=== PATIENT | male | born 1965 | race African-American/Black ===

== ENCOUNTER 2018-06-07 22:10 | Inpatient (IN) | payer MEDICARE ==
[~2018-06-07] VITALS: Ht 180.3 cm; Wt 132.5 kg
[~2018-06-07 22:10] MED LIST: ETOMIDATE 40 MG/ 20ML VIAL IV ONE; SUCCINYLCHOLINE 200 MG/10 ML SYR ONE
--- OUTSIDE RECORDS SUMMARY | 2018-06-07 22:16 | XMS REPORT | Continuity of Care Document ---
Author Author [facility] Organization Interface Address Unknown Phone Unavailable Problems Problem Status Onset Date Classification Date Reported Comments Source CHF EXACERBATION, TIA Active 05/30/2018 [place] CHEST PAIN/SOB/SLURRED SPEACH Active 05/29/2018 [facility] CHEST PAIN, CHOLELITHIASIS Active 05/03/2018 [facility] SHORTNESS OF BREATH Active 05/03/2018 [facility] RESPIRATORY DISTRESS, CHF EXACERBATION Active 03/31/2018 [facility] SOB/CP Active 03/31/2018 [facility] CHEST PAIN/DIFFICULTY BREATHING Active 03/26/2018 [facility] CHEST PAIN, DYSPNEA Active 03/26/2018 [facility] HYPERCAPNIC RESPIRATORY FAILURE Active 01/31/2018 [facility] SHORTNESS OR BREATH, RESPIRATORY ACIDOSI Active 01/05/2018 [facility] SHORTNESS OR BREATH Active [facility]/05/[facility] CHEST [facility]IN Active 11/30/2017 [facility] ACUTE EXACERBATION OF CHF,ACUTE RESPIRAT Active 11/30/2017 [facility] Hypertensive heart and chronic kidney disease with heart failure and stage 1 through stage 4 chronic kidney disease, or unspecified chronic kidney disease 11/15/2017 02/14/2018 [facility] ELEVATED TROPONIN, HTN, SOB, RESP FAILUR Active 11/05/2017 [facility] Hypertension Resolved Problem 02/14/2018 [facility] Type II diabetes mellitus poorly controlled Active Problem 02/14/2018 [facility] Shortness of breath 02/14/2018 [facility] Acute respiratory failure with hypercapnia 02/14/2018 [facility] Acute respiratory failure with hypoxia 02/14/2018 [facility] Acute kidney failure, unspecified 02/14/2018 [facility] Morbid obesity due to excess calories 02/14/2018 [facility] Cardiomyopathy, unspecified 02/14/2018 [facility] Acute systolic heart failure 02/14/2018 [facility] Body mass index 36.0-36.9, adult 02/14/2018 [facility] Obstructive sleep apnea (pediatric) 02/14/2018 [facility] Chronic kidney disease, unspecified 02/14/2018 [facility] ABNORMAL LEVELS OF OTHER SERUM ENZYMES Active [facility] ESSENTIAL (PRIMARY) HYPERTENSION Active [facility] SHORTNESS OF BREATH Active [facility] ACUTE RESPIRATORY FAILURE, UNSP W HYPOXI Active [facility] ACIDOSIS Active [facility] RESPIRATORY FAILURE, UNSPECIFIED WITH HY Active [facility] CHEST PAIN, UNSPECIFIED Active [facility] DYSPNEA, UNSPECIFIED Active [facility] CALCULUS OF GALLBLADDER W/O CHOLECYSTITI Active [facility] TRANSIENT CEREBRAL ISCHEMIC ATTACK, UNSP Active [facility] HEART FAILURE, UNSPECIFIED Active [facility] Medications Medication Details Route Status Patient Instructions Ordering Provider Order Date Source Albuterol 0.83 MG/ML Inhalant Solution 2.49 mg=3 mL, INHALATION, Q6H, PRN wheezing, coughing, or shortness of breath, # 100 ea, 5 Refill(s), Pharmacy: [id number] Active 02/03/2018 [facility] Furosemide 40 MG Oral Tablet [Lasix] 40 mg=1 tab, PO, BID, # 60 tab, 5 Refill(s), Pharmacy: [id number] Active 02/03/2018 [facility] Metformin hydrochloride 500 MG Oral Tablet 500 mg, 1 tab, Route: PO, Drug form: TAB, BID, Dosing Weight 131, kg, Start date: 02/03/18 9:00:00 CDT, Duration: 30 day, Stop date: 03/04/18 17:00:00 CDTNotes: (Same as: Glucophage) Take with meal Inactive 02/03/2018 [facility] Insulin Lispro 2 unit, 0.02 mL, Route: SUB-Q, Drug form: SOLN, ONCE, Dosing Weight 131, kg, Start date: 02/02/18 23:24:00 CDT, Stop date: 02/02/18 23:24:00 CDTNotes: (Same as: Humalog ) Roll in palms of hands gently; Do not shake `vigorously. "Single Patient Use Only " WASTE: F/P - Black; E - Municipal Trash Bin Stable for 28 days at room temperature. Expires in days from Date No Longer Active 02/03/2018 [facility] Enoxaparin 40 mg, 0.4 mL, Route: SUB-Q, Drug form: INJ, [id number], Dosing Weight 131, kg, Start date: 02/02/18 11:00:00 CDT, Duration: 30 day, Stop date: 03/03/18 23:00:00 CDTNotes: (Same as: Lovenox) No Longer Active 02/02/2018 [facility] Prednisone 20 mg, 1 tab, Route: PO, Drug form: TAB, Daily, Dosing Weight 131, kg, Start date: 02/02/18 9:00:00 CDT, Stop date: 03/03/18 9:00:00 CDTNotes: Take with food. No Longer Active 02/02/2018 [facility] Lasix 40 mg, 4 mL, Route: IVP, Drug form: INJ, BID, Dosing Weight 131, kg, Start date: 02/01/18 11:53:00 CDT, Duration: 30 day, Stop date: 03/03/18 9:00:00 CDTNotes: (Same as: Lasix) MEDICATION WASTE Product Size: 40 mg Product Wasted: ___ mg No Longer Active 02/01/2018 [facility] Acetaminophen 325 MG / Hydrocodone Bitartrate 10 MG Oral Tablet [Pawnee 10/325] 1 tab, Route: PO, Drug Form: TAB, Dosing Weight 98.182, kg, Q6H, PRN Pain Score 4-6, Start date: 02/01/18 11:40:00 CDT, Duration: 30 day, Stop date: 03/03/18 11:39:00 CDTNotes: Do not exceed 4gm/day of acetaminophen. (Same as: P[place]nee 325/10) No Longer Active 02/01/2018 [facility] Morphine 6 mg, 3 mL, Route: PO, Drug form: SOLN, Q4H, Dosing Weight 131, kg, PRN Pain Score 7-10, Start date: 02/01/18 11:09:00 CDT, Duration: 30 day, Stop date: 03/03/18 11:08:00 CDTNotes: (Same as:MORPhine Sulfate) No Longer Active 02/01/2018 [facility] valsartan 240 mg, 3 tab, Route: PO, Drug form: TAB, Daily, Dosing Weight 98.182, kg, Start date: 02/01/18 9:00:00 CDT, Duration: 30 day, Stop date: 03/02/18 9:00:00 CDTNotes: Same as Diovan No Longer Active 02/01/2018 [facility] potassium chloride 10 mEq oral tablet, extended release 10 mEq, 1 tab, Route: PO, Drug form: ERTAB, Daily, Dosing Weight 98.182, kg, Start date: 02/01/18 9:00:00 CDT, Duration: 30 day, Stop date: 03/02/18 9:00:00 CDTNotes: (Same as: K-Dur 10) "Do Not Crush" With food and full glass of water No Longer Active 02/01/2018 [facility] NIFEdipine 30 mg oral tablet, extended release 30 mg, 1 tab, Route: PO, Drug form: ERTAB, Daily, Dosing Weight 98.182, kg, Start date: 02/01/18 9:00:00 CDT, Duration: 30 day, Stop date: 03/02/18 9:00:00 CDTNotes: (Same as: Adalat CC, Procardia XL) Give on empty stomach. Take 1 hour before or 2 hours after meal; "Avoid grapefruit and grapefruit juice". Do not crush No Longer Active 02/01/2018 [facility] Aspirin 81 MG Enteric Coated Tablet 81 mg, 1 tab, Route: PO, Drug form: ECTAB, Daily, Dosing Weight 98.182, kg, Start date: 02/01/18 9:00:00 CDT, Duration: 30 day, Stop date: 03/02/18 9:00:00 CDTNotes: Do not crush or chew. (Same As: Ecotrin) No Longer Active 02/01/2018 [facility] Lasix 40 mg, Route: IVP, Drug form: INJ, BID Diuretic, Dosing Weight 98.182, kg, Start date: 02/01/18 8:00:00 CDT, Duration: 30 day, Stop date: 03/02/18 16:00:00 CDT No Longer Active 02/01/2018 [facility] Albuterol 0.833 MG/ML / Ipratropium [place] 0.167 MG/ML Inhalant Solution 3 mL, Route: NEB, Drug Form: SOLN, Dosing Weight 98.182, kg, RQ6H, Start date: 02/01/18 2:00:00 CDT, Duration: 30 day, Stop date: 03/02/18 20:00:00 CDTNotes: (Same as: Duoneb) No Longer Active 02/01/2018 [facility] methylPREDNISolone SODium SUCCinate 40 mg, 1 mL, Route: IVP, Drug form: INJ, Q8H, Dosing Weight 98.182, kg, Start date: 02/01/18 0:00:00 CDT, Duration: 5 day, Stop date: 02/05/18 16:00:00 CDTNotes: (Same as:Solu-MEDROL, A-Methapred) Inactive 02/01/2018 [facility] Acetaminophen 325 MG / Hydrocodone Bitartrate 10 MG Oral Tablet [P[place]nee 10/325] 1 tab, Route: PO, Drug Form: TAB, Dosing Weight 98.182, kg, Q6H, Start date: 02/01/18 0:00:00 CDT, Duration: 30 day, Stop date: 03/02/18 18:00:00 CDTNotes: Do not exceed 4gm/day of acetaminophen. (Same as: P[place] 325/10) Inactive 02/01/2018 [facility] Furosemide 40 MG Oral Tablet [Lasix] 40 mg=1 tab, PO, BID, 0 Refill(s) No Longer Active 02/01/2018 [facility] atorvastatin 20 mg oral tablet 20 mg=1 tab, PO, Bedtime, # 30 tab, 0 Refill(s) Active 02/01/2018 [facility] carvedilol 25 mg oral tablet 25 mg=1 tab, PO, BID, # 180 tab, 1 Refill(s) Active 02/01/2018 [facility] zolpidem 10 mg oral tablet 10 mg=1 tab, PO, Bedtime, # 14 tab, 0 Refill(s) No Longer Active 02/01/2018 [facility] Morphine 2 mg, 2 mL, Route: IVP, Drug form: SOLN, Q4H, Dosing Weight 98.182, kg, PRN Pain Score 7-10, Priority: STAT, Start date: 01/31/18 21:01:00 CDT, Duration: 30 day, Stop date: 03/02/18 21:00:00 CDTNotes: Preservative free. (Same as: Morphine Sulfate-PF) No Longer Active 02/01/2018 [facility] Levofloxacin 750 mg, 150 mL, Route: IVPB, Drug form: SOLN, [id number], Dosing Weight 98.182, kg, for CrCl >49 mL/min, Start date: 01/31/18 21:00:00 CDT, Duration: 5 day, Stop date: 02/04/18 21:00:00 CDT, ABX Indication: Non-PNA Respiratory Tract InfectionNotes: (Same as:Levaquin) No Longer Active 02/01/2018 [facility] Ambien 5 mg, 1 tab, Route: PO, Drug form: TAB, Bedtime, Dosing Weight 98.182, kg, Start date: 01/31/18 21:00:00 CDT, Duration: 30 day, Stop date: 03/01/18 21:00:00 CDTNotes: (Same As: Ambien) No Longer Active 02/01/2018 [facility] carvedilol 25 mg, 2 tab, Route: PO, Drug form: TAB, Q12H, Dosing Weight 98.182, kg, Start date: 01/31/18 21:00:00 CDT, Duration: 30 day, Stop date: 03/02/18 9:00:00 CDTNotes: Give with food. (Same As: Coreg) No Longer Active 02/01/2018 [facility] atorvastatin 20 mg, 2 tab, Route: PO, Drug form: TAB, Bedtime, Dosing Weight 98.182, kg, Start date: 01/31/18 21:00:00 CDT, Duration: 30 day, Stop date: 03/01/18 21:00:00 CDTNotes: (Same As: Lipitor) No Longer Active 02/01/2018 [facility] Insulin Lispro 15 unit, 0.15 mL, Route: SUB-Q, Drug form: SOLN, TID-Before Meals, Dosing Weight 98.182, kg, PRN Blood Glucose Results, Start date: 01/31/18 20:38:00 CDT, Duration: 30 day, Stop date: 03/02/18 20:37: 00 CDTNotes: (Same as: Humalog ) Roll in palms of hands gently; Do not shake `vigorously. "Single Patient Use Only " WASTE: F/P - Black; E - Municipal Trash Bin Stable for 28 days at room temperature. Expires in days from Date No Longer Active 02/01/2018 [facility] Glucagon 1 mg, Route: IM, Drug form: PDR/INJ, PRN, Dosing Weight 98.182, kg, PRN Blood Glucose Results, Start date: 01/31/18 20:38:00 CDT, Duration: 30 day, Stop date: 03/02/18 20:37:00 CDT No Longer Active 02/01/2018 [facility] Dextrose 50% Syringe 25 gm, 50 mL, Route: IVP, Drug Form: INJ, Dosing Weight 98.182, kg, PRN, PRN Blood Glucose Results, Start date: 01/31/18 20:38:00 CDT, Duration: 30 day, Stop date: 03/02/18 20:37:00 CDT No Longer Active 02/01/2018 [facility] Albuterol 0.83 MG/ML Inhalant Solution 2.5 mg, 3.01 mL, Route: NEB, Drug form: SOLN, RQ2H, Dosing Weight 98.182, kg, PRN Wheezing, Priority: Routine, Start date: 01/31/18 20:35:00 CDT, Duration: 30 day, Stop date: 03/02/18 20:34:00 CDTNotes: SEE RT DOCUMENTATION (Same as: Donnell) No Longer Active 02/01/2018 [place] Sodium Chloride 0.9% (Bolus) IV 1,000 mL, 1000 ml/hr, Infuse Over: 1 hr, Route: IV, 1,000, Drug form: INJ, ONCE, Priority: STAT, Dosing Weight 98.182 kg, Start date: 01/31/18 18:05:00 CDT, Stop date: 01/31/18 18:05:00 CDT Inactive 01/31/2018 [facility] Naloxone 2 mg, 2 mL, Route: IVP, Drug form: INJ, ONCE, Dosing Weight 98.182, kg, Priority: STAT, Start date: 01/31/18 18:05:00 CDT, Stop date: 01/31/18 18:05:00 CDTNotes: (Same as: Tanesha) MEDICATION WASTE Product Size: 2 mg Product Wasted: ___ mg Inactive 01/31/2018 [facility] Albuterol 0.833 MG/ML / Ipratropium [place] 0.167 MG/ML Inhalant Solution [DuoNeb] 9 mL, Route: NEB, Drug Form: SOLN, Dosing Weight 98.182, kg, PRN, PRN Respiratory Pathway, Start date: 01/31/18 18:04:00 CDT, Duration: 30 day, Stop date: 03/02/18 18:03:00 CDTNotes: (Same as: Duoneb) No Longer Active 01/31/2018 [facility] Solu-Medrol 125 mg, Route: IVP, ONCE, Dosing Weight 98.182, kg, Priority: STAT, Start date: 01/31/18 17:18:00 CDT, Stop date: 01/31/18 17:18:00 CDT Inactive 01/31/2018 [facility] Saline Flush 0.9% 10 mL, Route: IVP, Drug Form: INJ, Dosing Weight 98.182, kg, PRN, PRN Line Flush, Start date: 01/31/18 17:08:00 CDT, Duration: 30 day, Stop date: 03/02/18 17:07:00 CDTNotes: (Same as: BD Posiflush) No Longer Active 01/31/2018 [facility] Furosemide 40 MG Oral Tablet [Lasix] 40 mg=1 tab, PO, BID, # 60 tab, 0 Refill(s), Pharmacy: [facility] Active 01/09/2018 [facility] NIFEdipine 30 mg oral tablet, extended release 30 mg=1 tab, PO, Daily, # 30 tab, 0 Refill(s), Pharmacy: [id number] Active 01/09/2018 [facility] predniSONE 20 mg oral tablet 20 mg=1 tab, PO, Daily, X 5 day, # 5 tab, 0 Refill(s), Pharmacy: [id number] Active 01/09/2018 [facility] valsartan 80 mg oral tablet 240 mg=3 tab, PO, Daily, # 90 tab, 0 Refill(s), Pharmacy: [facility] Active 01/09/2018 [facility] carvedilol 25 mg oral tablet 25 mg=1 tab, PO, Q12H, # 60 tab, 0 Refill(s), Pharmacy: [id number] Active 01/09/2018 [facility] Furosemide 40 MG Oral Tablet [Lasix] 40 mg, 1 tab, Route: PO, Drug form: TAB, BID, Dosing Weight 134.4, kg, Start date: 01/09/18 10:00:00 CDT, Duration: 30 day, Stop date: 02/08/18 9:00:00 CDTNotes: (Same as: Lasix) May cause GI upset. Give with food or milk. Inactive 01/09/2018 [facility] Nifedical XL 30 mg, 1 tab, Route: PO, Drug form: ERTAB, Daily, Dosing Weight 134.4, kg, Priority: NOW, Start date: 01/08/18 18:06:00 CDT, Duration: 30 day, Stop date: 02/07/18 9:00:00 CDTNotes: (Same as: Adalat C C, Procardia XL) Give on empty stomach. Take 1 hour before or 2 hours after meal; "Avoid grapefruit and grapefruit juice". Do not crush No Longer Active 01/08/2018 [facility] Prednisone 20 mg, 1 tab, Route: PO, Drug form: TAB, Daily, Dosing Weight 134.4, kg, Start date: 01/08/18 9:00:00 CDT, Stop date: 02/06/18 9:00:00 CDTNotes: Take with food. No Longer Active 01/08/2018 [facility] valsartan 240 mg, 3 tab, Route: PO, Drug form: TAB, Daily, Dosing Weight 134.4, kg, Start date: 01/08/18 9:00:00 CDT, Duration: 30 day, Stop date: 02/06/18 9:00:00 CDTNotes: Same as Diovan No Longer Active 01/08/2018 [facility] carvedilol 25 mg, 2 tab, Route: PO, Drug form: TAB, Q12H, Dosing Weight 134.4, kg, Start date: 01/08/18 9:00:00 CDT, Duration: 30 day, Stop date: 02/06/18 21:00:00 CDTNotes: Give with food. (Same As: Coreg) No Longer Active 01/08/2018 [facility] carvedilol 12.5 mg, 1 tab, Route: PO, Drug form: TAB, Q12H, Dosing Weight 134.4, kg, Start date: 01/07/18 21:00:00 CDT, Duration: 30 day, Stop date: 02/06/18 9:00:00 CDTNotes: Give with food. (Same As: Coreg) Inactive 01/08/2018 [facility] atorvastatin 20 mg, 2 tab, Route: PO, Drug form: TAB, Bedtime, Dosing Weight 134.4, kg, Start date: 01/07/18 21:00:00 CDT, Duration: 30 day, Stop date: 02/05/18 21:00:00 CDTNotes: (Same As: Lipitor) No Longer Active 01/08/2018 [facility] Amitriptyline 25 mg, 1 tab, Route: PO, Drug form: TAB, Bedtime, Dosing Weight 134.4, kg, Start date: 01/07/18 21:00:00 CDT, Duration: 30 day, Stop date: 02/05/18 21:00:00 CDTNotes: (Same as: Elavil) No Longer Active 01/08/2018 [facility] valsartan 160 mg, 1 tab, Route: PO, Drug form: TAB, Daily, Dosing Weight 134.4, kg, Start date: 01/07/18 15:00:00 CDT, Duration: 30 day, Stop date: 02/06/18 9:00:00 CDTNotes: Same as Diovan Inactive 01/07/2018 [facility] Hydralazine 10 mg, 0.5 mL, Route: IVP, Drug form: INJ, Q6H, Dosing Weight 134.4, kg, PRN Hypertension, Start date: 01/07/18 13:56:00 CDT, Duration: 30 day, Stop date: 02/06/18 13:55:00 CDTNotes: (Same as: Joan price) Push over 5 minutes No Longer Active 01/07/2018 [facility] Insulin Lispro 3 unit, 0.03 mL, Route: SUB-Q, Drug form: SOLN, TID-Before Meals, Dosing Weight 134.4, kg, PRN Blood Glucose Results, Start date: 01/07/18 11:35:00 CDT, Duration: 30 day, Stop date: 02/06/18 11:34:00 CDTNotes: (Same as: Humalog ) Roll in palms of hands gently; Do not shake `vigorously. "Single Patient Use Only " WASTE: F/P - Black; E - Municipal Trash Bin Stable for 28 days at room temperature. Expires in days from Date No Longer Active 01/07/2018 [facility] Insulin Glargine 100 UNT/ML Injectable Solution [Lantus] 20 unit, 0.2 mL, Route: SUB-Q, Drug form: SOLN, Daily, Dosing Weight 134.4, kg, Start date: 01/07/18 9:55:00 CDT, Duration: 30 day, Stop date: 02/06/18 9:00:00 CDTNotes: (Same as: Lantus) Do not hold insulin without contacting prescriber WASTE: F/P - Black; E - Municipal Trash Bin "single patient use only" No Longer Active 01/07/2018 [facility] Glucagon 1 mg, Route: IM, Drug form: PDR/INJ, PRN, Dosing Weight 134.4, kg, PRN Blood Glucose Results, Start date: 01/06/18 16:46:00 CDT, Duration: 30 day, Stop date: 02/05/18 16:45:00 CDT No Longer Active 01/06/2018 [facility] Dextrose 50% Syringe 25 gm, 50 mL, Route: IVP, Drug Form: INJ, Dosing Weight 134.4, kg, PRN, PRN Blood Glucose Results, Start date: 01/06/18 16:46:00 CDT, Duration: 30 day, Stop date: 02/05/18 16:45:00 CDT No Longer Active 01/06/2018 [facility] Insulin Lispro 2 unit, 0.02 mL, Route: SUB-Q, Drug form: SOLN, TID-Before Meals, Dosing Weight 134.4, kg, PRN Blood Glucose Results, Start date: 01/06/18 16:46:00 CDT, Duration: 30 day, Stop date: 02/05/18 16:45:00 CDTNotes: (Same as: Humalog ) Roll in palms of hands gently; Do not shake `vigorously. "Single Patient Use Only " WASTE: F/P - Black; E - Municipal Trash Bin Stable for 28 days at room temperature. Expires in days from Date No Longer Active 01/06/2018 [facility] Acetaminophen 325 MG / Hydrocodone Bitartrate 5 MG Oral Tablet [Pawnee 5/325] 1 tab, Route: PO, Drug Form: TAB, Dosing Weight 134.4, kg, Q4H, PRN Pain Score 4-6, Start date: 01/06/18 11:43:00 CDT, Duration: 30 day, Stop date: 02/05/18 11:42:00 CDTNotes: (Same as: [place] 325/5) Do not exceed 4gm/day of acetaminophen. No Longer Active 01/06/2018 [facility] Tylenol 650 mg, 2 tab, Route: PO, Drug form: TAB, Q6H, Dosing Weight 134.4, kg, PRN Pain 1-3/Temp > 100.4 F, Start date: 01/06/18 11:43:00 CDT, Duration: 30 day, Stop date: 02/05/18 11:42:00 CDTNotes: Do not exceed 4 gm/day. (Same as: Tylenol) No Longer Active 01/06/2018 [facility] methylPREDNISolone SODium SUCCinate 40 mg, 1 mL, Route: IVP, Drug form: INJ, Q12H, Dosing Weight 134.4, kg, Start date: 01/06/18 9:00:00 CDT, Duration: 30 day, Stop date: 02/04/18 21:00:00 CDTNotes: (Same as:Solu-MEDROL, A-Methapred) No Longer Active 01/06/2018 [facility] Albuterol 0.833 MG/ML / Ipratropium [place] 0.167 MG/ML Inhalant Solution 3 mL, Route: NEB, Drug Form: SOLN, Dosing Weight 134.4, kg, RQ6H, Start date: 01/06/18 8:00:00 CDT, Duration: 30 day, Stop date: 02/05/18 2:00:00 CDTNotes: (Same as: Duoneb) No Longer Active 01/06/2018 [facility] Enoxaparin 40 mg, 0.4 mL, Route: SUB-Q, Drug form: INJ, [id number], Dosing Weight 134.4, kg, Consider for obese patients, Start date: 01/06/18 7:00:00 CDT, Duration: 30 day, Stop date: 02/04/18 19:00:00 CDTNotes: (Same as: Lovenox) No Longer Active 01/06/2018 [facility] Budesonide 0.25 MG/ML Inhalant Solution 0.5 mg, 2 mL, Route: NEB, Drug form: SUSP, RQ12H, Dosing Weight 134.4, kg, Start date: 01/06/18 6:52:00 CDT, Stop date: 02/04/18 20:00:00 CDT, Notes: (Same As: Pulmicort) No Longer Active 01/06/2018 [facility] Albuterol 0.833 MG/ML / Ipratropium [place] 0.167 MG/ML Inhalant Solution [DuoNeb] 3 ml, Route: NEB, Drug Form: SOLN, Dosing Weight 134.4, kg, PRN, PRN Respiratory Pathway, Start date: 01/06/18 6:52:00 CDT, Duration: 30 day, Stop date: 02/05/18 6:51:00 CDTNotes: (Same as: Duoneb) No Longer Active 01/06/2018 [facility] Lasix 40 mg, 4 mL, Route: IVP, Drug form: INJ, Q12H, Dosing Weight 134.4, kg, Start date: 01/06/18 6:52:00 CDT, Duration: 30 day, Stop date: 02/04/18 21:00:00 CDTNotes: (Same as: Lasix) MEDICATION WASTE Product Size: 40 mg Product Wasted: ___ mg No Longer Active 01/06/2018 [facility] Albuterol 0.833 MG/ML / Ipratropium [place] 0.167 MG/ML Inhalant Solution 3 mL, Route: NEB, Drug Form: SOLN, Dosing Weight 134, kg, ONCE, STAT, Start date: 01/06/18 5:38:00 CDT, Stop date: 01/06/18 5:38:00 CDTNotes: (Same as: Duoneb) Inactive 01/06/2018 [facility] Albuterol 0.83 MG/ML Inhalant Solution 10 mg, 12.05 mL, Route: NEB, Drug form: SOLN, Continuous, Dosing Weight 134, kg, Priority: STAT, Start date: 01/06/18 5:38:00 CDT, Duration: 30 day, Stop date: 02/05/18 5:37:00 CDTNotes: SEE RT DOCUMENTATION (Same as: Proventil) Inactive 01/06/2018 [facility] Aspirin 325 mg, 1 tab, Route: PO, Drug form: ECTAB, ONCE, Dosing Weight 134, kg, Priority: STAT, Start date: 01/06/18 5:09:00 CDT, Stop date: 01/06/18 5:09:00 CDTNotes: (Do Not Crush) Do not crush or chew. Inactive 01/06/2018 [facility] Zofran 4 mg, Route: IVP, Drug form: INJ, ONCE, Dosing Weight 142.591, kg, Priority: STAT, Start date: 01/06/18 3:36:00 CDT, Stop date: 01/06/18 3:36:00 CDT Inactive 01/06/2018 [facility] Morphine 4 mg, Route: IVP, ONCE, Dosing Weight 142.591, kg, Priority: STAT, Start date: 01/06/18 3:36:00 CDT, Stop date: 01/06/18 3:36:00 CDT Inactive 01/06/2018 [facility] Saline Flush 0.9% 10 mL, Route: IVP, Drug Form: INJ, Dosing Weight 142.591, kg, PRN, PRN Line Flush, Start date: 01/06/18 3:20:00 CDT, Duration: 30 day, Stop date: 02/05/18 3:19:00 CDTNotes: Same as: BD Posiflush Sterile No Longer Active 01/06/2018 [facility] potassium chloride 10 mEq oral capsule, extended release 10 mEq=1 cap, PO, Daily, # 30 cap, 0 Refill(s), Pharmacy: [id number] Active 12/04/2017 [facility] Furosemide 40 MG Oral Tablet [Lasix] 40 mg=1 tab, PO, BID, X 30 day, # 60 tab, 1 Refill(s), Pharmacy: [facility] [id number] Active 12/04/2017 [facility] valsartan 160 mg oral tablet 160 mg=1 tab, PO, Daily, X 30 day, # 30 tab, 0 Refill(s), Pharmacy: [facility] [id number] Active 12/04/2017 [facility] atorvastatin 20 mg oral tablet 20 mg=1 tab, PO, Bedtime, X 30 day, # 30 tab, 0 Refill(s), Pharmacy: [facility] Store [id number] Active 12/04/2017 [facility] Metformin hydrochloride 500 MG Oral Tablet 500 mg=1 tab, PO, BID-Meals, X 30 day, # 60 tab, 0 Refill(s), Pharmacy: [facility] [id number] Active 12/04/2017 [facility] Accu-Chek Guide Blood Glucose Test Strips 1 ea, MISC, Daily, Use for blood glucose monitoring., # 100 ea, Not insulin dependent, Does not use insulin pump, Last DM eval date 12/04/17, 0 Refill(s) Active 12/04/2017 [facility] Accu-Chek FastClix Lancets 1 ea, MISC, Daily, Use for blood glucose monitoring., # 30 ea, Not insulin dependent, Does not use insulin pump, Last DM eval date 12/04/17, 0 Refill(s) Active 12/04/2017 [facility] Nebulizer 1 ea, MISC, ONCALL, # 1 ea, 0 Refill(s) Active 12/04/2017 [facility] Albuterol 0.83 MG/ML Inhalant Solution 2.49 mg=3 mL, INHALATION, Q6H, PRN wheezing, coughing, or shortness of breath, # 100 ea, 0 Refill(s), Pharmacy: [facility] [place] [id number] Active 12/04/2017 [facility] Accu-Chek Guide Blood Glucose Meter 1 ea, MISC, ONCE, Use for blood glucose monitoring, # 1 ea, Not insulin dependent, Does not use insulin pump, Last DM eval date 12/04/17, 0 Refill(s) Active 12/04/2017 [facility] potassium chloride 20 mEq oral tablet, extended release 20 mEq=1 tab, PO, Daily, X 30 day, # 30 tab, 0 Refill(s), Pharmacy: [facility] [id number] Active 12/04/2017 [facility] valsartan 160 mg, 1 tab, Route: PO, Drug form: TAB, Daily, Dosing Weight 133.8, kg, Start date: 12/03/17 9:00:00 CDT, Duration: 30 day, Stop date: 01/01/18 9:00:00 CDTNotes: Same as Diovan No Longer Active 12/03/2017 [facility] Sodium Chloride 0.111 MEQ/ML Nasal [place] [Sea Mist] 2 spray, Route: NASAL, BID, Drug form: SOLN, Start date: 12/02/17 18:30:00 CDT, Duration: 2 day, Stop date: 12/04/17 17:00:00 CDTNotes: (Same as: [place], Deep Sea Nasal [place]). No Longer Active 12/02/2017 [facility] valsartan 80 mg, 1 tab, Route: PO, Drug form: TAB, Daily, Dosing Weight 133.8, kg, Start date: 12/02/17 9:00:00 CDT, Duration: 30 day, Stop date: 12/31/17 9:00:00 CDTNotes: Same as Diovan No Longer Active 12/02/2017 [facility] Aspirin 81 MG Enteric Coated Tablet 81 mg, 1 tab, Route: PO, Drug form: ECTAB, Daily, Dosing Weight 133.8, kg, Start date: 12/02/17 9:00:00 CDT, Duration: 30 day, Stop date: 12/31/17 9:00:00 CDTNotes: Do not crush or chew. (Same As: Ecotrin) No Longer Active 12/02/2017 [facility] Ambien 10 mg, 2 tab, Route: PO, Drug form: TAB, Bedtime, Dosing Weight 133.8, kg, PRN Insomnia, Start date: 12/02/17 0:23:00 CDT, Duration: 30 day, Stop date: 01/01/18 0:22:00 CDTNotes: (Same As: Ambien) No Longer Active 12/02/2017 [facility] carvedilol 12.5 mg, 1 tab, Route: PO, Drug form: TAB, Q12H, Dosing Weight 133.8, kg, Start date: 12/01/17 21:00:00 CDT, Duration: 30 day, Stop date: 12/31/17 9:00:00 CDTNotes: Give with food. (Same As: Coreg) No Longer Active 12/02/2017 [facility] Amitriptyline 25 mg, 1 tab, Route: PO, Drug form: TAB, Bedtime, Dosing Weight 133.8, kg, Start date: 12/01/17 21:00:00 CDT, Duration: 30 day, Stop date: 12/30/17 21:00:00 CDTNotes: (Same as: Elavil) No Longer Active 12/02/2017 [facility] atorvastatin 20 mg, 2 tab, Route: PO, Drug form: TAB, Bedtime, Dosing Weight 127.273, kg, Start date: 12/01/17 21:00:00 CDT, Duration: 30 day, Stop date: 12/30/17 21:00:00 CDTNotes: (Same As: Lipitor) No Longer Active 12/02/2017 [facility] Metoprolol 5 mg, 5 mL, Route: IV, Drug form: INJ, Q6H, Dosing Weight 133.8, kg, PRN Tachycardia, Start date: 12/01/17 18:38:00 CDT, Duration: 30 day, Stop date: 12/31/17 18:37:00 CDTNotes: (Same as: Lopressor) Push over 2 minutes No Longer Active 12/01/2017 [facility] Nitroglycerin 0.4 MG Sublingual Tablet 0.4 mg, 1 tab, Route: SL, Drug form: TAB, Q5Min, Dosing Weight 133.8, kg, PRN Chest Pain, Start date: 12/01/17 18:38:00 CDT, Duration: 30 day, Stop date: 12/31/17 18:37:00 CDTNotes: (Same as:Nitroquick, Nitrostat) "Do Not Crush" Sublingual tablet No Longer Active 12/01/2017 [facility] Hydralazine 10 mg, 0.5 mL, Route: IVP, Drug form: INJ, Q4H, Dosing Weight 133.8, kg, PRN Hypertension, Start date: 12/01/17 18:38:00 CDT, Duration: 30 day, Stop date: 12/31/17 18:37:00 CDTNotes: (Same as: Aprmikyo line) Push over 5 minutes No Longer Active 12/01/2017 [facility] Miralax 17 gm, 1 pkt, Route: PO, Drug form: PWDR, Daily, Dosing Weight 133.8, kg, Start date: 12/01/17 16:00:00 CDT, Duration: 30 day, Stop date: 12/31/17 9:00:00 CDTNotes: Dissolve in 8 oz of water or juice. (Same as: Miralax) No Longer Active 12/01/2017 [facility] Aspirin 81 mg, 1 tab, Route: PO, Drug form: ECTAB, Daily, Dosing Weight 127.273, kg, Start date: 12/01/17 9:00:00 CDT, Duration: 30 day, Stop date: 12/30/17 9:00:00 CDTNotes: Do not crush or chew. (Same As: Ecotrin) No Longer Active 12/01/2017 [facility] Glucagon 1 mg, Route: IM, Drug form: PDR/INJ, PRN, Dosing Weight 133.8, kg, PRN Blood Glucose Results, Start date: 12/01/17 0:29:00 CDT, Duration: 30 day, Stop date: 12/31/17 0:28:00 CDT No Longer Active 12/01/2017 [facility] Dextrose 50% Syringe 25 gm, 50 mL, Route: IVP, Drug Form: INJ, Dosing Weight 133.8, kg, PRN, PRN Blood Glucose Results, Start date: 12/01/17 0:29:00 CDT, Duration: 30 day, Stop date: 12/31/17 0:28:00 CDT No Longer Active 12/01/2017 [facility] Insulin Lispro 5 unit, 0.05 mL, Route: SUB-Q, Drug form: SOLN, TID-Before Meals, Dosing Weight 133.8, kg, PRN Blood Glucose Results, Start date: 12/01/17 0:29:00 CDT, Duration: 30 day, Stop date: 12/31/17 0:28:00 CDTNotes: (Same as: Humalog ) Roll in palms of hands gently; Do not shake `vigorously. "Single Patient Use Only " WASTE: F/P - Black; E - Municipal Trash Bin Stable for 28 days at room temperature. Expires in days from Date No Longer Active 12/01/2017 [facility] hydrocortisone sodium phosphate INJ 40 mg, 0.8 mL, Route: IVP, Drug form: PDR/INJ, Q6H, Dosing Weight 133.8, kg, Start date: 12/01/17 0:00:00 CDT, Duration: 30 day, Stop date: 12/30/17 18:00:00 CDTNotes: (Same as: [place]) Inactive 12/01/2017 [facility] Acetaminophen 325 MG / Hydrocodone Bitartrate 5 MG Oral Tablet [[place] 5/325] 1 tab, Route: PO, Drug Form: TAB, Dosing Weight 133.8, kg, Q4H, PRN Pain Score 1-3, Start date: 11/30/17 23:36:00 CDT, Duration: 30 day, Stop date: 12/30/17 23:35:00 CDTNotes: (Same as: [place] 325/5) Do not exceed 4gm/day of acetaminophen. No Longer Active 12/01/2017 [facility] Albuterol 0.833 MG/ML / Ipratropium [place] 0.167 MG/ML Inhalant Solution [DuoNeb] 3 ml, Route: NEB, Drug Form: SOLN, Dosing Weight 133.8, kg, Q6H, PRN Respiratory Protocol, Start date: 11/30/17 23:29:00 CDT, Duration: 30 day, Stop date: 12/30/17 23:28:00 CDTNotes: (Same as: Duoneb) No Longer Active 12/01/2017 [facility] tramadol hydrochloride 50 MG Oral Tablet 50 mg, 1 tab, Route: PO, Drug form: TAB, Q6H, Dosing Weight 127.273, kg, PRN Pain Score 1-3, Start date: 11/30/17 22:58:00 CDT, Duration: 30 day, Stop date: 12/30/17 22:57:00 CDTNotes: Not to exceed 400mg/day. (Same As: Ultram) No Longer Active 12/01/2017 [facility] Lasix 60 mg, 6 mL, Route: IV, Drug form: INJ, Q8Hnow, Dosing Weight 127.273, kg, Start date: 11/30/17 22:00:00 CDT, Duration: 30 day, Stop date: 12/30/17 14:00:00 CDTNotes: (Same as: Lasix) MEDICATION WASTE Product Size: 40 mg Product Wasted: ___ mg No Longer Active 12/01/2017 [facility] Enoxaparin 40 mg, 0.4 mL, Route: SUB-Q, Drug form: INJ, [id number], Dosing Weight 127.273, kg, Start date: 11/30/17 22:00:00 CDT, Duration: 30 day, Stop date: 12/29/17 22:00:00 CDTNotes: (Same as: Lovenox) No Longer Active 12/01/2017 [facility] Ondansetron 4 mg, 2 mL, Route: IVP, Drug form: INJ, Q6H, Dosing Weight 127.273, kg, PRN Nausea & Vomiting, Start date: 11/30/17 21:35:00 CDT, Duration: 30 day, Stop date: 12/30/17 21:34:00 CDTNotes: (Same as: Zofran) MEDICATION WASTE Product Size: 4 mg Product Wasted: ___ mg No Longer Active 12/01/2017 [facility] Acetaminophen 650 mg, 2 tab, Route: PO, Drug form: TAB, Q4H, Dosing Weight 127.273, kg, PRN Pain 1-3/Temp > 100.4 F, Start date: 11/30/17 21:35:00 CDT, Duration: 30 day, Stop date: 12/30/17 21:34:00 CDTNotes: Do not exceed 4 gm/day. (Same as: Tylenol) No Longer Active 12/01/2017 [facility] Aspirin 324 mg, 4 tab, Route: CHEW, Drug form: CHEWTAB, ONCE, Dosing Weight 127.273, kg, Priority: STAT, Start date: 11/30/17 21:10:00 CDT, Stop date: 11/30/17 21:10:00 CDTNotes: Take with food. Inactive 12/01/2017 [facility] Lasix 40 mg, 4 mL, Route: IVP, Drug form: INJ, ONCE, Dosing Weight 127.273, kg, Priority: STAT, Start date: 11/30/17 20:08:00 CDT, Stop date: 11/30/17 20:08:00 CDTNotes: (Same as: Lasix) MEDICATION WASTE Product Size: 40 mg Product Wasted: ___ mg Inactive 12/01/2017 [facility] Zofran ODT 4 mg, Route: PO, Drug form: TABDIS, ONCE, Dosing Weight 127.273, kg, Priority: STAT, Start date: 11/30/17 19:59:00 CDT, Stop date: 11/30/17 19:59:00 CDT Inactive 12/01/2017 [facility] Morphine 4 mg, Route: IVP, ONCE, Dosing Weight 127.273, kg, Priority: STAT, Start date: 11/30/17 19:59:00 CDT, Stop date: 11/30/17 19:59:00 CDT Inactive 12/01/2017 [facility] Ativan 1 mg, Route: IVP, Drug form: INJ, ONCE, Dosing Weight 127.273, kg, Priority: STAT, Start date: 11/30/17 19:58:00 CDT, Stop date: 11/30/17 19:58:00 CDT Inactive 12/01/2017 [facility] Saline Flush 0.9% 10 mL, Route: IVP, Drug Form: INJ, Dosing Weight 127.273, kg, PRN, PRN Line Flush, Start date: 11/30/17 19:46:00 CDT, Duration: 30 day, Stop date: 12/30/17 19:45:00 CDTNotes: (Same as: BD Posiflush) No Longer Active 12/01/2017 [facility] valsartan 80 mg oral tablet 40 mg=0.5 tab, PO, Q12H, # 30 tab, 0 Refill(s), Pharmacy: [facility] [id number] No Longer Active 11/08/2017 [facility] Furosemide 40 MG Oral Tablet [Lasix] 40 mg=1 tab, PO, Daily, # 30 tab, 1 Refill(s), Pharmacy: [facility] [id number] No Longer Active 11/08/2017 [facility] carvedilol 12.5 mg oral tablet 12.5 mg=1 tab, PO, Q12H, # 60 tab, 1 Refill(s), Pharmacy: [facility] [id number] No Longer Active 11/08/2017 [facility] Aspirin 81 MG Enteric Coated Tablet 81 mg=1 tab, PO, Daily, # 30 tab, 1 Refill(s), Pharmacy: [facility] [id number] Active 11/08/2017 [facility] Furosemide 40 MG Oral Tablet [Lasix] 40 mg, 1 tab, Route: PO, Drug form: TAB, Daily, Dosing Weight 119.545, kg, Start date: 11/07/17 9:57:00 CDT, Duration: 30 day, Stop date: 12/07/17 9:00:00 CDTNotes: (Same as: Lasix) May cause GI upset. Give with food or milk. No Longer Active 11/07/2017 [facility] valsartan 40 mg, 0.5 tab, Route: PO, Drug form: TAB, Q12H, Dosing Weight 119.545, kg, Start date: 11/07/17 9:56:00 CDT, Duration: 30 day, Stop date: 12/07/17 9:00:00 CDTNotes: Same as Diovan No Longer Active 11/07/2017 [facility] Nitroglycerin 0.4 mg, 1 tab, Route: SL, Drug form: TAB, Q5Min, Dosing Weight 119.545, kg, PRN Chest Pain, Start date: 11/07/17 9:46:00 CDT, Duration: 3 doses or times, Stop date: Limited # of timesNotes: (Same as: Nitroquick, Nitrostat) "Do Not Crush" Sublingual tablet No Longer Active 11/07/2017 [facility] Sodium Chloride 0.9% (Bolus) IV 250 mL, 250 ml/hr, Infuse Over: 1 hr, Route: IV, 250, Drug form: INJ, ONCALL, Priority: Routine, Dosing Weight 119.545 kg, Start date: 11/07/17 9:00:00 CDT, Duration: 1 doses or times No Longer Active 11/07/2017 [place] Sodium Chloride 0.9% IV 750 mL 750 mL, Rate: 75 ml/hr, Infuse over: 10 hr, Route: IV, Dosing Weight 119.545 kg, Total Volume: 750, Start date: 11/07/17 8:11:00 CDT, Duration: 24 hr, Stop date: 11/08/17 8:10:00 CDT, 2.47, m2 Inactive 11/07/2017 [facility] Aspirin 81 mg, 1 tab, Route: PO, Drug form: ECTAB, Daily, Dosing Weight 119.545, kg, Start date: 11/06/17 13:01:00 CDT, Duration: 30 day, Stop date: 12/06/17 9:00:00 CDTNotes: Do not crush or chew. (Same As: Ecotrin) No Longer Active 11/06/2017 [facility] Sodium Chloride 0.9% (titrate) 1,000 mL 1,000 mL, Rate: 50 ml/hr, Infuse over: 20 hr, Dosing Weight 119.545, kg, Route: IV, Total Volume: 1,000, Start Date: 11/06/17 12:22:00 CDT, Duration: 30 day, Stop date: 12/06/17 12:21:00 CDT, Replace Every: 20 hr No Longer Active 11/06/2017 [facility] sodium chloride nasal spray 1 spray, Route: Each Affected Nostril, PRN, Drug form: SOLN, PRN Congestion, Start date: 11/06/17 11:04:00 CDT, Duration: 30 day, Stop date: 12/06/17 11:03:00 CDTNotes: (Same as: [place], Deep Sea Nasal [place]). No Longer Active 11/06/2017 [facility] carvedilol 12.5 mg, 1 tab, Route: PO, Drug form: TAB, Q12H, Dosing Weight 119.545, kg, Start date: 11/05/17 21:00:00 CDT, Duration: 30 day, Stop date: 12/05/17 9:00:00 CDTNotes: Give with food. (Same As: Coreg) No Longer Active 11/06/2017 [facility] Albuterol 0.83 MG/ML Inhalant Solution 2.49 mg, 3 mL, Route: NEB, Drug form: SOLN, PRN, Dosing Weight 119.545, kg, PRN Respiratory Protocol, Start date: 11/05/17 14:59:00 CDT, Duration: 30 day, Stop date: 12/05/17 14:58:00 CDTNotes: SEE RT DOCUMENTATION (Same as: Proventil) No Longer Active 11/05/2017 [facility] Acetaminophen 325 MG / Hydrocodone Bitartrate 10 MG Oral Tablet [[place] 10/325] 1 tab, PO, Q6H, knee and back pain, 0 Refill(s) Active 11/05/2017 [facility] amitriptyline 25 mg oral tablet 25 mg=1 tab, PO, Bedtime, # 30 tab, 1 Refill(s) Active 11/05/2017 [facility] Ambien 10 mg, PO, Bedtime, 0 Refill(s) Active 11/05/2017 [facility] meloxicam 15 mg oral tablet 15 mg=1 tab, PO, Daily, # 30 tab, 0 Refill(s) Active 11/05/2017 [facility] Hydrochlorothiazide 12.5 mg, 1 cap, Route: PO, Drug form: CAP, Daily, Dosing Weight 119.545, kg, Start date: 11/05/17 13:14:00 CDT, Duration: 30 day, Stop date: 12/05/17 9:00:00 CDTNotes: (Same as: Microzide) With food. No Longer Active 11/05/2017 [facility] Enoxaparin 40 mg, 0.4 mL, Route: SUB-Q, Drug form: INJ, [id number], Dosing Weight 119.545, kg, Start date: 11/05/17 11:00:00 CDT, Duration: 30 day, Stop date: 12/04/17 11:00:00 CDTNotes: (Same as: Lovenox) No Longer Active 11/05/2017 [facility] Lasix 40 mg, 4 mL, Route: IVP, Drug form: INJ, Daily, Dosing Weight 119.545, kg, Start date: 11/05/17 10:55:00 CDT, Duration: 30 day, Stop date: 12/05/17 9:00:00 CDTNotes: (Same as: Lasix) MEDICATION WASTE Product Size: 40 mg Product Wasted: ___ mg No Longer Active 11/05/2017 [facility] Acetaminophen 325 MG / Hydrocodone Bitartrate 5 MG Oral Tablet 1 tab, Route: PO, Drug Form: TAB, Dosing Weight 119.545, kg, Q4H, PRN Pain Score 4-6, Start date: 11/05/17 6:26:00 CDT, Duration: 30 day, Stop date: 12/05/17 6:25:00 CDTNotes: (Same as: [place] 325/5) Do not exceed 4gm/day of acetaminophen. No Longer Active 11/05/2017 [facility] Morphine 2 mg, 2 mL, Route: IVP, Drug form: SOLN, Q4H, Dosing Weight 119.545, kg, PRN Pain Score 7-10, Start date: 11/05/17 6:26:00 CDT, Duration: 30 day, Stop date: 12/05/17 6:25:00 CDTNotes: Preservative free. (Same as: Morphine Sulfate-PF) No Longer Active 11/05/2017 [facility] Ondansetron 4 mg, 2 mL, Route: IVP, Drug form: INJ, Q6H, Dosing Weight 119.545, kg, PRN Nausea & Vomiting, Start date: 11/05/17 6:26:00 CDT, Duration: 30 day, Stop date: 12/05/17 6:25:00 CDTNotes: (Same as: Zofran) MEDICATION WASTE Product Size: 4 mg Product Wasted: ___ mg No Longer Active 11/05/2017 [facility] Lasix 20 mg, 2 mL, Route: IVP, Drug form: INJ, ONCE, Dosing Weight 119.545, kg, Start date: 11/05/17 6:26:00 CDT, Stop date: 11/05/17 6:26:00 CDTNotes: (Same as: Lasix) Inactive 11/05/2017 [facility] Albuterol 0.833 MG/ML / Ipratropium [place] 0.167 MG/ML Inhalant Solution [DuoNeb] 3 mL, Route: NEB, Drug Form: SOLN, Dosing Weight 119.545, kg, ONCE, Start date: 11/05/17 4:47:00 CDT, Stop date: 11/05/17 4:47:00 CDTNotes: (Same as: Duoneb) Inactive 11/05/2017 [facility] Sodium Chloride 0.9% (Bolus) IV 500 mL, Infuse Over: 1 hr, Route: IV, ONCE, Priority: STAT, Dosing Weight 119.545 kg, Start date: 11/05/17 4:21:00 CDT, Stop date: 11/05/17 4:21:00 CDT Inactive 11/05/2017 [facility] Albuterol 0.83 MG/ML Inhalant Solution 2.49 mg, Route: NEB, Drug form: SOLN, ONCE, Dosing Weight 119.545, kg, Priority: STAT, Start date: 11/05/17 3:50:00 CDT, Stop date: 11/05/17 3:50:00 CDT Inactive 11/05/2017 [facility] Albuterol 0.833 MG/ML / Ipratropium [place] 0.167 MG/ML Inhalant Solution [DuoNeb] 3 mL, Route: NEB, Dosing Weight 119.545, kg, ONCE, Start date: 11/05/17 3:49:00 CDT, Stop date: 11/05/17 3:49:00 CDT Inactive 11/05/2017 [facility] Nitroglycerin 0.4 mg, Route: SL, ONCE, Dosing Weight 119.545, kg, Priority: STAT, Start date: 11/05/17 3:48:00 CDT, Stop date: 11/05/17 3:48:00 CDT Inactive 11/05/2017 [facility] methylPREDNISolone SODium SUCCinate 125 mg, 2 mL, Route: IVP, Drug form: INJ, ONCE, Dosing Weight 119.545, kg, Priority: STAT, Start date: 11/05/17 3:32:00 CDT, Stop date: 11/05/17 3:32:00 CDTNotes: (Same as:Solu- MEDROL, A-Methapred) Inactive 11/05/2017 [facility] Saline Flush 0.9% 10 mL, Route: IVP, Drug Form: INJ, Dosing Weight 119.545, kg, PRN, PRN Line Flush, Start date: 11/05/17 3:32:00 CDT, Duration: 30 day, Stop date: 12/05/17 3:31:00 CDTNotes: (Same as: BD Posiflush) No Longer Active 11/05/2017 [facility] Nitroglycerin 0.4 mg, 1 tab, Route: SL, Drug form: TAB, ONCE, Dosing Weight 119.545, kg, Priority: STAT, Start date: 11/05/17 3:31:00 CDT, Stop date: 11/05/17 3:31:00 CDTNotes: (Same as:Nitroquick, Nitrostat) "Do Not Crush" Sublingual tablet Inactive 11/05/2017 [facility] Aspirin 325 mg, 1 tab, Route: PO, Drug form: TAB, ONCE, Dosing Weight 119.545, kg, Priority: STAT, Start date: 11/05/17 3:31:00 CDT, Stop date: 11/05/17 3:31:00 CDTNotes: Take with food. Inactive 11/05/2017 [facility] Allergies, Adverse Reactions, Alerts Substance Category Reaction Severity Reaction type Status Date Reported Comments Source penicillins Assertion Drug allergy Active [facility] lisinopril Assertion Drug allergy Active [facility] Immunizations Immunization Date Given Site Status Last Updated Comments Source pneumococcal 23-valent vaccine 02/01/2018 Left Deltoid completed Jo[facility] Results Order Name Results Value Reference Range Date Interpretation Comments Source Carotid artery Doppler bilat US Carotid artery Doppler bilat Patient Name: FABIO CUEVA : 1965; Age: 52 years y/o Male MR: [id number] CAROTID DOPPLER Clinical Indication: - Slurred speech; Comparison: None. A cranial computed tomography scan from today was reviewed. TECHNIQUE: Pizano-scale, color Doppler and spectral Doppler of the carotid arteries was performed. Any reported ICA stenoses indirectly reference the distal internal carotid diameter as the denominator for the stenosis measurement, utilizing consensus panel criteria. FINDINGS: * PIZANO SCALE AND COLOR-FLOW: There is mild intimal thickening involving both common carotid arteries. There is no evidence of a significant stenosis. There is no significant plaquing or stenosis involving the carotid bulbs or visualized internal carotid arteries. * VELOCITY MEASUREMENTS RIGHT CAROTID SYSTEM : -Right internal carotid artery peak systolic velocity: Within normal limits, 79 cm/sec -ICA/CCA ratio (systolic velocity ratio): Within normal limits, 0.7 LEFT CAROTID SYSTEM : -Left internal carotid artery peak systolic velocity: Within normal limits, 97 cm/sec -ICA/CCA ratio (systolic velocity ratio): Within normal limits, 0.8 * VERTEBRAL ARTERIES: Both vertebral arteries were demonstrated. There is antegrade flow within both vertebral arteries. IMPRESSION: 1. There is mild intimal thickening involving both common carotid arteries. There is no significant plaquing involving the carotid bulbs or internal carotid arteries. There is no evidence of a significant stenosis. Consensus panel Doppler US criteria for diagnosis of ICA stenosis: Stenosis (%) ICA PSV (cm/sec) ICA/CCA ratio <50 <125 <2.0 50-69 125-230 2.0-4.0 >70 but less than >230 >4.0 near occlusion Near occlusion High, low, or Variable undetectable SL: [id number] 05/29/2018 - - Read by: Jayme Roberson MD Dictated Date/time: 05/29/18 22:19 Electronically Signed by: Jayme Roberson MD 05/29/18 22:22 FINAL REPORT [facility] Brain wo contrast CT Brain wo contrast CT Patient Name: FABIO CUEVA : 1965; Age: 52 years Male MR: [id number] Study: Brain wo contrast CT 05/29/2018 1:52 PM CDT Clinical Indication: - Slurred speech resolved, ?TIA. pt c/o numbness in left arm yesterday, slurred speech this morning at 0430 and chest pain and sob at 0930 this morning. HX HTN, DM. COMPARISON: January 18, 2006. TECHNIQUE: CT images were obtained from the foramen magnum to the vertex without the use of intravenous contrast on a multidetector CT. Coronal and sagittal reconstructions were obtained. Motion artifact limits detail. CT imaging performed at this location utilizes radiation dose optimization techniques which include one or more of the following: -Automated exposure control -Adjustment of the mA and/or kV according to patient size -Use of iterative reconstruction technique CT Radiation Dose DLP 1029 mGy-cm FINDINGS: BRAIN PARENCHYMA: There are normal pizano-white interfaces, sulci and gyri. There is no mass effect or midline shift. There is no extra-axial fluid collection, intraventricular or intraparenchymal hemorrhage. The sella and pineal regions are normal. The skull base, cerebellum and brainstem are normal. VENTRICLES: The ventricles are normal in size and configuration. The basilar cisterns are normal. ORBITS, MASTOIDS AND PARANASAL SINUSES: The visualized orbits are normal. The paranasal sinuses are normal. The mastoid air cells are clear. SKULL: There are no osseous abnormalities. If there is further concern for intracranial pathology or acute stroke, MRI of the brain may be performed for complete assessment. IMPRESSION: No mass, hemorrhage or subacute stroke. SL: [id number] 05/29/2018 - - Read by: Ben Fink MD Dictated Date/time: 05/29/18 14:12 Electronically Signed by: Ben Fink MD 05/29/18 14:19 FINAL REPORT [facility] Chest 1view DX Chest 1view DX Patient Name: FABIO CUEVA : 1965; Age: 52 years Male MR: [id number] Study: Chest 1view DX Order Time: 05/29/2018 1:09 PM CDT CLINICAL INDICATION: - Dyspnea on exertion, orthopnea COMPARISON: Chest radiograph on 05/03/2018 FINDINGS: Lines: None. Lungs: Low lung volumes and bibasilar atelectasis. No effusion or pneumothorax. Mediastinum: The cardiac silhouette is within normal limits of size. Midline trachea. Bones and soft tissues: No acute abnormalities. IMPRESSION: No acute cardiopulmonary abnormalities. SL: [id number] 05/29/2018 - - Read by: Luz Maria Ochoa MD Dictated Date/time: 05/29/18 13:23 Electronically Signed by: Luz Maria Ochoa MD 05/29/18 13:23 FINAL REPORT [facility] Abdomen RUQ US Abdomen RUQ US RIGHT UPPER QUADRANT ABDOMINAL ULTRASOUND DATED 05/03/2018 CLINICAL INDICATION: Acute right upper quadrant and epigastric abdominal pain. COMPARISON: None TECHNIQUE: Sonographic evaluation of the right upper quadrant was performed with supplemental color and pulsed Doppler. FINDINGS: LIVER: The liver is mildly enlarged (18.8 cm) and demonstrates diffusely increased parenchymal echotexture with diminished sound transmission, compatible with fatty infiltration. GALLBLADDER: The gallbladder is normally distended and contains a single mobile gallstone in the region of the fundus. There is no evidence of gallbladder wall thickening or pericholecystic fluid to suggest acute inflammation. BILE DUCTS: The common bile duct is normal in caliber measuring 2 mm. PANCREAS: The pancreas is poorly visualized. A segment of the mid pancreatic body is imaged and appears normal in caliber. RIGHT KIDNEY: The right kidney measures 12.5 cm longitudinally and maintains normal cortical thickness and normal cortical echotexture without evidence of acute collecting system obstruction. Note is made of a 2 cm right renal cortical cyst. Additional comments: There is no evidence of free intraperitoneal fluid in the right upper quadrant. The abdominal aorta and inferior vena cava are not well visualized. IMPRESSION: 1. Cholelithiasis without sonographic evidence of acute cholecystitis. SL:[id number] 05/03/2018 - - Read by: Beni Escobar MD Dictated Date/time: 05/03/18 23:57 Electronically Signed by: Beni Escobar MD 05/04/18 00:01 FINAL REPORT [address] DX Chest 1view DX Clinical Indication: - chest pain and dyspnea, CHF; Comparison: 03/31/2018 Technique: X-ray chest frontal projection FINDINGS: There is no consolidation, pleural effusion or pneumothorax. Linear atelectasis in the left midlung field. The heart is normal in size. The mediastinum and erin are unremarkable. The visualized bones and soft tissues are within normal limits. IMPRESSION: No chest radiographic evidence of acute cardiopulmonary disease. SL: [id number] 05/03/2018 - - Read by: Robyn Thomason MD Dictated Date/time: 05/03/18 21:51 Electronically Signed by: Robyn Thomason MD 05/03/18 21:52 FINAL REPORT [address] DX Chest 1view DX Clinical Indication: - chest pain Comparison: 03/26/2018 FINDINGS: AP chest radiograph was obtained. MEDIASTINUM: The cardiac silhouette is mildly prominent. The aorta is unremarkable. LUNGS: Lung volumes are maintained. There are no focal infiltrates or effusions. There are no pneumothoraces noted. There is scarring versus atelectasis in the left midlung. BONES: The visualized osseous structures are unremarkable. IMPRESSION: No acute infiltrates or effusions. SL: [id number] 03/31/2018 - - Read by: Antonio Palm MD Dictated Date/time: 04/01/18 00:06 Electronically Signed by: Antonio Palm MD 04/01/18 00:08 FINAL REPORT [facility] Chest CTA Chest CTA Patient Name: FABIO CUEVA : 1965; Age: 52 years y/o Male MR: [id number] Study: Chest CTA 03/29/2018 10:46 AM CDT Ordering Physician: Rolando Mata MD Clinical Indication: - persistent chest pain/ SOB Comparison: 01/06/18 TECHNIQUE: Sequential trans-axial images were obtained thru the chest and upper abdomen after administration of iodinated contrast. Coronal, sagittal and MIP reconstructions were obtained. 100 mL of Omnipaque intravenously were used for the exam. CT imaging performed at this location utilizes radiation dose optimization techniques which include one or more of the following: -Automated exposure control -Adjustment of the mA and/or kV according to patient size -Use of iterative reconstruction technique Dose: AMA=384.23 mGy-cm FINDINGS: LUNG PARENCHYMA AND PLEURA: The lungs are clear. There are no pleural effusions. There is no pneumothorax. AIRWAY: The central airway is demonstrates no acute pathology. MEDIASTINUM: No significant mediastinal lymphadenopathy. . HEART: There is no evidence of RV strain. The cardiac chambers are otherwise unremarkable. There is no pericardial effusion. VASCULAR STRUCTURES: There are no filling defects appreciated to suggest PE. The great vessels are unremarkable. The thoracic aorta demonstrates no aneurysm or dissection. The superior vena cava is unremarkable. OSSEOUS STRUCTURES: There are no definite significant osseous abnormalities seen. VISUALIZED UPPER ABDOMEN: Included portions of the upper abdomen demonstrate no acute pathology. 15mm left adrenal nodule noted, follow up recommended. 2.8cm left renal cyst noted. IMPRESSION: No PE appreciated. Left adrenal nodule, follow up recommended. Left renal cyst. SL: [id number] 03/29/2018 - - Read by: Lucrecia Coleman MD Dictated Date/time: 03/29/18 12:13 Electronically Signed by: Lucrecia Coleman MD 03/29/18 12:23 FINAL REPORT [facility] Chest 1view DX Chest 1view DX Study: Chest 1view DX 03/26/2018 6:49 PM CDT Ordering Physician: Gala Levy Clinical Indication: - SOB Comparison: January 31, 2018 FINDINGS: The lung volumes are low. There is mild platelike atelectasis or scar in the left midlung field, unchanged as compared to the previous study. There is no evidence for alveolar consolidation, pleural effusion, pulmonary edema or pneumothorax. The cardiomediastinal silhouette is within normal limits. No acute osseous abnormality is seen. Soft tissues are unremarkable. IMPRESSION: No acute cardiopulmonary disease. SL: [id number] 03/26/2018 - - Read by: Jackie Heller MD Dictated Date/time: 03/26/18 20:10 Electronically Signed by: Jackie Heller MD 03/26/18 20:10 FINAL REPORT [facility] ELECTROLYTES AGAP 13.2 meq/L 10.0 - 20.0 02/03/2018 [facility] ELECTROLYTES eGFR 89 mL/min/1.73m2 02/03/2018 Result Comment: The eGFR is calculated using the CKD-EPI formula. In most young, healthy individuals the eGFR will be >90 mL/min/1.73m2. The eGFR declines with age. An eGFR of 60-89 may be normal in some populations, particularly the elderly, for whom the CKD-EPI formula has not been extensively validated. Use of the eGFR is not recommended in the following populations: Individuals with unstable creatinine concentrations, including patients and those with serious co-morbid conditions. Patients with extremes in muscle mass or diet. The data above are obtained from the National Kidney Disease Education Program (NKDEP) which additionally recommends that when the eGFR is used in patients with extremes of body mass index for purposes of drug dosing, the eGFR should be multiplied by the estimated BMI. [facility] ELECTROLYTES Sodium Lvl 137 meq/L 135 - 145 02/03/2018 [facility] ELECTROLYTES Creatinine Lvl 1.10 mg/dL 0.50 - 1.40 02/03/2018 [facility] ELECTROLYTES Glucose Lvl 160 mg/dL 70 - 99 02/03/2018 [facility] ELECTROLYTES BUN 26 mg/dL 7 - 22 02/03/2018 [facility] ELECTROLYTES Calcium Lvl 9.2 mg/dL 8.5 - 10.5 02/03/2018 [facility] ELECTROLYTES CO2 35 meq/L 24 - 32 02/03/2018 [facility] ELECTROLYTES Chloride Lvl 93 meq/L 95 - 109 02/03/2018 [facility] ELECTROLYTES Potassium Lvl 4.2 meq/L 3.5 - 5.1 02/03/2018 [facility] SPECIAL CHEMISTRY Hgb A1C 8.5 % <=5.6 % [facility]03[facility] Magnesium Lvl 2.2 mg/dL 1.8 - 2.4 02/02[facility] Albumin Lvl 3.3 g/dL 3.5 - 5.0 02/02/2018 [facility] CHEM PANEL ALT 26 unit/L 0 - 65 02/02/2018 [facility] CHEM PANEL Potassium Lvl 4.5 meq/L 3.5 - 5.1 02/02/2018 [facility] CHEM PANEL Bili Total 0.4 mg/dL 0.2 - 1.3 02/02/2018 [facility] CHEM PANEL Alk Phos 69 unit/L 39 - 136 02/02/2018 [facility] CHEM PANEL AST 16 unit/L 0 - 37 02/02/2018 [facility] CHEM PANEL CO2 34 meq/L 24 - 32 02/02/2018 [facility] CHEM PANEL Chloride Lvl 95 meq/L 95 - 109 02/02/2018 [facility] CHEM PANEL eGFR 75 mL/min/1.73m2 02/02/2018 Result Comment: The eGFR is calculated using the CKD-EPI formula. In most young, healthy individuals the eGFR will be >90 mL/min/1.73m2. The eGFR declines with age. An eGFR of 60-89 may be normal in some populations, particularly the elderly, for whom the CKD-EPI formula has not been extensively validated. Use of the eGFR is not recommended in the following populations: Individuals with unstable creatinine concentrations, including patients and those with serious co-morbid conditions. Patients with extremes in muscle mass or diet. The data above are obtained from the National Kidney Disease Education Program (NKDEP) which additionally recommends that when the eGFR is used in patients with extremes of body mass index for purposes of drug dosing, the eGFR should be multiplied by the estimated BMI. [facility] Total Protein 7.2 g/dL 6.4 - 8.4 02/02/2018 [facility] CHEM PANEL Calcium Lvl 9.2 mg/dL 8.5 - 10.5 02/02/2018 [facility] CHEM PANEL BUN 32 mg/dL 7 - 22 02/02/2018 [facility] CHEM PANEL Sodium Lvl 137 meq/L 135 - 145 02/02/2018 [facility] CHEM PANEL Creatinine Lvl 1.27 mg/dL 0.50 - 1.40 02/02/2018 [facility] CHEM PANEL Glucose Lvl 173 mg/dL 70 - 99 02/02/2018 [facility] CHEM PANEL AGAP 12.5 meq/L 10.0 - 20.0 02/02/2018 [facility] CHEM PANEL A/G Ratio 0.8 0.7 - 1.6 02/02/2018 [facility] CHEM PANEL Globulin 3.9 g/dL 2.7 - 4.2 02/02/2018 [facility] CHEM PANEL B/C Ratio 25 6 - 25 02/02/2018 [facility] HEMATOLOGY WBC 11.7 K/CMM 3.7 - 10.4 02/02/2018 [facility] HEMATOLOGY Platelet 258 K/CMM 133 - 450 02/02/2018 [facility] HEMATOLOGY RBC 4.71 M/CMM 4.70 - 6.10 02/02/2018 [facility] HEMATOLOGY MPV 7.6 fL 7.4 - 10.4 02/02/2018 [facility] HEMATOLOGY Hgb 14.1 g/dL 14.0 - 18.0 02/02/2018 [facility] HEMATOLOGY MCH 29.9 pg 27.0 - 31.0 02/02/2018 [facility] HEMATOLOGY MCV 93.9 fL 80.0 - 94.0 02/02/2018 [facility] HEMATOLOGY Hct 44.3 % 42.0 - 54.0 02/02/2018 [facility] HEMATOLOGY RDW 14.1 % 11.5 - 14.5 02/02/2018 [facility] HEMATOLOGY MCHC 31.9 g/dL 32.0 - 36.0 02/02/2018 [facility] HEMATOLOGY Eosinophils 0.1 % 0.0 - 4.0 02/02/2018 [facility] HEMATOLOGY Monocytes 8.6 % 2.0 - 12.0 02/02/2018 [facility] HEMATOLOGY Lymphocytes 20.8 % 20.0 - 40.0 02/02/2018 [facility] HEMATOLOGY Segs 70.2 % 45.0 - 75.0 02/02/2018 [facility] HEMATOLOGY Basophils 0.3 % 0.0 - 1.0 02/02/2018 [facility] HEMATOLOGY Segs-Bands # 8.2 K/CMM 1.5 - 8.1 02/02/2018 [facility] HEMATOLOGY Lymphocytes # 2.4 K/CMM 1.0 - 5.5 02/02/2018 [facility] HEMATOLOGY Monocytes # 1.0 K/CMM 0.0 - 0.8 02/02/2018 [facility] CARDIAC ENZYMES CK MB 5.4 ng/mL 0.5 - 3.6 02/01/2018 [facility] CARDIAC ENZYMES CK MB Index 1.3 0.0 - 2.5 02/01/2018 [facility] CARDIAC ENZYMES Troponin-I 0.05 ng/mL 0.00 - 0.40 02/01/2018 [facility] CARDIAC ENZYMES Total CK 422 unit/L 12 - 191 02/01/2018 [facility] BACTERIAL - SEROLOGY MRSA by PCR Negative (01/31/18 11:58 PM) 02/01/2018 [facility] DRUG SCREEN UDS Note See Note (01/31/18 11:58 PM) 02/01/2018 [facility] DRUG SCREEN U Phencyc Scr Negative *NA* (01/31/18 11:58 PM) Negative 02/01/2018 [facility] DRUG SCREEN U Opiate Scr Positive *ABN* (01/31/18 11:58 PM) Negative 02/01/2018 [facility] DRUG SCREEN U Elizabeth Scr Negative *NA* (01/31/18 11:58 PM) Negative 02/01/2018 [facility] DRUG SCREEN U Amph Scr Negative *NA* (01/31/18 11:58 PM) Negative 02/01/2018 [facility] DRUG SCREEN U Benzodia Scr Negative *NA* (01/31/18 11:58 PM) Negative 02/01/2018 [facility] DRUG SCREEN U Cannab Scr Negative *NA* (01/31/18 11:58 PM) Negative 02/01/2018 [facility] DRUG SCREEN U Cocaine Scr Negative *NA* (01/31/18 11:58 PM) Negative 02/01/2018 [facility] URINE AND STOOL UA Glucose null 02/01/2018 [facility] URINE AND STOOL UA Color STRAW 02/01/2018 [facility] [place] URINE AND STOOL UA Urobilinogen <=1.0 mg/dL 0.1 - 1.0 02/01/2018 [place] URINE AND STOOL UA Protein Negative mg/dL Negative mg/dL 02/01/2018 [place] URINE AND STOOL UA Ketones Negative mg/dL Negative mg/dL 02/01/2018 [place] URINE AND STOOL UA pH 6.0 5.0 - 8.0 02/01/2018 [place] URINE AND STOOL UA Bili Negative *NA* (01/31/18 11:58 PM) Negative 02/01/2018 [place] URINE AND STOOL UA Leuk Est Negative (01/31/18 11:58 PM) Negative 02/01/2018 [place] URINE AND STOOL UA Blood Small *ABN* (01/31/18 11:58 PM) Negative 02/01/2018 [place] URINE AND STOOL UA Nitrite Negative (01/31/18 11:58 PM) Negative 02/01/2018 [place] URINE AND STOOL UA WBC 1 /HPF 0 - 5 02/01/2018 [place] URINE AND STOOL UA RBC null 0 - 2 02/01/2018 [place] URINE AND STOOL UA Sq Epi None Seen 02/01/2018 [facility] URINE AND STOOL UA Turbidity Clear (01/31/18 11:58 PM) Clear 02/01/2018 [facility] URINE AND STOOL UA Spec Grav 1.003 <=1.030 02/01/2018 [facility] CARDIAC ENZYMES Troponin-I 0.06 ng/mL 0.00 - 0.40 02/01/2018 [facility] CARDIAC ENZYMES Total CK 433 unit/L 12 - 191 02/01/2018 [facility] CARDIAC ENZYMES CK MB Index 1.4 0.0 - 2.5 02/01/2018 [facility] CARDIAC ENZYMES CK MB 5.9 ng/mL 0.5 - 3.6 02/01/2018 [facility] CARDIAC ENZYMES Total CK 534 unit/L 12 - 191 01/31/2018 [facility] CARDIAC ENZYMES Troponin-I 0.11 ng/mL 0.00 - 0.40 01/31/2018 [facility] CARDIAC ENZYMES CK MB Index 1.3 0.0 - 2.5 01/31/2018 [facility] CARDIAC ENZYMES proBNP 1159 pg/mL 0 - 125 01/31/2018 [facility] CARDIAC ENZYMES CK MB 6.9 ng/mL 0.5 - 3.6 01/31/2018 [place] CHEM PANEL Lipase Lvl 146 unit/L 73 - 393 01/31/2018 [place] CHEM PANEL eGFR 88 mL/min/1.73m2 01/31/2018 Result Comment: The eGFR is calculated using the CKD-EPI formula. In most young, healthy individuals the eGFR will be >90 mL/min/1.73m2. The eGFR declines with age. An eGFR of 60-89 may be normal in some populations, particularly the elderly, for whom the CKD-EPI formula has not been extensively validated. Use of the eGFR is not recommended in the following populations: Individuals with unstable creatinine concentrations, including patients and those with serious co-morbid conditions. Patients with extremes in muscle mass or diet. The data above are obtained from the National Kidney Disease Education Program (NKDEP) which additionally recommends that when the eGFR is used in patients with extremes of body mass index for purposes of drug dosing, the eGFR should be multiplied by the estimated BMI. [place] CHEM PANEL A/G Ratio 0.8 0.7 - 1.6 01/31/2018 [place] CHEM PANEL Globulin 4.5 g/dL 2.7 - 4.2 01/31/2018 [place] CHEM PANEL B/C Ratio 18 6 - 25 01/31/2018 [place] CHEM PANEL AGAP 14.6 meq/L 10.0 - 20.0 01/31/2018 [place] CHEM PANEL Alk Phos 80 unit/L 39 - 136 01/31/2018 [place] CHEM PANEL Bili Total 0.7 mg/dL 0.2 - 1.3 01/31/2018 [place] CHEM PANEL AST 35 unit/L 0 - 37 01/31/2018 [place] CHEM PANEL BUN 20 mg/dL 7 - 22 01/31/2018 [place] CHEM PANEL Glucose Lvl 133 mg/dL 70 - 99 01/31/2018 [place] CHEM PANEL ALT 25 unit/L 0 - 65 01/31/2018 [place] CHEM PANEL Chloride Lvl 91 meq/L 95 - 109 01/31/2018 [place] CHEM PANEL Total Protein 8.3 g/dL 6.4 - 8.4 01/31/2018 [place] CHEM PANEL CO2 27 meq/L 24 - 32 01/31/2018 [place] CHEM PANEL Calcium Lvl 8.8 mg/dL 8.5 - 10.5 01/31/2018 [facility] CHEM PANEL Albumin Lvl 3.8 g/dL 3.5 - 5.0 01/31/2018 [facility] CHEM PANEL Creatinine Lvl 1.11 mg/dL 0.50 - 1.40 01/31/2018 [facility] CHEM PANEL Sodium Lvl 128 meq/L 135 - 145 01/31/2018 [facility] CHEM PANEL Potassium Lvl 4.6 meq/L 3.5 - 5.1 01/31/2018 [facility] HEMATOLOGY Monocytes 7.2 % 2.0 - 12.0 01/31/2018 [facility] HEMATOLOGY Segs 57.4 % 45.0 - 75.0 01/31/2018 [facility] HEMATOLOGY Lymphocytes 33.8 % 20.0 - 40.0 01/31/2018 [facility] HEMATOLOGY Lymphocytes # 2.6 K/CMM 1.0 - 5.5 01/31/2018 [facility] HEMATOLOGY Eosinophils 1.1 % 0.0 - 4.0 01/31/2018 [facility] HEMATOLOGY Segs-Bands # 4.5 K/CMM 1.5 - 8.1 01/31/2018 [facility] HEMATOLOGY Basophils 0.5 % 0.0 - 1.0 01/31/2018 [facility] HEMATOLOGY Eosinophils # 0.1 K/CMM 0.0 - 0.5 01/31/2018 [facility] HEMATOLOGY Monocytes # 0.6 K/CMM 0.0 - 0.8 01/31/2018 [facility] HEMATOLOGY Hgb 15.4 g/dL 14.0 - 18.0 01/31/2018 [facility] HEMATOLOGY Hct 45.4 % 42.0 - 54.0 01/31/2018 [facility] HEMATOLOGY RBC 5.03 M/CMM 4.70 - 6.10 01/31/2018 [facility] HEMATOLOGY WBC 7.8 K/CMM 3.7 - 10.4 01/31/2018 [facility] HEMATOLOGY MCV 90.3 fL 80.0 - 94.0 01/31/2018 [facility] MCH 30.6 pg 27.0 - 31.0 01/31/2018 [facility] HEMATOLOGY Platelet 269 K/CMM 133 - 450 01/31/2018 [facility] HEMATOLOGY MPV 7.4 fL 7.4 - 10.4 01/31/2018 [facility] HEMATOLOGY RDW 13.8 % 11.5 - 14.5 01/31/2018 [facility] HEMATOLOGY MCHC 33.9 g/dL 32.0 - 36.0 01/31/2018 [facility] CHEM PANEL eGFR 87 mL/min/1.73m2 01/09/2018 Result Comment: The eGFR is calculated using the CKD-EPI formula. In most young, healthy individuals the eGFR will be >90 mL/min/1.73m2. The eGFR declines with age. An eGFR of 60-89 may be normal in some populations, particularly the elderly, for whom the CKD-EPI formula has not been extensively validated. Use of the eGFR is not recommended in the following populations: Individuals with unstable creatinine concentrations, including patients and those with serious co-morbid conditions. Patients with extremes in muscle mass or diet. The data above are obtained from the National Kidney Disease Education Program (NKDEP) which additionally recommends that when the eGFR is used in patients with extremes of body mass index for purposes of drug dosing, the eGFR should be multiplied by the estimated BMI. [facility] CHEM PANEL BUN 24 mg/dL 7 - 22 01/09/2018 [facility] CHEM PANEL Creatinine Lvl 1.13 mg/dL 0.50 - 1.40 01/09/2018 [facility] CHEM PANEL Potassium Lvl 4.0 meq/L 3.5 - 5.1 01/09/2018 [facility] CHEM PANEL Sodium Lvl 139 meq/L 135 - 145 01/09/2018 [facility] CHEM PANEL Chloride Lvl 99 meq/L 95 - 109 01/09/2018 [facility] CHEM PANEL CO2 33 meq/L 24 - 32 01/09/2018 [facility] CHEM PANEL Calcium Lvl 9.0 mg/dL 8.5 - 10.5 01/09/2018 [facility] CHEM PANEL Glucose Lvl 162 mg/dL 70 - 99 01/09/2018 [facility] CHEM PANEL AGAP 11.0 meq/L 10.0 - 20.0 01/09/2018 [facility] CHEM PANEL Magnesium Lvl 2.1 mg/dL 1.8 - 2.4 01/09/2018 [facility] HEMATOLOGY Hgb 15.0 g/dL 14.0 - 18.0 01/09/2018 [facility] HEMATOLOGY RBC 4.88 M/CMM 4.70 - 6.10 01/09/2018 [facility] HEMATOLOGY WBC 9.0 K/CMM 3.7 - 10.4 01/09/2018 [facility] Hct 44.1 % 42.0 - 54.0 01/09/2018 [facility] MCV 90.4 fL 80.0 - 94.0 01/09/2018 [facility] Platelet 254 K/CMM 133 - 450 01/09/2018 [facility] RDW 14.2 % 11.5 - 14.5 01/09/2018 [facility] MCH 30.8 pg 27.0 - 31.0 01/09/2018 [facility] MCHC 34.1 g/dL 32.0 - 36.0 01/09/2018 [facility] MPV 7.5 fL 7.4 - 10.4 01/09/2018 [facility] Segs 50.9 % 45.0 - 75.0 01/09/2018 [facility] Lymphocytes 39.2 % 20.0 - 40.0 01/09/2018 [facility] Monocytes 9.0 % 2.0 - 12.0 01/09/2018 [facility] Segs-Bands # 4.6 K/CMM 1.5 - 8.1 01/09/2018 [facility] Lymphocytes # 3.5 K/CMM 1.0 - 5.5 01/09/2018 [facility] Eosinophils 0.4 % 0.0 - 4.0 01/09/2018 [facility] Basophils 0.5 % 0.0 - 1.0 01/09/2018 [facility] Monocytes # 0.8 K/CMM 0.0 - 0.8 01/09/2018 [facility] CHEM PANEL Magnesium Lvl 2.1 mg/dL 1.8 - 2.4 01/08/2018 [facility] CHEM PANEL eGFR 87 mL/min/1.73m2 01/08/2018 Result Comment: The eGFR is calculated using the CKD-EPI formula. In most young, healthy individuals the eGFR will be >90 mL/min/1.73m2. The eGFR declines with age. An eGFR of 60-89 may be normal in some populations, particularly the elderly, for whom the CKD-EPI formula has not been extensively validated. Use of the eGFR is not recommended in the following populations: Individuals with unstable creatinine concentrations, including patients and those with serious co-morbid conditions. Patients with extremes in muscle mass or diet. The data above are obtained from the National Kidney Disease Education Program (NKDEP) which additionally recommends that when the eGFR is used in patients with extremes of body mass index for purposes of drug dosing, the eGFR should be multiplied by the estimated BMI. [facility] CHEM PANEL Sodium Lvl 138 meq/L 135 - 145 01/08/2018 [facility] CHEM PANEL CO2 35 meq/L 24 - 32 01/08/2018 [facility] CHEM PANEL Potassium Lvl 3.9 meq/L 3.5 - 5.1 01/08/2018 [facility] CHEM PANEL Creatinine Lvl 1.13 mg/dL 0.50 - 1.40 01/08/2018 [facility] CHEM PANEL Chloride Lvl 98 meq/L 95 - 109 01/08/2018 [facility] CHEM PANEL BUN 27 mg/dL 7 - 22 01/08/2018 [facility] CHEM PANEL Glucose Lvl 187 mg/dL 70 - 99 01/08/2018 [facility] CHEM PANEL Calcium Lvl 9.1 mg/dL 8.5 - 10.5 01/08/2018 [facility] CHEM PANEL AGAP 8.9 meq/L 10.0 - 20.0 01/08/2018 [facility] HEMATOLOGY MPV 7.3 fL 7.4 - 10.4 01/08/2018 [facility] HEMATOLOGY RBC 4.64 M/CMM 4.70 - 6.10 01/08/2018 [facility] HEMATOLOGY Platelet 261 K/CMM 133 - 450 01/08/2018 [facility] HEMATOLOGY Hgb 14.2 g/dL 14.0 - 18.0 01/08/2018 [facility] HEMATOLOGY Hct 42.1 % 42.0 - 54.0 01/08/2018 [facility] HEMATOLOGY MCHC 33.7 g/dL 32.0 - 36.0 01/08/2018 [facility] HEMATOLOGY RDW 14.0 % 11.5 - 14.5 01/08/2018 [facility] HEMATOLOGY MCV 90.9 fL 80.0 - 94.0 01/08/2018 [facility] MCH 30.6 pg 27.0 - 31.0 01/08/2018 [facility] WBC 8.8 K/CMM 3.7 - 10.4 01/08/2018 [facility] HEMATOLOGY Monocytes # 0.8 K/CMM 0.0 - 0.8 01/08/2018 [facility] HEMATOLOGY Segs 59.3 % 45.0 - 75.0 01/08/2018 [facility] HEMATOLOGY Lymphocytes 31.1 % 20.0 - 40.0 01/08/2018 [facility] HEMATOLOGY Monocytes 8.9 % 2.0 - 12.0 01/08/2018 [facility] HEMATOLOGY Lymphocytes # 2.7 K/CMM 1.0 - 5.5 01/08/2018 [facility] HEMATOLOGY Segs-Bands # 5.2 K/CMM 1.5 - 8.1 01/08/2018 [facility] HEMATOLOGY Eosinophils 0.3 % 0.0 - 4.0 01/08/2018 [facility] HEMATOLOGY Basophils 0.4 % 0.0 - 1.0 01/08/2018 [facility] Knee 1-2 Views unilateral DX Knee 1-2 Views unilateral DX Patient Name: FABIO CUEVA : 1965; Age: 52 years y/o Male MR: [id number] Study: 2 view right knee 01/07/2018 6:28 PM CDT Ordering Physician: Jonathan Warren DO Clinical Indication: - right knee pain s/p fall; Comparison: 12/01/2017 right knee radiograph Discussion: Swelling of the prepatellar soft tissues. No fracture or effusion. Marginal osteophytes and joint space narrowing involve all 3 compartments of the knee. The narrowing is most pronounced in the lateral compartment. Calcified and ossified loose bodies are scattered in the joint and measure up to 1.6 cm in diameter. Traction spurs arise from the superior and inferior patellar poles. No other significant findings. IMPRESSION: 1. No fracture identified. 2. Tricompartmental osteoarthritis with associated loose bodies. SL: [id number] 01/07/2018 - - Read by: Nahum Noble MD Dictated Date/time: 01/08/18 07:36 Electronically Signed by: Nahum Noble MD 01/08/18 07:40 FINAL REPORT [facility] eGFR 81 mL/min/1.73m2 01/07/2018 Result Comment: The eGFR is calculated using the CKD-EPI formula. In most young, healthy individuals the eGFR will be >90 mL/min/1.73m2. The eGFR declines with age. An eGFR of 60-89 may be normal in some populations, particularly the elderly, for whom the CKD-EPI formula has not been extensively validated. Use of the eGFR is not recommended in the following populations: Individuals with unstable creatinine concentrations, including patients and those with serious co-morbid conditions. Patients with extremes in muscle mass or diet. The data above are obtained from the National Kidney Disease Education Program (NKDEP) which additionally recommends that when the eGFR is used in patients with extremes of body mass index for purposes of drug dosing, the eGFR should be multiplied by the estimated BMI. [facility] CHEM PANEL Chloride Lvl 99 meq/L 95 - 109 [facility] Sodium Lvl 137 meq/L 135 - 145 01/07/2018 [facility] CHEM PANEL Potassium Lvl 4.4 meq/L 3.5 - 5.1 01/07/2018 [facility] CHEM PANEL Calcium Lvl 9.4 mg/dL 8.5 - 10.5 01/07/2018 [facility] CHEM PANEL CO2 31 meq/L 24 - 32 01/07/2018 [facility] CHEM PANEL Glucose Lvl 308 mg/dL 70 - 99 01/07/2018 [facility] CHEM PANEL BUN 21 mg/dL 7 - 22 01/07/2018 [facility] CHEM PANEL Creatinine Lvl 1.19 mg/dL 0.50 - 1.40 01/07/2018 [facility] CHEM PANEL AGAP 11.4 meq/L 10.0 - 20.0 01/07/2018 [facility] HEMATOLOGY Monocytes # 0.4 K/CMM 0.0 - 0.8 01/07/2018 [facility] HEMATOLOGY Lymphocytes # 1.6 K/CMM 1.0 - 5.5 01/07/2018 [facility] HEMATOLOGY Segs-Bands # 8.1 K/CMM 1.5 - 8.1 01/07/2018 [facility] HEMATOLOGY Basophils 0.3 % 0.0 - 1.0 01/07/2018 [facility] HEMATOLOGY Segs 80.2 % 45.0 - 75.0 01/07/2018 [facility] HEMATOLOGY Lymphocytes 16.0 % 20.0 - 40.0 01/07/2018 [facility] HEMATOLOGY Monocytes 3.5 % 2.0 - 12.0 01/07/2018 [facility] HEMATOLOGY Platelet 268 K/CMM 133 - 450 01/07/2018 [facility] HEMATOLOGY MPV 7.7 fL 7.4 - 10.4 01/07/2018 [facility] HEMATOLOGY WBC 10.1 K/CMM 3.7 - 10.4 01/07/2018 [facility] HEMATOLOGY RBC 4.78 M/CMM 4.70 - 6.10 01/07/2018 [facility] HEMATOLOGY MCV 91.2 fL 80.0 - 94.0 01/07/2018 [facility] HEMATOLOGY Hgb 14.7 g/dL 14.0 - 18.0 01/07/2018 [facility] HEMATOLOGY Hct 43.6 % 42.0 - 54.0 01/07/2018 [facility] HEMATOLOGY MCHC 33.7 g/dL 32.0 - 36.0 01/07/2018 [facility] HEMATOLOGY MCH 30.7 pg 27.0 - 31.0 01/07/2018 [facility] HEMATOLOGY RDW 14.0 % 11.5 - 14.5 01/07/2018 [facility] CARDIAC ENZYMES Troponin-I 0.05 ng/mL 0.00 - 0.40 01/06/2018 [facility] CARDIAC ENZYMES Total CK 172 unit/L 12 - 01/06/2018 [facility] CARDIAC ENZYMES CK MB Index 2.4 0.0 - 2.5 01/06/2018 [facility] CARDIAC ENZYMES CK MB 4.1 ng/mL 0.5 - 3.6 01/06/2018 [facility] CHEM PANEL Magnesium Lvl 1.9 mg/dL 1.8 - 2.4 01/06/2018 [facility] CHEM PANEL Phosphorus 4.5 mg/dL 2.5 - 4.5 01/06/2018 [facility] CARDIAC ENZYMES CK MB Index 2.3 0.0 - 2.5 01/06/2018 [facility] CARDIAC ENZYMES CK MB 4.7 ng/mL 0.5 - 3.6 01/06/2018 [facility] CARDIAC ENZYMES Troponin-I 0.06 ng/mL 0.00 - 0.40 01/06/2018 [facility] CARDIAC ENZYMES Total CK 205 unit/L 12 - 01/06/2018 [facility] BACTERIAL - SEROLOGY MRSA by PCR Negative (01/06/18 6:47 AM) 01/06/2018 [facility] CARDIAC ENZYMES CK MB Index 2.1 0.0 - 2.5 01/06/2018 [facility] CARDIAC ENZYMES proBNP 219 pg/mL 0 - 125 01/06/2018 [facility] CARDIAC ENZYMES Total CK 249 unit/L 12 - 01/06/2018 [facility] CARDIAC ENZYMES Troponin-I 0.08 ng/mL 0.00 - 0.40 01/06/2018 [facility] CARDIAC ENZYMES CK MB 5.2 ng/mL 0.5 - 3.6 01/06/2018 [facility] CHEM PANEL B/C Ratio 15 6 - 25 01/06/2018 [facility] CHEM PANEL Globulin 4.6 g/dL 2.7 - 4.2 01/06/2018 [facility] CHEM PANEL A/G Ratio 0.8 0.7 - 1.6 01/06/2018 [facility] CHEM PANEL Bili Total 0.2 mg/dL 0.2 - 1.3 01/06/2018 [facility] CHEM PANEL AST 21 unit/L 0 - 37 01/06/2018 [facility] CHEM PANEL Alk Phos 81 unit/L 39 - 136 01/06/2018 [facility] CHEM PANEL ALT 30 unit/L 0 - 65 01/06/2018 [facility] CHEM PANEL Total Protein 8.4 g/dL 6.4 - 8.4 01/06/2018 [facility] CHEM PANEL Albumin Lvl 3.8 g/dL 3.5 - 5.0 01/06/2018 [facility] HEMATOLOGY Eosinophils 1.4 % 0.0 - 4.0 01/06/2018 [facility] HEMATOLOGY Eosinophils # 0.1 K/CMM 0.0 - 0.5 01/06/2018 [facility] HEMATOLOGY Basophils # 0.1 K/CMM 0.0 - 0.2 01/06/2018 [facility] HEMATOLOGY Plt Morph Normal (01/06/18 3:30 AM) 01/06/2018 [facility] HEMATOLOGY RBC Morph Normal (01/06/18 3:30 AM) 01/06/2018 [facility] HEMATOLOGY PTT 28.2 s 22.9 - 35.8 01/06/2018 [facility] HEMATOLOGY PT 12.4 s 12.0 - 14.7 01/06/2018 [facility] HEMATOLOGY INR 0.92 0.85 - 1.17 01/06/2018 [facility] Chest Pulmonary Embolism CTA Chest Pulmonary Embolism CTA Clinical Indication: - cp, shortness of breath, recent admission Comparison: 11/05/2017 TECHNIQUE: CTA of the thoracic aorta was performed with 200 ml Visipaque intravenous contrast. Helical imaging performed apices to the lung bases. Multiplanar and 3-D maximum intensity projection angiographic reconstructions are reviewed. CT Radiation Dose DLP: 1931.31 mGy-cm FINDINGS: THORACIC AORTA: The thoracic aorta is normal in caliber. There is no evidence of aneurysmal dilatation or aortic dissection. There is no significant atherosclerotic calcification of the aorta. The right brachiocephalic, left common carotid, and left subclavian arteries are unremarkable. PULMONARY ARTERIES: Normal enhancement without intraluminal filling defect. MEDIASTINUM: There are no mediastinal masses or lymphadenopathy noted. LUNGS: There are no pulmonary nodules, pneumothoraces, infiltrates, or effusions. There are no pleural abnormalities. There is atelectasis in the left lingula. UPPER ABDOMEN: The visualized abdomen is unremarkable. MUSCULOSKELETAL: The visualized osseous structures are intact. IMPRESSION: 1. Unremarkable CTA of the chest. SL: [id number] 01/06/2018 - - Read by: Antonio Palm MD Dictated Date/time: 01/06/18 04:48 Electronically Signed by: Antonio Palm MD 01/06/18 04:52 FINAL REPORT [facility] Chest 1view DX Chest 1view DX Clinical Indication: - Shortness of breath Comparison: 11/30/2017 FINDINGS: AP chest radiograph was obtained. MEDIASTINUM: The cardiac silhouette is normal in size. The aorta is unremarkable. LUNGS: Lung volumes are maintained. There are no focal infiltrates or effusions. There are no pneumothoraces noted. BONES: The visualized osseous structures are unremarkable. IMPRESSION: No acute infiltrates or effusions. SL: [id number] 01/06/2018 - - Read by: Antonio Palm MD Dictated Date/time: 01/06/18 03:49 Electronically Signed by: Antonio Palm MD 01/06/18 03:50 FINAL REPORT [facility] CHEM PANEL eGFR 86 mL/min/1.73m2 12/04/2017 Result Comment: The eGFR is calculated using the CKD-EPI formula. In most young, healthy individuals the eGFR will be >90 mL/min/1.73m2. The eGFR declines with age. An eGFR of 60-89 may be normal in some populations, particularly the elderly, for whom the CKD-EPI formula has not been extensively validated. Use of the eGFR is not recommended in the following populations: Individuals with unstable creatinine concentrations, including patients and those with serious co-morbid conditions. Patients with extremes in muscle mass or diet. The data above are obtained from the National Kidney Disease Education Program (NKDEP) which additionally recommends that when the eGFR is used in patients with extremes of body mass index for purposes of drug dosing, the eGFR should be multiplied by the estimated BMI. [place] CHEM PANEL AGAP 8.7 meq/L 10.0 - 20.0 12/04/2017 [place] CHEM PANEL CO2 34 meq/L 24 - 32 12/04/2017 [place] CHEM PANEL Calcium Lvl 8.8 mg/dL 8.5 - 10.5 12/04/2017 [place] CHEM PANEL Chloride Lvl 99 meq/L 95 - 109 12/04/2017 [place] CHEM PANEL Potassium Lvl 3.7 meq/L 3.5 - 5.1 12/04/2017 [place] CHEM PANEL Creatinine Lvl 1.14 mg/dL 0.50 - 1.40 12/04/2017 [place] CHEM PANEL BUN 25 mg/dL 7 - 12/04/2017 [place] CHEM PANEL Glucose Lvl 153 mg/dL 70 - 99 12/04/2017 [place] CHEM PANEL Sodium Lvl 138 meq/L 135 - 145 12/04/2017 [place] CHEM PANEL Magnesium Lvl 2.1 mg/dL 1.8 - 2.4 12/04/2017 [place] CHEM PANEL Magnesium Lvl 2.1 mg/dL 1.8 - 2.4 12/03/2017 [place] CHEM PANEL Calcium Lvl 8.8 mg/dL 8.5 - 10.5 12/03/2017 [place] CHEM PANEL AGAP 11.0 meq/L 10.0 - 20.0 12/03/2017 [place] CHEM PANEL CO2 33 meq/L 24 - 32 12/03/2017 [place] CHEM PANEL Potassium Lvl 4.0 meq/L 3.5 - 5.1 12/03/2017 [place] CHEM PANEL Chloride Lvl 99 meq/L 95 - 109 12/03/2017 [place] CHEM PANEL Sodium Lvl 139 meq/L 135 - 145 12/03/2017 [place] CHEM PANEL Glucose Lvl 153 mg/dL 70 - 99 12/03/2017 [place] CHEM PANEL BUN 28 mg/dL 7 - 12/03/2017 [place] CHEM PANEL Creatinine Lvl 1.30 mg/dL 0.50 - 1.40 12/03/2017 [place] CHEM PANEL eGFR 73 mL/min/1.73m2 12/03/2017 Result Comment: The eGFR is calculated using the CKD-EPI formula. In most young, healthy individuals the eGFR will be >90 mL/min/1.73m2. The eGFR declines with age. An eGFR of 60-89 may be normal in some populations, particularly the elderly, for whom the CKD-EPI formula has not been extensively validated. Use of the eGFR is not recommended in the following populations: Individuals with unstable creatinine concentrations, including patients and those with serious co-morbid conditions. Patients with extremes in muscle mass or diet. The data above are obtained from the National Kidney Disease Education Program (NKDEP) which additionally recommends that when the eGFR is used in patients with extremes of body mass index for purposes of drug dosing, the eGFR should be multiplied by the estimated BMI. [facility] CARDIAC ENZYMES BNP 28 pg/mL <=100 pg[facility]mL [facility] Magnesium Lvl 2.2 mg/dL 1.8 - 2.4 12/02/2017 [facility] CHEM PANEL eGFR 81 mL/min/1.73m2 12/02/2017 Result Comment: The eGFR is calculated using the CKD-EPI formula. In most young, healthy individuals the eGFR will be >90 mL/min/1.73m2. The eGFR declines with age. An eGFR of 60-89 may be normal in some populations, particularly the elderly, for whom the CKD-EPI formula has not been extensively validated. Use of the eGFR is not recommended in the following populations: Individuals with unstable creatinine concentrations, including patients and those with serious co-morbid conditions. Patients with extremes in muscle mass or diet. The data above are obtained from the National Kidney Disease Education Program (NKDEP) which additionally recommends that when the eGFR is used in patients with extremes of body mass index for purposes of drug dosing, the eGFR should be multiplied by the estimated BMI. [place] CHEM PANEL Sodium Lvl 139 meq/L 135 - 145 [facility]02[facility] Chloride Lvl 98 meq/L 95 - 109 [facility]/02[facility] Potassium Lvl 3.9 meq/L 3.5 - 5.1 12/02[facility] Creatinine Lvl 1.19 mg/dL 0.50 - 1.40 12/02[facility] BUN 23 mg/dL 7 - 22 12/02/2017 [facility] CHEM PANEL AGAP 8.9 meq/L 10.0 - 20.0 12/02/2017 [facility] CHEM PANEL Calcium Lvl 9.0 mg/dL 8.5 - 10.5 12/02/2017 [facility] CHEM PANEL CO2 36 meq/L 24 - 32 12/02/2017 [facility] CHEM PANEL Glucose Lvl 167 mg/dL 70 - 99 12/02/2017 [facility] Abdomen AP DX Abdomen AP DX Patient Name: FABIO CUEVA : 1965; Age: 52 years y/o Male MR: [id number] * ABDOMEN, 1 view HISTORY: Acute generalized abdominal pain. COMPARISON: None TECHNIQUE: A supine radiograph of the abdomen was obtained. FINDINGS: The soft tissue outlines and bowel gas pattern are unremarkable. There is no evidence of obstruction or ileus. There are no unusual intra-abdominal calcifications. There are mild degenerative changes involving the lumbar spine and moderate hypertrophic spondylosis involving the visualized lower thoracic spine. The regional skeleton is otherwise unremarkable. IMPRESSION: 1. Benign appearance the abdomen. SL: [id number] 12/01/2017 - - Read by: Jayme Roberson MD Dictated Date/time: 12/01/17 17:33 Electronically Signed by: Jayme Roberson MD 12/01/17 17:35 FINAL REPORT [facility] CARDIAC ENZYMES CK MB Index 2.1 0.0 - 2.5 12/01/2017 [facility] CARDIAC ENZYMES CK MB 3.8 ng/mL 0.5 - 3.6 12/01/2017 [facility] CARDIAC ENZYMES Troponin-I 0.03 ng/mL 0.00 - 0.40 12/01/2017 [facility] CARDIAC ENZYMES Total CK 185 unit/L 12 - 191 12/01/2017 [facility] CHEM PANEL B/C Ratio 16 6 - 25 12/01/2017 [facility] CHEM PANEL Globulin 4.8 g/dL 2.7 - 4.2 12/01/2017 [facility] CHEM PANEL A/G Ratio 0.8 0.7 - 1.6 12/01/2017 [facility] CHEM PANEL ALT 30 unit/L 0 - 65 12/01/2017 [facility] CHEM PANEL Total Protein 8.6 g/dL 6.4 - 8.4 12/01/2017 [facility] CHEM PANEL Albumin Lvl 3.8 g/dL 3.5 - 5.0 12/01/2017 [facility] CHEM PANEL Bili Total 0.4 mg/dL 0.2 - 1.3 12/01/2017 [facility] CHEM PANEL Alk Phos 79 unit/L 39 - 136 12/01/2017 [facility] CHEM PANEL AST 16 unit/L 0 - 37 12/01/2017 [facility] HEMATOLOGY Segs 58.6 % 45.0 - 75.0 12/01/2017 [facility] Lymphocytes 36.7 % 20.0 - 40.0 12/01/2017 [facility] Segs-Bands # 4.1 K/CMM 1.5 - 8.1 12/01/2017 [facility] Lymphocytes # 2.6 K/CMM 1.0 - 5.5 12/01/2017 [facility] Eosinophils 0.3 % 0.0 - 4.0 12/01/2017 [facility] Monocytes 4.1 % 2.0 - 12.0 12/01/2017 [facility] Basophils 0.3 % 0.0 - 1.0 12/01/2017 [facility] Monocytes # 0.3 K/CMM 0.0 - 0.8 12/01/2017 [facility] PTT 30.7 s 22.9 - 35.8 12/01/2017 [facility] PT 13.3 s 12.0 - 14.7 12/01/2017 [facility] INR 1.01 0.85 - 1.17 12/01/2017 [facility] MCH 30.2 pg 27.0 - 31.0 12/01/2017 [facility] MCV 91.7 fL 80.0 - 94.0 12/01/2017 [facility] Hct 44.8 % 42.0 - 54.0 12/01/2017 [facility] MCHC 33.0 g/dL 32.0 - 36.0 12/01/2017 [facility] RDW 14.5 % 11.5 - 14.5 12/01/2017 [facility] Platelet 273 K/CMM 133 - 450 12/01/2017 [facility] MPV 7.8 fL 7.4 - 10.4 12/01/2017 [facility] Hgb 14.8 g/dL 14.0 - 18.0 12/01/2017 [facility] HEMATOLOGY WBC 7.0 K/CMM 3.7 - 10.4 12/01/2017 [facility] HEMATOLOGY RBC 4.89 M/CMM 4.70 - 6.10 12/01/2017 [facility] SPECIAL CHEMISTRY Hgb A1C 7.3 % <=5.6 % 12/01/2017 [facility] Knee 1-2 Views unilateral DX Knee 1-2 Views unilateral DX Study: Right knee, 2 views Clinical Indication: -Right knee pain post fall Comparison: None FINDINGS: AP and crosstable lateral images were obtained. The soft tissues are quite prominent. There is possible infrapatellar soft tissue contusion. No fracture is noted. Severe tricompartmental osteoarthritis is noted. No definite joint effusion is seen. IMPRESSION: Severe osteoarthritis. No fracture. SL: [id number] 12/01/2017 - - Read by: Angel Carson MD Dictated Date/time: 12/01/17 09:31 Electronically Signed by: Angel Carson MD 12/01/17 09:32 FINAL REPORT [facility] Pelvis AP DX Pelvis AP DX Study: Pelvis AP DX portable 11/23/2017 0543 hours Clinical Indication: - pain in lower back and pelvis after fall; Comparison: None FINDINGS: Image quality is severely compromised by the large patient size. No gross fracture or dislocation is identified. Sacroiliac and hip joints are maintained. SL: [id number] 12/01/2017 - - Read by: Angel Carson MD Dictated Date/time: 12/01/17 09:32 Electronically Signed by: Angel Carson MD 12/01/17 09:33 FINAL REPORT [facility] CARDIAC ENZYMES CK MB 3.5 ng/mL 0.5 - 3.6 12/01/2017 [facility] CARDIAC ENZYMES CK MB Index 1.9 0.0 - 2.5 12/01/2017 [facility] CARDIAC ENZYMES Troponin-I 0.04 ng/mL 0.00 - 0.40 12/01/2017 [facility] CARDIAC ENZYMES Total CK 189 unit/L 12 - 191 12/01/2017 [facility] CARDIAC ENZYMES CK MB Index 1.8 0.0 - 2.5 12/01/2017 [facility] CARDIAC ENZYMES Troponin-I 0.05 ng/mL 0.00 - 0.40 12/01/2017 [facility] CARDIAC ENZYMES proBNP 318 pg/mL 0 - 125 12/01/2017 [facility] CARDIAC ENZYMES Total CK 217 unit/L 12 - 191 12/01/2017 [facility] CARDIAC ENZYMES CK MB 4.0 ng/mL 0.5 - 3.6 12/01/2017 [facility] CHEM PANEL Bili Total 0.3 mg/dL 0.2 - 1.3 12/01/2017 [facility] CHEM PANEL A/G Ratio 0.8 0.7 - 1.6 12/01/2017 [facility] CHEM PANEL Globulin 4.6 g/dL 2.7 - 4.2 12/01/2017 [facility] CHEM PANEL Alk Phos 83 unit/L 39 - 136 12/01/2017 [facility] CHEM PANEL B/C Ratio 14 6 - 25 12/01/2017 [facility] CHEM PANEL Total Protein 8.4 g/dL 6.4 - 8.4 12/01/2017 [facility] CHEM PANEL Albumin Lvl 3.8 g/dL 3.5 - 5.0 12/01/2017 [facility] CHEM PANEL ALT 30 unit/L 0 - 65 12/01/2017 [facility] CHEM PANEL AST 20 unit/L 0 - 37 12/01/2017 [facility] HEMATOLOGY Eosinophils 1.3 % 0.0 - 4.0 12/01/2017 [facility] HEMATOLOGY Monocytes 7.0 % 2.0 - 12.0 12/01/2017 [facility] Lymphocytes 38.5 % 20.0 - 40.0 12/01/2017 [facility] HEMATOLOGY Segs 52.7 % 45.0 - 75.0 12/01/2017 [facility] HEMATOLOGY Eosinophils # 0.1 K/CMM 0.0 - 0.5 12/01/2017 [facility] HEMATOLOGY Monocytes # 0.5 K/CMM 0.0 - 0.8 12/01/2017 [facility] HEMATOLOGY Lymphocytes # 2.9 K/CMM 1.0 - 5.5 12/01/2017 [facility] Segs-Bands # 4.0 K/CMM 1.5 - 8.1 12/01/2017 [facility] Basophils 0.5 % 0.0 - 1.0 12/01/2017 [facility] HEMATOLOGY PTT 28.9 s 22.9 - 35.8 12/01/2017 [facility] HEMATOLOGY PT 13.1 s 12.0 - 14.7 12/01/2017 [facility] INR 0.99 0.85 - 1.17 12/01/2017 [facility] Hct 44.6 % 42.0 - 54.0 12/01/2017 [facility] Hgb 14.8 g/dL 14.0 - 18.0 12/01/2017 [facility] RBC 4.93 M/CMM 4.70 - 6.10 12/01/2017 [facility] MPV 7.9 fL 7.4 - 10.4 12/01/2017 [facility] Platelet 266 K/CMM 133 - 450 12/01/2017 [facility] RDW 14.4 % 11.5 - 14.5 12/01/2017 [facility] MCHC 33.2 g/dL 32.0 - 36.0 12/01/2017 [facility] MCH 30.1 pg 27.0 - 31.0 12/01/2017 [facility] WBC 7.6 K/CMM 3.7 - 10.4 12/01/2017 [facility] MCV 90.6 fL 80.0 - 94.0 12/01/2017 [facility] Chest 1view DX Chest 1view DX Clinical Indication: Chest tightness with dyspnea Comparison: None FINDINGS: The frontal chest radiograph shows normal lung volumes without interstitial or airspace opacities, pleural effusions or pneumothorax. There is linear scarring or atelectasis within the left midlung. The cardiomediastinal contours are normal for the age of the patient with aortic tortuosity. There are degenerative changes in the spine and shoulders. IMPRESSION: Left midlung scarring or atelectasis. SL: [id number] 11/30/2017 - - Read by: Fidencio Eli MD Dictated Date/time: 11/30/17 20:22 Electronically Signed by: Fidencio Eli MD 11/30/17 20:25 FINAL REPORT [facility] CHEM PANEL Magnesium Lvl 2.2 mg/dL 1.8 - 2.4 11/08/2017 [facility] CHEM PANEL Phosphorus 4.1 mg/dL 2.5 - 4.5 11/08/2017 [facility] ELECTROLYTES AGAP 9.2 meq/L 10.0 - 20.0 11/08/2017 [facility] ELECTROLYTES B/C Ratio 19 6 - 25 11/08/2017 [facility] ELECTROLYTES Globulin 4.3 g/dL 2.7 - 4.2 11/08/2017 [facility] ELECTROLYTES A/G Ratio 0.8 0.7 - 1.6 11/08/2017 [facility] ELECTROLYTES eGFR 85 mL/min/1.73m2 11/08/2017 Result Comment: The eGFR is calculated using the CKD-EPI formula. In most young, healthy individuals the eGFR will be >90 mL/min/1.73m2. The eGFR declines with age. An eGFR of 60-89 may be normal in some populations, particularly the elderly, for whom the CKD-EPI formula has not been extensively validated. Use of the eGFR is not recommended in the following populations: Individuals with unstable creatinine concentrations, including patients and those with serious co-morbid conditions. Patients with extremes in muscle mass or diet. The data above are obtained from the National Kidney Disease Education Program (NKDEP) which additionally recommends that when the eGFR is used in patients with extremes of body mass index for purposes of drug dosing, the eGFR should be multiplied by the estimated BMI. [facility] ELECTROLYTES Total Protein 7.8 g/dL 6.4 - 8.4 11/08/2017 [facility] ELECTROLYTES ALT 28 unit/L 0 - 65 11/08/2017 [facility] ELECTROLYTES Albumin Lvl 3.5 g/dL 3.5 - 5.0 11/08/2017 [facility] ELECTROLYTES AST 14 unit/L 0 - 37 11/08/2017 [facility] ELECTROLYTES Alk Phos 72 unit/L 39 - 136 11/08/2017 [facility] ELECTROLYTES Bili Total 0.5 mg/dL 0.2 - 1.3 11/08/2017 [facility] ELECTROLYTES Calcium Lvl 9.0 mg/dL 8.5 - 10.5 11/08/2017 [facility] ELECTROLYTES Glucose Lvl 117 mg/dL 70 - 99 11/08/2017 [facility] ELECTROLYTES BUN 22 mg/dL 7 - 22 11/08/2017 [facility] ELECTROLYTES Creatinine Lvl 1.15 mg/dL 0.50 - 1.40 11/08/2017 [facility] ELECTROLYTES CO2 31 meq/L 24 - 32 11/08/2017 [facility] ELECTROLYTES Potassium Lvl 4.2 meq/L 3.5 - 5.1 11/08/2017 [facility] ELECTROLYTES Sodium Lvl 138 meq/L 135 - 145 11/08/2017 [facility] ELECTROLYTES Chloride Lvl 102 meq/L 95 - 109 11/08/2017 [facility] HEMATOLOGY MCHC 34.3 g/dL 32.0 - 36.0 11/08/2017 [facility] MCV 89.9 fL 80.0 - 94.0 11/08/2017 [facility] MCH 30.8 pg 27.0 - 31.0 11/08/2017 [facility] HEMATOLOGY RDW 14.7 % 11.5 - 14.5 11/08/2017 [facility] Platelet 296 K/CMM 133 - 450 11/08/2017 [facility] MPV 7.7 fL 7.4 - 10.4 11/08/2017 [facility] HEMATOLOGY WBC 7.2 K/CMM 3.7 - 10.4 11/08/2017 [facility] Hct 43.3 % 42.0 - 54.0 11/08/2017 [facility] RBC 4.81 M/CMM 4.70 - 6.10 11/08/2017 [facility] Hgb 14.8 g/dL 14.0 - 18.0 11/08/2017 [facility] HEMATOLOGY Eosinophils 1.5 % 0.0 - 4.0 11/08/2017 [facility] HEMATOLOGY Eosinophils # 0.1 K/CMM 0.0 - 0.5 11/08/2017 [facility] Monocytes # 0.6 K/CMM 0.0 - 0.8 11/08/2017 [facility] Lymphocytes # 3.1 K/CMM 1.0 - 5.5 11/08/2017 [facility] Segs-Bands # 3.3 K/CMM 1.5 - 8.1 11/08/2017 [facility] Basophils 0.5 % 0.0 - 1.0 11/08/2017 [facility] HEMATOLOGY Segs 45.7 % 45.0 - 75.0 11/08/2017 [facility] Monocytes 8.9 % 2.0 - 12.0 11/08/2017 [facility] Lymphocytes 43.4 % 20.0 - 40.0 11/08/2017 [facility] CHEM PANEL Magnesium Lvl 2.2 mg/dL 1.8 - 2.4 11/07/2017 [facility] CHEM PANEL Phosphorus 3.6 mg/dL 2.5 - 4.5 11/07/2017 [place] CHEM PANEL eGFR 93 mL/min/1.73m2 11/07/2017 Result Comment: The eGFR is calculated using the CKD-EPI formula. In most young, healthy individuals the eGFR will be >90 mL/min/1.73m2. The eGFR declines with age. An eGFR of 60-89 may be normal in some populations, particularly the elderly, for whom the CKD-EPI formula has not been extensively validated. Use of the eGFR is not recommended in the following populations: Individuals with unstable creatinine concentrations, including patients and those with serious co-morbid conditions. Patients with extremes in muscle mass or diet. The data above are obtained from the National Kidney Disease Education Program (NKDEP) which additionally recommends that when the eGFR is used in patients with extremes of body mass index for purposes of drug dosing, the eGFR should be multiplied by the estimated BMI. [place] CHEM PANEL Calcium Lvl 8.6 mg/dL 8.5 - 10.5 11/07/2017 [place] CHEM PANEL AGAP 9.5 meq/L 10.0 - 20.0 11/07/2017 [place] CHEM PANEL Potassium Lvl 4.5 meq/L 3.5 - 5.1 11/07/2017 [place] CHEM PANEL CO2 32 meq/L 24 - 32 11/07/2017 [place] CHEM PANEL Chloride Lvl 100 meq/L 95 - 109 11/07/2017 [place] CHEM PANEL Sodium Lvl 137 meq/L 135 - 145 11/07/2017 [place] CHEM PANEL BUN 25 mg/dL 7 - 22 11/07/2017 [place] CHEM PANEL Glucose Lvl 121 mg/dL 70 - 99 11/07/2017 [place] CHEM PANEL Creatinine Lvl 1.06 mg/dL 0.50 - 1.40 11/07/2017 [place] CHEM PANEL Alk Phos 70 unit/L 39 - 136 11/06/2017 [place] CHEM PANEL Bili Total 0.5 mg/dL 0.2 - 1.3 11/06/2017 [place] CHEM PANEL eGFR 65 mL/min/1.73m2 11/06/2017 Result Comment: The eGFR is calculated using the CKD-EPI formula. In most young, healthy individuals the eGFR will be >90 mL/min/1.73m2. The eGFR declines with age. An eGFR of 60-89 may be normal in some populations, particularly the elderly, for whom the CKD-EPI formula has not been extensively validated. Use of the eGFR is not recommended in the following populations: Individuals with unstable creatinine concentrations, including patients and those with serious co-morbid conditions. Patients with extremes in muscle mass or diet. The data above are obtained from the National Kidney Disease Education Program (NKDEP) which additionally recommends that when the eGFR is used in patients with extremes of body mass index for purposes of drug dosing, the eGFR should be multiplied by the estimated BMI. [place] CHEM PANEL Potassium Lvl 4.2 meq/L 3.5 - 5.1 11/06/2017 [place] CHEM PANEL Sodium Lvl 137 meq/L 135 - 145 11/06/2017 [place] CHEM PANEL Creatinine Lvl 1.44 mg/dL 0.50 - 1.40 11/06/2017 [place] CHEM PANEL Chloride Lvl 102 meq/L 95 - 109 11/06/2017 [place] CHEM PANEL CO2 29 meq/L 24 - 32 11/06/2017 [place] CHEM PANEL Glucose Lvl 158 mg/dL 70 - 99 11/06/2017 [place] CHEM PANEL BUN 30 mg/dL 7 - 22 11/06/2017 [place] CHEM PANEL Albumin Lvl 3.8 g/dL 3.5 - 5.0 11/06/2017 [place] CHEM PANEL Total Protein 8.1 g/dL 6.4 - 8.4 11/06/2017 [place] CHEM PANEL Calcium Lvl 9.1 mg/dL 8.5 - 10.5 11/06/2017 [place] CHEM PANEL ALT 30 unit/L 0 - 65 11/06/2017 [place] CHEM PANEL AST 21 unit/L 0 - 37 11/06/2017 [place] CHEM PANEL A/G Ratio 0.9 0.7 - 1.6 11/06/2017 [place] CHEM PANEL B/C Ratio 21 6 - 25 11/06/2017 [place] CHEM PANEL AGAP 10.2 meq/L 10.0 - 20.0 11/06/2017 [place] CHEM PANEL Globulin 4.3 g/dL 2.7 - 4.2 11/06/2017 [place] CHEM PANEL Phosphorus 4.6 mg/dL 2.5 - 4.5 11/06/2017 [place] CHEM PANEL Magnesium Lvl 2.3 mg/dL 1.8 - 2.4 11/06/2017 [facility] HEMATOLOGY Lymphocytes # 3.2 K/CMM 1.0 - 5.5 11/06/2017 [facility] Segs-Bands # 7.0 K/CMM 1.5 - 8.1 11/06/2017 [facility] Monocytes # 0.8 K/CMM 0.0 - 0.8 11/06/2017 [facility] HEMATOLOGY Basophils # 0.1 K/CMM 0.0 - 0.2 11/06/2017 [facility] Monocytes 7.5 % 2.0 - 12.0 11/06/2017 [facility] HEMATOLOGY Basophils 0.6 % 0.0 - 1.0 11/06/2017 [facility] Eosinophils 0.3 % 0.0 - 4.0 11/06/2017 [facility] Segs 63.2 % 45.0 - 75.0 11/06/2017 [facility] Lymphocytes 28.4 % 20.0 - 40.0 11/06/2017 [facility] Platelet 317 K/CMM 133 - 450 11/06/2017 [facility] MPV 7.5 fL 7.4 - 10.4 11/06/2017 [facility] RDW 14.7 % 11.5 - 14.5 11/06/2017 [facility] MCHC 33.7 g/dL 32.0 - 36.0 11/06/2017 [facility] WBC 11.1 K/CMM 3.7 - 10.4 11/06/2017 [facility] Hct 43.6 % 42.0 - 54.0 11/06/2017 [facility] MCV 90.4 fL 80.0 - 94.0 11/06/2017 [facility] MCH 30.4 pg 27.0 - 31.0 11/06/2017 [facility] Hgb 14.7 g/dL 14.0 - 18.0 11/06/2017 [facility] RBC 4.82 M/CMM 4.70 - 6.10 11/06/2017 [facility] CARDIAC ENZYMES Troponin-I 0.04 ng/mL 0.00 - 0.40 11/05/2017 [facility] CARDIAC ENZYMES Troponin-I 0.09 ng/mL 0.00 - 0.40 11/05/2017 [facility] Ext Lower Venous Doppler Bilat US Ext Lower Venous Doppler Bilat US Clinical Indication: - pain and swelling , bilateral leg swelling, shortness of breath Comparison: None TECHNIQUE: Sonographic evaluation of the bilateral lower extremity veins was performed using high resolution B-mode imaging, along with pulse and color Doppler imaging. FINDINGS: Right lower extremity: The common femoral vein, femoral vein, popliteal vein and visualized posterior tibial/calf veins are patent. There is no echogenic debris to suggest deep venous thrombosis. The saphenofemoral junction is unremarkable. Left lower extremity: The common femoral vein, superficial femoral vein, popliteal vein and visualized posterior tibial/calf veins are patent. There is no echogenic debris to suggest deep venous thrombosis. The saphenofemoral junction is unremarkable. IMPRESSION: No sonographic evidence for deep vein thrombosis of the right or left lower extremity. SL: [id number] 11/05/2017 - - Read by: Roger Villela MD Dictated Date/time: 11/05/17 11:57 Electronically Signed by: Roger Villela MD 11/05/17 11:57 FINAL REPORT [facility] CARDIAC ENZYMES Troponin-I 0.12 ng/mL 0.00 - 0.40 11/05/2017 [facility] DRUG SCREEN U Amph Scr Negative *NA* (11/05/17 4:52 AM) Negative 11/05/2017 [facility] DRUG SCREEN U Cannab Scr Negative *NA* (11/05/17 4:52 AM) Negative 11/05/2017 [facility] DRUG SCREEN U Cocaine Scr Negative *NA* (11/05/17 4:52 AM) Negative 11/05/2017 [facility] DRUG SCREEN U Opiate Scr Negative *NA* (11/05/17 4:52 AM) Negative 11/05/2017 [facility] DRUG SCREEN U Benzodia Scr Negative *NA* (11/05/17 4:52 AM) Negative 11/05/2017 [facility] DRUG SCREEN U Elizabeth Scr Negative *NA* (11/05/17 4:52 AM) Negative 11/05/2017 [facility] DRUG SCREEN UDS Note See Note *NA* (11/05/17 4:52 AM) 11/05/2017 [facility] DRUG SCREEN U Phencyc Scr Negative *NA* (11/05/17 4:52 AM) Negative 11/05/2017 [facility] [place] URINE AND STOOL UA Mucus Few /LPF None Seen /LPF 11/05/2017 [place] URINE AND STOOL UA WBC 2 /HPF 0 - 5 11/05/2017 [place] URINE AND STOOL UA Leuk Est Negative (11/05/17 4:52 AM) Negative 11/05/2017 [place] URINE AND STOOL UA Sq Epi Occasional /LPF Few /LPF 11/05/2017 [place] URINE AND STOOL UA Blood Negative (11/05/17 4:52 AM) Negative 11/05/2017 [place] URINE AND STOOL UA RBC 4 /HPF 0 - 2 11/05/2017 [place] URINE AND STOOL UA Bili Negative *NA* (11/05/17 4:52 AM) Negative 11/05/2017 [place] URINE AND STOOL UA Urobilinogen 4.0 mg/dL 0.1 - 1.0 11/05/2017 [place] URINE AND STOOL UA Ketones Negative mg/dL Negative mg/dL 11/05/2017 [place] URINE AND STOOL UA Nitrite Negative (11/05/17 4:52 AM) Negative 11/05/2017 [place] URINE AND STOOL UA Protein 100 mg/dL Negative mg/dL 11/05/2017 [place] URINE AND STOOL UA pH 5.0 5.0 - 8.0 11/05/2017 [place] URINE AND STOOL UA Spec Grav 1.038 <=1.030 11/05/2017 [facility] URINE AND STOOL UA Turbidity Clear (11/05/17 4:52 AM) Clear 11/05/2017 [facility] URINE AND STOOL UA Glucose Negative mg/dL Negative mg/dL 11/05/2017 [facility] URINE AND STOOL UA Color Yellow *NA* (11/05/17 4:52 AM) Yellow 11/05/2017 [facility] CHEM PANEL Lactic Acid Lvl 1.7 mMol/L 0.5 - 2.2 11/05/2017 [facility] CARDIAC ENZYMES CK MB Index 1.1 0.0 - 2.5 11/05/2017 [facility] CARDIAC ENZYMES CK MB 7.4 ng/mL 0.5 - 3.6 11/05/2017 [facility] CARDIAC ENZYMES Total CK 666 unit/L 12 - 191 11/05/2017 [facility] CARDIAC ENZYMES proBNP 204 pg/mL 0 - 125 11/05/2017 [facility] CHEM PANEL A/G Ratio 0.8 0.7 - 1.6 11/05/2017 [facility] CHEM PANEL Alk Phos 78 unit/L 39 - 136 11/05/2017 [facility] CHEM PANEL AST 30 unit/L 0 - 37 11/05/2017 [facility] CHEM PANEL Total Protein 8.6 g/dL 6.4 - 8.4 11/05/2017 [facility] CHEM PANEL ALT 35 unit/L 0 - 65 11/05/2017 [facility] CHEM PANEL Albumin Lvl 3.7 g/dL 3.5 - 5.0 11/05/2017 [facility] CHEM PANEL Bili Total 0.4 mg/dL 0.2 - 1.3 11/05/2017 [facility] CHEM PANEL B/C Ratio 17 6 - 25 11/05/2017 [facility] CHEM PANEL Globulin 4.9 g/dL 2.7 - 4.2 11/05/2017 [facility] CHEM PANEL Lipase Lvl 197 unit/L 73 - 393 11/05/2017 [facility] HEMATOLOGY Lymphocytes 45.2 % 20.0 - 40.0 11/05/2017 [facility] HEMATOLOGY Segs 45.2 % 45.0 - 75.0 11/05/2017 [facility] HEMATOLOGY Eosinophils 1.9 % 0.0 - 4.0 11/05/2017 [facility] HEMATOLOGY Monocytes 7.1 % 2.0 - 12.0 11/05/2017 [facility] Segs-Bands # 3.4 K/CMM 1.5 - 8.1 11/05/2017 [facility] HEMATOLOGY Basophils 0.6 % 0.0 - 1.0 11/05/2017 [facility] HEMATOLOGY Lymphocytes # 3.4 K/CMM 1.0 - 5.5 11/05/2017 [facility] HEMATOLOGY Monocytes # 0.5 K/CMM 0.0 - 0.8 11/05/2017 [facility] HEMATOLOGY Eosinophils # 0.1 K/CMM 0.0 - 0.5 11/05/2017 [facility] MPV 7.6 fL 7.4 - 10.4 11/05/2017 [facility] RBC 5.19 M/CMM 4.70 - 6.10 11/05/2017 [facility] WBC 7.5 K/CMM 3.7 - 10.4 11/05/2017 [facility] Hgb 15.9 g/dL 14.0 - 18.0 11/05/2017 [facility] MCV 89.6 fL 80.0 - 94.0 11/05/2017 [facility] Hct 46.6 % 42.0 - 54.0 11/05/2017 [facility] RDW 14.7 % 11.5 - 14.5 11/05/2017 [facility] MCHC 34.2 g/dL 32.0 - 36.0 11/05/2017 [facility] MCH 30.6 pg 27.0 - 31.0 11/05/2017 [facility] Platelet 298 K/CMM 133 - 450 11/05/2017 [facility] PTT 28.1 s 22.9 - 35.8 11/05/2017 [facility] INR 0.97 0.85 - 1.17 11/05/2017 [facility] PT 12.9 s 12.0 - 14.7 11/05/2017 [facility] Chest CTA Chest CTA CT THORAX: PE PROTOCOL Clinical Indication: - c/f PE. Comparison: None. TECHNIQUE: Sequential trans-axial images were obtained thru the chest and upper abdomen after administration of iodinated contrast. CT imaging was performed with exposure control parameters to reduce radiation dose. Coronal and sagittal reconstructions were obtained. Coronal MIP reformats were provided. 100 cc of intravenous contrast material was used for the exam. Dose: VJM=930 mGy-cm FINDINGS: PULMONARY EMBOLISM: Extensive respiratory motion limits evaluation of the segmental and subsegmental pulmonary arteries. There is no evidence of a main central pulmonary embolism. LUNG PARENCHYMA AND PLEURA: Fine detail of the lung parenchyma is limited by motion. There is no focal consolidation. Scattered left lower lung subsegmental atelectasis noted.There are no pleural effusions. There is no pneumothorax. AIRWAY: The central airway is patent. HEART: The heart is normal in size. There is no pericardial effusion. VASCULAR STRUCTURES:The great vessels are otherwise normal in caliber. The aortic root sinus of Valsalva measures approximately 4.6 cm, this may be exaggerated by the motion. The sinotubular junction measures 3.3 cm. The aortic annulus measures 3.1 cm. LYMPH NODES: No evidence of thoracic adenopathy. OSSEOUS STRUCTURES: No acute abnormality seen. Chronic right posterior 3rd rib fracture is present. Bridging osteophytes are noted along the mid thoracic spine. VISUALIZED UPPER ABDOMEN: An 11 mm indeterminate left adrenal nodule is present. A 3.7 cm partially exophytic left renal cysts is noted. IMPRESSION: Extensive respiratory motion limits evaluation of the segmental and subsegmental pulmonary arteries. There is no evidence of a main central pulmonary embolism. If clinical concern persists repeat imaging or VQ scan can be obtained. No overt focal consolidation. Aortic sinus of Valsalva appears prominent in caliber, which may be related to motion. Follow-up study or echo can be obtained. A small indeterminate left adrenal nodule is noted. Dedicated adrenal imaging can be obtained if warranted. SL: [id number] 11/05/2017 - - Read by: Sharmin Harris MD Dictated Date/time: 11/05/17 04:56 Electronically Signed by: Sharmin Harris MD 11/05/17 05:27 FINAL REPORT [facility] Chest 1view DX Chest 1view DX Clinical Indication: Chest pain and dyspnea. Comparison: 01/19/2006. Technique: Single frontal view of the chest. Findings: The lungs are clear. There are no pleural effusions. The cardiac silhouette is normal in size. IMPRESSION: No acute disease. SL: [id number] 11/05/2017 - - Read by: Ty Francisco MD Dictated Date/time: 11/05/17 04:11 Electronically Signed by: Ty Francisco MD 11/05/17 04:12 FINAL REPORT [facility] Vital Signs Vital Sign Value Date Comments Source Systolic (mm Hg) 106 02/03/2018 [facility] Diastolic (mm Hg) 71 02/03/2018 [facility] Temperature Oral (F) 97.7 F 02/03/2018 [facility] Respitory Rate 18 02/03/2018 [facility] Heart Rate 85 02/03/2018 [facility] Heart Rate 69 02/03/2018 [facility] Temperature Oral (F) 98.5 F 02/03/2018 [facility] Respitory Rate 18 02/03/2018 [facility] Systolic (mm Hg) 86 02/03/2018 [facility] Diastolic (mm Hg) 52 02/03/2018 [facility] Respitory Rate 82 02/03/2018 [facility] Temperature Oral (F) 98.0 F 02/03/2018 [facility] Heart Rate 67 02/03/2018 [facility] Systolic (mm Hg) 125 02/03/2018 [facility] Diastolic (mm Hg) 75 02/03/2018 [facility] [place] Weight 133.182 02/03/2018 [facility] Weight 131 02/01/2018 [facility] BMI Calculated 40.28 02/01/2018 [facility] Height 180.34 cm 02/01/2018 [facility] BMI Calculated 40.28 02/01/2018 [facility] [place] Height 180.34 cm 02/01/2018 [facility] Weight 131 02/01/2018 [facility] BMI Calculated 30.19 01/31/2018 [facility] Height 180.34 cm 01/31/2018 [facility] Respitory Rate 18 01/09/2018 [facility] Heart Rate 78 01/09/2018 [facility] Systolic (mm Hg) 133 01/09/2018 [facility] Diastolic (mm Hg) 83 01/09/2018 [facility] Temperature Oral (F) 98.4 F 01/09/2018 [facility] Temperature Oral (F) 98.1 F 01/09/2018 [facility] Heart Rate 75 01/09/2018 [facility] Respitory Rate 18 01/09/2018 [facility] Systolic (mm Hg) 139 01/09/2018 [facility] Diastolic (mm Hg) 96 01/09/2018 [facility] Respitory Rate 16 01/09/2018 [facility] Temperature Oral (F) 97.8 F 01/09/2018 [facility] Systolic (mm Hg) 139 01/09/2018 [facility] Diastolic (mm Hg) 87 01/09/2018 [facility] Heart Rate 76 01/09/2018 [facility] BMI Calculated 43.76 01/06/2018 [facility] Weight 134.4 01/06/2018 [facility] Height 175.26 cm 01/06/2018 [facility] Height 180.34 cm 01/06/2018 [facility] BMI Calculated 41.2 01/06/2018 [facility] Weight 134 01/06/2018 [facility] Temperature Oral (F) 98.2 F 12/04/2017 [facility] Heart Rate 86 12/04/2017 [facility] Respitory Rate 18 12/04/2017 [facility] Systolic (mm Hg) 134 12/04/2017 [facility] Diastolic (mm Hg) 84 12/04/2017 [facility] Respitory Rate 18 12/04/2017 [facility] Systolic (mm Hg) 119 12/04/2017 [facility] Diastolic (mm Hg) 74 12/04/2017 [facility] Temperature Oral (F) 98.1 F 12/04/2017 [facility] Heart Rate 79 12/04/2017 [facility] Respitory Rate 18 12/04/2017 [facility] Temperature Oral (F) 98.4 F 12/04/2017 [facility] Systolic (mm Hg) 121 12/04/2017 [facility] Diastolic (mm Hg) 85 12/04/2017 [facility] Heart Rate 79 12/04/2017 [facility] Weight 142.591 12/03/2017 [facility] Height 180.34 cm 12/01/2017 [facility] Weight 133.8 12/01/2017 [facility] BMI Calculated 41.14 12/01/2017 [facility] Height 180.34 cm 12/01/2017 [facility] BMI Calculated 39.13 12/01/2017 [facility] Weight 127.273 12/01/2017 [facility] Systolic (mm Hg) 144 11/08/2017 [facility] Diastolic (mm Hg) 97 11/08/2017 [facility] Respitory Rate 19 11/08/2017 [facility] Heart Rate 82 11/08/2017 [facility] Temperature Oral (F) 98.5 F 11/08/2017 [facility] Respitory Rate 17 11/08/2017 [facility] Systolic (mm Hg) 145 11/08/2017 [facility] Diastolic (mm Hg) 94 11/08/2017 [facility] Heart Rate 82 11/08/2017 [facility] Respitory Rate 16 11/08/2017 [facility] Temperature Oral (F) 97.9 F 11/08/2017 [facility] Systolic (mm Hg) 125 11/08/2017 [facility] Diastolic (mm Hg) 84 11/08/2017 [facility] Temperature Oral (F) 98.1 F 11/08/2017 [facility] Heart Rate 76 11/08/2017 [facility] Weight 119.545 11/05/2017 [facility] BMI Calculated 36.76 11/05/2017 [facility] Height 180.34 cm 11/05/2017 [facility] Encounters Location Location Details Encounter Type Encounter Number Reason For Visit Attending Provider ADM Date DC Date Status Source [facility] Inpatient [id number] [facility] 11/05/2017 11/08/2017 [facility] Inpatient [id number] Sunny Ajibaaaliyah 12/01/2017 12/04/2017 [facility] Inpatient [id number] Sunny Ajyvonne 01/06/2018 01/09/2018 [facility] Inpatient [id number] Jonathan Warren 01/31/2018 02/04/2018 [facility] Procedures Procedure Code Date Perfomer Comments Source Ankle joint operations [id number] [facility] Knee joint operation [id number] [facility]
--- OUTSIDE RECORDS SUMMARY | 2018-06-07 22:17 | XMS REPORT | Summary of Care ---
Author Author [facility] Organization [facility] Address Unknown Phone Unavailable Encounter [facility](ALEX) [phone] Date(s): 01/31/18 - 02/03/18 [facility] [address] [place] [address]- [facility] [phone] Discharge Disposition: Home or Self Care Attending Physician: Jonathan Warren DO Admitting Physician: Jonathan Warren DO Vital Signs 1 2 3 Most recent to oldest [Reference Range]: 180.34 cm (01/31/18 10:40 PM) 180.34 cm (01/31/18 9:14 PM) 180.34 cm (01/31/18 4:37 PM) Height 97.7 DegF (02/03/18 4:08 PM) 98.5 DegF (02/03/18 11:15 AM) 98.0 DegF (02/03/18 7:34 AM) Temperature Oral [96.4-99.1 DegF] 106/71 mmHg (02/03/18 4:08 PM) 86/52 mmHg *LOW* (02/03/18 11:15 AM) 125/75 mmHg (02/03/18 7:34 AM) Blood Pressure [90-140/60-90 mmHg] 18 BRMIN (02/03/18 4:08 PM) 18 BRMIN (02/03/18 11:15 AM) 82 BRMIN *HI* (02/03/18 8:53 AM) Respiratory Rate [14-20 BRMIN] 85 bpm (02/03/18 4:08 PM) 69 bpm (02/03/18 11:15 AM) 67 bpm (02/03/18 7:34 AM) Peripheral Pulse Rate [60-100 bpm] 133.182 kg (02/03/18 6:51 AM) 131 kg (01/31/18 10:40 PM) 131 kg (01/31/18 9:14 PM) Weight 40.28 m2 (01/31/18 10:40 PM) 40.28 m2 (01/31/18 9:14 PM) 30.19 m2 (01/31/18 4:37 PM) Body Mass Index Problem List Condition Effective Dates Status Health Status Informant Hypertension(Confirm Resolved ed) Type II diabetes Active mellitus poorly controlled(Confirmed ) Allergies, Adverse Reactions, Alerts Substance Reaction Severity Status penicillins Active lisinopril Active Medications albuterol 0.083% inhalation solution 2.5 mg, 3.01 mL, Route: NEB, Drug form: SOLN, RQ2H, Dosing Weight 98.182, kg, NE N Wheezing, Priority: Routine, Start date: 01/31/18 20:35:00 CDT, Duration: 30 d ay, Stop date: 03/02/18 20:34:00 CDT Notes: SEE RT DOCUMENTATION (Same as: Donnell) Start Date: 01/31/18 Stop Date: 02/03/18 Status: Discontinued albuterol 0.083% inhalation solution 2.49 mg=3 mL, INHALATION, Q6H, PRN wheezing, coughing, or shortness of breath, # 100 ea, 5 Refill(s), Pharmacy: [id number] Start Date: 02/03/18 Stop Date: 08/02/18 Status: Ordered albuterol-ipratropium 2.5-0.5 mg inhalation solution 3 mL, Route: NEB, Drug Form: SOLN, Dosing Weight 98.182, kg, RQ6H, Start date: 0 02/01/18 2:00:00 CDT, Duration: 30 day, Stop date: 03/02/18 20:00:00 CDT Notes: (Same as: Duoneb) Start Date: 02/01/18 Stop Date: 02/03/18 Status: Discontinued Ambien 5 mg, 1 tab, Route: PO, Drug form: TAB, Bedtime, Dosing Weight 98.182, kg, Start date: 01/31/18 21:00:00 CDT, Duration: 30 day, Stop date: 03/01/18 21:00:00 CDT Notes: (Same As: Ambien) Start Date: 01/31/18 Stop Date: 02/03/18 Status: Discontinued aspirin 81 mg tablet, enteric coated 81 mg, 1 tab, Route: PO, Drug form: ECTAB, Daily, Dosing Weight 98.182, kg, Star t date: 02/01/18 9:00:00 CDT, Duration: 30 day, Stop date: 03/02/18 9:00:00 CDT Notes: Do not crush or chew.(Same As: Ecotrin) Start Date: 02/01/18 Stop Date: 02/03/18 Status: Discontinued atorvastatin 20 mg, 2 tab, Route: PO, Drug form: TAB, Bedtime, Dosing Weight 98.182, kg, Star t date: 01/31/18 21:00:00 CDT, Duration: 30 day, Stop date: 03/01/18 21:00:00 CD T Notes: (Same As: Lipitor) Start Date: 01/31/18 Stop Date: 02/03/18 Status: Discontinued atorvastatin 20 mg oral tablet 20 mg=1 tab, PO, Bedtime, # 30 tab, 0 Refill(s) Start Date: 01/31/18 Status: Ordered carvedilol 25 mg, 2 tab, Route: PO, Drug form: TAB, Q12H, Dosing Weight 98.182, kg, Start d ate: 01/31/18 21:00:00 CDT, Duration: 30 day, Stop date: 03/02/18 9:00:00 CDT Notes: Give with food. (Same As: Coreg) Start Date: 01/31/18 Stop Date: 02/03/18 Status: Discontinued carvedilol 25 mg oral tablet 25 mg=1 tab, PO, BID, # 180 tab, 1 Refill(s) Start Date: 01/31/18 Status: Ordered Dextrose 50% Syringe 25 gm, 50 mL, Route: IVP, Drug Form: INJ, Dosing Weight 98.182, kg, PRN, PRN Blo od Glucose Results, Start date: 01/31/18 20:38:00 CDT, Duration: 30 day, Stop da te: 03/02/18 20:37:00 CDT Start Date: 01/31/18 Stop Date: 02/03/18 Status: Discontinued Dextrose 50% Syringe 12.5 gm, 25 mL, Route: IVP, Drug Form: INJ, Dosing Weight 98.182, kg, PRN, PRN B lood Glucose Results, Start date: 01/31/18 20:38:00 CDT, Duration: 30 day, Stop date: 03/02/18 20:37:00 CDT Start Date: 01/31/18 Stop Date: 02/03/18 Status: Discontinued DuoNeb inhalation solution 9 mL, Route: NEB, Drug Form: SOLN, Dosing Weight 98.182, kg, PRN, PRN Respirator y Pathway, Start date: 01/31/18 18:04:00 CDT, Duration: 30 day, Stop date: 03/02 18:03:00 CDT Notes: (Same as: Duoneb) Start Date: 01/31/18 Stop Date: 02/03/18 Status: Discontinued enoxaparin 40 mg, 0.4 mL, Route: SUB-Q, Drug form: INJ, [id number], Dosing Weight 131, kg, St art date: 02/02/18 11:00:00 CDT, Duration: 30 day, Stop date: 03/03/18 23:00:00 CDT Notes: (Same as: Lovenox) Start Date: 02/02/18 Stop Date: 02/03/18 Status: Discontinued glucagon 1 mg, Route: IM, Drug form: PDR/INJ, PRN, Dosing Weight 98.182, kg, PRN Blood Gl ucose Results, Start date: 01/31/18 20:38:00 CDT, Duration: 30 day, Stop date: 0 03/02/18 20:37:00 CDT Start Date: 01/31/18 Stop Date: 02/03/18 Status: Discontinued insulin lispro 2 unit, 0.02 mL, Route: SUB-Q, Drug form: SOLN, ONCE, Dosing Weight 131, kg, Sta rt date: 02/02/18 23:24:00 CDT, Stop date: 02/02/18 23:24:00 CDT Notes: (Same as: Humalog ) Roll in palms of hands gently; Do not shake `vigorou sly. "Single Patient Use Only " WASTE: F/P - Black; E - [employer] [address] able for 28 days at room temperature.Expires in days from Da te Start Date: 02/02/18 Stop Date: 02/03/18 Status: Completed insulin lispro 15 unit, 0.15 mL, Route: SUB-Q, Drug form: SOLN, TID-Before Meals, Dosing Weight 98.182, kg, PRN Blood Glucose Results, Start date: 01/31/18 20:38:00 CDT, Durat ion: 30 day, Stop date: 03/02/18 20:37:00 CDT Notes: (Same as: Humalog ) Roll in palms of hands gently; Do not shake `vigorou sly. "Single Patient Use Only " WASTE: F/P - Black; E - [facility] [employer] [address] able for 28 days at room temperature.Expires in days from Da te Start Date: 01/31/18 Stop Date: 02/03/18 Status: Discontinued insulin lispro 12 unit, 0.12 mL, Route: SUB-Q, Drug form: SOLN, TID-Before Meals, Dosing Weight 98.182, kg, PRN Blood Glucose Results, Start date: 01/31/18 20:38:00 CDT, Durat ion: 30 day, Stop date: 03/02/18 20:37:00 CDT Notes: (Same as: Humalog ) Roll in palms of hands gently; Do not shake `vigorou sly. "Single Patient Use Only " WASTE: F/P - Black; E - [facility] [address] able for 28 days at room temperature.Expires in days from Da te Start Date: 01/31/18 Stop Date: 02/03/18 Status: Discontinued insulin lispro 3 unit, 0.03 mL, Route: SUB-Q, Drug form: SOLN, TID-Before Meals, Dosing Weight 98.182, kg, PRN Blood Glucose Results, Start date: 01/31/18 20:38:00 CDT, Durati on: 30 day, Stop date: 03/02/18 20:37:00 CDT Notes: (Same as: Humalog ) Roll in palms of hands gently; Do not shake `vigorou sly. "Single Patient Use Only " WASTE: F/P - Black; E - [facility] [address] [address] able for 28 days at room temperature.Expires in days from Da te Start Date: 01/31/18 Stop Date: 02/03/18 Status: Discontinued insulin lispro 9 unit, 0.09 mL, Route: SUB-Q, Drug form: SOLN, TID-Before Meals, Dosing Weight 98.182, kg, PRN Blood Glucose Results, Start date: 01/31/18 20:38:00 CDT, Durati on: 30 day, Stop date: 03/02/18 20:37:00 CDT Notes: (Same as: Humalog ) Roll in palms of hands gently; Do not shake `vigorou sly. "Single Patient Use Only " WASTE: F/P - Black; E - [facility] [address] able for 28 days at room temperature.Expires in days from Da te Start Date: 01/31/18 Stop Date: 02/03/18 Status: Discontinued insulin lispro 6 unit, 0.06 mL, Route: SUB-Q, Drug form: SOLN, TID-Before Meals, Dosing Weight 98.182, kg, PRN Blood Glucose Results, Start date: 01/31/18 20:38:00 CDT, Durati on: 30 day, Stop date: 03/02/18 20:37:00 CDT Notes: (Same as: Humalog ) Roll in palms of hands gently; Do not shake `vigorou sly. "Single Patient Use Only " WASTE: F/P - Black; E - [facility] [address] [address] able for 28 days at room temperature.Expires in days from Da te Start Date: 01/31/18 Stop Date: 02/03/18 Status: Discontinued Lasix 40 mg, Route: IVP, Drug form: INJ, BID Diuretic, Dosing Weight 98.182, kg, Start date: 02/01/18 8:00:00 CDT, Duration: 30 day, Stop date: 03/02/18 16:00:00 CDT Start Date: 02/01/18 Stop Date: 01/31/18 Status: Canceled Lasix 40 mg, 4 mL, Route: IVP, Drug form: INJ, BID, Dosing Weight 131, kg, Start date: 02/01/18 11:53:00 CDT, Duration: 30 day, Stop date: 03/03/18 9:00:00 CDT Notes: (Same as: Lasix) MEDICATION WASTE Product Size: 40 mgProduct Was leeanne: ___ mg Start Date: 02/01/18 Stop Date: 02/03/18 Status: Discontinued Lasix 40 mg oral tablet 40 mg=1 tab, PO, BID, 0 Refill(s) Start Date: 01/31/18 Stop Date: 02/03/18 Status: Discontinued Lasix 40 mg oral tablet 40 mg=1 tab, PO, BID, # 60 tab, 5 Refill(s), Pharmacy: [id number] Start Date: 02/03/18 Stop Date: 08/02/18 Status: Ordered levofloxacin 750 mg, 150 mL, Route: IVPB, Drug form: SOLN, [id number], Dosing Weight 98.182, kg, for CrCl >49 mL/min, Start date: 01/31/18 21:00:00 CDT, Duration: 5 day, Stop date: 02/04/18 21:00:00 CDT, ABX Indication: Non-PNA Respiratory Tract Infection Notes: (Same as:Levaquin) Start Date: 01/31/18 Stop Date: 02/03/18 Status: Discontinued metFORMIN 500 mg oral tablet 500 mg, 1 tab, Route: PO, Drug form: TAB, BID, Dosing Weight 131, kg, Start date : 02/03/18 9:00:00 CDT, Duration: 30 day, Stop date: 03/04/18 17:00:00 CDT Notes: (Same as: Glucophage) Take with meal Start Date: 02/03/18 Stop Date: 02/03/18 Status: Discontinued methylPREDNISolone SODium SUCCinate 40 mg, 1 mL, Route: IVP, Drug form: INJ, Q8H, Dosing Weight 98.182, kg, Start da te: 02/01/18 0:00:00 CDT, Duration: 5 day, Stop date: 02/05/18 16:00:00 CDT Notes: (Same as:Solu-MEDROL, A-Methapred) Start Date: 02/01/18 Stop Date: 02/01/18 Status: Discontinued morphine Sulfate 6 mg, 3 mL, Route: PO, Drug form: SOLN, Q4H, Dosing Weight 131, kg, PRN Pain Sco re 7-10, Start date: 02/01/18 11:09:00 CDT, Duration: 30 day, Stop date: 8 11:08:00 CDT Notes: (Same as:MORPhine Sulfate) Start Date: 02/01/18 Stop Date: 02/03/18 Status: Discontinued morphine Sulfate 2 mg, 2 mL, Route: IVP, Drug form: SOLN, Q4H, Dosing Weight 98.182, kg, PRN Pain Score 7-10, Priority: STAT, Start date: 01/31/18 21:01:00 CDT, Duration: 30 day, Stop date: 03/02/18 21:00:00 CDT Notes: Preservative free. (Same as: Morphine Sulfate-PF) Start Date: 01/31/18 Stop Date: 02/01/18 Status: Discontinued Narcan 2 mg, 2 mL, Route: IVP, Drug form: INJ, ONCE, Dosing Weight 98.182, kg, Priority : STAT, Start date: 01/31/18 18:05:00 CDT, Stop date: 01/31/18 18:05:00 CDT Notes: (Same as: Narcan) MEDICATION WASTE Product Size: 2 mgProduct Was leeanne: ___ mg Start Date: 01/31/18 Stop Date: 01/31/18 Status: Completed NIFEdipine 30 mg oral tablet, extended release 30 mg, 1 tab, Route: PO, Drug form: ERTAB, Daily, Dosing Weight 98.182, kg, Star t date: 02/01/18 9:00:00 CDT, Duration: 30 day, Stop date: 03/02/18 9:00:00 CDT Notes: (Same as: Adalat CC, Procardia XL) Give on empty stomach. Take 1 hour be fore or 2 hours after meal; "Avoid grapefruit and grapefruit juice". Do not cru sh Start Date: 02/01/18 Stop Date: 02/03/18 Status: Discontinued Reliance 10/325 oral tablet 1 tab, Route: PO, Drug Form: TAB, Dosing Weight 98.182, kg, Q6H, Start date: 0:00:00 CDT, Duration: 30 day, Stop date: 03/02/18 18:00:00 CDT Notes: Do not exceed 4gm/day of acetaminophen. (Same as: Reliance 325/10) Start Date: 02/01/18 Stop Date: 02/01/18 Status: Discontinued Reliance 10/325 oral tablet 1 tab, Route: PO, Drug Form: TAB, Dosing Weight 98.182, kg, Q6H, PRN Pain Score 4-6, Start date: 02/01/18 11:40:00 CDT, Duration: 30 day, Stop date: 03/03/18 11 :39:00 CDT Notes: Do not exceed 4gm/day of acetaminophen. (Same as: Reliance 325/10) Start Date: 02/01/18 Stop Date: 02/03/18 Status: Discontinued potassium chloride 10 mEq oral tablet, extended release 10 mEq, 1 tab, Route: PO, Drug form: ERTAB, Daily, Dosing Weight 98.182, kg, Sta rt date: 02/01/18 9:00:00 CDT, Duration: 30 day, Stop date: 03/02/18 9:00:00 CDT Notes: (Same as: K-Dur 10)"Do Not Crush" With food and full glass of water Start Date: 02/01/18 Stop Date: 02/03/18 Status: Discontinued predniSONE 20 mg, 1 tab, Route: PO, Drug form: TAB, Daily, Dosing Weight 131, kg, Start reena e: 02/02/18 9:00:00 CDT, Stop date: 03/03/18 9:00:00 CDT Notes: Take with food. Start Date: 02/02/18 Stop Date: 02/03/18 Status: Discontinued Saline Flush 0.9% 10 mL, Route: IVP, Drug Form: INJ, Dosing Weight 98.182, kg, PRN, PRN Line Flush , Start date: 01/31/18 17:08:00 CDT, Duration: 30 day, Stop date: 03/02/18 17:07 :00 CDT Notes: (Same as: BD Posiflush) Start Date: 01/31/18 Stop Date: 02/03/18 Status: Discontinued Sodium Chloride 0.9% (Bolus) IV 1,000 mL, 1000 ml/hr, Infuse Over: 1 hr, Route: IV, 1,000, Drug form: INJ, ONCE, Priority: STAT, Dosing Weight 98.182 kg, Start date: 01/31/18 18:05:00 CDT, Stop date: 01/31/18 18:05:00 CDT Start Date: 01/31/18 Stop Date: 01/31/18 Status: Completed Solu-MEDROL 125 mg, Route: IVP, ONCE, Dosing Weight 98.182, kg, Priority: STAT, Start date: 01/31/18 17:18:00 CDT, Stop date: 01/31/18 17:18:00 CDT Start Date: 01/31/18 Stop Date: 01/31/18 Status: Completed valsartan 240 mg, 3 tab, Route: PO, Drug form: TAB, Daily, Dosing Weight 98.182, kg, Start date: 02/01/18 9:00:00 CDT, Duration: 30 day, Stop date: 03/02/18 9:00:00 CDT Notes: Same as Michelle Start Date: 02/01/18 Stop Date: 02/03/18 Status: Discontinued zolpidem 10 mg oral tablet 10 mg=1 tab, PO, Bedtime, # 14 tab, 0 Refill(s) Start Date: 01/31/18 Stop Date: 02/03/18 Status: Discontinued Results ELECTROLYTES 1 2 3 Most recent to oldest [Reference Range]: 137 mEq/L (02/03/18 4:11 AM) 137 mEq/L (02/02/18 3:19 AM) 128 mEq/L *LOW* (01/31/18 5:51 PM) Sodium Lvl [135-145 mEq/L] 4.2 mEq/L (02/03/18 4:11 AM) 4.5 mEq/L (02/02/18 3:19 AM) 4.6 mEq/L (01/31/18 5:51 PM) Potassium Lvl [3.5-5.1 mEq/L] 93 mEq/L *LOW* (02/03/18 4:11 AM) 95 mEq/L (02/02/18 3:19 AM) 91 mEq/L *LOW* (01/31/18 5:51 PM) Chloride Lvl [95-109 mEq/L] 35 mEq/L *HI* (02/03/18 4:11 AM) 34 mEq/L *HI* (02/02/18 3:19 AM) 27 mEq/L (01/31/18 5:51 PM) CO2 [24-32 mEq/L] 13.2 mEq/L (02/03/18 4:11 AM) 12.5 mEq/L (02/02/18 3:19 AM) 14.6 mEq/L (01/31/18 5:51 PM) AGAP [10.0-20.0 mEq/L] CHEM PANEL 1 2 3 Most recent to oldest [Reference Range]: 1.10 mg/dL (02/03/18 4:11 AM) 1.27 mg/dL (02/02/18 3:19 AM) 1.11 mg/dL (01/31/18 5:51 PM) Creatinine Lvl [0.50-1.40 mg/dL] 89 mL/min/1.73m2 1 *NA* (02/03/18 4:11 AM) 75 mL/min/1.73m2 2 *NA* (02/02/18 3:19 AM) 88 mL/min/1.73m2 3 *NA* (01/31/18 5:51 PM) eGFR 26 mg/dL *HI* (02/03/18 4:11 AM) 32 mg/dL *HI* (02/02/18 3:19 AM) 20 mg/dL (01/31/18 5:51 PM) BUN [7-22 mg/dL] 25 (02/02/18 3:19 AM) 18 (01/31/18 5:51 PM) B/C Ratio [6-25] 160 mg/dL *HI* (02/03/18 4:11 AM) 173 mg/dL *HI* (02/02/18 3:19 AM) 133 mg/dL *HI* (01/31/18 5:51 PM) Glucose Lvl [70-99 mg/dL] 7.2 g/dL (02/02/18 3:19 AM) 8.3 g/dL (01/31/18 5:51 PM) Total Protein [6.4-8.4 g/dL] 3.3 g/dL *LOW* (02/02/18 3:19 AM) 3.8 g/dL (01/31/18 5:51 PM) Albumin Lvl [3.5-5.0 g/dL] 3.9 g/dL (02/02/18 3:19 AM) 4.5 g/dL *HI* (01/31/18 5:51 PM) Globulin [2.7-4.2 g/dL] 0.8 (02/02/18 3:19 AM) 0.8 (01/31/18 5:51 PM) A/G Ratio [0.7-1.6] 9.2 mg/dL (02/03/18 4:11 AM) 9.2 mg/dL (02/02/18 3:19 AM) 8.8 mg/dL (01/31/18 5:51 PM) Calcium Lvl [8.5-10.5 mg/dL] 2.2 mg/dL (02/02/18 12:56 PM) Magnesium Lvl [1.8-2.4 mg/dL] 26 unit/L (02/02/18 3:19 AM) 25 unit/L (01/31/18 5:51 PM) ALT [0-65 unit/L] 16 unit/L (02/02/18 3:19 AM) 35 unit/L (01/31/18 5:51 PM) AST [0-37 unit/L] 69 unit/L (02/02/18 3:19 AM) 80 unit/L (01/31/18 5:51 PM) Alk Phos [39-136 unit/L] 0.4 mg/dL (02/02/18 3:19 AM) 0.7 mg/dL (01/31/18 5:51 PM) Bili Total [0.2-1.3 mg/dL] 146 unit/L (01/31/18 5:51 PM) Lipase Lvl [73-393 unit/L] 1Result Comment: The eGFR is calculated using the [...] from the National Kid[employer] Disease Education Program ( NKDEP) which additionally recommends that when the eGFR is used in patients with extremes of body mass index for purposes of drug dosing, the eGFR should be mul tiplied by the estimated BMI. 2Result Comment: The eGFR is calculated using the [...] from the National Kid[employer] Education Program ( NKDEP) which additionally recommends that when the eGFR is used in patients with extremes of body mass index for purposes of drug dosing, the eGFR should be mul tiplied by the estimated BMI. 3Result Comment: The eGFR is calculated using the [...] from the National Kid[employer] Disease Education Program ( NKDEP) which additionally recommends that when the eGFR is used in patients with extremes of body mass index for purposes of drug dosing, the eGFR should be mul tiplied by the estimated BMI. CARDIAC ENZYMES 1 2 3 Most recent to oldest [Reference Range]: 422 unit/L *HI* (02/01/18 1:50 AM) 433 unit/L *HI* (01/31/18 9:49 PM) 534 unit/L *HI* (01/31/18 5:51 PM) Total CK [12-191 unit/L] 5.4 ng/mL *HI* (02/01/18 1:50 AM) 5.9 ng/mL *HI* (01/31/18 9:49 PM) 6.9 ng/mL *HI* (01/31/18 5:51 PM) CK MB [0.5-3.6 ng/mL] 1.3 (02/01/18 1:50 AM) 1.4 (01/31/18 9:49 PM) 1.3 (01/31/18 5:51 PM) CK MB Index [0.0-2.5] 0.05 ng/mL (02/01/18 1:50 AM) 0.06 ng/mL (01/31/18 9:49 PM) 0.11 ng/mL (01/31/18 5:51 PM) Troponin-I [0.00-0.40 ng/mL] 1159 pg/mL *HI* (01/31/18 5:51 PM) proBNP [0-125 pg/mL] SPECIAL CHEMISTRY 1 2 3 Most recent to oldest [Reference Range]: 8.5 % *HI* (02/03/18 4:11 AM) Hgb A1C [<=5.6 %] DRUG SCREEN 1 2 3 Most recent to oldest [Reference Range]: Negative *NA* (01/31/18 11:58 PM) U Amph Scr [Negative] Negative *NA* (01/31/18 11:58 PM) U Elizabeth Scr [Negative] Negative *NA* (01/31/18 11:58 PM) U Benzodia Scr [Negative] Negative *NA* (01/31/18 11:58 PM) U Cocaine Scr [Negative] Positive *ABN* (01/31/18 11:58 PM) U Opiate Scr [Negative] Negative *NA* (01/31/18 11:58 PM) U Phencyc Scr [Negative] Negative *NA* (01/31/18 11:58 PM) U Cannab Scr [Negative] See Note (01/31/18 11:58 PM) UDS Note URINE AND STOOL 1 2 3 Most recent to oldest [Reference Range]: Clear (01/31/18 11:58 PM) UA Turbidity [Clear] STRAW *NA* (01/31/18 11:58 PM) UA Color 6.0 (01/31/18 11:58 PM) UA pH [5.0-8.0] 1.003 (01/31/18 11:58 PM) UA Spec Grav [<=1.030] >=500 mg/dL *NA* (01/31/18 11:58 PM) UA Glucose Small *ABN* (01/31/18 11:58 PM) UA Blood [Negative] Negative mg/dL *NA* (01/31/18 11:58 PM) UA Ketones [Negative mg/dL] Negative mg/dL (01/31/18 11:58 PM) UA Protein [Negative mg/dL] <=1.0 mg/dL *NA* (01/31/18 11:58 PM) UA Urobilinogen [0.1-1.0 mg/dL] Negative *NA* (01/31/18 11:58 PM) UA Bili [Negative] Negative (01/31/18 11:58 PM) UA Leuk Est [Negative] Negative (01/31/18 11:58 PM) UA Nitrite [Negative] 1 /HPF (01/31/18 11:58 PM) UA WBC [0-5 /HPF] <1 /HPF (01/31/18 11:58 PM) UA RBC [0-2 /HPF] None Seen *NA* (01/31/18 11:58 PM) UA Sq Epi HEMATOLOGY 1 2 3 Most recent to oldest [Reference Range]: 11.7 K/CMM *HI* (02/02/18 3:19 AM) 7.8 K/CMM (01/31/18 5:13 PM) WBC [3.7-10.4 K/CMM] 4.71 M/CMM (02/02/18 3:19 AM) 5.03 M/CMM (01/31/18 5:13 PM) RBC [4.70-6.10 M/CMM] 14.1 g/dL (02/02/18 3:19 AM) 15.4 g/dL (01/31/18 5:13 PM) Hgb [14.0-18.0 g/dL] 44.3 % (02/02/18 3:19 AM) 45.4 % (01/31/18 5:13 PM) Hct [42.0-54.0 %] 93.9 fL (02/02/18:19 AM) 90.3 fL (01/31/18 5:13 PM) MCV [80.0-94.0 fL] 29.9 pg (02/02/18:19 AM) 30.6 pg (01/31/18 5:13 PM) MCH [27.0-31.0 pg] 31.9 g/dL *LOW* (02/02/18:19 AM) 33.9 g/dL (01/31/18 5:13 PM) MCHC [32.0-36.0 g/dL] 14.1 % (02/02/18:19 AM) 13.8 % (01/31/18 5:13 PM) RDW [11.5-14.5 %] 7.6 fL (02/02/18:19 AM) 7.4 fL (01/31/18 5:13 PM) MPV [7.4-10.4 fL] 258 K/CMM (02/02/18:19 AM) 269 K/CMM (01/31/18:13 PM) Platelet [133-450 K/CMM] 70.2 % (02/02/18:19 AM) 57.4 % (01/31/18 5:13 PM) Segs [45.0-75.0 %] 20.8 % (02/02/18:19 AM) 33.8 % (01/31/18 5:13 PM) Lymphocytes [20.0-40.0 %] 8.6 % (02/02/18:19 AM) 7.2 % (01/31/18 5:13 PM) Monocytes [2.0-12.0 %] 0.1 % (02/02/18:19 AM) 1.1 % (01/31/18 5:13 PM) Eosinophils [0.0-4.0 %] 0.3 % (02/02/18:19 AM) 0.5 % (01/31/18 5:13 PM) Basophils [0.0-1.0 %] 8.2 K/CMM *HI* (02/02/18 3:19 AM) 4.5 K/CMM (01/31/18 5:13 PM) Segs-Bands # [1.5-8.1 K/CMM] 2.4 K/CMM (02/02/18 3:19 AM) 2.6 K/CMM (01/31/18 5:13 PM) Lymphocytes # [1.0-5.5 K/CMM] 1.0 K/CMM *HI* (02/02/18 3:19 AM) 0.6 K/CMM (01/31/18 5:13 PM) Monocytes # [0.0-0.8 K/CMM] 0.1 K/CMM (01/31/18 5:13 PM) Eosinophils # [0.0-0.5 K/CMM] BACTERIAL - SEROLOGY 1 2 3 Most recent to oldest [Reference Range]: Negative (01/31/18 11:58 PM) MRSA by PCR Immunizations Given and Recorded Vaccine Date Status Refusal Reason pneumococcal 23-valent vaccine 02/01/18 Given Procedures Procedure Date Related Diagnosis Body Site Status Ankle joint operations Completed Knee joint operation Completed Social History Social History Type Response Alcohol Current, Type Wine. Frequency: 1-2 times per week. 1 Drinks/Episode average. Started age 52 Years. Previous treatment: None. Alcohol use interferes with work or home: No. Drinks more than intended: No. Others hurt by drinking: No. Ready to change: No. Household alcohol concerns: No. Smoking Status Never smoker; Exposure to Tobacco Smoke None; Cigarette Smoking Last 365 Days No; Reg Smoking Cessation Counseling No entered on: 01/31/18 Assessment and Plan Extracted from: Title: PCCM Author: Conor Rutherford Date: 02/03/18 Markus CAMARA [facility] Pulmonary/Critical Care Progress Note History of Present Illness Mr. Cueva is a 52 year old man with history of hypertension, systolic (LVEF 40-45%) and diastolic CHF, morbid obesity who was admitted 01/31/18 for acute hypoxemic and hypercapneic respiratory failure. He feels better today, currently on room air. Review of systems Constitutional: no fever, no chills Respiratory: mild cough, no shortness of breath Cardiovascular: no chest pain, no palpitations GI: no vomiting, no diarrhea Allergies (1) ActiveReaction lisinoprilNone Documented Vital Signs (last 24 hrs) Last Charted Temp Oral97.7 DegF (FEB 03:) Heart Rate [id number] bpm (FEB 03:) Resp Rate 18 BRMIN (FEB 03:) OQL003 mmHg (FEB 03) DBP71 mmHg (FEB 03:) SpO2L 92% (FEB 03) Mejclv860.18 kg (FEB 03 06:51) Physical examination General: Lying in bed with head of bed at 30 degrees, in no distress, appears comfortable Heart: Regular rate and rhythm, S1 and S2 heard Lungs: Decreased breath sounds in lung bases bilaterally, normal work of breathing Abdomen: Soft, obese, bowel sounds normoactive Extremities: No edema in legs, hands and feet are warm Skin: No rashes, no bruises Neurologic: Awake/alert, speech fluent Labs (Last four charted values) WBC H 11.7(FEB 02)7.8(JAN 31) Hgb 14.1(FEB 02)15.4(JAN 31) Hct 44.3(FEB 02)45.4(JAN 31) Plt 258(FEB 02)269(JAN 31) Na 137(FEB 03)137(FEB 02)L 128(JAN 31) K 4.2(FEB 03)4.5(FEB 02)4.6(JAN 31) CO2 H 35(FEB 03)H 34(FEB 02)27(JAN 31) Cl L 93(FEB 03)95(FEB 02)L 91(JAN 31) Cr 1.10(FEB 03)1.27(FEB 02)1.11(JAN 31) BUN H 26(FEB 03)H 32(FEB 02)20(JAN 31) Glucose Random H 160(FEB 03)H 173(FEB 02)H 133(JAN 31) Mg 2.2(FEB 02) Ca 9.2(FEB 03)9.2(FEB 02)8.8(JAN 31) Troponin 0.05(FEB 01)0.06(JAN 31)0.11(JAN 31) CK MB H 5.4(FEB 01)H 5.9(JAN 31)H 6.9(JAN 31) Total CK H 422(FEB 01)H 433(JAN 31)H 534(JAN 31) Imaging/Studies No new studies Impression 1. Systolic/diastolic CHF with exacerbation 2. Acute hypoxemic and hypercapneic respiratory failure 3. Morbid obesity 4. Hypertension 5. Probable obstructive sleep apnea 6. Type 2 diabetes _ Plan/Recommendations 1. Continue Lasix BID, creatinine stable, continue at discharge 2. Continue Duonebs, can stop prednisone 3. Wean off nasal cannula to keep SpO2 > 89%, continue BiPAP at night 4. Lovenox for DVT prophylaxis 5. OK to discharge if oxygenation stable on room air, follow with me in clinic on Sunday to schedule sleep study Conor Rutherford MD #[id number] Pulmonary/Critical Care Medicine [facility] Extracted from: Title: General Admission H&P * Author: Ulises Robertson MD Date: 01/31/18 Impression and Plan Patient is a 52-year-old male history of a dilated cardiomyopathy hypertension and diabetes presents with a 2 day history of worsening shortness of breath etiology appears to be secondary to acute hypercapnic respiratory failure We will place patient in [facility] We will consult pulmonary to evaluate patient We will place patient on BiPAP We will place patient on albuterol and Atrovent nebulizer treatments We will place patient on Solu-Medrol 40 mg IV every [address] patient on IV antibiotics of Rocephin and Zithromax 2. Hypertension: Is stable we will continue his Coreg as well as and nifedipine 3. Hyperlipidemia we will resume his atorvastatin 20 mg p.o. is daily 4. Diabetes mellitus will resume his his metformin will place him on a insulin MPP 5 hyponatremia sodium is 128. Possibly secondary to diuretics 6. Dilated cardiomyopathy patient does have elevated BNP of [address] him on IV Lasix 40 mg IV every 12 hours 7. Disposition will require stay greater than 2 midnights and therefore need to be made inpatient status 8. Elevated cardiac enzymes will check serial cardiac enzymes
--- OUTSIDE RECORDS SUMMARY | 2018-06-07 22:17 | XMS REPORT | Summary of Care ---
Author Author [facility] Organization [facility] Address Unknown Phone Unavailable Encounter CARINE Gage(ALEX) [id number] Date(s): 11/30/17 - 12/04/17 [facility] [id number] [place] [address]- [facility] [phone] Discharge Disposition: Home or Self Care Attending Physician: Sunny Cabrera MD Admitting Physician: Sunny Cabrera MD Vital Signs 1 2 3 Most recent to oldest [Reference Range]: 180.34 cm (11/30/17 11:03 PM) 180.34 cm (11/30/17 7:40 PM) Height 98.2 DegF (12/04/17 12:00 PM) 98.1 DegF (12/04/17 8:00 AM) 98.4 DegF (12/04/17 3:35 AM) Temperature Oral [96.4-99.1 DegF] 134/84 mmHg (12/04/17 12:00 PM) 119/74 mmHg (12/04/17 8:00 AM) 121/85 mmHg (12/04/17 3:35 AM) Blood Pressure [90-140/60-90 mmHg] 18 BRMIN (12/04/17 12:00 PM) 18 BRMIN (12/04/17 8:00 AM) 18 BRMIN (12/04/17 7:23 AM) Respiratory Rate [14-20 BRMIN] 86 bpm (12/04/17 12:00 PM) 79 bpm (12/04/17 8:00 AM) 79 bpm (12/04/17 3:35 AM) Peripheral Pulse Rate [60-100 bpm] 142.591 kg (12/03/17 5:59 AM) 133.8 kg (11/30/17 11:03 PM) 127.273 kg (11/30/17 7:40 PM) Weight 41.14 m2 (11/30/17 11:03 PM) 39.13 m2 (11/30/17 7:40 PM) Body Mass Index Problem List Condition Effective Dates Status Health Status Informant Hypertension(Confirm Resolved ed) Allergies, Adverse Reactions, Alerts Substance Reaction Severity Status penicillins Active lisinopril Active Medications Accu-Chek FastClix Lancets 1 ea, MISC, Daily, Use for blood glucose monitoring., # 30 ea, Not insulin depen dent, Does not use insulin pump, Last DM eval date 12/04/17, 0 Refill(s) Start Date: 12/04/17 Stop Date: 01/03/18 Status: Ordered Accu-Chek Guide Blood Glucose Meter 1 ea, MISC, ONCE, Use for blood glucose monitoring, # 1 ea, Not insulin dependen t, Does not use insulin pump, Last DM eval date 12/04/17, 0 Refill(s) Start Date: 12/04/17 Status: Ordered Accu-Chek Guide Blood Glucose Test Strips 1 ea, MISC, Daily, Use for blood glucose monitoring., # 100 ea, Not insulin depe ndent, Does not use insulin pump, Last DM eval date 12/04/17, 0 Refill(s) Start Date: 12/04/17 Stop Date: 12/04/18 Status: Ordered acetaminophen 650 mg, 2 tab, Route: PO, Drug form: TAB, Q4H, Dosing Weight 127.273, kg, PRN Pa in 1-3/Temp > 100.4 F, Start date: 11/30/17 21:35:00 CDT, Duration: 30 day, Stop date: 12/30/17 21:34:00 CDT Notes: Do not exceed 4 gm/day. (Same as: Tylenol) Start Date: 11/30/17 Stop Date: 12/04/17 Status: Discontinued albuterol 0.083% inhalation solution 2.49 mg=3 mL, INHALATION, Q6H, PRN wheezing, coughing, or shortness of breath, # 100 ea, 0 Refill(s), Pharmacy: [facility] [id number] Start Date: 12/04/17 Stop Date: 01/03/18 Status: Ordered Ambien 10 mg, 2 tab, Route: PO, Drug form: TAB, Bedtime, Dosing Weight 133.8, kg, PRN I nsomnia, Start date: 12/02/17 0:23:00 CDT, Duration: 30 day, Stop date: 01/01/18 0:22:00 CDT Notes: (Same As: Ambien) Start Date: 12/02/17 Stop Date: 12/04/17 Status: Discontinued amitriptyline 25 mg, 1 tab, Route: PO, Drug form: TAB, Bedtime, Dosing Weight 133.8, kg, Start date: 12/01/17 21:00:00 CDT, Duration: 30 day, Stop date: 12/30/17 21:00:00 CDT Notes: (Same as: Elavil) Start Date: 12/01/17 Stop Date: 12/04/17 Status: Discontinued aspirin 324 mg, 4 tab, Route: CHEW, Drug form: CHEWTAB, ONCE, Dosing Weight 127.273, kg, Priority: STAT, Start date: 11/30/17 21:10:00 CDT, Stop date: 11/30/17 21:10:00 CDT Notes: Take with food. Start Date: 11/30/17 Stop Date: 11/30/17 Status: Completed aspirin 81 mg, 1 tab, Route: PO, Drug form: ECTAB, Daily, Dosing Weight 127.273, kg, Sta rt date: 12/01/17 9:00:00 CDT, Duration: 30 day, Stop date: 12/30/17 9:00:00 CDT Notes: Do not crush or chew.(Same As: Ecotrin) Start Date: 12/01/17 Stop Date: 12/04/17 Status: Discontinued aspirin 81 mg tablet, enteric coated 81 mg, 1 tab, Route: PO, Drug form: ECTAB, Daily, Dosing Weight 133.8, kg, Start date: 12/02/17 9:00:00 CDT, Duration: 30 day, Stop date: 12/31/17 9:00:00 CDT Notes: Do not crush or chew.(Same As: Ecotrin) Start Date: 12/02/17 Stop Date: 12/01/17 Status: Deleted Ativan 1 mg, Route: IVP, Drug form: INJ, ONCE, Dosing Weight 127.273, kg, Priority: STA T, Start date: 11/30/17 19:58:00 CDT, Stop date: 11/30/17 19:58:00 CDT Start Date: 11/30/17 Stop Date: 11/30/17 Status: Completed atorvastatin 20 mg, 2 tab, Route: PO, Drug form: TAB, Bedtime, Dosing Weight 127.273, kg, Sta rt date: 12/01/17 21:00:00 CDT, Duration: 30 day, Stop date: 12/30/17 21:00:00 C DT Notes: (Same As: Lipitor) Start Date: 12/01/17 Stop Date: 12/04/17 Status: Discontinued atorvastatin 20 mg oral tablet 20 mg=1 tab, PO, Bedtime, X 30 day, # 30 tab, 0 Refill(s), Pharmacy: [id number] Start Date: 12/04/17 Stop Date: 01/03/18 Status: Ordered carvedilol 12.5 mg, 1 tab, Route: PO, Drug form: TAB, Q12H, Dosing Weight 133.8, kg, Start date: 12/01/17 21:00:00 CDT, Duration: 30 day, Stop date: 12/31/17 9:00:00 CDT Notes: Give with food. (Same As: Coreg) Start Date: 12/01/17 Stop Date: 12/04/17 Status: Discontinued Dextrose 50% Syringe 25 gm, 50 mL, Route: IVP, Drug Form: INJ, Dosing Weight 133.8, kg, PRN, PRN Bloo d Glucose Results, Start date: 12/01/17 0:29:00 CDT, Duration: 30 day, Stop date : 12/31/17 0:28:00 CDT Start Date: 12/01/17 Stop Date: 12/04/17 Status: Discontinued Dextrose 50% Syringe 12.5 gm, 25 mL, Route: IVP, Drug Form: INJ, Dosing Weight 133.8, kg, PRN, PRN Bl ood Glucose Results, Start date: 12/01/17 0:29:00 CDT, Duration: 30 day, Stop da te: 12/31/17 0:28:00 CDT Start Date: 12/01/17 Stop Date: 12/04/17 Status: Discontinued DuoNeb inhalation solution 3 ml, Route: NEB, Drug Form: SOLN, Dosing Weight 133.8, kg, Q6H, PRN Respiratory Protocol, Start date: 11/30/17 23:29:00 CDT, Duration: 30 day, Stop date: 12/30 23:28:00 CDT Notes: (Same as: Duoneb) Start Date: 11/30/17 Stop Date: 12/04/17 Status: Discontinued enoxaparin 40 mg, 0.4 mL, Route: SUB-Q, Drug form: INJ, [id number], Dosing Weight 127.273, kg , Start date: 11/30/17 22:00:00 CDT, Duration: 30 day, Stop date: 12/29/17 22:00 :00 CDT Notes: (Same as: Lovenox) Start Date: 11/30/17 Stop Date: 12/04/17 Status: Discontinued glucagon 1 mg, Route: IM, Drug form: PDR/INJ, PRN, Dosing Weight 133.8, kg, PRN Blood Glu cose Results, Start date: 12/01/17 0:29:00 CDT, Duration: 30 day, Stop date: 0:28:00 CDT Start Date: 12/01/17 Stop Date: 12/04/17 Status: Discontinued hydrALAZINE 10 mg, 0.5 mL, Route: IVP, Drug form: INJ, Q4H, Dosing Weight 133.8, kg, PRN Hyp ertension, Start date: 12/01/17 18:38:00 CDT, Duration: 30 day, Stop date: 12/31 18:37:00 CDT Notes: (Same as: Apresoline)Push over 5 minutes Start Date: 12/01/17 Stop Date: 12/04/17 Status: Discontinued hydrocortisone sodium phosphate INJ 40 mg, 0.8 mL, Route: IVP, Drug form: PDR/INJ, Q6H, Dosing Weight 133.8, kg, Sta rt date: 12/01/17 0:00:00 CDT, Duration: 30 day, Stop date: 12/30/17 18:00:00 CD T Notes: (Same as: Solu-CORTEF) Start Date: 12/01/17 Stop Date: 12/01/17 Status: Discontinued insulin lispro 5 unit, 0.05 mL, Route: SUB-Q, Drug form: SOLN, TID-Before Meals, Dosing Weight 133.8, kg, PRN Blood Glucose Results, Start date: 12/01/17 0:29:00 CDT, Duration : 30 day, Stop date: 12/31/17 0:28:00 CDT Notes: (Same as: Humalog ) Roll in palms of hands gently; Do not shake `vigorou sly. "Single Patient Use Only " WASTE: F/P - Black; E - [facility] [employer] [address] able for 28 days at room temperature.Expires in days from Da te Start Date: 12/01/17 Stop Date: 12/04/17 Status: Discontinued insulin lispro 4 unit, 0.04 mL, Route: SUB-Q, Drug form: SOLN, TID-Before Meals, Dosing Weight 133.8, kg, PRN Blood Glucose Results, Start date: 12/01/17 0:29:00 CDT, Duration : 30 day, Stop date: 12/31/17 0:28:00 CDT Notes: (Same as: Humalog ) Roll in palms of hands gently; Do not shake `vigorou sly. "Single Patient Use Only " WASTE: F/P - Black; E - [facility] [address] [address] able for 28 days at room temperature.Expires in days from Da te Start Date: 12/01/17 Stop Date: 12/04/17 Status: Discontinued insulin lispro 4 unit, 0.04 mL, Route: SUB-Q, Drug form: SOLN, Bedtime, Dosing Weight 133.8, kg , PRN Blood Glucose Results, Start date: 12/01/17 0:29:00 CDT, Duration: 30 day, Stop date: 12/31/17 0:28:00 CDT Notes: (Same as: Humalog ) Roll in palms of hands gently; Do not shake `vigorou sly. "Single Patient Use Only " WASTE: F/P - Black; E - [facility] [address] [address] able for 28 days at room temperature.Expires in days from Da te Start Date: 12/01/17 Stop Date: 12/04/17 Status: Discontinued insulin lispro 3 unit, 0.03 mL, Route: SUB-Q, Drug form: SOLN, Bedtime, Dosing Weight 133.8, kg , PRN Blood Glucose Results, Start date: 12/01/17 0:29:00 CDT, Duration: 30 day, Stop date: 12/31/17 0:28:00 CDT Notes: (Same as: Humalog ) Roll in palms of hands gently; Do not shake `vigorou sly. "Single Patient Use Only " WASTE: F/P - Black; E - [facility] [address] [address] able for 28 days at room temperature.Expires in days from Da te Start Date: 12/01/17 Stop Date: 12/04/17 Status: Discontinued insulin lispro 2 unit, 0.02 mL, Route: SUB-Q, Drug form: SOLN, Bedtime, Dosing Weight 133.8, kg , PRN Blood Glucose Results, Start date: 12/01/17 0:29:00 CDT, Duration: 30 day, Stop date: 12/31/17 0:28:00 CDT Notes: (Same as: Humalog ) Roll in palms of hands gently; Do not shake `vigorou sly. "Single Patient Use Only " WASTE: F/P - Black; E - [facility] [address] [address] able for 28 days at room temperature.Expires in days from Da te Start Date: 12/01/17 Stop Date: 12/04/17 Status: Discontinued insulin lispro 1 unit, 0.01 mL, Route: SUB-Q, Drug form: SOLN, Bedtime, Dosing Weight 133.8, kg , PRN Blood Glucose Results, Start date: 12/01/17 0:29:00 CDT, Duration: 30 day, Stop date: 12/31/17 0:28:00 CDT Notes: (Same as: Humalog ) Roll in palms of hands gently; Do not shake `vigorou sly. "Single Patient Use Only " WASTE: F/P - Black; E - [facility] [address] [address] able for 28 days at room temperature.Expires in days from Da te Start Date: 12/01/17 Stop Date: 12/04/17 Status: Discontinued insulin lispro 2 unit, 0.02 mL, Route: SUB-Q, Drug form: SOLN, TID-Before Meals, Dosing Weight 133.8, kg, PRN Blood Glucose Results, Start date: 12/01/17 0:29:00 CDT, Duration : 30 day, Stop date: 12/31/17 0:28:00 CDT Notes: (Same as: Humalog ) Roll in palms of hands gently; Do not shake `vigorou sly. "Single Patient Use Only " WASTE: F/P - Black; E - [facility] [address] able for 28 days at room temperature.Expires in days from Da te Start Date: 12/01/17 Stop Date: 12/04/17 Status: Discontinued insulin lispro 1 unit, 0.01 mL, Route: SUB-Q, Drug form: SOLN, TID-Before Meals, Dosing Weight 133.8, kg, PRN Blood Glucose Results, Start date: 12/01/17 0:29:00 CDT, Duration : 30 day, Stop date: 12/31/17 0:28:00 CDT Notes: (Same as: Humalog ) Roll in palms of hands gently; Do not shake `vigorou sly. "Single Patient Use Only " WASTE: F/P - Black; E - [facility] [address] [address] able for 28 days at room temperature.Expires in days from Da te Start Date: 12/01/17 Stop Date: 12/04/17 Status: Discontinued insulin lispro 3 unit, 0.03 mL, Route: SUB-Q, Drug form: SOLN, TID-Before Meals, Dosing Weight 133.8, kg, PRN Blood Glucose Results, Start date: 12/01/17 0:29:00 CDT, Duration : 30 day, Stop date: 12/31/17 0:28:00 CDT Notes: (Same as: Humalog ) Roll in palms of hands gently; Do not shake `lázarou sly. "Single Patient Use Only " WASTE: F/P - Black; E - [facility] [address] able for 28 days at room temperature.Expires in days from Da te Start Date: 12/01/17 Stop Date: 12/04/17 Status: Discontinued Lasix 60 mg, 6 mL, Route: IV, Drug form: INJ, Q8Hnow, Dosing Weight 127.273, kg, Start date: 11/30/17 22:00:00 CDT, Duration: 30 day, Stop date: 12/30/17 14:00:00 CDT Notes: (Same as: Lasix) MEDICATION WASTE Product Size: 40 mgProduct Was leeanne: ___ mg Start Date: 11/30/17 Stop Date: 12/04/17 Status: Discontinued Lasix 40 mg, 4 mL, Route: IVP, Drug form: INJ, ONCE, Dosing Weight 127.273, kg, Priori ty: STAT, Start date: 11/30/17 20:08:00 CDT, Stop date: 11/30/17 20:08:00 CDT Notes: (Same as: Lasix) MEDICATION WASTE Product Size: 40 mgProduct Was leeanne: ___ mg Start Date: 11/30/17 Stop Date: 11/30/17 Status: Completed Lasix 40 mg oral tablet 40 mg=1 tab, PO, BID, X 30 day, # 60 tab, 1 Refill(s), Pharmacy: [facility] [id number] Start Date: 12/04/17 Stop Date: 02/02/18 Status: Ordered metFORMIN 500 mg oral tablet 500 mg=1 tab, PO, BID-Meals, X 30 day, # 60 tab, 0 Refill(s), Pharmacy: [facility] [id number] Start Date: 12/04/17 Stop Date: 01/03/18 Status: Ordered metoprolol 5 mg/5 ml INJ 5 mg, 5 mL, Route: IV, Drug form: INJ, Q6H, Dosing Weight 133.8, kg, PRN Tachyca rdia, Start date: 12/01/17 18:38:00 CDT, Duration: 30 day, Stop date: 12/31/17 1 8:37:00 CDT Notes: (Same as: Lopressor)Push over 2 minutes Start Date: 12/01/17 Stop Date: 12/04/17 Status: Discontinued MiraLax 17 gm, 1 pkt, Route: PO, Drug form: PWDR, Daily, Dosing Weight 133.8, kg, Start date: 12/01/17 16:00:00 CDT, Duration: 30 day, Stop date: 12/31/17 9:00:00 CDT Notes: Dissolve in 8 oz of water or juice.(Same as: Miralax) Start Date: 12/01/17 Stop Date: 12/04/17 Status: Discontinued morphine Sulfate 4 mg, Route: IVP, ONCE, Dosing Weight 127.273, kg, Priority: STAT, Start date: 0 11/30/17 19:59:00 CDT, Stop date: 11/30/17 19:59:00 CDT Start Date: 11/30/17 Stop Date: 11/30/17 Status: Completed Nebulizer 1 ea, MISC, ONCALL, # 1 ea, 0 Refill(s) Start Date: 12/04/17 Status: Ordered nitroglycerin 0.4 mg sublingual tablet 0.4 mg, 1 tab, Route: SL, Drug form: TAB, Q5Min, Dosing Weight 133.8, kg, PRN Ch est Pain, Start date: 12/01/17 18:38:00 CDT, Duration: 30 day, Stop date: 18:37:00 CDT Notes: (Same as:Nitroquick, Nitrostat)"Do Not Crush" Sublingual tablet Start Date: 12/01/17 Stop Date: 12/04/17 Status: Discontinued [place] 5/325 oral tablet 1 tab, Route: PO, Drug Form: TAB, Dosing Weight 133.8, kg, Q4H, PRN Pain Score 1 -3, Start date: 11/30/17 23:36:00 CDT, Duration: 30 day, Stop date: 12/30/17 23: 35:00 CDT Notes: (Same as: [place] 325/5) Do not exceed 4gm/day of acetaminophen. Start Date: 11/30/17 Stop Date: 12/04/17 Status: Discontinued ondansetron 4 mg, 2 mL, Route: IVP, Drug form: INJ, Q6H, Dosing Weight 127.273, kg, PRN Naus ea & Vomiting, Start date: 11/30/17 21:35:00 CDT, Duration: 30 day, Stop date: 12/30/17 21:34:00 CDT Notes: (Same as: Arin) MEDICATION WASTE Product Size: 4 mgProduct Was leeanne: ___ mg Start Date: 11/30/17 Stop Date: 12/04/17 Status: Discontinued potassium chloride 10 mEq oral capsule, extended release 10 mEq=1 cap, PO, Daily, # 30 cap, 0 Refill(s), Pharmacy: [id number] Start Date: 12/04/17 Status: Ordered potassium chloride 20 mEq oral tablet, extended release 20 mEq=1 tab, PO, Daily, X 30 day, # 30 tab, 0 Refill(s), Pharmacy: [facility] [id number] Start Date: 12/04/17 Stop Date: 01/03/18 Status: Ordered Saline Flush 0.9% 10 mL, Route: IVP, Drug Form: INJ, Dosing Weight 127.273, kg, PRN, PRN Line Flus h, Start date: 11/30/17 19:46:00 CDT, Duration: 30 day, Stop date: 12/30/17 19:4 5:00 CDT Notes: (Same as: BD Posiflush) Start Date: 11/30/17 Stop Date: 12/04/17 Status: Discontinued Sea Mist Nasal [place] 0.65% spray 2 spray, Route: NASAL, BID, Drug form: SOLN, Start date: 12/02/17 18:30:00 CDT, Duration: 2 day, Stop date: 12/04/17 17:00:00 CDT Notes: (Same as: [place], Deep Sea Nasal [place]). Start Date: 12/02/17 Stop Date: 12/04/17 Status: Discontinued tramadol 50 mg oral tablet 50 mg, 1 tab, Route: PO, Drug form: TAB, Q6H, Dosing Weight 127.273, kg, PRN Nuno n Score 1-3, Start date: 11/30/17 22:58:00 CDT, Duration: 30 day, Stop date: 22:57:00 CDT Notes: Not to exceed 400mg/day. (Same As: Ultram) Start Date: 11/30/17 Stop Date: 12/04/17 Status: Discontinued valsartan 80 mg, 1 tab, Route: PO, Drug form: TAB, Daily, Dosing Weight 133.8, kg, Start d ate: 12/02/17 9:00:00 CDT, Duration: 30 day, Stop date: 12/31/17 9:00:00 CDT Notes: Same as Michelle Start Date: 12/02/17 Stop Date: 12/03/17 Status: Discontinued valsartan 160 mg, 1 tab, Route: PO, Drug form: TAB, Daily, Dosing Weight 133.8, kg, Start date: 12/03/17 9:00:00 CDT, Duration: 30 day, Stop date: 01/01/18 9:00:00 CDT Notes: Same as Michelle Start Date: 12/03/17 Stop Date: 12/04/17 Status: Discontinued valsartan 160 mg oral tablet 160 mg=1 tab, PO, Daily, X 30 day, # 30 tab, 0 Refill(s), Pharmacy: [facility] [id number] Start Date: 12/04/17 Stop Date: 01/03/18 Status: Ordered Zofran ODT 4 mg, Route: PO, Drug form: TABDIS, ONCE, Dosing Weight 127.273, kg, Priority: S TAT, Start date: 11/30/17 19:59:00 CDT, Stop date: 11/30/17 19:59:00 CDT Start Date: 11/30/17 Stop Date: 11/30/17 Status: Completed Results ELECTROLYTES 1 2 3 Most recent to oldest [Reference Range]: 138 mEq/L (12/04/17 3:36 AM) 139 mEq/L (12/03/17 3:48 AM) 139 mEq/L (12/02/17 3:45 AM) Sodium Lvl [135-145 mEq/L] 3.7 mEq/L (12/04/17 3:36 AM) 4.0 mEq/L (12/03/17 3:48 AM) 3.9 mEq/L (12/02/17 3:45 AM) Potassium Lvl [3.5-5.1 mEq/L] 99 mEq/L (12/04/17 3:36 AM) 99 mEq/L (12/03/17 3:48 AM) 98 mEq/L (12/02/17 3:45 AM) Chloride Lvl [95-109 mEq/L] 34 mEq/L *HI* (12/04/17 3:36 AM) 33 mEq/L *HI* (12/03/17 3:48 AM) 36 mEq/L *HI* (12/02/17 3:45 AM) CO2 [24-32 mEq/L] 8.7 mEq/L *LOW* (12/04/17 3:36 AM) 11.0 mEq/L (12/03/17 3:48 AM) 8.9 mEq/L *LOW* (12/02/17 3:45 AM) AGAP [10.0-20.0 mEq/L] CHEM PANEL 1 2 3 Most recent to oldest [Reference Range]: 1.14 mg/dL (12/04/17 3:36 AM) 1.30 mg/dL (12/03/17 3:48 AM) 1.19 mg/dL (12/02/17 3:45 AM) Creatinine Lvl [0.50-1.40 mg/dL] 86 mL/min/1.73m2 1 *NA* (12/04/17 3:36 AM) 73 mL/min/1.73m2 2 *NA* (12/03/17 3:48 AM) 81 mL/min/1.73m2 3 *NA* (12/02/17 3:45 AM) eGFR 25 mg/dL *HI* (12/04/17 3:36 AM) 28 mg/dL *HI* (12/03/17 3:48 AM) 23 mg/dL *HI* (12/02/17 3:45 AM) BUN [7-22 mg/dL] 16 (12/01/17 5:24 AM) 14 (11/30/17 7:59 PM) B/C Ratio [6-25] 153 mg/dL *HI* (12/04/17 3:36 AM) 153 mg/dL *HI* (12/03/17 3:48 AM) 167 mg/dL *HI* (12/02/17 3:45 AM) Glucose Lvl [70-99 mg/dL] 8.6 g/dL *HI* (12/01/17 5:24 AM) 8.4 g/dL (11/30/17 7:59 PM) Total Protein [6.4-8.4 g/dL] 3.8 g/dL (12/01/17 5:24 AM) 3.8 g/dL (11/30/17 7:59 PM) Albumin Lvl [3.5-5.0 g/dL] 4.8 g/dL *HI* (12/01/17 5:24 AM) 4.6 g/dL *HI* (11/30/17 7:59 PM) Globulin [2.7-4.2 g/dL] 0.8 (12/01/17 5:24 AM) 0.8 (11/30/17 7:59 PM) A/G Ratio [0.7-1.6] 8.8 mg/dL (12/04/17 3:36 AM) 8.8 mg/dL (12/03/17 3:48 AM) 9.0 mg/dL (12/02/17 3:45 AM) Calcium Lvl [8.5-10.5 mg/dL] 2.1 mg/dL (12/04/17 3:36 AM) 2.1 mg/dL (12/03/17 3:48 AM) 2.2 mg/dL (12/02/17 3:45 AM) Magnesium Lvl [1.8-2.4 mg/dL] 30 unit/L (12/01/17 5:24 AM) 30 unit/L (11/30/17 7:59 PM) ALT [0-65 unit/L] 16 unit/L (12/01/17 5:24 AM) 20 unit/L (11/30/17 7:59 PM) AST [0-37 unit/L] 79 unit/L (12/01/17 5:24 AM) 83 unit/L (11/30/17 7:59 PM) Alk Phos [39-136 unit/L] 0.4 mg/dL (12/01/17 5:24 AM) 0.3 mg/dL (11/30/17 7:59 PM) Bili Total [0.2-1.3 mg/dL] 1Result Comment: The eGFR is calculated using [...] 3 Most recent to oldest [Reference Range]: 185 unit/L (12/01/17 5:24 AM) 189 unit/L (11/30/17 10:48 PM) 217 unit/L *HI* (11/30/17 7:59 PM) Total CK [12-191 unit/L] 3.8 ng/mL *HI* (12/01/17 5:24 AM) 3.5 ng/mL (11/30/17 10:48 PM) 4.0 ng/mL *HI* (11/30/17 7:59 PM) CK MB [0.5-3.6 ng/mL] 2.1 (12/01/17 5:24 AM) 1.9 (11/30/17 10:48 PM) 1.8 (11/30/17 7:59 PM) CK MB Index [0.0-2.5] 0.03 ng/mL (12/01/17 5:24 AM) 0.04 ng/mL (11/30/17 10:48 PM) 0.05 ng/mL (11/30/17 7:59 PM) Troponin-I [0.00-0.40 ng/mL] 28 pg/mL (12/02/17 3:45 AM) BNP [<=100 pg/mL] 318 pg/mL *HI* (11/30/17 7:59 PM) proBNP [0-125 pg/mL] SPECIAL CHEMISTRY 1 2 3 Most recent to oldest [Reference Range]: 7.3 % *HI* (12/01/17 5:24 AM) Hgb A1C [<=5.6 %] HEMATOLOGY 1 2 3 Most recent to oldest [Reference Range]: 7.0 K/CMM (12/01/17 5:24 AM) 7.6 K/CMM (11/30/17 7:59 PM) WBC [3.7-10.4 K/CMM] 4.89 M/CMM (12/01/17 5:24 AM) 4.93 M/CMM (11/30/17 7:59 PM) RBC [4.70-6.10 M/CMM] 14.8 g/dL (12/01/17:24 AM) 14.8 g/dL (11/30/17 7:59 PM) Hgb [14.0-18.0 g/dL] 44.8 % (12/01/17:24 AM) 44.6 % (11/30/17 7:59 PM) Hct [42.0-54.0 %] 91.7 fL (12/01/17:24 AM) 90.6 fL (11/30/17:59 PM) MCV [80.0-94.0 fL] 30.2 pg (12/01/17:24 AM) 30.1 pg (11/30/17:59 PM) MCH [27.0-31.0 pg] 33.0 g/dL (12/01/17:24 AM) 33.2 g/dL (11/30/17:59 PM) MCHC [32.0-36.0 g/dL] 14.5 % (12/01/17:24 AM) 14.4 % (11/30/17 7:59 PM) RDW [11.5-14.5 %] 7.8 fL (12/01/17:24 AM) 7.9 fL (11/30/17 7:59 PM) MPV [7.4-10.4 fL] 273 K/CMM (12/01/17:24 AM) 266 K/CMM (11/30/17:59 PM) Platelet [133-450 K/CMM] 58.6 % (12/01/17:24 AM) 52.7 % (11/30/17 7:59 PM) Segs [45.0-75.0 %] 36.7 % (12/01/17:24 AM) 38.5 % (11/30/17 7:59 PM) Lymphocytes [20.0-40.0 %] 4.1 % (12/01/17:24 AM) 7.0 % (11/30/17 7:59 PM) Monocytes [2.0-12.0 %] 0.3 % (4/28/18 5:24 AM) 1.3 % (11/30/17 7:59 PM) Eosinophils [0.0-4.0 %] 0.3 % (12/01/17 5:24 AM) 0.5 % (11/30/17 7:59 PM) Basophils [0.0-1.0 %] 4.1 K/CMM (12/01/17 5:24 AM) 4.0 K/CMM (11/30/17 7:59 PM) Segs-Bands # [1.5-8.1 K/CMM] 2.6 K/CMM (12/01/17 5:24 AM) 2.9 K/CMM (11/30/17 7:59 PM) Lymphocytes # [1.0-5.5 K/CMM] 0.3 K/CMM (12/01/17 5:24 AM) 0.5 K/CMM (11/30/17 7:59 PM) Monocytes # [0.0-0.8 K/CMM] 0.1 K/CMM (11/30/17 7:59 PM) Eosinophils # [0.0-0.5 K/CMM] 13.3 seconds (12/01/17 5:24 AM) 13.1 seconds (11/30/17 7:59 PM) PT [12.0-14.7 seconds] 1.01 (12/01/17 5:24 AM) 0.99 (11/30/17 7:59 PM) INR [0.85-1.17] 30.7 seconds (12/01/17 5:24 AM) 28.9 seconds (11/30/17 7:59 PM) PTT [22.9-35.8 seconds] Immunizations No data available for this section Procedures Procedure Date Related Diagnosis Body Site Status Ankle joint operations Completed Knee joint operation Completed Social History Social History Type Response Smoking Status Never smoker; Exposure to Tobacco Smoke None; Cigarette Smoking Last 365 Days No; Reg Smoking Cessation Counseling No entered on: 11/30/17 Assessment and Plan Extracted from: Title: [facility] Author: Nitish Gutiérrez DO Date: 12/04/17 Impression and Plan 1. Acute on chronic systolic heart failure with an EF of 40% to 45%. responding well to diuretic therapy- continue gentle diuresis. valsartan and caredilol as tolerated - HF education exercise program and diet education 2. Nonobstructive mild coronary artery disease per heart catheterization in November of 2017. aggressive atherosclerotic risk factor modification 3. Hypertension. controlled- continue current regimen 4. Obesity. metabolic syndrome - dietary consult Continue current CV meds Discussed fluid restriction Needs CPAP as outpatient The patient was seen and examined by me with the resident/[employer]KE WORK[employer]/PA and I agree with the History/Exam documented. Extracted from: Title: General Admission H&P * Author: Deon Gaitan Date: 11/30/17 Joshua CAMARA Impression and Plan 52-year-old male with history of hypertension, obesity, systolic congestive failure (40-45 %), recently discharged from the hospital on November 05 after being treated for acute hypoxic and hypercapnic respiratory failure, new onset systolic congestive heart failure. Patient again came back complaining of shortness of breath. 1. SOB. Pulmonary edema. Due to 2. 2. Acute on chronic systolic CHF. EF 40-45 %. S/p left cardiac cath, non obstructive cardiomyopathy. 3. HTN controlled. 4. Hyperglycema. No history of DM. Probable DM. Send HbAC. [place]. Insuline sliding scale. 5. Obesity. 6. DVT prophylaxis. Lovenox SQ.
--- OUTSIDE RECORDS SUMMARY | 2018-06-07 22:17 | XMS REPORT | Summary of Care ---
Author Author [facility] Organization [facility] Address Unknown Phone Unavailable Encounter HQ Too(ALEX) [id number] Date(s): 01/06/18 - 01/09/18 [facility] [address] [place] [address]- [facility] [phone] Discharge Disposition: Home or Self Care Attending Physician: Sunny Cabrera MD Admitting Physician: Sunny Cabrera MD Vital Signs 1 2 3 Most recent to oldest [Reference Range]: 175.26 cm (01/06/18 6:31 AM) 180.34 cm (01/06/18 3:40 AM) Height 131.7 kg (01/08/18 4:29 AM) 135.4 kg (01/07/18 2:32 PM) Current Weight 98.4 DegF (01/09/18 11:27 AM) 98.1 DegF (01/09/18 7:40 AM) 97.8 DegF (01/09/18 3:40 AM) Temperature Oral [96.4-99.1 DegF] 133/83 mmHg (01/09/18 11:27 AM) 139/96 mmHg (01/09/18 7:40 AM) 139/87 mmHg (01/09/18 3:40 AM) Blood Pressure [90-140/60-90 mmHg] 18 BRMIN (01/09/18 11:27 AM) 18 BRMIN (01/09/18 7:40 AM) 16 BRMIN (01/09/18 6:48 AM) Respiratory Rate [14-20 BRMIN] 78 bpm (01/09/18 11:27 AM) 75 bpm (01/09/18 7:40 AM) 76 bpm (01/09/18 3:40 AM) Peripheral Pulse Rate [60-100 bpm] 134.4 kg (6/3/18 6:31 AM) 134 kg (01/06/18 3:40 AM) Weight 43.76 m2 (01/06/18 6:31 AM) 41.2 m2 (01/06/18 3:40 AM) Body Mass Index Problem List Condition Effective Dates Status Health Status Informant Hypertension(Confirm Resolved ed) Type II diabetes Active mellitus poorly controlled(Confirmed ) Allergies, Adverse Reactions, Alerts Substance Reaction Severity Status penicillins Active lisinopril Active Medications albuterol 0.083% inhalation solution 10 mg, 12.05 mL, Route: NEB, Drug form: SOLN, Continuous, Dosing Weight 134, kg, Priority: STAT, Start date: 01/06/18 5:38:00 CDT, Duration: 30 day, Stop date: 02/05/18 5:37:00 CDT Notes: SEE RT DOCUMENTATION (Same as: Donnell) Start Date: 01/06/18 Stop Date: 01/06/18 Status: Completed albuterol-ipratropium 2.5-0.5 mg inhalation solution 3 mL, Route: NEB, Drug Form: SOLN, Dosing Weight 134, kg, ONCE, STAT, Start date : 01/06/18 5:38:00 CDT, Stop date: 01/06/18 5:38:00 CDT Notes: (Same as: Duoneb) Start Date: 01/06/18 Stop Date: 01/06/18 Status: Completed albuterol-ipratropium 2.5-0.5 mg inhalation solution 3 mL, Route: NEB, Drug Form: SOLN, Dosing Weight 134.4, kg, RQ6H, Start date: 8:00:00 CDT, Duration: 30 day, Stop date: 02/05/18 2:00:00 CDT Notes: (Same as: Duoneb) Start Date: 01/06/18 Stop Date: 01/09/18 Status: Discontinued amitriptyline 25 mg, 1 tab, Route: PO, Drug form: TAB, Bedtime, Dosing Weight 134.4, kg, Start date: 01/07/18 21:00:00 CDT, Duration: 30 day, Stop date: 02/05/18 21:00:00 CDT Notes: (Same as: Elavil) Start Date: 01/07/18 Stop Date: 01/09/18 Status: Discontinued aspirin 325 mg, 1 tab, Route: PO, Drug form: ECTAB, ONCE, Dosing Weight 134, kg, Priorit y: STAT, Start date: 01/06/18 5:09:00 CDT, Stop date: 01/06/18 5:09:00 CDT Notes: (Do Not Crush) Do not crush or chew. Start Date: 01/06/18 Stop Date: 01/06/18 Status: Completed atorvastatin 20 mg, 2 tab, Route: PO, Drug form: TAB, Bedtime, Dosing Weight 134.4, kg, Start date: 01/07/18 21:00:00 CDT, Duration: 30 day, Stop date: 02/05/18 21:00:00 CDT Notes: (Same As: Lipitor) Start Date: 01/07/18 Stop Date: 01/09/18 Status: Discontinued budesonide 0.5 mg/2 mL inhalation suspension 0.5 mg, 2 mL, Route: NEB, Drug form: SUSP, RQ12H, Dosing Weight 134.4, kg, Start date: 01/06/18 6:52:00 CDT, Stop date: 02/04/18 20:00:00 CDT, <12 years; Pediatric Dosing Notes: (Same As: Pulmicort) Start Date: 01/06/18 Stop Date: 01/09/18 Status: Discontinued carvedilol 12.5 mg, 1 tab, Route: PO, Drug form: TAB, Q12H, Dosing Weight 134.4, kg, Start date: 01/07/18 21:00:00 CDT, Duration: 30 day, Stop date: 02/06/18 9:00:00 CDT Notes: Give with food. (Same As: Coreg) Start Date: 01/07/18 Stop Date: 01/07/18 Status: Discontinued carvedilol 25 mg, 2 tab, Route: PO, Drug form: TAB, Q12H, Dosing Weight 134.4, kg, Start da te: 01/08/18 9:00:00 CDT, Duration: 30 day, Stop date: 02/06/18 21:00:00 CDT Notes: Give with food. (Same As: Coreg) Start Date: 01/08/18 Stop Date: 01/09/18 Status: Discontinued carvedilol 25 mg oral tablet 25 mg=1 tab, PO, Q12H, # 60 tab, 0 Refill(s), Pharmacy: [id number] Start Date: 01/09/18 Status: Ordered Dextrose 50% Syringe 25 gm, 50 mL, Route: IVP, Drug Form: INJ, Dosing Weight 134.4, kg, PRN, PRN Bloo d Glucose Results, Start date: 01/06/18 16:46:00 CDT, Duration: 30 day, Stop reena e: 02/05/18 16:45:00 CDT Start Date: 01/06/18 Stop Date: 01/09/18 Status: Discontinued Dextrose 50% Syringe 12.5 gm, 25 mL, Route: IVP, Drug Form: INJ, Dosing Weight 134.4, kg, PRN, PRN Bl ood Glucose Results, Start date: 01/06/18 16:46:00 CDT, Duration: 30 day, Stop d ate: 02/05/18 16:45:00 CDT Start Date: 01/06/18 Stop Date: 01/09/18 Status: Discontinued DuoNeb inhalation solution 3 ml, Route: NEB, Drug Form: SOLN, Dosing Weight 134.4, kg, PRN, PRN Respiratory Pathway, Start date: 01/06/18 6:52:00 CDT, Duration: 30 day, Stop date: 02/05/18 6:51:00 CDT Notes: (Same as: Duoneb) Start Date: 01/06/18 Stop Date: 01/09/18 Status: Discontinued enoxaparin 40 mg, 0.4 mL, Route: SUB-Q, Drug form: INJ, [id number], Dosing Weight 134.4, kg, Consider for obese patients, Start date: 01/06/18 7:00:00 CDT, Duration: 30 day, Stop date: 02/04/18 19:00:00 CDT Notes: (Same as: Lovenox) Start Date: 01/06/18 Stop Date: 01/09/18 Status: Discontinued glucagon 1 mg, Route: IM, Drug form: PDR/INJ, PRN, Dosing Weight 134.4, kg, PRN Blood Glu cose Results, Start date: 01/06/18 16:46:00 CDT, Duration: 30 day, Stop date: 16:45:00 CDT Start Date: 01/06/18 Stop Date: 01/09/18 Status: Discontinued hydrALAZINE 10 mg, 0.5 mL, Route: IVP, Drug form: INJ, Q6H, Dosing Weight 134.4, kg, PRN Hyp ertension, Start date: 01/07/18 13:56:00 CDT, Duration: 30 day, Stop date: 02/06 13:55:00 CDT Notes: (Same as: Apresoline)Push over 5 minutes Start Date: 01/07/18 Stop Date: 01/09/18 Status: Discontinued insulin lispro 3 unit, 0.03 mL, Route: SUB-Q, Drug form: SOLN, TID-Before Meals, Dosing Weight 134.4, kg, PRN Blood Glucose Results, Start date: 01/07/18 11:35:00 CDT, Duratio n: 30 day, Stop date: 02/06/18 11:34:00 CDT Notes: (Same as: Humalog ) Roll in palms of hands gently; Do not shake `vigorou sly. "Single Patient Use Only " WASTE: F/P - Black; E - [facility] [address] able for 28 days at room temperature.Expires in days from Da te Start Date: 01/07/18 Stop Date: 01/09/18 Status: Discontinued insulin lispro 6 unit, 0.06 mL, Route: SUB-Q, Drug form: SOLN, TID-Before Meals, Dosing Weight 134.4, kg, PRN Blood Glucose Results, Start date: 01/07/18 11:35:00 CDT, Duratio n: 30 day, Stop date: 02/06/18 11:34:00 CDT Notes: (Same as: Humalog ) Roll in palms of hands gently; Do not shake `vigorou sly. "Single Patient Use Only " WASTE: F/P - Black; E - [facility] [address] able for 28 days at room temperature.Expires in days from Da te Start Date: 01/07/18 Stop Date: 01/09/18 Status: Discontinued insulin lispro 9 unit, 0.09 mL, Route: SUB-Q, Drug form: SOLN, TID-Before Meals, Dosing Weight 134.4, kg, PRN Blood Glucose Results, Start date: 01/07/18 11:35:00 CDT, Duratio n: 30 day, Stop date: 02/06/18 11:34:00 CDT Notes: (Same as: Humalog ) Roll in palms of hands gently; Do not shake `vigorou sly. "Single Patient Use Only " WASTE: F/P - Black; E - [facility] [address] able for 28 days at room temperature.Expires in days from Da te Start Date: 01/07/18 Stop Date: 01/09/18 Status: Discontinued insulin lispro 12 unit, 0.12 mL, Route: SUB-Q, Drug form: SOLN, TID-Before Meals, Dosing Weight 134.4, kg, PRN Blood Glucose Results, Start date: 01/07/18 11:35:00 CDT, Durati on: 30 day, Stop date: 02/06/18 11:34:00 CDT Notes: (Same as: Humalog ) Roll in palms of hands gently; Do not shake `vigorou sly. "Single Patient Use Only " WASTE: F/P - Black; E - [facility] [address] able for 28 days at room temperature.Expires in days from Da te Start Date: 01/07/18 Stop Date: 01/09/18 Status: Discontinued insulin lispro 15 unit, 0.15 mL, Route: SUB-Q, Drug form: SOLN, TID-Before Meals, Dosing Weight 134.4, kg, PRN Blood Glucose Results, Start date: 01/07/18 11:35:00 CDT, Durati on: 30 day, Stop date: 02/06/18 11:34:00 CDT Notes: (Same as: Humalog ) Roll in palms of hands gently; Do not shake `vigorou sly. "Single Patient Use Only " WASTE: F/P - Black; E - [facility] [address] able for 28 days at room temperature.Expires in days from Da te Start Date: 01/07/18 Stop Date: 01/09/18 Status: Discontinued insulin lispro 2 unit, 0.02 mL, Route: SUB-Q, Drug form: SOLN, TID-Before Meals, Dosing Weight 134.4, kg, PRN Blood Glucose Results, Start date: 01/06/18 16:46:00 CDT, Duratio n: 30 day, Stop date: 02/05/18 16:45:00 CDT Notes: (Same as: Humalog ) Roll in palms of hands gently; Do not shake `vigorou sly. "Single Patient Use Only " WASTE: F/P - Black; E - [facility] [address] able for 28 days at room temperature.Expires in days from Da te Start Date: 01/06/18 Stop Date: 01/07/18 Status: Discontinued insulin lispro 8 unit, 0.08 mL, Route: SUB-Q, Drug form: SOLN, TID-Before Meals, Dosing Weight 134.4, kg, PRN Blood Glucose Results, Start date: 01/06/18 16:46:00 CDT, Duratio n: 30 day, Stop date: 02/05/18 16:45:00 CDT Notes: (Same as: Humalog ) Roll in palms of hands gently; Do not shake `vigorou sly. "Single Patient Use Only " WASTE: F/P - Black; E - [facility] [address] able for 28 days at room temperature.Expires in days from Da te Start Date: 01/06/18 Stop Date: 01/07/18 Status: Discontinued insulin lispro 4 unit, 0.04 mL, Route: SUB-Q, Drug form: SOLN, TID-Before Meals, Dosing Weight 134.4, kg, PRN Blood Glucose Results, Start date: 01/06/18 16:46:00 CDT, Duratio n: 30 day, Stop date: 02/05/18 16:45:00 CDT Notes: (Same as: Humalog ) Roll in palms of hands gently; Do not shake `vigorou sly. "Single Patient Use Only " WASTE: F/P - Black; E - [facility] [address] able for 28 days at room temperature.Expires in days from Da te Start Date: 01/06/18 Stop Date: 01/07/18 Status: Discontinued insulin lispro 10 unit, 0.1 mL, Route: SUB-Q, Drug form: SOLN, TID-Before Meals, Dosing Weight 134.4, kg, PRN Blood Glucose Results, Start date: 01/06/18 16:46:00 CDT, Duratio n: 30 day, Stop date: 02/05/18 16:45:00 CDT Notes: (Same as: Humalog ) Roll in palms of hands gently; Do not shake `vigorou sly. "Single Patient Use Only " WASTE: F/P - Black; E - [facility] [address] able for 28 days at room temperature.Expires in days from Da te Start Date: 01/06/18 Stop Date: 01/07/18 Status: Discontinued insulin lispro 6 unit, 0.06 mL, Route: SUB-Q, Drug form: SOLN, TID-Before Meals, Dosing Weight 134.4, kg, PRN Blood Glucose Results, Start date: 01/06/18 16:46:00 CDT, Duratio n: 30 day, Stop date: 02/05/18 16:45:00 CDT Notes: (Same as: Humalog ) Roll in palms of hands gently; Do not shake `vigorou sly. "Single Patient Use Only " WASTE: F/P - Black; E - [facility] [address] able for 28 days at room temperature.Expires in days from Da te Start Date: 01/06/18 Stop Date: 01/07/18 Status: Discontinued Lantus 100 units/mL 20 unit, 0.2 mL, Route: SUB-Q, Drug form: SOLN, Daily, Dosing Weight 134.4, kg, Start date: 01/07/18 9:55:00 CDT, Duration: 30 day, Stop date: 02/06/18 9:00:00 CDT Notes: (Same as: Lantus)Do not hold insulin without contacting prescriberWASTE: F/P - Black; E - [facility] "single patient use only" Start Date: 01/07/18 Stop Date: 01/09/18 Status: Discontinued Lasix 40 mg, 4 mL, Route: IVP, Drug form: INJ, Q12H, Dosing Weight 134.4, kg, Start da te: 01/06/18 6:52:00 CDT, Duration: 30 day, Stop date: 02/04/18 21:00:00 CDT Notes: (Same as: Lasix) MEDICATION WASTE Product Size: 40 mgProduct Was leeanne: ___ mg Start Date: 01/06/18 Stop Date: 01/09/18 Status: Discontinued Lasix 40 mg oral tablet 40 mg=1 tab, PO, BID, # 60 tab, 0 Refill(s), Pharmacy: [id number] Start Date: 01/09/18 Stop Date: 02/08/18 Status: Ordered Lasix 40 mg oral tablet 40 mg, 1 tab, Route: PO, Drug form: TAB, BID, Dosing Weight 134.4, kg, Start reena e: 01/09/18 10:00:00 CDT, Duration: 30 day, Stop date: 02/08/18 9:00:00 CDT Notes: (Same as: Lasix) May cause GI upset. Give with food or milk. Start Date: 01/09/18 Stop Date: 01/09/18 Status: Discontinued methylPREDNISolone SODium SUCCinate 40 mg, 1 mL, Route: IVP, Drug form: INJ, Q12H, Dosing Weight 134.4, kg, Start da te: 01/06/18 9:00:00 CDT, Duration: 30 day, Stop date: 02/04/18 21:00:00 CDT Notes: (Same as:Solu-MEDROL, A-Methapred) Start Date: 01/06/18 Stop Date: 01/07/18 Status: Discontinued morphine Sulfate 4 mg, Route: IVP, ONCE, Dosing Weight 142.591, kg, Priority: STAT, Start date: 0 01/06/18 3:36:00 CDT, Stop date: 01/06/18 3:36:00 CDT Start Date: 01/06/18 Stop Date: 01/06/18 Status: Completed Nifedical XL 30 mg, 1 tab, Route: PO, Drug form: ERTAB, Daily, Dosing Weight 134.4, kg, Prior ity: NOW, Start date: 01/08/18 18:06:00 CDT, Duration: 30 day, Stop date: 9:00:00 CDT Notes: (Same as: Adalat CC, Procardia XL) Give on empty stomach. Take 1 hour be fore or 2 hours after meal; "Avoid grapefruit and grapefruit juice". Do not cru sh Start Date: 01/08/18 Stop Date: 01/09/18 Status: Discontinued NIFEdipine 30 mg oral tablet, extended release 30 mg=1 tab, PO, Daily, # 30 tab, 0 Refill(s), Pharmacy: [id number] Start Date: 01/09/18 Stop Date: 02/08/18 Status: Ordered [place] Grass 5/325 oral tablet 1 tab, Route: PO, Drug Form: TAB, Dosing Weight 134.4, kg, Q4H, PRN Pain Score 4 -6, Start date: 01/06/18 11:43:00 CDT, Duration: 30 day, Stop date: 02/05/18 11: 42:00 CDT Notes: (Same as: Lodge Grass 325/5) Do not exceed 4gm/day of acetaminophen. Start Date: 01/06/18 Stop Date: 01/09/18 Status: Discontinued predniSONE 20 mg, 1 tab, Route: PO, Drug form: TAB, Daily, Dosing Weight 134.4, kg, Start d ate: 01/08/18 9:00:00 CDT, Stop date: 02/06/18 9:00:00 CDT Notes: Take with food. Start Date: 01/08/18 Stop Date: 01/09/18 Status: Discontinued predniSONE 20 mg oral tablet 20 mg=1 tab, PO, Daily, X 5 day, # 5 tab, 0 Refill(s), Pharmacy: [id number] Start Date: 01/09/18 Stop Date: 01/14/18 Status: Ordered Saline Flush 0.9% 10 mL, Route: IVP, Drug Form: INJ, Dosing Weight 142.591, kg, PRN, PRN Line Flus h, Start date: 01/06/18 3:20:00 CDT, Duration: 30 day, Stop date: 02/05/18 3:19: 00 CDT Notes: Same as: BD Posiflush Sterile Start Date: 01/06/18 Stop Date: 01/09/18 Status: Discontinued Tylenol 650 mg, 2 tab, Route: PO, Drug form: TAB, Q6H, Dosing Weight 134.4, kg, PRN Pain 1-3/Temp > 100.4 F, Start date: 01/06/18 11:43:00 CDT, Duration: 30 day, Stop date: 02/05/18 11:42:00 CDT Notes: Do not exceed 4 gm/day. (Same as: Tylenol) Start Date: 01/06/18 Stop Date: 01/09/18 Status: Discontinued valsartan 240 mg, 3 tab, Route: PO, Drug form: TAB, Daily, Dosing Weight 134.4, kg, Start date: 01/08/18 9:00:00 CDT, Duration: 30 day, Stop date: 02/06/18 9:00:00 CDT Notes: Same as Michelle Start Date: 01/08/18 Stop Date: 01/09/18 Status: Discontinued valsartan 160 mg, 1 tab, Route: PO, Drug form: TAB, Daily, Dosing Weight 134.4, kg, Start date: 01/07/18 15:00:00 CDT, Duration: 30 day, Stop date: 02/06/18 9:00:00 CDT Notes: Same as Michelle Start Date: 01/07/18 Stop Date: 01/07/18 Status: Discontinued valsartan 80 mg oral tablet 240 mg=3 tab, PO, Daily, # 90 tab, 0 Refill(s), Pharmacy: [id number] Start Date: 01/09/18 Stop Date: 02/08/18 Status: Ordered Zofran 4 mg, Route: IVP, Drug form: INJ, ONCE, Dosing Weight 142.591, kg, Priority: STA T, Start date: 01/06/18 3:36:00 CDT, Stop date: 01/06/18 3:36:00 CDT Start Date: 01/06/18 Stop Date: 01/06/18 Status: Completed Results ELECTROLYTES 1 2 3 Most recent to oldest [Reference Range]: 139 mEq/L (01/09/18 4:50 AM) 138 mEq/L (01/08/18 4:49 AM) 137 mEq/L (01/07/18 5:03 AM) Sodium Lvl [135-145 mEq/L] 4.0 mEq/L (01/09/18 4:50 AM) 3.9 mEq/L (01/08/18 4:49 AM) 4.4 mEq/L (01/07/18 5:03 AM) Potassium Lvl [3.5-5.1 mEq/L] 99 mEq/L (01/09/18 4:50 AM) 98 mEq/L (01/08/18 4:49 AM) 99 mEq/L (01/07/18 5:03 AM) Chloride Lvl [95-109 mEq/L] 33 mEq/L *HI* (01/09/18 4:50 AM) 35 mEq/L *HI* (01/08/18 4:49 AM) 31 mEq/L (01/07/18 5:03 AM) CO2 [24-32 mEq/L] 11.0 mEq/L (01/09/18 4:50 AM) 8.9 mEq/L *LOW* (01/08/18 4:49 AM) 11.4 mEq/L (01/07/18 5:03 AM) AGAP [10.0-20.0 mEq/L] CHEM PANEL 1 2 3 Most recent to oldest [Reference Range]: 1.13 mg/dL (01/09/18 4:50 AM) 1.13 mg/dL (01/08/18 4:49 AM) 1.19 mg/dL (01/07/18 5:03 AM) Creatinine Lvl [0.50-1.40 mg/dL] 87 mL/min/1.73m2 1 *NA* (01/09/18 4:50 AM) 87 mL/min/1.73m2 2 *NA* (01/08/18 4:49 AM) 81 mL/min/1.73m2 3 *NA* (01/07/18 5:03 AM) eGFR 24 mg/dL *HI* (01/09/18 4:50 AM) 27 mg/dL *HI* (01/08/18 4:49 AM) 21 mg/dL (01/07/18 5:03 AM) BUN [7-22 mg/dL] 15 (01/06/18 3:30 AM) B/C Ratio [6-25] 162 mg/dL *HI* (01/09/18 4:50 AM) 187 mg/dL *HI* (01/08/18 4:49 AM) 308 mg/dL *HI* (01/07/18 5:03 AM) Glucose Lvl [70-99 mg/dL] 8.4 g/dL (01/06/18 3:30 AM) Total Protein [6.4-8.4 g/dL] 3.8 g/dL (01/06/18 3:30 AM) Albumin Lvl [3.5-5.0 g/dL] 4.6 g/dL *HI* (01/06/18 3:30 AM) Globulin [2.7-4.2 g/dL] 0.8 (01/06/18 3:30 AM) A/G Ratio [0.7-1.6] 9.0 mg/dL (01/09/18 4:50 AM) 9.1 mg/dL (01/08/18 4:49 AM) 9.4 mg/dL (01/07/18 5:03 AM) Calcium Lvl [8.5-10.5 mg/dL] 4.5 mg/dL (01/06/18 11:21 AM) Phosphorus [2.5-4.5 mg/dL] 2.1 mg/dL (01/09/18 4:50 AM) 2.1 mg/dL (01/08/18 4:49 AM) 1.9 mg/dL (01/06/18 11:21 AM) Magnesium Lvl [1.8-2.4 mg/dL] 30 unit/L (01/06/18 3:30 AM) ALT [0-65 unit/L] 21 unit/L (01/06/18 3:30 AM) AST [0-37 unit/L] 81 unit/L (01/06/18 3:30 AM) Alk Phos [39-136 unit/L] 0.2 mg/dL (01/06/18 3:30 AM) Bili Total [0.2-1.3 mg/dL] 1Result Comment: The [...] 3 Most recent to oldest [Reference Range]: 172 unit/L (01/06/18 11:21 AM) 205 unit/L *HI* (01/06/18 7:09 AM) 249 unit/L *HI* (01/06/18 3:30 AM) Total CK [12-191 unit/L] 4.1 ng/mL *HI* (01/06/18 11:21 AM) 4.7 ng/mL *HI* (01/06/18 7:09 AM) 5.2 ng/mL *HI* (01/06/18 3:30 AM) CK MB [0.5-3.6 ng/mL] 2.4 (01/06/18 11:21 AM) 2.3 (01/06/18 7:09 AM) 2.1 (01/06/18 3:30 AM) CK MB Index [0.0-2.5] 0.05 ng/mL (01/06/18 11:21 AM) 0.06 ng/mL (01/06/18 7:09 AM) 0.08 ng/mL (01/06/18 3:30 AM) Troponin-I [0.00-0.40 ng/mL] 219 pg/mL *HI* (01/06/18 3:30 AM) proBNP [0-125 pg/mL] HEMATOLOGY 1 2 3 Most recent to oldest [Reference Range]: 9.0 K/CMM (01/09/18 4:50 AM) 8.8 K/CMM (01/08/18 4:49 AM) 10.1 K/CMM (01/07/18 5:03 AM) WBC [3.7-10.4 K/CMM] 4.88 M/CMM (01/09/18 4:50 AM) 4.64 M/CMM *LOW* (01/08/18 4:49 AM) 4.78 M/CMM (01/07/18 5:03 AM) RBC [4.70-6.10 M/CMM] 15.0 g/dL (01/09/18 4:50 AM) 14.2 g/dL (01/08/18:49 AM) 14.7 g/dL (01/07/18:03 AM) Hgb [14.0-18.0 g/dL] 44.1 % (01/09/18 4:50 AM) 42.1 % (01/08/18 4:49 AM) 43.6 % (01/07/18:03 AM) Hct [42.0-54.0 %] 90.4 fL (01/09/18:50 AM) 90.9 fL (01/08/18:49 AM) 91.2 fL (01/07/18: AM) MCV [80.0-94.0 fL] 30.8 pg (01/09/18:50 AM) 30.6 pg (01/08/18:49 AM) 30.7 pg (01/07/18:03 AM) MCH [27.0-31.0 pg] 34.1 g/dL (01/09/18 4:50 AM) 33.7 g/dL (01/08/18:49 AM) 33.7 g/dL (01/07/18:03 AM) MCHC [32.0-36.0 g/dL] 14.2 % (01/09/18 4:50 AM) 14.0 % (01/08/18 4:49 AM) 14.0 % (01/07/18: AM) RDW [11.5-14.5 %] 7.5 fL (01/09/18 4:50 AM) 7.3 fL *LOW* (01/08/18:49 AM) 7.7 fL (01/07/18:03 AM) MPV [7.4-10.4 fL] 254 K/CMM (01/09/18 4:50 AM) 261 K/CMM (01/08/18 4:49 AM) 268 K/CMM (01/07/18:03 AM) Platelet [133-450 K/CMM] 50.9 % (01/09/18 4:50 AM) 59.3 % (01/08/18 4:49 AM) 80.2 % *HI* (01/07/18 5:03 AM) Segs [45.0-75.0 %] 39.2 % (01/09/18 4:50 AM) 31.1 % (01/08/18 4:49 AM) 16.0 % *LOW* (01/07/18 5:03 AM) Lymphocytes [20.0-40.0 %] 9.0 % (01/09/18 4:50 AM) 8.9 % (01/08/18 4:49 AM) 3.5 % (01/07/18 5:03 AM) Monocytes [2.0-12.0 %] 0.4 % (01/09/18 4:50 AM) 0.3 % (01/08/18 4:49 AM) 1.4 % (01/06/18 3:30 AM) Eosinophils [0.0-4.0 %] 0.5 % (01/09/18 4:50 AM) 0.4 % (01/08/18 4:49 AM) 0.3 % (01/07/18 5:03 AM) Basophils [0.0-1.0 %] 4.6 K/CMM (01/09/18 4:50 AM) 5.2 K/CMM (01/08/18 4:49 AM) 8.1 K/CMM (01/07/18 5:03 AM) Segs-Bands # [1.5-8.1 K/CMM] 3.5 K/CMM (01/09/18 4:50 AM) 2.7 K/CMM (01/08/18 4:49 AM) 1.6 K/CMM (01/07/18 5:03 AM) Lymphocytes # [1.0-5.5 K/CMM] 0.8 K/CMM (01/09/18 4:50 AM) 0.8 K/CMM (01/08/18 4:49 AM) 0.4 K/CMM (01/07/18 5:03 AM) Monocytes # [0.0-0.8 K/CMM] 0.1 K/CMM (01/06/18 3:30 AM) Eosinophils # [0.0-0.5 K/CMM] 0.1 K/CMM (01/06/18 3:30 AM) Basophils # [0.0-0.2 K/CMM] Normal (01/06/18 3:30 AM) RBC Morph Normal (01/06/18 3:30 AM) Plt Morph 12.4 seconds (01/06/18 3:30 AM) PT [12.0-14.7 seconds] 0.92 (01/06/18 3:30 AM) INR [0.85-1.17] 28.2 seconds (01/06/18 3:30 AM) PTT [22.9-35.8 seconds] BACTERIAL - SEROLOGY 1 2 3 Most recent to oldest [Reference Range]: Negative (01/06/18 6:47 AM) MRSA by PCR Immunizations No data available for this section [...] Reg Smoking Cessation Counseling No entered on: 01/06/18 Assessment and Plan Extracted from: Title: PCCM Author: Conor Rutherford Date: 01/09/18 Markus CAMARA [facility] Pulmonary/Critical Care Progress Note History of Present Illness Mr. Cueva is a 52 year old man with history of hypertension, systolic CHF (LVEF 40-45%), morbid obesity who was admitted 01/06/18 for acute hypoxemic respiratory failure. He feels better today, feels wheezing has improved. Review of systems Constitutional: no fever, no chills Respiratory: no cough, no shortness of breath Cardiovascular: no chest pain, no palpitations GI: no vomiting, no diarrhea Allergies (1) ActiveReaction lisinoprilNone Documented Vital Signs (last 24 hrs) Last Charted Temp Oral98.1 DegF (JAN 09 07:40) Heart Rate [id number] bpm (JAN 09 07:40) Resp Rate 18 BRMIN (JAN 09 07:40) ZPS685 mmHg (JAN 09 07:40) DBPH 96mmHg (JAN 09 07:40) SpO2L 92% (JAN 09 07:40) Physical examination General: Sitting on bench, in no distress, appears comfortable Heart: Regular rate and rhythm, S1 and S2 heard Lungs: Clear to auscultation bilaterally, normal work of breathing Abdomen: Soft, obese, bowel sounds normoactive Extremities: No edema in legs, hands and feet are warm Skin: No rashes, no bruises Neurologic: Awake/alert, speech fluent Labs (Last four charted values) WBC 9.0(JAN 06)8.8(YOLI 05)10.1(YOLI 04)7.2(JAN 03) Hgb 15.0(YOLI 06)14.2(YOLI 05)14.7(YOLI 04)15.1(JAN 03) Hct 44.1(JAN 06)42.1(YOLI 05)43.6(YOLI 04)44.4(YOLI 03) Plt 254(YOLI 06)261(YOLI 05)268(YOLI 04)252(YOLI 03) Na 139(YOLI 06)138(YOLI 05)137(YOLI 04)139(YOLI 03) K 4.0(YOLI 06)3.9(YOLI 05)4.4(YOLI 04)4.5(YOLI 03) CO2 H 33(YOLI 06)H 35(YOLI 05)31(YOLI 04)29(YOLI 03) Cl 99(JAN 06)98(YOLI 05)99(YOLI 04)102(YOLI 03) Cr 1.13(YOLI 06)1.13(YOLI 05)1.19(YOLI 04)1.13(YOLI 03) BUN H 24(YOLI 06)H 27(YOLI 05)21(YOLI 04)17(YOLI 03) Glucose Random H 162(YOLI 06)H 187(YOLI 05)H 308(YOLI 04)H 163(YOLI 03) Mg 2.1(YOLI 06)2.1(YOLI 05)1.9(YOLI 03) Phos 4.5(YOLI 03) Ca 9.0(YOLI 06)9.1(YOLI 05)9.4(YOLI 04)9.1(YOLI 03) PT 12.4(JAN 06) INR 0.92(JAN 06) PTT 28.2(JAN 06) Troponin 0.05(JAN 06)0.06(JAN 06)0.08(JAN 06) CK MB H 4.1(JAN 06)H 4.7(JAN 06)H 5.2(JAN 06) Total CK 172(JAN 06)H 205(JAN 06)H 249(JAN 06) Imaging/Studies No new studies Impression 1. Acute on chronic hypoxemic and hypercapneic respiratory failure, improving 2. Wheezing, improved 3. Probable obesity hypoventilation 4. Probable obstructive sleep apnea 5. Type 2 diabetes 6. Morbid obesity _ Plan/Recommendations 1. Currently on room air, SpO2 89-92%, evaluate for home oxygen 2. Continue Duonebs, budesonide nebs, wean prednisone to 20mg daily 3. Continue Lantus for hyperglycemia, on high dose sliding scale 4. Continue BiPAP at night, needs outpatient sleep study 5. Continue Lasix q12h, transition to PO 6. Lovenox for DVT prophylaxis Conor Rutherford MD #[id number] Pulmonary/Critical Care Medicine [facility] Extracted from: Title: Clinical Document Author: Oliver Wheatley MD Date: 01/06/18 full H&P dictated, #[id number] date/time: 01/06/2018 05:35
--- OUTSIDE RECORDS SUMMARY | 2018-06-07 22:17 | XMS REPORT | Summary of Care ---
Author Author [facility] Organization [facility] Address Unknown Phone Unavailable Encounter HQ Too(FIN) [id number] Date(s): 11/05/17 - 11/08/17 [facility] [address] [place] [address]- [phone] Encounter Diagnosis Shortness of breath (Final) - Hypertensive heart and chronic kidney disease with heart failure and stage 1 thr ough stage 4 chronic kidney disease, or unspecified chronic kidney disease (Final) - 11/14/17 Acute respiratory failure with hypercapnia (Final) - Acute respiratory failure with hypoxia (Final) - Acute kidney failure, unspecified (Final) - Morbid (severe) obesity due to excess calories (Final) - Cardiomyopathy, unspecified (Final) - Acute systolic (congestive) heart failure (Final) - Body mass index (BMI) 36.0-36.9, adult (Final) - Obstructive sleep apnea (adult) (pediatric) (Final) - Chronic kidney disease, unspecified (Final) - Discharge Disposition: Home or Self Care Attending Physician: Ramos Pal MD Admitting Physician: Ramos Pal MD Vital Signs 1 2 3 Most recent to oldest [Reference Range]: 180.34 cm (11/05/17 3:15 AM) Height 98.5 DegF (11/08/17 8:21 AM) 97.9 DegF (11/08/17 3:32 AM) 98.1 DegF (11/07/17 11:18 PM) Temperature Oral [96.4-99.1 DegF] 144/97 mmHg *HI* (11/08/17 8:21 AM) 145/94 mmHg *HI* (11/08/17 3:32 AM) 125/84 mmHg (11/07/17 11:18 PM) Blood Pressure [90-140/60-90 mmHg] 19 BRMIN (11/08/17 8:21 AM) 17 BRMIN (11/08/17 5:26 AM) 16 BRMIN (11/08/17 3:32 AM) Respiratory Rate [14-20 BRMIN] 82 bpm (11/08/17 8:21 AM) 82 bpm (11/08/17 3:32 AM) 76 bpm (11/07/17 11:18 PM) Peripheral Pulse Rate [60-100 bpm] 119.545 kg (11/05/17 3:15 AM) Weight 36.76 m2 (11/05/17 3:15 AM) Body Mass Index Problem List Condition Effective Dates Status Health Status Informant Hypertension(Confirm Resolved ed) Type II diabetes Active mellitus poorly controlled(Confirmed ) Allergies, Adverse Reactions, Alerts Substance Reaction Severity Status penicillins Active lisinopril Active Medications acetaminophen-hydrocodone 325 mg-5 mg oral tablet 1 tab, Route: PO, Drug Form: TAB, Dosing Weight 119.545, kg, Q4H, PRN Pain Score 4-6, Start date: 11/05/17 6:26:00 CDT, Duration: 30 day, Stop date: 12/05/17 6: 25:00 CDT Notes: (Same as: [place] 325/5) Do not exceed 4gm/day of acetaminophen. Start Date: 11/05/17 Stop Date: 11/08/17 Status: Discontinued albuterol 0.083% inhalation solution 2.49 mg, Route: NEB, Drug form: SOLN, ONCE, Dosing Weight 119.545, kg, Priority: STAT, Start date: 11/05/17 3:50:00 CDT, Stop date: 11/05/17 3:50:00 CDT Start Date: 11/05/17 Stop Date: 11/05/17 Status: Completed albuterol 0.083% inhalation solution 2.49 mg, 3 mL, Route: NEB, Drug form: SOLN, PRN, Dosing Weight 119.545, kg, PRN Respiratory Protocol, Start date: 11/05/17 14:59:00 CDT, Duration: 30 day, Stop date: 12/05/17 14:58:00 CDT Notes: SEE RT DOCUMENTATION (Same as: Donnell) Start Date: 11/05/17 Stop Date: 11/08/17 Status: Discontinued Ambien 10 mg, PO, Bedtime, 0 Refill(s) Start Date: 11/05/17 Status: Ordered amitriptyline 25 mg oral tablet 25 mg=1 tab, PO, Bedtime, # 30 tab, 1 Refill(s) Start Date: 11/05/17 Status: Ordered aspirin 325 mg, 1 tab, Route: PO, Drug form: TAB, ONCE, Dosing Weight 119.545, kg, Prior ity: STAT, Start date: 11/05/17 3:31:00 CDT, Stop date: 11/05/17 3:31:00 CDT Notes: Take with food. Start Date: 11/05/17 Stop Date: 11/05/17 Status: Completed aspirin 81 mg, 1 tab, Route: PO, Drug form: ECTAB, Daily, Dosing Weight 119.545, kg, Sta rt date: 11/06/17 13:01:00 CDT, Duration: 30 day, Stop date: 12/06/17 9:00:00 CD T Notes: Do not crush or chew.(Same As: Ecotrin) Start Date: 11/06/17 Stop Date: 11/08/17 Status: Discontinued aspirin 81 mg tablet, enteric coated 81 mg=1 tab, PO, Daily, # 30 tab, 1 Refill(s), Pharmacy: [id number] Start Date: 11/08/17 Stop Date: 01/07/18 Status: Ordered carvedilol 12.5 mg, 1 tab, Route: PO, Drug form: TAB, Q12H, Dosing Weight 119.545, kg, Star t date: 11/05/17 21:00:00 CDT, Duration: 30 day, Stop date: 12/05/17 9:00:00 CDT Notes: Give with food. (Same As: Coreg) Start Date: 11/05/17 Stop Date: 11/08/17 Status: Discontinued carvedilol 12.5 mg oral tablet 12.5 mg=1 tab, PO, Q12H, # 60 tab, 1 Refill(s), Pharmacy: [id number] Start Date: 11/08/17 Stop Date: 01/09/18 Status: Discontinued DuoNeb inhalation solution 3 mL, Route: NEB, Dosing Weight 119.545, kg, ONCE, Start date: 11/05/17 3:49:00 CDT, Stop date: 11/05/17 3:49:00 CDT Start Date: 11/05/17 Stop Date: 11/05/17 Status: Completed DuoNeb inhalation solution 3 mL, Route: NEB, Drug Form: SOLN, Dosing Weight 119.545, kg, ONCE, Start date: 11/05/17 4:47:00 CDT, Stop date: 11/05/17 4:47:00 CDT Notes: (Same as: Duoneb) Start Date: 11/05/17 Stop Date: 11/05/17 Status: Completed enoxaparin 40 mg, 0.4 mL, Route: SUB-Q, Drug form: INJ, fewgH00A, Dosing Weight 119.545, kg , Start date: 11/05/17 11:00:00 CDT, Duration: 30 day, Stop date: 12/04/17 11:00 :00 CDT Notes: (Same as: Lovenox) Start Date: 11/05/17 Stop Date: 11/08/17 Status: Discontinued hydrochlorothiazide 12.5 mg, 1 cap, Route: PO, Drug form: CAP, Daily, Dosing Weight 119.545, kg, Sta rt date: 11/05/17 13:14:00 CDT, Duration: 30 day, Stop date: 12/05/17 9:00:00 CD T Notes: (Same as: Microzide) With food. Start Date: 11/05/17 Stop Date: 11/06/17 Status: Discontinued Lasix 20 mg, 2 mL, Route: IVP, Drug form: INJ, ONCE, Dosing Weight 119.545, kg, Start date: 11/05/17 6:26:00 CDT, Stop date: 11/05/17 6:26:00 CDT Notes: (Same as: Lasix) Start Date: 11/05/17 Stop Date: 11/05/17 Status: Completed Lasix 40 mg, 4 mL, Route: IVP, Drug form: INJ, Daily, Dosing Weight 119.545, kg, Start date: 11/05/17 10:55:00 CDT, Duration: 30 day, Stop date: 12/05/17 9:00:00 CDT Notes: (Same as: Lasix) MEDICATION WASTE Product Size: 40 mgProduct Was leeanne: ___ mg Start Date: 11/05/17 Stop Date: 11/06/17 Status: Discontinued Lasix 40 mg oral tablet 40 mg=1 tab, PO, Daily, # 30 tab, 1 Refill(s), Pharmacy: [facility] Start Date: 11/08/17 Stop Date: 12/04/17 Status: Discontinued Lasix 40 mg oral tablet 40 mg, 1 tab, Route: PO, Drug form: TAB, Daily, Dosing Weight 119.545, kg, Start date: 11/07/17 9:57:00 CDT, Duration: 30 day, Stop date: 12/07/17 9:00:00 CDT Notes: (Same as: Lasix) May cause GI upset. Give with food or milk. Start Date: 11/07/17 Stop Date: 11/08/17 Status: Discontinued meloxicam 15 mg oral tablet 15 mg=1 tab, PO, Daily, # 30 tab, 0 Refill(s) Start Date: 11/05/17 Status: Ordered methylPREDNISolone SODium SUCCinate 125 mg, 2 mL, Route: IVP, Drug form: INJ, ONCE, Dosing Weight 119.545, kg, Prior ity: STAT, Start date: 11/05/17 3:32:00 CDT, Stop date: 11/05/17 3:32:00 CDT Notes: (Same as:Solu-MEDROL, A-Methapred) Start Date: 11/05/17 Stop Date: 11/05/17 Status: Completed morphine Sulfate 2 mg, 2 mL, Route: IVP, Drug form: SOLN, Q4H, Dosing Weight 119.545, kg, PRN Nuno n Score 7-10, Start date: 11/05/17 6:26:00 CDT, Duration: 30 day, Stop date: 09/23 6:25:00 CDT Notes: Preservative free. (Same as: Morphine Sulfate-PF) Start Date: 11/05/17 Stop Date: 11/08/17 Status: Discontinued nitroglycerin 0.4 mg, 1 tab, Route: SL, Drug form: TAB, ONCE, Dosing Weight 119.545, kg, Prior ity: STAT, Start date: 11/05/17 3:31:00 CDT, Stop date: 11/05/17 3:31:00 CDT Notes: (Same as:Nitroquick, Nitrostat)"Do Not Crush" Sublingual tablet Start Date: 11/05/17 Stop Date: 11/05/17 Status: Completed nitroglycerin 0.4 mg, Route: SL, ONCE, Dosing Weight 119.545, kg, Priority: STAT, Start date: 11/05/17 3:48:00 CDT, Stop date: 11/05/17 3:48:00 CDT Start Date: 11/05/17 Stop Date: 11/05/17 Status: Completed nitroglycerin SL Tab 0.4 mg, 1 tab, Route: SL, Drug form: TAB, Q5Min, Dosing Weight 119.545, kg, PRN Chest Pain, Start date: 11/07/17 9:46:00 CDT, Duration: 3 doses or times, Stop d ate: Limited # of times Notes: (Same as:Nitroquick, Nitrostat)"Do Not Crush" Sublingual tablet Start Date: 11/07/17 Stop Date: 11/08/17 Status: Discontinued [place] 10/325 oral tablet 1 tab, PO, Q6H, knee and back pain, 0 Refill(s) Start Date: 11/05/17 Status: Ordered ondansetron 4 mg, 2 mL, Route: IVP, Drug form: INJ, Q6H, Dosing Weight 119.545, kg, PRN Naus ea & Vomiting, Start date: 11/05/17 6:26:00 CDT, Duration: 30 day, Stop date: 12/05/17 6:25:00 CDT Notes: (Same as: Arin) MEDICATION WASTE Product Size: 4 mgProduct Was leeanne: ___ mg Start Date: 11/05/17 Stop Date: 11/08/17 Status: Discontinued Saline Flush 0.9% 10 mL, Route: IVP, Drug Form: INJ, Dosing Weight 119.545, kg, PRN, PRN Line Flus h, Start date: 11/05/17 3:32:00 CDT, Duration: 30 day, Stop date: 12/05/17 3:31: 00 CDT Notes: (Same as: BD Posiflush) Start Date: 11/05/17 Stop Date: 11/08/17 Status: Discontinued Sodium Chloride 0.9% (Bolus) IV 250 mL, 250 ml/hr, Infuse Over: 1 hr, Route: IV, 250, Drug form: INJ, ONCALL, Pr iority: Routine, Dosing Weight 119.545 kg, Start date: 11/07/17 9:00:00 CDT, Dur ation: 1 doses or times Start Date: 11/07/17 Stop Date: 11/08/17 Status: Discontinued Sodium Chloride 0.9% (Bolus) IV 500 mL, Infuse Over: 1 hr, Route: IV, ONCE, Priority: STAT, Dosing Weight 119.54 5 kg, Start date: 11/05/17 4:21:00 CDT, Stop date: 11/05/17 4:21:00 CDT Start Date: 11/05/17 Stop Date: 11/05/17 Status: Completed Sodium Chloride 0.9% (titrate) 1,000 mL 1,000 mL, Rate: 50 ml/hr, Infuse over: 20 hr, Dosing Weight 119.545, kg, Route: IV, Total Volume: 1,000, Start Date: 11/06/17 12:22:00 CDT, Duration: 30 day, St op date: 12/06/17 12:21:00 CDT, Replace Every: 20 hr Start Date: 11/06/17 Stop Date: 11/07/17 Status: Discontinued Sodium Chloride 0.9% IV 750 mL 750 mL, Rate: 75 ml/hr, Infuse over: 10 hr, Route: IV, Dosing Weight 119.545 kg, Total Volume: 750, Start date: 11/07/17 8:11:00 CDT, Duration: 24 hr, Stop date: 11/08/17 8:10:00 CDT, 2.47, m2 Start Date: 11/07/17 Stop Date: 11/07/17 Status: Discontinued sodium chloride nasal spray 1 spray, Route: Each Affected Nostril, PRN, Drug form: SOLN, PRN Congestion, Sta rt date: 11/06/17 11:04:00 CDT, Duration: 30 day, Stop date: 12/06/17 11:03:00 C DT Notes: (Same as: [place], Deep Sea Nasal [place]). Start Date: 11/06/17 Stop Date: 11/08/17 Status: Discontinued valsartan 40 mg, 0.5 tab, Route: PO, Drug form: TAB, Q12H, Dosing Weight 119.545, kg, Star t date: 11/07/17 9:56:00 CDT, Duration: 30 day, Stop date: 12/07/17 9:00:00 CDT Notes: Same as Michelle Start Date: 11/07/17 Stop Date: 11/08/17 Status: Discontinued valsartan 80 mg oral tablet 40 mg=0.5 tab, PO, Q12H, # 30 tab, 0 Refill(s), Pharmacy: [id number] Start Date: 11/08/17 Stop Date: 12/04/17 Status: Discontinued Results ELECTROLYTES 1 2 3 Most recent to oldest [Reference Range]: 138 mEq/L (11/08/17 3:32 AM) 137 mEq/L (11/07/17 3:54 AM) 137 mEq/L (11/06/17 3:47 AM) Sodium Lvl [135-145 mEq/L] 4.2 mEq/L (11/08/17 3:32 AM) 4.5 mEq/L (11/07/17 3:54 AM) 4.2 mEq/L (11/06/17 3:47 AM) Potassium Lvl [3.5-5.1 mEq/L] 102 mEq/L (11/08/17 3:32 AM) 100 mEq/L (11/07/17 3:54 AM) 102 mEq/L (11/06/17 3:47 AM) Chloride Lvl [95-109 mEq/L] 31 mEq/L (11/08/17 3:32 AM) 32 mEq/L (11/07/17 3:54 AM) 29 mEq/L (11/06/17 3:47 AM) CO2 [24-32 mEq/L] 9.2 mEq/L *LOW* (11/08/17 3:32 AM) 9.5 mEq/L *LOW* (11/07/17 3:54 AM) 10.2 mEq/L (11/06/17 3:47 AM) AGAP [10.0-20.0 mEq/L] CHEM PANEL 1 2 3 Most recent to oldest [Reference Range]: 1.15 mg/dL (11/08/17 3:32 AM) 1.06 mg/dL (11/07/17 3:54 AM) 1.44 mg/dL *HI* (11/06/17 3:47 AM) Creatinine Lvl [0.50-1.40 mg/dL] 85 mL/min/1.73m2 1 *NA* (11/08/17 3:32 AM) 93 mL/min/1.73m2 2 *NA* (11/07/17 3:54 AM) 65 mL/min/1.73m2 3 *NA* (11/06/17 3:47 AM) eGFR 22 mg/dL (11/08/17 3:32 AM) 25 mg/dL *HI* (11/07/17 3:54 AM) 30 mg/dL *HI* (11/06/17 3:47 AM) BUN [7-22 mg/dL] 19 (11/08/17 3:32 AM) 21 (11/06/17 3:47 AM) 17 (11/05/17 3:37 AM) B/C Ratio [6-25] 117 mg/dL *HI* (11/08/17 3:32 AM) 121 mg/dL *HI* (11/07/17 3:54 AM) 158 mg/dL *HI* (11/06/17 3:47 AM) Glucose Lvl [70-99 mg/dL] 7.8 g/dL (11/08/17 3:32 AM) 8.1 g/dL (11/06/17 3:47 AM) 8.6 g/dL *HI* (11/05/17 3:37 AM) Total Protein [6.4-8.4 g/dL] 3.5 g/dL (11/08/17 3:32 AM) 3.8 g/dL (11/06/17 3:47 AM) 3.7 g/dL (11/05/17 3:37 AM) Albumin Lvl [3.5-5.0 g/dL] 4.3 g/dL *HI* (11/08/17 3:32 AM) 4.3 g/dL *HI* (11/06/17 3:47 AM) 4.9 g/dL *HI* (11/05/17 3:37 AM) Globulin [2.7-4.2 g/dL] 0.8 (11/08/17 3:32 AM) 0.9 (11/06/17 3:47 AM) 0.8 (11/05/17 3:37 AM) A/G Ratio [0.7-1.6] 9.0 mg/dL (11/08/17 3:32 AM) 8.6 mg/dL (11/07/17 3:54 AM) 9.1 mg/dL (11/06/17 3:47 AM) Calcium Lvl [8.5-10.5 mg/dL] 4.1 mg/dL (11/08/17 3:32 AM) 3.6 mg/dL (11/07/17 3:54 AM) 4.6 mg/dL *HI* (11/06/17 3:47 AM) Phosphorus [2.5-4.5 mg/dL] 2.2 mg/dL (11/08/17 3:32 AM) 2.2 mg/dL (11/07/17 3:54 AM) 2.3 mg/dL (11/06/17 3:47 AM) Magnesium Lvl [1.8-2.4 mg/dL] 28 unit/L (11/08/17 3:32 AM) 30 unit/L (11/06/17 3:47 AM) 35 unit/L (11/05/17 3:37 AM) ALT [0-65 unit/L] 14 unit/L (11/08/17 3:32 AM) 21 unit/L (11/06/17 3:47 AM) 30 unit/L (11/05/17 3:37 AM) AST [0-37 unit/L] 72 unit/L (11/08/17 3:32 AM) 70 unit/L (11/06/17 3:47 AM) 78 unit/L (11/05/17 3:37 AM) Alk Phos [39-136 unit/L] 0.5 mg/dL (11/08/17 3:32 AM) 0.5 mg/dL (11/06/17 3:47 AM) 0.4 mg/dL (11/05/17 3:37 AM) Bili Total [0.2-1.3 mg/dL] 197 unit/L (11/05/17 3:37 AM) Lipase Lvl [73-393 unit/L] 1.7 mMol/L (11/05/17 3:59 AM) Lactic Acid Lvl [0.5-2.2 mMol/L] 1Result Comment: The eGFR is calculated using [...] 3 Most recent to oldest [Reference Range]: 666 unit/L *HI* (11/05/17 3:37 AM) Total CK [12-191 unit/L] 7.4 ng/mL *HI* (11/05/17 3:37 AM) CK MB [0.5-3.6 ng/mL] 1.1 (11/05/17 3:37 AM) CK MB Index [0.0-2.5] 0.04 ng/mL (11/05/17 2:43 PM) 0.09 ng/mL (11/05/17 9:00 AM) 0.12 ng/mL (11/05/17 4:52 AM) Troponin-I [0.00-0.40 ng/mL] 204 pg/mL *HI* (11/05/17 3:37 AM) proBNP [0-125 pg/mL] DRUG SCREEN 1 2 3 Most recent to oldest [Reference Range]: Negative *NA* (11/05/17 4:52 AM) U Amph Scr [Negative] Negative *NA* (11/05/17 4:52 AM) U Elizabeth Scr [Negative] Negative *NA* (11/05/17 4:52 AM) U Benzodia Scr [Negative] Negative *NA* (11/05/17 4:52 AM) U Cocaine Scr [Negative] Negative *NA* (11/05/17 4:52 AM) U Opiate Scr [Negative] Negative *NA* (11/05/17 4:52 AM) U Phencyc Scr [Negative] Negative *NA* (11/05/17 4:52 AM) U Cannab Scr [Negative] See Note *NA* (11/05/17 4:52 AM) UDS Note URINE AND STOOL 1 2 3 Most recent to oldest [Reference Range]: Clear (11/05/17 4:52 AM) UA Turbidity [Clear] Yellow *NA* (11/05/17 4:52 AM) UA Color [Yellow] 5.0 (11/05/17 4:52 AM) UA pH [5.0-8.0] 1.038 *HI* (11/05/17 4:52 AM) UA Spec Grav [<=1.030] Negative mg/dL *NA* (11/05/17 4:52 AM) UA Glucose [Negative mg/dL] Negative (11/05/17 4:52 AM) UA Blood [Negative] Negative mg/dL *NA* (11/05/17 4:52 AM) UA Ketones [Negative mg/dL] 100 mg/dL *ABN* (11/05/17 4:52 AM) UA Protein [Negative mg/dL] 4.0 mg/dL *HI* (11/05/17 4:52 AM) UA Urobilinogen [0.1-1.0 mg/dL] Negative *NA* (11/05/17 4:52 AM) UA Bili [Negative] Negative (11/05/17 4:52 AM) UA Leuk Est [Negative] Negative (11/05/17 4:52 AM) UA Nitrite [Negative] 2 /HPF (11/05/17 4:52 AM) UA WBC [0-5 /HPF] 4 /HPF *HI* (11/05/17 4:52 AM) UA RBC [0-2 /HPF] Occasional /LPF *NA* (11/05/17 4:52 AM) UA Sq Epi [Few /LPF] Few /LPF *NA* (11/05/17 4:52 AM) UA Mucus [None Seen /LPF] HEMATOLOGY 1 2 3 Most recent to oldest [Reference Range]: 7.2 K/CMM (11/08/17 3:32 AM) 11.1 K/CMM *HI* (11/06/17 3:47 AM) 7.5 K/CMM (11/05/17 3:37 AM) WBC [3.7-10.4 K/CMM] 4.81 M/CMM (11/08/17 3:32 AM) 4.82 M/CMM (11/06/17 3:47 AM) 5.19 M/CMM (11/05/17 3:37 AM) RBC [4.70-6.10 M/CMM] 14.8 g/dL (11/08/17 3:32 AM) 14.7 g/dL (11/06/17 3:47 AM) 15.9 g/dL (11/05/17 3:37 AM) Hgb [14.0-18.0 g/dL] 43.3 % (11/08/17 3:32 AM) 43.6 % (11/06/17 3:47 AM) 46.6 % (11/05/17 3:37 AM) Hct [42.0-54.0 %] 89.9 fL (11/08/17 3:32 AM) 90.4 fL (11/06/17 3:47 AM) 89.6 fL (11/05/17 3:37 AM) MCV [80.0-94.0 fL] 30.8 pg (11/08/17 3:32 AM) 30.4 pg (11/06/17 3:47 AM) 30.6 pg (11/05/17 3:37 AM) MCH [27.0-31.0 pg] 34.3 g/dL (11/08/17 3:32 AM) 33.7 g/dL (11/06/17 3:47 AM) 34.2 g/dL (11/05/17 3:37 AM) MCHC [32.0-36.0 g/dL] 14.7 % *HI* (11/08/17 3:32 AM) 14.7 % *HI* (11/06/17 3:47 AM) 14.7 % *HI* (11/05/17 3:37 AM) RDW [11.5-14.5 %] 7.7 fL (11/08/17 3:32 AM) 7.5 fL (11/06/17 3:47 AM) 7.6 fL (11/05/17 3:37 AM) MPV [7.4-10.4 fL] 296 K/CMM (11/08/17 3:32 AM) 317 K/CMM (11/06/17 3:47 AM) 298 K/CMM (11/05/17 3:37 AM) Platelet [133-450 K/CMM] 45.7 % (11/08/17 3:32 AM) 63.2 % (11/06/17 3:47 AM) 45.2 % (11/05/17 3:37 AM) Segs [45.0-75.0 %] 43.4 % *HI* (11/08/17 3:32 AM) 28.4 % (11/06/17 3:47 AM) 45.2 % *HI* (11/05/17 3:37 AM) Lymphocytes [20.0-40.0 %] 8.9 % (11/08/17 3:32 AM) 7.5 % (11/06/17 3:47 AM) 7.1 % (11/05/17 3:37 AM) Monocytes [2.0-12.0 %] 1.5 % (11/08/17 3:32 AM) 0.3 % (11/06/17 3:47 AM) 1.9 % (11/05/17 3:37 AM) Eosinophils [0.0-4.0 %] 0.5 % (11/08/17 3:32 AM) 0.6 % (11/06/17 3:47 AM) 0.6 % (11/05/17 3:37 AM) Basophils [0.0-1.0 %] 3.3 K/CMM (11/08/17 3:32 AM) 7.0 K/CMM (11/06/17 3:47 AM) 3.4 K/CMM (11/05/17 3:37 AM) Segs-Bands # [1.5-8.1 K/CMM] 3.1 K/CMM (11/08/17 3:32 AM) 3.2 K/CMM (11/06/17 3:47 AM) 3.4 K/CMM (11/05/17 3:37 AM) Lymphocytes # [1.0-5.5 K/CMM] 0.6 K/CMM (11/08/17 3:32 AM) 0.8 K/CMM (11/06/17 3:47 AM) 0.5 K/CMM (11/05/17 3:37 AM) Monocytes # [0.0-0.8 K/CMM] 0.1 K/CMM (11/08/17 3:32 AM) 0.1 K/CMM (11/05/17 3:37 AM) Eosinophils # [0.0-0.5 K/CMM] 0.1 K/CMM (11/06/17 3:47 AM) Basophils # [0.0-0.2 K/CMM] 12.9 seconds (11/05/17 3:37 AM) PT [12.0-14.7 seconds] 0.97 (11/05/17 3:37 AM) INR [0.85-1.17] 28.1 seconds (11/05/17 3:37 AM) PTT [22.9-35.8 seconds] Immunizations Given and Recorded Vaccine Date Status [...] 01/31/18 Assessment and Plan Extracted from: Title: Discharge Summary * Author: Ramos Pal Date: 11/08/17 Discharge Information Acute hypoxemic and hypercapneic respiratory failure, improving . New onset systolic CHF Hypertension Morbid obesity ARON suspected ZION Discharge Plan Discharge Summary Plan Discharge Status: improved. Discharge instructions given: to patient. Discharge disposition: discharge to home. Prescriptions: e prescribed. Orders time spent > 35 minutes. Extracted from: Title: Progress Note Complex * Author: Ramos Pal Date: 11/07/17 Impression and Plan Acute hypoxemic and hypercapneic respiratory failure, improving . New onset systolic CHF Hypertension Morbid obesity ARON suspected ZION patientw ill need one more day of IV diureses started valsartan monitor for any allergic reaction c/w coreg, aspirin, statin outpatient sleep study, patient counseled heavy about weight loss c/w BIPAP dvt ppx Extracted from: Title: Clinical Document Author: Oliver Wheatley MD Date: 11/05/17 full H&P dictated, #[id number] date/time: 11/05/2017 06:07
[2018-06-07] MEDS ORDERED: FUROSEMIDE INJ 10 MG/ML 4 ML VIAL IV STA ×2 (22:18→22:45)
[2018-06-07] MEDS ORDERED: ASPIRIN 81 MG CHEW TAB PO STA (22:21)
[2018-06-07] MEDS ORDERED: ALBUTEROL/IPRATROPIUM 3 ML NEB NEB STA ×2 (22:39→22:56)
[2018-06-07] MEDS ORDERED: METHYLPREDNISOLONE SOD SUCC 125 MG/2ML VIAL IV STA (22:56)
[2018-06-07] MEDS ORDERED: SODIUM CHLORIDE FLUSH 10 ML SYR INJ PRN (23:15)
[2018-06-07] MEDS ORDERED: ASPIRIN 81 MG CHEW TAB PO ONE (23:15)
--- NOTE | 2018-06-07 23:29 | Diagnostic Imaging Report ---
Exam: AP view of the chest June 07, 2018 Indication: Chest pain Comparison: None Findings: Grid artifact across the chest. Low inspiration results in vascular crowding and atelectasis at the lung bases. The heart is within normal size limits for technique. Limited view of the bones. Impression: Bibasilar atelectasis. Signed by: Dr. Janki Devi M.D. on 06/07/2018 11:26 PM
--- OUTSIDE RECORDS SUMMARY | 2018-06-07 23:53 | XMS REPORT ---
Author Author [facility] Address Unknown Phone Unavailable Care Team Providers Care Branch Account Manager Name Role Phone MARI TORREZ Unavailable Unavailable Problems This patient has no known problems. Allergies, Adverse Reactions, Alerts This patient has no known allergies or adverse reactions. Medications This patient has no known medications. Results Test Description Test Time Test Comments Text Results Atomic Results Result Comments CXR 1 [facility] 2018-06-07 23:24:00 [place] [address] Patient Name: FABIO CUEVA MR #: [id number] : 1965 Age/Sex: 52/M Req #: [id number] [facility] Physician: Ordered by: MARI TORREZ MD Report #: [id number] Location: [facility] Room/Bed: Procedure: [id number] HOPD/CXR 1 [facility] Exam Date: 06/07/18 Exam Time: 2300 REPORT STATUS: Signed Exam: AP view of the chest June 07, 2018 Indication: Chest pain Comparison: None Findings: Grid artifact across the chest. Low inspiration results in vascular crowding and atelectasis at the lung bases. The heart is within normal size limits for technique. Limited view of the bones. Impression: Bibasilar atelectasis. Signed by: Dr. Lelia Mandujano M.D. on 06/07/2018 11:26 PM Dictated By: LELIA MANDUJANO MD 25 Transcribed By: SHANICE on 06/07/182325 COPY TO: MARI TORREZ MD
[2018-06-08] VITALS (105 sets, daily range): BP systolic 68–181; BP diastolic 38–171
[2018-06-08] MEDS ORDERED: ENOXAPARIN SODIUM INJ 100 MG/ML SYR SC STA (00:12)
[2018-06-08] MEDS ORDERED: ALBUTEROL/IPRATROPIUM 3 ML NEB NEB ONE (01:30)
[2018-06-08] MEDS ORDERED: SODIUM CHLORIDE 0.9% 1000ML 1,000 ML ONE (02:38)
[2018-06-08] MEDS: PROPOFOL IV EMULSION 10 MG/ML 50 ML VIAL IV PRN ×2 (03:00→07:46)
[2018-06-08] MEDS ORDERED: PROPOFOL IV EMULSION 10MG/ML 100 ML ONE ×2 (03:02→07:39)
[2018-06-08 03:24] LABS: ABG PCO2 69 mmHg (41-51)
[2018-06-08 03:25] LABS: ABG HCO3 34 mmol/L (23-28); ABG PO2 143 mmHg (80-105)
--- NOTE | 2018-06-08 03:36 | Diagnostic Imaging Report ---
EXAM: CHEST SINGLE (PORTABLE), AP 1 view INDICATION: Intubated, respiratory failure COMPARISON: AP view of the chest June 07, 2018 FINDINGS: LINES/TUBES: Interval placement of endotracheal tube. Interval placement of nasal/orogastric tube that courses below the diaphragm out of field of view. LUNGS: Low inspiration with bibasilar atelectasis. PLEURA: No effusions or pneumothorax. HEART AND MEDIASTINUM: Normal for technique and rotation. BONES AND SOFT TISSUES: No acute findings. IMPRESSION: Interval placement of endotracheal tube with tip at the thoracic inlet, approximately 6 cm above the blanche. Persistent low inspiration with bibasilar atelectasis. Signed by: Dr. Janki Devi M.D. on 06/08/2018 3:32 AM
[2018-06-08] MEDS ORDERED: ALBUTEROL/IPRATROPIUM 3 ML NEB ONE (03:51)
[2018-06-08 04:41] LABS: BASOPHILS % 0.1 % (0.0-1.0); HEMATOCRIT 45.4 % (38.2-49.6); HEMOGLOBIN 14.1 g/dL (14.0-18.0); LYMPHOCYTES # (AUTO) 1.2 (1.0-3.2); LYMPHOCYTES % 17.5 % (18.0-39.1); MEAN CORPUSCULAR HGB CONC 31.1 g/dL (31-35); MEAN CORPUSCULAR VOLUME 93.2 fL (81-99); MONOCYTES # (AUTO) 0.1 (0.2-0.8); MONOCYTES % 1.3 % (4.4-11.3); NEUTROPHILS # (AUTO) 5.6 (2.1-6.9); NEUTROPHILS % 80.8 % (38.7-80.0); PLATELET COUNT 262 x10e3/uL (140-360); RED BLOOD COUNT 4.87 x10e6/uL (4.3-5.7); RED CELL DISTRIBUTION WIDTH 12.7 % (11.7-14.4)
[2018-06-08 05:07] LABS: CREATINE KINASE MB 3.2 ng/mL (0-5.0)
[2018-06-08] MEDS ORDERED: LASIX40 MG PO (08:59)
[2018-06-08] MEDS ORDERED: COREG12.5 MG PO (09:00)
[2018-06-08] MEDS ORDERED: XANAX1 MG PO (09:01)
[2018-06-08] MEDS ORDERED: MELOXICAM7.5 MG PO (09:01)
[2018-06-08] MEDS ORDERED: LIPITOR20 MG PO (09:02)
[2018-06-08] MEDS ORDERED: AMITRIPTYLINE H10 MG PO (09:02)
[2018-06-08] MEDS ORDERED: METFORMIN HCL500 MG PO (09:02)
[2018-06-08] MEDS ORDERED: AMBIEN5 MG PO (09:03)
[2018-06-08] MEDS ORDERED: NORCO 5-325 TA1 EACH PO (09:03)
[2018-06-08] MEDS: PROPOFOL IV EMULSION 10MG/ML 100ML BTL IV PRN ×3 (12:16→19:27)
[2018-06-08] MEDS ORDERED: DEXTROSE 50% SYRINGE 50 ML IV PRN (14:45)
[2018-06-08] MEDS: FUROSEMIDE INJ 10 MG/ML 4 ML VIAL IV SCH ×2 (14:52→21:57)
[2018-06-08] MEDS: AZITHROMYCIN 500MG/NS 250 ML 250 ML IV SCH (14:52)
[2018-06-08] MEDS: DEXTROSE 5% 1,000 ML IV SCH (16:05)
[2018-06-08 16:06] LABS: CREATINE KINASE MB 11.1 ng/mL (0-5.0)
[2018-06-08] MEDS: FAMOTIDINE 20 MG/2 ML VIAL IV SCH (16:07)
[2018-06-08] MEDS: ENOXAPARIN SODIUM INJ 100 MG/ML SYR SC SCH (16:07)
[2018-06-08] MEDS: INSULIN REGULAR, HUMAN 100 UNIT/1 ML 3ML VIAL SQ SCH ×2 (16:09→21:55)
[2018-06-08] MEDS: ALBUTEROL/IPRATROPIUM 3 ML NEB NEB SCH (19:30)
[2018-06-08] MEDS: ACETAMINOPHEN 325 MG/10 ML UDC NG PRN (21:54)
[2018-06-08] MEDS: CEFTRIAXONE SOD 1 GM VIAL IV SCH (22:49)
[2018-06-08] MEDS ORDERED: AZITHROMYCIN 500MG/NS 250 ML 250 ML IV SCH (23:30)
[2018-06-09] VITALS (60 sets, daily range): BP systolic 96–157; BP diastolic 58–112
--- NOTE | 2018-06-09 01:20 | Consultation ---
DATE OF CONSULTATION: June 08, 2018 PULMONARY MEDICINE PROGRESS NOTE SUBJECTIVE: Mr. Mcqueen was seen and examined at bedside. He is a pleasant 52-year-old gentleman with acute respiratory failure. The patient with sharp chest pain that occurred yesterday. Reportedly, he was diagnosed with a heart failure in November 2017. He has been in and out of the hospital since then. His last hospitalization was a couple of weeks ago. He was doing okay until 1 or 2 days ago when his respiratory issues became severe. When he came to the emergency room, he was saturating at 78% on room air FiO2. Patient was seen with progressive lethargy and then became near stuporous. Decision was for admission into the hospital. He was intubated on trach settings. Chest x-ray had shown just bilateral small atelectasis. There was also endotracheal tube malposition. He remains off hemodynamic agents. PAST MEDICAL HISTORY: Hypertension, diabetes, CHF, knee and ankle surgeries, obesity. MEDICATIONS: Medication list reviewed per electronic record. He was already started on anticoagulation for example, other medicines per record. ALLERGIES: LISINOPRIL. SOCIAL HISTORY: Patient's girlfriend denies any history of smoking, drinking, nor using drugs. Patient's girlfriend is often present at bedside. FAMILY HISTORY: Noncontributory. REVIEW OF SYSTEMS: Cannot get as he is intubated. OBJECTIVE: VITAL SIGNS: Currently afebrile although slightly warm skin. Otherwise, vital signs are unremarkable per record. HEENT: Normocephalic and atraumatic. NECK: Supple. Throat is midline. LUNGS: Bilateral air entry is limited, rare rhonchi. CARDIOVASCULAR: S1, S2. No murmurs, rubs or gallops. ABDOMEN: Soft, obese, probably nontender. EXTREMITIES: No clubbing. No cyanosis. There is 1+ edema. INTEGUMENT: No rash. No purpura. LABS: Reviewed to include 4.5 potassium, 95 chloride, 217 glucose, 14 BUN, 1.2 creatinine. LFTs are mostly unremarkable with albumin of 3.8. BNP level was 70. D-dimer was normal per report. White count 7, hematocrit 47, platelets 258. IMPRESSION: 1. Acute respiratory failure. 2. Obesity, possible obesity hypoventilation exacerbation. 3. Reported chronic obstructive pulmonary disease. 4. Diabetes. 5. Hypertension. 6. Encephalopathy, hypercapnic respiratory failure. 7. Possible chronic pain, using [place] at home per list. 8. Reported heart failure, possibly diastolic. 9. Hyperlipidemia. 10. Gastropathy versus ileus, elevated GI output initially. PLAN: Continue intubation, ventilator support will be continued. Patient will get empiric antibiotics for possible respiratory exacerbation. If GI issues continue, we must consider looking at the GI tract for problems. Continue low intermittent suction NG tube, OT tube at this time. Give some IV fluids given the dropping kidney output, rule out early acute kidney injury. Check echo. Check lipase and CK levels. Patient is in critical condition. The endotracheal tube has already been adjusted from its initial malposition. We will follow along closely. Thank you very much, Dr. Sapp, for allowing me the chance to participate in the care of Mr. Jaime Mcqueen. Do not hesitate to contact me if I can help in any way. Greater than 30 minutes in direct care , multiple evaluations and investigations. Job#: [id number]
[2018-06-09] MEDS: ALBUTEROL/IPRATROPIUM 3 ML NEB NEB SCH ×4 (01:50→19:15)
[2018-06-09] MEDS: PROPOFOL IV EMULSION 10MG/ML 100ML BTL IV PRN ×2 (02:45→05:43)
[2018-06-09] MEDS: ENOXAPARIN SODIUM INJ 100 MG/ML SYR SC SCH (03:00)
[2018-06-09 04:49] LABS: BASOPHILS % 0.2 % (0.0-1.0); EOSINOPHILS % 0.2 % (0.0-6.0); HEMATOCRIT 42.4 % (38.2-49.6); HEMOGLOBIN 13.6 g/dL (14.0-18.0); LYMPHOCYTES # (AUTO) 3.7 (1.0-3.2); LYMPHOCYTES % 33.9 % (18.0-39.1); MEAN CORPUSCULAR HEMOGLOBIN 28.9 pg (28-32); MEAN CORPUSCULAR HGB CONC 32.1 g/dL (31-35); MEAN CORPUSCULAR VOLUME 90.2 fL (81-99); MONOCYTES # (AUTO) 0.9 (0.2-0.8); MONOCYTES % 8.6 % (4.4-11.3); NEUTROPHILS # (AUTO) 6.2 (2.1-6.9); NEUTROPHILS % 56.8 % (38.7-80.0); PLATELET COUNT 276 x10e3/uL (140-360); RED CELL DISTRIBUTION WIDTH 13.2 % (11.7-14.4)
[2018-06-09 05:05] LABS: INR 0.95; PROTHROMBIN TIME 13.5 seconds (11.9-14.5)
[2018-06-09 05:06] LABS: PARTIAL THROMBOPLASTIN TIME 29.7 seconds (23.8-35.5)
[2018-06-09] MEDS: DEXTROSE 5% 1,000 ML IV SCH (05:12)
[2018-06-09 05:27] LABS: ALBUMIN 3.5 g/dL (3.5-5.0); ALBUMIN/GLOBULIN RATIO 0.9 (0.8-2.0); ANION GAP 18.8 mmol/L (8-16); CALCIUM 9.7 mg/dL (8.4-10.2); CREATININE, SERUM 3.15 mg/dL (0.72-1.25); MAGNESIUM 1.8 MG/DL (1.3-2.1); PHOSPHORUS 4.3 MG/DL (2.3-4.7); POTASSIUM 3.8 mmol/L (3.5-5.1)
[2018-06-09 05:40] LABS: THYROID STIMULATING HORMONE 1.051 uIU/mL (0.350-4.940)
--- NOTE | 2018-06-09 06:36 | Diagnostic Imaging Report ---
EXAM: CHEST SINGLE (PORTABLE), AP 1 view INDICATION: Patient intubated COMPARISON: AP view of the chest June 08, 2018 FINDINGS: LINES/TUBES: Incomplete evaluation of the endotracheal tube and nasal/orogastric tube LUNGS: Low inspiration with bibasilar atelectasis PLEURA: Indeterminate for effusion on the left HEART AND MEDIASTINUM: Poorly evaluated due to rotation BONES AND SOFT TISSUES: No acute findings. IMPRESSION: Exam is essentially non-diagnostic and should be repeated. Unable to clearly see the endotracheal tube or nasal/orogastric tube. Incomplete evaluation of the cardiomediastinal silhouette and lungs. Signed by: Dr. Janki Devi M.D. on 06/09/2018 6:32 AM
[2018-06-09 06:48] LABS: HIV 1&2 AB SCREEN NON-REACTIVE (NONREACTIVE)
[2018-06-09] MEDS: FUROSEMIDE INJ 10 MG/ML 4 ML VIAL IV SCH (07:50)
[2018-06-09] MEDS: FAMOTIDINE 20 MG/2 ML VIAL IV SCH (07:50)
[2018-06-09] MEDS: ACETAMINOPHEN 325 MG/10 ML UDC NG PRN (08:14)
[2018-06-09] MEDS: INSULIN REGULAR, HUMAN 100 UNIT/1 ML 3ML VIAL SQ SCH ×4 (09:41→20:57)
[2018-06-09 13:32] LABS: ABG HCO3 34 mmol/L (23-28); ABG PCO2 44 mmHg (41-51); ABG PH 7.49 (7.31-7.41); ABG PO2 74 mmHg (80-105)
[2018-06-09] MEDS: AZITHROMYCIN 500MG/NS 250 ML 250 ML IV SCH (14:59)
--- NOTE | 2018-06-09 16:50 | Progress Note ---
DATE: June 09, 2018 PULMONARY MEDICINE PROGRESS NOTE SUBJECTIVE: `Mr. Mcqueen was seen and examined at bedside. Patient continues in critical condition. Patient at this time remains with 1.6 liters coming in, 2.5 liters out. Patient has additional output by NG tube, 95% oxygen saturation on 4 L per minute oxygen by nasal cannula. He is on D5W at 75 mL per hour. After serial evaluation, we were able to give him trial of spontaneous awakening and then spontaneous breathing after we extubated the patient. Patient continues in the ICU. He is talking. He has already had his first meal by now. After getting his story thoroughly, it still unclear the underlying etiology of this failure. REVIEW OF SYSTEMS: No headaches, no bleeding. OBJECTIVE VITAL SIGNS: Afebrile, vital signs noted per electronic record. GENERAL: Looks weak, sitting up and obese. HEENT: Normocephalic, atraumatic. NECK: Supple. Throat midline. LUNGS: Bilateral air entry, rare rhonchi, mostly clear with mildly decreased breath sounds. CARDIOVASCULAR: S1 and S2. No murmurs, rubs, or gallops. ABDOMEN: Soft, nontender, obese. EXTREMITIES: No clubbing, no cyanosis. There is 1+ edema. INTEGUMENT: No rash. No purpura. LABS: Potassium 3.8, BUN 42, creatinine 3.15. White blood count 11, hematocrit 42. IMPRESSION 1. Acute respiratory failure, extubated. 2. Chronic respiratory failure, under evaluation. 3. Obesity, possibly obesity hypoventilation. 4. Possible kyphosis, disorder of spinal cord. 5. History of mildly premature , cannot rule out congenital lung problem. 6. History of allergies, possibly asthma. 7. Lifetime nonsmoker. 8. Acute kidney failure. PLAN: At this time, we will continue to follow very closely. Patient is in critical condition. Allow the patient to mobilize. Check renal function and evaluate this kidney failure. Give him more IV fluid and stop Lasix. Plan to go into positive balance. Follow along closely. Medicines have to be adjusted for kidney insufficiency including the Lovenox. Great than 30 minutes in direct care today, most evaluation and intervention. Job#: [id number] PEGGY
[2018-06-09] MEDS ORDERED: ACETAMINOPHEN 325 MG TAB ONE (17:09)
[2018-06-09] MEDS: ACETAMINOPHEN 325 MG TAB PO PRN (17:10)
[2018-06-09 21:06] LABS: SODIUM,URINE 29 mmol/L
[2018-06-09 21:27] LABS: CLARITY,URINE CLOUDY (CLEAR); COLOR,URINE YELLOW (YELLOW); KETONES,URINE NEGATIVE (NEGATIVE); LEUKOCYTE ESTERASE ,URINE NEGATIVE (NEGATIVE); NITRITE,URINE NEGATIVE (NEGATIVE); PROTEIN,URINE DIPSTICK 1+ (NEGATIVE); URINE UROBILINOGEN 0.2 mg/dL (0.2 - 1)
[2018-06-09 21:28] LABS: BACTERIA,URINE FEW /HPF; BILIRUBIN,URINE NEGATIVE (NEGATIVE); EPITHELIAL CELLS,URINE RARE /LPF; LEUCINE CRYSTALS,URINE FEW; RBC,URINE >50 /HPF (0-5); WBC,URINE (MAN) 0-5 /HPF (0-5)
[2018-06-09] MEDS: CEFTRIAXONE SOD 1 GM VIAL IV SCH (22:23)
[2018-06-09 23:28] LABS: CREATININE,URINE RANDOM 187.45 mg/dL (63-166)
[2018-06-10] VITALS (15 sets, daily range): BP systolic 117–162; BP diastolic 72–119
[2018-06-10] MEDS: ALBUTEROL/IPRATROPIUM 3 ML NEB NEB SCH ×4 (00:30→20:15)
[2018-06-10 04:29] LABS: BASOPHILS % 0.1 % (0.0-1.0); EOSINOPHILS # (AUTO) 0.1 (0.0-0.4); EOSINOPHILS % 0.7 % (0.0-6.0); HEMATOCRIT 43.5 % (38.2-49.6); HEMOGLOBIN 13.8 g/dL (14.0-18.0); LYMPHOCYTES # (AUTO) 3.2 (1.0-3.2); LYMPHOCYTES % 36.7 % (18.0-39.1); MEAN CORPUSCULAR HEMOGLOBIN 29.2 pg (28-32); MEAN CORPUSCULAR HGB CONC 31.7 g/dL (31-35); MEAN CORPUSCULAR VOLUME 92.2 fL (81-99); MONOCYTES # (AUTO) 0.7 (0.2-0.8); MONOCYTES % 8.6 % (4.4-11.3); NEUTROPHILS # (AUTO) 4.6 (2.1-6.9); NEUTROPHILS % 53.7 % (38.7-80.0); PLATELET COUNT 262 x10e3/uL (140-360); RED BLOOD COUNT 4.72 x10e6/uL (4.3-5.7); RED CELL DISTRIBUTION WIDTH 13.4 % (11.7-14.4)
[2018-06-10] MEDS: DEXTROSE 5% 1,000 ML IV SCH ×2 (04:36→09:39)
[2018-06-10 04:49] LABS: ALANINE AMINOTRANSFERASE 58 IU/L (0-55); ALBUMIN 3.4 g/dL (3.5-5.0); ALBUMIN/GLOBULIN RATIO 0.9 (0.8-2.0); ALKALINE PHOSPHATASE 67 IU/L (40-150); ANION GAP 15.4 mmol/L (8-16); BLOOD UREA NITROGEN 31 mg/dL (7-26); BUN/CREATININE RATIO 23 (6-25); CALCIUM 9.4 mg/dL (8.4-10.2); CARBON DIOXIDE 32 mmol/L (22-29); CHLORIDE 95 mmol/L (98-107); CREATININE, SERUM 1.37 mg/dL (0.72-1.25); EST GLOMERULAR FILTRATION RATE > 60 ML/MIN (60-); GLUCOSE 216 mg/dL (74-118); MAGNESIUM 2.2 MG/DL (1.3-2.1); PHOSPHORUS 3.6 MG/DL (2.3-4.7); POTASSIUM 3.4 mmol/L (3.5-5.1); SODIUM 139 mmol/L (136-145)
--- NOTE | 2018-06-10 06:49 | Diagnostic Imaging Report ---
EXAM: CHEST SINGLE (PORTABLE), AP 1 view INDICATION: CHF COMPARISON: AP view of the chest June 09, 2018 FINDINGS: LINES/TUBES: None LUNGS: No consolidations or edema. Bibasilar subsegmental atelectasis. PLEURA: No effusions or pneumothorax. HEART AND MEDIASTINUM: Within normal limits for technique and lordotic view BONES AND SOFT TISSUES: No acute findings. IMPRESSION: No acute thoracic abnormality. Signed by: Dr. Janki Devi M.D. on 06/10/2018 6:45 AM
[2018-06-10] MEDS: INSULIN REGULAR, HUMAN 100 UNIT/1 ML 3ML VIAL SQ SCH ×4 (08:15→21:29)
--- NOTE | 2018-06-10 11:24 | Diagnostic Imaging Report ---
EXAM: Renal Ultrasound INDICATION: Renal failure. COMPARISON: None TECHNIQUE: Transverse and longitudinal images of the kidneys and bladder were obtained. FINDINGS: Right Kidney: Length: Measures 12.4 x 6.3 x 5.9 cm. Appearance: Normal echogenicity. Collecting system: No hydronephrosis Stones: None Cyst/Mass: None Left Kidney: Length: Measures 11.6 x 6.2 x 6.8 cm. Appearance: Normal echogenicity. Collecting system: No hydronephrosis Stones: None Cyst/Mass: Multiple predominately simple appearing left sided renal cysts. Largest anechoic cyst measures up to 3.2 cm in the mid pole and a smaller 1.9 cm cyst is present in the inferior pole. Bladder: Right ureteral jet is seen. Left ureteral jet is not seen. IMPRESSION: No evidence of hydronephrosis. Normal bilateral renal echogenicity. Simple appearing left sided renal cysts measuring up to 3.2 cm. Signed by: Dr. Sana Lizarraga MD on 06/10/2018 11:20 AM
--- NOTE | 2018-06-10 14:05 | Consultation ---
DATE OF CONSULTATION: June 10, 2018 ENDOCRINE CONSULTATION Thank you very much for referring this patient. This is a 52-year-old black gentleman who is referred to me for evaluation of diabetes mellitus. Patient was diagnosed to have diabetes about 4 to 5 months back and he takes metformin at home. Patient came to the hospital with a history of extreme weakness and shortness of breath. He had to be intubated because of shortness of breath. He has history of COPD. Patient is a nonsmoker. He also has a history of hypertension, hyperlipidemia, and degenerative joint disease, including severe arthritis of both groins. He is also status post knee replacement. During the hospital stay, his blood sugars have been staying between 180-250 range. His glycohemoglobin is 8.5. FAMILY HISTORY: The patient does have a family history of diabetes mellitus. PHYSICAL EXAMINATION GENERAL: Today, the patient is alert, awake, a little bit apprehensive. Moderately overweight. VITALS: His heart rate is around 78, blood pressure 140/80 mmHg. HEENT: Essentially unremarkable. Thyroid is palpable. Clinically, he is near thyroid. CHEST: Bilateral vesicular breathing. He has mild bronchospasm. CARDIOVASCULAR: First and 2nd heart sounds. There is no 3rd or 4th heart sound. Systolic murmur of grade 2/6. ABDOMEN: Patient has a slightly distended abdomen. 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 CLINICAL IMPRESSION 1. Diabetes mellitus, type 2 with complications. 2. Chronic obstructive pulmonary disease. 3. Chronic respiratory failure. 4. Hypertension. 5. Degenerative joint disease. PLAN: At this time is to monitor his blood sugars closely. Will start him on Janumet and also Lantus insulin at bedtime depending upon the blood sugars and sliding scale insulin. Thanks for referring this patient. I will be following this patient with you. Job#: [id number] DAT
[2018-06-10] MEDS: AZITHROMYCIN 500MG/NS 250 ML 250 ML IV SCH (15:38)
[2018-06-10] MEDS: METFORMIN HCL 500 MG TAB PO SCH (17:16)
--- NOTE | 2018-06-10 19:39 | Progress Note ---
DATE: June 10, 2018 PULMONARY MEDICINE PROGRESS NOTE SUBJECTIVE: Mr. Mcqueen was seen and examined at bedside. The patient continues to have some weakness. There is some associated shortness of breath. However, he continues to be spontaneously breathing and better than before. The patient was able to start tolerating initial dye that was given. The patient continues at this time without any evelyn respiratory distress. REVIEW OF SYSTEMS: No headaches, no bleeding. OBJECTIVE VITAL SIGNS: Noted per electronic record. GENERAL: No acute distress. Alert and calm. HEENT: Normocephalic, atraumatic. NECK: Supple. Throat midline. LUNGS: Bilateral air entry, rare rhonchi. CARDIOVASCULAR: S1, S2. No murmurs, rubs or gallops. ABDOMEN: Soft, nontender. EXTREMITIES: No clubbing, no cyanosis. There is 1+ edema. INTEGUMENT: No rashes or purpura. LABS: Potassium 2.4, BUN 31, creatinine 1.37. White count 9, hematocrit 44. IMPRESSION AND PLAN 1. Acute respiratory failure, extubated. 2. Acute kidney failure, improved. 3. Elevated AST, not otherwise specified. 4. Treat for pneumonia. 5. Possible chronic obstructive pulmonary disease with exacerbation. 6. Kyphosis, possible disorder of thoracic ribcage. 7. Suspect sleep apnea. 8. Allergies, possible asthma. Continue diuretics at this time. Continue IV antibiotics. The patient with IV fluids that were just stopped. Follow up his creatinine as well. Ultrasound did not show any chronic kidney disease. So avoid nephrotoxic agents. Mobilize him aggressively. Job#: [id number]
[2018-06-10] MEDS: INSULIN DETEMIR 100 UNIT/ML PEN SQ SCH (21:29)
[2018-06-10] MEDS: CEFTRIAXONE SOD 1 GM VIAL IV SCH (21:29)
[2018-06-11] VITALS (7 sets, daily range): BP systolic 126–140; BP diastolic 70–92
[2018-06-11] MEDS: ALBUTEROL/IPRATROPIUM 3 ML NEB NEB SCH ×4 (00:50→19:10)
[2018-06-11] MEDS: INSULIN REGULAR, HUMAN 100 UNIT/1 ML 3ML VIAL SQ SCH ×4 (08:00→21:30)
[2018-06-11] MEDS: METFORMIN HCL 500 MG TAB PO SCH ×2 (08:32→16:40)
[2018-06-11] MEDS: SITAGLIPTIN 100 MG TAB PO SCH (08:32)
[2018-06-11] MEDS: ACETAMINOPHEN 325 MG TAB PO PRN ×2 (10:24→21:15)
[2018-06-11] MEDS: AZITHROMYCIN 500MG/NS 250 ML 250 ML IV SCH (15:45)
[2018-06-11] MEDS: CEFTRIAXONE SOD 1 GM VIAL IV SCH (21:15)
[2018-06-11] MEDS ORDERED: PREDNISONE10 MG PO (21:23)
[2018-06-11] MEDS ORDERED: PROAIR HFA INH8.5 GM PEG (21:23)
[2018-06-11] MEDS ORDERED: SYMBICORT 16010.2 GM PO (21:23)
[2018-06-11] MEDS: INSULIN DETEMIR 100 UNIT/ML PEN SQ SCH (21:30)
--- NOTE | 2018-06-11 23:03 | Progress Note ---
DATE: June 11, 2018 PULMONARY MEDICINE PROGRESS NOTE SUBJECTIVE: Patient was seen and examined at bedside. Patient continues at this time to have mild shortness of breath and mild decreased functional endurance. Patient was eating well. Patient did have bowel movement. Patient continues at this time on oxygen. REVIEW OF SYSTEMS: No headaches, no bleeding. OBJECTIVE VITAL SIGNS: Afebrile. Vital signs noted per the chart record. GENERAL: No acute distress. Alert and calm. HEENT: Normocephalic, atraumatic. NECK: Supple. Throat midline. LUNGS: Bilateral air entry, rare rhonchi. CARDIOVASCULAR: S1, S2. No murmurs, rubs, or gallops. ABDOMEN: Soft, nontender. EXTREMITIES: No clubbing, no cyanosis. There is trace leg edema. INTEGUMENT: No rashes or purpura. LABS: Potassium 3.4, BUN 31, creatinine 1.4. White count 9, hematocrit 44. IMPRESSIONS 1. Acute respiratory failure, extubated. 2. Recurrent hospitalizations for respiratory issues. 3. Primarily asthma with exacerbation. 4. Obesity, possible obesity hypoventilation syndrome. 5. Lifetime nonsmoker. 6. Treat for possible asthma-like syndrome, not otherwise specified. 7. Hypoxemia, not on home oxygen. 8. Acute kidney failure, possible chronic kidney disease. PLAN 1. Continue antibiotics at this time. 2. Continue bronchodilators. 3. We will wean him oxygen or else he may need home oxygen evaluation. 4. Continue to mobilize him. 5. I discussed with him with his multiple recurrent and also near fatal respiratory failure events and hospitalizations, it is reasonable to give him continuous low-dose steroids until he makes his outpatient workup. He agrees to this and therefore I have written for prednisone 10 mg a day dosing after discharge. He needs full pulmonary evaluation including ruling out genetic COPD genotype as well as ensure there is no significant rheumatoid arthritis or other phenomenon as well as any asthma-like syndrome that is masquerading recurrent respiratory exacerbations. Job#: [id number] CF
[2018-06-12] VITALS (7 sets, daily range): BP systolic 122–179; BP diastolic 70–119
[2018-06-12] MEDS: ALBUTEROL/IPRATROPIUM 3 ML NEB NEB SCH ×3 (00:45→13:00)
[2018-06-12] MEDS: ACETAMINOPHEN 325 MG TAB PO PRN ×2 (01:20→08:11)
[2018-06-12] MEDS: METFORMIN HCL 500 MG TAB PO SCH (08:11)
[2018-06-12] MEDS: INSULIN REGULAR, HUMAN 100 UNIT/1 ML 3ML VIAL SQ SCH ×3 (08:11→16:30)
[2018-06-12] MEDS: SITAGLIPTIN 100 MG TAB PO SCH (08:11)
[2018-06-12] MEDS ORDERED: HYDROCODONE/APAP 5MG-325MG TAB PO PRN (10:15)
--- NOTE | 2018-06-12 14:18 | Progress Note ---
DATE: June 12, 2018 PULMONARY MEDICINE PROGRESS NOTE SUBJECTIVE: Mr. Mcqueen was seen and examined at bedside. He has walked around independently he says. He had a bowel movement. He is eating well. The patient is on 2 L per minute of oxygen right now, although he did reportedly have an oxygen assessment yesterday that saw he did not need home oxygen. REVIEW OF SYSTEMS: No chest pain. No headaches. OBJECTIVE VITAL SIGNS: Afebrile. Vital signs noted per the electronic record. GENERAL: No acute distress. Alert and calm. HEENT: Normocephalic, atraumatic. NECK: Supple. Throat midline. LUNGS: Bilateral air entry. Decreased breath sounds mildly. Rare rhonchi. CARDIOVASCULAR: S1, S2. No murmurs, rubs, or gallops. ABDOMEN: Soft, nontender. EXTREMITIES: No clubbing, no cyanosis. There is 1+ edema in the legs. INTEGUMENT: No rashes. No purpura. LABS: No new updates. IMPRESSION AND PLAN 1. Acute respiratory failure, extubated. 2. Possible asthma with exacerbation. 3. Several allergies. 4. Obesity, possible obesity-hypoventilation. 5. Lifetime nonsmoker. 6. Acute kidney failure, improved. Patient requires a formal oxygen evaluation. Continue steroids until outpatient appointment with me. The patient will continue bronchodilators. The patient is to continue to mobilize. Possible discharge soon. Job#: [id number]
[2018-06-12] MEDS: AZITHROMYCIN 500MG/NS 250 ML 250 ML IV SCH (14:45)
--- NOTE | 2018-08-06 01:07 | Discharge Summary ---
CHIEF COMPLAINT: Respiratory failure. FINAL DIAGNOSES 1. Juwqq-vkld-khwrwws congestive heart failure. 2. Obesity. 3. Diabetes type 2. DISPOSITION: Home. HOSPITAL COURSE: A 52-year-old male with known history of chronic systolic congestive heart failure, hypertension, diabetes type 2, brought to the ER with a 2-day history of progressive shortness of breath and chest congestion. Evaluated in the ER. Noted to have an O2 sat at 78%. Was intubated in the ER, put on mechanical vent. According to the patient's , he has been in and out of hospital several times since November of this year when he was diagnosed with congestive heart failure the initial time. His chest was revealing inspiratory crackles. Lower extremities were showing 1+ pitting edema. With further review and evaluation, patient was admitted to ICU regarding evidence of acute respiratory failure, requiring vent support; zwkwi-tokm-xysjmtm congestive heart failure; diabetes type 2; cardiomyopathy; hypertension. Will currently on vent management. Will be requesting a pulmonary follow. Will be on IV Lasix. Will request a cardiology follow as well. Patient was in ICU initially, being maintained n.p.o. status. Was able to be extubated successfully early on. He was receiving respiratory treatments, was on azithromycin for antibiotic management as well as ceftriaxone. Given Lovenox. Insulin management was continuing routinely. Was also receiving Lasix. Laboratory studies were showing stable electrolytes. Kidney functions, BUN 42, creatinine 3.16, glucose 212. CBC was stable. Patient was also receiving O2 nasal cannula, was being started up on a 2-g sodium diet. He was beginning to feel much better. The date after his admission, he had a rapid event which required the vent presentation as mentioned earlier. The patient as mentioned was upgraded to ICU. As mentioned, he was able to be successfully extubated. He was continued on his Lasix. Was undergoing endocrinology follow as well due to his diabetes. Was being reviewed by Dr. Turner. Noted that the hemoglobin A1c was at 8.6%; and with his review, the patient will be started on Janumet. Undergo diabetic education. Was also being started on insulin management t.i.d. a.c. and nightly 10 units of detemir nightly. Was receiving metformin as well as sitagliptin. Was able to be out of ICU to the med/surg floor where his care was continuing. He was showing some mild elevation of his liver enzymes while on the med floor. His AST was 143, ALT 58, and alkaline phosphatase 67. He was showing that was able to ambulate without being short of breath. He was cleared for discharge. He will be able to be followed up as an outpatient. Final BUN 31, creatinine 1.37, and glucose 216. Released home on June 12, 2018, in stable condition. Saturation testing was conducted on the patient prior to being discharged. It was noted that his O2 saturation at rest on room air was at 94%. O2 saturation with exercise on room air was 94%. EKGs are showing normal sinus rhythm, right-mascorro axis. Lower extremity Dopplers were negative evidence for DVT. Echocardiogram showed an ejection fraction of 45% to 50%. No evidence of pericardial effusion. Was discharged from facility. We will continue on ADA diet. No equipment or supplies necessary. No drains or Morales were needed. Patient will be on a prescription of 1. Levaquin 500 mg 1 tablet p.o. daily. 2. Januvia 100 mg once daily. 3. Prednisone 10 mg daily for 30 days. 4. Symbicort 160 per 4.5 two inhalations twice a day. 5. Albuterol sulfate ProAir HFA inhaler 2 inhalations every 4 hours as needed for shortness of breath. It was noted that he has a non-documented PCP on his demographic sheet. It was instructed he may follow up with me in my office within 2 to [address] Rivera, pulmonary, as instructed. Discussions will be made for evaluation for obstructive sleep apnea. Dictated by: MILENA Yanez Job#: [id number]
== END 2018-06-12 17:44 | disposition home or self-care (01) | DRG 208 ==
LOC: FSED 22:10 → ERHOLD 23:16 → ICU 06-08 01:10 → MED/SURG2 06-10 18:22
PROC: 5A1945Z Respiratory Ventilation, 24-96 Consecutive Hours (ICD-10-PCS; principal; 2018-06-07)
PROC: 0BH17EZ Insertion of Endotracheal Airway into Trachea, Via Natural or Artificial Opening (ICD-10-PCS; 2018-06-07)
DX: J96.21 Acute and chronic respiratory failure with hypoxia (principal); I50.23 Acute on chronic systolic (congestive) heart failure; E66.2 Morbid (severe) obesity with alveolar hypoventilation; G93.40 Encephalopathy, unspecified; N17.9 Acute kidney failure, unspecified; J44.1 Chronic obstructive pulmonary disease with (acute) exacerbation; I13.0 Hypertensive heart and chronic kidney disease with heart failure and stage 1 through stage 4 chronic kidney disease, or unspecified chronic kidney disease; Z68.41 Body mass index [BMI] 40.0-44.9, adult; E78.5 Hyperlipidemia, unspecified; Z79.84 Long term (current) use of oral hypoglycemic drugs; M19.90 Unspecified osteoarthritis, unspecified site; K31.9 Disease of stomach and duodenum, unspecified; G89.29 Other chronic pain; M40.204 Unspecified kyphosis, thoracic region; J30.2 Other seasonal allergic rhinitis; E11.22 Type 2 diabetes mellitus with diabetic chronic kidney disease; N18.3 Chronic kidney disease, stage 3 (moderate)
CPT/HCPCS: 36415; 36600; 71045; 76770; 80053; 81001; 82436; 82550; 82553; 82570; 82805; 82948; 83036; 83690; 83735; 83880; 84100; 84300; 84443; 84484; 85025; 85379; 85610; 85730; 87040; 87070; 87071; 87086; 87186; 87205; 87390; 93005; 93306; 93970; 94002; 94003; 94640; 94644; 94660; 96372; 99284; G0433; G0435; J0456; J0696; J1650; J1940; J2930; J7030; J7070

== ENCOUNTER 2018-07-04 05:01 | Inpatient (IN) | payer MEDICARE ==
[2018-07-04] VITALS (53 sets, daily range): BP systolic 112–169; BP diastolic 68–113
[~2018-07-04] VITALS: Ht 180.3 cm; Wt 140.3 kg
[~2018-07-04 05:01] MED LIST changes: +AMBIEN5 MG PO; +AMITRIPTYLINE H10 MG PO; +COREG12.5 MG PO; -ETOMIDATE 40 MG/ 20ML VIAL IV ONE; +LASIX40 MG PO; +LIPITOR20 MG PO; +MELOXICAM7.5 MG PO; +METFORMIN HCL500 MG PO; +NORCO 5-325 TA1 EACH PO; +PREDNISONE10 MG PO; +PROAIR HFA INH8.5 GM PEG; -SUCCINYLCHOLINE 200 MG/10 ML SYR ONE; +SYMBICORT 16010.2 GM PO; +XANAX1 MG PO
[2018-07-04] MEDS ORDERED: ALBUTEROL SULF 0.083% NEB SOLN 3 ML NEB NEB STA (05:18)
[2018-07-04] MEDS ORDERED: IPRATROPIUM BROMIDE 0.02% 2.5 ML NEB NEB ONE (05:30)
[2018-07-04] MEDS ORDERED: METHYLPREDNISOLONE SOD SUCC 125 MG/2ML VIAL IV ONE (05:30)
[2018-07-04 05:43] LABS: BASOPHILS % 0.4 % (0.0-1.0); EOSINOPHILS % 0.4 % (0.0-6.0); HEMATOCRIT 46.8 % (38.2-49.6); HEMOGLOBIN 14.7 g/dL (14.0-18.0); LYMPHOCYTES # (AUTO) 2.3 (1.0-3.2); MEAN CORPUSCULAR HEMOGLOBIN 28.8 pg (28-32); MEAN CORPUSCULAR HGB CONC 31.4 g/dL (31-35); MEAN CORPUSCULAR VOLUME 91.8 fL (81-99); MONOCYTES # (AUTO) 0.5 (0.2-0.8); MONOCYTES % 7.2 % (4.4-11.3); NEUTROPHILS # (AUTO) 4.1 (2.1-6.9); NEUTROPHILS % 58.9 % (38.7-80.0); PLATELET COUNT 254 x10e3/uL (140-360); RED CELL DISTRIBUTION WIDTH 13.7 % (11.7-14.4)
[2018-07-04 06:08] LABS: ALANINE AMINOTRANSFERASE 16 IU/L (0-55); ALKALINE PHOSPHATASE 77 IU/L (40-150); ANION GAP 13.4 mmol/L (8-16); BLOOD UREA NITROGEN 10 mg/dL (7-26); BUN/CREATININE RATIO 12 (6-25); CALCIUM 10.3 mg/dL (8.4-10.2); CARBON DIOXIDE 29 mmol/L (22-29); CHLORIDE 97 mmol/L (98-107); CREATINE KINASE 152 IU/L (30-200); CREATININE, SERUM 0.86 mg/dL (0.72-1.25); EST GLOMERULAR FILTRATION RATE > 60 ML/MIN (60-); GLUCOSE 209 mg/dL (74-118); POTASSIUM 4.4 mmol/L (3.5-5.1); SODIUM 135 mmol/L (136-145)
[2018-07-04 06:32] LABS: ABG PH 7.31 (7.31-7.41)
[2018-07-04 06:33] LABS: ABG HCO3 34 mmol/L (23-28); ABG PCO2 67 mmHg (41-51); ABG PO2 187 mmHg (80-105)
[2018-07-04] MEDS ORDERED: ALBUTEROL/IPRATROPIUM 3 ML NEB NEB SCH (07:00)
[2018-07-04] MEDS ORDERED: SODIUM CHLORIDE FLUSH 10 ML SYR INJ PRN (07:00)
[2018-07-04] MEDS ORDERED: DEXTROSE 50% SYRINGE 50 ML IV PRN (07:00)
--- NOTE | 2018-07-04 07:02 | Diagnostic Imaging Report ---
EXAM: CHEST SINGLE (PORTABLE), AP 1 view INDICATION: Shortness of breath, COPD COMPARISON: AP view of the chest June 10, 2018 FINDINGS: LINES/TUBES: None LUNGS: No consolidations or edema. Linear atelectasis left midlung. PLEURA: No effusions or pneumothorax. HEART AND MEDIASTINUM: Normal size and contour. BONES AND SOFT TISSUES: No acute findings. IMPRESSION: Left lung subsegmental atelectasis. Signed by: Dr. Janki Devi M.D. on 07/04/2018 6:58 AM
[2018-07-04] MEDS ORDERED: INSULIN REGULAR, HUMAN 100 UNIT/1 ML 3ML VIAL SQ SCH (07:30)
[2018-07-04] MEDS ORDERED: SUCCINYLCHOLINE CHLORIDE 20 MG/ML 10ML VIAL IV STA (08:04)
[2018-07-04] MEDS ORDERED: ETOMIDATE 2 MG/ML 10 ML INJ IV STA (08:04)
[2018-07-04] MEDS ORDERED: MIDAZOLAM HCL 2 MG/2 ML VIAL ONE (08:09)
[2018-07-04] MEDS ORDERED: MIDAZOLAM HCL 2 MG/2 ML VIAL IV STA (08:14)
[2018-07-04] MEDS ORDERED: FENTANYL CITRATE INJ 2,000 MCG in SODIUM CHLORIDE 0.9% 250ML 210 ML IV PRN ×4 (08:15)
[2018-07-04] MEDS ORDERED: MIDAZOLAM HCL 25 MG in SODIUM CHLORIDE 0.9% 50ML 45 ML IV PRN (08:15)
[2018-07-04] MEDS ORDERED: ALBUTEROL/IPRATROPIUM 3 ML NEB ONE (08:26)
[2018-07-04] MEDS: PROPOFOL IV EMULSION 10MG/ML 100 ML IV SCH ×3 (08:36→23:41)
[2018-07-04 09:44] LABS: ABG PCO2 48 mmHg (41-51); ABG PH 7.38 (7.31-7.41); ABG PO2 97 mmHg (80-105)
[2018-07-04 09:45] LABS: ABG HCO3 28 mmol/L (23-28)
--- NOTE | 2018-07-04 10:05 | Diagnostic Imaging Report ---
PROCEDURE: A single AP view of the chest. COMPARISON: Chest radiograph 06/10/18. INDICATIONS: INTUBATION FINDINGS: Lines/tubes: ET tube terminates in the proximal right mainstem bronchus. Enteric tube courses into the stomach, the tip is not seen. Lungs: Low lung volumes. Patchy opacities at the lung bases, left greater than right. Linear subsegmental atelectasis in the left lower lung. Pleura: There is no pleural effusion or pneumothorax. Heart and mediastinum: The cardiomediastinal silhouette is unremarkable. Bones: No acute bony abnormality. Degenerative changes of the shoulders. IMPRESSION: Lines and tubes as above. ET tube terminates in the proximal right mainstem bronchus. Recommend retraction by at least 3 cm and repeat radiograph. No evidence of pneumothorax. Low lung volumes with patchy opacities at the lung bases which could represent atelectasis or aspiration in the appropriate clinical context. Linear subsegmental atelectasis at the left lung base. Above findings discussed with ED Dr. Enriquez, who indicated that the communication was understood on 07/04/18 at 1002 AM. Dictated by: CINDY HOLGUIN M.D. on 07/04/2018 at 10:15 Electronically approved by: CINDY HOLGUIN M.D. on 07/04/2018 at 10:15
--- NOTE | 2018-07-04 10:09 | Diagnostic Imaging Report ---
PROCEDURE:X-RAY ABDOMEN - KUB COMPARISON:None. INDICATIONS:NG TUBE PLACEMENT FINDINGS: Enteric tube terminates in the expected location of the stomach, the side port is below the GE junction. Non-specific bowel gas pattern. No evidence of acute bony abnormality. Motion artifact limits evaluation for calcifications. A 1.2 cm right sided calcification lateral to the L1/L2 interspace may represent urinary stone. Please refer to the concurrently performed chest radiograph for details of intrathoracic findings. CONCLUSION: Enteric tube terminates in the stomach. Dictated by: CINDY HOLGUIN M.D. on 07/04/2018 at 10:19 Electronically approved by: CINDY HOLGUIN M.D. on 07/04/2018 at 10:19
[2018-07-04 10:54] LABS: ABG HCO3 32 mmol/L (23-28); ABG PCO2 65 mmHg (41-51); ABG PO2 118 mmHg (80-105)
[2018-07-04] MEDS: CARVEDILOL 12.5 MG TAB PO SCH ×2 (12:00→21:12)
[2018-07-04] MEDS: METFORMIN HCL 500 MG TAB PO SCH (12:30)
[2018-07-04] MEDS ORDERED: IPRATROPIUM BROMIDE 0.02% 2.5 ML NEB NEB SCH (13:00)
[2018-07-04] MEDS ORDERED: ALBUTEROL SULF 0.083% NEB SOLN 3 ML NEB NEB SCH (13:00)
[2018-07-04 13:05] LABS: CLARITY,URINE SL CLOUDY (CLEAR); COLOR,URINE YELLOW (YELLOW); LEUKOCYTE ESTERASE ,URINE NEGATIVE (NEGATIVE); NITRITE,URINE NEGATIVE (NEGATIVE)
[2018-07-04 13:06] LABS: BILIRUBIN,URINE NEGATIVE (NEGATIVE); KETONES,URINE TRACE (NEGATIVE); PROTEIN,URINE DIPSTICK 2+ (NEGATIVE); URINE UROBILINOGEN 0.2 mg/dL (0.2 - 1)
[2018-07-04] MEDS ORDERED: ALBUTEROL/IPRATROPIUM 3 ML NEB NEB PRN (13:15)
[2018-07-04 13:19] LABS: BACTERIA,URINE RARE /HPF; EPITHELIAL CELLS,URINE FEW /LPF; RBC,URINE 0-5 /HPF (0-5)
[2018-07-04 13:28] LABS: AMPHETAMINES SCREEN,URINE NEGATIVE (NEGATIVE); BENZODIAZEPINES SCREEN,URINE POSITIVE (NEGATIVE); PHENCYCLIDINE SCREEN,URINE NEGATIVE (NEGATIVE)
--- NOTE | 2018-07-04 13:45 | Progress Note ---
DATE: July 04, 2018 PULMONARY MEDICINE PROGRESS NOTE SUBJECTIVE: Patient was seen and examined at bedside. Medicines were reviewed, including his notation, he is on Xanax as an outpatient, although I did not see the bottle. The patient had just filled a bottle of Ambien on June 22, 2018, and the patient finished a bottle of [place], and these bottles were emptied after being dispensed on June 22, 2018. Patient otherwise in stable condition now on sedation. IMPRESSION AND PLAN 1. Acute respiratory failure, intubated. 2. Treat for asthma with exacerbation. 3. Other components of respiratory failure, under investigation. Possible upper airway resistance/obstruction. 4. Possible substance dependency. Check complement levels. Check rheumatoid factor level. Anticipation that the upper airway will need extubated. The patient furthermore needs urinary drug screen for now, and will investigate what happened to his medicines. Thirty minutes in direct care today. The patient in improved condition. Job#: [id number] DAT
[2018-07-04 14:02] LABS: CREATINE KINASE MB 3.4 ng/mL (0-5.0)
[2018-07-04] MEDS: SODIUM CHLORIDE 0.45% 1,000 ML IV SCH (14:04)
[2018-07-04] MEDS: METHYLPREDNISOLONE SOD SUCC 40 MG/ML VIAL IV SCH ×2 (14:04→19:29)
[2018-07-04] MEDS ORDERED: SUCCINYLCHOLINE CHLORIDE 20 MG/ML 10ML VIAL IV ONE (14:20)
[2018-07-04] MEDS ORDERED: ETOMIDATE 40 MG/ 20ML VIAL IV ONE (14:20)
--- NOTE | 2018-07-04 14:29 | History and Physical ---
CHIEF COMPLAINT: Shortness of breath. HISTORY: Mr. Mcqueen is a pleasant 52-year-old gentleman with shortness of breath. Patient is well known to me from multiple clinical encounters, and he is having some shortness of breath. It is worsened by cough. He just had a hospitalization a month ago with similar symptoms and required intubation at that time. As that was the first time I met him at that time, we made decision to discharge him on certain medications including outpatient continued doses of steroids until the workup was complete and there was further clinical evaluation. Patient without any known inciting factor and this shortness of breath started. Patient came to the emergency room. ABG was 7.31/67/187. BNP was 113. CBC is without eosinophilia noted. He was placed on BiPAP for attempted rescue. However, due to worsening shortness of breath he was eventually intubated. PAST MEDICAL HISTORY: Hypertension, diabetes, fluid overload, knee and ankle surgeries, obesity, primarily asthma with exacerbation. MEDICATIONS: Medications include albuterol, alprazolam was reported, amitriptyline, atorvastatin, Symbicort, [place], prednisone 10 mg, Zolpidem. ALLERGIES: LISINOPRIL. SOCIAL HISTORY: Lifetime nonsmoker. No drinking, no drugs. Girlfriend is often present at bedside. FAMILY HISTORY: Noncontributory. REVIEW OF SYSTEMS: Cannot get as he is intubated. PHYSICAL EXAMINATION VITAL SIGNS: Patient with afebrile status. Vital signs noted per record. HEENT: Normocephalic, atraumatic. NECK: Supple. Throat midline. LUNGS: Bilateral air entry, mostly decreased breath sounds, difficult lung auscultation. CARDIOVASCULAR: S1 and S2. No murmurs, rubs or gallops. ABDOMINAL: Soft, nontender. EXTREMITIES: No clubbing, no cyanosis. There is no edema. INTEGUMENT: No rash, no purpura. LABS: Potassium 4.4, creatinine 0.9. White count 7, hematocrit 47, platelets 254. IMPRESSION AND PLAN 1. Acute respiratory failure. 2. Asthma with exacerbation. 3. Obesity, possible obesity-hypoventilation. 4. Hypertension. 5. Diabetes. 6. Reported fluid overload in the past. 7. Possible obstructive sleep apnea. Patient remains a very complicated asthma patient. Due to readmissions, will check off early alpha-1 antitrypsin levels, complement levels, IgE level. Patient will also get rheumatoid assessment. Continue ventilator today. Continue steroids. Hopeful extubation tomorrow. Will continue to follow up closely. Will need to complete some of the testing as outpatient. We will continue care with other physicians that know the patient very well. Job#: [id number] EV
[2018-07-04] MEDS: ENOXAPARIN SOD INJ 40 MG/0.4 ML SYR SC SCH (19:29)
[2018-07-04] MEDS: FUROSEMIDE 40 MG TAB PO SCH (19:29)
[2018-07-04] MEDS: INSULIN REGULAR, HUMAN 100 UNIT/1 ML 3ML VIAL SQ SCH (19:39)
[2018-07-04] MEDS: MELOXICAM 7.5 MG TAB PO SCH (21:12)
[2018-07-04 21:45] LABS: CREATINE KINASE MB 2.2 ng/mL (0-5.0)
[2018-07-05] VITALS (80 sets, daily range): BP systolic 106–162; BP diastolic 61–135
[2018-07-05] MEDS: METHYLPREDNISOLONE SOD SUCC 40 MG/ML VIAL IV SCH ×4 (00:21→17:33)
[2018-07-05] MEDS: INSULIN REGULAR, HUMAN 100 UNIT/1 ML 3ML VIAL SQ SCH ×3 (00:29→12:00)
[2018-07-05] MEDS: SODIUM CHLORIDE 0.45% 1,000 ML IV SCH ×2 (01:15→11:29)
[2018-07-05] MEDS: PROPOFOL IV EMULSION 10MG/ML 100 ML IV SCH (02:35)
[2018-07-05 04:46] LABS: HEMATOCRIT 42.8 % (38.2-49.6); HEMOGLOBIN 13.7 g/dL (14.0-18.0); LYMPHOCYTES # (AUTO) 1.8 (1.0-3.2); LYMPHOCYTES % 19.3 % (18.0-39.1); MEAN CORPUSCULAR HEMOGLOBIN 28.8 pg (28-32); MEAN CORPUSCULAR VOLUME 90.1 fL (81-99); MONOCYTES # (AUTO) 0.3 (0.2-0.8); MONOCYTES % 3.6 % (4.4-11.3); NEUTROPHILS % 76.9 % (38.7-80.0); PLATELET COUNT 270 x10e3/uL (140-360); RED BLOOD COUNT 4.75 x10e6/uL (4.3-5.7); RED CELL DISTRIBUTION WIDTH 13.7 % (11.7-14.4)
[2018-07-05 05:05] LABS: ANION GAP 15.7 mmol/L (8-16); BLOOD UREA NITROGEN 23 mg/dL (7-26); BUN/CREATININE RATIO 21 (6-25); CALCIUM 9.8 mg/dL (8.4-10.2); CARBON DIOXIDE 25 mmol/L (22-29); CHLORIDE 98 mmol/L (98-107); CREATININE, SERUM 1.12 mg/dL (0.72-1.25); EST GLOMERULAR FILTRATION RATE > 60 ML/MIN (60-); GLUCOSE 263 mg/dL (74-118); POTASSIUM 4.7 mmol/L (3.5-5.1); SODIUM 134 mmol/L (136-145)
--- NOTE | 2018-07-05 06:49 | Diagnostic Imaging Report ---
EXAM: CHEST SINGLE (PORTABLE), AP 1 view INDICATION: Respiratory failure COMPARISON: AP view of the chest July 04, 2018 FINDINGS: LINES/TUBES: Interval placement of endotracheal tube with tip terminating 5 cm above the blanche. Nasal/orogastric tube tip courses below the diaphragm out of field of view. LUNGS: Low inspiration with bibasilar atelectasis. PLEURA: No effusions or pneumothorax. HEART AND MEDIASTINUM: Normal for technique. BONES AND SOFT TISSUES: No acute findings. IMPRESSION: Interval placement of endotracheal tube with tip terminating 5 cm above the blanche. Nasal/orogastric tube tip courses below the diaphragm out of field of view. Low inspiration with bibasilar atelectasis. Signed by: Dr. Janki Devi M.D. on 07/05/2018 6:46 AM
[2018-07-05] MEDS: METFORMIN HCL 500 MG TAB PO SCH (08:00)
[2018-07-05] MEDS: FAMOTIDINE 20 MG/2 ML VIAL IV SCH (09:00)
[2018-07-05] MEDS: FUROSEMIDE 40 MG TAB PO SCH ×2 (09:00→17:33)
[2018-07-05] MEDS: CARVEDILOL 12.5 MG TAB PO SCH ×2 (09:00→20:56)
[2018-07-05] MEDS ORDERED: FUROSEMIDE INJ 10 MG/ML 2 ML VIAL IV ONE (12:15)
[2018-07-05] MEDS ORDERED: ALBUTEROL/IPRATROPIUM 3 ML NEB NEB PRN (12:30)
--- NOTE | 2018-07-05 13:24 | Progress Note ---
DATE: July 05, 2018 PULMONARY MEDICINE PROGRESS NOTE SUBJECTIVE: Mr. Mcqueen was seen and examined at bedside. He continues on ventilator at this time. He failed wean earlier today, but it was unclear what limited him. He was replaced on ventilator settings when I arrived in person. It was seen that patient likely had anxiety in morning as he was breathing 24 per minute on wean that I directly supervised. Patient is awake, writing notes. Chest x-ray limited due to body positioning. He continues on steroids at this time. REVIEW OF SYSTEMS: No headaches. No rash. OBJECTIVE VITALS: Afebrile. Vital signs noted per electronic record. GENERAL: No acute distress, alert and calm. HEENT: Normocephalic, atraumatic. NECK: Supple. Throat midline. LUNGS: Bilateral air entry, limited but no evelyn wheezes. CARDIOVASCULAR: S1 and S2. No murmurs, rubs or gallops. ABDOMEN: Soft, nondistended. EXTREMITIES: No clubbing, no cyanosis, there is no edema. INTEGUMENT: No rash. No purpura. LABS: 4.7 potassium, 134 sodium, 23 BUN, 1.1 creatinine. 9 white count, 43 hematocrit. IMPRESSION AND PLAN 1. Acute respiratory failure, intubated. 2. Asthma with exacerbation. 3. Chronic pain, quickly going through medicine bottles. 4. Obesity, possible obesity hypoventilation. 5. Obstructive sleep apnea likely. 6. Reported fluid overload in the past. 7. Hypertension, diabetes. Endocrinology to examine diabetes. Patient can continue on steroids at this point and he remains a high reintubation risk over the near term due to his pattern of hospitalizations and intubations in the past. Bronchodilators continue. Will escalate his bronchodilators to q.4 hours now that he is going to be extubated. Follow up closely and high chance of extubation given that, or supervise a wean. Prior to extubating, we will drain out his stomach given the small distention he has and we will give him an extra dose of Lasix. Greater than 30 minutes in direct care today, multiple evaluations. Job#: [id number] JAIDA
--- NOTE | 2018-07-05 14:46 | Consultation ---
DATE OF CONSULTATION: July 05, 2018 ENDOCRINE CONSULTATION This is a patient of Dr. Rivera. Thank you very much for referring this patient. HISTORY OF PRESENT ILLNESS: This is a 52-year-old black gentleman who is referred to me for evaluation of uncontrolled diabetes mellitus. Most of the history is available from the chart and some from the patient. Patient is on the vent at this time. Patient is a known case of diabetes mellitus type 2. He has multiple complications from diabetes including severe diabetic sensory neuropathy. He is supposed to be taking the metformin and the Januvia at home. Patient came to the hospital with the history of shortness of breath, which is getting progressively worse. He came to the emergency room, where patient had to be started on the ventilator because of hypoxemia. Patient has a longstanding history of hypertension, congestive cardiac failure, chronic back pain, and anxiety episodes. PHYSICAL EXAMINATION: GENERAL: Today the patient is alert, awake. He is on the vent at this time. VITAL SIGNS: He is moderately overweight. His heart rate is around 78, blood pressure 140/80 mmHg. HEENT: Examination essentially unremarkable. Thyroid is palpable. Clinically he is near euthyroid. CHEST: Bilateral vesicular breathing. He has bilateral bronchospasm. CARDIAC: Both 1st and 2nd heart sounds. There is no 3rd or 4th heart sound. Ejection sound grade 2/6. EXTREMITIES: Patient has evidence of diabetic sensory neuropathy in both lower extremities. CLINICAL IMPRESSION: 1. Acute respiratory failure on the vent. 2. Chronic obstructive pulmonary disease. 3. History of congestive cardiac failure. 4. Hypertension. 5. Diabetes mellitus type 2, uncontrolled with complications precipitated by steroid intake. The plan at this time is to start him on the combination of the Levemir and the Humalog insulin. Monitor his blood sugars closely and adjust the insulin dose. Hopefully the patient will be extubated soon. Thanks for referring this patient. I will be following this patient with you. Job#: [id number] EV
[2018-07-05 14:52] LABS: FREE T4 (FREE THYROXINE) 0.84 ng/dL (0.9-1.8); THYROID STIMULATING HORMONE 1.336 uIU/mL (0.350-4.940)
[2018-07-05] MEDS: INSULIN LISPRO 100 UNIT/1 ML 3ML VIAL SQ SCH ×2 (16:30→20:59)
[2018-07-05] MEDS: ENOXAPARIN SOD INJ 40 MG/0.4 ML SYR SC SCH (17:33)
[2018-07-05] MEDS: AMLODIPINE BESYLATE 5 MG TAB PO SCH (19:50)
[2018-07-05] MEDS: LORAZEPAM 1 MG TAB PO SCH (20:56)
[2018-07-05] MEDS: MELOXICAM 7.5 MG TAB PO SCH (20:56)
[2018-07-05] MEDS ORDERED: INSULIN DETEMIR 100 UNIT/ML PEN SQ SCH ×2 (21:00)
[2018-07-06] VITALS (15 sets, daily range): BP systolic 132–148; BP diastolic 37–102
[2018-07-06] MEDS: METHYLPREDNISOLONE SOD SUCC 40 MG/ML VIAL IV SCH ×3 (00:13→12:04)
--- NOTE | 2018-07-06 01:22 | Consultation ---
DATE OF CONSULTATION: July 05, 2018 CARDIAC CONSULTATION REASON FOR CONSULTATION: Chest pain following extubation. HISTORY: This is a poor historian 52-year-old gentleman whom in the last 2 years had 4 admissions to the hospital; 2 in [facility] and the last 2 were at this institution. He needs to be intubated on last admission and this admission. His main problem is severe hypertension in his young age "bad lungs.? He came to this institution. He was in severe respiratory distress. His ABG showed pH of 7.31, pCO2 of 67, and pO2 of 187. It seems to be purely respiratory failure since his BNP was only 113. His cardiac enzymes 3 sets are normal. He had an echocardiogram last admission, which showed ejection fraction of 50%, but it was a difficult study. Patient came to this institution as I mentioned with respiratory failure. He needed to be intubated. Today, he is extubated. He is followed by Dr. Rivera. As I mentioned, his ABG showed pH of 7.31, pCO2 of 67, pO2 of 187, and BNP of only 113; 3 sets of cardiac enzymes are all normal. He is diabetic. He is seen also by Dr. Turner. His chest x-ray on admission showed no pleural effusion. Cardiomegaly was noted, but it was portable film. Cardiac consultation obtained today because of patient having chest pain following extubation. His chest pain is where the tube ends in his throat. It does not seem to be anginal chest pain. Of note, patient having hypertension since young age. He is on several medications. He does have also "bad lungs? but no one can tell him why. He is morbidly obese. His activities are limited. For the last 2 to 3 years whenever he tried to do activity, he had severe shortness of breath. He is class III to early class IV. He does have episodes of wheezes and not feeling well. PAST MEDICAL HISTORY 1. Hypertension. 2. Diabetes mellitus. 3. Left knee replacement which "went bad.? 4. Bilateral ankle surgery. 5. Obesity. 6. Asthma with several episodes of exacerbation. ALLERGIES: LISINOPRIL. HOME MEDICATIONS: Lasix 40 mg twice a day, metformin, and Coreg 12.5 mg a day. SOCIAL HISTORY: He is . He never smoked. He does not drink alcohol. FAMILY HISTORY: Father at age 53 with gunshot wound. Mother doing well until recently. She is currently in hospital with CVA. Four brothers; 1 brother is diabetic. One sister; she got some illness, questionable details. Five children. PHYSICAL EXAMINATION VITAL SIGNS: Height of 5 feet 11 inches, weight is greater than 300 pounds, blood pressure is 150/110, heart rate of 70, and respiratory rate of 18. HEENT: Pupils are reactive. NECK: No elevation of jugular venous pulsation. No bruit. CHEST: Decreased lung expansion, but no crackles, no rales, and no wheezes. HEART: Distant heart sounds. ABDOMEN: Soft. EXTREMITIES: Scar of knee surgery. No gross evidence of deep venous thrombosis. NEUROLOGIC: Awake, alert, and oriented. LAB DATA: BNP of only 113. Cardiac enzymes are all normal. ABG showed pH of 7.31, pCO2 of 67, and pO2 of 187. TSH of 1.33. IMPRESSION AND PLAN 1. Respiratory failure. It seems to be pure respiratory failure based on BNP of 113 and normal cardiac enzymes and chest x-ray finding, most likely secondary to asthma exacerbation. 2. Obesity. 3. Hypertension. 4. Diabetes mellitus. 5. Sleep apnea. 6. Debility and limited activity. 7. Arthritis. 8. Chest pain following extubation, seems to be from the ET tube. Cardiac-almeida, definitely patient is at risk of having heart disease but currently his major problem seems to be pulmonary. He is already on Coreg, which we will continue. We need to better control his blood pressure. He is allergic to SARY INHIBITORS. We will continue his diuretics. I will add calcium channel stan to Norvasc twice a day. We will try to better control his blood pressure. We will consider further cardiac workup when patient's condition improves. Job#: [id number] STEPHEN
[2018-07-06] MEDS: PROPOFOL IV EMULSION 10MG/ML 100 ML IV SCH (07:32)
[2018-07-06] MEDS: INSULIN LISPRO 100 UNIT/1 ML 3ML VIAL SQ SCH ×5 (07:45→20:56)
[2018-07-06] MEDS: FAMOTIDINE 20 MG/2 ML VIAL IV SCH (07:59)
[2018-07-06] MEDS: LORAZEPAM 1 MG TAB PO SCH ×3 (07:59→20:56)
[2018-07-06] MEDS: METFORMIN HCL 500 MG TAB PO SCH (07:59)
[2018-07-06] MEDS: FUROSEMIDE 40 MG TAB PO SCH (08:00)
[2018-07-06] MEDS: AMLODIPINE BESYLATE 5 MG TAB PO SCH ×2 (08:00→17:26)
[2018-07-06] MEDS: CARVEDILOL 12.5 MG TAB PO SCH ×2 (08:00→20:56)
[2018-07-06] MEDS: HYDROCODONE/APAP 5MG-325MG TAB PO PRN (13:05)
[2018-07-06] MEDS ORDERED: CHLORASEPTIC SPRAY 177 ML BTL MM PRN (13:30)
[2018-07-06] MEDS ORDERED: FUROSEMIDE INJ 10 MG/ML 4 ML VIAL IV ONE ×2 (14:00→14:30)
--- NOTE | 2018-07-06 14:14 | Progress Note ---
DATE: July 06, 2018 PULMONARY MEDICINE PROGRESS NOTE SUBJECTIVE: Mr. Mcqueen was seen and examined at bedside. He continues to have progress with x-ray yesterday and continues to spontaneously breathing. He is on 3 liters per minute by nasal cannula this time. He has intermittent chest pains noted. Patient at the same time has not walked yet, but he is eating. REVIEW OF SYSTEMS: No headaches. No rash. OBJECTIVE VITALS: Afebrile. Vital signs noted per electronic record. GENERAL: No acute distress, alert and calm. HEENT: Normocephalic, atraumatic. NECK: Supple. Throat midline. LUNGS: Bilateral air entry, limited auscultation, decreased air entry. CARDIOVASCULAR: S1 and S2. No murmurs, rubs, or gallops. ABDOMEN: Soft and nontender. EXTREMITIES: No clubbing, no cyanosis, there is 1+ edema in the legs. INTEGUMENT: No rash. No purpura. LABS: Sodium 134, potassium 4.7, BUN 23, creatinine 1.1. IMPRESSION AND PLAN 1. Status asthmaticus. 2. Concomitant anxiety. 3. Acute respiratory failure, extubated. 4. Chest pain, not otherwise specified. 5. Hyperglycemia. 6. Throat pain. At this time, we will just add some supportive Chloraseptic. Patient will have the Solu-Medrol stopped and will go to oral prednisone tablets. Patient will get PT evaluation, which is expectant for later today. Continue oxygen in the meantime and wean as tolerated. We will follow up closely. Job#: [id number] RASHAWN
[2018-07-06 15:55] LABS: ANION GAP 16.3 mmol/L (8-16); BLOOD UREA NITROGEN 34 mg/dL (7-26); BUN/CREATININE RATIO 24 (6-25); CALCIUM 9.6 mg/dL (8.4-10.2); CARBON DIOXIDE 25 mmol/L (22-29); CHLORIDE 96 mmol/L (98-107); CREATININE, SERUM 1.43 mg/dL (0.72-1.25); EST GLOMERULAR FILTRATION RATE > 60 ML/MIN (60-); GLUCOSE 362 mg/dL (74-118); POTASSIUM 4.3 mmol/L (3.5-5.1); SODIUM 133 mmol/L (136-145)
[2018-07-06] MEDS: ENOXAPARIN SOD INJ 40 MG/0.4 ML SYR SC SCH (17:21)
--- NOTE | 2018-07-06 19:48 | Diagnostic Imaging Report ---
EXAM: CHEST SINGLE (PORTABLE), AP 1 view INDICATION: Chest pain COMPARISON: AP view of the chest July 05, 2018 FINDINGS: LINES/TUBES: Interval removal of endotracheal tube and nasal/orogastric tube. LUNGS: No consolidations or edema. Bilateral subsegmental atelectasis. PLEURA: No effusions or pneumothorax. HEART AND MEDIASTINUM: The heart is within normal size limits. Central vascular congestion. BONES AND SOFT TISSUES: No acute findings. IMPRESSION: Central vascular congestion and bilateral subsegmental linear atelectasis. Signed by: Dr. Janki Devi M.D. on 07/06/2018 7:45 PM
[2018-07-06] MEDS: ALBUTEROL/IPRATROPIUM 3 ML NEB NEB SCH ×2 (19:55→23:30)
[2018-07-06] MEDS: FUROSEMIDE INJ 10 MG/ML 4 ML VIAL IV SCH (20:56)
[2018-07-06] MEDS ORDERED: INSULIN DETEMIR 100 UNIT/ML PEN SQ SCH (21:00)
[2018-07-07] VITALS (10 sets, daily range): BP systolic 115–157; BP diastolic 43–116
[2018-07-07] MEDS: ALBUTEROL/IPRATROPIUM 3 ML NEB NEB SCH ×6 (02:35→23:00)
[2018-07-07 05:52] LABS: BASOPHILS % 0.1 % (0.0-1.0); HEMATOCRIT 44.6 % (38.2-49.6); LYMPHOCYTES # (AUTO) 2.5 (1.0-3.2); LYMPHOCYTES % 23.5 % (18.0-39.1); MEAN CORPUSCULAR HEMOGLOBIN 28.7 pg (28-32); MEAN CORPUSCULAR HGB CONC 31.4 g/dL (31-35); MEAN CORPUSCULAR VOLUME 91.4 fL (81-99); MONOCYTES % 9.4 % (4.4-11.3); NEUTROPHILS % 66.7 % (38.7-80.0); PLATELET COUNT 277 x10e3/uL (140-360); RED BLOOD COUNT 4.88 x10e6/uL (4.3-5.7)
[2018-07-07 06:32] LABS: ALANINE AMINOTRANSFERASE 30 IU/L (0-55); ALBUMIN 3.4 g/dL (3.5-5.0); ALBUMIN/GLOBULIN RATIO 0.9 (0.8-2.0); ALKALINE PHOSPHATASE 65 IU/L (40-150); ANION GAP 13.9 mmol/L (8-16); BLOOD UREA NITROGEN 31 mg/dL (7-26); BUN/CREATININE RATIO 26 (6-25); CALCIUM 9.6 mg/dL (8.4-10.2); CARBON DIOXIDE 31 mmol/L (22-29); CHLORIDE 98 mmol/L (98-107); EST GLOMERULAR FILTRATION RATE > 60 ML/MIN (60-); GLUCOSE 225 mg/dL (74-118); POTASSIUM 3.9 mmol/L (3.5-5.1); SODIUM 139 mmol/L (136-145)
[2018-07-07] MEDS: HYDROCODONE/APAP 5MG-325MG TAB PO PRN ×3 (07:55→20:20)
[2018-07-07] MEDS: INSULIN LISPRO 100 UNIT/1 ML 3ML VIAL SQ SCH ×7 (07:57→20:48)
[2018-07-07] MEDS: FUROSEMIDE INJ 10 MG/ML 4 ML VIAL IV SCH ×2 (09:00→20:42)
[2018-07-07] MEDS: PREDNISONE 20 MG TAB PO SCH (09:00)
[2018-07-07] MEDS: LORAZEPAM 1 MG TAB PO SCH ×3 (09:00→20:42)
[2018-07-07] MEDS: AMLODIPINE BESYLATE 5 MG TAB PO SCH ×2 (09:00→17:35)
[2018-07-07] MEDS: FAMOTIDINE 20 MG/2 ML VIAL IV SCH (09:00)
[2018-07-07] MEDS: CARVEDILOL 12.5 MG TAB PO SCH ×2 (09:20→20:42)
[2018-07-07] MEDS ORDERED: PREDNISONE10 MG PO (12:12)
[2018-07-07] MEDS ORDERED: LORATADINE10 MG PO (12:14)
--- NOTE | 2018-07-07 13:17 | Progress Note ---
DATE: July 07, 2018 PULMONARY MEDICINE PROGRESS NOTE SUBJECTIVE: Mr. Mcqueen was seen and examined at bedside. Mr. Mcqueen continues to have slow progress with stable mild edema, but his shortness of breath remains stable. So far 93 to 95% oxygen saturation on room air, FiO2. Patient is able to walk around. He is eating. REVIEW OF SYSTEMS: No bleeding, no rash. OBJECTIVE VITALS: Afebrile. Vital signs noted per the chart record. GENERAL: No acute distress, alert and calm. HEENT: Normocephalic, atraumatic. NECK: Supple. Throat midline. LUNGS: Bilateral air entry, Limited air entry, but mostly clear. CARDIOVASCULAR: S1 and S2. No murmurs, rubs, or gallops. ABDOMEN: Soft and nontender. EXTREMITIES: No clubbing, no cyanosis. There is 1+ edema to the legs. INTEGUMENT: No rash. LABS: Potassium 3.9, BUN 31, and creatinine 1.3. White count 10 and platelet 40,000. IMPRESSION AND PLAN 1. Acute respiratory failure, resolved. 2. Asthma with exacerbation. 3. Fluid overload, possible early cor pulmonale. 4. Likely obstructive sleep apnea, did not require outpatient treatment. 5. Obesity, possible hypoventilation. At this time, we will continue doing the same treatment. Patient will continue diuretics. Continue mobilizing. Check his oxygen on room air. he qualifies for home oxygen. Continue to wait IgE level given his recurrences. Of note, C3 and C4 came back normal. We will along closely. Job#: [id number] KEN
[2018-07-07] MEDS: ENOXAPARIN SOD INJ 40 MG/0.4 ML SYR SC SCH (17:35)
[2018-07-07] MEDS: INSULIN DETEMIR 100 UNIT/ML PEN SQ SCH (20:48)
[2018-07-08] VITALS (7 sets, daily range): BP systolic 103–137; BP diastolic 56–85
[2018-07-08] MEDS: ALBUTEROL/IPRATROPIUM 3 ML NEB NEB SCH ×5 (00:30→21:00)
[2018-07-08] MEDS: HYDROCODONE/APAP 5MG-325MG TAB PO PRN ×3 (02:33→18:24)
[2018-07-08 06:20] LABS: BASOPHILS % 0.1 % (0.0-1.0); EOSINOPHILS # (AUTO) 0.1 (0.0-0.4); EOSINOPHILS % 0.7 % (0.0-6.0); HEMOGLOBIN 14.1 g/dL (14.0-18.0); LYMPHOCYTES # (AUTO) 3.4 (1.0-3.2); LYMPHOCYTES % 33.3 % (18.0-39.1); MEAN CORPUSCULAR HEMOGLOBIN 28.6 pg (28-32); MEAN CORPUSCULAR HGB CONC 31.3 g/dL (31-35); MEAN CORPUSCULAR VOLUME 91.3 fL (81-99); MONOCYTES % 9.2 % (4.4-11.3); NEUTROPHILS # (AUTO) 5.8 (2.1-6.9); NEUTROPHILS % 56.3 % (38.7-80.0); PLATELET COUNT 260 x10e3/uL (140-360); RED BLOOD COUNT 4.93 x10e6/uL (4.3-5.7); RED CELL DISTRIBUTION WIDTH 13.7 % (11.7-14.4)
--- NOTE | 2018-07-08 06:34 | Diagnostic Imaging Report ---
EXAM: CHEST SINGLE (PORTABLE), AP 1 view INDICATION: CHF COMPARISON: AP view of the chest July 06, 2018 FINDINGS: LINES/TUBES: None LUNGS: No consolidations or edema. PLEURA: No effusions or pneumothorax. HEART AND MEDIASTINUM: Normal size and contour. BONES AND SOFT TISSUES: Stable cardiomegaly and central vascular congestion. IMPRESSION: Stable cardiomegaly and central vascular congestion. Signed by: Dr. Janki Devi M.D. on 07/08/2018 6:30 AM
[2018-07-08 06:48] LABS: ANION GAP 12.5 mmol/L (8-16); BLOOD UREA NITROGEN 21 mg/dL (7-26); BUN/CREATININE RATIO 21 (6-25); CARBON DIOXIDE 33 mmol/L (22-29); CHLORIDE 97 mmol/L (98-107); CREATININE, SERUM 0.99 mg/dL (0.72-1.25); EST GLOMERULAR FILTRATION RATE > 60 ML/MIN (60-); GLUCOSE 172 mg/dL (74-118); POTASSIUM 3.5 mmol/L (3.5-5.1); SODIUM 139 mmol/L (136-145)
[2018-07-08] MEDS: INSULIN LISPRO 100 UNIT/1 ML 3ML VIAL SQ SCH ×7 (07:30→21:15)
[2018-07-08] MEDS: FAMOTIDINE 20 MG/2 ML VIAL IV SCH (08:36)
[2018-07-08] MEDS: LORAZEPAM 1 MG TAB PO SCH ×3 (08:36→21:15)
[2018-07-08] MEDS: PREDNISONE 20 MG TAB PO SCH (08:36)
[2018-07-08] MEDS: CARVEDILOL 12.5 MG TAB PO SCH ×2 (08:36→21:16)
[2018-07-08] MEDS: AMLODIPINE BESYLATE 5 MG TAB PO SCH ×2 (08:46→17:35)
[2018-07-08] MEDS: FUROSEMIDE 40 MG TAB PO SCH (08:46)
[2018-07-08] MEDS ORDERED: POTASSIUM CHLORIDE 20 MEQ TAB CR PO NR (09:00)
--- NOTE | 2018-07-08 13:19 | Progress Note ---
DATE: July 08, 2018 PULMONARY MEDICINE PROGRESS NOTE SUBJECTIVE: Mr. Mcqueen was seen and examined at bedside. The patient continues to have slow progress. He still has a little shortness of breath on minimal exertion and 93% oxygen saturation on room air FiO2 at rest. Eating impaired. REVIEW OF SYSTEMS: No headache. No rash. OBJECTIVE VITALS: Afebrile. Vital signs noted per the electronic record. GENERAL: No acute distress, alert and calm. HEENT: Normocephalic, atraumatic. NECK: Supple. Throat midline. LUNGS: Bilateral air entry decreased throughout, rare rhonchi, mostly clear. CARDIOVASCULAR: S1 and S2. No murmurs, rubs, or gallops. ABDOMEN: Soft and nontender. EXTREMITIES: No clubbing, no cyanosis. There is 1+ edema. INTEGUMENT: No rash. No purpura. LABS: potassium , 0.99 creatinine, 10 white count, 45 hematocrit. IMPRESSION AND PLAN 1. Acute respiratory failure, extubated. 2. Pneumonia. 3. Possible fluid overload. 4. Chronic respiratory failure. 5. Obstructive sleep apnea. 6. Asthma with exacerbation. Continue current treatment. Steroids at 40 mg per day. Will continue weaning this. I wrote a prescription for outpatient prednisone for when he gets at that point. Continue DVT prophylaxis. Continue mobilizing him. Home oxygen evaluation. Job#: [id number]
[2018-07-08] MEDS: ENOXAPARIN SOD INJ 40 MG/0.4 ML SYR SC SCH (17:35)
[2018-07-08] MEDS: INSULIN DETEMIR 100 UNIT/ML PEN SQ SCH (21:15)
[2018-07-09] VITALS: BP 120/65
[2018-07-09] MEDS: HYDROCODONE/APAP 5MG-325MG TAB PO PRN ×2 (00:29→09:19)
[2018-07-09] MEDS: ALBUTEROL/IPRATROPIUM 3 ML NEB NEB SCH ×4 (00:30→11:00)
[2018-07-09 04:00] VITALS: BP 144/81
[2018-07-09] MEDS: INSULIN LISPRO 100 UNIT/1 ML 3ML VIAL SQ SCH ×3 (07:30→12:30)
[2018-07-09 08:00] VITALS: BP 125/76
[2018-07-09] MEDS: AMLODIPINE BESYLATE 5 MG TAB PO SCH (09:19)
[2018-07-09] MEDS: FUROSEMIDE 40 MG TAB PO SCH (09:19)
[2018-07-09] MEDS: LORAZEPAM 1 MG TAB PO SCH (09:19)
[2018-07-09] MEDS: CARVEDILOL 12.5 MG TAB PO SCH (09:19)
[2018-07-09] MEDS: PREDNISONE 20 MG TAB PO SCH (09:19)
[2018-07-09] MEDS: FAMOTIDINE 20 MG/2 ML VIAL IV SCH (09:19)
[2018-07-09] MEDS ORDERED: ATIVAN0.5 MG PO (11:53)
[2018-07-09] MEDS ORDERED: NOVOLOG MI100 UNIT/1 SC (11:54)
[2018-07-09] MEDS ORDERED: LEVEMIR100 UNIT/1 SC (11:55)
[2018-07-09] MEDS ORDERED: LEXAPRO10 MG PO (11:56)
--- NOTE | 2018-07-09 13:00 | Progress Note ---
DATE: July 09, 2018 PULMONARY MEDICINE PROGRESS NOTE SUBJECTIVE: Mr. Mcqueen was seen and examined at bedside. He continues to have slow progress. He did not have any evelyn desaturations when he walked yesterday. He did not qualify for home oxygen. He continues with very low level of edema. He did have 2 bowel movements in the last day. The patient is eating well. REVIEW OF SYSTEMS: No headache. No rash. OBJECTIVE VITALS: Afebrile. Vital signs noted per the electronic record. GENERAL: No acute distress, alert and calm. HEENT: Normocephalic, atraumatic. NECK: Supple. Throat midline. LUNGS: Bilateral air entry, decreased breath sounds mildly, mostly clear. CARDIOVASCULAR: S1 and S2. No murmurs, rubs, or gallops. ABDOMEN: Soft and nontender. EXTREMITIES: No clubbing, no cyanosis, no edema. INTEGUMENT: No rash. No purpura. IMPRESSION AND PLAN 1. Acute respiratory failure, intubated and now extubated. 2. Asthma with exacerbation. 3. History of anxiety and use of medicines for anxiety and pain. 4. Possible fluid overload, seems less likely with B-type natriuretic peptide level being normal. At this time, continue current treatment. Steroids to be continued. We will work him into clinic for rapid workup in the next couple to 3 weeks. Patient has a prescription for prednisone written in the chart. He had home oxygen evaluation, and he did not qualify for oxygen. Possible discharge soon if further arrangements can be made. Job#: [id number]
== END 2018-07-09 13:15 | disposition home or self-care (01) | DRG 208 ==
LOC: ER 05:01 → ERHOLD 07:01 → ICU 11:28 → IMCU 07-06 12:08 → MED/SURG 07-07 16:01
PROC: 0BH17EZ Insertion of Endotracheal Airway into Trachea, Via Natural or Artificial Opening (ICD-10-PCS; principal; 2018-07-04)
PROC: 5A1935Z Respiratory Ventilation, Less than 24 Consecutive Hours (ICD-10-PCS; 2018-07-04)
DX: J96.22 Acute and chronic respiratory failure with hypercapnia (principal); J18.9 Pneumonia, unspecified organism; I50.23 Acute on chronic systolic (congestive) heart failure; J44.1 Chronic obstructive pulmonary disease with (acute) exacerbation; E66.2 Morbid (severe) obesity with alveolar hypoventilation; Z68.41 Body mass index [BMI] 40.0-44.9, adult; J45.902 Unspecified asthma with status asthmaticus; J44.0 Chronic obstructive pulmonary disease with (acute) lower respiratory infection; E11.65 Type 2 diabetes mellitus with hyperglycemia; E11.40 Type 2 diabetes mellitus with diabetic neuropathy, unspecified; Z79.4 Long term (current) use of insulin; F41.9 Anxiety disorder, unspecified; I11.0 Hypertensive heart disease with heart failure; R07.0 Pain in throat; G89.29 Other chronic pain; I27.81 Cor pulmonale (chronic)
CPT/HCPCS: 36415; 36600; 71045; 74018; 80048; 80053; 80307; 81001; 82550; 82553; 82785; 82805; 82948; 83036; 83880; 84439; 84443; 84484; 85025; 86160; 86162; 86431; 93005; 94002; 94003; 94640; 94644; 94660; 96366; 96372; 97139; 99285; J0330; J1650; J1940; J2250; J2920; J2930; J7050; J7512

== ENCOUNTER 2018-09-01 18:35 | Observation (INO) | payer MEDICARE ==
[~2018-09-01] VITALS: Ht 180.3 cm; Wt 142.1 kg
[~2018-09-01 18:35] MED LIST changes: +ATIVAN0.5 MG PO; +DUONEB; +HYDRALAZINE HCL25 MG PO; +LEVEMIR100 UNIT/1 SC; +LEXAPRO10 MG PO; +LORATADINE10 MG PO; +NIFEDIPINE ER30 M1 PO; +NOVOLOG MI100 UNIT/1 SC
[2018-09-01 19:46] LABS: INR 0.77; PROTHROMBIN TIME 11.5 seconds (11.9-14.5)
[2018-09-01 19:47] LABS: PARTIAL THROMBOPLASTIN TIME 26.5 seconds (23.8-35.5)
[2018-09-01 19:48] LABS: BASOPHILS % 0.5 % (0.0-1.0); EOSINOPHILS # (AUTO) 0.1 (0.0-0.4); EOSINOPHILS % 1.1 % (0.0-6.0); HEMATOCRIT 43.3 % (38.2-49.6); LYMPHOCYTES # (AUTO) 2.7 (1.0-3.2); LYMPHOCYTES % 41.4 % (18.0-39.1); MEAN CORPUSCULAR HEMOGLOBIN 30.4 pg (28-32); MEAN CORPUSCULAR HGB CONC 34.6 g/dL (31-35); MEAN CORPUSCULAR VOLUME 87.8 fL (81-99); MONOCYTES # (AUTO) 0.5 (0.2-0.8); MONOCYTES % 7.2 % (4.4-11.3); NEUTROPHILS # (AUTO) 3.3 (2.1-6.9); NEUTROPHILS % 49.5 % (38.7-80.0); PLATELET COUNT 206 x10e3/uL (140-360); RED BLOOD COUNT 4.93 x10e6/uL (4.3-5.7); RED CELL DISTRIBUTION WIDTH 14.4 % (11.7-14.4)
--- NOTE | 2018-09-01 19:48 | Diagnostic Imaging Report ---
EXAMINATION: CHEST 2 VIEWS INDICATION: chest pain x24 hrs COMPARISON: Chest x-ray 08/14/2018, chest CT 08/13/2018 FINDINGS: PA and lateral views TUBES and LINES: None. LUNGS: Lungs are well inflated. Atelectasis or scarring in the left midlung. There is no evidence of pneumonia or pulmonary edema. PLEURA: No pleural effusion or pneumothorax. HEART AND MEDIASTINUM: The cardiomediastinal silhouette is unremarkable. BONES AND SOFT TISSUES: There are degenerative changes in the thoracic spine. Soft tissues are unremarkable. UPPER ABDOMEN: No free air under the diaphragm. IMPRESSION: No acute thoracic abnormality. Signed by: DR. Deepak Tamez MD on 09/01/2018 7:45 PM
[2018-09-01 19:54] LABS: BILIRUBIN,URINE NEGATIVE (NEGATIVE); CLARITY,URINE CLEAR (CLEAR); COLOR,URINE YELLOW (YELLOW); KETONES,URINE NEGATIVE (NEGATIVE); LEUKOCYTE ESTERASE ,URINE NEGATIVE (NEGATIVE); NITRITE,URINE NEGATIVE (NEGATIVE); PROTEIN,URINE DIPSTICK 2+ (NEGATIVE); URINE UROBILINOGEN 1 mg/dL (0.2 - 1)
[2018-09-01 19:56] LABS: ALANINE AMINOTRANSFERASE 17 IU/L (0-55); ALBUMIN 3.8 g/dL (3.5-5.0); ALBUMIN/GLOBULIN RATIO 1.1 (0.8-2.0); ALKALINE PHOSPHATASE 72 IU/L (40-150); ANION GAP 19.5 mmol/L (8-16); BLOOD UREA NITROGEN 15 mg/dL (7-26); BUN/CREATININE RATIO 14 (6-25); CALCIUM 9.6 mg/dL (8.4-10.2); CARBON DIOXIDE 24 mmol/L (22-29); CHLORIDE 95 mmol/L (98-107); CREATINE KINASE 136 IU/L (30-200); CREATININE, SERUM 1.05 mg/dL (0.72-1.25); EST GLOMERULAR FILTRATION RATE > 60 ML/MIN (60-); GLUCOSE 360 mg/dL (74-118); POTASSIUM 4.5 mmol/L (3.5-5.1); SODIUM 134 mmol/L (136-145)
[2018-09-01 20:15] LABS: WBC,URINE (MAN) 0-5 /HPF (0-5)
[2018-09-01 20:16] LABS: BACTERIA,URINE RARE /HPF; EPITHELIAL CELLS,URINE FEW /LPF
[2018-09-01] MEDS ORDERED: KETOROLAC TROMETHAMINE 30 MG/ML VIAL IV STA (20:21)
[2018-09-01] MEDS ORDERED: MORPHINE SULFATE 2 MG/ML SYR 1ML IV PRN (21:00)
[2018-09-01] MEDS ORDERED: SODIUM CHLORIDE FLUSH 10 ML SYR INJ PRN (21:00)
[2018-09-01] MEDS ORDERED: ONDANSETRON HCL INJ 2MG/ML 2ML 2 MG/ML VIAL IV PRN (21:00)
[2018-09-01] MEDS ORDERED: DEXTROSE 50% SYRINGE 50 ML IV PRN (22:00)
[2018-09-01] MEDS ORDERED: MORPHINE SULFATE INJ 4 MG/ML INJ 1ML ONE (22:14)
[2018-09-01 22:30] VITALS: BP 164/90
[2018-09-01 22:45] VITALS: BP 164/90
[2018-09-01 23:19] VITALS: BP 149/88
[2018-09-01] MEDS: IPRATROPIUM BROMIDE 0.02% 2.5 ML NEB NEB SCH (23:35)
[2018-09-01] MEDS: ALBUTEROL SULF 0.083% NEB SOLN 3 ML NEB NEB SCH (23:35)
[2018-09-02] VITALS (7 sets, daily range): BP systolic 127–159; BP diastolic 65–101
--- NOTE | 2018-09-02 00:08 | NUR ---
Report received form WAVE SOLDER OFFBEARERJEROME Pappas. Patient admitted from ER at 2230 by stretcher.Patient alert/oriented x3. Denied pain and SOB noted. Patient continuing on 2liters oxygen via nasal canula,Spo2 maintained 98%. Head to toe assessment completed. No skin breakdown noted. Patient in the room. Patient instructed to call for help as needed. Bed in lower position,locked. call horne within reach. Will continue to monitor.
[2018-09-02] MEDS: NITROGLYCERIN 2% OINT 1 GM PKT TOP SCH ×4 (00:15→17:00)
[2018-09-02] MEDS: IPRATROPIUM BROMIDE 0.02% 2.5 ML NEB NEB SCH ×5 (01:00→23:45)
[2018-09-02] MEDS: MORPHINE SULFATE INJ 4 MG/ML INJ 1ML IV PRN ×5 (02:32→20:31)
[2018-09-02] MEDS: ALBUTEROL SULF 0.083% NEB SOLN 3 ML NEB NEB SCH ×6 (04:00→23:45)
[2018-09-02 05:08] LABS: BASOPHILS % 0.3 % (0.0-1.0); EOSINOPHILS # (AUTO) 0.1 (0.0-0.4); EOSINOPHILS % 0.9 % (0.0-6.0); HEMATOCRIT 37.8 % (38.2-49.6); HEMOGLOBIN 13.4 g/dL (14.0-18.0); LYMPHOCYTES # (AUTO) 2.7 (1.0-3.2); LYMPHOCYTES % 42.4 % (18.0-39.1); MEAN CORPUSCULAR HEMOGLOBIN 31.1 pg (28-32); MEAN CORPUSCULAR HGB CONC 35.4 g/dL (31-35); MEAN CORPUSCULAR VOLUME 87.7 fL (81-99); MONOCYTES # (AUTO) 0.6 (0.2-0.8); MONOCYTES % 8.8 % (4.4-11.3); NEUTROPHILS % 47.4 % (38.7-80.0); PLATELET COUNT 141 x10e3/uL (140-360); RED BLOOD COUNT 4.31 x10e6/uL (4.3-5.7); RED CELL DISTRIBUTION WIDTH 14.4 % (11.7-14.4)
[2018-09-02 05:37] LABS: CREATINE KINASE MB 1.8 ng/mL (0-5.0)
[2018-09-02 05:51] LABS: ANION GAP 14.6 mmol/L (8-16); BLOOD UREA NITROGEN 16 mg/dL (7-26); BUN/CREATININE RATIO 14 (6-25); CARBON DIOXIDE 26 mmol/L (22-29); CHLORIDE 97 mmol/L (98-107); CREATININE, SERUM 1.12 mg/dL (0.72-1.25); EST GLOMERULAR FILTRATION RATE > 60 ML/MIN (60-); GLUCOSE 362 mg/dL (74-118); POTASSIUM 4.6 mmol/L (3.5-5.1); SODIUM 133 mmol/L (136-145)
--- NOTE | 2018-09-02 07:09 | NUR ---
Report given to oncoming JEROME Villafana,walking round done.
[2018-09-02] MEDS ORDERED: INSULIN REGULAR, HUMAN 100 UNIT/1 ML 3ML VIAL SQ SCH (07:30)
[2018-09-02] MEDS: INSULIN REGULAR, HUMAN 100 UNIT/1 ML 3ML VIAL SQ SCH ×4 (08:51→20:31)
--- NOTE | 2018-09-02 09:00 | NUR ---
SOCIAL WORK INITIAL ASSESSMENT Dressmaker Or Tailor to bedside to discuss plan of care with patient/family. CM/SW role and care transitions discussed. Anticipated discharge plan discussed along with duration of care. CM/SW discussed patients right to make decisions in care. CM/SW work hours given. Patient lives: IN APARTMENT WITH GIRLFRIEND Admit/Transfer: VIA ED FROM HOME POA/Emergency contact: YOLANDE [phone] GIRLFRIEND Current/Previous Home Health: NONE PCP/Follow-up Care: ARANA Current/Previous DME: [facility] Other Services: NONE Employment Status: DISABLED Areas of Concerns: NONE Referral Needs: NONE Education Needs: NONE IMM/CHILD given and signed (if applicable): NA Goal for discharge:RETURN HOME INDEPENDENTLY CM/SW left business card at the bedside with contact information. Name and number was also written on the patients whiteboard. Patient verbalized understanding of discussion. CM will follow-up with ongoing discharge and transition of care needs.
--- NOTE | 2018-09-02 11:11 | NUR ---
PT NOTED WITH AN EPISODE OF VTACH, MADE AWARE RECEIVED ORDERS FOR CARDIAC CONSULT. CARDIOLOGY MADE AWARE OF VTACH EPISODE
[2018-09-02] MEDS: FUROSEMIDE 40 MG TAB PO SCH (12:30)
[2018-09-02] MEDS: LOSARTAN POTASSIUM 25 MG TAB PO SCH (12:45)
[2018-09-02 13:59] LABS: CREATINE KINASE MB 1.6 ng/mL (0-5.0)
[2018-09-02] MEDS ORDERED: LORAZEPAM 0.5 MG TAB PO PRN (14:15)
--- NOTE | 2018-09-02 14:28 | Consultation ---
DATE OF CONSULTATION: September 02, 2018 CARDIOLOGY CONSULTATION REASON FOR CONSULTATION: Chest pain. CHIEF COMPLAINT: Chest pain. HISTORY OF PRESENT ILLNESS: This is a 52-year-old male with history of nonischemic cardiomyopathy status post left heart catheterization in November 2017 per patient in which he was told the coronaries were clean. History also hypertension, diabetes, and also COPD. Patient presents to [facility] ER apparently with complaints of chest pain, tightness for the past two to three nights. Therefore, Cardiology was consulted. Troponins noted, so far negative x2. EKG noted with inverted T waves in the V5, V6 leads. Patient was seen in room, states that he has been having chest pains for the past two to three nights, tightness sensation in retrosternal nonradiating, with some shortness of breath. Also reports occasional palpitations. However, no dizziness or syncopal episodes. Currently patient reports he is doing okay. PAST MEDICAL HISTORY 1. Nonischemic cardiomyopathy. 2. Hypertension. 3. Diabetes. 4. COPD. 5. Asthma. ALLERGIES: LISINOPRIL. HOME MEDICATIONS 1. Lasix 40 mg once a day. 2. Coreg 12.5 mg twice a day. 3. Norvasc 2.5 mg twice a day. 4. Hydralazine 25 mg t.i.d. SOCIAL HISTORY: He is . He is a nonsmoker. Does not drink. FAMILY HISTORY: Apparently father at the age of 53 of apparently gunshot wound. Mother apparently with a history of CVA. He has four brothers, one with diabetes. One sister. REVIEW OF SYSTEMS GENERAL: Denies any weight changes, any weakness, fevers, chills, night sweats. SKIN-KC: No rashes or sores. HEENT: No nausea, vomiting, vision changes, double vision, blurred vision, any vertigo, any earaches, any epistaxis, any sore throat, hoarseness, swollen neck. CARDIAC: Chest pain as above. Denies any orthopnea, PND. Positive for lower extremity edema. RESPIRATORY: Positive for shortness of breath. Denies any hemoptysis. GI: Good appetite. No nausea, vomiting, diarrhea, constipation, hematochezia, any melena. URINARY: Positive for frequency and urgency. VASCULAR: Positive for lower extremity edema. MUSCULOSKELETAL: Denies any muscle weakness. Positive for generalized joint pains. NEUROLOGIC: Denies any tremors, weakness, paralysis, fainting, blackouts. HEMATOLOGY: Denies any anemia, easy bruising. ENDOCRINE: Denies any heat or cold intolerance, any polyuria, polydipsia, polyphagia. VITAL SIGNS: Height 71 inches, weight 297 pounds, BMI 41. Temperature 98.6, pulse 86, respiratory rate 18, blood pressure 153/83, pulse ox 94 on room air. ELECTROCARDIOGRAM: Sinus rhythm with inverted T waves in V5 and V6. CHEST X-RAY: No acute thoracic abnormalities. LABS: Sodium 133, potassium 4.5, chloride 97, bicarb 26, BUN 16, creatinine 1.1. Troponin 0.5, next 0.5. PHYSICAL EXAMINATION GENERAL: Appears stated age, in no acute distress. SKIN: No rashes, bruises noted. HEENT: Normocephalic. Pupils equal and reactive. Extraocular motor intact. Trachea midline. Oral mucosa pink. No JVD noted. No thyromegaly. No carotid bruits. HEART: Regular rate and rhythm. No murmurs or clicks. PMI is about 5th intercostal space. LUNGS: Bilateral breath sounds clear to auscultation. No wheezing, no rales. ABDOMEN: Soft, nontender, nondistended. No organomegaly noted. MUSCULOSKELETAL: Good muscle strength throughout, +1 edema in lower extremities. VASCULAR: +2 bilateral radial pulses, +1 DP/PT pulses. NEUROLOGIC: Cranial nerves 2-12. ASSESSMENT 1. Chest pain. 2. History of nonischemic cardiomyopathy. 3. Short runs of ventricular tachycardia. 4. Hypertension. 5. Diabetes. PLAN 1. Patient presents to [facility] ER with apparent complaints of chest pain for the past two or three nights. Cardiac enzymes negative x2 thus far. Will continue to cycle enzymes. Chest pain with mixed features. However, patient reports that chest pain is better when he is walking. Patient reports having a left heart catheterization November 2017 apparently in hospital. Will try to obtain heart cath report. 2. Continue patient on tele. 3. Will restart patient's beta stan therapy with Lasix. 4. Will continue to monitor patient and adjust cardiac therapy as clinical course dictates. Thank you very much for this consult. Dictated by: Enrique Nicholson NP Job#: [id number] EV
[2018-09-02] MEDS: LORAZEPAM 1 MG TAB PO PRN ×2 (14:35→21:03)
--- NOTE | 2018-09-02 14:37 | Consultation ---
DATE OF CONSULTATION: September 02, 2018 PULMONARY MEDICINE CONSULT REASON FOR REFERRAL: Chest tightness. HISTORY: Mr. Mcqueen is a pleasant 52-year-old gentleman with chest tightness. The patient was in his usual state of health. He has been home for about 2-1/2 weeks from his previous respiratory exacerbation. He started to have chest tightness. It was atypical in quality. There was a pattern of persistence. He decided to come to the emergency room for evaluation. He denies any significant shortness of breath at this time. He mentioned cardiac evaluations that are not producing too many unexpected findings. PAST MEDICAL HISTORY: Hypertension, diabetes, reported asthma, knee and ankle surgery, obesity. MEDICATIONS: List reviewed per electronic record. It is includes a Trilogy inhaler and Proair inhaler at home. The patient is on home oxygen and recently on the home CPAP. ALLERGIES: LISINOPRIL. SOCIAL HISTORY: Lifetime nonsmoker. No drinking. No drugs. Fiance is present at bedside. FAMILY HISTORY: Noncontributory. REVIEW OF SYSTEMS GENERAL: No malaise. HEENT: No mouth ulcers. ENDOCRINE: No thyroid abnormality. PULMONARY: No hemoptysis. CARDIAC: No heart attack known. : No blood in the urine. GI: No diarrhea. NEUROLOGIC: No seizures. DERMATOLOGIC: No rashes. MUSCULOSKELETAL: Mild arthritis. PHYSICAL EXAMINATION VITALS: Afebrile. Vital signs noted per electronic record. GENERAL: In no acute distress. Alert and calm. HEENT: Normocephalic and atraumatic. NECK: Supple. Throat midline. LUNGS: Bilateral air entry. No evelyn wheezing. Rare rhonchi. CARDIOVASCULAR: S1 and S2. No murmurs, rubs or gallops. ABDOMEN: Soft and nontender. EXTREMITIES: No clubbing. No cyanosis. There is only trac leg edema. INTEGUMENT: No rash. No purpura. LABS: Reviewed per electronic record. Of note, IgE level came back at 6. Rheumatoid factor is negative. Complements were negative in the past. CBC also showed no eosinophilia in the serum. Chest x-ray unremarkable. Clear lungs. IMPRESSION AND PLAN 1. Atypical chest tightness, possible acute coronary syndrome, although less likely but under evaluation. 2. Possible nonallergic asthma with exacerbation. 3. Obstructive sleep apnea. 4. Suggested secondary pulmonary hypertension, likely. 5. History of hypertension. 6. Diabetes. 7. Obstructive sleep apnea. Continue outpatient prednisone 20 mg. Continue outpatient maintenance inhaler, which is currently Trilogy, although insurance may eventually want this modified. Continue outpatient albuterol. We await outpatient PFTs, although we will order inpatient spirometry for now. Continue weight loss efforts. Continue outpatient oxygen and CPAP. Resume prednisone. Will follow up based on his treatment plan. As he remains refractory, considerations may be subdued to be forced a specific allergy panel rather than immunoglobin E-screening. It seems more likely that he is not allergic. Eventually, he may or may not need a heart catheterization, which may include left or right side or both. Thank you very much, Dr. Sapp, for this consult. Please call for questions. Job#: [id number] DAT
--- NOTE | 2018-09-02 14:45 | NUR ---
MEDICAL REQUEST FORM FAXED TO [facility] FOR HEART CATH RECORD.
[2018-09-02] MEDS: CARVEDILOL 12.5 MG TAB PO SCH (16:06)
[2018-09-02] MEDS: METFORMIN HCL 500 MG TAB PO SCH (16:06)
--- NOTE | 2018-09-02 19:00 | NUR ---
received report from day nurse. patient is resting comfortably in bed. bed is in lowest position and call horne is within reach.
[2018-09-02] MEDS ORDERED: ZOLPIDEM TARTRATE 5 MG TAB PO PRN (21:00)
[2018-09-02] MEDS ORDERED: ATORVASTATIN 20 MG TAB PO SCH (21:00)
[2018-09-02] MEDS ORDERED: AMITRIPTYLINE HCL 10 MG TAB PO SCH (21:00)
[2018-09-03] VITALS: BP 132/46
[2018-09-03] MEDS: MORPHINE SULFATE INJ 4 MG/ML INJ 1ML IV PRN ×3 (00:56→09:05)
[2018-09-03] MEDS: NITROGLYCERIN 2% OINT 1 GM PKT TOP SCH ×2 (00:57→05:13)
[2018-09-03] MEDS: ALBUTEROL SULF 0.083% NEB SOLN 3 ML NEB NEB SCH ×3 (03:25→11:20)
[2018-09-03 04:00] VITALS: BP 144/82
--- NOTE | 2018-09-03 05:00 | NUR ---
patient has had one episode of nose bleed. patient given a face towel and told to apply pressure on the nose and tilt head backwards. Respiratory notified. Respiratory will be in to see patient. will continue to monitor patient.
[2018-09-03 05:24] LABS: CHOL/HDL RATIO 4.6 (3.9-4.7)
[2018-09-03 05:50] LABS: THYROID STIMULATING HORMONE 2.209 uIU/mL (0.350-4.940)
[2018-09-03] MEDS: IPRATROPIUM BROMIDE 0.02% 2.5 ML NEB NEB SCH (07:00)
--- NOTE | 2018-09-03 07:01 | NUR ---
report given to day nurse. patient is resting comfortably in bed. bed is in lowest position and call horne is within reach.
[2018-09-03 07:34] VITALS: BP 132/65
[2018-09-03] MEDS: INSULIN REGULAR, HUMAN 100 UNIT/1 ML 3ML VIAL SQ SCH (08:00)
[2018-09-03] MEDS: METFORMIN HCL 500 MG TAB PO SCH (08:30)
[2018-09-03] MEDS: FUROSEMIDE 40 MG TAB PO SCH (08:45)
[2018-09-03] MEDS ORDERED: PREDNISONE 10 MG TAB PO SCH (09:00)
[2018-09-03] MEDS ORDERED: LORATADINE 10 MG TAB PO SCH (09:00)
[2018-09-03] MEDS: CARVEDILOL 12.5 MG TAB PO SCH (09:19)
[2018-09-03] MEDS: LOSARTAN POTASSIUM 25 MG TAB PO SCH (09:19)
--- NOTE | 2018-09-03 09:30 | NUR ---
SPOKE TO ESTELA IN MEDICAL RECORDS AT [facility], ASKED IF SHE KNEW AROUND WHEN THE RECORDS WOULD BE SENT, STATES THEY HAVE 48 HRS TO SEND RECORDS. MD MARCOS NOTIFIED
[2018-09-03] MEDS ORDERED: ASPIRIN 81 MG ENTERIC COATED PO SCH (10:00)
--- NOTE | 2018-09-03 10:52 | NUR ---
OKAY TO GO HOME FROM [facility] PAG[facility] DR. Harriet ARANA TO NOTIFY
--- NOTE | 2018-09-03 11:10 | NUR ---
PT DISCHARGED AT THIS TIME RX GIVEN EDUCATION AND F/U INSTRUCTIONS. IV DC'D SECURED WITH 4X4 GAUZE AND TAPE.
[2018-09-03 11:27] VITALS: BP 138/70
[2018-09-03] MEDS ORDERED: FUROSEMIDE 40 MG TAB PO SCH (17:00)
[2018-09-03] MEDS ORDERED: ENOXAPARIN SOD INJ 40 MG/0.4 ML SYR SC SCH (17:00)
== END 2018-09-03 12:13 | disposition home or self-care (01) ==
LOC: ER 18:35 → ERHOLD 21:18 → IMCU 22:30
DX: R07.89 Other chest pain (principal); I50.9 Heart failure, unspecified; J44.9 Chronic obstructive pulmonary disease, unspecified; E78.5 Hyperlipidemia, unspecified; E11.65 Type 2 diabetes mellitus with hyperglycemia; G47.33 Obstructive sleep apnea (adult) (pediatric); E66.01 Morbid (severe) obesity due to excess calories; Z68.41 Body mass index [BMI] 40.0-44.9, adult; I11.0 Hypertensive heart disease with heart failure; I47.2 Ventricular tachycardia; F41.9 Anxiety disorder, unspecified; Z79.84 Long term (current) use of oral hypoglycemic drugs
CPT/HCPCS: 36415 ×3; 71046; 80048; 80053; 80061; 81001; 82550 ×2; 82553 ×2; 82948 ×3; 84443; 84484 ×2; 85025 ×2; 85379; 85610; 85730; 86039; 93005 ×2; 94640 ×5; 99284; G0378 ×3; J1817; J1885; J2270 ×3; J7512

== ENCOUNTER 2018-09-10 15:29 | Observation (INO) | payer MEDICARE ==
[~2018-09-10] VITALS: Ht 180.3 cm; Wt 126.1 kg
--- OUTSIDE RECORDS SUMMARY | 2018-09-10 15:33 | XMS REPORT | Continuity of Care Document ---
Author Author [facility] Organization Interface Address Unknown Phone Unavailable Problems Problem Status Onset Date Classification Date Reported Comments Source CP, SOB Active 09/08/2018 [facility] ACUTE RESPIRATORY FAILURE WITH HYPOXEMIA Active 09/08/2018 [facility] CHF EXACERBATION, TIA Active 05/30/2018 [facility] CHEST PAIN/SOB/SLURRED SPEACH Active 05/29/[facility] SHORTNESS OF BREATH Active 05/03/2018 [facility] CHEST PAIN, CHOLELITHIASIS Active 05/03/2018 [facility] RESPIRATORY DISTRESS, CHF EXACERBATION Active 03/31/2018 [facility] SOB/CP Active 03/31/2018 [facility] CHEST PAIN, DYSPNEA Active 03/26/2018 [facility] CHEST PAIN/DIFFICULTY BREATHING Active 03/26/2018 [facility] HYPERCAPNIC RESPIRATORY FAILURE Active 01/31/2018 [facility] SHORTNESS OR BREATH, RESPIRATORY ACIDOSI Active 01/05/2018 [facility] SHORTNESS OR BREATH Active 01/05/2018 [facility] CHEST PAIN Active 11/30/2017 [facility] ACUTE EXACERBATION OF CHF,ACUTE RESPIRAT Active 11/30/2017 [facility] Hypertensive heart and chronic kidney disease with heart failure and stage 1 through stage 4 chronic kidney disease, or unspecified chronic kidney disease 11/15/2017 02/14/2018 [facility] ELEVATED TROPONIN, HTN, SOB, RESP FAILUR Active 11/05/2017 [facility] Hypertension Resolved Problem 02/14/2018 [facility] Shortness of breath 02/14/2018 [facility] Acute respiratory failure with hypercapnia 02/14/2018 [facility] Acute respiratory failure with hypoxia 02/14/2018 [facility] Acute kidney failure, unspecified 02/14/2018 [facility] Morbid obesity due to excess calories 02/14/2018 [facility] Cardiomyopathy, unspecified 02/14/2018 [facility] Acute systolic heart failure 02/14/2018 [facility] Body mass index 36.0-36.9, adult 02/14/2018 [facility] Obstructive sleep apnea (pediatric) 02/14/2018 [facility] Chronic kidney disease, unspecified 02/14/2018 [facility] Type II diabetes mellitus poorly controlled Active Problem 02/14/2018 [facility] ABNORMAL LEVELS OF OTHER SERUM ENZYMES Active [facility] ESSENTIAL (PRIMARY) HYPERTENSION Active [facility] SHORTNESS OF BREATH Active [facility] ACUTE RESPIRATORY FAILURE, UNSP W HYPOXI Active [facility] ACIDOSIS Active [facility] HEART FAILURE, UNSPECIFIED Active [facility] RESPIRATORY FAILURE, UNSPECIFIED WITH HY Active [facility] CHEST PAIN, UNSPECIFIED Active [facility] DYSPNEA, UNSPECIFIED Active [facility] CALCULUS OF GALLBLADDER W/O CHOLECYSTITI Active [facility] TRANSIENT CEREBRAL ISCHEMIC ATTACK, UNSP Active [facility] ACUTE RESPIRATORY FAILURE WITH HYPOXIA Active [facility] Medications Medication Details Route Status Patient Instructions Ordering Provider Order Date Source Albuterol 0.83 MG/ML Inhalant Solution 2.49 mg=3 mL, INHALATION, Q6H, PRN wheezing, coughing, or shortness of breath, # 100 ea, 5 Refill(s), Pharmacy: [id number] Active 02/03/2018 [facility] Furosemide 40 MG Oral Tablet [Lasix] 40 mg=1 tab, PO, BID, # 60 tab, 5 Refill(s), Pharmacy: [id number] Active 02/03/2018 [facility] Metformin hydrochloride 500 MG Oral Tablet 500 mg, 1 tab, Route: PO, Drug form: TAB, BID, Dosing Weight 131, kg, Start date: 02/03/18 9:00:00 CDT, Duration: 30 day, Stop date: 03/04/18 17:00:00 CDTNotes: (Same as: Glucophage) Take with meal Inactive 02/03/2018 [facility] Insulin Lispro 2 unit, 0.02 mL, Route: [...] days from Date No Longer Active 02/03/2018 [facility] Enoxaparin 40 mg, 0.4 mL, Route: SUB-Q, Drug form: INJ, [id number], Dosing Weight 131, kg, Start date: 02/02/18 11:00:00 CDT, Duration: 30 day, Stop date: 03/03/18 23:00:00 CDTNotes: (Same as: Lovenox) No Longer Active 02/02/2018 [facility] Prednisone 20 mg, 1 tab, Route: PO, Drug form: TAB, Daily, Dosing Weight 131, kg, Start date: 02/02/18 9:00:00 CDT, Stop date: 03/03/18 9:00:00 CDTNotes: Take with food. No Longer Active 02/02/2018 [facility] Lasix 40 mg, 4 mL, Route: IVP, Drug form: INJ, BID, Dosing Weight 131, kg, Start date: 02/01/18 11:53:00 CDT, Duration: 30 day, Stop date: 03/03/18 9:00:00 CDTNotes: (Same as: Lasix) MEDICATION WASTE Product Size: 40 mg Product Wasted: ___ mg No Longer Active 02/01/2018 [facility] Acetaminophen 325 MG / Hydrocodone Bitartrate 10 MG Oral Tablet [[place] 10/325] 1 tab, Route: PO, Drug Form: TAB, Dosing Weight 98.182, kg, Q6H, PRN Pain Score 4-6, Start date: 02/01/18 11:40:00 CDT, Duration: 30 day, Stop date: 03/03/18 11:39:00 CDTNotes: Do not exceed 4gm/day of acetaminophen. (Same as: [place] 325/10) No Longer Active 02/01/2018 [facility] Morphine 6 mg, 3 mL, Route: PO, Drug form: SOLN, Q4H, Dosing Weight 131, kg, PRN Pain Score 7-10, Start date: 02/01/18 11:09:00 CDT, Duration: 30 day, Stop date: 03/03/18 11:08:00 CDTNotes: (Same as:MORPhine Sulfate) No Longer Active 02/01/2018 [facility] valsartan 240 mg, 3 tab, Route: PO, Drug form: TAB, Daily, Dosing Weight 98.182, kg, Start date: 02/01/18 9:00:00 CDT, Duration: 30 day, Stop date: 03/02/18 9:00:00 CDTNotes: Same as Diovan No Longer Active 02/01/2018 [facility] potassium chloride 10 mEq oral tablet, extended release 10 mEq, 1 tab, Route: PO, Drug form: ERTAB, Daily, Dosing Weight 98.182, kg, Start date: 02/01/18 9:00:00 CDT, Duration: 30 day, Stop date: 03/02/18 9:00:00 CDTNotes: (Same as: K-Dur 10) "Do Not Crush" With food and full glass of water No Longer Active 02/01/2018 [facility] NIFEdipine 30 mg oral tablet, extended release [...] Do not crush No Longer Active 02/01/2018 [facility] Aspirin 81 MG Enteric Coated Tablet 81 mg, 1 tab, Route: PO, Drug form: ECTAB, Daily, Dosing Weight 98.182, kg, Start date: 02/01/18 9:00:00 CDT, Duration: 30 day, Stop date: 03/02/18 9:00:00 CDTNotes: Do not crush or chew. (Same As: Ecotrin) No Longer Active 02/01/2018 [facility] Lasix 40 mg, Route: IVP, Drug form: INJ, BID Diuretic, Dosing Weight 98.182, kg, Start date: 02/01/18 8:00:00 CDT, Duration: 30 day, Stop date: 03/02/18 16:00:00 CDT No Longer Active 02/01/2018 [facility] Albuterol 0.833 MG/ML / Ipratropium [place] 0.167 MG/ML Inhalant Solution 3 mL, Route: NEB, Drug Form: SOLN, Dosing Weight 98.182, kg, RQ6H, Start date: 02/01/18 2:00:00 CDT, Duration: 30 day, Stop date: 03/02/18 20:00:00 CDTNotes: (Same as: Duoneb) No Longer Active 02/01/2018 [facility] methylPREDNISolone SODium SUCCinate 40 mg, 1 mL, Route: IVP, Drug form: INJ, Q8H, Dosing Weight 98.182, kg, Start date: 02/01/18 0:00:00 CDT, Duration: 5 day, Stop date: 02/05/18 16:00:00 CDTNotes: (Same as:Solu-MEDROL, A-Methapred) Inactive 02/01/2018 [facility] Acetaminophen 325 MG / Hydrocodone Bitartrate 10 MG Oral Tablet [[place] 10/325] 1 tab, Route: PO, Drug Form: TAB, Dosing Weight 98.182, kg, Q6H, Start date: 02/01/18 0:00:00 CDT, Duration: 30 day, Stop date: 03/02/18 18:00:00 CDTNotes: Do not exceed 4gm/day of acetaminophen. (Same as: [place] 325/10) Inactive 02/01/2018 [facility] Furosemide 40 MG Oral Tablet [Lasix] 40 mg=1 tab, PO, BID, 0 Refill(s) No Longer Active 02/01/2018 [facility] atorvastatin 20 mg oral tablet 20 mg=1 tab, PO, Bedtime, # 30 tab, 0 Refill(s) Active 02/01/2018 [facility] carvedilol 25 mg oral tablet 25 mg=1 tab, PO, BID, # 180 tab, 1 Refill(s) Active 02/01/2018 [facility] zolpidem 10 mg oral tablet 10 mg=1 tab, PO, Bedtime, # 14 tab, 0 Refill(s) No Longer Active 02/01/2018 [facility] Morphine 2 mg, 2 mL, Route: IVP, Drug form: SOLN, Q4H, Dosing Weight 98.182, kg, PRN Pain Score 7-10, Priority: STAT, Start date: 01/31/18 21:01:00 CDT, Duration: 30 day, Stop date: 03/02/18 21:00:00 CDTNotes: Preservative free. (Same as: Morphine Sulfate-PF) No Longer Active 02/01/2018 [facility] Levofloxacin 750 mg, 150 mL, Route: IVPB, Drug form: SOLN, [id number], Dosing Weight 98.182, kg, for CrCl >49 mL/min, Start date: 01/31/18 21:00:00 CDT, Duration: 5 day, Stop date: 02/04/18 21:00:00 CDT, ABX Indication: Non-PNA Respiratory Tract InfectionNotes: (Same as:Levaquin) No Longer Active 02/01/2018 [facility] Ambien 5 mg, 1 tab, Route: PO, Drug form: TAB, Bedtime, Dosing Weight 98.182, kg, Start date: 01/31/18 21:00:00 CDT, Duration: 30 day, Stop date: 03/01/18 21:00:00 CDTNotes: (Same As: Ambien) No Longer Active 02/01/2018 [facility] carvedilol 25 mg, 2 tab, Route: PO, Drug form: TAB, Q12H, Dosing Weight 98.182, kg, Start date: 01/31/18 21:00:00 CDT, Duration: 30 day, Stop date: 03/02/18 9:00:00 CDTNotes: Give with food. (Same As: Coreg) No Longer Active 02/01/2018 [facility] atorvastatin 20 mg, 2 tab, Route: PO, Drug form: TAB, Bedtime, Dosing Weight 98.182, kg, Start date: 01/31/18 21:00:00 CDT, Duration: 30 day, Stop date: 03/01/18 21:00:00 CDTNotes: (Same As: Lipitor) No Longer Active 02/01/2018 [facility] Insulin Lispro 15 unit, 0.15 mL, Route: [...] days from Date No Longer Active 02/01/2018 [facility] Glucagon 1 mg, Route: IM, Drug form: PDR/INJ, PRN, Dosing Weight 98.182, kg, PRN Blood Glucose Results, Start date: 01/31/18 20:38:00 CDT, Duration: 30 day, Stop date: 03/02/18 20:37:00 CDT No Longer Active 02/01/2018 [place] Dextrose 50% Syringe 25 gm, 50 mL, Route: IVP, Drug Form: INJ, Dosing Weight 98.182, kg, PRN, PRN Blood Glucose Results, Start date: 01/31/18 20:38:00 CDT, Duration: 30 day, Stop date: 03/02/18 20:37:00 CDT No Longer Active 02/01/2018 [facility] Albuterol 0.83 MG/ML Inhalant Solution 2.5 mg, 3.01 mL, Route: NEB, Drug form: SOLN, RQ2H, Dosing Weight 98.182, kg, PRN Wheezing, Priority: Routine, Start date: 01/31/18 20:35:00 CDT, Duration: 30 day, Stop date: 03/02/18 20:34:00 CDTNotes: SEE RT DOCUMENTATION (Same as: Proventil) No Longer Active 02/01/2018 [facility] Sodium Chloride 0.9% (Bolus) IV 1,000 mL, 1000 ml/hr, Infuse Over: 1 hr, Route: IV, 1,000, Drug form: INJ, ONCE, Priority: STAT, Dosing Weight 98.182 kg, Start date: 01/31/18 18:05:00 CDT, Stop date: 01/31/18 18:05:00 CDT Inactive 01/31/2018 [facility] Naloxone 2 mg, 2 mL, Route: IVP, Drug form: INJ, ONCE, Dosing Weight 98.182, kg, Priority: STAT, Start date: 01/31/18 18:05:00 CDT, Stop date: 01/31/18 18:05:00 CDTNotes: (Same as: Narcan) MEDICATION WASTE Product Size: 2 mg Product Wasted: ___ mg Inactive 01/31/2018 [facility] Albuterol 0.833 MG/ML / Ipratropium [place] 0.167 MG/ML Inhalant Solution [DuoNeb] 9 mL, Route: NEB, Drug Form: SOLN, Dosing Weight 98.182, kg, PRN, PRN Respiratory Pathway, Start date: 01/31/18 18:04:00 CDT, Duration: 30 day, Stop date: 03/02/18 18:03:00 CDTNotes: (Same as: Duoneb) No Longer Active 01/31/2018 [facility] Solu-Medrol 125 mg, Route: IVP, ONCE, Dosing Weight 98.182, kg, Priority: STAT, Start date: 01/31/18 17:18:00 CDT, Stop date: 01/31/18 17:18:00 CDT Inactive 01/31/2018 [facility] Saline Flush 0.9% 10 mL, Route: IVP, Drug Form: INJ, Dosing Weight 98.182, kg, PRN, PRN Line Flush, Start date: 01/31/18 17:08:00 CDT, Duration: 30 day, Stop date: 03/02/18 17:07:00 CDTNotes: (Same as: BD Posiflush) No Longer Active 01/31/2018 [facility] Furosemide 40 MG Oral Tablet [Lasix] 40 mg=1 tab, PO, BID, # 60 tab, 0 Refill(s), Pharmacy: [facility] Active 01/09/2018 [facility] NIFEdipine 30 mg oral tablet, extended release 30 mg=1 tab, PO, Daily, # 30 tab, 0 Refill(s), Pharmacy: [id number] Active 01/09/2018 [facility] predniSONE 20 mg oral tablet 20 mg=1 tab, PO, Daily, X 5 day, # 5 tab, 0 Refill(s), Pharmacy: [id number] Active 01/09/2018 [facility] valsartan 80 mg oral tablet 240 mg=3 tab, PO, Daily, # 90 tab, 0 Refill(s), Pharmacy: [id number] Active 01/09/2018 [facility] carvedilol 25 mg oral tablet 25 mg=1 tab, PO, Q12H, # 60 tab, 0 Refill(s), Pharmacy: [id number] Active 01/09/2018 [facility] Furosemide 40 MG Oral Tablet [Lasix] 40 mg, 1 tab, Route: PO, Drug form: TAB, BID, Dosing Weight 134.4, kg, Start date: 01/09/18 10:00:00 CDT, Duration: 30 day, Stop date: 02/08/18 9:00:00 CDTNotes: (Same as: Lasix) May cause GI upset. Give with food or milk. Inactive 01/09/2018 [facility] Nifedical XL 30 mg, 1 tab, Route: PO, Drug form: ERTAB, Daily, Dosing Weight 134.4, kg, Priority: NOW, Start date: 01/08/18 18:06:00 CDT, Duration: 30 day, Stop date: 02/07/18 9:00:00 CDTNotes: (Same as: Adalat C C, Procardia XL) Give on empty stomach. Take 1 hour before or 2 hours after meal; "Avoid grapefruit and grapefruit juice". Do not crush No Longer Active 01/08/2018 [facility] Prednisone 20 mg, 1 tab, Route: PO, Drug form: TAB, Daily, Dosing Weight 134.4, kg, Start date: 01/08/18 9:00:00 CDT, Stop date: 02/06/18 9:00:00 CDTNotes: Take with food. No Longer Active 01/08/2018 [facility] valsartan 240 mg, 3 tab, Route: PO, Drug form: TAB, Daily, Dosing Weight 134.4, kg, Start date: 01/08/18 9:00:00 CDT, Duration: 30 day, Stop date: 02/06/18 9:00:00 CDTNotes: Same as Diovan No Longer Active 01/08/2018 [facility] carvedilol 25 mg, 2 tab, Route: PO, Drug form: TAB, Q12H, Dosing Weight 134.4, kg, Start date: 01/08/18 9:00:00 CDT, Duration: 30 day, Stop date: 02/06/18 21:00:00 CDTNotes: Give with food. (Same As: Coreg) No Longer Active 01/08/2018 [facility] carvedilol 12.5 mg, 1 tab, Route: PO, Drug form: TAB, Q12H, Dosing Weight 134.4, kg, Start date: 01/07/18 21:00:00 CDT, Duration: 30 day, Stop date: 02/06/18 9:00:00 CDTNotes: Give with food. (Same As: Coreg) Inactive 01/08/2018 [facility] atorvastatin 20 mg, 2 tab, Route: PO, Drug form: TAB, Bedtime, Dosing Weight 134.4, kg, Start date: 01/07/18 21:00:00 CDT, Duration: 30 day, Stop date: 02/05/18 21:00:00 CDTNotes: (Same As: Lipitor) No Longer Active 01/08/2018 [facility] Amitriptyline 25 mg, 1 tab, Route: PO, Drug form: TAB, Bedtime, Dosing Weight 134.4, kg, Start date: 01/07/18 21:00:00 CDT, Duration: 30 day, Stop date: 02/05/18 21:00:00 CDTNotes: (Same as: Elavil) No Longer Active 01/08/2018 [facility] valsartan 160 mg, 1 tab, Route: PO, Drug form: TAB, Daily, Dosing Weight 134.4, kg, Start date: 01/07/18 15:00:00 CDT, Duration: 30 day, Stop date: 02/06/18 9:00:00 CDTNotes: Same as Diovan Inactive 01/07/2018 [facility] Hydralazine 10 mg, 0.5 mL, Route: IVP, Drug form: INJ, Q6H, Dosing Weight 134.4, kg, PRN Hypertension, Start date: 01/07/18 13:56:00 CDT, Duration: 30 day, Stop date: 02/06/18 13:55:00 CDTNotes: (Same as: Chinyereo line) Push over 5 minutes No Longer Active 01/07/2018 [facility] Insulin Lispro 3 unit, 0.03 mL, Route: [...] days from Date No Longer Active 01/07/2018 [facility] Insulin Glargine 100 UNT/ML Injectable Solution [Lantus] 20 unit, 0.2 mL, Route: SUB-Q, Drug form: SOLN, Daily, Dosing Weight 134.4, kg, Start date: 01/07/18 9:55:00 CDT, Duration: 30 day, Stop date: 02/06/18 9:00:00 CDTNotes: (Same as: Lantus) Do not hold insulin without contacting prescriber WASTE: F/P - Black; E - Municipal Trash Bin "single patient use only" No Longer Active 01/07/2018 [facility] Glucagon 1 mg, Route: IM, Drug form: PDR/INJ, PRN, Dosing Weight 134.4, kg, PRN Blood Glucose Results, Start date: 01/06/18 16:46:00 CDT, Duration: 30 day, Stop date: 02/05/18 16:45:00 CDT No Longer Active 01/06/2018 [place] Dextrose 50% Syringe 25 gm, 50 mL, Route: IVP, Drug Form: INJ, Dosing Weight 134.4, kg, PRN, PRN Blood Glucose Results, Start date: 01/06/18 16:46:00 CDT, Duration: 30 day, Stop date: 02/05/18 16:45:00 CDT No Longer Active 01/06/2018 [facility] Insulin Lispro 2 unit, 0.02 mL, Route: [...] days from Date No Longer Active 01/06/2018 [facility] Acetaminophen 325 MG / Hydrocodone Bitartrate 5 MG Oral Tablet [[place] 5/325] 1 tab, Route: PO, Drug Form: TAB, Dosing Weight 134.4, kg, Q4H, PRN Pain Score 4-6, Start date: 01/06/18 11:43:00 CDT, Duration: 30 day, Stop date: 02/05/18 11:42:00 CDTNotes: (Same as: [place] 325/5) Do not exceed 4gm/day of acetaminophen. No Longer Active 01/06/2018 [facility] Tylenol 650 mg, 2 tab, Route: PO, Drug form: TAB, Q6H, Dosing Weight 134.4, kg, PRN Pain 1-3/Temp > 100.4 F, Start date: 01/06/18 11:43:00 CDT, Duration: 30 day, Stop date: 02/05/18 11:42:00 CDTNotes: Do not exceed 4 gm/day. (Same as: Tylenol) No Longer Active 01/06/2018 [facility] methylPREDNISolone SODium SUCCinate 40 mg, 1 mL, Route: IVP, Drug form: INJ, Q12H, Dosing Weight 134.4, kg, Start date: 01/06/18 9:00:00 CDT, Duration: 30 day, Stop date: 02/04/18 21:00:00 CDTNotes: (Same as:Solu-MEDROL, A-Methapred) No Longer Active 01/06/2018 [facility] Albuterol 0.833 MG/ML / Ipratropium [place] 0.167 MG/ML Inhalant Solution 3 mL, Route: NEB, Drug Form: SOLN, Dosing Weight 134.4, kg, RQ6H, Start date: 01/06/18 8:00:00 CDT, Duration: 30 day, Stop date: 02/05/18 2:00:00 CDTNotes: (Same as: Duoneb) No Longer Active 01/06/2018 [facility] Enoxaparin 40 mg, 0.4 mL, Route: SUB-Q, Drug form: INJ, [id number], Dosing Weight 134.4, kg, Consider for obese patients, Start date: 01/06/18 7:00:00 CDT, Duration: 30 day, Stop date: 02/04/18 19:00:00 CDTNotes: (Same as: Lovenox) No Longer Active 01/06/2018 [facility] Budesonide 0.25 MG/ML Inhalant Solution 0.5 mg, 2 mL, Route: NEB, Drug form: SUSP, RQ12H, Dosing Weight 134.4, kg, Start date: 01/06/18 6:52:00 CDT, Stop date: 02/04/18 20:00:00 CDT, Notes: (Same As: Pulmicort) No Longer Active 01/06/2018 [facility] Albuterol 0.833 MG/ML / Ipratropium [place] 0.167 MG/ML Inhalant Solution [DuoNeb] 3 ml, Route: NEB, Drug Form: SOLN, Dosing Weight 134.4, kg, PRN, PRN Respiratory Pathway, Start date: 01/06/18 6:52:00 CDT, Duration: 30 day, Stop date: 02/05/18 6:51:00 CDTNotes: (Same as: Duoneb) No Longer Active 01/06/2018 [facility] Lasix 40 mg, 4 mL, Route: IVP, Drug form: INJ, Q12H, Dosing Weight 134.4, kg, Start date: 01/06/18 6:52:00 CDT, Duration: 30 day, Stop date: 02/04/18 21:00:00 CDTNotes: (Same as: Lasix) MEDICATION WASTE Product Size: 40 mg Product Wasted: ___ mg No Longer Active 01/06/2018 [place] Albuterol 0.833 MG/ML / Ipratropium [place] 0.167 MG/ML Inhalant Solution 3 mL, Route: NEB, Drug Form: SOLN, Dosing Weight 134, kg, ONCE, STAT, Start date: 01/06/18 5:38:00 CDT, Stop date: 01/06/18 5:38:00 CDTNotes: (Same as: Duoneb) Inactive 01/06/2018 [facility] Albuterol 0.83 MG/ML Inhalant Solution 10 mg, 12.05 mL, Route: NEB, Drug form: SOLN, Continuous, Dosing Weight 134, kg, Priority: STAT, Start date: 01/06/18 5:38:00 CDT, Duration: 30 day, Stop date: 02/05/18 5:37:00 CDTNotes: SEE RT DOCUMENTATION (Same as: Saimatil) Inactive 01/06/2018 [facility] Aspirin 325 mg, 1 tab, Route: PO, Drug form: ECTAB, ONCE, Dosing Weight 134, kg, Priority: STAT, Start date: 01/06/18 5:09:00 CDT, Stop date: 01/06/18 5:09:00 CDTNotes: (Do Not Crush) Do not crush or chew. Inactive 01/06/2018 [facility] Zofran 4 mg, Route: IVP, Drug form: INJ, ONCE, Dosing Weight 142.591, kg, Priority: STAT, Start date: 01/06/18 3:36:00 CDT, Stop date: 01/06/18 3:36:00 CDT Inactive 01/06/2018 [facility] Morphine 4 mg, Route: IVP, ONCE, Dosing Weight 142.591, kg, Priority: STAT, Start date: 01/06/18 3:36:00 CDT, Stop date: 01/06/18 3:36:00 CDT Inactive 01/06/2018 [facility] Saline Flush 0.9% 10 mL, Route: IVP, Drug Form: INJ, Dosing Weight 142.591, kg, PRN, PRN Line Flush, Start date: 01/06/18 3:20:00 CDT, Duration: 30 day, Stop date: 02/05/18 3:19:00 CDTNotes: Same as: BD Posiflush Sterile No Longer Active 01/06/2018 [facility] potassium chloride 10 mEq oral capsule, extended release 10 mEq=1 cap, PO, Daily, # 30 cap, 0 Refill(s), Pharmacy: [id number] Active 12/04/2017 [facility] Furosemide 40 MG Oral Tablet [Lasix] 40 mg=1 tab, PO, BID, X 30 day, # 60 tab, 1 Refill(s), Pharmacy: [facility] [id number] Active 12/04/2017 [facility] valsartan 160 mg oral tablet 160 mg=1 tab, PO, Daily, X 30 day, # 30 tab, 0 Refill(s), Pharmacy: [facility] [id number] Active 12/04/2017 [facility] atorvastatin 20 mg oral tablet 20 mg=1 tab, PO, Bedtime, X 30 day, # 30 tab, 0 Refill(s), Pharmacy: [facility] [id number] Active 12/04/2017 [facility] Metformin hydrochloride 500 MG Oral Tablet 500 mg=1 tab, PO, BID-Meals, X 30 day, # 60 tab, 0 Refill(s), Pharmacy: [facility] [id number] Active 12/04/2017 [facility] Accu-Chek Guide Blood Glucose Test Strips 1 ea, MISC, Daily, Use for blood glucose monitoring., # 100 ea, Not insulin dependent, Does not use insulin pump, Last DM eval date 12/04/17, 0 Refill(s) Active 12/04/2017 [facility] Accu-Chek FastClix Lancets 1 ea, MISC, Daily, Use for blood glucose monitoring., # 30 ea, Not insulin dependent, Does not use insulin pump, Last DM eval date 12/04/17, 0 Refill(s) Active 12/04/2017 [facility] Nebulizer 1 ea, MISC, ONCALL, # 1 ea, 0 Refill(s) Active 12/04/2017 [facility] Albuterol 0.83 MG/ML Inhalant Solution 2.49 mg=3 mL, INHALATION, Q6H, PRN wheezing, coughing, or shortness of breath, # 100 ea, 0 Refill(s), Pharmacy: [facility] [id number] Active 12/04/2017 [facility] Accu-Chek Guide Blood Glucose Meter 1 ea, MISC, ONCE, Use for blood glucose monitoring, # 1 ea, Not insulin dependent, Does not use insulin pump, Last DM eval date 12/04/17, 0 Refill(s) Active 12/04/2017 [facility] potassium chloride 20 mEq oral tablet, extended release 20 mEq=1 tab, PO, Daily, X 30 day, # 30 tab, 0 Refill(s), Pharmacy: [facility] [id number] Active 12/04/2017 [facility] valsartan 160 mg, 1 tab, Route: PO, Drug form: TAB, Daily, Dosing Weight 133.8, kg, Start date: 12/03/17 9:00:00 CDT, Duration: 30 day, Stop date: 01/01/18 9:00:00 CDTNotes: Same as Diovan No Longer Active 12/03/2017 [facility] Sodium Chloride 0.111 MEQ/ML Nasal [place] [Sea Mist] 2 spray, Route: NASAL, BID, Drug form: SOLN, Start date: 12/02/17 18:30:00 CDT, Duration: 2 day, Stop date: 12/04/17 17:00:00 CDTNotes: (Same as: [place], Deep Sea Nasal [place]). No Longer Active 12/02/2017 [facility] valsartan 80 mg, 1 tab, Route: PO, Drug form: TAB, Daily, Dosing Weight 133.8, kg, Start date: 12/02/17 9:00:00 CDT, Duration: 30 day, Stop date: 12/31/17 9:00:00 CDTNotes: Same as Diovan No Longer Active 12/02/2017 [facility] Aspirin 81 MG Enteric Coated Tablet 81 mg, 1 tab, Route: PO, Drug form: ECTAB, Daily, Dosing Weight 133.8, kg, Start date: 12/02/17 9:00:00 CDT, Duration: 30 day, Stop date: 12/31/17 9:00:00 CDTNotes: Do not crush or chew. (Same As: Ecotrin) No Longer Active 12/02/2017 [facility] Ambien 10 mg, 2 tab, Route: PO, Drug form: TAB, Bedtime, Dosing Weight 133.8, kg, PRN Insomnia, Start date: 12/02/17 0:23:00 CDT, Duration: 30 day, Stop date: 01/01/18 0:22:00 CDTNotes: (Same As: Ambien) No Longer Active 12/02/2017 [facility] carvedilol 12.5 mg, 1 tab, Route: PO, Drug form: TAB, Q12H, Dosing Weight 133.8, kg, Start date: 12/01/17 21:00:00 CDT, Duration: 30 day, Stop date: 12/31/17 9:00:00 CDTNotes: Give with food. (Same As: Coreg) No Longer Active 12/02/2017 [facility] Amitriptyline 25 mg, 1 tab, Route: PO, Drug form: TAB, Bedtime, Dosing Weight 133.8, kg, Start date: 12/01/17 21:00:00 CDT, Duration: 30 day, Stop date: 12/30/17 21:00:00 CDTNotes: (Same as: Elavil) No Longer Active 12/02/2017 [facility] atorvastatin 20 mg, 2 tab, Route: PO, Drug form: TAB, Bedtime, Dosing Weight 127.273, kg, Start date: 12/01/17 21:00:00 CDT, Duration: 30 day, Stop date: 12/30/17 21:00:00 CDTNotes: (Same As: Lipitor) No Longer Active 12/02/2017 [facility] Metoprolol 5 mg, 5 mL, Route: IV, Drug form: INJ, Q6H, Dosing Weight 133.8, kg, PRN Tachycardia, Start date: 12/01/17 18:38:00 CDT, Duration: 30 day, Stop date: 12/31/17 18:37:00 CDTNotes: (Same as: Lopressor) Push over 2 minutes No Longer Active 12/01/2017 [facility] Nitroglycerin 0.4 MG Sublingual Tablet 0.4 mg, 1 tab, Route: SL, Drug form: TAB, Q5Min, Dosing Weight 133.8, kg, PRN Chest Pain, Start date: 12/01/17 18:38:00 CDT, Duration: 30 day, Stop date: 12/31/17 18:37:00 CDTNotes: (Same as:Nitroquick, Nitrostat) "Do Not Crush" Sublingual tablet No Longer Active 12/01/2017 [facility] Hydralazine 10 mg, 0.5 mL, Route: IVP, Drug form: INJ, Q4H, Dosing Weight 133.8, kg, PRN Hypertension, Start date: 12/01/17 18:38:00 CDT, Duration: 30 day, Stop date: 12/31/17 18:37:00 CDTNotes: (Same as: Aprmikyo line) Push over 5 minutes No Longer Active 12/01/2017 [facility] Miralax 17 gm, 1 pkt, Route: PO, Drug form: PWDR, Daily, Dosing Weight 133.8, kg, Start date: 12/01/17 16:00:00 CDT, Duration: 30 day, Stop date: 12/31/17 9:00:00 CDTNotes: Dissolve in 8 oz of water or juice. (Same as: Miralax) No Longer Active 12/01/2017 [facility] Aspirin 81 mg, 1 tab, Route: PO, Drug form: ECTAB, Daily, Dosing Weight 127.273, kg, Start date: 12/01/17 9:00:00 CDT, Duration: 30 day, Stop date: 12/30/17 9:00:00 CDTNotes: Do not crush or chew. (Same As: Ecotrin) No Longer Active 12/01/2017 [facility] Glucagon 1 mg, Route: IM, Drug form: PDR/INJ, PRN, Dosing Weight 133.8, kg, PRN Blood Glucose Results, Start date: 12/01/17 0:29:00 CDT, Duration: 30 day, Stop date: 12/31/17 0:28:00 CDT No Longer Active 12/01/2017 [facility] Dextrose 50% Syringe 25 gm, 50 mL, Route: IVP, Drug Form: INJ, Dosing Weight 133.8, kg, PRN, PRN Blood Glucose Results, Start date: 12/01/17 0:29:00 CDT, Duration: 30 day, Stop date: 12/31/17 0:28:00 CDT No Longer Active 12/01/2017 [facility] Insulin Lispro 5 unit, 0.05 mL, Route: [...] days from Date No Longer Active 12/01/2017 [facility] hydrocortisone sodium phosphate INJ 40 mg, 0.8 mL, Route: IVP, Drug form: PDR/INJ, Q6H, Dosing Weight 133.8, kg, Start date: 12/01/17 0:00:00 CDT, Duration: 30 day, Stop date: 12/30/17 18:00:00 CDTNotes: (Same as: [place]) Inactive 12/01/2017 [facility] Acetaminophen 325 MG / Hydrocodone Bitartrate 5 MG Oral Tablet [[place] 5/325] 1 tab, Route: PO, Drug Form: TAB, Dosing Weight 133.8, kg, Q4H, PRN Pain Score 1-3, Start date: 11/30/17 23:36:00 CDT, Duration: 30 day, Stop date: 12/30/17 23:35:00 CDTNotes: (Same as: [place] 325/5) Do not exceed 4gm/day of acetaminophen. No Longer Active 12/01/2017 [facility] Albuterol 0.833 MG/ML / Ipratropium [place] 0.167 MG/ML Inhalant Solution [DuoNeb] 3 ml, Route: NEB, Drug Form: SOLN, Dosing Weight 133.8, kg, Q6H, PRN Respiratory Protocol, Start date: 11/30/17 23:29:00 CDT, Duration: 30 day, Stop date: 12/30/17 23:28:00 CDTNotes: (Same as: Duoneb) No Longer Active 12/01/2017 [facility] tramadol hydrochloride 50 MG Oral Tablet 50 mg, 1 tab, Route: PO, Drug form: TAB, Q6H, Dosing Weight 127.273, kg, PRN Pain Score 1-3, Start date: 11/30/17 22:58:00 CDT, Duration: 30 day, Stop date: 12/30/17 22:57:00 CDTNotes: Not to exceed 400mg/day. (Same As: Ultram) No Longer Active 12/01/2017 [facility] Lasix 60 mg, 6 mL, Route: IV, Drug form: INJ, Q8Hnow, Dosing Weight 127.273, kg, Start date: 11/30/17 22:00:00 CDT, Duration: 30 day, Stop date: 12/30/17 14:00:00 CDTNotes: (Same as: Lasix) MEDICATION WASTE Product Size: 40 mg Product Wasted: ___ mg No Longer Active 12/01/2017 [facility] Enoxaparin 40 mg, 0.4 mL, Route: SUB-Q, Drug form: INJ, [id number], Dosing Weight 127.273, kg, Start date: 11/30/17 22:00:00 CDT, Duration: 30 day, Stop date: 12/29/17 22:00:00 CDTNotes: (Same as: Lovenox) No Longer Active 12/01/2017 [facility] Ondansetron 4 mg, 2 mL, Route: IVP, Drug form: INJ, Q6H, Dosing Weight 127.273, kg, PRN Nausea & Vomiting, Start date: 11/30/17 21:35:00 CDT, Duration: 30 day, Stop date: 12/30/17 21:34:00 CDTNotes: (Same as: Zofran) MEDICATION WASTE Product Size: 4 mg Product Wasted: ___ mg No Longer Active 12/01/2017 [facility] Acetaminophen 650 mg, 2 tab, Route: PO, Drug form: TAB, Q4H, Dosing Weight 127.273, kg, PRN Pain 1-3/Temp > 100.4 F, Start date: 11/30/17 21:35:00 CDT, Duration: 30 day, Stop date: 12/30/17 21:34:00 CDTNotes: Do not exceed 4 gm/day. (Same as: Tylenol) No Longer Active 12/01/2017 [facility] Aspirin 324 mg, 4 tab, Route: CHEW, Drug form: CHEWTAB, ONCE, Dosing Weight 127.273, kg, Priority: STAT, Start date: 11/30/17 21:10:00 CDT, Stop date: 11/30/17 21:10:00 CDTNotes: Take with food. Inactive 12/01/2017 [facility] Lasix 40 mg, 4 mL, Route: IVP, Drug form: INJ, ONCE, Dosing Weight 127.273, kg, Priority: STAT, Start date: 11/30/17 20:08:00 CDT, Stop date: 11/30/17 20:08:00 CDTNotes: (Same as: Lasix) MEDICATION WASTE Product Size: 40 mg Product Wasted: ___ mg Inactive 12/01/2017 [facility] Zofran ODT 4 mg, Route: PO, Drug form: TABDIS, ONCE, Dosing Weight 127.273, kg, Priority: STAT, Start date: 11/30/17 19:59:00 CDT, Stop date: 11/30/17 19:59:00 CDT Inactive 12/01/2017 [facility] Morphine 4 mg, Route: IVP, ONCE, Dosing Weight 127.273, kg, Priority: STAT, Start date: 11/30/17 19:59:00 CDT, Stop date: 11/30/17 19:59:00 CDT Inactive 12/01/2017 [facility] Ativan 1 mg, Route: IVP, Drug form: INJ, ONCE, Dosing Weight 127.273, kg, Priority: STAT, Start date: 11/30/17 19:58:00 CDT, Stop date: 11/30/17 19:58:00 CDT Inactive 12/01/2017 [facility] Saline Flush 0.9% 10 mL, Route: IVP, Drug Form: INJ, Dosing Weight 127.273, kg, PRN, PRN Line Flush, Start date: 11/30/17 19:46:00 CDT, Duration: 30 day, Stop date: 12/30/17 19:45:00 CDTNotes: (Same as: BD Posiflush) No Longer Active 12/01/2017 [facility] valsartan 80 mg oral tablet 40 mg=0.5 tab, PO, Q12H, # 30 tab, 0 Refill(s), Pharmacy: [facility] [id number] No Longer Active 11/08/2017 [facility] Furosemide 40 MG Oral Tablet [Lasix] 40 mg=1 tab, PO, Daily, # 30 tab, 1 Refill(s), Pharmacy: [facility] [id number] No Longer Active 11/08/2017 [facility] carvedilol 12.5 mg oral tablet 12.5 mg=1 tab, PO, Q12H, # 60 tab, 1 Refill(s), Pharmacy: [facility] [id number] No Longer Active 11/08/2017 [facility] Aspirin 81 MG Enteric Coated Tablet 81 mg=1 tab, PO, Daily, # 30 tab, 1 Refill(s), Pharmacy: [facility] [id number] Active 11/08/2017 [facility] Furosemide 40 MG Oral Tablet [Lasix] 40 mg, 1 tab, Route: PO, Drug form: TAB, Daily, Dosing Weight 119.545, kg, Start date: 11/07/17 9:57:00 CDT, Duration: 30 day, Stop date: 12/07/17 9:00:00 CDTNotes: (Same as: Lasix) May cause GI upset. Give with food or milk. No Longer Active 11/07/2017 [facility] valsartan 40 mg, 0.5 tab, Route: PO, Drug form: TAB, Q12H, Dosing Weight 119.545, kg, Start date: 11/07/17 9:56:00 CDT, Duration: 30 day, Stop date: 12/07/17 9:00:00 CDTNotes: Same as Diovan No Longer Active 11/07/2017 [facility] Nitroglycerin 0.4 mg, 1 tab, Route: SL, Drug form: TAB, Q5Min, Dosing Weight 119.545, kg, PRN Chest Pain, Start date: 11/07/17 9:46:00 CDT, Duration: 3 doses or times, Stop date: Limited # of timesNotes: (Same as: Nitroquick, Nitrostat) "Do Not Crush" Sublingual tablet No Longer Active 11/07/2017 [facility] Sodium Chloride 0.9% (Bolus) IV 250 mL, 250 ml/hr, Infuse Over: 1 hr, Route: IV, 250, Drug form: INJ, ONCALL, Priority: Routine, Dosing Weight 119.545 kg, Start date: 11/07/17 9:00:00 CDT, Duration: 1 doses or times No Longer Active 11/07/2017 [place] Sodium Chloride 0.9% IV 750 mL 750 mL, Rate: 75 ml/hr, Infuse over: 10 hr, Route: IV, Dosing Weight 119.545 kg, Total Volume: 750, Start date: 11/07/17 8:11:00 CDT, Duration: 24 hr, Stop date: 11/08/17 8:10:00 CDT, 2.47, m2 Inactive 11/07/2017 [facility] Aspirin 81 mg, 1 tab, Route: PO, Drug form: ECTAB, Daily, Dosing Weight 119.545, kg, Start date: 11/06/17 13:01:00 CDT, Duration: 30 day, Stop date: 12/06/17 9:00:00 CDTNotes: Do not crush or chew. (Same As: Ecotrin) No [facility] 0.9% (titrate) 1,000 mL 1,000 mL, Rate: 50 ml/hr, Infuse over: 20 hr, Dosing Weight 119.545, kg, Route: IV, Total Volume: 1,000, Start Date: 11/06/17 12:22:00 CDT, Duration: 30 day, Stop date: 12/06/17 12:21:00 CDT, Replace Every: 20 hr No Longer Active 11/06/2017 [facility] sodium chloride nasal spray 1 spray, Route: Each Affected Nostril, PRN, Drug form: SOLN, PRN Congestion, Start date: 11/06/17 11:04:00 CDT, Duration: 30 day, Stop date: 12/06/17 11:03:00 CDTNotes: (Same as: [place], Deep Sea Nasal [place]). No Longer Active 11/06/2017 [facility] carvedilol 12.5 mg, 1 tab, Route: PO, Drug form: TAB, Q12H, Dosing Weight 119.545, kg, Start date: 11/05/17 21:00:00 CDT, Duration: 30 day, Stop date: 12/05/17 9:00:00 CDTNotes: Give with food. (Same As: Coreg) No Longer Active 11/06/2017 [facility] Albuterol 0.83 MG/ML Inhalant Solution 2.49 mg, 3 mL, Route: NEB, Drug form: SOLN, PRN, Dosing Weight 119.545, kg, PRN Respiratory Protocol, Start date: 11/05/17 14:59:00 CDT, Duration: 30 day, Stop date: 12/05/17 14:58:00 CDTNotes: SEE RT DOCUMENTATION (Same as: Proventil) No Longer Active 11/05/2017 [facility] Acetaminophen 325 MG / Hydrocodone Bitartrate 10 MG Oral Tablet [[place] 10/325] 1 tab, PO, Q6H, knee and back pain, 0 Refill(s) Active 11/05/2017 [facility] amitriptyline 25 mg oral tablet 25 mg=1 tab, PO, Bedtime, # 30 tab, 1 Refill(s) Active 11/05/2017 [facility] Ambien 10 mg, PO, Bedtime, 0 Refill(s) Active 11/05/2017 [facility] meloxicam 15 mg oral tablet 15 mg=1 tab, PO, Daily, # 30 tab, 0 Refill(s) Active 11/05/2017 [facility] Hydrochlorothiazide 12.5 mg, 1 cap, Route: PO, Drug form: CAP, Daily, Dosing Weight 119.545, kg, Start date: 11/05/17 13:14:00 CDT, Duration: 30 day, Stop date: 12/05/17 9:00:00 CDTNotes: (Same as: Microzide) With food. No Longer Active 11/05/2017 [facility] Enoxaparin 40 mg, 0.4 mL, Route: SUB-Q, Drug form: INJ, [id number], Dosing Weight 119.545, kg, Start date: 11/05/17 11:00:00 CDT, Duration: 30 day, Stop date: 12/04/17 11:00:00 CDTNotes: (Same as: Lovenox) No Longer Active 11/05/2017 [facility] Lasix 40 mg, 4 mL, Route: IVP, Drug form: INJ, Daily, Dosing Weight 119.545, kg, Start date: 11/05/17 10:55:00 CDT, Duration: 30 day, Stop date: 12/05/17 9:00:00 CDTNotes: (Same as: Lasix) MEDICATION WASTE Product Size: 40 mg Product Wasted: ___ mg No Longer Active 11/05/2017 [facility] Acetaminophen 325 MG / Hydrocodone Bitartrate 5 MG Oral Tablet 1 tab, Route: PO, Drug Form: TAB, Dosing Weight 119.545, kg, Q4H, PRN Pain Score 4-6, Start date: 11/05/17 6:26:00 CDT, Duration: 30 day, Stop date: 12/05/17 6:25:00 CDTNotes: (Same as: [place] 325/5) Do not exceed 4gm/day of acetaminophen. No Longer Active 11/05/2017 [facility] Morphine 2 mg, 2 mL, Route: IVP, Drug form: SOLN, Q4H, Dosing Weight 119.545, kg, PRN Pain Score 7-10, Start date: 11/05/17 6:26:00 CDT, Duration: 30 day, Stop date: 12/05/17 6:25:00 CDTNotes: Preservative free. (Same as: Morphine Sulfate-PF) No Longer Active 11/05/2017 [facility] Ondansetron 4 mg, 2 mL, Route: IVP, Drug form: INJ, Q6H, Dosing Weight 119.545, kg, PRN Nausea & Vomiting, Start date: 11/05/17 6:26:00 CDT, Duration: 30 day, Stop date: 12/05/17 6:25:00 CDTNotes: (Same as: Zofran) MEDICATION WASTE Product Size: 4 mg Product Wasted: ___ mg No Longer Active 11/05/2017 [facility] Lasix 20 mg, 2 mL, Route: IVP, Drug form: INJ, ONCE, Dosing Weight 119.545, kg, Start date: 11/05/17 6:26:00 CDT, Stop date: 11/05/17 6:26:00 CDTNotes: (Same as: Lasix) Inactive 11/05/2017 [place] Albuterol 0.833 MG/ML / Ipratropium [place] 0.167 MG/ML Inhalant Solution [DuoNeb] 3 mL, Route: NEB, Drug Form: SOLN, Dosing Weight 119.545, kg, ONCE, Start date: 11/05/17 4:47:00 CDT, Stop date: 11/05/17 4:47:00 CDTNotes: (Same as: Duoneb) Inactive 11/05/2017 [place] Sodium Chloride 0.9% (Bolus) IV 500 mL, Infuse Over: 1 hr, Route: IV, ONCE, Priority: STAT, Dosing Weight 119.545 kg, Start date: 11/05/17 4:21:00 CDT, Stop date: 11/05/17 4:21:00 CDT Inactive 11/05/2017 [place] Albuterol 0.83 MG/ML Inhalant Solution 2.49 mg, Route: NEB, Drug form: SOLN, ONCE, Dosing Weight 119.545, kg, Priority: STAT, Start date: 11/05/17 3:50:00 CDT, Stop date: 11/05/17 3:50:00 CDT Inactive 11/05/2017 [place] Albuterol 0.833 MG/ML / Ipratropium [place] 0.167 MG/ML Inhalant Solution [DuoNeb] 3 mL, Route: NEB, Dosing Weight 119.545, kg, ONCE, Start date: 11/05/17 3:49:00 CDT, Stop date: 11/05/17 3:49:00 CDT Inactive 11/05/2017 [facility] Nitroglycerin 0.4 mg, Route: SL, ONCE, Dosing Weight 119.545, kg, Priority: STAT, Start date: 11/05/17 3:48:00 CDT, Stop date: 11/05/17 3:48:00 CDT Inactive 11/05/2017 [facility] methylPREDNISolone SODium SUCCinate 125 mg, 2 mL, Route: IVP, Drug form: INJ, ONCE, Dosing Weight 119.545, kg, Priority: STAT, Start date: 11/05/17 3:32:00 CDT, Stop date: 11/05/17 3:32:00 CDTNotes: (Same as:Solu- MEDROL, A-Methapred) Inactive 11/05/2017 [facility] Saline Flush 0.9% 10 mL, Route: IVP, Drug Form: INJ, Dosing Weight 119.545, kg, PRN, PRN Line Flush, Start date: 11/05/17 3:32:00 CDT, Duration: 30 day, Stop date: 12/05/17 3:31:00 CDTNotes: (Same as: BD Posiflush) No Longer Active 11/05/2017 [facility] Nitroglycerin 0.4 mg, 1 tab, Route: SL, Drug form: TAB, ONCE, Dosing Weight 119.545, kg, Priority: STAT, Start date: 11/05/17 3:31:00 CDT, Stop date: 11/05/17 3:31:00 CDTNotes: (Same as:Nitroquick, Nitrostat) "Do Not Crush" Sublingual tablet Inactive 11/05/2017 [facility] Aspirin 325 mg, 1 tab, Route: PO, Drug form: TAB, ONCE, Dosing Weight 119.545, kg, Priority: STAT, Start date: 11/05/17 3:31:00 CDT, Stop date: 11/05/17 3:31:00 CDTNotes: Take with food. Inactive 11/05/2017 [facility] Allergies, Adverse Reactions, Alerts Substance Category Reaction Severity Reaction type Status Date Reported Comments Source penicillins Assertion Drug allergy Active [facility] lisinopril Assertion Drug allergy Active [facility] Immunizations Immunization Date Given Site Status Last Updated Comments Source pneumococcal 23-valent vaccine 02/01/2018 Left Deltoid completed Joann [facility] Results Order Name Results Value Reference Range Date Interpretation Comments Source Chest CTA Chest CTA Clinical Indication: - chest pain and SOB. Comparison: CTA chest dated 03/29/2018. TECHNIQUE: CTA of the pulmonary arteries was performed. Helical imaging performed apices to the lung bases. Multiplanar reconstructions were obtained. 3-D postprocessing reconstruction MIP imaging was performed. CT imaging performed at this location utilizes radiation dose optimization techniques which include one or more of the following: -Automated exposure control -Adjustment of the mA and/or kV according to patient size -Use of iterative reconstruction technique CT Radiation Dose DLP 896.25 mGy-cm IV CONTRAST: 100 cc Omnipaque. FINDINGS: VASCULAR STRUCTURES: No segmental pulmonary emboli noted. The main, right and left pulmonary arteries are normal. The thoracic aorta is within normal limits. There is no dissection or aneurysm. The great vessels appear unremarkable. The superior vena cava is unremarkable. HEART: The cardiac chambers are unremarkable. There is no CT evidence of right ventricular strain. There is no pericardial effusion. LUNG PARENCHYMA AND PLEURA: Small lung volumes are seen with minimal dependent atelectasis. No definite CT evidence of interstitial lung disease. No CT evidence of pneumonia or airspace disease. There are no pleural effusions. There is no pneumothorax. AIRWAYS: The central airway is unremarkable. Trachea is midline. MEDIASTINUM: No significant mediastinal lymphadenopathy. VISUALIZED UPPER ABDOMEN: Unchanged left kidney mid zone simple exophytic cyst is seen. OSSEOUS STRUCTURES: Medium-sized anterolateral degenerative osteophytes are seen in the mid thoracic spine. IMPRESSION: 1. No segmental pulmonary embolism or thoracic aortic dissection. SL: [id number] 09/08/2018 - - Read by: Jefry Villa MD Dictated Date/time: 09/08/18 17:40 Electronically Signed by: Jefry Villa MD 09/08/18 17:44 FINAL REPORT [facility] Chest 1view DX Chest 1view DX EXAM: Chest 1view DX DATE: 09/08/2018 9:13 [employer] ARCHITECT INDICATION: - Chest pain shortness of breath COMPARISON: 05/29/2018. IMPRESSION: Stable cardiac silhouette and mediastinum. Low lung volume. No focal consolidation, significant pleural effusion or pneumothorax. SL: [id number] 09/08/2018 - - Read by: Florentino Hester MD Dictated Date/time: 09/08/18 09:48 Electronically Signed by: Florentino Hester MD 09/08/18 09:48 FINAL REPORT [facility] Carotid artery Doppler bilat US Carotid artery Doppler bilat US Patient Name: FABIO CUEVA : 1965; Age: 52 years y/o Male MR: [id number] CAROTID DOPPLER Clinical Indication: - Slurred speech; [...] Jayme Roberson MD 05/29/18 22:22 FINAL REPORT [facility] Brain wo contrast CT Brain wo contrast CT Patient Name: FABIO CUEVA : 1965; Age: 52 years Male MR: [id number] Study: Brain wo contrast CT 05/29/2018 1:52 [...] No mass, hemorrhage or subacute stroke. SL: [id number] 05/29/2018 - - Read by: Ben Fink MD Dictated Date/time: 05/29/18 14:12 Electronically Signed by: Ben Fink MD 05/29/18 14:19 FINAL REPORT [facility] Chest 1view DX Chest 1view DX Patient Name: FABIO CUEVA : 1965; Age: 52 years Male MR: [id number] Study: Chest 1view DX Order Time: 05/29/2018 1:09 PM CDT CLINICAL INDICATION: - Dyspnea on exertion, orthopnea COMPARISON: Chest radiograph on 05/03/2018 FINDINGS: Lines: None. Lungs: Low lung volumes and bibasilar atelectasis. No effusion or pneumothorax. Mediastinum: The cardiac silhouette is within normal limits of size. Midline trachea. Bones and soft tissues: No acute abnormalities. IMPRESSION: No acute cardiopulmonary abnormalities. SL: [id number] 05/29/2018 - - Read by: Luz Maria Ochoa MD Dictated Date/time: 05/29/18 13:23 Electronically Signed by: Luz Maria Ochoa MD 05/29/18 13:23 FINAL REPORT [facility] Abdomen RUQ US Abdomen RUQ US RIGHT [...] Beni Escobar MD 05/04/18 00:01 FINAL REPORT [facility] Chest 1view DX Chest 1view DX Clinical [...] Robyn Thomason MD 05/03/18 21:52 FINAL REPORT [facility] Chest 1view DX Chest 1view DX Clinical [...] IMPRESSION: No acute infiltrates or effusions. SL: [id number] 03/31/2018 - - Read by: Antonio Palm MD Dictated Date/time: 04/01/18 00:06 Electronically Signed by: Antonio Palm MD 04/01/18 00:08 FINAL REPORT [facility] Chest CTA Chest CTA Patient Name: FABIO CUEVA : 1965; Age: 52 years y/o Male MR: [id number] Study: Chest CTA 03/29/2018 10:46 AM CDT [...] size -Use of iterative reconstruction technique Dose: CJJ=576.23 mGy-cm FINDINGS: LUNG PARENCHYMA AND PLEURA: The [...] follow up recommended. Left renal cyst. SL: [id number] 03/29/2018 - - Read by: Lucrecia Coleman MD Dictated Date/time: 03/29/18 12:13 Electronically Signed by: Lucrecia Coleman MD 03/29/18 12:23 FINAL REPORT [facility] Chest 1view DX Chest 1view DX Study: [...] unremarkable. IMPRESSION: No acute cardiopulmonary disease. SL: [id number] 03/26/2018 - - Read by: Jackie Heller MD Dictated Date/time: 03/26/18 20:10 Electronically Signed by: Jackie Heller MD 03/26/18 20:10 FINAL REPORT [facility] ELECTROLYTES AGAP 13.2 meq/L 10.0 - 20.0 02/03/2018 [facility] ELECTROLYTES eGFR 89 mL/min/1.73m2 02/03/2018 Result Comment: [...] should be multiplied by the estimated BMI. [facility] ELECTROLYTES Sodium Lvl 137 meq/L 135 - 145 02/03/2018 [facility] ELECTROLYTES Creatinine Lvl 1.10 mg/dL 0.50 - 1.40 02/03/2018 [facility] ELECTROLYTES Glucose Lvl 160 mg/dL 70 - 99 02/03/2018 [facility] ELECTROLYTES BUN 26 mg/dL 7 - 22 02/03/2018 [facility] ELECTROLYTES Calcium Lvl 9.2 mg/dL 8.5 - 10.5 02/03/2018 [facility] ELECTROLYTES CO2 35 meq/L 24 - 32 02/03/2018 [facility] ELECTROLYTES Chloride Lvl 93 meq/L 95 - 109 02/03/2018 [facility] ELECTROLYTES Potassium Lvl 4.2 meq/L 3.5 - 5.1 02/03/2018 [facility] [facility] SPECIAL CHEMISTRY Hgb A1C 8.5 % <=5.6 % [facility] Magnesium Lvl 2.2 mg/dL 1.8 - 2.4 02/02[facility]2018 [facility] Albumin Lvl 3.3 g/dL 3.5 - 5.0 02/02/2018 [facility] ALT 26 unit/L 0 - 65 02/02/2018 [facility] Potassium Lvl 4.5 meq/L 3.5 - 5.1 02/02/2018 [facility] Bili Total 0.4 mg/dL 0.2 - 1.3 02/02/2018 [facility] Alk Phos 69 unit/L 39 - 136 02/02/2018 [facility] CHEM PANEL AST 16 unit/L 0 - 37 02/02/2018 [place] CHEM PANEL CO2 34 meq/L 24 - 32 02/02/2018 [facility] Chloride Lvl 95 meq/L 95 - 109 02/02/2018 [facility] CHEM PANEL eGFR 75 mL/min/1.73m2 02/02/2018 Result [...] should be multiplied by the estimated BMI. [facility] CHEM PANEL Total Protein 7.2 g/dL 6.4 - 8.4 02/02/2018 [facility] CHEM PANEL Calcium Lvl 9.2 mg/dL 8.5 - 10.5 02/02/2018 [facility] CHEM PANEL BUN 32 mg/dL 7 - 22 02/02/2018 [facility] Sodium Lvl 137 meq/L 135 - 145 02/02/2018 [facility] Creatinine Lvl 1.27 mg/dL 0.50 - 1.40 02/02/2018 [facility] CHEM PANEL Glucose Lvl 173 mg/dL 70 - 99 02/02/2018 [facility] CHEM PANEL AGAP 12.5 meq/L 10.0 - 20.0 02/02/2018 [facility] CHEM PANEL A/G Ratio 0.8 0.7 - 1.6 02/02/2018 [facility] CHEM PANEL Globulin 3.9 g/dL 2.7 - 4.2 02/02/2018 [facility] CHEM PANEL B/C Ratio 25 6 - 25 02/02/2018 [facility] HEMATOLOGY WBC 11.7 K/CMM 3.7 - 10.4 02/02/2018 [facility] HEMATOLOGY Platelet 258 K/CMM 133 - 450 02/02/2018 [facility] HEMATOLOGY RBC 4.71 M/CMM 4.70 - 6.10 02/02/2018 [facility] HEMATOLOGY MPV 7.6 fL 7.4 - 10.4 02/02/2018 [facility] HEMATOLOGY Hgb 14.1 g/dL 14.0 - 18.0 02/02/2018 [facility] MCH 29.9 pg 27.0 - 31.0 02/02/2018 [facility] MCV 93.9 fL 80.0 - 94.0 02/02/2018 [facility] Hct 44.3 % 42.0 - 54.0 02/02/2018 [facility] RDW 14.1 % 11.5 - 14.5 02/02/2018 [facility] MCHC 31.9 g/dL 32.0 - 36.0 02/02/2018 [facility] Eosinophils 0.1 % 0.0 - 4.0 02/02/2018 [facility] HEMATOLOGY Monocytes 8.6 % 2.0 - 12.0 02/02/2018 [facility] HEMATOLOGY Lymphocytes 20.8 % 20.0 - 40.0 02/02/2018 [facility] HEMATOLOGY Segs 70.2 % 45.0 - 75.0 02/02/2018 [facility] HEMATOLOGY Basophils 0.3 % 0.0 - 1.0 02/02/2018 [facility] HEMATOLOGY Segs-Bands # 8.2 K/CMM 1.5 - 8.1 02/02/2018 [facility] HEMATOLOGY Lymphocytes # 2.4 K/CMM 1.0 - 5.5 02/02/2018 [facility] HEMATOLOGY Monocytes # 1.0 K/CMM 0.0 - 0.8 02/02/2018 [facility] CARDIAC ENZYMES CK MB 5.4 ng/mL 0.5 - 3.6 02/01/2018 [facility] CARDIAC ENZYMES CK MB Index 1.3 0.0 - 2.5 02/01/2018 [facility] CARDIAC ENZYMES Troponin-I 0.05 ng/mL 0.00 - 0.40 02/01/2018 [facility] CARDIAC ENZYMES Total CK 422 unit/L 12 - 191 02/01/2018 [facility] BACTERIAL - SEROLOGY MRSA by PCR Negative (01/31/18 11:58 PM) 02/01/2018 [facility] DRUG SCREEN UDS Note See Note (01/31/18 11:58 PM) 02/01/2018 [facility] DRUG SCREEN U Phencyc Scr Negative *NA* (01/31/18 11:58 PM) Negative 02/01/2018 [facility] DRUG SCREEN U Opiate Scr Positive *ABN* (01/31/18 11:58 PM) Negative 02/01/2018 [facility] DRUG SCREEN U Elizabeth Scr Negative *NA* (01/31/18 11:58 PM) Negative 02/01/2018 [facility] DRUG SCREEN U Amph Scr Negative *NA* (01/31/18 11:58 PM) Negative 02/01/2018 [facility] DRUG SCREEN U Benzodia Scr Negative *NA* (01/31/18 11:58 PM) Negative 02/01/2018 [facility] DRUG SCREEN U Cannab Scr Negative *NA* (01/31/18 11:58 PM) Negative 02/01/2018 [facility] DRUG SCREEN U Cocaine Scr Negative *NA* (01/31/18 11:58 PM) Negative 02/01/2018 [place] URINE AND STOOL UA Glucose null 02/01/2018 [place] URINE AND STOOL UA Color STRAW 02/01/2018 [place] URINE AND STOOL UA Urobilinogen <=1.0 mg/dL 0.1 - 1.0 02/01/2018 [place] URINE AND STOOL UA Protein Negative mg/dL Negative mg/dL 02/01/2018 [place] URINE AND STOOL UA Ketones Negative mg/dL Negative mg/dL 02/01/2018 [place] URINE AND STOOL UA pH 6.0 5.0 - 8.0 02/01/2018 [place] URINE AND STOOL UA Bili Negative *NA* (01/31/18 11:58 PM) Negative 02/01/2018 [place] URINE AND STOOL UA Leuk Est Negative (01/31/18 11:58 PM) Negative 02/01/2018 [place] URINE AND STOOL UA Blood Small *ABN* (01/31/18 11:58 PM) Negative 02/01/2018 [place] URINE AND STOOL UA Nitrite Negative (01/31/18 11:58 PM) Negative 02/01/2018 [place] URINE AND STOOL UA WBC 1 /HPF 0 - 5 02/01/2018 [place] URINE AND STOOL UA RBC null 0 - 2 02/01/2018 [place] URINE AND STOOL UA Sq Epi None Seen 02/01/2018 [place] URINE AND STOOL UA Turbidity Clear (01/31/18 11:58 PM) Clear 02/01/2018 [facility] URINE AND STOOL UA Spec Grav 1.003 <=1.030 02/01/2018 [facility] CARDIAC ENZYMES Troponin-I 0.06 ng/mL 0.00 - 0.40 02/01/2018 [facility] CARDIAC ENZYMES Total CK 433 unit/L 12 - 191 02/01/2018 [facility] CARDIAC ENZYMES CK MB Index 1.4 0.0 - 2.5 02/01/2018 [facility] CARDIAC ENZYMES CK MB 5.9 ng/mL 0.5 - 3.6 02/01/2018 [facility] CARDIAC ENZYMES Total CK 534 unit/L 12 - 191 01/31/2018 [facility] CARDIAC ENZYMES Troponin-I 0.11 ng/mL 0.00 - 0.40 01/31/2018 [facility] CARDIAC ENZYMES CK MB Index 1.3 0.0 - 2.5 01/31/2018 [facility] CARDIAC ENZYMES proBNP 1159 pg/mL 0 - 125 01/31/2018 [facility] CARDIAC ENZYMES CK MB 6.9 ng/mL 0.5 - 3.6 01/31/2018 [facility] CHEM PANEL Lipase Lvl 146 unit/L 73 - 393 01/31/2018 [facility] CHEM PANEL eGFR 88 mL/min/1.73m2 01/31/2018 Result [...] should be multiplied by the estimated [facility]. [facility] A/G Ratio 0.8 0.7 - 1.6 01/31/2018 [facility] Globulin 4.5 g/dL 2.7 - 4.2 01/31/2018 [facility] B/C Ratio 18 6 - 25 01/31/2018 [facility] AGAP 14.6 meq/L 10.0 - 20.0 01/31/2018 [facility] Alk Phos 80 unit/L 39 - 136 01/31/2018 [facility] Bili Total 0.7 mg/dL 0.2 - 1.3 01/31/2018 [facility] AST 35 unit/L 0 - 37 01/31/2018 [facility] BUN 20 mg/dL 7 - 22 01/31/2018 [facility] Glucose Lvl 133 mg/dL 70 - 99 01/31/2018 [facility] ALT 25 unit/L 0 - 65 01/31/2018 [facility] Chloride Lvl 91 meq/L 95 - 109 01/31/2018 [facility] Total Protein 8.3 g/dL 6.4 - 8.4 01/31/2018 [facility] CHEM PANEL CO2 27 meq/L 24 - 32 01/31/2018 [facility] CHEM PANEL Calcium Lvl 8.8 mg/dL 8.5 - 10.5 01/31/2018 [facility] CHEM PANEL Albumin Lvl 3.8 g/dL 3.5 - 5.0 01/31/2018 [facility] CHEM PANEL Creatinine Lvl 1.11 mg/dL 0.50 - 1.40 01/31/2018 [facility] CHEM PANEL Sodium Lvl 128 meq/L 135 - 145 01/31/2018 [facility] CHEM PANEL Potassium Lvl 4.6 meq/L 3.5 - 5.1 01/31/2018 [facility] HEMATOLOGY Monocytes 7.2 % 2.0 - 12.0 01/31/2018 [facility] HEMATOLOGY Segs 57.4 % 45.0 - 75.0 01/31/2018 [facility] HEMATOLOGY Lymphocytes 33.8 % 20.0 - 40.0 01/31/2018 [facility] HEMATOLOGY Lymphocytes # 2.6 K/CMM 1.0 - 5.5 01/31/2018 [facility] HEMATOLOGY Eosinophils 1.1 % 0.0 - 4.0 01/31/2018 [facility] HEMATOLOGY Segs-Bands # 4.5 K/CMM 1.5 - 8.1 01/31/2018 [facility] HEMATOLOGY Basophils 0.5 % 0.0 - 1.0 01/31/2018 [facility] HEMATOLOGY Eosinophils # 0.1 K/CMM 0.0 - 0.5 01/31/2018 [facility] HEMATOLOGY Monocytes # 0.6 K/CMM 0.0 - 0.8 01/31/2018 [facility] HEMATOLOGY Hgb 15.4 g/dL 14.0 - 18.0 01/31/2018 [facility] HEMATOLOGY Hct 45.4 % 42.0 - 54.0 01/31/2018 [facility] HEMATOLOGY RBC 5.03 M/CMM 4.70 - 6.10 01/31/2018 [facility] WBC 7.8 K/CMM 3.7 - 10.4 01/31/2018 [facility] HEMATOLOGY MCV 90.3 fL 80.0 - 94.0 01/31/2018 [facility] MCH 30.6 pg 27.0 - 31.0 01/31/2018 [facility] HEMATOLOGY Platelet 269 K/CMM 133 - 450 01/31/2018 [facility] HEMATOLOGY MPV 7.4 fL 7.4 - 10.4 01/31/2018 [facility] HEMATOLOGY RDW 13.8 % 11.5 - 14.5 01/31/2018 [facility] HEMATOLOGY MCHC 33.9 g/dL 32.0 - 36.0 01/31/2018 [facility] CHEM PANEL eGFR 87 mL/min/1.73m2 01/09/2018 Result [...] should be multiplied by the estimated [facility]. [facility] BUN 24 mg/dL 7 - 22 01/09/2018 [facility] Creatinine Lvl 1.13 mg/dL 0.50 - 1.40 01/09/2018 [facility] Potassium Lvl 4.0 meq/L 3.5 - 5.1 01/09/2018 [facility] CHEM PANEL Sodium Lvl 139 meq/L 135 - 145 01/09/2018 [facility] Chloride Lvl 99 meq/L 95 - 109 01/09/2018 [facility] CO2 33 meq/L 24 - 32 01/09/2018 [facility] Calcium Lvl 9.0 mg/dL 8.5 - 10.5 01/09/2018 [facility] Glucose Lvl 162 mg/dL 70 - 99 01/09/2018 [facility] CHEM PANEL AGAP 11.0 meq/L 10.0 - 20.0 01/09/2018 [facility] CHEM PANEL Magnesium Lvl 2.1 mg/dL 1.8 - 2.4 01/09/2018 [facility] Hgb 15.0 g/dL 14.0 - 18.0 01/09/2018 [facility] RBC 4.88 M/CMM 4.70 - 6.10 01/09/2018 [facility] WBC 9.0 K/CMM 3.7 - 10.4 01/09/2018 [facility] Hct 44.1 % 42.0 - 54.0 01/09/2018 [facility] MCV 90.4 fL 80.0 - 94.0 01/09/2018 [facility] Platelet 254 K/CMM 133 - 450 01/09/2018 [facility] RDW 14.2 % 11.5 - 14.5 01/09/2018 [facility] MCH 30.8 pg 27.0 - 31.0 01/09/2018 [facility] MCHC 34.1 g/dL 32.0 - 36.0 01/09/2018 [facility] MPV 7.5 fL 7.4 - 10.4 01/09/2018 [facility] Segs 50.9 % 45.0 - 75.0 01/09/2018 [facility] Lymphocytes 39.2 % 20.0 - 40.0 01/09/2018 [facility] Monocytes 9.0 % 2.0 - 12.0 01/09/2018 [facility] Segs-Bands # 4.6 K/CMM 1.5 - 8.1 01/09/2018 [facility] Lymphocytes # 3.5 K/CMM 1.0 - 5.5 01/09/2018 [facility] Eosinophils 0.4 % 0.0 - 4.0 01/09/2018 [facility] Basophils 0.5 % 0.0 - 1.0 01/09/2018 [facility] Monocytes # 0.8 K/CMM 0.0 - 0.8 01/09/2018 [facility] CHEM PANEL Magnesium Lvl 2.1 mg/dL 1.8 - 2.4 01/08/2018 [facility] CHEM PANEL eGFR 87 mL/min/1.73m2 01/08/2018 Result [...] should be multiplied by the estimated [facility]. [facility] Sodium Lvl 138 meq/L 135 - 145 01/08/2018 [facility] CHEM PANEL CO2 35 meq/L 24 - 32 01/08/2018 [facility] CHEM PANEL Potassium Lvl 3.9 meq/L 3.5 - 5.1 01/08/2018 [facility] CHEM PANEL Creatinine Lvl 1.13 mg/dL 0.50 - 1.40 01/08/2018 [facility] CHEM PANEL Chloride Lvl 98 meq/L 95 - 109 01/08/2018 [facility] CHEM PANEL BUN 27 mg/dL 7 - 22 01/08/2018 [facility] CHEM PANEL Glucose Lvl 187 mg/dL 70 - 99 01/08/2018 [facility] CHEM PANEL Calcium Lvl 9.1 mg/dL 8.5 - 10.5 01/08/2018 [facility] CHEM PANEL AGAP 8.9 meq/L 10.0 - 20.0 01/08/2018 [facility] HEMATOLOGY MPV 7.3 fL 7.4 - 10.4 01/08/2018 [facility] HEMATOLOGY RBC 4.64 M/CMM 4.70 - 6.10 01/08/2018 [facility] HEMATOLOGY Platelet 261 K/CMM 133 - 450 01/08/2018 [facility] HEMATOLOGY Hgb 14.2 g/dL 14.0 - 18.0 01/08/2018 [facility] HEMATOLOGY Hct 42.1 % 42.0 - 54.0 01/08/2018 [facility] MCHC 33.7 g/dL 32.0 - 36.0 01/08/2018 [facility] RDW 14.0 % 11.5 - 14.5 01/08/2018 [facility] MCV 90.9 fL 80.0 - 94.0 01/08/2018 [facility] MCH 30.6 pg 27.0 - 31.0 01/08/2018 [facility] HEMATOLOGY WBC 8.8 K/CMM 3.7 - 10.4 01/08/2018 [facility] HEMATOLOGY Monocytes # 0.8 K/CMM 0.0 - 0.8 01/08/2018 [facility] HEMATOLOGY Segs 59.3 % 45.0 - 75.0 01/08/2018 [facility] Lymphocytes 31.1 % 20.0 - 40.0 01/08/2018 [facility] Monocytes 8.9 % 2.0 - 12.0 01/08/2018 [facility] Lymphocytes # 2.7 K/CMM 1.0 - 5.5 01/08/2018 [facility] Segs-Bands # 5.2 K/CMM 1.5 - 8.1 01/08/2018 [facility] HEMATOLOGY Eosinophils 0.3 % 0.0 - 4.0 01/08/2018 [facility] Basophils 0.4 % 0.0 - 1.0 01/08/2018 [facility] Knee 1-2 Views unilateral DX Knee 1-2 Views unilateral DX Patient Name: FABIO CUEVA : 1965; Age: 52 years y/o Male MR: [id number] Study: 2 view right knee 01/07/2018 6:28 [...] Nahum Noble MD 01/08/18 07:40 FINAL REPORT [facility] eGFR 81 mL/min/1.73m2 01/07/2018 Result Comment: The [...] should be multiplied by the estimated [facility]. [facility] Chloride Lvl 99 meq/L 95 - 109 01/07/2018 [facility] Sodium Lvl 137 meq/L 135 - 145 01/07/2018 [facility] CHEM PANEL Potassium Lvl 4.4 meq/L 3.5 - 5.1 01/07/2018 [facility] CHEM PANEL Calcium Lvl 9.4 mg/dL 8.5 - 10.5 01/07/2018 [facility] CO2 31 meq/L 24 - 32 01/07/2018 [facility] CHEM PANEL Glucose Lvl 308 mg/dL 70 - 99 01/07/2018 [facility] CHEM PANEL BUN 21 mg/dL 7 - 22 01/07/2018 [facility] CHEM PANEL Creatinine Lvl 1.19 mg/dL 0.50 - 1.40 01/07/2018 [facility] CHEM PANEL AGAP 11.4 meq/L 10.0 - 20.0 01/07/2018 [facility] HEMATOLOGY Monocytes # 0.4 K/CMM 0.0 - 0.8 01/07/2018 [facility] HEMATOLOGY Lymphocytes # 1.6 K/CMM 1.0 - 5.5 01/07/2018 [facility] HEMATOLOGY Segs-Bands # 8.1 K/CMM 1.5 - 8.1 01/07/2018 [facility] HEMATOLOGY Basophils 0.3 % 0.0 - 1.0 01/07/2018 [facility] HEMATOLOGY Segs 80.2 % 45.0 - 75.0 01/07/2018 [facility] HEMATOLOGY Lymphocytes 16.0 % 20.0 - 40.0 01/07/2018 [facility] HEMATOLOGY Monocytes 3.5 % 2.0 - 12.0 01/07/2018 [facility] HEMATOLOGY Platelet 268 K/CMM 133 - 450 01/07/2018 [facility] HEMATOLOGY MPV 7.7 fL 7.4 - 10.4 01/07/2018 [facility] HEMATOLOGY WBC 10.1 K/CMM 3.7 - 10.4 01/07/2018 [facility] HEMATOLOGY RBC 4.78 M/CMM 4.70 - 6.10 01/07/2018 [facility] HEMATOLOGY MCV 91.2 fL 80.0 - 94.0 01/07/2018 [facility] HEMATOLOGY Hgb 14.7 g/dL 14.0 - 18.0 01/07/2018 [facility] Hct 43.6 % 42.0 - 54.0 01/07/2018 [facility] MCHC 33.7 g/dL 32.0 - 36.0 01/07/2018 [facility] MCH 30.7 pg 27.0 - 31.0 01/07/2018 [facility] RDW 14.0 % 11.5 - 14.5 01/07/2018 [facility] CARDIAC ENZYMES Troponin-I 0.05 ng/mL 0.00 - 0.40 01/06/2018 [facility] CARDIAC ENZYMES Total CK 172 unit/L 12 - 01/06/2018 [facility] CARDIAC ENZYMES CK MB Index 2.4 0.0 - 2.5 01/06/2018 [facility] CARDIAC ENZYMES CK MB 4.1 ng/mL 0.5 - 3.6 01/06/2018 [facility] CHEM PANEL Magnesium Lvl 1.9 mg/dL 1.8 - 2.4 01/06/2018 [facility] CHEM PANEL Phosphorus 4.5 mg/dL 2.5 - 4.5 01/06/2018 [facility] CARDIAC ENZYMES CK MB Index 2.3 0.0 - 2.5 01/06/2018 [facility] CARDIAC ENZYMES CK MB 4.7 ng/mL 0.5 - 3.6 01/06/2018 [facility] CARDIAC ENZYMES Troponin-I 0.06 ng/mL 0.00 - 0.40 01/06/2018 [facility] CARDIAC ENZYMES Total CK 205 unit/L 12 - 191 01/06/2018 [facility] BACTERIAL - SEROLOGY MRSA by PCR Negative (01/06/18 6:47 AM) 01/06/2018 [facility] CARDIAC ENZYMES CK MB Index 2.1 0.0 - 2.5 01/06/2018 [facility] CARDIAC ENZYMES proBNP 219 pg/mL 0 - 125 01/06/2018 [facility] CARDIAC ENZYMES Total CK 249 unit/L 12 - 191 01/06/2018 [facility] CARDIAC ENZYMES Troponin-I 0.08 ng/mL 0.00 - 0.40 01/06/2018 [facility] CARDIAC ENZYMES CK MB 5.2 ng/mL 0.5 - 3.6 01/06/2018 [facility] CHEM PANEL B/C Ratio 15 6 - 25 01/06/2018 [facility] CHEM PANEL Globulin 4.6 g/dL 2.7 - 4.2 01/06/2018 [facility] CHEM PANEL A/G Ratio 0.8 0.7 - 1.6 01/06/2018 [facility] CHEM PANEL Bili Total 0.2 mg/dL 0.2 - 1.3 01/06/2018 [facility] CHEM PANEL AST 21 unit/L 0 - 37 01/06/2018 [facility] CHEM PANEL Alk Phos 81 unit/L 39 - 136 01/06/2018 [facility] CHEM PANEL ALT 30 unit/L 0 - 65 01/06/2018 [facility] CHEM PANEL Total Protein 8.4 g/dL 6.4 - 8.4 01/06/2018 [facility] CHEM PANEL Albumin Lvl 3.8 g/dL 3.5 - 5.0 01/06/2018 [facility] HEMATOLOGY Eosinophils 1.4 % 0.0 - 4.0 01/06/2018 [facility] HEMATOLOGY Eosinophils # 0.1 K/CMM 0.0 - 0.5 01/06/2018 [facility] HEMATOLOGY Basophils # 0.1 K/CMM 0.0 - 0.2 01/06/2018 [facility] HEMATOLOGY Plt Morph Normal (01/06/18 3:30 AM) 01/06/2018 [facility] HEMATOLOGY RBC Morph Normal (01/06/18 3:30 AM) 01/06/2018 [facility] HEMATOLOGY PTT 28.2 s 22.9 - 35.8 01/06/2018 [facility] HEMATOLOGY PT 12.4 s 12.0 - 14.7 01/06/2018 [facility] HEMATOLOGY INR 0.92 0.85 - 1.17 01/06/2018 [facility] Chest Pulmonary Embolism CTA Chest Pulmonary Embolism [...] 1. Unremarkable CTA of the chest. SL: [id number] 01/06/2018 - - Read by: Antonio Palm MD Dictated Date/time: 01/06/18 04:48 Electronically Signed by: Antonio Palm MD 01/06/18 04:52 FINAL REPORT [facility] Chest 1view DX Chest 1view DX Clinical Indication: - Shortness of breath Comparison: 11/30/2017 FINDINGS: AP chest radiograph was obtained. MEDIASTINUM: The cardiac silhouette is normal in size. The aorta is unremarkable. LUNGS: Lung volumes are maintained. There are no focal infiltrates or effusions. There are no pneumothoraces noted. BONES: The visualized osseous structures are unremarkable. IMPRESSION: No acute infiltrates or effusions. SL: [id number] 01/06/2018 - - Read by: Antonio Palm MD Dictated Date/time: 01/06/18 03:49 Electronically Signed by: Antonio Palm MD 01/06/18 03:50 FINAL REPORT [facility] CHEM PANEL eGFR 86 mL/min/1.73m2 12/04/2017 Result [...] should be multiplied by the estimated BMI. [place] CHEM PANEL AGAP 8.7 meq/L 10.0 - 20.0 12/04/2017 [place] CHEM PANEL CO2 34 meq/L 24 - 32 12/04/2017 [place] CHEM PANEL Calcium Lvl 8.8 mg/dL 8.5 - 10.5 12/04/2017 [facility] Chloride Lvl 99 meq/L 95 - 109 12/04/2017 [facility] Potassium Lvl 3.7 meq/L 3.5 - 5.1 12/04/2017 [place] CHEM PANEL Creatinine Lvl 1.14 mg/dL 0.50 - 1.40 12/04/2017 [place] CHEM PANEL BUN 25 mg/dL 7 - 22 12/04/2017 [place] CHEM PANEL Glucose Lvl 153 mg/dL 70 - 99 12/04/2017 [place] CHEM PANEL Sodium Lvl 138 meq/L 135 - 145 12/04/2017 [place] CHEM PANEL Magnesium Lvl 2.1 mg/dL 1.8 - 2.4 12/04/2017 [facility] Magnesium Lvl 2.1 mg/dL 1.8 - 2.4 12/03/2017 [place] CHEM PANEL Calcium Lvl 8.8 mg/dL 8.5 - 10.5 12/03/2017 [place] CHEM PANEL AGAP 11.0 meq/L 10.0 - 20.0 12/03/2017 [place] CHEM PANEL CO2 33 meq/L 24 - 32 12/03/2017 [facility] Potassium Lvl 4.0 meq/L 3.5 - 5.1 12/03/2017 [place] CHEM PANEL Chloride Lvl 99 meq/L 95 - 109 12/03/2017 [facility] Sodium Lvl 139 meq/L 135 - 145 12/03/2017 [place] CHEM PANEL Glucose Lvl 153 mg/dL 70 - 99 12/03/2017 [facility] [place] CHEM PANEL BUN 28 mg/dL 7 - 22 12/03/2017 [facility] CHEM PANEL Creatinine Lvl 1.30 mg/dL 0.50 - 1.40 12/03/2017 [facility] CHEM PANEL eGFR 73 mL/min/1.73m2 12/03/2017 Result [...] should be multiplied by the estimated BMI. [facility] CARDIAC ENZYMES BNP 28 pg/mL <=100 pg/mL 12/02/2017 [facility] CHEM PANEL Magnesium Lvl 2.2 mg/dL 1.8 - 2.4 12/02/2017 [facility] CHEM PANEL eGFR 81 mL/min/1.73m2 12/02/2017 Result [...] should be multiplied by the estimated BMI. [place] CHEM PANEL Sodium Lvl 139 meq/L 135 - 145 12/02/2017 [facility] Chloride Lvl 98 meq/L 95 - 109 12/02/2017 [facility] Potassium Lvl 3.9 meq/L 3.5 - 5.1 12/02/2017 [facility] CHEM PANEL Creatinine Lvl 1.19 mg/dL 0.50 - 1.40 12/02/2017 [facility] CHEM PANEL BUN 23 mg/dL 7 - 22 12/02/2017 [facility] CHEM PANEL AGAP 8.9 meq/L 10.0 - 20.0 12/02/2017 [facility] CHEM PANEL Calcium Lvl 9.0 mg/dL 8.5 - 10.5 12/02/2017 [facility] CHEM PANEL CO2 36 meq/L 24 - 32 12/02/2017 [facility] CHEM PANEL Glucose Lvl 167 mg/dL 70 - 99 12/02/2017 [facility] Abdomen AP DX Abdomen AP DX Patient Name: FABIO CUEVA : 1965; Age: 52 years y/o Male MR: [id number] * ABDOMEN, 1 view HISTORY: Acute generalized [...] Jayme Roberson MD 12/01/17 17:35 FINAL REPORT [facility] CARDIAC ENZYMES CK MB Index 2.1 0.0 - 2.5 12/01/2017 [facility] CARDIAC ENZYMES CK MB 3.8 ng/mL 0.5 - 3.6 12/01/2017 [facility] CARDIAC ENZYMES Troponin-I 0.03 ng/mL 0.00 - 0.40 12/01/2017 [facility] CARDIAC ENZYMES Total CK 185 unit/L 12 - 191 12/01/2017 [facility] CHEM PANEL B/C Ratio 16 6 - 25 12/01/2017 [facility] CHEM PANEL Globulin 4.8 g/dL 2.7 - 4.2 12/01/2017 [facility] CHEM PANEL A/G Ratio 0.8 0.7 - 1.6 12/01/2017 [facility] CHEM PANEL ALT 30 unit/L 0 - 65 12/01/2017 [facility] CHEM PANEL Total Protein 8.6 g/dL 6.4 - 8.4 12/01/2017 [facility] CHEM PANEL Albumin Lvl 3.8 g/dL 3.5 - 5.0 12/01/2017 [facility] CHEM PANEL Bili Total 0.4 mg/dL 0.2 - 1.3 12/01/2017 [facility] CHEM PANEL Alk Phos 79 unit/L 39 - 136 12/01/2017 [facility] CHEM PANEL AST 16 unit/L 0 - 37 12/01/2017 [facility] HEMATOLOGY Segs 58.6 % 45.0 - 75.0 12/01/2017 [facility] HEMATOLOGY Lymphocytes 36.7 % 20.0 - 40.0 12/01/2017 [facility] HEMATOLOGY Segs-Bands # 4.1 K/CMM 1.5 - 8.1 12/01/2017 [facility] HEMATOLOGY Lymphocytes # 2.6 K/CMM 1.0 - 5.5 12/01/2017 [facility] HEMATOLOGY Eosinophils 0.3 % 0.0 - 4.0 12/01/2017 [facility] HEMATOLOGY Monocytes 4.1 % 2.0 - 12.0 12/01/2017 [facility] HEMATOLOGY Basophils 0.3 % 0.0 - 1.0 12/01/2017 [facility] Monocytes # 0.3 K/CMM 0.0 - 0.8 12/01/2017 [facility] HEMATOLOGY PTT 30.7 s 22.9 - 35.8 12/01/2017 [facility] HEMATOLOGY PT 13.3 s 12.0 - 14.7 12/01/2017 [facility] HEMATOLOGY INR 1.01 0.85 - 1.17 12/01/2017 [facility] HEMATOLOGY MCH 30.2 pg 27.0 - 31.0 12/01/2017 [facility] HEMATOLOGY MCV 91.7 fL 80.0 - 94.0 12/01/2017 [facility] HEMATOLOGY Hct 44.8 % 42.0 - 54.0 12/01/2017 [facility] HEMATOLOGY MCHC 33.0 g/dL 32.0 - 36.0 12/01/2017 [facility] HEMATOLOGY RDW 14.5 % 11.5 - 14.5 12/01/2017 [facility] HEMATOLOGY Platelet 273 K/CMM 133 - 450 12/01/2017 [facility] HEMATOLOGY MPV 7.8 fL 7.4 - 10.4 12/01/2017 [facility] HEMATOLOGY Hgb 14.8 g/dL 14.0 - 18.0 12/01/2017 [facility] HEMATOLOGY WBC 7.0 K/CMM 3.7 - 10.4 12/01/2017 [facility] HEMATOLOGY RBC 4.89 M/CMM 4.70 - 6.10 12/01/2017 [facility] SPECIAL CHEMISTRY Hgb A1C 7.3 % <=5.6 % 12/01/2017 [facility] Knee 1-2 Views unilateral DX Knee 1-2 [...] seen. IMPRESSION: Severe osteoarthritis. No fracture. SL: [id number] 12/01/2017 - - Read by: Angel Carson MD Dictated Date/time: 12/01/17 09:31 Electronically Signed by: Angel Carson MD 12/01/17 09:32 FINAL REPORT [facility] Pelvis AP DX Pelvis AP DX Study: Pelvis AP DX portable 11/23/2017 0543 hours Clinical Indication: - pain in lower back and pelvis after fall; Comparison: None FINDINGS: Image quality is severely compromised by the large patient size. No gross fracture or dislocation is identified. Sacroiliac and hip joints are maintained. SL: [id number] 12/01/2017 - - Read by: Angel Carson MD Dictated Date/time: 12/01/17 09:32 Electronically Signed by: Angel Carson MD 12/01/17 09:33 FINAL REPORT [facility] CARDIAC ENZYMES CK MB 3.5 ng/mL 0.5 - 3.6 12/01/2017 [facility] CARDIAC ENZYMES CK MB Index 1.9 0.0 - 2.5 12/01/2017 [facility] CARDIAC ENZYMES Troponin-I 0.04 ng/mL 0.00 - 0.40 12/01/2017 [facility] CARDIAC ENZYMES Total CK 189 unit/L 12 - 191 12/01/2017 [facility] CARDIAC ENZYMES CK MB Index 1.8 0.0 - 2.5 12/01/2017 [facility] CARDIAC ENZYMES Troponin-I 0.05 ng/mL 0.00 - 0.40 12/01/2017 [facility] CARDIAC ENZYMES proBNP 318 pg/mL 0 - 125 12/01/2017 [facility] CARDIAC ENZYMES Total CK 217 unit/L 12 - 191 12/01/2017 [facility] CARDIAC ENZYMES CK MB 4.0 ng/mL 0.5 - 3.6 12/01/2017 [facility] CHEM PANEL Bili Total 0.3 mg/dL 0.2 - 1.3 12/01/2017 [facility] CHEM PANEL A/G Ratio 0.8 0.7 - 1.6 12/01/2017 [facility] CHEM PANEL Globulin 4.6 g/dL 2.7 - 4.2 12/01/2017 [facility] CHEM PANEL Alk Phos 83 unit/L 39 - 136 12/01/2017 [facility] CHEM PANEL B/C Ratio 14 6 - 25 12/01/2017 [facility] CHEM PANEL Total Protein 8.4 g/dL 6.4 - 8.4 12/01/2017 [facility] CHEM PANEL Albumin Lvl 3.8 g/dL 3.5 - 5.0 12/01/2017 [facility] CHEM PANEL ALT 30 unit/L 0 - 65 12/01/2017 [facility] CHEM PANEL AST 20 unit/L 0 - 37 12/01/2017 [facility] HEMATOLOGY Eosinophils 1.3 % 0.0 - 4.0 12/01/2017 [facility] HEMATOLOGY Monocytes 7.0 % 2.0 - 12.0 12/01/2017 [facility] HEMATOLOGY Lymphocytes 38.5 % 20.0 - 40.0 12/01/2017 [facility] HEMATOLOGY Segs 52.7 % 45.0 - 75.0 12/01/2017 [facility] HEMATOLOGY Eosinophils # 0.1 K/CMM 0.0 - 0.5 12/01/2017 [facility] HEMATOLOGY Monocytes # 0.5 K/CMM 0.0 - 0.8 12/01/2017 [facility] HEMATOLOGY Lymphocytes # 2.9 K/CMM 1.0 - 5.5 12/01/2017 [facility] HEMATOLOGY Segs-Bands # 4.0 K/CMM 1.5 - 8.1 12/01/2017 [facility] Basophils 0.5 % 0.0 - 1.0 12/01/2017 [facility] PTT 28.9 s 22.9 - 35.8 12/01/2017 [facility] PT 13.1 s 12.0 - 14.7 12/01/2017 [facility] INR 0.99 0.85 - 1.17 12/01/2017 [facility] Hct 44.6 % 42.0 - 54.0 12/01/2017 [facility] Hgb 14.8 g/dL 14.0 - 18.0 12/01/2017 [facility] RBC 4.93 M/CMM 4.70 - 6.10 12/01/2017 [facility] MPV 7.9 fL 7.4 - 10.4 12/01/2017 [facility] Platelet 266 K/CMM 133 - 450 12/01/2017 [facility] RDW 14.4 % 11.5 - 14.5 12/01/2017 [facility] MCHC 33.2 g/dL 32.0 - 36.0 12/01/2017 [facility] MCH 30.1 pg 27.0 - 31.0 12/01/2017 [facility] WBC 7.6 K/CMM 3.7 - 10.4 12/01/2017 [facility] MCV 90.6 fL 80.0 - 94.0 12/01/2017 [facility] Chest 1view DX Chest 1view DX Clinical [...] IMPRESSION: Left midlung scarring or atelectasis. SL: [id number] 11/30/2017 - - Read by: Fidencio Eli MD Dictated Date/time: 11/30/17 20:22 Electronically Signed by: Fidencio Eli MD 11/30/17 20:25 FINAL REPORT [facility] CHEM PANEL Magnesium Lvl 2.2 mg/dL 1.8 - 2.4 11/08/2017 [facility] CHEM PANEL Phosphorus 4.1 mg/dL 2.5 - 4.5 11/08/2017 [facility] ELECTROLYTES AGAP 9.2 meq/L 10.0 - 20.0 11/08/2017 [facility] ELECTROLYTES B/C Ratio 19 6 - 25 11/08/2017 [facility] ELECTROLYTES Globulin 4.3 g/dL 2.7 - 4.2 11/08/2017 [facility] ELECTROLYTES A/G Ratio 0.8 0.7 - 1.6 11/08/2017 [facility] ELECTROLYTES eGFR 85 mL/min/1.73m2 11/08/2017 Result Comment: [...] should be multiplied by the estimated BMI. [facility] ELECTROLYTES Total Protein 7.8 g/dL 6.4 - 8.4 11/08/2017 [facility] ELECTROLYTES ALT 28 unit/L 0 - 65 11/08/2017 [facility] ELECTROLYTES Albumin Lvl 3.5 g/dL 3.5 - 5.0 11/08/2017 [facility] ELECTROLYTES AST 14 unit/L 0 - 37 11/08/2017 [facility] ELECTROLYTES Alk Phos 72 unit/L 39 - 136 11/08/2017 [facility] ELECTROLYTES Bili Total 0.5 mg/dL 0.2 - 1.3 11/08/2017 [facility] ELECTROLYTES Calcium Lvl 9.0 mg/dL 8.5 - 10.5 11/08/2017 [facility] ELECTROLYTES Glucose Lvl 117 mg/dL 70 - 99 11/08/2017 [facility] ELECTROLYTES BUN 22 mg/dL 7 - 22 11/08/2017 [facility] ELECTROLYTES Creatinine Lvl 1.15 mg/dL 0.50 - 1.40 11/08/2017 [facility] ELECTROLYTES CO2 31 meq/L 24 - 32 11/08/2017 [facility] ELECTROLYTES Potassium Lvl 4.2 meq/L 3.5 - 5.1 11/08/2017 [facility] ELECTROLYTES Sodium Lvl 138 meq/L 135 - 145 11/08/2017 [facility] ELECTROLYTES Chloride Lvl 102 meq/L 95 - 109 11/08/2017 [facility] HEMATOLOGY MCHC 34.3 g/dL 32.0 - 36.0 11/08/2017 [facility] HEMATOLOGY MCV 89.9 fL 80.0 - 94.0 11/08/2017 [facility] MCH 30.8 pg 27.0 - 31.0 11/08/2017 [facility] HEMATOLOGY RDW 14.7 % 11.5 - 14.5 11/08/2017 [facility] HEMATOLOGY Platelet 296 K/CMM 133 - 450 11/08/2017 [facility] MPV 7.7 fL 7.4 - 10.4 11/08/2017 [facility] HEMATOLOGY WBC 7.2 K/CMM 3.7 - 10.4 11/08/2017 [facility] HEMATOLOGY Hct 43.3 % 42.0 - 54.0 11/08/2017 [facility] HEMATOLOGY RBC 4.81 M/CMM 4.70 - 6.10 11/08/2017 [facility] Hgb 14.8 g/dL 14.0 - 18.0 11/08/2017 [facility] Eosinophils 1.5 % 0.0 - 4.0 11/08/2017 [facility] HEMATOLOGY Eosinophils # 0.1 K/CMM 0.0 - 0.5 11/08/2017 [facility] HEMATOLOGY Monocytes # 0.6 K/CMM 0.0 - 0.8 11/08/2017 [facility] Lymphocytes # 3.1 K/CMM 1.0 - 5.5 11/08/2017 [facility] HEMATOLOGY Segs-Bands # 3.3 K/CMM 1.5 - 8.1 11/08/2017 [facility] Basophils 0.5 % 0.0 - 1.0 11/08/2017 [facility] HEMATOLOGY Segs 45.7 % 45.0 - 75.0 11/08/2017 [facility] Monocytes 8.9 % 2.0 - 12.0 11/08/2017 [facility] HEMATOLOGY Lymphocytes 43.4 % 20.0 - 40.0 [facility]08[facility] Magnesium Lvl 2.2 mg/dL 1.8 - 2.4 11/07/2017 [facility] Phosphorus 3.6 mg/dL 2.5 - 4.5 11/07/2017 [facility] eGFR 93 mL/min/1.73m2 11/07/2017 Result [...] should be multiplied by the estimated BMI. [facility] Calcium Lvl 8.6 mg/dL 8.5 - 10.5 11/07/2017 [facility] AGAP 9.5 meq/L 10.0 - 20.0 11/07/2017 [facility] Potassium Lvl 4.5 meq/L 3.5 - 5.1 11/07/2017 [facility] CO2 32 meq/L 24 - 32 11/07/2017 [facility] Chloride Lvl 100 meq/L 95 - 109 11/07/2017 [facility] Sodium Lvl 137 meq/L 135 - 145 11/07/2017 [facility] BUN 25 mg/dL 7 - 22 11/07/2017 [facility] Glucose Lvl 121 mg/dL 70 - 99 11/07/2017 [facility] Creatinine Lvl 1.06 mg/dL 0.50 - 1.40 11/07/2017 [facility] Alk Phos 70 unit/L 39 - 136 11/06/2017 [facility] Bili Total 0.5 mg/dL 0.2 - 1.3 11/06/2017 [facility] eGFR 65 mL/min/1.73m2 11/06/2017 Result [...] should be multiplied by the estimated BMI. [facility] CHEM PANEL Potassium Lvl 4.2 meq/L 3.5 - 5.1 11/06/2017 [facility] CHEM PANEL Sodium Lvl 137 meq/L 135 - 145 11/06/2017 [facility] CHEM PANEL Creatinine Lvl 1.44 mg/dL 0.50 - 1.40 11/06/2017 [facility] CHEM PANEL Chloride Lvl 102 meq/L 95 - 109 11/06/2017 [facility] CHEM PANEL CO2 29 meq/L 24 - 32 11/06/2017 [facility] CHEM PANEL Glucose Lvl 158 mg/dL 70 - 99 11/06/2017 [facility] CHEM PANEL BUN 30 mg/dL 7 - 22 11/06/2017 [facility] CHEM PANEL Albumin Lvl 3.8 g/dL 3.5 - 5.0 11/06/2017 [facility] CHEM PANEL Total Protein 8.1 g/dL 6.4 - 8.4 11/06/2017 [facility] CHEM PANEL Calcium Lvl 9.1 mg/dL 8.5 - 10.5 11/06/2017 [facility] CHEM PANEL ALT 30 unit/L 0 - 65 11/06/2017 [facility] CHEM PANEL AST 21 unit/L 0 - 37 11/06/2017 [facility] CHEM PANEL A/G Ratio 0.9 0.7 - 1.6 11/06/2017 [facility] CHEM PANEL B/C Ratio 21 6 - 25 11/06/2017 [facility] CHEM PANEL AGAP 10.2 meq/L 10.0 - 20.0 11/06/2017 [facility] CHEM PANEL Globulin 4.3 g/dL 2.7 - 4.2 11/06/2017 [facility] CHEM PANEL Phosphorus 4.6 mg/dL 2.5 - 4.5 11/06/2017 [facility] CHEM PANEL Magnesium Lvl 2.3 mg/dL 1.8 - 2.4 11/06/2017 [facility] HEMATOLOGY Lymphocytes # 3.2 K/CMM 1.0 - 5.5 11/06/2017 [facility] HEMATOLOGY Segs-Bands # 7.0 K/CMM 1.5 - 8.1 11/06/2017 [facility] Monocytes # 0.8 K/CMM 0.0 - 0.8 11/06/2017 [facility] HEMATOLOGY Basophils # 0.1 K/CMM 0.0 - 0.2 11/06/2017 [facility] Monocytes 7.5 % 2.0 - 12.0 11/06/2017 [facility] Basophils 0.6 % 0.0 - 1.0 11/06/2017 [facility] Eosinophils 0.3 % 0.0 - 4.0 11/06/2017 [facility] Segs 63.2 % 45.0 - 75.0 11/06/2017 [facility] Lymphocytes 28.4 % 20.0 - 40.0 11/06/2017 [facility] Platelet 317 K/CMM 133 - 450 11/06/2017 [facility] MPV 7.5 fL 7.4 - 10.4 11/06/2017 [facility] RDW 14.7 % 11.5 - 14.5 11/06/2017 [facility] MCHC 33.7 g/dL 32.0 - 36.0 11/06/2017 [facility] WBC 11.1 K/CMM 3.7 - 10.4 11/06/2017 [facility] Hct 43.6 % 42.0 - 54.0 11/06/2017 [facility] MCV 90.4 fL 80.0 - 94.0 11/06/2017 [facility] MCH 30.4 pg 27.0 - 31.0 11/06/2017 [facility] Hgb 14.7 g/dL 14.0 - 18.0 11/06/2017 [facility] RBC 4.82 M/CMM 4.70 - 6.10 11/06/2017 [facility] CARDIAC ENZYMES Troponin-I 0.04 ng/mL 0.00 - 0.40 11/05/2017 [facility] CARDIAC ENZYMES Troponin-I 0.09 ng/mL 0.00 - 0.40 11/05/2017 [facility] Ext Lower Venous Doppler Bilat US Ext [...] the right or left lower extremity. SL: [id number] 11/05/2017 - - Read by: Roger Villela MD Dictated Date/time: 11/05/17 11:57 Electronically Signed by: Roger Villela MD 11/05/17 11:57 FINAL REPORT [facility] CARDIAC ENZYMES Troponin-I 0.12 ng/mL 0.00 - 0.40 11/05/2017 [facility] DRUG SCREEN U Amph Scr Negative *NA* (11/05/17 4:52 AM) Negative 11/05/2017 [facility] DRUG SCREEN U Cannab Scr Negative *NA* (11/05/17 4:52 AM) Negative 11/05/2017 [facility] DRUG SCREEN U Cocaine Scr Negative *NA* (11/05/17 4:52 AM) Negative 11/05/2017 [facility] DRUG SCREEN U Opiate Scr Negative *NA* (11/05/17 4:52 AM) Negative 11/05/2017 [facility] DRUG SCREEN U Benzodia Scr Negative *NA* (11/05/17 4:52 AM) Negative 11/05/2017 [facility] DRUG SCREEN U Elizabeth Scr Negative *NA* (11/05/17 4:52 AM) Negative 11/05/2017 [facility] DRUG SCREEN UDS Note See Note *NA* (11/05/17 4:52 AM) 11/05/2017 [facility] DRUG SCREEN U Phencyc Scr Negative *NA* (11/05/17 4:52 AM) Negative 11/05/2017 [facility] URINE AND STOOL UA Mucus Few /LPF None Seen /LPF 11/05/2017 [facility] URINE AND STOOL UA WBC 2 /HPF 0 - 5 11/05/2017 [facility] URINE AND STOOL UA Leuk Est Negative (11/05/17 4:52 AM) Negative 11/05/2017 [facility] URINE AND STOOL UA Sq Epi Occasional /LPF Few /LPF 11/05/2017 [facility] URINE AND STOOL UA Blood Negative (11/05/17 4:52 AM) Negative 11/05/2017 [facility] URINE AND STOOL UA RBC 4 /HPF 0 - 2 11/05/2017 [facility] URINE AND STOOL UA Bili Negative *NA* (11/05/17 4:52 AM) Negative 11/05/2017 [facility] URINE AND STOOL UA Urobilinogen 4.0 mg/dL 0.1 - 1.0 11/05/2017 [facility] URINE AND STOOL UA Ketones Negative mg/dL Negative mg/dL 11/05/2017 [facility] URINE AND STOOL UA Nitrite Negative (11/05/17 4:52 AM) Negative 11/05/2017 [facility] URINE AND STOOL UA Protein 100 mg/dL Negative mg/dL 11/05/2017 [facility] URINE AND STOOL UA pH 5.0 5.0 - 8.0 11/05/2017 [facility] URINE AND STOOL UA Spec Grav 1.038 <=1.030 11/05/2017 [facility] URINE AND STOOL UA Turbidity Clear (11/05/17 4:52 AM) Clear 11/05/2017 [facility] URINE AND STOOL UA Glucose Negative mg/dL Negative mg/dL 11/05/2017 [facility] URINE AND STOOL UA Color Yellow *NA* (11/05/17 4:52 AM) Yellow 11/05/2017 [facility] CHEM PANEL Lactic Acid Lvl 1.7 mMol/L 0.5 - 2.2 11/05/2017 [facility] CARDIAC ENZYMES CK MB Index 1.1 0.0 - 2.5 11/05/2017 [facility] CARDIAC ENZYMES CK MB 7.4 ng/mL 0.5 - 3.6 11/05/2017 [facility] CARDIAC ENZYMES Total CK 666 unit/L 12 - 191 11/05/2017 [facility] CARDIAC ENZYMES proBNP 204 pg/mL 0 - 125 11/05/2017 [facility] CHEM PANEL A/G Ratio 0.8 0.7 - 1.6 11/05/2017 [facility] CHEM PANEL Alk Phos 78 unit/L 39 - 136 11/05/2017 [facility] CHEM PANEL AST 30 unit/L 0 - 37 11/05/2017 [facility] CHEM PANEL Total Protein 8.6 g/dL 6.4 - 8.4 11/05/2017 [facility] CHEM PANEL ALT 35 unit/L 0 - 65 11/05/2017 [facility] CHEM PANEL Albumin Lvl 3.7 g/dL 3.5 - 5.0 11/05/2017 [facility] CHEM PANEL Bili Total 0.4 mg/dL 0.2 - 1.3 11/05/2017 [facility] CHEM PANEL B/C Ratio 17 6 - 25 11/05/2017 [facility] CHEM PANEL Globulin 4.9 g/dL 2.7 - 4.2 11/05/2017 [facility] CHEM PANEL Lipase Lvl 197 unit/L 73 - 393 11/05/2017 [facility] HEMATOLOGY Lymphocytes 45.2 % 20.0 - 40.0 11/05/2017 [facility] HEMATOLOGY Segs 45.2 % 45.0 - 75.0 11/05/2017 [facility] HEMATOLOGY Eosinophils 1.9 % 0.0 - 4.0 11/05/2017 [facility] HEMATOLOGY Monocytes 7.1 % 2.0 - 12.0 11/05/2017 [facility] HEMATOLOGY Segs-Bands # 3.4 K/CMM 1.5 - 8.1 11/05/2017 [facility] HEMATOLOGY Basophils 0.6 % 0.0 - 1.0 11/05/2017 [facility] HEMATOLOGY Lymphocytes # 3.4 K/CMM 1.0 - 5.5 11/05/2017 [facility] HEMATOLOGY Monocytes # 0.5 K/CMM 0.0 - 0.8 11/05/2017 [facility] HEMATOLOGY Eosinophils # 0.1 K/CMM 0.0 - 0.5 11/05/2017 [facility] HEMATOLOGY MPV 7.6 fL 7.4 - 10.4 11/05/2017 [facility] RBC 5.19 M/CMM 4.70 - 6.10 11/05/2017 [facility] WBC 7.5 K/CMM 3.7 - 10.4 11/05/2017 [facility] Hgb 15.9 g/dL 14.0 - 18.0 11/05/2017 [facility] MCV 89.6 fL 80.0 - 94.0 11/05/2017 [facility] Hct 46.6 % 42.0 - 54.0 11/05/2017 [facility] RDW 14.7 % 11.5 - 14.5 11/05/2017 [facility] MCHC 34.2 g/dL 32.0 - 36.0 11/05/2017 [facility] MCH 30.6 pg 27.0 - 31.0 11/05/2017 [facility] Platelet 298 K/CMM 133 - 450 11/05/2017 [facility] PTT 28.1 s 22.9 - 35.8 11/05/2017 [facility] INR 0.97 0.85 - 1.17 11/05/2017 [facility] PT 12.9 s 12.0 - 14.7 11/05/2017 [facility] Chest CTA Chest CTA CT THORAX: PE [...] material was used for the exam. Dose: NCM=641 mGy-cm FINDINGS: PULMONARY EMBOLISM: Extensive respiratory motion [...] adrenal imaging can be obtained if warranted. CRESENCIO: ABDI 11/05/2017 - - Read by: Sharmin Harris MD Dictated Date/time: 11/05/17 04:56 Electronically Signed by: Sharmin Harris MD 11/05/17 05:27 FINAL REPORT [facility] Chest 1view DX Chest 1view DX Clinical Indication: Chest pain and dyspnea. Comparison: 01/19/2006. Technique: Single frontal view of the chest. Findings: The lungs are clear. There are no pleural effusions. The cardiac silhouette is normal in size. IMPRESSION: No acute disease. CRESENCIO: NLLLOYD 11/05/2017 - - Read by: Ty Francisco MD Dictated Date/time: 11/05/17 04:11 Electronically Signed by: Ty Francisco MD 11/05/17 04:12 FINAL REPORT [facility] Vital Signs Vital Sign Value Date Comments Source Systolic (mm Hg) 106 02/03/2018 [facility] Diastolic (mm Hg) 71 02/03/2018 [facility] Temperature Oral (F) 97.7 F 02/03/2018 [facility] Respitory Rate 18 02/03/2018 [facility] Heart Rate 85 02/03/2018 [facility] Heart Rate 69 02/03/2018 [facility] Temperature Oral (F) 98.5 F 02/03/2018 [facility] Respitory Rate 18 02/03/2018 [facility] Systolic (mm Hg) 86 02/03/2018 [facility] Diastolic (mm Hg) 52 02/03/2018 [facility] Respitory Rate 82 02/03/2018 [facility] Temperature Oral (F) 98.0 F 02/03/2018 [facility] Heart Rate 67 02/03/2018 [facility] Systolic (mm Hg) 125 02/03/2018 [facility] Diastolic (mm Hg) 75 02/03/2018 [facility] Weight 133.182 02/03/2018 [facility] Weight 131 02/01/2018 [facility] BMI Calculated 40.28 02/01/2018 [facility] Height 180.34 cm 02/01/2018 [facility] BMI Calculated 40.28 02/01/2018 [facility] Height 180.34 cm 02/01/2018 [facility] Weight 131 02/01/2018 [facility] BMI Calculated 30.19 01/31/2018 [facility] Height 180.34 cm 01/31/2018 [facility] Respitory Rate 18 01/09/2018 [facility] Heart Rate 78 01/09/2018 [facility] Systolic (mm Hg) 133 01/09/2018 [facility] Diastolic (mm Hg) 83 01/09/2018 [facility] Temperature Oral (F) 98.4 F 01/09/2018 [facility] Temperature Oral (F) 98.1 F 01/09/2018 [facility] Heart Rate 75 01/09/2018 [facility] Respitory Rate 18 01/09/2018 [facility] [facility] Systolic (mm Hg) 139 01/09/2018 [facility] Diastolic (mm Hg) 96 01/09/2018 [facility] Respitory Rate 16 01/09/2018 [facility] Temperature Oral (F) 97.8 F 01/09/2018 [facility] Systolic (mm Hg) 139 01/09/2018 [facility] Diastolic (mm Hg) 87 01/09/2018 [facility] Heart Rate 76 01/09/2018 [facility] BMI Calculated 43.76 01/06/2018 [facility] Weight 134.4 01/06/2018 [facility] Height 175.26 cm 01/06/2018 [facility] Height 180.34 cm 01/06/2018 [facility] BMI Calculated 41.2 01/06/2018 [facility] Weight 134 01/06/2018 [facility] Temperature Oral (F) 98.2 F 12/04/2017 [facility] Heart Rate 86 12/04/2017 [facility] Respitory Rate 18 12/04/2017 [facility] Systolic (mm Hg) 134 12/04/2017 [facility] Diastolic (mm Hg) 84 12/04/2017 [facility] Respitory Rate 18 12/04/2017 [facility] Systolic (mm Hg) 119 12/04/2017 [facility] Diastolic (mm Hg) 74 12/04/2017 [facility] Temperature Oral (F) 98.1 F 12/04/2017 [facility] Heart Rate 79 12/04/2017 [facility] Respitory Rate 18 12/04/2017 [facility] Temperature Oral (F) 98.4 F 12/04/2017 [facility] Systolic (mm Hg) 121 12/04/2017 [facility] Diastolic (mm Hg) 85 12/04/2017 [facility] Heart Rate 79 12/04/2017 [facility] Weight 142.591 12/03/2017 [facility] Height 180.34 cm 12/01/2017 [facility] Weight 133.8 12/01/2017 [facility] BMI Calculated 41.14 12/01/2017 [facility] Height 180.34 cm 12/01/2017 [facility] BMI Calculated 39.13 12/01/2017 [facility] Weight 127.273 12/01/2017 [facility] Systolic (mm Hg) 144 11/08/2017 [facility] Diastolic (mm Hg) 97 11/08/2017 [facility] Respitory Rate 19 11/08/2017 [facility] Heart Rate 82 11/08/2017 [facility] Temperature Oral (F) 98.5 F 11/08/2017 [facility] Respitory Rate 17 11/08/2017 [facility] Systolic (mm Hg) 145 11/08/2017 [facility] Diastolic (mm Hg) 94 11/08/2017 [facility] Heart Rate 82 11/08/2017 [facility] Respitory Rate 16 11/08/2017 [facility] Temperature Oral (F) 97.9 F 11/08/2017 [facility] Systolic (mm Hg) 125 11/08/2017 [facility] Diastolic (mm Hg) 84 11/08/2017 [facility] Temperature Oral (F) 98.1 F 11/08/2017 [facility] Heart Rate 76 11/08/2017 [facility] Weight 119.545 11/05/2017 [facility] BMI Calculated 36.76 11/05/2017 [facility] Height 180.34 cm 11/05/2017 [facility] Encounters Location Location Details Encounter Type Encounter Number Reason For Visit Attending Provider ADM Date DC Date Status Source [facility] Inpatient [id number] Ramos Atwoodhector 11/05/2017 11/08/2017 [facility] Inpatient [id number] Sunny Cabrera 12/01/2017 12/04/2017 [facility] Inpatient [id number] Sunny Cabrera 01/06/2018 01/09/2018 [facility] Inpatient [id number] Jonathan Warren 01/31/2018 02/04/2018 [facility] Procedures Procedure Code Date Perfomer Comments Source Ankle joint operations [id number] [facility] Knee joint operation [id number] [facility]
[2018-09-10] MEDS ORDERED: HYDRALAZINE HCL 20 MG/ML VIAL IV NR ×2 (16:00→17:45)
[2018-09-10 16:26] LABS: BASOPHILS % 0.3 % (0.0-1.0); EOSINOPHILS # (AUTO) 0.1 (0.0-0.4); EOSINOPHILS % 0.7 % (0.0-6.0); HEMATOCRIT 48.1 % (38.2-49.6); HEMOGLOBIN 15.2 g/dL (14.0-18.0); LYMPHOCYTES # (AUTO) 2.9 (1.0-3.2); LYMPHOCYTES % 38.5 % (18.0-39.1); MEAN CORPUSCULAR HEMOGLOBIN 28.7 pg (28-32); MEAN CORPUSCULAR HGB CONC 31.6 g/dL (31-35); MEAN CORPUSCULAR VOLUME 90.8 fL (81-99); MONOCYTES # (AUTO) 0.6 (0.2-0.8); MONOCYTES % 7.7 % (4.4-11.3); NEUTROPHILS % 52.5 % (38.7-80.0); PLATELET COUNT 295 x10e3/uL (140-360); RED CELL DISTRIBUTION WIDTH 14.3 % (11.7-14.4)
[2018-09-10 16:39] LABS: INR 0.89; PROTHROMBIN TIME 12.9 seconds (11.9-14.5)
[2018-09-10 16:40] LABS: PARTIAL THROMBOPLASTIN TIME 26.4 seconds (23.8-35.5)
[2018-09-10 16:54] LABS: ALANINE AMINOTRANSFERASE 18 IU/L (0-55); ALBUMIN 3.9 g/dL (3.5-5.0); ALBUMIN/GLOBULIN RATIO 1.1 (0.8-2.0); ALKALINE PHOSPHATASE 78 IU/L (40-150); ANION GAP 16.1 mmol/L (8-16); BLOOD UREA NITROGEN 15 mg/dL (7-26); BUN/CREATININE RATIO 14 (6-25); CALCIUM 9.7 mg/dL (8.4-10.2); CARBON DIOXIDE 28 mmol/L (22-29); CHLORIDE 93 mmol/L (98-107); CREATINE KINASE 118 IU/L (30-200); CREATININE, SERUM 1.06 mg/dL (0.72-1.25); EST GLOMERULAR FILTRATION RATE > 60 ML/MIN (60-); GLUCOSE 238 mg/dL (74-118); POTASSIUM 4.1 mmol/L (3.5-5.1); SODIUM 133 mmol/L (136-145)
--- NOTE | 2018-09-10 17:01 | Diagnostic Imaging Report ---
EXAMINATION: CHEST SINGLE (PORTABLE) INDICATION: Shortness of breath. Chest pain ^shortness of breath, chest pain ^Y COMPARISON: September 01, 2018 FINDINGS: TUBES and LINES: None. LUNGS: Lungs are well inflated. Likely minimal atelectasis/scarring in the left midlung. There is no evidence of pneumonia or pulmonary edema. PLEURA: No pleural effusion or pneumothorax. HEART AND MEDIASTINUM: The cardiomediastinal silhouette is unremarkable. BONES AND SOFT TISSUES: No acute osseous lesion. Soft tissues are unremarkable. UPPER ABDOMEN: No free air under the diaphragm. IMPRESSION: No acute thoracic abnormality. Signed by: Dr. Omar Bermeo M.D. on 09/10/2018 4:58 PM
[2018-09-10] MEDS ORDERED: ONDANSETRON HCL INJ 2MG/ML 2ML 2 MG/ML VIAL IV NR (18:00)
[2018-09-10] MEDS ORDERED: MORPHINE SULFATE INJ 4 MG/ML INJ 1ML IV NR (18:00)
--- NOTE | 2018-09-10 18:50 | NUR ---
ENDORSED TO NIGHT NURSE SABINO CANO
--- NOTE | 2018-09-10 19:50 | Diagnostic Imaging Report ---
EXAM: CTA Chest and abdomen WITH contrast 09/10/2018 7:10 PM INDICATION: Shortness of breath. Chest pain. Dissection. History of hypertension, diabetes, CHF. Cardiomyopathy. Acute systolic congestive heart failure. COMPARISON: None TECHNIQUE: Chest and abdomen was scanned utilizing a multidetector helical scanner after administration of IV contrast. Coronal and sagittal reformations were obtained. CTA protocol was performed. Three-D reformatted images were obtained of the aorta. IV CONTRAST: 100 mL of Isovue-370 RADIATION DOSE: Total DLP: 1441.78 mGy*cm Estimated effective dose: (DLP x 0.014 x size factor) mSv All CT scans are performed using radiation dose reduction techniques. Technical factors are evaluated and adjusted to ensure appropriate moderation of exposure. Automated dose management technology is applied to adjust the radiation dose to minimize exposure while achieving a diagnostic-quality image. COMPLICATIONS: None FINDINGS: LINES/ TUBES: None. LUNGS AND AIRWAYS: Minimal scarring/atelectasis in the lungs. Airways are normal. PLEURA: The pleural spaces are clear. HEART AND MEDIASTINUM: The thyroid gland is normal. No mediastinal, hilar or axillary lymphadenopathy. The heart is normal in size. There is no pericardial effusion. Mild scattered atherosclerotic calcification in the aorta and branch vessels. No aorta aneurysm or dissection. HEPATOBILIARY: No focal hepatic lesions. No biliary ductal dilation. GALLBLADDER: No radio-opaque stones or sludge. No wall thickening. SPLEEN: No splenomegaly. PANCREAS: No focal masses or ductal dilatation. ADRENALS: No adrenal nodules KIDNEYS/URETERS: Kidneys enhance symmetrically. No hydronephrosis. Likely simple cysts in the kidneys. No stones. GI TRACT: No abnormal distention, wall thickening, or evidence of bowel obstruction. LYMPH NODES: No lymphadenopathy. VESSELS: Otherwise unremarkable. PERITONEUM / RETROPERITONEUM: No free air or fluid. BONES: Scattered degenerative change. Large anterior thoracic and lumbar vertebral body osteophytes. SOFT TISSUES: Unremarkable. IMPRESSION: 1. Mild scattered atherosclerotic calcification in the aorta and branch vessels. No aorta aneurysm or dissection Signed by: Dr. Omar Bermeo M.D. on 09/10/2018 7:47 PM
[2018-09-10] MEDS ORDERED: KETOROLAC TROMETHAMINE 30 MG/ML VIAL IV NR (20:30)
[2018-09-10] MEDS ORDERED: ZOLPIDEM TARTRATE 5 MG TAB PO PRN (22:00)
[2018-09-10] MEDS ORDERED: DEXTROSE 50% SYRINGE 50 ML IV PRN (22:00)
[2018-09-10] MEDS: PREDNISONE 20 MG TAB PO SCH (22:26)
[2018-09-10] MEDS ORDERED: IOPAMIDOL 370 MG/ML 200 ML INFUS..BTL INJ ONE (22:37)
[2018-09-10] MEDS ORDERED: SODIUM CHLORIDE 0.9% 50ML 50 ML ONE (22:37)
[2018-09-10 22:55] VITALS: BP 167/90
--- NOTE | 2018-09-10 23:01 | Consultation ---
DATE OF CONSULTATION: September 10, 2018 PULMONARY MEDICINE CONSULT REFERRING PHYSICIAN: Dr. Sapp. REASON FOR REFERRAL: Hypoxemia. HISTORY: Mr. Mcqueen is a pleasant 52-year-old gentleman with hypoxemia. The patient presented to [facility] with chest tightness. The patient had recent hospitalization with atypical chest tightness and treated for asthma, mild, at that time. The patient now has chest tightness once again. The patient denies any specific reasons for worsening. No trauma to chest. The patient denies any associated diaphoresis. The patient with chest tightness that came first and then he had a little bit of shortness of breath, but the chest tightness was definitely the worst component. The patient had multiple testing done in the emergency room when he arrived. Chest x-ray with no acute abnormality. Angiography performed demonstrated mild scarring and atelectasis in the lung on CTA of the chest. CTA of the abdomen once again was mostly unremarkable. When he sleeps, he notices oxygen saturation goes into the 80s percentile range. I am consulted. PAST MEDICAL HISTORY: Hypertension, diabetes, asthma probably nonallergic, knee and ankle surgery, obesity. MEDICATIONS: Medication list reviewed, per electronic record. Recently he is on prednisone 40 mg a day for a few more days. He is on ProAir and Trelegy inhalers. He is on oxygen and BiPAP for sleep. Other medicines per records. ALLERGIES: LISINOPRIL. SOCIAL HISTORY: No drinking. No drugs. Lifetime nonsmoker. Fiancee is present at bedside. FAMILY HISTORY: Noncontributory to this condition. REVIEW OF SYSTEMS GENERAL: No weight loss. HEENT: No loose teeth. ENDOCRINE: No thyroid disorder. PULMONARY: No chest or lung trauma. CARDIAC: No recent heart attacks. : No kidney stones. GI: No constipation. NEUROLOGIC: No loss of consciousness. MUSCULOSKELETAL: Mild arthritis. DERMATOLOGIC: No venostasis changes. PHYSICAL EXAMINATION VITAL SIGNS: Noted, reviewed per electronic record. GENERAL: No acute distress, alert and calm. He is saturating in the 90s percentile range when awake. HEENT: Normocephalic, atraumatic. NECK: Supple. Throat midline. LUNGS: Bilateral air entry, mostly clear. CARDIOVASCULAR: S1, S2. No murmurs, rubs, or gallops. ABDOMEN: Soft, nontender. EXTREMITIES: No clubbing, no cyanosis. There is only trace leg edema. INTEGUMENT: No rash, no purpura. LABS: Previous IgE level was 6. Rheumatoid factor negative. JAZMIN negative. Complements were preserved. Sodium 133, potassium 4.1, BUN 15, creatinine 1.1. LFTs normal. Albumin is 3.9. BNP is 78. White count 8, hematocrit 48, platelets 295,000. IMPRESSION 1. Hypoxemia, noted during sleep mostly. Hypoventilation component assessed and suggested likely based on inspiratory maneuvers. 2. History of asthma, possible exacerbation. 3. Obesity. 4. Obstructive sleep apnea. 5. Hypoxemia. 6. Possible pulmonary hypertension, 39 mm pulmonary artery trunk. 7. Hypertension. 8. Diabetes. 9. Atypical chest pain. PLAN: At this time, continue to treat him for chest pain per keyboard operator and other specialists. Continue bronchodilators. Give him some NSAIDs for possibly musculoskeletal pain. The patient will still need aggressive pulmonary rehab after he gets out. If he goes for left heart catheterization, we recommend to perform right heart catheterization the same time. Needs outpatient PFTs. Will follow along closely. Thank you very much, Dr. Sapp, for allowing me the chance to participate in the care of Mr. Mcqueen. Do not hesitate to contact me if I could help in any way. Job#: [id number] JOHN
[2018-09-10 23:23] VITALS: BP 147/102
[2018-09-11] VITALS (8 sets, daily range): BP systolic 136–203; BP diastolic 65–103
[2018-09-11 06:04] LABS: CHOL/HDL RATIO 4.1 (3.9-4.7)
[2018-09-11] MEDS: ALBUTEROL/IPRATROPIUM 3 ML NEB NEB SCH ×3 (06:45→19:30)
[2018-09-11] MEDS: INSULIN REGULAR, HUMAN 100 UNIT/1 ML 3ML VIAL SQ SCH ×4 (07:30→21:48)
--- NOTE | 2018-09-11 07:32 | NUR ---
Rechecked BP manually after patient rested quietly in bed, its 180/80, will give scheduled BP medication and will recheck BP, Patient not in any distress, keep monitoring
[2018-09-11] MEDS: FUROSEMIDE 40 MG TAB PO SCH ×2 (07:34→16:58)
[2018-09-11] MEDS: HYDRALAZINE HCL 25 MG TAB PO SCH ×3 (07:34→21:56)
[2018-09-11] MEDS: CARVEDILOL 12.5 MG TAB PO SCH ×2 (07:34→16:58)
[2018-09-11] MEDS: NIFEDIPINE CR 30 MG TAB PO SCH ×2 (07:35→16:58)
[2018-09-11] MEDS: PREDNISONE 20 MG TAB PO SCH (08:38)
[2018-09-11] MEDS: METFORMIN HCL 500 MG TAB PO SCH ×2 (08:38→16:58)
[2018-09-11] MEDS: LORATADINE 10 MG TAB PO SCH (08:38)
--- NOTE | 2018-09-11 08:58 | NUR ---
SOCIAL WORK INITIAL ASSESSMENT Rock Wool Insulator to bedside to discuss plan of care with patient/family. CM/SW role and care transitions discussed. Anticipated discharge plan discussed along with duration of care. CM/SW discussed patients right to make decisions in care. CM/SW work hours given. Patient lives: IN APARTMENT WITH GIRLFRIEND Admit/Transfer: VIA ED FROM HOME POA/Emergency contact: RJ [phone] Current/Previous Home Health: NONE PCP/Follow-up Care: ARANA Current/Previous DME: NONE-DENIED [employer] LAST VISIT AND REFUSED [employer] Other Services: NONE Employment Status: DISABLED Areas of Concerns: NONE Referral Needs: NONE Education Needs: NONE IMM/CHILD given and signed (if applicable): NA Goal for discharge: RETURN BACK TO APARTMENT WITH GIRLFRIEND CM/SW left business card at the bedside with contact information. Name and number was also written on the patients whiteboard. Patient verbalized understanding of discussion. CM will follow-up with ongoing discharge and transition of care needs.
[2018-09-11] MEDS ORDERED: ACETAMINOPHEN 325 MG TAB PO PRN (11:00)
--- NOTE | 2018-09-11 12:09 | Consultation ---
DATE OF CONSULTATION: September 11, 2018 REASON FOR CONSULTATION: Hypoxemia and chest pain. HISTORY: This is one of several admissions this 52-year-old gentleman who got a diagnosis of nonischemic cardiomyopathy. Patient in November 2017 had a cardiac catheterization done at [facility]. We got a copy of the report and it is with the patient, which showed normal coronaries. Furthermore, it showed end-diastolic volume at 36. The ejection fraction was in the 40s. Patient labeled as nonischemic cardiomyopathy. In fact, we have copy of that report, which patient carries with him and it was done in November 07, 2017. Regardless, patient had several admissions with uncontrolled hypertension, shortness of breath. He uses BiPAP. He is obese and his blood pressure is out of control. In fact, he was here recently. He was dismissed home after we got the report of that cardiac catheterization. The patient is maintained on medical therapy. He claims to be compliant. He used BiPAP. Patient came to the emergency room again with shortness of breath. The shortness of breath is severe. Apparently the shortness of breath going for 4 days. Subsequently he started developing chest pain because "I am coughing and breathing hard." The chest pain is located to the diaphragmatic area in the lower chest. "I cannot take deep breaths because of that." A stat CTA angiogram of the chest done showed no pulmonary embolism. Furthermore, it also involved the abdomen and it showed both kidneys are getting good dye flush at the same time. In summary, both CTA angiogram of the chest and abdomen were unremarkable. Then, patient noted by ER team. Patient's saturation is very low in his 80s. At that time, he decided to admit him to the hospital. Cardiac consultation is obtained. I visited with the patient who is having oxygen. He uses CPAP for his sleep. He is obese. He says without oxygen cannot breathe. Of note, his cardiac enzymes were perfectly normal. Furthermore, his BNP was only 78. His chest x-ray showed no volume overload. His CT scan showed also no evidence of pulmonary edema. Patient admitted for further management for hypoxemia and shortness of breath and the chest pain. Cardiac consultation is obtained. PAST MEDICAL HISTORY 1. Diagnosis of nonischemic cardiomyopathy, several admissions, diagnosed as diastolic heart failure, [id number] exacerbation. 2. Severe hypertension. 3. COPD. 4. Asthma. 5. Diabetes mellitus. 6. Sleep apnea, on CPAP. 7. Obesity. 8. Normal coronary angiogram in November 2017 with presence of report to confirm that. REVIEW OF SYSTEMS GENERAL: Weakness, debility, weight gain. No fever. No chills. HEENT: Congestion and difficulty breathing. PULMONARY: Severe spasm. Cannot breathe and needs to breathe hard. He uses BiPAP. He uses inhaler with no help. CARDIAC: Atypical chest pain. GI: No hematemesis. No melena. : No hematuria. No dysuria. MUSCULOSKELETAL: Aches and pains. HOME MEDICATIONS 1. Coreg 12.5 mg twice a day. 2. Nifedipine 30 mg twice a day. 3. Lipitor 20 mg a day. 4. Hydralazine 25 mg t.i.d. 5. Lasix 40 mg twice a day. ALLERGIES: LISINOPRIL, CAUSING HIM SEVERE COUGH. SOCIAL HISTORY: He is . He is nonsmoker, is [id number]. FAMILY HISTORY: Father at age 53 with gunshot wound. Mother had CVA. Four brothers, at least one diabetic. PHYSICAL EXAMINATION GENERAL: Morbidly obese. VITAL SIGNS: Height of 5 feet 11 inches, weight of 178 pounds. Blood pressure 180/80. Heart rate of 80. Respiratory rate of 18. HEENT: Pupils are reactive. NECK: No elevation of jugular venous pulsation. CHEST: Decreased lung expansion. HEART: PMI 5th left intercostal space. Normal 1st and 2nd heart sounds. ABDOMEN: Soft with good bowel sounds. EXTREMITIES: No edema. No signs of deep venous thrombosis. NEUROLOGIC: As per above. LAB DATA: CT chest and abdomen as described above. Cardiac scan report is reviewed and copy attached to the file. BNP of only 78. Triglycerides of 126, cholesterol 173, HDL 42, LDL of 106. Cardiac enzymes normal. BUN 15, creatinine of 1. CO2 of 28. IMPRESSIONS 1. Hypoxemia, reason for the admission. Addendum ABG's room air PH:7.33/PCO2:66, PO2 44 2. History of asthma and definitely sleep apnea and obesity. 3. History of nonischemic cardiomyopathy with normal coronary and several admissions in the past with shortness of breath attributed to diastolic heart failure. 4. Diabetes mellitus. 5. History of gastric ulcers. 6. Chest pain, totally atypical with normal coronaries, normal computed tomography scan which would indicate is secondary to the respiratory distress and overuse of the muscles and cough. I believe this patient's symptoms are mainly pulmonary. I do not think he came this time with diastolic heart failure as evident by his CT scan findings. No pulmonary edema. His BNP of only being 78 which will rule out any pulmonary edema of any cause. Regardless treatment from a cardiac point of view will be for very, very aggressive blood pressure control. Patient had recent dye load, so precaution needs to be done for his kidney function. Regarding his pain, can be treated with nonsteroidal anti-inflammatory; however, will refrain on doing that because on his account "I have ulcers and it is actually very bad, I cannot take any nonsteroidal." Cardiac almeida, mainstay of treatment will be aggressive medical therapy for high blood pressure control. Will take ABGs. Will try to ask the automotive drivability technician to take it on room air. Will follow patient's progression with you and would like to thank you for your kind referral. Addendum ABG's room air PH:7.33/PCO2:66, PO2 44 Job#: [id number] TA MTDD
[2018-09-11 12:47] LABS: ABG PH 7.34 (7.31-7.41)
[2018-09-11 12:50] LABS: ABG HCO3 36 mmol/L (23-28); ABG PCO2 66 mmHg (41-51); ABG PO2 42 mmHg (80-105)
--- NOTE | 2018-09-11 20:06 | NUR ---
PATIENT C/O PAIN TO THE CHEST WITH PAIN SCORE # 6, HE ONLY HAVE TYLENOL FOR PAIN WHICH WAS ADMINISTERED 2HOURS AGO. CALL AND SPOKE WITH DR ARANA REGARDING THE PATIENT'S PAIN, ORDER RECEIVED TO RESTART ALL OF HIS HOME MEDICATION INCLUDING HIS NORCO.
[2018-09-11] MEDS ORDERED: HYDROCODONE/APAP 5MG-325MG TAB PO PRN (20:15)
[2018-09-11] MEDS ORDERED: LORAZEPAM 0.5 MG TAB PO PRN (20:15)
[2018-09-11] MEDS ORDERED: ALBUTEROL SULFATE HFA 8GM INHALATION AEROSOL INH PRN (20:15)
[2018-09-11] MEDS ORDERED: LORAZEPAM 1 MG TAB PO PRN (20:30)
--- NOTE | 2018-09-11 20:53 | NUR ---
WENT TO ADMINISTER PAIN MEDICATION REQUESTED BY THE PATIENT BUT HE'S SOUNDLY ASLEEP WITH BI-PAP ON. HE OPENS HIS EYE AND QUICKLY GOES BACK TO SLEEP. HE'S ON TELEMETRY WITH SINUS RHYTHM.
[2018-09-11] MEDS ORDERED: ATORVASTATIN 20 MG TAB PO SCH (21:00)
--- NOTE | 2018-09-11 21:34 | NUR ---
PATIENT SEEN AND EXAM BY DR DYER, HE WOKE UP BRIEFLY AND WENT BACK TO SLEEP. NO NEW ORDERS RECEIVED. WILL CONTINUE TO CLOSELY MONITOR THE PATIENT.
--- NOTE | 2018-09-11 22:31 | Progress Note ---
DATE: September 11, 2018 PULMONARY MEDICINE PROGRESS NOTE SUBJECTIVE: Mr. Mcqueen was seen and examined at bedside. He continues to have slow progress. He still has chest pains that are present intermittently. No evelyn change in the shortness of breath, but it is still there. He is on CPAP 12 cm of water pressure, trying to go to sleep on this pressure. REVIEW OF SYSTEMS: No headache, no bleeding. OBJECTIVE VITALS: Afebrile. Vital signs noted per the chart record. GENERAL: No acute distress. Alert and calm. HEENT: Normocephalic and atraumatic. NECK: Supple. Throat midline. LUNGS: Bilateral air entry, few rhonchi heard. CARDIOVASCULAR: S1 and S2. No murmurs, rubs, or gallops. ABDOMEN: Soft, nontender, and obese. EXTREMITIES: No clubbing. No cyanosis. There is only trace edema. INTEGUMENT: No rash. No purpura. LABS: BUN 15, creatinine 1.56. Potassium 4.1. White count 8. IMPRESSIONS 1. Atypical chest pain, under evaluation by sales force developer. 2. History of asthma, unclear if exacerbation present. 3. Obesity, suspected obesity hypoventilation syndrome. 4. Obstructive sleep apnea, on subtherapeutic continuous positive airway pressure level. PLAN: At this time, continue the prednisone 30 mg a day. Continue bronchodilators. Continue asthma medicines. CPAP will be kept at 12 cm of pressure since I do not know his home pressure rate now. I do not want to overdose him and have him in pressure. Consider uptitrating the CPAP later. Continue evaluation per sales force developer. Mobilize him as feasible. Job#: [id number]
[2018-09-12] VITALS: BP 136/79
--- NOTE | 2018-09-12 01:46 | NUR ---
PATIENT IS ASLEEP WITH OXYGEN AT NASAL CANNULA, HE'S EASY TO AROUSE AND HE DENIES SHORTNESS OF BREATH. CALL LIGHT WITHIN EASY REACH, INSTRUCTED TO CALL FOR ASSISTANCE NEEDED.
[2018-09-12 04:00] VITALS: BP 128/62
--- NOTE | 2018-09-12 04:23 | NUR ---
WALKING ROUNDS MADE, PATIENT OBSERVED SLEEPING ON HIS BELLY. HE'S EASY TO AROUSE, HE DENIES PAIN AND SHORTNESS OF BREATH.
--- NOTE | 2018-09-12 07:32 | NUR ---
patient resting in bed, Alert with no distress, on O2 NC 3L, Denies any chest pain or SOB, keep monitoring, call light in reach
[2018-09-12 07:38] VITALS: BP 137/76
[2018-09-12] MEDS: INSULIN REGULAR, HUMAN 100 UNIT/1 ML 3ML VIAL SQ SCH (07:40)
[2018-09-12] MEDS: METFORMIN HCL 500 MG TAB PO SCH (07:48)
[2018-09-12] MEDS: PREDNISONE 20 MG TAB PO SCH (08:06)
[2018-09-12] MEDS: LORATADINE 10 MG TAB PO SCH (08:06)
[2018-09-12] MEDS: CARVEDILOL 12.5 MG TAB PO SCH (08:06)
[2018-09-12] MEDS: FUROSEMIDE 40 MG TAB PO SCH (08:06)
[2018-09-12] MEDS: NIFEDIPINE CR 30 MG TAB PO SCH (08:06)
[2018-09-12] MEDS: HYDRALAZINE HCL 25 MG TAB PO SCH (08:16)
[2018-09-12 09:38] VITALS: BP 137/76
--- NOTE | 2018-09-12 10:57 | NUR ---
CM ROUNDED WITH DR Harriet ARANA AND DR SEN THIS AM PT IS DISCHARGED TODAY WHEN SPLIT NIGHT SLEEP STUDY OP SCHEDULE CM NOTIFIED VENU IN R.T. OF NEED FOR APPT BEFORE PT GOES HOME PT WILL F/U WITH DR DYER FOR BIPAP AFTER SLEEP STUDY COMPLETED PT ALSO STATES HE HAS MCR PART A; CALLED AND LEFT FOR [facility] IN ADMITTING CM NOTIFIED FELIX CANO OF PLANS AND NOT TO LET PT GO UNTIL HE HAS OP SLEEP STUDY APPT
[2018-09-12 11:40] VITALS: BP 142/85
[2018-09-12] MEDS ORDERED: PREDNISONE20 MG PO (11:52)
--- NOTE | 2018-09-12 12:20 | NUR ---
Dr Rivera had rounds, given prescription for prednisone, ,
[2018-09-12 13:00] VITALS: BP 139/89
--- NOTE | 2018-09-12 15:20 | NUR ---
patient discharged home, sleep study appointment has scheduled for 30 sep 2018, patient and his aware about it, prescription given, IV canula removed with tip intact, no ss of infiltration , , Tele box returned, transported via wheelchair to [facility],
--- NOTE | 2018-09-12 23:20 | Progress Note ---
DATE: September 12, 2018 PULMONARY MEDICINE PROGRESS NOTE SUBJECTIVE: Mr. Mcqueen was seen and examined at bedside. He continues to have slow but steady progress. His breathing is better. Chest pain is better. He is a little bit sleepy, CPAP only of 12 cm of pressure last night. REVIEW OF SYSTEMS: No GI bleed. OBJECTIVE: VITAL SIGNS: Afebrile, vital signs noted per electronic record. GENERAL: In no acute distress. HEENT: Normocephalic, atraumatic. NECK: Supple. Throat midline. LUNGS: Bilateral air entry. CARDIOVASCULAR: S1, S2. ABDOMEN: Obese. EXTREMITIES: Trace edema. INTEGUMENT: No rash. IMPRESSION AND PLAN: 1. Atypical chest pain, ruled out for myocardial infarction. Less like acute coronary syndrome. 2. Obstructive sleep apnea. 3. Obesity hypoventilation syndrome. 4. History of nonallergic asthma most likely. Patient continues to be highly recommended for the outpatient BiPAP resumption. He is still high risk for decompensation. He is recommended for sleep studies, to maximize the therapeutic dose that he is getting as he seems somewhat symptomatic after poor night of insufficient CPAP. Patient will continue on steroids. Prevent GERD. Continue to try to lose weight if feasible. Job#: [id number]
== END 2018-09-12 15:10 | disposition home or self-care (01) ==
LOC: ER 15:29 → ERHOLD 22:07 → IMCU 22:55
DX: R07.89 Other chest pain (principal); G47.33 Obstructive sleep apnea (adult) (pediatric); J44.9 Chronic obstructive pulmonary disease, unspecified; I10 Essential (primary) hypertension; E11.9 Type 2 diabetes mellitus without complications; R09.02 Hypoxemia; E66.9 Obesity, unspecified; Z68.38 Body mass index [BMI] 38.0-38.9, adult; J44.1 Chronic obstructive pulmonary disease with (acute) exacerbation; J96.90 Respiratory failure, unspecified, unspecified whether with hypoxia or hypercapnia; Z91.19 Patient's noncompliance with other medical treatment and regimen
CPT/HCPCS: 36415 ×3; 36600; 71045; 71275; 74175; 80053; 80061; 82550; 82553; 82805; 82948 ×2; 83735; 83880; 84484; 85025; 85379; 85610; 85730; 93005; 94640 ×2; 96372; 99284; G0378 ×3; J0360; J1817; J1885; J2270; J2405; J7512 ×3; Q9967

== ENCOUNTER 2018-09-20 13:18 | Inpatient (IN) | payer MEDICARE ==
[~2018-09-20] VITALS: Ht 180.3 cm; Wt 136.1 kg
[2018-09-20] MEDS: ALBUTEROL/IPRATROPIUM 3 ML NEB NEB SCH ×2 (00:10→19:00)
[~2018-09-20 13:18] MED LIST changes: +PREDNISONE20 MG PO
--- OUTSIDE RECORDS SUMMARY | 2018-09-20 13:22 | XMS REPORT | Continuity of Care Document ---
Author Author [facility] Organization Interface Address Unknown Phone Unavailable Problems Problem Status Onset Date Classification Date Reported Comments Source CP, SOB Active 09/08/[address] [facility] ACUTE RESPIRATORY FAILURE WITH HYPOXEMIA Active 09/08/[address] [facility] CHF EXACERBATION, TIA Active 05/30/2018 [facility] CHEST PAIN/SOB/SLURRED SPEACH Active 05/29/[address] [facility] SHORTNESS OF BREATH Active 05/03/[address] [facility] CHEST PAIN, CHOLELITHIASIS Active 05/03/[address] [facility] RESPIRATORY DISTRESS, CHF EXACERBATION Active 03/31/[address] [facility] SOB/CP Active 03/31/[address] [facility] CHEST PAIN, DYSPNEA Active 03/26/[address] [facility] CHEST PAIN/DIFFICULTY BREATHING Active 03/26/[address] [facility] HYPERCAPNIC RESPIRATORY FAILURE Active 01/31/[address] [facility] SHORTNESS OR BREATH, RESPIRATORY ACIDOSI Active 01/05/[address] [facility] SHORTNESS OR BREATH Active 01/05/[address] [facility] CHEST PAIN Active 11/30/[address] [facility] ACUTE EXACERBATION OF CHF,ACUTE RESPIRAT Active 11/30/[address] [facility] Hypertensive heart and chronic kidney disease with heart failure and stage 1 through stage 4 chronic kidney disease, or unspecified chronic kidney disease 11/15/2017 02/14/2018 [facility] ELEVATED TROPONIN, HTN, SOB, RESP FAILUR Active 11/05/[address] [facility] Hypertension Resolved Problem 09/12/2018 [facility] Shortness of breath 02/14/2018 [facility] Acute respiratory failure with hypercapnia 02/14/2018 [facility] Acute respiratory failure with hypoxia 02/14/2018 [facility] Acute kidney failure, unspecified 02/14/2018 [facility] Morbid obesity due to excess calories 02/14/2018 [facility] Cardiomyopathy, unspecified 02/14/2018 [facility] Acute systolic heart failure 02/14/2018 [facility] Body mass index 36.0-36.9, adult 02/14/2018 [facility] Obstructive sleep apnea (pediatric) 02/14/2018 [facility] Chronic kidney disease, unspecified 02/14/2018 [facility] Type II diabetes mellitus poorly controlled Active Problem 09/12/2018 [facility] ABNORMAL LEVELS OF OTHER SERUM ENZYMES Active [facility] ESSENTIAL (PRIMARY) HYPERTENSION Active [facility] SHORTNESS OF BREATH Active [facility] ACUTE RESPIRATORY FAILURE, UNSP W HYPOXI Active [facility] ACIDOSIS Active [facility] HEART FAILURE, UNSPECIFIED Active [facility] [place] RESPIRATORY FAILURE, UNSPECIFIED WITH HY Active [facility] CHEST PAIN, UNSPECIFIED Active [facility] DYSPNEA, UNSPECIFIED Active [facility] CALCULUS OF GALLBLADDER W/O CHOLECYSTITI Active [facility] TRANSIENT CEREBRAL ISCHEMIC ATTACK, UNSP Active [facility] ACUTE RESPIRATORY FAILURE WITH HYPOXIA Active [facility] Medications Medication Details Route Status Patient Instructions Ordering Provider Order Date Source metoprolol extended release 25 mg, Route: PO, Drug form: ERTAB, Daily, Start date: 09/10/18 9:00:00 [employer], Duration: 30 day, Stop date: 10/09/18 9:00:00 [employer]ELOPER No Longer Active 09/10/2018 [facility] Aspirin 81 MG Chewable Tablet 81 mg, Route: PO, Drug form: CHEWTAB, Daily, Dosing Weight 133.3, kg, Start date: 09/10/18 9:00:00 [employer], Duration: 30 day, Stop date: 10/09/18 9:00:00 [employer]ELOPER No Longer Active 09/10/2018 [facility] atorvastatin 20 mg, 2 tab, Route: PO, Drug form: TAB, Bedtime, Dosing Weight 133.3, kg, Start date: 09/09/18 21:00:00 [employer]ELOPER, Duration: 30 day, Stop date: 10/08/18 21:00:00 CSTNotes: (Same As: Lipitor) Inactive 09/10/2018 [facility] Lasix 40 mg, Route: IVP, Drug form: INJ, BID Diuretic, Dosing Weight 133.3, kg, Start date: 09/09/18 16:00:00 [employer], Duration: 30 day, Stop date: 10/09/18 8:00:00 [employer]ELOPER Inactive 09/09/2018 [facility] Sodium Chloride 0.9% IV 1,000 mL 1,000 mL, Rate: 75 ml/hr, Infuse over: 13.3 hr, Route: IV, Dosing Weight 133.3 kg, Total Volume: 1,000, Start date: 09/09/18 9:20:00 [employer]ELOPER, Duration: 30 day, Stop date: 10/09/18 9:19:00 [employer]ELOPER, 2.62, m2 Inactive 09/09/2018 [facility] carvedilol 12.5 mg, 1 tab, Route: PO, Drug form: TAB, Q12H, Dosing Weight 133.3, kg, Start date: 09/09/18 9:00:00 [employer]ELOPER, Duration: 30 day, Stop date: 10/08/18 21:00:00 CSTNotes: Give with food. (Same As: Coreg) Inactive 09/09/2018 [facility] Aspirin 81 MG Enteric Coated Tablet 81 mg, 1 tab, Route: PO, Drug form: ECTAB, Daily, Dosing Weight 133.3, kg, Start date: 09/09/18 9:00:00 [employer]ELOPER, Duration: 30 day, Stop date: 10/08/18 9:00:00 CSTNotes: Do not crush or chew. (Same As: Ecotrin) Inactive 09/09/2018 [facility] Furosemide 40 MG Oral Tablet [Lasix] 40 mg, 1 tab, Route: PO, Drug form: TAB, BID Diuretic, Dosing Weight 133.3, kg, Start date: 09/09/18 8:00:00 [employer], Duration: 30 day, Stop date: 10/08/18 16:00:00 CSTNotes: (Same as: Lasix) May cause GI upset. Give with food or milk. Inactive 09/09/2018 [facility] Lasix 40 mg, Route: IVP, Drug form: INJ, BID Diuretic, Dosing Weight 125.455, kg, Start date: 09/09/18 8:00:00 [employer]ELOPER, Duration: 30 day, Stop date: 10/08/18 16:00:00 [employer]ELOPER No Longer Active 09/09/2018 [facility] heparin 5,000 unit, 1 mL, Route: SUB-Q, Drug form: INJ, Q8H, Dosing Weight 125.455, kg, Start date: 09/09/18 0:00:00 [employer], Duration: 30 day, Stop date: 10/08/18 16:00:00 CSTNotes: porcine heparin Inactive 09/09/2018 [facility] Lorazepam 1 MG Oral Tablet [Ativan] 1 mg=1 tab, PO, Q4H, PRN Anxiaty, 0 Refill(s) On Hold 09/09/2018 [facility] Pepcid 20 mg, 1 tab, Route: PO, Drug form: TAB, BID, Dosing Weight 125.455, kg, Start date: 09/08/18 17:00:00 [employer], Duration: 30 day, Stop date: 10/08/18 9:00:00 CSTNotes: (Same as: Pepcid) No Longer Active 09/08/2018 [facility] Budesonide 0.25 MG/ML Inhalant Solution 0.5 mg, 2 mL, Route: NEB, Drug form: SUSP, BID, Dosing Weight 125.455, kg, Start date: 09/08/18 17:00:00 [employer], Duration: 30 day, Stop date: 10/08/18 9:00:00 [employer] DEVELOPER, Notes: (Same As: Pulmicort) No Longer Active 09/08/2018 [facility] Morphine 2 mg, 0.5 mL, Route: IVP, Drug form: SOLN, Q4H, Dosing Weight 125.455, kg, PRN Pain Score 7-10, Start date: 09/08/18 16:05:00 [employer]ELOPER, Duration: 30 day, Stop date: 10/08/18 16:04:00 CSTNotes: (Same as:MORPhine Sulfate) No Longer Active 09/08/2018 [facility] Albuterol 0.833 MG/ML / Ipratropium Bonner 0.167 MG/ML Inhalant Solution 3 mL, Route: NEB, Drug Form: SOLN, Dosing Weight 125.455, kg, Q4H, Start date: 09/08/18 16:00:00 [employer]ELOPER, Duration: 30 day, Stop date: 10/08/18 12:00:00 CSTNotes: (Same as: Duoneb) No Longer Active 09/08/2018 [facility] methylPREDNISolone SODium SUCCinate 40 mg, 1 mL, Route: IVP, Drug form: INJ, Q8H, Dosing Weight 125.455, kg, Start date: 09/08/18 16:00:00 [employer]ELOPER, Duration: 5 day, Stop date: 09/13/18 8:00:00 CSTNotes: (Same as:Solu-MEDROL, A-Methapred) Inactive 09/08/2018 [facility] Dextrose 50% Syringe 25 gm, 50 mL, Route: IVP, Drug Form: INJ, Dosing Weight 125.455, kg, PRN, PRN Blood Glucose Results, Start date: 09/08/18 15:29:00 [employer]ELOPER, Duration: 30 day, Stop date: 10/08/18 15:28:00 [employer] DEVELOPER No Longer Active 09/08/2018 [facility] Glucagon 1 mg, Route: IM, Drug form: PDR/INJ, PRN, Dosing Weight 125.455, kg, PRN Blood Glucose Results, Start date: 09/08/18 15:29:00 [employer]ELOPER, Duration: 30 day, Stop date: 10/08/18 15:28:00 [employer] DEVELOPER No Longer Active 09/08/2018 [facility] Insulin Lispro 2 unit, 0.02 mL, Route: SUB-Q, Drug form: SOLN, TID-Before Meals, Dosing Weight 125.455, kg, PRN Blood Glucose Results, Start date: 09/08/18 15:29:00 [employer]ELOPER, Duration: 30 day, Stop date: 10/08/18 15:28: 00 CSTNotes: (Same as: Humalog ) Roll in palms of hands gently; Do not shake `vigorously. "Single Patient Use Only " WASTE: F/P - Black; E - Municipal Trash Bin Stable for 28 days at room temperature. Expires in days from Date No Longer Active 09/08/2018 [facility] Lasix 80 mg, 8 mL, Route: IVP, Drug form: INJ, ONCE, Dosing Weight 125.455, kg, Priority: STAT, Start date: 09/08/18 14:31:00 [employer]ELOPER, Stop date: 09/08/18 14:31:00 CSTNotes: (Same as: Lasix) MEDICATION WASTE Product Size: 40 mg Product Wasted: ___ mg Inactive 09/08/2018 [facility] Ativan 0.5 mg, Route: IVP, Drug form: INJ, ONCE, Dosing Weight 125.455, kg, Priority: STAT, Start date: 09/08/18 12:50:00 [employer] DEVELOPER, Stop date: 09/08/18 12:50:00 [employer] DEVELOPER Inactive 09/08/2018 [facility] Fentanyl 50 microgram, Route: IVP, ONCE, Dosing Weight 125.455, kg, Priority: STAT, Start date: 09/08/18 9:52:00 [employer]ELOPER, Stop date: 09/08/18 9:52:00 [employer] DEVELOPER Inactive 09/08/2018 [facility] Saline Flush 0.9% 10 mL, Route: IVP, Drug Form: INJ, Dosing Weight 131.182, kg, PRN, PRN Line Flush, Start date: 09/08/18 9:13:00 [employer] DEVELOPER, Duration: 30 day, Stop date: 10/08/18 9:12:00 CSTNotes: preservative free. No Longer Active 09/08/2018 [facility] Albuterol 0.83 MG/ML Inhalant Solution 2.49 mg=3 mL, INHALATION, Q6H, PRN wheezing, coughing, or shortness of breath, # 100 ea, 5 Refill(s), Pharmacy: [id number] Active 02/03/2018 [facility] Furosemide 40 MG Oral Tablet [Lasix] 40 mg=1 tab, PO, BID, # 60 tab, 5 Refill(s), Pharmacy: [id number] Active 02/03/2018 [facility] Metformin hydrochloride 500 MG Oral Tablet 500 mg, 1 tab, Route: PO, Drug form: TAB, BID, Dosing Weight 131, kg, Start date: 02/03/18 9:00:00 CDT, Duration: 30 day, Stop date: 03/04/18 17:00:00 CDTNotes: (Same as: Glucophage) Take with meal Inactive 02/03/2018 [facility] Insulin Lispro 2 unit, 0.02 mL, Route: [...] days from Date No Longer Active 02/03/2018 [facility] Enoxaparin 40 mg, 0.4 mL, Route: SUB-Q, Drug form: INJ, [id number], Dosing Weight 131, kg, Start date: 02/02/18 11:00:00 CDT, Duration: 30 day, Stop date: 03/03/18 23:00:00 CDTNotes: (Same as: Lovenox) No Longer Active 02/02/2018 [facility] Prednisone 20 mg, 1 tab, Route: PO, Drug form: TAB, Daily, Dosing Weight 131, kg, Start date: 02/02/18 9:00:00 CDT, Stop date: 03/03/18 9:00:00 CDTNotes: Take with food. No Longer Active 02/02/2018 [facility] Lasix 40 mg, 4 mL, Route: IVP, Drug form: INJ, BID, Dosing Weight 131, kg, Start date: 02/01/18 11:53:00 CDT, Duration: 30 day, Stop date: 03/03/18 9:00:00 CDTNotes: (Same as: Lasix) MEDICATION WASTE Product Size: 40 mg Product Wasted: ___ mg No Longer Active 02/01/2018 [facility] Acetaminophen 325 MG / Hydrocodone Bitartrate 10 MG Oral Tablet [Mohawk 10/325] 1 tab, Route: PO, Drug Form: TAB, Dosing Weight 98.182, kg, Q6H, PRN Pain Score 4-6, Start date: 02/01/18 11:40:00 CDT, Duration: 30 day, Stop date: 03/03/18 11:39:00 CDTNotes: Do not exceed 4gm/day of acetaminophen. (Same as: [place] 325/10) No Longer Active 02/01/2018 [facility] Morphine 6 mg, 3 mL, Route: PO, Drug form: SOLN, Q4H, Dosing Weight 131, kg, PRN Pain Score 7-10, Start date: 02/01/18 11:09:00 CDT, Duration: 30 day, Stop date: 03/03/18 11:08:00 CDTNotes: (Same as:MORPhine Sulfate) No Longer Active 02/01/2018 [facility] valsartan 240 mg, 3 tab, Route: PO, Drug form: TAB, Daily, Dosing Weight 98.182, kg, Start date: 02/01/18 9:00:00 CDT, Duration: 30 day, Stop date: 03/02/18 9:00:00 CDTNotes: Same as Diovan No Longer Active 02/01/2018 [facility] potassium chloride 10 mEq oral tablet, extended release 10 mEq, 1 tab, Route: PO, Drug form: ERTAB, Daily, Dosing Weight 98.182, kg, Start date: 02/01/18 9:00:00 CDT, Duration: 30 day, Stop date: 03/02/18 9:00:00 CDTNotes: (Same as: K-Dur 10) "Do Not Crush" With food and full glass of water No Longer Active 02/01/2018 [facility] NIFEdipine 30 mg oral tablet, extended release [...] Do not crush No Longer Active 02/01/2018 [facility] Aspirin 81 MG Enteric Coated Tablet 81 mg, 1 tab, Route: PO, Drug form: ECTAB, Daily, Dosing Weight 98.182, kg, Start date: 02/01/18 9:00:00 CDT, Duration: 30 day, Stop date: 03/02/18 9:00:00 CDTNotes: Do not crush or chew. (Same As: Ecotrin) No Longer Active 02/01/2018 [facility] Lasix 40 mg, Route: IVP, Drug form: INJ, BID Diuretic, Dosing Weight 98.182, kg, Start date: 02/01/18 8:00:00 CDT, Duration: 30 day, Stop date: 03/02/18 16:00:00 CDT No Longer Active 02/01/2018 [facility] Albuterol 0.833 MG/ML / Ipratropium Bonner 0.167 MG/ML Inhalant Solution 3 mL, Route: NEB, Drug Form: SOLN, Dosing Weight 98.182, kg, RQ6H, Start date: 02/01/18 2:00:00 CDT, Duration: 30 day, Stop date: 03/02/18 20:00:00 CDTNotes: (Same as: Duoneb) No Longer Active 02/01/2018 [facility] methylPREDNISolone SODium SUCCinate 40 mg, 1 mL, Route: IVP, Drug form: INJ, Q8H, Dosing Weight 98.182, kg, Start date: 02/01/18 0:00:00 CDT, Duration: 5 day, Stop date: 02/05/18 16:00:00 CDTNotes: (Same as:Solu-MEDROL, A-Methapred) Inactive 02/01/2018 [facility] Acetaminophen 325 MG / Hydrocodone Bitartrate 10 MG Oral Tablet [[place] 10/325] 1 tab, Route: PO, Drug Form: TAB, Dosing Weight 98.182, kg, Q6H, Start date: 02/01/18 0:00:00 CDT, Duration: 30 day, Stop date: 03/02/18 18:00:00 CDTNotes: Do not exceed 4gm/day of acetaminophen. (Same as: Mohawk 325/10) Inactive 02/01/2018 [facility] Furosemide 40 MG Oral Tablet [Lasix] 40 mg=1 tab, PO, BID, 0 Refill(s) No Longer Active 02/01/2018 [facility] atorvastatin 20 mg oral tablet 20 mg=1 tab, PO, Bedtime, # 30 tab, 0 Refill(s) Active 02/01/2018 [facility] carvedilol 25 mg oral tablet 25 mg=1 tab, PO, BID, # 180 tab, 1 Refill(s) Active 02/01/2018 [facility] zolpidem 10 mg oral tablet 10 mg=1 tab, PO, Bedtime, # 14 tab, 0 Refill(s) No Longer Active 02/01/2018 [facility] Morphine 2 mg, 2 mL, Route: IVP, Drug form: SOLN, Q4H, Dosing Weight 98.182, kg, PRN Pain Score 7-10, Priority: STAT, Start date: 01/31/18 21:01:00 CDT, Duration: 30 day, Stop date: 03/02/18 21:00:00 CDTNotes: Preservative free. (Same as: Morphine Sulfate-PF) No Longer Active 02/01/2018 [facility] Levofloxacin 750 mg, 150 mL, Route: IVPB, Drug form: SOLN, [id number], Dosing Weight 98.182, kg, for CrCl >49 mL/min, Start date: 01/31/18 21:00:00 CDT, Duration: 5 day, Stop date: 02/04/18 21:00:00 CDT, ABX Indication: Non-PNA Respiratory Tract InfectionNotes: (Same as:Levaquin) No Longer Active 02/01/2018 [facility] Ambien 5 mg, 1 tab, Route: PO, Drug form: TAB, Bedtime, Dosing Weight 98.182, kg, Start date: 01/31/18 21:00:00 CDT, Duration: 30 day, Stop date: 03/01/18 21:00:00 CDTNotes: (Same As: Ambien) No Longer Active 02/01/2018 [facility] carvedilol 25 mg, 2 tab, Route: PO, Drug form: TAB, Q12H, Dosing Weight 98.182, kg, Start date: 01/31/18 21:00:00 CDT, Duration: 30 day, Stop date: 03/02/18 9:00:00 CDTNotes: Give with food. (Same As: Coreg) No Longer Active 02/01/2018 [facility] atorvastatin 20 mg, 2 tab, Route: PO, Drug form: TAB, Bedtime, Dosing Weight 98.182, kg, Start date: 01/31/18 21:00:00 CDT, Duration: 30 day, Stop date: 03/01/18 21:00:00 CDTNotes: (Same As: Lipitor) No Longer Active 02/01/2018 [facility] Insulin Lispro 15 unit, 0.15 mL, Route: [...] days from Date No Longer Active 02/01/2018 [facility] Glucagon 1 mg, Route: IM, Drug form: PDR/INJ, PRN, Dosing Weight 98.182, kg, PRN Blood Glucose Results, Start date: 01/31/18 20:38:00 CDT, Duration: 30 day, Stop date: 03/02/18 20:37:00 CDT No Longer Active 02/01/2018 [facility] Dextrose 50% Syringe 25 gm, 50 mL, Route: IVP, Drug Form: INJ, Dosing Weight 98.182, kg, PRN, PRN Blood Glucose Results, Start date: 01/31/18 20:38:00 CDT, Duration: 30 day, Stop date: 03/02/18 20:37:00 CDT No Longer Active 02/01/2018 [facility] Albuterol 0.83 MG/ML Inhalant Solution 2.5 mg, 3.01 mL, Route: NEB, Drug form: SOLN, RQ2H, Dosing Weight 98.182, kg, PRN Wheezing, Priority: Routine, Start date: 01/31/18 20:35:00 CDT, Duration: 30 day, Stop date: 03/02/18 20:34:00 CDTNotes: SEE RT DOCUMENTATION (Same as: Donnell) No Longer Active 02/01/2018 [facility] Sodium Chloride 0.9% (Bolus) IV 1,000 mL, 1000 ml/hr, Infuse Over: 1 hr, Route: IV, 1,000, Drug form: INJ, ONCE, Priority: STAT, Dosing Weight 98.182 kg, Start date: 01/31/18 18:05:00 CDT, Stop date: 01/31/18 18:05:00 CDT Inactive 01/31/2018 [facility] Naloxone 2 mg, 2 mL, Route: IVP, Drug form: INJ, ONCE, Dosing Weight 98.182, kg, Priority: STAT, Start date: 01/31/18 18:05:00 CDT, Stop date: 01/31/18 18:05:00 CDTNotes: (Same as: Narcan) MEDICATION WASTE Product Size: 2 mg Product Wasted: ___ mg Inactive 01/31/2018 [facility] Albuterol 0.833 MG/ML / Ipratropium Bonner 0.167 MG/ML Inhalant Solution [DuoNeb] 9 mL, Route: NEB, Drug Form: SOLN, Dosing Weight 98.182, kg, PRN, PRN Respiratory Pathway, Start date: 01/31/18 18:04:00 CDT, Duration: 30 day, Stop date: 03/02/18 18:03:00 CDTNotes: (Same as: Duoneb) No Longer Active 01/31/2018 [facility] Solu-Medrol 125 mg, Route: IVP, ONCE, Dosing Weight 98.182, kg, Priority: STAT, Start date: 01/31/18 17:18:00 CDT, Stop date: 01/31/18 17:18:00 CDT Inactive 01/31/2018 [facility] Saline Flush 0.9% 10 mL, Route: IVP, Drug Form: INJ, Dosing Weight 98.182, kg, PRN, PRN Line Flush, Start date: 01/31/18 17:08:00 CDT, Duration: 30 day, Stop date: 03/02/18 17:07:00 CDTNotes: (Same as: BD Posiflush) No Longer Active 01/31/2018 [facility] Furosemide 40 MG Oral Tablet [Lasix] 40 mg=1 tab, PO, BID, # 60 tab, 0 Refill(s), Pharmacy: [facility] Active 01/09/2018 [facility] NIFEdipine 30 mg oral tablet, extended release 30 mg=1 tab, PO, Daily, # 30 tab, 0 Refill(s), Pharmacy: [id number] Active 01/09/2018 [facility] predniSONE 20 mg oral tablet 20 mg=1 tab, PO, Daily, X 5 day, # 5 tab, 0 Refill(s), Pharmacy: [id number] Active 01/09/2018 [facility] valsartan 80 mg oral tablet 240 mg=3 tab, PO, Daily, # 90 tab, 0 Refill(s), Pharmacy: [id number] Active 01/09/2018 [facility] carvedilol 25 mg oral tablet 25 mg=1 tab, PO, Q12H, # 60 tab, 0 Refill(s), Pharmacy: [id number] Active 01/09/2018 [facility] Furosemide 40 MG Oral Tablet [Lasix] 40 mg, 1 tab, Route: PO, Drug form: TAB, BID, Dosing Weight 134.4, kg, Start date: 01/09/18 10:00:00 CDT, Duration: 30 day, Stop date: 02/08/18 9:00:00 CDTNotes: (Same as: Lasix) May cause GI upset. Give with food or milk. Inactive 01/09/2018 [facility] Nifedical XL 30 mg, 1 tab, Route: PO, Drug form: ERTAB, Daily, Dosing Weight 134.4, kg, Priority: NOW, Start date: 01/08/18 18:06:00 CDT, Duration: 30 day, Stop date: 02/07/18 9:00:00 CDTNotes: (Same as: Adalat C C, Procardia XL) Give on empty stomach. Take 1 hour before or 2 hours after meal; "Avoid grapefruit and grapefruit juice". Do not crush No Longer Active 01/08/2018 [facility] Prednisone 20 mg, 1 tab, Route: PO, Drug form: TAB, Daily, Dosing Weight 134.4, kg, Start date: 01/08/18 9:00:00 CDT, Stop date: 02/06/18 9:00:00 CDTNotes: Take with food. No Longer Active 01/08/2018 [facility] valsartan 240 mg, 3 tab, Route: PO, Drug form: TAB, Daily, Dosing Weight 134.4, kg, Start date: 01/08/18 9:00:00 CDT, Duration: 30 day, Stop date: 02/06/18 9:00:00 CDTNotes: Same as Diovan No Longer Active 01/08/2018 [facility] carvedilol 25 mg, 2 tab, Route: PO, Drug form: TAB, Q12H, Dosing Weight 134.4, kg, Start date: 01/08/18 9:00:00 CDT, Duration: 30 day, Stop date: 02/06/18 21:00:00 CDTNotes: Give with food. (Same As: Coreg) No Longer Active 01/08/2018 [facility] carvedilol 12.5 mg, 1 tab, Route: PO, Drug form: TAB, Q12H, Dosing Weight 134.4, kg, Start date: 01/07/18 21:00:00 CDT, Duration: 30 day, Stop date: 02/06/18 9:00:00 CDTNotes: Give with food. (Same As: Coreg) Inactive 01/08/2018 [facility] atorvastatin 20 mg, 2 tab, Route: PO, Drug form: TAB, Bedtime, Dosing Weight 134.4, kg, Start date: 01/07/18 21:00:00 CDT, Duration: 30 day, Stop date: 02/05/18 21:00:00 CDTNotes: (Same As: Lipitor) No Longer Active 01/08/2018 [facility] Amitriptyline 25 mg, 1 tab, Route: PO, Drug form: TAB, Bedtime, Dosing Weight 134.4, kg, Start date: 01/07/18 21:00:00 CDT, Duration: 30 day, Stop date: 02/05/18 21:00:00 CDTNotes: (Same as: Elavil) No Longer Active 01/08/2018 [facility] valsartan 160 mg, 1 tab, Route: PO, Drug form: TAB, Daily, Dosing Weight 134.4, kg, Start date: 01/07/18 15:00:00 CDT, Duration: 30 day, Stop date: 02/06/18 9:00:00 CDTNotes: Same as Diovan Inactive 01/07/2018 [facility] Hydralazine 10 mg, 0.5 mL, Route: IVP, Drug form: INJ, Q6H, Dosing Weight 134.4, kg, PRN Hypertension, Start date: 01/07/18 13:56:00 CDT, Duration: 30 day, Stop date: 02/06/18 13:55:00 CDTNotes: (Same as: Joan price) Push over 5 minutes No Longer Active 01/07/2018 [facility] Insulin Lispro 3 unit, 0.03 mL, Route: [...] days from Date No Longer Active 01/07/2018 [facility] Insulin Glargine 100 UNT/ML Injectable Solution [Lantus] 20 unit, 0.2 mL, Route: SUB-Q, Drug form: SOLN, Daily, Dosing Weight 134.4, kg, Start date: 01/07/18 9:55:00 CDT, Duration: 30 day, Stop date: 02/06/18 9:00:00 CDTNotes: (Same as: Lantus) Do not hold insulin without contacting prescriber WASTE: F/P - Black; E - [employer] [facility] "single patient use only" No Longer Active 01/07/2018 [facility] Glucagon 1 mg, Route: IM, Drug form: PDR/INJ, PRN, Dosing Weight 134.4, kg, PRN Blood Glucose Results, Start date: 01/06/18 16:46:00 CDT, Duration: 30 day, Stop date: 02/05/18 16:45:00 CDT No Longer Active 01/06/2018 [facility] Dextrose 50% Syringe 25 gm, 50 mL, Route: IVP, Drug Form: INJ, Dosing Weight 134.4, kg, PRN, PRN Blood Glucose Results, Start date: 01/06/18 16:46:00 CDT, Duration: 30 day, Stop date: 02/05/18 16:45:00 CDT No Longer Active 01/06/2018 [facility] Insulin Lispro 2 unit, 0.02 mL, Route: [...] days from Date No Longer Active 01/06/2018 [facility] Acetaminophen 325 MG / Hydrocodone Bitartrate 5 MG Oral Tablet [[place] 5/325] 1 tab, Route: PO, Drug Form: TAB, Dosing Weight 134.4, kg, Q4H, PRN Pain Score 4-6, Start date: 01/06/18 11:43:00 CDT, Duration: 30 day, Stop date: 02/05/18 11:42:00 CDTNotes: (Same as: [place] 325/5) Do not exceed 4gm/day of acetaminophen. No Longer Active 01/06/2018 [facility] Tylenol 650 mg, 2 tab, Route: PO, Drug form: TAB, Q6H, Dosing Weight 134.4, kg, PRN Pain 1-3/Temp > 100.4 F, Start date: 01/06/18 11:43:00 CDT, Duration: 30 day, Stop date: 02/05/18 11:42:00 CDTNotes: Do not exceed 4 gm/day. (Same as: Tylenol) No Longer Active 01/06/2018 [facility] methylPREDNISolone SODium SUCCinate 40 mg, 1 mL, Route: IVP, Drug form: INJ, Q12H, Dosing Weight 134.4, kg, Start date: 01/06/18 9:00:00 CDT, Duration: 30 day, Stop date: 02/04/18 21:00:00 CDTNotes: (Same as:Solu-MEDROL, A-Methapred) No Longer Active 01/06/2018 [facility] Albuterol 0.833 MG/ML / Ipratropium [place] 0.167 MG/ML Inhalant Solution 3 mL, Route: NEB, Drug Form: SOLN, Dosing Weight 134.4, kg, RQ6H, Start date: 01/06/18 8:00:00 CDT, Duration: 30 day, Stop date: 02/05/18 2:00:00 CDTNotes: (Same as: Duoneb) No Longer Active 01/06/2018 [facility] Enoxaparin 40 mg, 0.4 mL, Route: SUB-Q, Drug form: INJ, [id number], Dosing Weight 134.4, kg, Consider for obese patients, Start date: 01/06/18 7:00:00 CDT, Duration: 30 day, Stop date: 02/04/18 19:00:00 CDTNotes: (Same as: Lovenox) No Longer Active 01/06/2018 [facility] Budesonide 0.25 MG/ML Inhalant Solution 0.5 mg, 2 mL, Route: NEB, Drug form: SUSP, RQ12H, Dosing Weight 134.4, kg, Start date: 01/06/18 6:52:00 CDT, Stop date: 02/04/18 20:00:00 CDT, Notes: (Same As: Pulmicort) No Longer Active 01/06/2018 [facility] Albuterol 0.833 MG/ML / Ipratropium [place] 0.167 MG/ML Inhalant Solution [DuoNeb] 3 ml, Route: NEB, Drug Form: SOLN, Dosing Weight 134.4, kg, PRN, PRN Respiratory Pathway, Start date: 01/06/18 6:52:00 CDT, Duration: 30 day, Stop date: 02/05/18 6:51:00 CDTNotes: (Same as: Duoneb) No Longer Active 01/06/2018 [facility] Lasix 40 mg, 4 mL, Route: IVP, Drug form: INJ, Q12H, Dosing Weight 134.4, kg, Start date: 01/06/18 6:52:00 CDT, Duration: 30 day, Stop date: 02/04/18 21:00:00 CDTNotes: (Same as: Lasix) MEDICATION WASTE Product Size: 40 mg Product Wasted: ___ mg No Longer Active 01/06/2018 [facility] Albuterol 0.833 MG/ML / Ipratropium [place] 0.167 MG/ML Inhalant Solution 3 mL, Route: NEB, Drug Form: SOLN, Dosing Weight 134, kg, ONCE, STAT, Start date: 01/06/18 5:38:00 CDT, Stop date: 01/06/18 5:38:00 CDTNotes: (Same as: Duoneb) Inactive 01/06/2018 [facility] Albuterol 0.83 MG/ML Inhalant Solution 10 mg, 12.05 mL, Route: NEB, Drug form: SOLN, Continuous, Dosing Weight 134, kg, Priority: STAT, Start date: 01/06/18 5:38:00 CDT, Duration: 30 day, Stop date: 02/05/18 5:37:00 CDTNotes: SEE RT DOCUMENTATION (Same as: Proventil) Inactive 01/06/2018 [facility] Aspirin 325 mg, 1 tab, Route: PO, Drug form: ECTAB, ONCE, Dosing Weight 134, kg, Priority: STAT, Start date: 01/06/18 5:09:00 CDT, Stop date: 01/06/18 5:09:00 CDTNotes: (Do Not Crush) Do not crush or chew. Inactive 01/06/2018 [facility] Zofran 4 mg, Route: IVP, Drug form: INJ, ONCE, Dosing Weight 142.591, kg, Priority: STAT, Start date: 01/06/18 3:36:00 CDT, Stop date: 01/06/18 3:36:00 CDT Inactive 01/06/2018 [facility] Morphine 4 mg, Route: IVP, ONCE, Dosing Weight 142.591, kg, Priority: STAT, Start date: 01/06/18 3:36:00 CDT, Stop date: 01/06/18 3:36:00 CDT Inactive 01/06/2018 [facility] Saline Flush 0.9% 10 mL, Route: IVP, Drug Form: INJ, Dosing Weight 142.591, kg, PRN, PRN Line Flush, Start date: 01/06/18 3:20:00 CDT, Duration: 30 day, Stop date: 02/05/18 3:19:00 CDTNotes: Same as: BD Posiflush Sterile No Longer Active 01/06/2018 [facility] potassium chloride 10 mEq oral capsule, extended release 10 mEq=1 cap, PO, Daily, # 30 cap, 0 Refill(s), Pharmacy: [id number] Active 12/04/2017 [facility] Furosemide 40 MG Oral Tablet [Lasix] 40 mg=1 tab, PO, BID, X 30 day, # 60 tab, 1 Refill(s), Pharmacy: [facility] [id number] Active 12/04/2017 [facility] valsartan 160 mg oral tablet 160 mg=1 tab, PO, Daily, X 30 day, # 30 tab, 0 Refill(s), Pharmacy: [facility] [id number] Active 12/04/2017 [facility] atorvastatin 20 mg oral tablet 20 mg=1 tab, PO, Bedtime, X 30 day, # 30 tab, 0 Refill(s), Pharmacy: [facility] [id number] Active 12/04/2017 [facility] Metformin hydrochloride 500 MG Oral Tablet 500 mg=1 tab, PO, BID-Meals, X 30 day, # 60 tab, 0 Refill(s), Pharmacy: [facility] [id number] Active 12/04/2017 [facility] Accu-Chek Guide Blood Glucose Test Strips 1 ea, MISC, Daily, Use for blood glucose monitoring., # 100 ea, Not insulin dependent, Does not use insulin pump, Last DM eval date 12/04/17, 0 Refill(s) Active 12/04/2017 [facility] Accu-Chek FastClix Lancets 1 ea, MISC, Daily, Use for blood glucose monitoring., # 30 ea, Not insulin dependent, Does not use insulin pump, Last DM eval date 12/04/17, 0 Refill(s) Active 12/04/2017 [facility] Nebulizer 1 ea, MISC, ONCALL, # 1 ea, 0 Refill(s) Active 12/04/2017 [facility] Albuterol 0.83 MG/ML Inhalant Solution 2.49 mg=3 mL, INHALATION, Q6H, PRN wheezing, coughing, or shortness of breath, # 100 ea, 0 Refill(s), Pharmacy: [facility] [place] [place] [address] Active 12/04/2017 [facility] Accu-Chek Guide Blood Glucose Meter 1 ea, MISC, ONCE, Use for blood glucose monitoring, # 1 ea, Not insulin dependent, Does not use insulin pump, Last DM eval date 12/04/17, 0 Refill(s) Active 12/04/2017 [facility] potassium chloride 20 mEq oral tablet, extended release 20 mEq=1 tab, PO, Daily, X 30 day, # 30 tab, 0 Refill(s), Pharmacy: [facility] [id number] Active 12/04/2017 [facility] valsartan 160 mg, 1 tab, Route: PO, Drug form: TAB, Daily, Dosing Weight 133.8, kg, Start date: 12/03/17 9:00:00 CDT, Duration: 30 day, Stop date: 01/01/18 9:00:00 CDTNotes: Same as Diovan No Longer Active 12/03/2017 [facility] Sodium Chloride 0.111 MEQ/ML Nasal [place] [Sea Mist] 2 spray, Route: NASAL, BID, Drug form: SOLN, Start date: 12/02/17 18:30:00 CDT, Duration: 2 day, Stop date: 12/04/17 17:00:00 CDTNotes: (Same as: [place], Deep Sea Nasal [place]). No Longer Active 12/02/2017 [facility] valsartan 80 mg, 1 tab, Route: PO, Drug form: TAB, Daily, Dosing Weight 133.8, kg, Start date: 12/02/17 9:00:00 CDT, Duration: 30 day, Stop date: 12/31/17 9:00:00 CDTNotes: Same as Diovan No Longer Active 12/02/2017 [facility] Aspirin 81 MG Enteric Coated Tablet 81 mg, 1 tab, Route: PO, Drug form: ECTAB, Daily, Dosing Weight 133.8, kg, Start date: 12/02/17 9:00:00 CDT, Duration: 30 day, Stop date: 12/31/17 9:00:00 CDTNotes: Do not crush or chew. (Same As: Ecotrin) No Longer Active 12/02/2017 [facility] Ambien 10 mg, 2 tab, Route: PO, Drug form: TAB, Bedtime, Dosing Weight 133.8, kg, PRN Insomnia, Start date: 12/02/17 0:23:00 CDT, Duration: 30 day, Stop date: 01/01/18 0:22:00 CDTNotes: (Same As: Ambien) No Longer Active 12/02/2017 [facility] carvedilol 12.5 mg, 1 tab, Route: PO, Drug form: TAB, Q12H, Dosing Weight 133.8, kg, Start date: 12/01/17 21:00:00 CDT, Duration: 30 day, Stop date: 12/31/17 9:00:00 CDTNotes: Give with food. (Same As: Coreg) No Longer Active 12/02/2017 [facility] Amitriptyline 25 mg, 1 tab, Route: PO, Drug form: TAB, Bedtime, Dosing Weight 133.8, kg, Start date: 12/01/17 21:00:00 CDT, Duration: 30 day, Stop date: 12/30/17 21:00:00 CDTNotes: (Same as: Elavil) No Longer Active 12/02/2017 [facility] atorvastatin 20 mg, 2 tab, Route: PO, Drug form: TAB, Bedtime, Dosing Weight 127.273, kg, Start date: 12/01/17 21:00:00 CDT, Duration: 30 day, Stop date: 12/30/17 21:00:00 CDTNotes: (Same As: Lipitor) No Longer Active 12/02/2017 [facility] Metoprolol 5 mg, 5 mL, Route: IV, Drug form: INJ, Q6H, Dosing Weight 133.8, kg, PRN Tachycardia, Start date: 12/01/17 18:38:00 CDT, Duration: 30 day, Stop date: 12/31/17 18:37:00 CDTNotes: (Same as: Lopressor) Push over 2 minutes No Longer Active 12/01/2017 [facility] Nitroglycerin 0.4 MG Sublingual Tablet 0.4 mg, 1 tab, Route: SL, Drug form: TAB, Q5Min, Dosing Weight 133.8, kg, PRN Chest Pain, Start date: 12/01/17 18:38:00 CDT, Duration: 30 day, Stop date: 12/31/17 18:37:00 CDTNotes: (Same as:Nitroquick, Nitrostat) "Do Not Crush" Sublingual tablet No Longer Active 12/01/2017 [facility] Hydralazine 10 mg, 0.5 mL, Route: IVP, Drug form: INJ, Q4H, Dosing Weight 133.8, kg, PRN Hypertension, Start date: 12/01/17 18:38:00 CDT, Duration: 30 day, Stop date: 12/31/17 18:37:00 CDTNotes: (Same as: Apreso line) Push over 5 minutes No Longer Active 12/01/2017 [facility] Miralax 17 gm, 1 pkt, Route: PO, Drug form: PWDR, Daily, Dosing Weight 133.8, kg, Start date: 12/01/17 16:00:00 CDT, Duration: 30 day, Stop date: 12/31/17 9:00:00 CDTNotes: Dissolve in 8 oz of water or juice. (Same as: Miralax) No Longer Active 12/01/2017 [facility] Aspirin 81 mg, 1 tab, Route: PO, Drug form: ECTAB, Daily, Dosing Weight 127.273, kg, Start date: 12/01/17 9:00:00 CDT, Duration: 30 day, Stop date: 12/30/17 9:00:00 CDTNotes: Do not crush or chew. (Same As: Ecotrin) No Longer Active 12/01/2017 [facility] Glucagon 1 mg, Route: IM, Drug form: PDR/INJ, PRN, Dosing Weight 133.8, kg, PRN Blood Glucose Results, Start date: 12/01/17 0:29:00 CDT, Duration: 30 day, Stop date: 12/31/17 0:28:00 CDT No Longer Active 12/01/2017 [facility] Dextrose 50% Syringe 25 gm, 50 mL, Route: IVP, Drug Form: INJ, Dosing Weight 133.8, kg, PRN, PRN Blood Glucose Results, Start date: 12/01/17 0:29:00 CDT, Duration: 30 day, Stop date: 12/31/17 0:28:00 CDT No Longer Active 12/01/2017 [facility] Insulin Lispro 5 unit, 0.05 mL, Route: [...] days from Date No Longer Active 12/01/2017 [facility] hydrocortisone sodium phosphate INJ 40 mg, 0.8 mL, Route: IVP, Drug form: PDR/INJ, Q6H, Dosing Weight 133.8, kg, Start date: 12/01/17 0:00:00 CDT, Duration: 30 day, Stop date: 12/30/17 18:00:00 CDTNotes: (Same as: [place]) Inactive 12/01/2017 [facility] Acetaminophen 325 MG / Hydrocodone Bitartrate 5 MG Oral Tablet [[place] 5/325] 1 tab, Route: PO, Drug Form: TAB, Dosing Weight 133.8, kg, Q4H, PRN Pain Score 1-3, Start date: 11/30/17 23:36:00 CDT, Duration: 30 day, Stop date: 12/30/17 23:35:00 CDTNotes: (Same as: [place] 325/5) Do not exceed 4gm/day of acetaminophen. No Longer Active 12/01/2017 [facility] Albuterol 0.833 MG/ML / Ipratropium [place] 0.167 MG/ML Inhalant Solution [DuoNeb] 3 ml, Route: NEB, Drug Form: SOLN, Dosing Weight 133.8, kg, Q6H, PRN Respiratory Protocol, Start date: 11/30/17 23:29:00 CDT, Duration: 30 day, Stop date: 12/30/17 23:28:00 CDTNotes: (Same as: Duoneb) No Longer Active 12/01/2017 [facility] tramadol hydrochloride 50 MG Oral Tablet 50 mg, 1 tab, Route: PO, Drug form: TAB, Q6H, Dosing Weight 127.273, kg, PRN Pain Score 1-3, Start date: 11/30/17 22:58:00 CDT, Duration: 30 day, Stop date: 12/30/17 22:57:00 CDTNotes: Not to exceed 400mg/day. (Same As: Ultram) No Longer Active 12/01/2017 [facility] Lasix 60 mg, 6 mL, Route: IV, Drug form: INJ, Q8Hnow, Dosing Weight 127.273, kg, Start date: 11/30/17 22:00:00 CDT, Duration: 30 day, Stop date: 12/30/17 14:00:00 CDTNotes: (Same as: Lasix) MEDICATION WASTE Product Size: 40 mg Product Wasted: ___ mg No Longer Active 12/01/2017 [facility] Enoxaparin 40 mg, 0.4 mL, Route: SUB-Q, Drug form: INJ, [id number], Dosing Weight 127.273, kg, Start date: 11/30/17 22:00:00 CDT, Duration: 30 day, Stop date: 12/29/17 22:00:00 CDTNotes: (Same as: Lovenox) No Longer Active 12/01/2017 [facility] Ondansetron 4 mg, 2 mL, Route: IVP, Drug form: INJ, Q6H, Dosing Weight 127.273, kg, PRN Nausea & Vomiting, Start date: 11/30/17 21:35:00 CDT, Duration: 30 day, Stop date: 12/30/17 21:34:00 CDTNotes: (Same as: Zofran) MEDICATION WASTE Product Size: 4 mg Product Wasted: ___ mg No Longer Active 12/01/2017 [facility] Acetaminophen 650 mg, 2 tab, Route: PO, Drug form: TAB, Q4H, Dosing Weight 127.273, kg, PRN Pain 1-3/Temp > 100.4 F, Start date: 11/30/17 21:35:00 CDT, Duration: 30 day, Stop date: 12/30/17 21:34:00 CDTNotes: Do not exceed 4 gm/day. (Same as: Tylenol) No Longer Active 12/01/2017 [facility] Aspirin 324 mg, 4 tab, Route: CHEW, Drug form: CHEWTAB, ONCE, Dosing Weight 127.273, kg, Priority: STAT, Start date: 11/30/17 21:10:00 CDT, Stop date: 11/30/17 21:10:00 CDTNotes: Take with food. Inactive 12/01/2017 [facility] Lasix 40 mg, 4 mL, Route: IVP, Drug form: INJ, ONCE, Dosing Weight 127.273, kg, Priority: STAT, Start date: 11/30/17 20:08:00 CDT, Stop date: 11/30/17 20:08:00 CDTNotes: (Same as: Lasix) MEDICATION WASTE Product Size: 40 mg Product Wasted: ___ mg Inactive 12/01/2017 [facility] Zofran ODT 4 mg, Route: PO, Drug form: TABDIS, ONCE, Dosing Weight 127.273, kg, Priority: STAT, Start date: 11/30/17 19:59:00 CDT, Stop date: 11/30/17 19:59:00 CDT Inactive 12/01/2017 [facility] Morphine 4 mg, Route: IVP, ONCE, Dosing Weight 127.273, kg, Priority: STAT, Start date: 11/30/17 19:59:00 CDT, Stop date: 11/30/17 19:59:00 CDT Inactive 12/01/2017 [facility] Ativan 1 mg, Route: IVP, Drug form: INJ, ONCE, Dosing Weight 127.273, kg, Priority: STAT, Start date: 11/30/17 19:58:00 CDT, Stop date: 11/30/17 19:58:00 CDT Inactive 12/01/2017 [facility] Saline Flush 0.9% 10 mL, Route: IVP, Drug Form: INJ, Dosing Weight 127.273, kg, PRN, PRN Line Flush, Start date: 11/30/17 19:46:00 CDT, Duration: 30 day, Stop date: 12/30/17 19:45:00 CDTNotes: (Same as: BD Posiflush) No Longer Active 12/01/2017 [facility] valsartan 80 mg oral tablet 40 mg=0.5 tab, PO, Q12H, # 30 tab, 0 Refill(s), Pharmacy: [facility] [id number] No Longer Active 11/08/2017 [facility] Furosemide 40 MG Oral Tablet [Lasix] 40 mg=1 tab, PO, Daily, # 30 tab, 1 Refill(s), Pharmacy: [facility] [id number] No Longer Active 11/08/2017 [facility] carvedilol 12.5 mg oral tablet 12.5 mg=1 tab, PO, Q12H, # 60 tab, 1 Refill(s), Pharmacy: [facility] [id number] No Longer Active 11/08/2017 [facility] Aspirin 81 MG Enteric Coated Tablet 81 mg=1 tab, PO, Daily, # 30 tab, 1 Refill(s), Pharmacy: [facility] [id number] Active 11/08/2017 [facility] Furosemide 40 MG Oral Tablet [Lasix] 40 mg, 1 tab, Route: PO, Drug form: TAB, Daily, Dosing Weight 119.545, kg, Start date: 11/07/17 9:57:00 CDT, Duration: 30 day, Stop date: 12/07/17 9:00:00 CDTNotes: (Same as: Lasix) May cause GI upset. Give with food or milk. No Longer Active 11/07/2017 [facility] valsartan 40 mg, 0.5 tab, Route: PO, Drug form: TAB, Q12H, Dosing Weight 119.545, kg, Start date: 11/07/17 9:56:00 CDT, Duration: 30 day, Stop date: 12/07/17 9:00:00 CDTNotes: Same as Diovan No Longer Active 11/07/2017 [facility] Nitroglycerin 0.4 mg, 1 tab, Route: SL, Drug form: TAB, Q5Min, Dosing Weight 119.545, kg, PRN Chest Pain, Start date: 11/07/17 9:46:00 CDT, Duration: 3 doses or times, Stop date: Limited # of timesNotes: (Same as: Nitroquick, Nitrostat) "Do Not Crush" Sublingual tablet No Longer Active 11/07/2017 [facility] Sodium Chloride 0.9% (Bolus) IV 250 mL, 250 ml/hr, Infuse Over: 1 hr, Route: IV, 250, Drug form: INJ, ONCALL, Priority: Routine, Dosing Weight 119.545 kg, Start date: 11/07/17 9:00:00 CDT, Duration: 1 doses or times No Longer Active 11/07/2017 [place] Sodium Chloride 0.9% IV 750 mL 750 mL, Rate: 75 ml/hr, Infuse over: 10 hr, Route: IV, Dosing Weight 119.545 kg, Total Volume: 750, Start date: 11/07/17 8:11:00 CDT, Duration: 24 hr, Stop date: 11/08/17 8:10:00 CDT, 2.47, m2 Inactive 11/07/2017 [facility] Aspirin 81 mg, 1 tab, Route: PO, Drug form: ECTAB, Daily, Dosing Weight 119.545, kg, Start date: 11/06/17 13:01:00 CDT, Duration: 30 day, Stop date: 12/06/17 9:00:00 CDTNotes: Do not crush or chew. (Same As: Ecotrin) No Longer Active 11/06/2017 [facility] Sodium Chloride 0.9% (titrate) 1,000 mL 1,000 mL, Rate: 50 ml/hr, Infuse over: 20 hr, Dosing Weight 119.545, kg, Route: IV, Total Volume: 1,000, Start Date: 11/06/17 12:22:00 CDT, Duration: 30 day, Stop date: 12/06/17 12:21:00 CDT, Replace Every: 20 hr No Longer Active 11/06/2017 [facility] sodium chloride nasal spray 1 spray, Route: Each Affected Nostril, PRN, Drug form: SOLN, PRN Congestion, Start date: 11/06/17 11:04:00 CDT, Duration: 30 day, Stop date: 12/06/17 11:03:00 CDTNotes: (Same as: [place], Deep Sea Nasal [place]). No Longer Active 11/06/2017 [facility] carvedilol 12.5 mg, 1 tab, Route: PO, Drug form: TAB, Q12H, Dosing Weight 119.545, kg, Start date: 11/05/17 21:00:00 CDT, Duration: 30 day, Stop date: 12/05/17 9:00:00 CDTNotes: Give with food. (Same As: Coreg) No Longer Active 11/06/2017 [facility] Albuterol 0.83 MG/ML Inhalant Solution 2.49 mg, 3 mL, Route: NEB, Drug form: SOLN, PRN, Dosing Weight 119.545, kg, PRN Respiratory Protocol, Start date: 11/05/17 14:59:00 CDT, Duration: 30 day, Stop date: 12/05/17 14:58:00 CDTNotes: SEE RT DOCUMENTATION (Same as: Proventil) No Longer Active 11/05/2017 [facility] Acetaminophen 325 MG / Hydrocodone Bitartrate 10 MG Oral Tablet [[place] 10/325] 1 tab, PO, Q6H, knee and back pain, 0 Refill(s) Active 11/05/2017 [facility] amitriptyline 25 mg oral tablet 25 mg=1 tab, PO, Bedtime, # 30 tab, 1 Refill(s) Active 11/05/2017 [facility] Ambien 10 mg, PO, Bedtime, 0 Refill(s) Active 11/05/2017 [facility] meloxicam 15 mg oral tablet 15 mg=1 tab, PO, Daily, # 30 tab, 0 Refill(s) Active 11/05/2017 [facility] Hydrochlorothiazide 12.5 mg, 1 cap, Route: PO, Drug form: CAP, Daily, Dosing Weight 119.545, kg, Start date: 11/05/17 13:14:00 CDT, Duration: 30 day, Stop date: 12/05/17 9:00:00 CDTNotes: (Same as: Microzide) With food. No Longer Active 11/05/2017 [facility] Enoxaparin 40 mg, 0.4 mL, Route: SUB-Q, Drug form: INJ, [id number], Dosing Weight 119.545, kg, Start date: 11/05/17 11:00:00 CDT, Duration: 30 day, Stop date: 12/04/17 11:00:00 CDTNotes: (Same as: Lovenox) No Longer Active 11/05/2017 [facility] Lasix 40 mg, 4 mL, Route: IVP, Drug form: INJ, Daily, Dosing Weight 119.545, kg, Start date: 11/05/17 10:55:00 CDT, Duration: 30 day, Stop date: 12/05/17 9:00:00 CDTNotes: (Same as: Lasix) MEDICATION WASTE Product Size: 40 mg Product Wasted: ___ mg No Longer Active 11/05/2017 [facility] Acetaminophen 325 MG / Hydrocodone Bitartrate 5 MG Oral Tablet 1 tab, Route: PO, Drug Form: TAB, Dosing Weight 119.545, kg, Q4H, PRN Pain Score 4-6, Start date: 11/05/17 6:26:00 CDT, Duration: 30 day, Stop date: 12/05/17 6:25:00 CDTNotes: (Same as: [place] 325/5) Do not exceed 4gm/day of acetaminophen. No Longer Active 11/05/2017 [facility] Morphine 2 mg, 2 mL, Route: IVP, Drug form: SOLN, Q4H, Dosing Weight 119.545, kg, PRN Pain Score 7-10, Start date: 11/05/17 6:26:00 CDT, Duration: 30 day, Stop date: 12/05/17 6:25:00 CDTNotes: Preservative free. (Same as: Morphine Sulfate-PF) No Longer Active 11/05/2017 [facility] Ondansetron 4 mg, 2 mL, Route: IVP, Drug form: INJ, Q6H, Dosing Weight 119.545, kg, PRN Nausea & Vomiting, Start date: 11/05/17 6:26:00 CDT, Duration: 30 day, Stop date: 12/05/17 6:25:00 CDTNotes: (Same as: Zofran) MEDICATION WASTE Product Size: 4 mg Product Wasted: ___ mg No Longer Active 11/05/2017 [facility] Lasix 20 mg, 2 mL, Route: IVP, Drug form: INJ, ONCE, Dosing Weight 119.545, kg, Start date: 11/05/17 6:26:00 CDT, Stop date: 11/05/17 6:26:00 CDTNotes: (Same as: Lasix) Inactive 11/05/2017 [facility] Albuterol 0.833 MG/ML / Ipratropium [place] 0.167 MG/ML Inhalant Solution [DuoNeb] 3 mL, Route: NEB, Drug Form: SOLN, Dosing Weight 119.545, kg, ONCE, Start date: 11/05/17 4:47:00 CDT, Stop date: 11/05/17 4:47:00 CDTNotes: (Same as: Duoneb) Inactive 11/05/2017 [facility] Sodium Chloride 0.9% (Bolus) IV 500 mL, Infuse Over: 1 hr, Route: IV, ONCE, Priority: STAT, Dosing Weight 119.545 kg, Start date: 11/05/17 4:21:00 CDT, Stop date: 11/05/17 4:21:00 CDT Inactive 11/05/2017 [facility] Albuterol 0.83 MG/ML Inhalant Solution 2.49 mg, Route: NEB, Drug form: SOLN, ONCE, Dosing Weight 119.545, kg, Priority: STAT, Start date: 11/05/17 3:50:00 CDT, Stop date: 11/05/17 3:50:00 CDT Inactive 11/05/2017 [facility] Albuterol 0.833 MG/ML / Ipratropium Bonner 0.167 MG/ML Inhalant Solution [DuoNeb] 3 mL, Route: NEB, Dosing Weight 119.545, kg, ONCE, Start date: 11/05/17 3:49:00 CDT, Stop date: 11/05/17 3:49:00 CDT Inactive 11/05/2017 [facility] Nitroglycerin 0.4 mg, Route: SL, ONCE, Dosing Weight 119.545, kg, Priority: STAT, Start date: 11/05/17 3:48:00 CDT, Stop date: 11/05/17 3:48:00 CDT Inactive 11/05/2017 [facility] methylPREDNISolone SODium SUCCinate 125 mg, 2 mL, Route: IVP, Drug form: INJ, ONCE, Dosing Weight 119.545, kg, Priority: STAT, Start date: 11/05/17 3:32:00 CDT, Stop date: 11/05/17 3:32:00 CDTNotes: (Same as:Solu- MEDROL, A-Methapred) Inactive 11/05/2017 [facility] Saline Flush 0.9% 10 mL, Route: IVP, Drug Form: INJ, Dosing Weight 119.545, kg, PRN, PRN Line Flush, Start date: 11/05/17 3:32:00 CDT, Duration: 30 day, Stop date: 12/05/17 3:31:00 CDTNotes: (Same as: BD Posiflush) No Longer Active 11/05/2017 [facility] Nitroglycerin 0.4 mg, 1 tab, Route: SL, Drug form: TAB, ONCE, Dosing Weight 119.545, kg, Priority: STAT, Start date: 11/05/17 3:31:00 CDT, Stop date: 11/05/17 3:31:00 CDTNotes: (Same as:Nitroquick, Nitrostat) "Do Not Crush" Sublingual tablet Inactive 11/05/2017 [facility] Aspirin 325 mg, 1 tab, Route: PO, Drug form: TAB, ONCE, Dosing Weight 119.545, kg, Priority: STAT, Start date: 11/05/17 3:31:00 CDT, Stop date: 11/05/17 3:31:00 CDTNotes: Take with food. Inactive 11/05/2017 [facility] Allergies, Adverse Reactions, Alerts Substance Category Reaction Severity Reaction type Status Date Reported Comments Source penicillins Assertion Drug allergy Active [facility] lisinopril Assertion Drug allergy Active [facility] Immunizations Immunization Date Given Site Status Last Updated Comments Source pneumococcal 23-valent vaccine 02/01/2018 Left Deltoid completed Joann [facility] Results Order Name Results Value Reference Range Date Interpretation Comments Source CHEM PANEL eGFR 64 mL/min/1.73m2 09/09/2018 Result Comment: The eGFR is calculated using [...] should be multiplied by the estimated BMI. [facility] CHEM PANEL Glucose Lvl 412 mg/dL 70 - 99 09/09/2018 Result Comment: Critical Result(s) called to CHARU _ at09/09/2018 06:03 _ by_pb. Read [facility] OK. [facility] Chloride Lvl 95 meq/L 95 - 109 09/09/2018 [facility] CO2 33 meq/L 24 - 32 09/09/2018 [facility] CHEM PANEL BUN 19 mg/dL 7 - 22 09/09/2018 [facility] Creatinine Lvl 1.45 mg/dL 0.50 - 1.40 09/09/2018 [facility] CHEM PANEL Sodium Lvl 132 meq/L 135 - 145 09/09/2018 [facility] CHEM PANEL Potassium Lvl 5.0 meq/L 3.5 - 5.1 09/09/2018 [facility] CHEM PANEL AGAP 9.0 meq/L 10.0 - 20.0 09/09/2018 [facility] CHEM PANEL Calcium Lvl 9.1 mg/dL 8.5 - 10.5 09/09/2018 [facility] CHEM PANEL Magnesium Lvl 2.3 mg/dL 1.8 - 2.4 09/09/2018 [facility] CHEM PANEL Phosphorus 5.2 mg/dL 2.5 - 4.5 09/09/2018 [facility] HEMATOLOGY Lymphocytes 18.7 % 20.0 - 40.0 09/09/2018 [facility] HEMATOLOGY Monocytes 5.8 % 2.0 - 12.0 09/09/2018 [facility] HEMATOLOGY Basophils 0.4 % 0.0 - 1.0 09/09/2018 [facility] HEMATOLOGY Neutrophils # 5.2 K/CMM 1.5 - 8.1 09/09/2018 [facility] HEMATOLOGY Lymphocytes # 1.3 K/CMM 1.0 - 5.5 09/09/2018 [facility] HEMATOLOGY Segs 75.1 % 45.0 - 75.0 09/09/2018 [facility] HEMATOLOGY Monocytes # 0.4 K/CMM 0.0 - 0.8 09/09/2018 [facility] HEMATOLOGY WBC 6.9 K/CMM 3.7 - 10.4 09/09/2018 [facility] RDW 15.6 % 11.5 - 14.5 09/09/2018 [facility] Platelet 288 K/CMM 133 - 450 09/09/2018 [facility] MPV 7.7 fL 7.4 - 10.4 09/09/2018 [facility] RBC 5.05 M/CMM 4.70 - 6.10 09/09/2018 [facility] Hgb 15.0 g/dL 14.0 - 18.0 09/09/2018 [facility] Hct 46.4 % 42.0 - 54.0 09/09/2018 [facility] MCV 91.8 fL 80.0 - 94.0 09/09/2018 [facility] MCH 29.6 pg 27.0 - 31.0 09/09/2018 [facility] MCHC 32.2 g/dL 32.0 - 36.0 09/09/2018 [facility] CARDIAC ENZYMES CK MB 2.4 ng/mL 0.5 - 3.6 09/09/2018 [facility] CARDIAC ENZYMES Troponin-I 0.04 ng/mL 0.00 - 0.40 09/09/2018 [facility] BACTERIAL - SEROLOGY MRSA by PCR Negative (09/08/18 10:25 PM) 09/09/2018 [facility] CARDIAC ENZYMES CK MB 3.1 ng/mL 0.5 - 3.6 09/09/2018 [facility] CARDIAC ENZYMES Troponin-I 0.06 ng/mL 0.00 - 0.40 09/09/2018 [facility] CARDIAC ENZYMES Troponin-I 0.08 ng/mL 0.00 - 0.40 09/08/2018 [facility] Chest CTA Chest CTA Clinical Indication: - [...] pulmonary embolism or thoracic aortic dissection. SL: [id number] 09/08/2018 - - Read by: Jefry Villa MD Dictated Date/time: 09/08/18 17:40 Electronically Signed by: Jefry Villa MD 09/08/18 17:[address] [facility] CARDIAC ENZYMES BNP 68 pg/mL <=100 pg/mL 09/08/2018 [facility] CARDIAC ENZYMES proBNP 265 pg/mL 0 - 125 09/08/2018 [facility] ELECTROLYTES AGAP 9.4 meq/L 10.0 - 20.0 09/08/2018 [facility] ELECTROLYTES Globulin 4.3 g/dL 2.7 - 4.2 09/08/2018 [facility] ELECTROLYTES A/G Ratio 0.9 0.7 - 1.6 09/08/2018 [facility] ELECTROLYTES B/C Ratio 14 6 - 25 09/08/2018 [facility] ELECTROLYTES eGFR 106 mL/min/1.73m2 09/08/2018 Result Comment: The eGFR is calculated using [...] should be multiplied by the estimated BMI. [facility] ELECTROLYTES Bili Total 0.5 mg/dL 0.2 - 1.3 09/08/2018 [facility] ELECTROLYTES BUN 13 mg/dL 7 - 22 09/08/2018 [facility] ELECTROLYTES Sodium Lvl 136 meq/L 135 - 145 09/08/2018 [facility] ELECTROLYTES Creatinine Lvl 0.96 mg/dL 0.50 - 1.40 09/08/2018 [facility] ELECTROLYTES Potassium Lvl 4.4 meq/L 3.5 - 5.1 09/08/2018 [facility] ELECTROLYTES Chloride Lvl 99 meq/L 95 - 109 09/08/2018 [facility] ELECTROLYTES CO2 32 meq/L 24 - 32 09/08/2018 [facility] ELECTROLYTES Glucose Lvl 235 mg/dL 70 - 99 09/08/2018 [facility] ELECTROLYTES AST 11 unit/L 0 - 37 09/08/2018 [facility] ELECTROLYTES Alk Phos 78 unit/L 39 - 136 09/08/2018 [facility] ELECTROLYTES Calcium Lvl 9.0 mg/dL 8.5 - 10.5 09/08/2018 [facility] ELECTROLYTES Albumin Lvl 3.9 g/dL 3.5 - 5.0 09/08/2018 [facility] ELECTROLYTES Total Protein 8.2 g/dL 6.4 - 8.4 09/08/2018 [facility] ELECTROLYTES ALT 21 unit/L 0 - 65 09/08/2018 [facility] HEMATOLOGY MCH 29.8 pg 27.0 - 31.0 09/08/2018 [facility] HEMATOLOGY RDW 15.2 % 11.5 - 14.5 09/08/2018 [facility] MCHC 33.6 g/dL 32.0 - 36.0 09/08/2018 [facility] HEMATOLOGY MCV 88.7 fL 80.0 - 94.0 09/08/2018 [facility] Platelet 246 K/CMM 133 - 450 09/08/2018 [facility] MPV 7.8 fL 7.4 - 10.4 09/08/2018 [facility] WBC 5.9 K/CMM 3.7 - 10.4 09/08/2018 [facility] RBC 5.32 M/CMM 4.70 - 6.10 09/08/2018 [facility] Hct 47.2 % 42.0 - 54.0 09/08/2018 [facility] Hgb 15.9 g/dL 14.0 - 18.0 09/08/2018 [facility] D-Dimer 0.34 ug/mL FEU 09/08/2018 [facility] Lymphocytes 35.5 % 20.0 - 40.0 09/08/2018 [facility] Monocytes 8.6 % 2.0 - 12.0 09/08/2018 [facility] Segs 53.5 % 45.0 - 75.0 09/08/2018 [facility] Monocytes # 0.5 K/CMM 0.0 - 0.8 09/08/2018 [facility] Eosinophils # 0.1 K/CMM 0.0 - 0.5 09/08/2018 [facility] Neutrophils # 3.2 K/CMM 1.5 - 8.1 09/08/2018 [facility] Basophils 0.6 % 0.0 - 1.0 09/08/2018 [facility] Lymphocytes # 2.1 K/CMM 1.0 - 5.5 09/08/2018 [facility] Eosinophils 1.8 % 0.0 - 4.0 09/08/2018 [facility] Chest 1view DX Chest 1view DX EXAM: Chest 1view DX DATE: 09/08/2018 9:13 [employer] INDICATION: - Chest pain shortness of breath COMPARISON: 05/29/2018. IMPRESSION: Stable cardiac silhouette and mediastinum. Low lung volume. No focal consolidation, significant pleural effusion or pneumothorax. SL: [id number] 09/08/2018 - - Read by: Florentino Hester MD Dictated Date/time: 09/08/18 09:48 Electronically Signed by: Florentino Hester MD 09/08/18 09:[address] [facility] Carotid artery Doppler bilat US Carotid artery Doppler bilat US Patient Name: FABIO CUEVA : 1965; Age: 52 years y/o Male MR: [id number] CAROTID DOPPLER Clinical Indication: - Slurred speech; [...] Jayme Roberson MD 05/29/18 22:[address] [facility] Brain wo contrast CT Brain wo contrast CT Patient Name: FABIO CUEVA : 1965; Age: 52 years Male MR: [id number] Study: Brain wo contrast CT 05/29/2018 1:52 [...] No mass, hemorrhage or subacute stroke. SL: [id number] 05/29/2018 - - Read by: Ben Fink MD Dictated Date/time: 05/29/18 14:12 Electronically Signed by: Ben Fink MD 05/29/18 14:[address] [facility] Chest 1view DX Chest 1view DX Patient Name: FABIO CUEVA : 1965; Age: 52 years Male MR: [id number] Study: Chest 1view DX Order Time: 05/29/2018 1:09 PM CDT CLINICAL INDICATION: - Dyspnea on exertion, orthopnea COMPARISON: Chest radiograph on 05/03/2018 FINDINGS: Lines: None. Lungs: Low lung volumes and bibasilar atelectasis. No effusion or pneumothorax. Mediastinum: The cardiac silhouette is within normal limits of size. Midline trachea. Bones and soft tissues: No acute abnormalities. IMPRESSION: No acute cardiopulmonary abnormalities. SL: [id number] 05/29/2018 - - Read by: Luz Maria Ochoa MD Dictated Date/time: 05/29/18 13:23 Electronically Signed by: Luz Maria Ochoa MD 05/29/18 13:[address] [facility] Abdomen RUQ US Abdomen RUQ US RIGHT [...] Beni Escobar MD 05/04/18 00:[address] [facility] Chest 1view DX Chest 1view DX Clinical [...] radiographic evidence of acute cardiopulmonary disease. SL: [id number] 05/03/2018 - - Read by: Robyn Thomason MD Dictated Date/time: 05/03/18 21:51 Electronically Signed by: Robyn Thomason MD 05/03/18 21:[address] [facility] Chest 1view DX Chest 1view DX Clinical [...] IMPRESSION: No acute infiltrates or effusions. SL: [id number] 03/31/2018 - - Read by: Antonio Palm MD Dictated Date/time: 04/01/18 00:06 Electronically Signed by: Antonio Palm MD 04/01/18 00:[address] [facility] Chest CTA Chest CTA Patient Name: FABIO CUEVA : 1965; Age: 52 years y/o Male MR: [id number] Study: Chest CTA 03/29/2018 10:46 AM CDT [...] size -Use of iterative reconstruction technique Dose: GZY=144.23 mGy-cm FINDINGS: LUNG PARENCHYMA AND PLEURA: The [...] Date/time: 03/29/18 12:13 Electronically Signed by: Lucrecia Coleamn MD 03/29/18 12:[address] [facility] Chest 1view DX Chest 1view DX Study: [...] unremarkable. IMPRESSION: No acute cardiopulmonary disease. SL: [id number] 03/26/2018 - - Read by: Jackie Heller MD Dictated Date/time: 03/26/18 20:10 Electronically Signed by: Jackie Heller MD 03/26/18 20:[address] [facility] ELECTROLYTES AGAP 13.2 meq/L 10.0 - 20.0 02/03/2018 [facility] ELECTROLYTES eGFR 89 mL/min/1.73m2 02/03/2018 Result Comment: [...] should be multiplied by the estimated BMI. [facility] ELECTROLYTES Sodium Lvl 137 meq/L 135 - 145 02/03/2018 [facility] ELECTROLYTES Creatinine Lvl 1.10 mg/dL 0.50 - 1.40 02/03/2018 [facility] ELECTROLYTES Glucose Lvl 160 mg/dL 70 - 99 02/03/2018 [facility] ELECTROLYTES BUN 26 mg/dL 7 - 22 02/03/2018 [facility] ELECTROLYTES Calcium Lvl 9.2 mg/dL 8.5 - 10.5 02/03/2018 [facility] ELECTROLYTES CO2 35 meq/L 24 - 32 02/03/2018 [facility] ELECTROLYTES Chloride Lvl 93 meq/L 95 - 109 02/03/2018 [facility] ELECTROLYTES Potassium Lvl 4.2 meq/L 3.5 - 5.1 02/03/2018 [facility] SPECIAL CHEMISTRY Hgb A1C 8.5 % <=5.6 % 02/03/2018 [facility] CHEM PANEL Magnesium Lvl 2.2 mg/dL 1.8 - 2.4 02/02/2018 [facility] CHEM PANEL Albumin Lvl 3.3 g/dL 3.5 - 5.0 02/02/2018 [facility] CHEM PANEL ALT 26 unit/L 0 - 65 02/02/2018 [facility] CHEM PANEL Potassium Lvl 4.5 meq/L 3.5 - 5.1 02/02/2018 [facility] CHEM PANEL Bili Total 0.4 mg/dL 0.2 - 1.3 02/02/2018 [facility] CHEM PANEL Alk Phos 69 unit/L 39 - 136 02/02/2018 [facility] CHEM PANEL AST 16 unit/L 0 - 37 02/02/2018 [facility] CHEM PANEL CO2 34 meq/L 24 - 32 02/02/2018 [facility] CHEM PANEL Chloride Lvl 95 meq/L 95 - 109 02/02/2018 [facility] CHEM PANEL eGFR 75 mL/min/1.73m2 02/02/2018 Result [...] should be multiplied by the estimated BMI. [facility] CHEM PANEL Total Protein 7.2 g/dL 6.4 - 8.4 02/02/2018 [facility] CHEM PANEL Calcium Lvl 9.2 mg/dL 8.5 - 10.5 02/02/2018 [facility] CHEM PANEL BUN 32 mg/dL 7 - 22 02/02/2018 [facility] CHEM PANEL Sodium Lvl 137 meq/L 135 - 145 02/02/2018 [facility] CHEM PANEL Creatinine Lvl 1.27 mg/dL 0.50 - 1.40 02/02/2018 [facility] CHEM PANEL Glucose Lvl 173 mg/dL 70 - 99 02/02/2018 [facility] CHEM PANEL AGAP 12.5 meq/L 10.0 - 20.0 02/02/2018 [facility] CHEM PANEL A/G Ratio 0.8 0.7 - 1.6 02/02/2018 [facility] CHEM PANEL Globulin 3.9 g/dL 2.7 - 4.2 02/02/2018 [facility] CHEM PANEL B/C Ratio 25 6 - 25 02/02/2018 [facility] HEMATOLOGY WBC 11.7 K/CMM 3.7 - 10.4 02/02/2018 [facility] HEMATOLOGY Platelet 258 K/CMM 133 - 450 02/02/2018 [facility] HEMATOLOGY RBC 4.71 M/CMM 4.70 - 6.10 02/02/2018 [facility] HEMATOLOGY MPV 7.6 fL 7.4 - 10.4 02/02/2018 [facility] HEMATOLOGY Hgb 14.1 g/dL 14.0 - 18.0 02/02/2018 [facility] MCH 29.9 pg 27.0 - 31.0 02/02/2018 [facility] HEMATOLOGY MCV 93.9 fL 80.0 - 94.0 02/02/2018 [facility] HEMATOLOGY Hct 44.3 % 42.0 - 54.0 02/02/2018 [facility] HEMATOLOGY RDW 14.1 % 11.5 - 14.5 02/02/2018 [facility] MCHC 31.9 g/dL 32.0 - 36.0 02/02/2018 [facility] HEMATOLOGY Eosinophils 0.1 % 0.0 - 4.0 02/02/2018 [facility] HEMATOLOGY Monocytes 8.6 % 2.0 - 12.0 02/02/2018 [facility] HEMATOLOGY Lymphocytes 20.8 % 20.0 - 40.0 02/02/2018 [facility] HEMATOLOGY Segs 70.2 % 45.0 - 75.0 02/02/2018 [facility] HEMATOLOGY Basophils 0.3 % 0.0 - 1.0 02/02/2018 [facility] HEMATOLOGY Segs-Bands # 8.2 K/CMM 1.5 - 8.1 02/02/2018 [facility] HEMATOLOGY Lymphocytes # 2.4 K/CMM 1.0 - 5.5 02/02/2018 [facility] HEMATOLOGY Monocytes # 1.0 K/CMM 0.0 - 0.8 02/02/2018 [facility] CARDIAC ENZYMES CK MB 5.4 ng/mL 0.5 - 3.6 02/01/2018 [facility] CARDIAC ENZYMES CK MB Index 1.3 0.0 - 2.5 02/01/2018 [facility] CARDIAC ENZYMES Troponin-I 0.05 ng/mL 0.00 - 0.40 02/01/2018 [facility] CARDIAC ENZYMES Total CK 422 unit/L 12 - 191 02/01/2018 [facility] BACTERIAL - SEROLOGY MRSA by PCR Negative (01/31/18 11:58 PM) 02/01/2018 [facility] DRUG SCREEN UDS Note See Note (01/31/18 11:58 PM) 02/01/2018 [facility] DRUG SCREEN U Phencyc Scr Negative *NA* (01/31/18 11:58 PM) Negative 02/01/2018 [facility] DRUG SCREEN U Opiate Scr Positive *ABN* (01/31/18 11:58 PM) Negative 02/01/2018 [facility] DRUG SCREEN U Elizabeth Scr Negative *NA* (01/31/18 11:58 PM) Negative 02/01/2018 [facility] DRUG SCREEN U Amph Scr Negative *NA* (01/31/18 11:58 PM) Negative 02/01/2018 [facility] DRUG SCREEN U Benzodia Scr Negative *NA* (01/31/18 11:58 PM) Negative 02/01/2018 [facility] DRUG SCREEN U Cannab Scr Negative *NA* (01/31/18 11:58 PM) Negative 02/01/2018 [facility] DRUG SCREEN U Cocaine Scr Negative *NA* (01/31/18 11:58 PM) Negative 02/01/2018 [facility] URINE AND STOOL UA Glucose null 02/01/2018 [facility] URINE AND STOOL UA Color STRAW 02/01/2018 [facility] URINE AND STOOL UA Urobilinogen <=1.0 mg/dL 0.1 - 1.0 02/01/2018 [facility] URINE AND STOOL UA Protein Negative mg/dL Negative mg/dL 02/01/2018 [facility] URINE AND STOOL UA Ketones Negative mg/dL Negative mg/dL 02/01/2018 [facility] URINE AND STOOL UA pH 6.0 5.0 - 8.0 02/01/2018 [facility] URINE AND STOOL UA Bili Negative *NA* (01/31/18 11:58 PM) Negative 02/01/2018 [facility] URINE AND STOOL UA Leuk Est Negative (01/31/18 11:58 PM) Negative 02/01/2018 [facility] URINE AND STOOL UA Blood Small *ABN* (01/31/18 11:58 PM) Negative 02/01/2018 [facility] URINE AND STOOL UA Nitrite Negative (01/31/18 11:58 PM) Negative 02/01/2018 [facility] URINE AND STOOL UA WBC 1 /HPF 0 - 5 02/01/2018 [facility] URINE AND STOOL UA RBC null 0 - 2 02/01/2018 [facility] URINE AND STOOL UA Sq Epi None Seen 02/01/2018 [facility] URINE AND STOOL UA Turbidity Clear (01/31/18 11:58 PM) Clear 02/01/2018 [facility] URINE AND STOOL UA Spec Grav 1.003 <=1.030 02/01/2018 [facility] CARDIAC ENZYMES Troponin-I 0.06 ng/mL 0.00 - 0.40 02/01/2018 [facility] CARDIAC ENZYMES Total CK 433 unit/L 12 - 02/01/2018 [facility] CARDIAC ENZYMES CK MB Index 1.4 0.0 - 2.5 02/01/2018 [facility] CARDIAC ENZYMES CK MB 5.9 ng/mL 0.5 - 3.6 02/01/2018 [facility] CARDIAC ENZYMES Total CK 534 unit/L 12 - 191 01/31/2018 [facility] CARDIAC ENZYMES Troponin-I 0.11 ng/mL 0.00 - 0.40 01/31/2018 [facility] CARDIAC ENZYMES CK MB Index 1.3 0.0 - 2.5 01/31/2018 [facility] CARDIAC ENZYMES proBNP 1159 pg/mL 0 - 125 01/31/2018 [facility] CARDIAC ENZYMES CK MB 6.9 ng/mL 0.5 - 3.6 01/31/2018 [facility] CHEM PANEL Lipase Lvl 146 unit/L 73 - 393 01/31/2018 [facility] CHEM PANEL eGFR 88 mL/min/1.73m2 01/31/2018 Result [...] should be multiplied by the estimated BMI. [facility] CHEM PANEL A/G Ratio 0.8 0.7 - 1.6 01/31/2018 [facility] CHEM PANEL Globulin 4.5 g/dL 2.7 - 4.2 01/31/2018 [facility] CHEM PANEL B/C Ratio 18 6 - 25 01/31/2018 [facility] CHEM PANEL AGAP 14.6 meq/L 10.0 - 20.0 01/31/2018 [facility] Alk Phos 80 unit/L 39 - 136 01/31/2018 [facility] Bili Total 0.7 mg/dL 0.2 - 1.3 01/31/2018 [facility] AST 35 unit/L 0 - 37 01/31/2018 [facility] BUN 20 mg/dL 7 - 22 01/31/2018 [facility] CHE[facility] PAN[facility] Glucose Lvl 133 mg/dL 70 - 99 01/31/2018 [facility] CHEM PANEL ALT 25 unit/L 0 - 65 01/31/2018 [facility] CHEM PANEL Chloride Lvl 91 meq/L 95 - 109 01/31/2018 [facility] CHEM PANEL Total Protein 8.3 g/dL 6.4 - 8.4 01/31/2018 [facility] CHEM PANEL CO2 27 meq/L 24 - 32 01/31/2018 [facility] CHEM PANEL Calcium Lvl 8.8 mg/dL 8.5 - 10.5 01/31/2018 [facility] CHEM PANEL Albumin Lvl 3.8 g/dL 3.5 - 5.0 01/31/2018 [facility] CHEM PANEL Creatinine Lvl 1.11 mg/dL 0.50 - 1.40 01/31/2018 [facility] CHEM PANEL Sodium Lvl 128 meq/L 135 - 145 01/31/2018 [facility] CHEM PANEL Potassium Lvl 4.6 meq/L 3.5 - 5.1 01/31/2018 [facility] HEMATOLOGY Monocytes 7.2 % 2.0 - 12.0 01/31/2018 [facility] HEMATOLOGY Segs 57.4 % 45.0 - 75.0 01/31/2018 [facility] HEMATOLOGY Lymphocytes 33.8 % 20.0 - 40.0 01/31/2018 [facility] HEMATOLOGY Lymphocytes # 2.6 K/CMM 1.0 - 5.5 01/31/2018 [facility] HEMATOLOGY Eosinophils 1.1 % 0.0 - 4.0 01/31/2018 [facility] HEMATOLOGY Segs-Bands # 4.5 K/CMM 1.5 - 8.1 01/31/2018 [facility] HEMATOLOGY Basophils 0.5 % 0.0 - 1.0 01/31/2018 [facility] HEMATOLOGY Eosinophils # 0.1 K/CMM 0.0 - 0.5 01/31/2018 [facility] HEMATOLOGY Monocytes # 0.6 K/CMM 0.0 - 0.8 01/31/2018 [facility] HEMATOLOGY Hgb 15.4 g/dL 14.0 - 18.0 01/31/2018 [facility] HEMATOLOGY Hct 45.4 % 42.0 - 54.0 01/31/2018 [facility] HEMATOLOGY RBC 5.03 M/CMM 4.70 - 6.10 01/31/2018 [facility] HEMATOLOGY WBC 7.8 K/CMM 3.7 - 10.4 01/31/2018 [facility] HEMATOLOGY MCV 90.3 fL 80.0 - 94.0 01/31/2018 [facility] HEMATOLOGY MCH 30.6 pg 27.0 - 31.0 01/31/2018 [facility] HEMATOLOGY Platelet 269 K/CMM 133 - 450 01/31/2018 [facility] HEMATOLOGY MPV 7.4 fL 7.4 - 10.4 01/31/2018 [facility] HEMATOLOGY RDW 13.8 % 11.5 - 14.5 01/31/2018 [facility] HEMATOLOGY MCHC 33.9 g/dL 32.0 - 36.0 01/31/2018 [facility] CHEM PANEL eGFR 87 mL/min/1.73m2 01/09/2018 Result [...] should be multiplied by the estimated BMI. [place] CHEM PANEL BUN 24 mg/dL 7 - 22 [facility] Creat[facility] L[facility] 1.13 mg/dL 0.50 - 1.40 01/09[facility] Potassium Lvl 4.0 meq/L 3.5 - 5.1 01/09/2018 [place] CHEM PANEL Sodium Lvl 139 meq/L 135 - 145 01/09/2018 [place] CHEM PANEL Chloride Lvl 99 meq/L 95 - 109 01/09/2018 [place] CHEM PANEL CO2 33 meq/L 24 - 32 01/09/2018 [place] CHEM PANEL Calcium Lvl 9.0 mg/dL 8.5 - 10.5 01/09[facility]2018 [facility] Glucose Lvl 162 mg/dL 70 - 99 01/09[facility] AGAP 11.0 meq/L 10.0 - 20.0 01/09/2018 [facility] CHEM PANEL Magnesium Lvl 2.1 mg/dL 1.8 - 2.4 01/09/2018 [facility] Hgb 15.0 g/dL 14.0 - 18.0 01/09/2018 [facility] RBC 4.88 M/CMM 4.70 - 6.10 01/09/2018 [facility] WBC 9.0 K/CMM 3.7 - 10.4 01/09/2018 [facility] Hct 44.1 % 42.0 - 54.0 01/09/2018 [facility] MCV 90.4 fL 80.0 - 94.0 01/09/2018 [facility] Platelet 254 K/CMM 133 - 450 01/09/2018 [facility] RDW 14.2 % 11.5 - 14.5 01/09/2018 [facility] [facility] MCH 30.8 pg 27.0 - 31.0 01/09/2018 [facility] MCHC 34.1 g/dL 32.0 - 36.0 01/09/2018 [facility] MPV 7.5 fL 7.4 - 10.4 01/09/2018 [facility] Segs 50.9 % 45.0 - 75.0 01/09/2018 [facility] Lymphocytes 39.2 % 20.0 - 40.0 01/09/2018 [facility] Monocytes 9.0 % 2.0 - 12.0 01/09/2018 [facility] Segs-Bands # 4.6 K/CMM 1.5 - 8.1 01/09/2018 [facility] Lymphocytes # 3.5 K/CMM 1.0 - 5.5 01/09/2018 [facility] Eosinophils 0.4 % 0.0 - 4.0 01/09/2018 [facility] Basophils 0.5 % 0.0 - 1.0 01/09/2018 [facility] Monocytes # 0.8 K/CMM 0.0 - 0.8 01/09/2018 [facility] CHEM PANEL Magnesium Lvl 2.1 mg/dL 1.8 - 2.4 01/08/2018 [facility] CHEM PANEL eGFR 87 mL/min/1.73m2 01/08/2018 Result [...] should be multiplied [facility] the [facility] Sodium Lvl 138 meq/L 135 - 145 [facility]08[facility] CO2 35 meq/L 24 - 32 01/08/2018 [facility] CHEM PANEL Potassium Lvl 3.9 meq/L 3.5 - 5.1 01/08/2018 [facility] CHEM PANEL Creatinine Lvl 1.13 mg/dL 0.50 - 1.40 01/08/2018 [facility] CHEM PANEL Chloride Lvl 98 meq/L 95 - 109 01/08/2018 [facility] CHEM PANEL BUN 27 mg/dL 7 - 22 01/08/2018 [facility] CHEM PANEL Glucose Lvl 187 mg/dL 70 - 99 01/08/2018 [facility] CHEM PANEL Calcium Lvl 9.1 mg/dL 8.5 - 10.5 01/08/2018 [facility] CHEM PANEL AGAP 8.9 meq/L 10.0 - 20.0 01/08/2018 [facility] HEMATOLOGY MPV 7.3 fL 7.4 - 10.4 01/08/2018 [facility] HEMATOLOGY RBC 4.64 M/CMM 4.70 - 6.10 01/08/2018 [facility] HEMATOLOGY Platelet 261 K/CMM 133 - 450 01/08/2018 [facility] HEMATOLOGY Hgb 14.2 g/dL 14.0 - 18.0 01/08/2018 [facility] HEMATOLOGY Hct 42.1 % 42.0 - 54.0 01/08/2018 [facility] HEMATOLOGY MCHC 33.7 g/dL 32.0 - 36.0 01/08/2018 [facility] HEMATOLOGY RDW 14.0 % 11.5 - 14.5 01/08/2018 [facility] HEMATOLOGY MCV 90.9 fL 80.0 - 94.0 01/08/2018 [facility] MCH 30.6 pg 27.0 - 31.0 01/08/2018 [facility] HEMATOLOGY WBC 8.8 K/CMM 3.7 - 10.4 01/08/2018 [facility] Monocytes # 0.8 K/CMM 0.0 - 0.8 01/08/2018 [facility] HEMATOLOGY Segs 59.3 % 45.0 - 75.0 01/08/2018 [facility] Lymphocytes 31.1 % 20.0 - 40.0 01/08/2018 [facility] Monocytes 8.9 % 2.0 - 12.0 01/08/2018 [facility] HEMATOLOGY Lymphocytes # 2.7 K/CMM 1.0 - 5.5 01/08/2018 [facility] Segs-Bands # 5.2 K/CMM 1.5 - 8.1 01/08/2018 [facility] Eosinophils 0.3 % 0.0 - 4.0 01/08/2018 [facility] Basophils 0.4 % 0.0 - 1.0 01/08/2018 [facility] Knee 1-2 Views unilateral DX Knee 1-2 Views unilateral DX Patient Name: FABIO CUEVA : 1965; Age: 52 years y/o Male MR: [id number] Study: 2 view right knee 01/07/2018 6:28 [...] Nahum Noble MD 01/08/18 07:[address] [facility] CHEM PANEL eGFR 81 mL/min/1.73m2 01/07/2018 Result Comment: The [...] should be multiplied by the estimated BMI. [facility] CHEM PANEL Chloride Lvl 99 meq/L 95 - 109 01/07/2018 [facility] CHEM PANEL Sodium Lvl 137 meq/L 135 - 145 01/07/2018 [facility] CHEM PANEL Potassium Lvl 4.4 meq/L 3.5 - 5.1 01/07/2018 [facility] CHEM PANEL Calcium Lvl 9.4 mg/dL 8.5 - 10.5 01/07/2018 [facility] CHEM PANEL CO2 31 meq/L 24 - 32 01/07/2018 [facility] CHEM PANEL Glucose Lvl 308 mg/dL 70 - 99 01/07/2018 [facility] CHEM PANEL BUN 21 mg/dL 7 - 22 01/07/2018 [facility] CHEM PANEL Creatinine Lvl 1.19 mg/dL 0.50 - 1.40 01/07/2018 [facility] CHEM PANEL AGAP 11.4 meq/L 10.0 - 20.0 01/07/2018 [facility] HEMATOLOGY Monocytes # 0.4 K/CMM 0.0 - 0.8 01/07/2018 [facility] HEMATOLOGY Lymphocytes # 1.6 K/CMM 1.0 - 5.5 01/07/2018 [facility] HEMATOLOGY Segs-Bands # 8.1 K/CMM 1.5 - 8.1 01/07/2018 [facility] HEMATOLOGY Basophils 0.3 % 0.0 - 1.0 01/07/2018 [facility] HEMATOLOGY Segs 80.2 % 45.0 - 75.0 01/07/2018 [facility] HEMATOLOGY Lymphocytes 16.0 % 20.0 - 40.0 01/07/2018 [facility] HEMATOLOGY Monocytes 3.5 % 2.0 - 12.0 01/07/2018 [facility] HEMATOLOGY Platelet 268 K/CMM 133 - 450 01/07/2018 [facility] MPV 7.7 fL 7.4 - 10.4 01/07/2018 [facility] HEMATOLOGY WBC 10.1 K/CMM 3.7 - 10.4 01/07/2018 [facility] HEMATOLOGY RBC 4.78 M/CMM 4.70 - 6.10 01/07/2018 [facility] MCV 91.2 fL 80.0 - 94.0 01/07/2018 [facility] HEMATOLOGY Hgb 14.7 g/dL 14.0 - 18.0 01/07/2018 [facility] Hct 43.6 % 42.0 - 54.0 01/07/2018 [facility] MCHC 33.7 g/dL 32.0 - 36.0 01/07/2018 [facility] MCH 30.7 pg 27.0 - 31.0 01/07/2018 [facility] RDW 14.0 % 11.5 - 14.5 01/07/2018 [facility] CARDIAC ENZYMES Troponin-I 0.05 ng/mL 0.00 - 0.40 01/06/2018 [facility] CARDIAC ENZYMES Total CK 172 unit/L 12 - 01/06/2018 [facility] CARDIAC ENZYMES CK MB Index 2.4 0.0 - 2.5 01/06/2018 [facility] CARDIAC ENZYMES CK MB 4.1 ng/mL 0.5 - 3.6 01/06/2018 [facility] CHEM PANEL Magnesium Lvl 1.9 mg/dL 1.8 - 2.4 01/06/2018 [facility] CHEM PANEL Phosphorus 4.5 mg/dL 2.5 - 4.5 01/06/2018 [facility] CARDIAC ENZYMES CK MB Index 2.3 0.0 - 2.5 01/06/2018 [facility] CARDIAC ENZYMES CK MB 4.7 ng/mL 0.5 - 3.6 01/06/2018 [facility] CARDIAC ENZYMES Troponin-I 0.06 ng/mL 0.00 - 0.40 01/06/2018 [facility] CARDIAC ENZYMES Total CK 205 unit/L 12 - 191 01/06/2018 [facility] BACTERIAL - SEROLOGY MRSA by PCR Negative (6/3/18 6:47 AM) 01/06/2018 [facility] CARDIAC ENZYMES CK MB Index 2.1 0.0 - 2.5 01/06/2018 [facility] CARDIAC ENZYMES proBNP 219 pg/mL 0 - 125 01/06/2018 [facility] CARDIAC ENZYMES Total CK 249 unit/L 12 - 191 01/06/2018 [facility] CARDIAC ENZYMES Troponin-I 0.08 ng/mL 0.00 - 0.40 01/06/2018 [facility] CARDIAC ENZYMES CK MB 5.2 ng/mL 0.5 - 3.6 01/06/2018 [facility] CHEM PANEL B/C Ratio 15 6 - 25 01/06/2018 [facility] CHEM PANEL Globulin 4.6 g/dL 2.7 - 4.2 01/06/2018 [facility] CHEM PANEL A/G Ratio 0.8 0.7 - 1.6 01/06/2018 [facility] CHEM PANEL Bili Total 0.2 mg/dL 0.2 - 1.3 01/06/2018 [facility] CHEM PANEL AST 21 unit/L 0 - 37 01/06/2018 [facility] CHEM PANEL Alk Phos 81 unit/L 39 - 136 01/06/2018 [facility] CHEM PANEL ALT 30 unit/L 0 - 65 01/06/2018 [facility] CHEM PANEL Total Protein 8.4 g/dL 6.4 - 8.4 01/06/2018 [facility] CHEM PANEL Albumin Lvl 3.8 g/dL 3.5 - 5.0 01/06/2018 [facility] HEMATOLOGY Eosinophils 1.4 % 0.0 - 4.0 01/06/2018 [facility] HEMATOLOGY Eosinophils # 0.1 K/CMM 0.0 - 0.5 01/06/2018 [facility] HEMATOLOGY Basophils # 0.1 K/CMM 0.0 - 0.2 01/06/2018 [facility] HEMATOLOGY Plt Morph Normal (01/06/18 3:30 AM) 01/06/2018 [facility] HEMATOLOGY RBC Morph Normal (01/06/18 3:30 AM) 01/06/2018 [facility] HEMATOLOGY PTT 28.2 s 22.9 - 35.8 01/06/2018 [facility] HEMATOLOGY PT 12.4 s 12.0 - 14.7 01/06/2018 [facility] HEMATOLOGY INR 0.92 0.85 - 1.17 01/06/2018 [facility] Chest Pulmonary Embolism CTA Chest Pulmonary Embolism [...] 1. Unremarkable CTA of the chest. SL: [id number] 01/06/2018 - - Read by: Antonio Palm MD Dictated Date/time: 01/06/18 04:48 Electronically Signed by: Antonio Palm MD 01/06/18 04:[address] [facility] Chest 1view DX Chest 1view DX Clinical Indication: - Shortness of breath Comparison: 11/30/2017 FINDINGS: AP chest radiograph was obtained. MEDIASTINUM: The cardiac silhouette is normal in size. The aorta is unremarkable. LUNGS: Lung volumes are maintained. There are no focal infiltrates or effusions. There are no pneumothoraces noted. BONES: The visualized osseous structures are unremarkable. IMPRESSION: No acute infiltrates or effusions. SL: [id number] 01/06/2018 - - Read by: Antonio Palm MD Dictated Date/time: 01/06/18 03:49 Electronically Signed by: Antonio Palm MD 01/06/18 03:[address] [facility] CHEM PANEL eGFR 86 mL/min/1.73m2 12/04/2017 Result [...] should be multiplied by the estimated BMI. [facility] CHEM PANEL AGAP 8.7 meq/L 10.0 - 20.0 12/04/2017 [facility] CHEM PANEL CO2 34 meq/L 24 - 32 12/04/2017 [facility] CHEM PANEL Calcium Lvl 8.8 mg/dL 8.5 - 10.5 12/04/2017 [facility] CHEM PANEL Chloride Lvl 99 meq/L 95 - 109 12/04/2017 [facility] CHEM PANEL Potassium Lvl 3.7 meq/L 3.5 - 5.1 12/04/2017 [facility] CHEM PANEL Creatinine Lvl 1.14 mg/dL 0.50 - 1.40 12/04/2017 [facility] CHEM PANEL BUN 25 mg/dL 7 - 22 12/04/2017 [facility] CHEM PANEL Glucose Lvl 153 mg/dL 70 - 99 12/04/2017 [facility] CHEM PANEL Sodium Lvl 138 meq/L 135 - 145 12/04/2017 [facility] CHEM PANEL Magnesium Lvl 2.1 mg/dL 1.8 - 2.4 12/04/2017 [facility] CHEM PANEL Magnesium Lvl 2.1 mg/dL 1.8 - 2.4 12/03/2017 [facility] CHEM PANEL Calcium Lvl 8.8 mg/dL 8.5 - 10.5 12/03/2017 [facility] CHEM PANEL AGAP 11.0 meq/L 10.0 - 20.0 12/03/2017 [facility] CHEM PANEL CO2 33 meq/L 24 - 32 12/03/2017 [facility] CHEM PANEL Potassium Lvl 4.0 meq/L 3.5 - 5.1 12/03/2017 [facility] CHEM PANEL Chloride Lvl 99 meq/L 95 - 109 12/03/2017 [facility] CHEM PANEL Sodium Lvl 139 meq/L 135 - 145 12/03/2017 [facility] CHEM PANEL Glucose Lvl 153 mg/dL 70 - 99 12/03/2017 [facility] CHEM PANEL BUN 28 mg/dL 7 - 22 12/03/2017 [facility] CHEM PANEL Creatinine Lvl 1.30 mg/dL 0.50 - 1.40 12/03/2017 [facility] CHEM PANEL eGFR 73 mL/min/1.73m2 12/03/2017 Result [...] should be multiplied by the estimated BMI. [facility] CARDIAC ENZYMES BNP 28 pg/mL <=100 pg/mL 12/02/2017 [facility] CHEM PANEL Magnesium Lvl 2.2 mg/dL 1.8 - 2.4 12/02/2017 [facility] CHEM PANEL eGFR 81 mL/min/1.73m2 12/02/2017 Result [...] should be multiplied [facility] the [facility] Sodium Lvl 139 meq/L 135 - 145 12/02/2017 [facility] CHEM PANEL Chloride Lvl 98 meq/L 95 - 109 12/02/2017 [facility] CHEM PANEL Potassium Lvl 3.9 meq/L 3.5 - 5.1 12/02/2017 [facility] CHEM PANEL Creatinine Lvl 1.19 mg/dL 0.50 - 1.40 12/02/2017 [facility] CHEM PANEL BUN 23 mg/dL 7 - 22 12/02/2017 [facility] CHEM PANEL AGAP 8.9 meq/L 10.0 - 20.0 12/02/2017 [facility] CHEM PANEL Calcium Lvl 9.0 mg/dL 8.5 - 10.5 12/02/2017 [facility] CHEM PANEL CO2 36 meq/L 24 - 32 12/02/2017 [facility] CHEM PANEL Glucose Lvl 167 mg/dL 70 - 99 12/02/2017 [facility] Abdomen AP DX Abdomen AP DX Patient Name: FABIO CUEVA : 1965; Age: 52 years y/o Male MR: [id number] * ABDOMEN, 1 view HISTORY: Acute generalized [...] Jayme Roberson MD 12/01/17 17:[address] [facility] CARDIAC ENZYMES CK MB Index 2.1 0.0 - 2.5 12/01/2017 [facility] CARDIAC ENZYMES CK MB 3.8 ng/mL 0.5 - 3.6 12/01/2017 [facility] CARDIAC ENZYMES Troponin-I 0.03 ng/mL 0.00 - 0.40 12/01/2017 [facility] CARDIAC ENZYMES Total CK 185 unit/L 12 - 191 12/01/2017 [facility] CHEM PANEL B/C Ratio 16 6 - 25 12/01/2017 [facility] CHEM PANEL Globulin 4.8 g/dL 2.7 - 4.2 12/01/2017 [facility] CHEM PANEL A/G Ratio 0.8 0.7 - 1.6 12/01/2017 [facility] CHEM PANEL ALT 30 unit/L 0 - 65 12/01/2017 [facility] CHEM PANEL Total Protein 8.6 g/dL 6.4 - 8.4 12/01/2017 [facility] CHEM PANEL Albumin Lvl 3.8 g/dL 3.5 - 5.0 12/01/2017 [facility] CHEM PANEL Bili Total 0.4 mg/dL 0.2 - 1.3 12/01/2017 [facility] CHEM PANEL Alk Phos 79 unit/L 39 - 136 12/01/2017 [facility] CHEM PANEL AST 16 unit/L 0 - 37 12/01/2017 [facility] HEMATOLOGY Segs 58.6 % 45.0 - 75.0 12/01/2017 [facility] Lymphocytes 36.7 % 20.0 - 40.0 12/01/2017 [facility] HEMATOLOGY Segs-Bands # 4.1 K/CMM 1.5 - 8.1 12/01/2017 [facility] HEMATOLOGY Lymphocytes # 2.6 K/CMM 1.0 - 5.5 12/01/2017 [facility] HEMATOLOGY Eosinophils 0.3 % 0.0 - 4.0 12/01/2017 [facility] HEMATOLOGY Monocytes 4.1 % 2.0 - 12.0 12/01/2017 [facility] HEMATOLOGY Basophils 0.3 % 0.0 - 1.0 12/01/2017 [facility] HEMATOLOGY Monocytes # 0.3 K/CMM 0.0 - 0.8 12/01/2017 [facility] HEMATOLOGY PTT 30.7 s 22.9 - 35.8 12/01/2017 [facility] HEMATOLOGY PT 13.3 s 12.0 - 14.7 12/01/2017 [facility] HEMATOLOGY INR 1.01 0.85 - 1.17 12/01/2017 [facility] MCH 30.2 pg 27.0 - 31.0 12/01/2017 [facility] HEMATOLOGY MCV 91.7 fL 80.0 - 94.0 12/01/2017 [facility] HEMATOLOGY Hct 44.8 % 42.0 - 54.0 12/01/2017 [facility] HEMATOLOGY MCHC 33.0 g/dL 32.0 - 36.0 12/01/2017 [facility] HEMATOLOGY RDW 14.5 % 11.5 - 14.5 12/01/2017 [facility] HEMATOLOGY Platelet 273 K/CMM 133 - 450 12/01/2017 [facility] HEMATOLOGY MPV 7.8 fL 7.4 - 10.4 12/01/2017 [facility] HEMATOLOGY Hgb 14.8 g/dL 14.0 - 18.0 12/01/2017 [facility] HEMATOLOGY WBC 7.0 K/CMM 3.7 - 10.4 12/01/2017 [facility] HEMATOLOGY RBC 4.89 M/CMM 4.70 - 6.10 12/01/2017 [facility] SPECIAL CHEMISTRY Hgb A1C 7.3 % <=5.6 % 12/01/2017 [facility] Knee 1-2 Views unilateral DX Knee 1-2 [...] seen. IMPRESSION: Severe osteoarthritis. No fracture. SL: [id number] 12/01/2017 - - Read by: Angel Carson MD Dictated Date/time: 12/01/17 09:31 Electronically Signed by: Angel Carson MD 12/01/17 09:[address] [facility] Pelvis AP DX Pelvis AP DX Study: Pelvis AP DX portable 11/23/2017 0543 hours Clinical Indication: - pain in lower back and pelvis after fall; Comparison: None FINDINGS: Image quality is severely compromised by the large patient size. No gross fracture or dislocation is identified. Sacroiliac and hip joints are maintained. SL: [id number] 12/01/2017 - - Read by: Angel Carson MD Dictated Date/time: 12/01/17 09:32 Electronically Signed by: Angel Carson MD 12/01/17 09:[address] [facility] CARDIAC ENZYMES CK MB 3.5 ng/mL 0.5 - 3.6 12/01/2017 [facility] CARDIAC ENZYMES CK MB Index 1.9 0.0 - 2.5 12/01/2017 [facility] CARDIAC ENZYMES Troponin-I 0.04 ng/mL 0.00 - 0.40 12/01/2017 [facility] CARDIAC ENZYMES Total CK 189 unit/L 12 - 191 12/01/2017 [facility] CARDIAC ENZYMES CK MB Index 1.8 0.0 - 2.5 12/01/2017 [facility] CARDIAC ENZYMES Troponin-I 0.05 ng/mL 0.00 - 0.40 12/01/2017 [facility] CARDIAC ENZYMES proBNP 318 pg/mL 0 - 125 12/01/2017 [facility] CARDIAC ENZYMES Total CK 217 unit/L 12 - 191 12/01/2017 [facility] CARDIAC ENZYMES CK MB 4.0 ng/mL 0.5 - 3.6 12/01/2017 [facility] CHEM PANEL Bili Total 0.3 mg/dL 0.2 - 1.3 12/01/2017 [facility] CHEM PANEL A/G Ratio 0.8 0.7 - 1.6 12/01/2017 [facility] CHEM PANEL Globulin 4.6 g/dL 2.7 - 4.2 12/01/2017 [facility] CHEM PANEL Alk Phos 83 unit/L 39 - 136 12/01/2017 [facility] CHEM PANEL B/C Ratio 14 6 - 25 12/01/2017 [facility] CHEM PANEL Total Protein 8.4 g/dL 6.4 - 8.4 12/01/2017 [facility] CHEM PANEL Albumin Lvl 3.8 g/dL 3.5 - 5.0 12/01/2017 [facility] CHEM PANEL ALT 30 unit/L 0 - 65 12/01/2017 [facility] CHEM PANEL AST 20 unit/L 0 - 37 12/01/2017 [facility] HEMATOLOGY Eosinophils 1.3 % 0.0 - 4.0 12/01/2017 [facility] HEMATOLOGY Monocytes 7.0 % 2.0 - 12.0 12/01/2017 [facility] HEMATOLOGY Lymphocytes 38.5 % 20.0 - 40.0 12/01/2017 [facility] HEMATOLOGY Segs 52.7 % 45.0 - 75.0 12/01/2017 [facility] HEMATOLOGY Eosinophils # 0.1 K/CMM 0.0 - 0.5 12/01/2017 [facility] HEMATOLOGY Monocytes # 0.5 K/CMM 0.0 - 0.8 12/01/2017 [facility] HEMATOLOGY Lymphocytes # 2.9 K/CMM 1.0 - 5.5 12/01/2017 [facility] Segs-Bands # 4.0 K/CMM 1.5 - 8.1 12/01/2017 [facility] Basophils 0.5 % 0.0 - 1.0 12/01/2017 [facility] PTT 28.9 s 22.9 - 35.8 12/01/2017 [facility] PT 13.1 s 12.0 - 14.7 12/01/2017 [facility] INR 0.99 0.85 - 1.17 12/01/2017 [facility] Hct 44.6 % 42.0 - 54.0 12/01/2017 [facility] Hgb 14.8 g/dL 14.0 - 18.0 12/01/2017 [facility] RBC 4.93 M/CMM 4.70 - 6.10 12/01/2017 [facility] MPV 7.9 fL 7.4 - 10.4 12/01/2017 [facility] Platelet 266 K/CMM 133 - 450 12/01/2017 [facility] RDW 14.4 % 11.5 - 14.5 12/01/2017 [facility] MCHC 33.2 g/dL 32.0 - 36.0 12/01/2017 [facility] MCH 30.1 pg 27.0 - 31.0 12/01/2017 [facility] WBC 7.6 K/CMM 3.7 - 10.4 12/01/2017 [facility] MCV 90.6 fL 80.0 - 94.0 12/01/2017 [facility] Chest 1view DX Chest 1view DX Clinical [...] IMPRESSION: Left midlung scarring or atelectasis. SL: [id number] 11/30/2017 - - Read by: Fidencio Eli MD Dictated Date/time: 11/30/17 20:22 Electronically Signed by: Fidencio Eli MD 11/30/17 20:[address] [facility] CHEM PANEL Magnesium Lvl 2.2 mg/dL 1.8 - 2.4 11/08/2017 [facility] CHEM PANEL Phosphorus 4.1 mg/dL 2.5 - 4.5 11/08/2017 [facility] ELECTROLYTES AGAP 9.2 meq/L 10.0 - 20.0 11/08/2017 [facility] ELECTROLYTES B/C Ratio 19 6 - 25 11/08/2017 [facility] ELECTROLYTES Globulin 4.3 g/dL 2.7 - 4.2 11/08/2017 [facility] ELECTROLYTES A/G Ratio 0.8 0.7 - 1.6 11/08/2017 [facility] ELECTROLYTES eGFR 85 mL/min/1.73m2 11/08/2017 Result Comment: [...] should be multiplied by the estimated BMI. [facility] ELECTROLYTES Total Protein 7.8 g/dL 6.4 - 8.4 11/08/2017 [facility] ELECTROLYTES ALT 28 unit/L 0 - 65 11/08/2017 [facility] ELECTROLYTES Albumin Lvl 3.5 g/dL 3.5 - 5.0 11/08/2017 [facility] ELECTROLYTES AST 14 unit/L 0 - 37 11/08/2017 [facility] ELECTROLYTES Alk Phos 72 unit/L 39 - 136 11/08/2017 [facility] ELECTROLYTES Bili Total 0.5 mg/dL 0.2 - 1.3 11/08/2017 [facility] ELECTROLYTES Calcium Lvl 9.0 mg/dL 8.5 - 10.5 11/08/2017 [facility] ELECTROLYTES Glucose Lvl 117 mg/dL 70 - 99 11/08/2017 [facility] ELECTROLYTES BUN 22 mg/dL 7 - 22 11/08/2017 [facility] ELECTROLYTES Creatinine Lvl 1.15 mg/dL 0.50 - 1.40 11/08/2017 [facility] ELECTROLYTES CO2 31 meq/L 24 - 32 11/08/2017 [facility] ELECTROLYTES Potassium Lvl 4.2 meq/L 3.5 - 5.1 11/08/2017 [facility] ELECTROLYTES Sodium Lvl 138 meq/L 135 - 145 11/08/2017 [facility] ELECTROLYTES Chloride Lvl 102 meq/L 95 - 109 11/08/2017 [facility] HEMATOLOGY MCHC 34.3 g/dL 32.0 - 36.0 11/08/2017 [facility] HEMATOLOGY MCV 89.9 fL 80.0 - 94.0 11/08/2017 [facility] MCH 30.8 pg 27.0 - 31.0 11/08/2017 [facility] HEMATOLOGY RDW 14.7 % 11.5 - 14.5 11/08/2017 [facility] HEMATOLOGY Platelet 296 K/CMM 133 - 450 11/08/2017 [facility] HEMATOLOGY MPV 7.7 fL 7.4 - 10.4 11/08/2017 [facility] HEMATOLOGY WBC 7.2 K/CMM 3.7 - 10.4 11/08/2017 [facility] HEMATOLOGY Hct 43.3 % 42.0 - 54.0 11/08/2017 [facility] RBC 4.81 M/CMM 4.70 - 6.10 11/08/2017 [facility] Hgb 14.8 g/dL 14.0 - 18.0 11/08/2017 [facility] HEMATOLOGY Eosinophils 1.5 % 0.0 - 4.0 11/08/2017 [facility] HEMATOLOGY Eosinophils # 0.1 K/CMM 0.0 - 0.5 11/08/2017 [facility] HEMATOLOGY Monocytes # 0.6 K/CMM 0.0 - 0.8 11/08/2017 [facility] HEMATOLOGY Lymphocytes # 3.1 K/CMM 1.0 - 5.5 11/08/2017 [facility] HEMATOLOGY Segs-Bands # 3.3 K/CMM 1.5 - 8.1 11/08/2017 [facility] Basophils 0.5 % 0.0 - 1.0 11/08/2017 [facility] HEMATOLOGY Segs 45.7 % 45.0 - 75.0 11/08/2017 [facility] HEMATOLOGY Monocytes 8.9 % 2.0 - 12.0 11/08/2017 [facility] HEMATOLOGY Lymphocytes 43.4 % 20.0 - 40.0 [facility] Magnesium Lvl 2.2 mg/dL 1.8 - 2.4 11/07/2017 [facility] CHEM PANEL Phosphorus 3.6 mg/dL 2.5 - 4.5 11/07/2017 [facility] CHEM PANEL eGFR 93 mL/min/1.73m2 11/07/2017 Result [...] should be multiplied by the estimated BMI. [place] CHEM PANEL Calcium Lvl 8.6 mg/dL 8.5 - 10.5 11/07/2017 [facility] [facility] CHEM PANEL AGAP 9.5 meq/L 10.0 - 20.0 [facility] Potassium Lvl 4.5 meq/L 3.5 - 5.1 [facility]/07[facility] CO2 32 meq/L 24 - 32 [facility]/07[facility] Chloride Lvl 100 meq/L 95 - 109 [facility]/07[facility] Sodium Lvl 137 meq/L 135 - 145 11/07/2017 [facility] CHEM PANEL BUN 25 mg/dL 7 - 22 [facility]/07[facility] Glucose Lvl 121 mg/dL 70 - 99 [facility]/07[facility] Creatinine Lvl 1.06 mg/dL 0.50 - 1.40 11/07/2017 [facility] Alk Phos 70 unit/L 39 - 136 11/06/2017 [facility] CHEM PANEL Bili Total 0.5 mg/dL 0.2 - 1.3 11/06/2017 [facility] CHEM PANEL eGFR 65 mL/min/1.73m2 11/06/2017 Result [...] should be multiplied by the estimated BMI. [facility] CHEM PANEL Potassium Lvl 4.2 meq/L 3.5 - 5.1 11/06/2017 [facility] CHEM PANEL Sodium Lvl 137 meq/L 135 - 145 11/06/2017 [facility] CHEM PANEL Creatinine Lvl 1.44 mg/dL 0.50 - 1.40 11/06/2017 [facility] CHEM PANEL Chloride Lvl 102 meq/L 95 - 109 11/06/2017 [facility] CHEM PANEL CO2 29 meq/L 24 - 32 11/06/2017 [facility] CHEM PANEL Glucose Lvl 158 mg/dL 70 - 99 11/06/2017 [facility] CHEM PANEL BUN 30 mg/dL 7 - 22 11/06/2017 [facility] CHEM PANEL Albumin Lvl 3.8 g/dL 3.5 - 5.0 11/06/2017 [facility] CHEM PANEL Total Protein 8.1 g/dL 6.4 - 8.4 11/06/2017 [facility] CHEM PANEL Calcium Lvl 9.1 mg/dL 8.5 - 10.5 11/06/2017 [facility] CHEM PANEL ALT 30 unit/L 0 - 65 11/06/2017 [facility] CHEM PANEL AST 21 unit/L 0 - 37 11/06/2017 [facility] CHEM PANEL A/G Ratio 0.9 0.7 - 1.6 11/06/2017 [place] CHEM PANEL B/C Ratio 21 6 - 25 11/06/2017 [facility] CHEM PANEL AGAP 10.2 meq/L 10.0 - 20.0 11/06/2017 [facility] CHEM PANEL Globulin 4.3 g/dL 2.7 - 4.2 11/06/2017 [facility] CHEM PANEL Phosphorus 4.6 mg/dL 2.5 - 4.5 11/06/2017 [facility] CHEM PANEL Magnesium Lvl 2.3 mg/dL 1.8 - 2.4 11/06/2017 [facility] HEMATOLOGY Lymphocytes # 3.2 K/CMM 1.0 - 5.5 11/06/2017 [facility] Segs-Bands # 7.0 K/CMM 1.5 - 8.1 11/06/2017 [facility] Monocytes # 0.8 K/CMM 0.0 - 0.8 11/06/2017 [facility] Basophils # 0.1 K/CMM 0.0 - 0.2 11/06/2017 [facility] Monocytes 7.5 % 2.0 - 12.0 11/06/2017 [facility] Basophils 0.6 % 0.0 - 1.0 11/06/2017 [facility] Eosinophils 0.3 % 0.0 - 4.0 11/06/2017 [facility] Segs 63.2 % 45.0 - 75.0 11/06/2017 [facility] Lymphocytes 28.4 % 20.0 - 40.0 11/06/2017 [facility] Platelet 317 K/CMM 133 - 450 11/06/2017 [facility] MPV 7.5 fL 7.4 - 10.4 11/06/2017 [facility] RDW 14.7 % 11.5 - 14.5 11/06/2017 [facility] MCHC 33.7 g/dL 32.0 - 36.0 11/06/2017 [facility] WBC 11.1 K/CMM 3.7 - 10.4 11/06/2017 [facility] Hct 43.6 % 42.0 - 54.0 11/06/2017 [facility] MCV 90.4 fL 80.0 - 94.0 11/06/2017 [facility] MCH 30.4 pg 27.0 - 31.0 11/06/2017 [facility] Hgb 14.7 g/dL 14.0 - 18.0 11/06/2017 [facility] HEMATOLOGY RBC 4.82 M/CMM 4.70 - 6.10 11/06/2017 [facility] CARDIAC ENZYMES Troponin-I 0.04 ng/mL 0.00 - 0.40 11/05/2017 [facility] CARDIAC ENZYMES Troponin-I 0.09 ng/mL 0.00 - 0.40 11/05/2017 [facility] Ext Lower Venous Doppler Bilat US Ext [...] the right or left lower extremity. SL: [id number] 11/05/2017 - - Read by: Roger Villela MD Dictated Date/time: 11/05/17 11:57 Electronically Signed by: Roger Villela MD 11/05/17 11:[address] [facility] CARDIAC ENZYMES Troponin-I 0.12 ng/mL 0.00 - 0.40 11/05/2017 [facility] DRUG SCREEN U Amph Scr Negative *NA* (11/05/17 4:52 AM) Negative 11/05/2017 [facility] DRUG SCREEN U Cannab Scr Negative *NA* (11/05/17 4:52 AM) Negative 11/05/2017 [facility] DRUG SCREEN U Cocaine Scr Negative *NA* (11/05/17 4:52 AM) Negative 11/05/2017 [facility] DRUG SCREEN U Opiate Scr Negative *NA* (11/05/17 4:52 AM) Negative 11/05/2017 [facility] DRUG SCREEN U Benzodia Scr Negative *NA* (11/05/17 4:52 AM) Negative 11/05/2017 [facility] DRUG SCREEN U Elizabeth Scr Negative *NA* (11/05/17 4:52 AM) Negative 11/05/2017 [facility] DRUG SCREEN UDS Note See Note *NA* (11/05/17 4:52 AM) 11/05/2017 [facility] DRUG SCREEN U Phencyc Scr Negative *NA* (11/05/17 4:52 AM) Negative 11/05/2017 [facility] URINE AND STOOL UA Mucus Few /LPF None Seen /LPF 11/05/2017 [facility] URINE AND STOOL UA WBC 2 /HPF 0 - 5 11/05/2017 [facility] URINE AND STOOL UA Leuk Est Negative (11/05/17 4:52 AM) Negative 11/05/2017 [facility] URINE AND STOOL UA Sq Epi Occasional /LPF Few /LPF 11/05/2017 [facility] URINE AND STOOL UA Blood Negative (11/05/17 4:52 AM) Negative 11/05/2017 [facility] URINE AND STOOL UA RBC 4 /HPF 0 - 2 11/05/2017 [facility] URINE AND STOOL UA Bili Negative *NA* (11/05/17 4:52 AM) Negative 11/05/2017 [facility] URINE AND STOOL UA Urobilinogen 4.0 mg/dL 0.1 - 1.0 11/05/2017 [facility] URINE AND STOOL UA Ketones Negative mg/dL Negative mg/dL 11/05/2017 [facility] URINE AND STOOL UA Nitrite Negative (11/05/17 4:52 AM) Negative 11/05/2017 [facility] URINE AND STOOL UA Protein 100 mg/dL Negative mg/dL 11/05/2017 [facility] URINE AND STOOL UA pH 5.0 5.0 - 8.0 11/05/2017 [facility] URINE AND STOOL UA Spec Grav 1.038 <=1.030 11/05/2017 [facility] URINE AND STOOL UA Turbidity Clear (11/05/17 4:52 AM) Clear 11/05/2017 [facility] URINE AND STOOL UA Glucose Negative mg/dL Negative mg/dL 11/05/2017 [facility] URINE AND STOOL UA Color Yellow *NA* (11/05/17 4:52 AM) Yellow 11/05/2017 [facility] CHEM PANEL Lactic Acid Lvl 1.7 mMol/L 0.5 - 2.2 11/05/2017 [facility] CARDIAC ENZYMES CK MB Index 1.1 0.0 - 2.5 11/05/2017 [facility] CARDIAC ENZYMES CK MB 7.4 ng/mL 0.5 - 3.6 11/05/2017 [facility] CARDIAC ENZYMES Total CK 666 unit/L 12 - 191 11/05/2017 [facility] CARDIAC ENZYMES proBNP 204 pg/mL 0 - 125 11/05/2017 [facility] CHEM PANEL A/G Ratio 0.8 0.7 - 1.6 11/05/2017 [facility] CHEM PANEL Alk Phos 78 unit/L 39 - 136 11/05/2017 [facility] CHEM PANEL AST 30 unit/L 0 - 37 11/05/2017 [facility] CHEM PANEL Total Protein 8.6 g/dL 6.4 - 8.4 11/05/2017 [facility] CHEM PANEL ALT 35 unit/L 0 - 65 11/05/2017 [facility] CHEM PANEL Albumin Lvl 3.7 g/dL 3.5 - 5.0 11/05/2017 [facility] CHEM PANEL Bili Total 0.4 mg/dL 0.2 - 1.3 11/05/2017 [facility] CHEM PANEL B/C Ratio 17 6 - 25 11/05/2017 [facility] CHEM PANEL Globulin 4.9 g/dL 2.7 - 4.2 11/05/2017 [facility] CHEM PANEL Lipase Lvl 197 unit/L 73 - 393 11/05/2017 [facility] HEMATOLOGY Lymphocytes 45.2 % 20.0 - 40.0 11/05/2017 [facility] HEMATOLOGY Segs 45.2 % 45.0 - 75.0 11/05/2017 [facility] HEMATOLOGY Eosinophils 1.9 % 0.0 - 4.0 11/05/2017 [facility] HEMATOLOGY Monocytes 7.1 % 2.0 - 12.0 11/05/2017 [facility] HEMATOLOGY Segs-Bands # 3.4 K/CMM 1.5 - 8.1 11/05/2017 [facility] HEMATOLOGY Basophils 0.6 % 0.0 - 1.0 11/05/2017 [facility] HEMATOLOGY Lymphocytes # 3.4 K/CMM 1.0 - 5.5 11/05/2017 [facility] HEMATOLOGY Monocytes # 0.5 K/CMM 0.0 - 0.8 11/05/2017 [facility] HEMATOLOGY Eosinophils # 0.1 K/CMM 0.0 - 0.5 11/05/2017 [facility] MPV 7.6 fL 7.4 - 10.4 11/05/2017 [facility] RBC 5.19 M/CMM 4.70 - 6.10 11/05/2017 [facility] WBC 7.5 K/CMM 3.7 - 10.4 11/05/2017 [facility] Hgb 15.9 g/dL 14.0 - 18.0 11/05/2017 [facility] MCV 89.6 fL 80.0 - 94.0 11/05/2017 [facility] Hct 46.6 % 42.0 - 54.0 11/05/2017 [facility] RDW 14.7 % 11.5 - 14.5 11/05/2017 [facility] MCHC 34.2 g/dL 32.0 - 36.0 11/05/2017 [facility] MCH 30.6 pg 27.0 - 31.0 11/05/2017 [facility] Platelet 298 K/CMM 133 - 450 11/05/2017 [facility] PTT 28.1 s 22.9 - 35.8 11/05/2017 [facility] INR 0.97 0.85 - 1.17 11/05/2017 [facility] PT 12.9 s 12.0 - 14.7 11/05/2017 [facility] Chest CTA Chest CTA CT THORAX: PE [...] material was used for the exam. Dose: [id number] mGy-cm FINDINGS: PULMONARY EMBOLISM: Extensive respiratory motion [...] Sharmin Harris MD 11/05/17 05:[address] [facility] Chest 1view DX Chest 1view DX Clinical [...] Ty Francisco MD 11/05/17 04:[address] [facility] Vital Signs Vital Sign Value Date Comments Source Respitory Rate 29 09/09/2018 [facility] Systolic (mm Hg) 133 09/09/2018 [facility] Diastolic (mm Hg) 96 09/09/2018 [facility] Respitory Rate 29 09/09/2018 [facility] Systolic (mm Hg) 150 09/09/2018 [facility] Diastolic (mm Hg) 101 09/09/2018 [facility] Respitory Rate 45 09/09/2018 [facility] Systolic (mm Hg) 137 09/09/2018 [facility] Diastolic (mm Hg) 95 09/09/2018 [facility] Temperature Oral (F) 98.7 F 09/09/2018 [facility] Temperature Oral (F) 98.7 F 09/09/2018 [facility] Height 180.34 cm 09/09/2018 [facility] Weight 133.3 09/09/2018 [facility] BMI Calculated 40.99 09/09/2018 [facility] Temperature Oral (F) 98.0 F 09/09/2018 [facility] Heart Rate 88 09/08/2018 [facility] Heart Rate 82 09/08/2018 [facility] Heart Rate 78 09/08/2018 [facility] BMI Calculated 38.57 09/08/2018 [facility] Height 180.34 cm 09/08/2018 [facility] Weight 125.455 09/08/2018 [facility] Systolic (mm Hg) 106 02/03/2018 [facility] Diastolic (mm Hg) 71 02/03/2018 [facility] Temperature Oral (F) 97.7 F 02/03/2018 [facility] Respitory Rate 18 02/03/2018 [facility] Heart Rate 85 02/03/2018 [facility] Heart Rate 69 02/03/2018 [facility] Temperature Oral (F) 98.5 F 02/03/2018 [facility] Respitory Rate 18 02/03/2018 [facility] Systolic (mm Hg) 86 02/03/2018 [facility] Diastolic (mm Hg) 52 02/03/2018 [facility] Respitory Rate 82 02/03/2018 [facility] Temperature Oral (F) 98.0 F 02/03/2018 [facility] Heart Rate 67 02/03/2018 [facility] Systolic (mm Hg) 125 02/03/2018 [facility] Diastolic (mm Hg) 75 02/03/2018 [facility] Weight 133.182 02/03/2018 [facility] Weight 131 02/01/2018 [facility] BMI Calculated 40.28 02/01/2018 [facility] Height 180.34 cm 02/01/2018 [facility] BMI Calculated 40.28 02/01/2018 [facility] Height 180.34 cm 02/01/2018 [facility] Weight 131 02/01/2018 [facility] BMI Calculated 30.19 01/31/2018 [facility] Height 180.34 cm 01/31/2018 [facility] Respitory Rate 18 01/09/2018 [facility] Heart Rate 78 01/09/2018 [facility] Systolic (mm Hg) 133 01/09/2018 [facility] Diastolic (mm Hg) 83 01/09/2018 [facility] Temperature Oral (F) 98.4 F 01/09/2018 [facility] Temperature Oral (F) 98.1 F 01/09/2018 [facility] Heart Rate 75 01/09/2018 [facility] Respitory Rate 18 01/09/2018 [facility] Systolic (mm Hg) 139 01/09/2018 [facility] Diastolic (mm Hg) 96 01/09/2018 [facility] Respitory Rate 16 01/09/2018 [facility] Temperature Oral (F) 97.8 F 01/09/2018 [facility] Systolic (mm Hg) 139 01/09/2018 [facility] Diastolic (mm Hg) 87 01/09/2018 [facility] Heart Rate 76 01/09/2018 [facility] BMI Calculated 43.76 01/06/2018 [facility] Weight 134.4 01/06/2018 [facility] Height 175.26 cm 01/06/2018 [facility] Height 180.34 cm 01/06/2018 [facility] BMI Calculated 41.2 01/06/2018 [facility] Weight 134 01/06/2018 [facility] Temperature Oral (F) 98.2 F 12/04/2017 [facility] Heart Rate 86 12/04/2017 [facility] Respitory Rate 18 12/04/2017 [facility] Systolic (mm Hg) 134 12/04/2017 [facility] Diastolic (mm Hg) 84 12/04/2017 [facility] Respitory Rate 18 12/04/2017 [facility] Systolic (mm Hg) 119 12/04/2017 [facility] Diastolic (mm Hg) 74 12/04/2017 [facility] Temperature Oral (F) 98.1 F 12/04/2017 [facility] Heart Rate 79 12/04/2017 [facility] Respitory Rate 18 12/04/2017 [facility] Temperature Oral (F) 98.4 F 12/04/2017 [facility] Systolic (mm Hg) 121 12/04/2017 [facility] Diastolic (mm Hg) 85 12/04/2017 [facility] Heart Rate 79 12/04/2017 [facility] Weight 142.591 12/03/2017 [facility] Height 180.34 cm 12/01/2017 [facility] Weight 133.8 12/01/2017 [facility] BMI Calculated 41.14 12/01/2017 [facility] Height 180.34 cm 12/01/2017 [facility] BMI Calculated 39.13 12/01/2017 [facility] Weight 127.273 12/01/2017 [facility] Systolic (mm Hg) 144 11/08/2017 [facility] Diastolic (mm Hg) 97 11/08/2017 [facility] Respitory Rate 19 11/08/2017 [facility] Heart Rate 82 11/08/2017 [facility] Temperature Oral (F) 98.5 F 11/08/2017 [facility] Respitory Rate 17 11/08/2017 [facility] Systolic (mm Hg) 145 11/08/2017 [facility] Diastolic (mm Hg) 94 11/08/2017 [facility] Heart Rate 82 11/08/2017 [facility] Respitory Rate 16 11/08/2017 [facility] Temperature Oral (F) 97.9 F 11/08/2017 [facility] Systolic (mm Hg) 125 11/08/2017 [facility] Diastolic (mm Hg) 84 11/08/2017 [facility] Temperature Oral (F) 98.1 F 11/08/2017 [facility] Heart Rate 76 11/08/2017 [facility] Weight 119.545 11/05/2017 [facility] BMI Calculated 36.76 11/05/2017 [facility] Height 180.34 cm 11/05/2017 [facility] Encounters Location Location Details Encounter Type Encounter Number Reason For Visit Attending Provider ADM Date DC Date Status Source [facility] Inpatient [id number] Ramos Dhamotharan 11/05/2017 11/08/2017 [facility] Inpatient [id number] Sunny Ajibade 12/01/2017 12/04/2017 [facility] Inpatient [id number] Sunny Ajibade 01/06/2018 01/09/2018 [facility] Inpatient [id number] Jonathan Warren 01/31/2018 02/04/2018 [facility] Inpatient [id number] Ramos Dhamotharan 09/08/2018 09/09/2018 [facility] Procedures Procedure Code Date Perfomer Comments Source Ankle joint operations [id number] [facility] Knee joint operation [id number] Jair
--- OUTSIDE RECORDS SUMMARY | 2018-09-20 13:23 | XMS REPORT | Summary of Care ---
Author Author [facility] Organization [facility] Address Unknown Phone Unavailable Encounter CARINE Gage(ALEX) [id number] Date(s): 09/08/18 - 09/09/18 [facility] [address] [place] [address]- S [phone] Discharge Disposition: Left Against Medical Advise Attending Physician: Ramos Pal MD Admitting Physician: Ramos Pal MD Vital Signs 1 2 3 Most recent to oldest [Reference Range]: 180.34 cm (09/08/18 10:30 PM) 180.34 cm (09/08/18 9:14 AM) Height 98.7 DegF (09/09/18 4:00 AM) 98.7 DegF (09/09/18 12:00 AM) 98.0 DegF (09/08/18 10:00 PM) Temperature Oral [96.4-99.1 DegF] 133/96 mmHg (09/09/18 9:00 AM) 150/101 mmHg *HI* (09/09/18 8:00 AM) 137/95 mmHg (09/09/18 7:00 AM) Blood Pressure [90-140/60-90 mmHg] 29 BRMIN *HI* (09/09/18 9:00 AM) 29 BRMIN *HI* (09/09/18 8:00 AM) 45 BRMIN *HI* (09/09/18 7:00 AM) Respiratory Rate [14-20 BRMIN] 88 bpm (09/08/18 3:00 PM) 82 bpm (09/08/18 1:00 PM) 78 bpm (09/08/18 11:08 AM) Peripheral Pulse Rate [60-100 bpm] 133.3 kg (09/08/18 10:30 PM) 125.455 kg (09/08/18 9:14 AM) Weight 40.99 m2 (09/08/18 10:30 PM) 38.57 m2 (09/08/18 9:14 AM) Body Mass Index Problem List Condition Effective Dates Status Health Status Informant Hypertension(Confirm Resolved ed) Type II diabetes Active mellitus poorly controlled(Confirmed ) Allergies, Adverse Reactions, Alerts Substance Reaction Severity Status lisinopril Active Medications albuterol-ipratropium 2.5-0.5 mg inhalation solution 3 mL, Route: NEB, Drug Form: SOLN, Dosing Weight 125.455, kg, Q4H, Start date: 0 09/08/18 16:00:00 [employer], Duration: 30 day, Stop date: 10/08/18 12:00:00 [employer] Notes: (Same as: Duoneb) Start Date: 09/08/18 Stop Date: 09/09/18 Status: Discontinued aspirin 81 mg tablet, chewable 81 mg, Route: PO, Drug form: CHEWTAB, Daily, Dosing Weight 133.3, kg, Start date : 09/10/18 9:00:00 [employer] W[employer]ER, Duration: 30 day, Stop date: 10/09/18 9:00:00 [employer]ER Start Date: 09/10/18 Stop Date: 09/09/18 Status: Canceled aspirin 81 mg tablet, enteric coated 81 mg, 1 tab, Route: PO, Drug form: ECTAB, Daily, Dosing Weight 133.3, kg, Start date: 09/09/18 9:00:00 [employer] W[employer]ER, Duration: 30 day, Stop date: 10/08/18 9:00:00 [employer] W[employer]ER Notes: Do not crush or chew.(Same As: Ecotrin) Start Date: 09/09/18 Stop Date: 09/09/18 Status: Discontinued Ativan 0.5 mg, Route: IVP, Drug form: INJ, ONCE, Dosing Weight 125.455, kg, Priority: S TAT, Start date: 09/08/18 12:50:00 LO[employer] W[employer]ER, Stop date: 09/08/18 12:50:00 LOOM W[employer]ER Start Date: 09/08/18 Stop Date: 09/08/18 Status: Completed Ativan 1 mg oral tablet 1 mg=1 tab, PO, Q4H, PRN Anxiaty, 0 Refill(s) Start Date: 09/08/18 Status: Suspended atorvastatin 20 mg, 2 tab, Route: PO, Drug form: TAB, Bedtime, Dosing Weight 133.3, kg, Start date: 09/09/18 21:00:00 [employer]ER, Duration: 30 day, Stop date: 10/08/18 21:00:00 LO[employer] W[employer]ER [employer]ENDER Notes: (Same As: Lipitor) Start Date: 09/09/18 Stop Date: 09/09/18 Status: Canceled budesonide 0.5 mg/2 mL inhalation suspension 0.5 mg, 2 mL, Route: NEB, Drug form: SUSP, BID, Dosing Weight 125.455, kg, Start date: 09/08/18 17:00:00 [employer]ER, Duration: 30 day, Stop date: 10/08/18 9:00:00 LOOM WINDER TENDER, <12 years; Pediatric Dosing Notes: (Same As: Pulmicort) Start Date: 09/08/18 Stop Date: 09/09/18 Status: Discontinued carvedilol 12.5 mg, 1 tab, Route: PO, Drug form: TAB, Q12H, Dosing Weight 133.3, kg, Start date: 09/09/18 9:00:00 LO[employer] W[employer]ER, Duration: 30 day, Stop date: 10/08/18 21:00:00 [employer] W[employer]ER Notes: Give with food. (Same As: Coreg) Start Date: 09/09/18 Stop Date: 09/09/18 Status: Discontinued Dextrose 50% Syringe 25 gm, 50 mL, Route: IVP, Drug Form: INJ, Dosing Weight 125.455, kg, PRN, PRN Bl ood Glucose Results, Start date: 09/08/18 15:29:00 [employer], Duration: 30 day, Stop d ate: 10/08/18 15:28:00 LO[employer] W[employer]ER Start Date: 09/08/18 Stop Date: 09/09/18 Status: Discontinued Dextrose 50% Syringe 12.5 gm, 25 mL, Route: IVP, Drug Form: INJ, Dosing Weight 125.455, kg, PRN, PRN Blood Glucose Results, Start date: 09/08/18 15:29:00 LO[employer] W[employer]ER, Duration: 30 day, Stop date: 10/08/18 15:28:00 LO[employer] W[employer]ER Start Date: 09/08/18 Stop Date: 09/09/18 Status: Discontinued fentaNYL 50 microgram, Route: IVP, ONCE, Dosing Weight 125.455, kg, Priority: STAT, Start date: 09/08/18 9:52:00 LOOM W[employer]ENDER, Stop date: 09/08/18 9:52:00 LO[employer] W[employer]ER Start Date: 09/08/18 Stop Date: 09/08/18 Status: Completed glucagon 1 mg, Route: IM, Drug form: PDR/INJ, PRN, Dosing Weight 125.455, kg, PRN Blood G lucose Results, Start date: 09/08/18 15:29:00 LO[employer] W[employer]ER, Duration: 30 day, Stop date: 10/08/18 15:28:00 LOOM W[employer] TENDER Start Date: 09/08/18 Stop Date: 09/09/18 Status: Discontinued heparin 5,000 unit, 1 mL, Route: SUB-Q, Drug form: INJ, Q8H, Dosing Weight 125.455, kg, Start date: 09/09/18 0:00:00 LO[employer] W[employer]ER, Duration: 30 day, Stop date: 10/08/18 16:00:00 LO[employer] W[employer]ER Notes: porcine heparin Start Date: 09/09/18 Stop Date: 09/09/18 Status: Discontinued insulin lispro 2 unit, 0.02 mL, Route: SUB-Q, Drug form: SOLN, TID-Before Meals, Dosing Weight 125.455, kg, PRN Blood Glucose Results, Start date: 09/08/18 15:29:00 [employer] W[employer]ER, Durat ion: 30 day, Stop date: 10/08/18 15:28:00 LO[employer] W[employer] TENDER Notes: (Same as: Humalog ) Roll in palms of hands gently; Do not shake `vigorou sly. "Single Patient Use Only " WASTE: F/P - Black; E - [employer] [address] able for 28 days at room temperature.Expires in days from Da te Start Date: 09/08/18 Stop Date: 09/09/18 Status: Discontinued insulin lispro 4 unit, 0.04 mL, Route: SUB-Q, Drug form: SOLN, TID-Before Meals, Dosing Weight 125.455, kg, PRN Blood Glucose Results, Start date: 09/08/18 15:29:00 LO[employer] W[employer]ER, Durat ion: 30 day, Stop date: 10/08/18 15:28:00 LOOM W[employer]ER TENDER Notes: (Same as: Humalog ) Roll in palms of hands gently; Do not shake `vigorou sly. "Single Patient Use Only " WASTE: F/P - Black; E - [employer] [address] [address] able for 28 days at room temperature.Expires in days from Da te Start Date: 09/08/18 Stop Date: 09/09/18 Status: Discontinued insulin lispro 10 unit, 0.1 mL, Route: SUB-Q, Drug form: SOLN, TID-Before Meals, Dosing Weight 125.455, kg, PRN Blood Glucose Results, Start date: 09/08/18 15:29:00 LOOM W[employer]ENDER, Durat ion: 30 day, Stop date: 10/08/18 15:28:00 LOOM W[employer]ER TENDER Notes: (Same as: Humalog ) Roll in palms of hands gently; Do not shake `vigorou sly. "Single Patient Use Only " WASTE: F/P - Black; E - [employer] [address] [address] able for 28 days at room temperature.Expires in days from Da te Start Date: 09/08/18 Stop Date: 09/09/18 Status: Discontinued insulin lispro 6 unit, 0.06 mL, Route: SUB-Q, Drug form: SOLN, TID-Before Meals, Dosing Weight 125.455, kg, PRN Blood Glucose Results, Start date: 09/08/18 15:29:00 LOOM W[employer]ER, Durat ion: 30 day, Stop date: 10/08/18 15:28:00 LOOM WINDER TENDER Notes: (Same as: Humalog ) Roll in palms of hands gently; Do not shake `vigorou sly. "Single Patient Use Only " WASTE: F/P - Black; E - [facility] [address] [address] able for 28 days at room temperature.Expires in days from Da te Start Date: 09/08/18 Stop Date: 09/09/18 Status: Discontinued insulin lispro 8 unit, 0.08 mL, Route: SUB-Q, Drug form: SOLN, TID-Before Meals, Dosing Weight 125.455, kg, PRN Blood Glucose Results, Start date: 09/08/18 15:29:00 LOOM W[employer]ER, Durat ion: 30 day, Stop date: 10/08/18 15:28:00 LOOM WINDER TENDER Notes: (Same as: Humalog ) Roll in palms of hands gently; Do not shake `vigorou sly. "Single Patient Use Only " WASTE: F/P - Black; E - [facility] [address] [address] able for 28 days at room temperature.Expires in days from Da te Start Date: 09/08/18 Stop Date: 09/09/18 Status: Discontinued insulin lispro 4 unit, 0.04 mL, Route: SUB-Q, Drug form: SOLN, Bedtime, Dosing Weight 125.455, kg, PRN Blood Glucose Results, Start date: 09/08/18 15:29:00 LOOM W[employer]ER TENDER, Duration: 30 d ay, Stop date: 10/08/18 15:28:00 LOOM WINDER TENDER Notes: (Same as: Humalog ) Roll in palms of hands gently; Do not shake `vigorou sly. "Single Patient Use Only " WASTE: F/P - Black; E - [facility] [address] [address] able for 28 days at room temperature.Expires in days from Da te Start Date: 09/08/18 Stop Date: 09/09/18 Status: Discontinued insulin lispro 2 unit, 0.02 mL, Route: SUB-Q, Drug form: SOLN, Bedtime, Dosing Weight 125.455, kg, PRN Blood Glucose Results, Start date: 09/08/18 15:29:00 LOOM W[employer]ER TENDER, Duration: 30 d ay, Stop date: 10/08/18 15:28:00 LOOM WINDER TENDER Notes: (Same as: Humalog ) Roll in palms of hands gently; Do not shake `vigorou sly. "Single Patient Use Only " WASTE: F/P - Black; E - [facility] [address] [address] able for 28 days at room temperature.Expires in days from Da te Start Date: 09/08/18 Stop Date: 09/09/18 Status: Discontinued insulin lispro 3 unit, 0.03 mL, Route: SUB-Q, Drug form: SOLN, Bedtime, Dosing Weight 125.455, kg, PRN Blood Glucose Results, Start date: 09/08/18 15:29:00 LOOM W[employer]ER TENDER, Duration: 30 d ay, Stop date: 10/08/18 15:28:00 LOOM WINDER TENDER Notes: (Same as: Humalog ) Roll in palms of hands gently; Do not shake `vigorou sly. "Single Patient Use Only " WASTE: F/P - Black; E - [facility] [address] [address] able for 28 days at room temperature.Expires in days from Da te Start Date: 09/08/18 Stop Date: 09/09/18 Status: Discontinued insulin lispro 1 unit, 0.01 mL, Route: SUB-Q, Drug form: SOLN, Bedtime, Dosing Weight 125.455, kg, PRN Blood Glucose Results, Start date: 09/08/18 15:29:00 LOOM W[employer]ER TENDER, Duration: 30 d ay, Stop date: 10/08/18 15:28:00 LOOM WINDER TENDER Notes: (Same as: Humalog ) Roll in palms of hands gently; Do not shake `vigorou sly. "Single Patient Use Only " WASTE: F/P - Black; E - [facility] [address] able for 28 days at room temperature.Expires in days from Da te Start Date: 09/08/18 Stop Date: 09/09/18 Status: Discontinued Lasix 40 mg, Route: IVP, Drug form: INJ, BID Diuretic, Dosing Weight 133.3, kg, Start date: 09/09/18 16:00:00 LO[employer] W[employer]ER, Duration: 30 day, Stop date: 10/09/18 8:00:00 LOOM W[employer] TENDER Start Date: 09/09/18 Stop Date: 09/09/18 Status: Canceled Lasix 40 mg, Route: IVP, Drug form: INJ, BID Diuretic, Dosing Weight 125.455, kg, Star t date: 09/09/18 8:00:00 LOOM W[employer] TENDER, Duration: 30 day, Stop date: 10/08/18 16:00:00 LOOM W[employer]ER TENDER Start Date: 09/09/18 Stop Date: 09/08/18 Status: Deleted Lasix 80 mg, 8 mL, Route: IVP, Drug form: INJ, ONCE, Dosing Weight 125.455, kg, Priori ty: STAT, Start date: 09/08/18 14:31:00 LOOM W[employer] TENDER, Stop date: 09/08/18 14:31:00 LOOM WINDER TENDER Notes: (Same as: Lasix) MEDICATION WASTE Product Size: 40 mgProduct Was leeanne: ___ mg Start Date: 09/08/18 Stop Date: 09/08/18 Status: Completed Lasix 40 mg oral tablet 40 mg, 1 tab, Route: PO, Drug form: TAB, BID Diuretic, Dosing Weight 133.3, kg, Start date: 09/09/18 8:00:00 LOOM W[employer] T[employer]ER, Duration: 30 day, Stop date: 10/08/18 16:00:00 LOOM WINDER TENDER Notes: (Same as: Lasix) May cause GI upset. Give with food or milk. Start Date: 09/09/18 Stop Date: 09/09/18 Status: Discontinued methylPREDNISolone SODium SUCCinate 40 mg, 1 mL, Route: IVP, Drug form: INJ, Q8H, Dosing Weight 125.455, kg, Start d ate: 09/08/18 16:00:00 LOOM W[employer]ER TENDER, Duration: 5 day, Stop date: 09/13/18 8:00:00 LOOM WINDER TENDER Notes: (Same as:Solu-MEDROL, A-Methapred) Start Date: 09/08/18 Stop Date: 09/08/18 Status: Discontinued metoprolol extended release 25 mg, Route: PO, Drug form: ERTAB, Daily, Start date: 09/10/18 9:00:00 LOOM W[employer] TENDER, Dur ation: 30 day, Stop date: 10/09/18 9:00:00 LOOM W[employer]ER TENDER Start Date: 09/10/18 Stop Date: 09/09/18 Status: Canceled morphine Sulfate 2 mg, 0.5 mL, Route: IVP, Drug form: SOLN, Q4H, Dosing Weight 125.455, kg, PRN P ain Score 7-10, Start date: 09/08/18 16:05:00 LOOM W[employer] T[employer]ER, Duration: 30 day, Stop date: 10/08/18 16:04:00 LOOM WINDER TENDER Notes: (Same as:MORPhine Sulfate) Start Date: 09/08/18 Stop Date: 09/09/18 Status: Discontinued morphine Sulfate 4 mg, 1 mL, Route: IVP, Drug form: SOLN, ONCE, Dosing Weight 125.455, kg, Priori ty: STAT, Start date: 09/08/18 16:05:00 LOOM WINDER TENDER, Stop date: 09/08/18 16:05:00 LOOM WINDER TENDER Notes: (Same as:MORPhine Sulfate) Start Date: 09/08/18 Stop Date: 09/08/18 Status: Completed Pepcid 20 mg, 1 tab, Route: PO, Drug form: TAB, BID, Dosing Weight 125.455, kg, Start d ate: 09/08/18 17:00:00 LOOM W[employer]ER TENDER, Duration: 30 day, Stop date: 10/08/18 9:00:00 LOOM WINDER TENDER Notes: (Same as: Pepcid) Start Date: 09/08/18 Stop Date: 09/09/18 Status: Discontinued Saline Flush 0.9% 10 mL, Route: IVP, Drug Form: INJ, Dosing Weight 131.182, kg, PRN, PRN Line Flus h, Start date: 09/08/18 9:13:00 LOOM W[employer]ER TENDER, Duration: 30 day, Stop date: 10/08/18 9:12: 00 LOOM WINDER TENDER Notes: preservative free. Start Date: 09/08/18 Stop Date: 09/09/18 Status: Discontinued Sodium Chloride 0.9% IV 1,000 mL 1,000 mL, Rate: 75 ml/hr, Infuse over: 13.3 hr, Route: IV, Dosing Weight 133.3 k g, Total Volume: 1,000, Start date: 09/09/18 9:20:00 LOOM WINDER TENDER, Duration: 30 day, Stop date: 10/09/18 9:19:00 LOOM WINDER TENDER, 2.62, m2 Start Date: 09/09/18 Stop Date: 09/09/18 Status: Discontinued Results ELECTROLYTES 1 2 3 Most recent to oldest [Reference Range]: 132 mEq/L *LOW* (09/09/18 5:05 AM) 136 mEq/L (09/08/18 9:44 AM) Sodium Lvl [135-145 mEq/L] 5.0 mEq/L (09/09/18 5:05 AM) 4.4 mEq/L (09/08/18 9:44 AM) Potassium Lvl [3.5-5.1 mEq/L] 95 mEq/L (09/09/18 5:05 AM) 99 mEq/L (09/08/18 9:44 AM) Chloride Lvl [95-109 mEq/L] 33 mEq/L *HI* (09/09/18 5:05 AM) 32 mEq/L (09/08/18 9:44 AM) CO2 [24-32 mEq/L] 9.0 mEq/L *LOW* (09/09/18 5:05 AM) 9.4 mEq/L *LOW* (09/08/18 9:44 AM) AGAP [10.0-20.0 mEq/L] CHEM PANEL 1 2 3 Most recent to oldest [Reference Range]: 1.45 mg/dL *HI* (09/09/18 5:05 AM) 0.96 mg/dL (09/08/18 9:44 AM) Creatinine Lvl [0.50-1.40 mg/dL] 64 mL/min/1.73m2 1 *NA* (09/09/18 5:05 AM) 106 mL/min/1.73m2 2 *NA* (09/08/18 9:44 AM) eGFR 19 mg/dL (09/09/18 5:05 AM) 13 mg/dL (09/08/18 9:44 AM) BUN [7-22 mg/dL] 14 (09/08/18 9:44 AM) B/C Ratio [6-25] 412 mg/dL 3 *CRIT* (09/09/18 5:05 AM) 235 mg/dL *HI* (09/08/18 9:44 AM) Glucose Lvl [70-99 mg/dL] 8.2 g/dL (09/08/18 9:44 AM) Total Protein [6.4-8.4 g/dL] 3.9 g/dL (09/08/18 9:44 AM) Albumin Lvl [3.5-5.0 g/dL] 4.3 g/dL *HI* (09/08/18 9:44 AM) Globulin [2.7-4.2 g/dL] 0.9 (09/08/18 9:44 AM) A/G Ratio [0.7-1.6] 9.1 mg/dL (09/09/18 5:05 AM) 9.0 mg/dL (09/08/18 9:44 AM) Calcium Lvl [8.5-10.5 mg/dL] 5.2 mg/dL *HI* (09/09/18 5:05 AM) Phosphorus [2.5-4.5 mg/dL] 2.3 mg/dL (09/09/18 5:05 AM) Magnesium Lvl [1.8-2.4 mg/dL] 21 unit/L (09/08/18 9:44 AM) ALT [0-65 unit/L] 11 unit/L (09/08/18 9:44 AM) AST [0-37 unit/L] 78 unit/L (09/08/18 9:44 AM) Alk Phos [39-136 unit/L] 0.5 mg/dL (09/08/18 9:44 AM) Bili Total [0.2-1.3 mg/dL] 1Result Comment: [...] tiplied by the estimated BMI. 3Result Comment: Critical Result(s) called to CHARU _ at09/09/2018 06:03 _ by_pb. Read back OK. CARDIAC ENZYMES 1 2 3 Most recent to oldest [Reference Range]: 2.4 ng/mL (09/09/18 12:00 AM) 3.1 ng/mL (09/08/18 6:04 PM) CK MB [0.5-3.6 ng/mL] 0.04 ng/mL (09/09/18 12:00 AM) 0.06 ng/mL (09/08/18 6:04 PM) 0.08 ng/mL (09/08/18 12:20 PM) Troponin-I [0.00-0.40 ng/mL] 68 pg/mL (09/08/18 9:44 AM) BNP [<=100 pg/mL] 265 pg/mL *HI* (09/08/18 9:44 AM) proBNP [0-125 pg/mL] HEMATOLOGY 1 2 3 Most recent to oldest [Reference Range]: 6.9 K/CMM (09/09/18 5:05 AM) 5.9 K/CMM (09/08/18 9:44 AM) WBC [3.7-10.4 K/CMM] 5.05 M/CMM (09/09/18 5:05 AM) 5.32 M/CMM (09/08/18 9:44 AM) RBC [4.70-6.10 M/CMM] 15.0 g/dL (09/09/18 5:05 AM) 15.9 g/dL (09/08/18 9:44 AM) Hgb [14.0-18.0 g/dL] 46.4 % (09/09/18 5:05 AM) 47.2 % (09/08/18 9:44 AM) Hct [42.0-54.0 %] 91.8 fL (09/09/18 5:05 AM) 88.7 fL (09/08/18 9:44 AM) MCV [80.0-94.0 fL] 29.6 pg (09/09/18 5:05 AM) 29.8 pg (09/08/18 9:44 AM) MCH [27.0-31.0 pg] 32.2 g/dL (09/09/18 5:05 AM) 33.6 g/dL (09/08/18 9:44 AM) MCHC [32.0-36.0 g/dL] 15.6 % *HI* (09/09/18 5:05 AM) 15.2 % *HI* (09/08/18 9:44 AM) RDW [11.5-14.5 %] 7.7 fL (09/09/18 5:05 AM) 7.8 fL (09/08/18 9:44 AM) MPV [7.4-10.4 fL] 288 K/CMM (09/09/18 5:05 AM) 246 K/CMM (09/08/18 9:44 AM) Platelet [133-450 K/CMM] 75.1 % *HI* (09/09/18 5:05 AM) 53.5 % (09/08/18 9:44 AM) Segs [45.0-75.0 %] 18.7 % *LOW* (09/09/18 5:05 AM) 35.5 % (09/08/18 9:44 AM) Lymphocytes [20.0-40.0 %] 5.8 % (09/09/18 5:05 AM) 8.6 % (09/08/18 9:44 AM) Monocytes [2.0-12.0 %] 1.8 % (09/08/18 9:44 AM) Eosinophils [0.0-4.0 %] 0.4 % (09/09/18 5:05 AM) 0.6 % (09/08/18 9:44 AM) Basophils [0.0-1.0 %] 5.2 K/CMM (09/09/18 5:05 AM) 3.2 K/CMM (09/08/18 9:44 AM) Neutrophils # [1.5-8.1 K/CMM] 1.3 K/CMM (09/09/18 5:05 AM) 2.1 K/CMM (09/08/18 9:44 AM) Lymphocytes # [1.0-5.5 K/CMM] 0.4 K/CMM (09/09/18 5:05 AM) 0.5 K/CMM (09/08/18 9:44 AM) Monocytes # [0.0-0.8 K/CMM] 0.1 K/CMM (09/08/18 9:44 AM) Eosinophils # [0.0-0.5 K/CMM] 0.34 ug/mL FEU *NA* (09/08/18 9:44 AM) D-Dimer BACTERIAL - SEROLOGY 1 2 3 Most recent to oldest [Reference Range]: Negative (09/08/18 10:25 PM) MRSA by PCR Immunizations Given and Recorded Vaccine Date Status Refusal Reason pneumococcal 23-valent vaccine 02/01/18 Given Procedures Procedure Date Related Diagnosis Body Site Status Ankle joint operations Completed Knee joint operation Completed Social History Social History Type Response Alcohol Past, Type Wine. Frequency: 1-2 times per week. [...] Reg Smoking Cessation Counseling No entered on: 09/08/18 Assessment and Plan Extracted from: Title: Discharge Summary * Author: Taiwo Hester MD Date: 09/09/18 Discharge Plan Discharge Summary Plan Discharge Status: Patient left AMA. Extracted from: Title: Cardiology Consult Note, Author: Kyle Felder MD Date: 09/09/18 Complex Impression and Plan Chest pain SOB HTN Diastoic CHF ZION - No evidence of ACS - Mild LV dysfnx with EF 40-45% and dastolic CHF - Would recommend gentle diuresis with lasix 40 mg IV daily - His CXR does not show significant pulm lyn, SOB most likely due to underlying pulm etiology, ZION and hypoventilation - At this time BP and HR are in acceptable range. - Would start pt on metop 25 mg daily - Can cont with asa 81 mg daily Thank you. Cardiology will follow. Extracted from: Title: General Admission H&P * Author: Taiwo Hester MD Date: 09/08/18 Impression and Plan Assessment: Acute hypercapnic respiratory failure requiring NIPPV Chest pain rule out ACS History of chronic diastolic CHF with an EF of 50-55% Hypertension ZION Morbid obesity Plan: Admit to IMCU BiPAP Repeat ABG 2 hours after BiPAP applied and adjust as needed PRN pain medications for chest pain Cardiac enzymes x3 sets EKG for any recurrent chest pain Nitro glycerin sublingual as needed for chest pain CTA of the chest to rule out any intrathoracic etiology for chest pain as previous echo there was an aortic dilation 4.4 cm Echocardiogram Duo nebs/budesonide Solu-Medrol 40 mg every 8 hours Pepcid twice daily for GI prophylaxis Insulin sliding scale Critical care consultation Cardiology consultation DVT prophylaxis: Heparin subcutaneously Disposition: Continue current management follow clinical course
[2018-09-20] MEDS ORDERED: ALBUTEROL/IPRATROPIUM 3 ML NEB NEB ONE (15:20)
--- NOTE | 2018-09-20 16:18 | Diagnostic Imaging Report ---
EXAMINATION: PA and lateral views of the chest. COMPARISON: None CLINICAL HISTORY: Shortness of breath DISCUSSION: Lines/tubes: None. Lungs: The lungs are well inflated and clear. No pneumonia or pulmonary edema. Pleura: No pleural effusion or pneumothorax. Heart and mediastinum: The cardiomediastinal silhouette is normal. Bones and soft tissues: No acute bony abnormalities. IMPRESSION: No acute cardiopulmonary abnormalities. Signed by: Dr. Steven Germain M.D. on 09/20/2018 4:15 PM
[2018-09-20 17:43] LABS: ABG PCO2 80 mmHg (41-51); ABG PH 7.19 (7.31-7.41); ABG PO2 74 mmHg (80-105)
[2018-09-20 17:44] LABS: ABG HCO3 31 mmol/L (23-28)
[2018-09-20 17:51] LABS: CLARITY,URINE SL CLOUDY (CLEAR); COLOR,URINE YELLOW (YELLOW)
[2018-09-20 17:52] LABS: AMPHETAMINES SCREEN,URINE NEGATIVE (NEGATIVE); BENZODIAZEPINES SCREEN,URINE POSITIVE (NEGATIVE); BILIRUBIN,URINE NEGATIVE (NEGATIVE); KETONES,URINE NEGATIVE (NEGATIVE); LEUKOCYTE ESTERASE ,URINE NEGATIVE (NEGATIVE); NITRITE,URINE NEGATIVE (NEGATIVE); PHENCYCLIDINE SCREEN,URINE NEGATIVE (NEGATIVE); PROTEIN,URINE DIPSTICK 1+ (NEGATIVE); URINE UROBILINOGEN 0.2 mg/dL (0.2 - 1)
[2018-09-20 18:00] LABS: AMORPHOUS SEDIMENT,URINE FEW (FEW); BACTERIA,URINE MODERATE /HPF; EPITHELIAL CELLS,URINE FEW /LPF; HYALINE CASTS 0-1 (0-1); MUCUS,URINE MODERATE (RARE)
--- NOTE | 2018-09-20 18:06 | NUR ---
Respiratory contacted to place pt on Bipap
[2018-09-20] MEDS ORDERED: ONDANSETRON HCL INJ 2MG/ML 2ML 2 MG/ML VIAL IV PRN (18:15)
[2018-09-20] MEDS ORDERED: ASPIRIN 81 MG CHEW TAB PO ONE (18:15)
[2018-09-20] MEDS ORDERED: SODIUM CHLORIDE FLUSH 10 ML SYR INJ PRN (18:15)
[2018-09-20] MEDS ORDERED: NALOXONE HCL INJ 0.4 MG/ML AMP IV ONE (18:15)
--- NOTE | 2018-09-20 18:25 | NUR ---
NOTED LAB NOT DRAWN; BLOOD DRAWN AND SENT TO LAB
--- NOTE | 2018-09-20 18:34 | Diagnostic Imaging Report ---
EXAMINATION: Head CT HISTORY: Standard speech, altered mental status COMPARISON: None. TECHNIQUE: Multidetector axial images were obtained without contrast from the foramen magnum to the vertex . The images were reconstructed using brain and bone algorithms. Thin section brain images were reformatted into coronal and sagittal planes. Image quality: Motion/streaking artifact limits the evaluation of the skull base and posterior cranial fossa. Dose modulation, iterative reconstruction, and/or weight based adjustment of the mA/kV was utilized to reduce the radiation dose to as low as reasonably achievable. FINDINGS: Parenchyma: 1. Few scattered white matter hypodensities, most likely nonspecific chronic microvascular ischemic changes. 2. No mass or hemorrhage. No CT evidence of acute territorial vascular insult. Extra-axial spaces:No abnormal density. No extra-axial fluid collections Brain volume: Normal for age. Ventricles: No hydrocephalus or displacement. Arteries: No density suggestive of thrombus. Dural sinuses: No abnormal density. Extra-axial spaces: No abnormal density. Foramen magnum: No mass, Chiari malformation, or basilar invagination. Sella: No obvious mass. Paranasal/mastoid sinuses: Imaged portions unremarkable. Skull/Scalp: No lytic or blastic lesions. No fractures. IMPRESSION: 1. No acute intracranial hemorrhage or cortical infarct. 2. Mild chronic microvascular ischemic changes. Signed by: Dr. Karis Vazquez M.D. on 09/20/2018 6:31 PM
[2018-09-20 18:51] LABS: BASOPHILS % 0.1 % (0.0-1.0); EOSINOPHILS % 0.5 % (0.0-6.0); HEMATOCRIT 45.8 % (38.2-49.6); HEMOGLOBIN 14.4 g/dL (14.0-18.0); LYMPHOCYTES # (AUTO) 2.6 (1.0-3.2); LYMPHOCYTES % 33.5 % (18.0-39.1); MEAN CORPUSCULAR HEMOGLOBIN 29.2 pg (28-32); MEAN CORPUSCULAR HGB CONC 31.4 g/dL (31-35); MEAN CORPUSCULAR VOLUME 92.9 fL (81-99); MONOCYTES # (AUTO) 0.8 (0.2-0.8); MONOCYTES % 9.9 % (4.4-11.3); NEUTROPHILS # (AUTO) 4.3 (2.1-6.9); NEUTROPHILS % 55.5 % (38.7-80.0); PLATELET COUNT 258 x10e3/uL (140-360); RED BLOOD COUNT 4.93 x10e6/uL (4.3-5.7); RED CELL DISTRIBUTION WIDTH 14.6 % (11.7-14.4)
[2018-09-20 19:09] LABS: ALBUMIN 4.1 g/dL (3.5-5.0); ALBUMIN/GLOBULIN RATIO 1.2 (0.8-2.0); ANION GAP 20.1 mmol/L (8-16); CALCIUM 9.6 mg/dL (8.4-10.2); CREATININE, SERUM 1.49 mg/dL (0.72-1.25); POTASSIUM 5.1 mmol/L (3.5-5.1)
[2018-09-20 19:16] LABS: CREATINE KINASE MB 2.2 ng/mL (0-5.0)
[2018-09-20 21:35] LABS: ABG PH 7.23 (7.31-7.41)
[2018-09-20 21:36] LABS: ABG HCO3 33 mmol/L (23-28); ABG PCO2 77 mmHg (41-51); ABG PO2 102 mmHg (80-105)
[2018-09-20] MEDS ORDERED: DEXTROSE 50% SYRINGE 50 ML IV PRN ×2 (23:15)
--- NOTE | 2018-09-20 23:55 | NUR ---
Received to 197 from ER. Placed on EKG, pulse ox & NBP for monitoring. Admission history, family history & Initial admission assessment completed. See interventions.
[2018-09-21] VITALS (9 sets, daily range): BP systolic 125–143; BP diastolic 69–101
[2018-09-21] MEDS: INSULIN LISPRO 100 UNIT/1 ML 3ML VIAL SQ SCH ×4 (00:26→17:43)
[2018-09-21 02:58] LABS: CREATINE KINASE MB 2.3 ng/mL (0-5.0)
[2018-09-21] MEDS: ALBUTEROL/IPRATROPIUM 3 ML NEB NEB SCH ×6 (03:00→23:00)
[2018-09-21 06:27] LABS: BASOPHILS % 0.3 % (0.0-1.0); EOSINOPHILS # (AUTO) 0.1 (0.0-0.4); HEMATOCRIT 45.5 % (38.2-49.6); HEMOGLOBIN 14.1 g/dL (14.0-18.0); LYMPHOCYTES # (AUTO) 2.2 (1.0-3.2); LYMPHOCYTES % 35.3 % (18.0-39.1); MEAN CORPUSCULAR HEMOGLOBIN 28.8 pg (28-32); MEAN CORPUSCULAR VOLUME 92.9 fL (81-99); MONOCYTES # (AUTO) 0.6 (0.2-0.8); MONOCYTES % 9.9 % (4.4-11.3); NEUTROPHILS # (AUTO) 3.3 (2.1-6.9); PLATELET COUNT 240 x10e3/uL (140-360); RED CELL DISTRIBUTION WIDTH 14.6 % (11.7-14.4)
--- NOTE | 2018-09-21 06:39 | Diagnostic Imaging Report ---
EXAMINATION: CHEST SINGLE (PORTABLE) INDICATION: SOB COMPARISON: Chest x-ray 09/20/2018, chest CT 09/10/2018 FINDINGS: AP view TUBES and LINES: None. LUNGS: Lungs are not well inflated. Mild bibasilar atelectasis. Left midlung scarring. There is no evidence of pneumonia or pulmonary edema. PLEURA: No pleural effusion or pneumothorax. HEART AND MEDIASTINUM: The cardiomediastinal silhouette is unremarkable. BONES AND SOFT TISSUES: No acute osseous lesion. Soft tissues are unremarkable. UPPER ABDOMEN: No free air under the diaphragm. IMPRESSION: No acute thoracic abnormality. Signed by: DR. Deepak Tamez MD on 09/21/2018 6:36 AM
[2018-09-21 06:49] LABS: ALANINE AMINOTRANSFERASE 14 IU/L (0-55); ALBUMIN 3.8 g/dL (3.5-5.0); ALBUMIN/GLOBULIN RATIO 1.2 (0.8-2.0); ALKALINE PHOSPHATASE 68 IU/L (40-150); ANION GAP 17.4 mmol/L (8-16); BLOOD UREA NITROGEN 18 mg/dL (7-26); BUN/CREATININE RATIO 18 (6-25); CALCIUM 9.6 mg/dL (8.4-10.2); CARBON DIOXIDE 29 mmol/L (22-29); CHLORIDE 93 mmol/L (98-107); CREATININE, SERUM 0.98 mg/dL (0.72-1.25); EST GLOMERULAR FILTRATION RATE > 60 ML/MIN (60-); GLUCOSE 185 mg/dL (74-118); POTASSIUM 4.4 mmol/L (3.5-5.1); SODIUM 135 mmol/L (136-145)
[2018-09-21 10:51] LABS: CREATINE KINASE MB 1.8 ng/mL (0-5.0)
[2018-09-21] MEDS ORDERED: METHYLPREDNISOLONE SOD SUCC 40 MG/ML VIAL 1ML IV ONE (14:15)
[2018-09-21 16:46] LABS: ABG PCO2 70 mmHg (41-51)
[2018-09-21 16:47] LABS: ABG HCO3 35 mmol/L (23-28); ABG PO2 22 mmHg (80-105)
--- NOTE | 2018-09-21 19:43 | NUR ---
PAGED Harriet ARENAS REGARDING PT'S PAIN LEVEL FROM HIS BACK, RADIATES TO HIS LEGS AWAITING CALL FROM DR Agatha ARANA
[2018-09-21] MEDS ORDERED: HYDRALAZINE HCL 10 MG TAB PO PRN (21:30)
[2018-09-22] VITALS (7 sets, daily range): BP systolic 124–152; BP diastolic 71–89
--- NOTE | 2018-09-22 00:30 | Consultation ---
DATE OF CONSULTATION: September 20, 2018 PULMONARY MEDICINE CONSULT REFERRING PHYSICIAN: Dr. Sapp. REASON FOR REFERRAL: Acute respiratory failure. HISTORY: Mr. Mcqueen is a pleasant 53-year-old gentleman with acute respiratory failure. The patient was in the usual state of health for a few days. He filled a pain medicine prescription and took the first dose yesterday. Patient reportedly was having more shortness of breath and obtundation. He was not waking up very easily. Patient was sent to emergency room. He was seemed to be low on oxygen. Arterial blood gas analysis was performed, which demonstrated 7.23/77/102. The patient was reportedly given some Narcan. He reportedly had immediately responded to this medicine. The patient was given BiPAP. Eventually, he remained more awake on the BiPAP and he was able to talk. However upon coming off the BiPAP, he would rebound initially into obtundation, but then later on he would rebound into ABG proven hypercapnia. I am consulted. PAST MEDICAL HISTORY: Hypertension; diabetes; asthma, probably non-allergic, due to low IgE level, obesity, ZION, knee and ankle surgery. MEDICATIONS: Medicine list was reviewed per electronic record. ALLERGIES: LISINOPRIL. SOCIAL HISTORY: No drinking. No drugs reported. He is a lifetime nonsmoker. Fiancee is also present. FAMILY HISTORY: Noncontributory. REVIEW OF SYSTEMS: Cannot get reliably as he is on respiratory assist device. PHYSICAL EXAMINATION VITAL SIGNS: Afebrile, vital signs noted per electronic record. GENERAL: In no acute distress, alert, although a little bit sleepy but calm. HEENT: Normocephalic and atraumatic. Throat is midline. NECK: Supple. LUNGS: Bilateral air entry, decreased breath sounds throughout, no wheezes. CARDIOVASCULAR: S1 and S2. No murmurs, rubs, or gallops. ABDOMEN: Soft and nontender. EXTREMITIES: No clubbing, no cyanosis. There is trace leg edema. INTEGUMENT: No rash, no purpura. LABS: White count 8, hematocrit 46, and platelets 258. Potassium 5.1, BUN 25, creatinine 1.5, bicarbonate 25. IMPRESSION 1. Acute respiratory failure, on BiPAP salvage. 2. Chronic respiratory failure. 3. Obesity hypoventilation syndrome. 4. Possible opiate toxicity, suggested by vigorous Narcan response. 5. Obstructive sleep apnea. 6. Hypertension. 7. Possible upper respiratory infection. 8. Diabetes. 9. Asthma, possibly non-allergic. PLAN: At this time, continue BiPAP weaning. Intermittent blood gases have been ordered due to the patient's status of very slow improvement. Oral diet is okay, supervised. Patient needs to be monitored in room with telemetry. Continue treatment for his asthma. Furthermore, patient may need to have limitation on any opiates he is given. Greater than 30 minutes in direct care of multiple episodes today and multiple supervisions of blood gas analyses. Greater than 30 minutes in total care. Thank you very much, Dr. Sapp, for this consult. Please call for questions. Job#: [id number] STEPHEN
[2018-09-22] MEDS: ALBUTEROL/IPRATROPIUM 3 ML NEB NEB SCH ×5 (02:21→19:11)
[2018-09-22] MEDS: INSULIN LISPRO 100 UNIT/1 ML 3ML VIAL SQ SCH ×4 (09:52→17:57)
--- NOTE | 2018-09-22 14:56 | Progress Note ---
DATE: September 22, 2018 PULMONARY MEDICINE PROGRESS NOTE SUBJECTIVE: Mr. Mcqueen was seen and examined at bedside. He continues to have steady progress. He was weaned off of the BiPAP. He continues to have good tolerance of food. No evelyn wheezing. No dizziness. He is not having confusional spells today. REVIEW OF SYSTEMS: No bleeding, no chest pain. OBJECTIVE VITAL SIGNS: Afebrile. Vital signs noted per electronic record. GENERAL: In no acute distress, alert and calm, sitting up. HEENT: Normocephalic, atraumatic. NECK: Supple. Throat midline. LUNGS: Bilateral air entry, moderate air entry. CARDIOVASCULAR: S1, S2. No murmurs, rubs, or gallops. ABDOMEN: Soft, nontender. EXTREMITIES: No clubbing, no cyanosis. There is trace 1+ edema. INTEGUMENT: No rash or purpura. LABS: Potassium 4.4, creatinine 1.0. White count 6, hematocrit 45, platelets 240. IMPRESSION AND PLAN 1. Acute respiratory failure, multifactorial. 2. Obesity hypoventilation syndrome. 3. Asthma, no definite exacerbation, but possible. 4. Possible opiate toxicity with significant improvement on Narcan. 5. Obesity. 6. Obstructive sleep apnea. We will request the sleep study that patient had previously as he is considering one, but able to have wait for sleep study date. Patient at this time will have continued mobilization. Continue weaning off BiPAP, which for now may be at night if he tolerates. Continue bronchodilators. For now, he is off the steroids, but we will restart his home dose in the next day or two. Follow along closely. Job#: [id number]
[2018-09-22] MEDS: BUSPIRONE HCL 5 MG TAB PO SCH (17:37)
[2018-09-22] MEDS: ACETAMINOPHEN 325 MG TAB PO PRN (20:37)
--- NOTE | 2018-09-22 23:30 | NUR ---
PATIENT ASLEEP WITH BI-PAP ON, HE DENIES SHORTNESS OF BREATH. CALL LIGHT WITHIN EASY REACH, INSTRUCTED TO CALL FOR ASSISTANCE NEEDED.
[2018-09-23] MEDS: INSULIN LISPRO 100 UNIT/1 ML 3ML VIAL SQ SCH ×5 (00:32→20:21)
[2018-09-23] MEDS: ACETAMINOPHEN 325 MG TAB PO PRN (00:44)
[2018-09-23] MEDS: ALBUTEROL/IPRATROPIUM 3 ML NEB NEB SCH ×5 (02:10→23:00)
--- NOTE | 2018-09-23 03:15 | NUR ---
PATIENT IS SOUNDLY ASLEEP, HE'S EASY TO AROUSE. NO RESPIRATORY DISTRESS OBSERVED, DRESSING CHANGE REDONE TO THE RIGHT FOOT. BED ALARM ON, CALL LIGHT WITHIN EASY REACH. Addendum: 09/23/18 at 0657 by Ene Bates RN WRONG PATIENT
--- NOTE | 2018-09-23 03:35 | NUR ---
PATIENT IS ASLEEP WITH BI-PAP ON, HE'S EASY TO AROUSE AND HE DENIES SHORTNESS OF BREATH. CALL LIGHT WITHIN EASY REACH, INSTRUCTED TO CALL FOR ASSISTANCE NEEDED.
[2018-09-23 03:40] VITALS: BP 143/94
[2018-09-23 05:38] LABS: BASOPHILS % 0.3 % (0.0-1.0); EOSINOPHILS % 0.5 % (0.0-6.0); HEMATOCRIT 42.5 % (38.2-49.6); HEMOGLOBIN 13.4 g/dL (14.0-18.0); LYMPHOCYTES # (AUTO) 3.1 (1.0-3.2); LYMPHOCYTES % 42.3 % (18.0-39.1); MEAN CORPUSCULAR HEMOGLOBIN 29.1 pg (28-32); MEAN CORPUSCULAR HGB CONC 31.5 g/dL (31-35); MEAN CORPUSCULAR VOLUME 92.2 fL (81-99); MONOCYTES # (AUTO) 0.7 (0.2-0.8); MONOCYTES % 8.9 % (4.4-11.3); NEUTROPHILS # (AUTO) 3.5 (2.1-6.9); NEUTROPHILS % 47.7 % (38.7-80.0); PLATELET COUNT 188 x10e3/uL (140-360); RED BLOOD COUNT 4.61 x10e6/uL (4.3-5.7); RED CELL DISTRIBUTION WIDTH 14.7 % (11.7-14.4)
[2018-09-23 06:02] LABS: ANION GAP 17.2 mmol/L (8-16); BLOOD UREA NITROGEN 14 mg/dL (7-26); BUN/CREATININE RATIO 15 (6-25); CALCIUM 9.3 mg/dL (8.4-10.2); CARBON DIOXIDE 28 mmol/L (22-29); CHLORIDE 96 mmol/L (98-107); CREATININE, SERUM 0.95 mg/dL (0.72-1.25); EST GLOMERULAR FILTRATION RATE > 60 ML/MIN (60-); GLUCOSE 256 mg/dL (74-118); POTASSIUM 4.2 mmol/L (3.5-5.1); SODIUM 137 mmol/L (136-145)
[2018-09-23 07:52] VITALS: BP 133/87
[2018-09-23 08:00] VITALS: BP 133/87
[2018-09-23] MEDS: BUSPIRONE HCL 5 MG TAB PO SCH ×2 (08:38→16:34)
--- NOTE | 2018-09-23 10:39 | NUR ---
EDUCATED ABOUT IMM, SIGNED, FILED IN CHART, WITH COPY LEFT WITH FAMILY AT BEDSIDE.
[2018-09-23 11:33] VITALS: BP 160/95
[2018-09-23] MEDS: NIFEDIPINE CR 30 MG TAB PO SCH (16:34)
[2018-09-23] MEDS: CARVEDILOL 12.5 MG TAB PO SCH (16:34)
[2018-09-23] MEDS: METFORMIN HCL 500 MG TAB PO SCH (16:34)
[2018-09-23] MEDS: HYDRALAZINE HCL 25 MG TAB PO SCH (16:34)
[2018-09-23] MEDS: FUROSEMIDE 40 MG TAB PO SCH (16:34)
[2018-09-23 16:44] VITALS: BP 157/99
--- NOTE | 2018-09-23 17:00 | NUR ---
RCD PT FROM IMCU BY WHEEL CHAIR PT IS ALERT AND ORIENTED VITALS CHECKED PT RESTING ON BED FAMILY AT BED SIDE BED LOW AND LOCKED CALL LIGHT IN REACH
--- NOTE | 2018-09-23 19:05 | NUR ---
PT RESTING ON BED BED SIDE REPORT GIVEN TO ONCOMING NURSE
[2018-09-23 20:00] VITALS: BP 103/57
[2018-09-23] MEDS ORDERED: ATORVASTATIN 20 MG TAB PO SCH (21:00)
[2018-09-24] VITALS: BP 127/79
--- NOTE | 2018-09-24 00:40 | Progress Note ---
DATE: September 23, 2018 PULMONARY MEDICINE PROGRESS NOTE SUBJECTIVE: Mr. Mcqueen was seen and examined at bedside. He continues with steady progress. No BiPAP dependency during daytime any longer. 3 liters per minute by home oxygen. Patient did have bowel movement and is eating well. I reviewed sleep studies which demonstrated 136 apnea-hypopnea index with lowest oxygen saturation only mild to moderate amount, but this was a sleep study that was split. During this split night study, his pressures were seen going to 24 of IPAP demonstrating significant needs and he was given BiPAP. I have written prescription for this. REVIEW OF SYSTEMS: No headaches, no bleeding. OBJECTIVE: VITAL SIGNS: Afebrile, vital signs noted per electronic record. GENERAL: In no acute distress, alert and calm. HEENT: Normocephalic, atraumatic. NECK: Supple. Throat midline. LUNGS: Bilateral air entry, limited air entry definite, otherwise rare rhonchi. CARDIOVASCULAR: S1, S2. No murmurs, rubs, or gallops. ABDOMEN: Soft, nontender. EXTREMITIES: No clubbing, no cyanosis, there is trace edema. INTEGUMENT: No rash, no purpura. LABS: 14 BUN, 1.0 creatinine. 7 white count, 43 hematocrit. IMPRESSION AND PLAN: 1. Severe obstructive sleep apnea, defined by sleep study. 2. Obesity hypoventilation syndrome. 3. Acute respiratory failure, off bilevel positive airway pressure. Worsened by opiate medication. 4. Obesity. 5. Diabetes. 6. Mild concomitant fluid overload. At this time, continue current treatment. Patient remains at this time with BiPAP during sleep. Continue low doses of diuretics. Patient will continue optimizing blood pressure medicine. Continue oxygen during daytime. I have ordered company the BiPAP to try to expedite it and we have sent the order to [facility] who is likely to be in network with the patient's insurance. Will continue current treatment at this time. Follow up closely. Job#: [id number]
[2018-09-24] MEDS: ALBUTEROL/IPRATROPIUM 3 ML NEB NEB SCH ×4 (03:22→15:00)
[2018-09-24 04:00] VITALS: BP 125/79
--- NOTE | 2018-09-24 07:05 | NUR ---
RCD PT AT BED PT IS ALERT AND ORIENTED PT RESTING ON BED NO SIGNS OF ANY DISTRESS NOTED IV PATENT FAMILY AT BED SIDE BED LOW AND LOCKED CALL LIGHT IN REACH
[2018-09-24] MEDS: INSULIN LISPRO 100 UNIT/1 ML 3ML VIAL SQ SCH ×2 (07:30→11:30)
[2018-09-24] MEDS: METFORMIN HCL 500 MG TAB PO SCH (08:00)
[2018-09-24 08:03] VITALS: BP 128/70
[2018-09-24] MEDS: BUSPIRONE HCL 5 MG TAB PO SCH (08:51)
[2018-09-24] MEDS: CARVEDILOL 12.5 MG TAB PO SCH (08:51)
[2018-09-24] MEDS: HYDRALAZINE HCL 25 MG TAB PO SCH (08:51)
[2018-09-24] MEDS: FUROSEMIDE 40 MG TAB PO SCH (08:52)
[2018-09-24] MEDS: NIFEDIPINE CR 30 MG TAB PO SCH (08:52)
[2018-09-24 09:00] VITALS: BP 128/70
[2018-09-24] MEDS ORDERED: LORATADINE 10 MG TAB PO SCH (09:00)
[2018-09-24 12:00] VITALS: BP 127/61
--- NOTE | 2018-09-24 14:04 | NUR ---
CASE MANAGEMENT ASSESSMENT Flosser to bedside to discuss plan of care with patient/family. CM/SW role and care transitions discussed. Anticipated discharge plan discussed along with duration of care. CM/SW discussed patients right to make decisions in care. CM/SW work hours given. Patient lives: with girlfrienhelen Duncan Admit/Transfer: thru ED Hospital/ER visits since last admit: Recently discharged in obs on Sep 14; prior to that was here September 01 in obs as well. POA/Emergency contact: Perla Miller [phone] Current/Previous Home Health: none PCP/Follow-up Care: Dr. Sapp - advised pt to follow up with MD within 7 days of discharge Current/Previous DME: oxygen concentrator - uses [employer] Medications (referring to index hospitalization or the first time you were in the hospital) a. Were changes made in your medications when you were in the hospital on Sep 14, 2018? no b. Did you understand the changes? n/a c. Were you able to obtain your new medications right away? n/a d. Were you able to take your medications like the doctor wanted you to? n/a e. Did the hospital give you an accurate, easy to understand list of medications when you left? yes Scale of 1-10 how comfortable does patient feel with disease management in outpatient settin Other Services: none Employment Status: disabled Areas of Concerns: n/a Referral Needs: need BiPap/CPAP; Dr. Rivera was setting up thru his office, but [employer] only pays 20%. Pt would have to pay 80%. Dr. Rivera discussed with pt extensively need for CPAP. He spoke to him regarding ji pay, but pt does not want to at this time. Pt stated he will search for one online when he gets home. Education Needs: medical management IMM/CHILD given and signed (if applicable): IMM on chart Goal for discharge: home as soon as possible. Dr. Rivera cleared pt to discharge from his standpoint. CM/SW left business card at the bedside with contact information. Name and number was also written on the patients whiteboard. Patient verbalized understanding of discussion. CM will follow-up with ongoing discharge and transition of care needs.
--- NOTE | 2018-09-24 14:11 | NUR ---
A/C TO DR JAMES HE GAVE THE PRESCRIPTION TO BUY BIPAP PAGED AND NOTIFIED DR ARANA TO THE DISCHARGE APPROVAL GOT THE DISCHARGE ORDER
[2018-09-24] MEDS ORDERED: BUSPAR PO (14:19)
[2018-09-24] MEDS ORDERED: BUSPIRONE HCL5 MG PO (14:22)
--- NOTE | 2018-09-24 15:04 | NUR ---
PT WENT HOME IN SAFE CONDITION WITH HIS
--- NOTE | 2018-09-25 06:52 | Progress Note ---
DATE: 09/24/2018 Pulmonary Medicine Progress Note SUBJECTIVE: Mr. Mcqueen was seen and examined at bedside. I discussed with [employer]. I discussed with case finisher and nursing. The patient does not have a BiPAP benefit and would have to go ji route unless he changed his insurance. Given the very high cost of the BiPAP device, I recommended for him to get CPAP device instead. Discharge planning is being done. REVIEW OF SYSTEMS: No headaches, no rash. OBJECTIVE: VITAL SIGNS: Afebrile. Vital signs noted per the chart record. GENERAL: No acute distress, alert and calm. HEENT: Normocephalic and atraumatic. NECK: Supple. Throat midline. LUNGS: Bilateral air entry, limited, but rhonchi, otherwise clear. CARDIOVASCULAR: S1 and S2. No murmurs, rubs, or gallops. ABDOMEN: Soft and nontender. EXTREMITIES: No clubbing. No cyanosis. There is trace edema. INTEGUMENT: No rash or purpura. IMPRESSION: 1. Severe obstructive sleep apnea. 2. Obesity with hypoventilation syndrome. 3. Acute respiratory failure, status post BiPAP . 4. Nonallergic asthma. PLAN: Optimally, BiPAP would be given, 24/19 cm water pressure. However, I recommend at this time to go forward with self-funded CPAP at 19 cm of water, I gave him a prescription. I told him to take the mask with him for the best fit for now. Discharge planning will continue and he will likely be discharged today. MD [place] Alanis/MODL /[id number]
== END 2018-09-24 15:04 | disposition home or self-care (01) | DRG 917 ==
LOC: ER 13:18 → ERHOLD 18:36 → IMCU 23:56 → MED/SURG2 09-23 16:59
DX: T40.601A Poisoning by unspecified narcotics, accidental (unintentional), initial encounter (principal); J96.02 Acute respiratory failure with hypercapnia; E66.2 Morbid (severe) obesity with alveolar hypoventilation; Z68.41 Body mass index [BMI] 40.0-44.9, adult; E87.2 Acidosis; E11.9 Type 2 diabetes mellitus without complications; E87.70 Fluid overload, unspecified; G47.33 Obstructive sleep apnea (adult) (pediatric); J45.909 Unspecified asthma, uncomplicated
CPT/HCPCS: 36415; 36600; 70450; 71045; 71046; 80048; 80053; 80307; 81001; 82550; 82553; 82805; 82948; 83735; 83880; 84484; 85025; 85379; 93005; 94640; 94660; 94760; 96372; 99284; J2310; J2920

== ENCOUNTER 2018-10-13 03:22 | Inpatient (IN) | payer MEDICARE ==
[2018-10-13] VITALS (12 sets, daily range): BP systolic 91–138; BP diastolic 58–99
[~2018-10-13] VITALS: Ht 180.3 cm; Wt 133.4 kg
[~2018-10-13 03:22] MED LIST changes: +BUSPAR PO; +BUSPIRONE HCL5 MG PO
--- OUTSIDE RECORDS SUMMARY | 2018-10-13 04:14 | XMS REPORT | Continuity of Care Document ---
Author Author [facility] Organization Interface Address Unknown Phone Unavailable Problems Problem Status Onset Date Classification Date Reported Comments Source CP, SOB Active 09/08/2018 [facility] ACUTE RESPIRATORY FAILURE WITH HYPOXEMIA Active 09/08/2018 [facility] CHF EXACERBATION, TIA Active 05/30/2018 [facility] CHEST PAIN/SOB/SLURRED SPEACH Active 05/29/2018 [facility] SHORTNESS OF BREATH Active 05/03/2018 [facility] CHEST PAIN, CHOLELITHIASIS Active 05/03/2018 [facility] RESPIRATORY DISTRESS, CHF EXACERBATION Active 03/31/2018 [facility] SOB/CP Active 03/31/2018 [facility] CHEST PAIN, DYSPNEA Active 03/26/2018 [facility] CHEST PAIN/DIFFICULTY BREATHING Active 03/26/2018 [facility] HYPERCAPNIC RESPIRATORY FAILURE Active 01/31/2018 [facility] SHORTNESS OR BREATH, RESPIRATORY ACIDOSI Active 01/05/2018 [facility] SHORTNESS OR BREATH Active 01/05/2018 [facility] CHEST PAIN Active 11/30/2017 [facility] ACUTE EXACERBATION OF CHF,ACUTE RESPIRAT Active 11/30/2017 [facility] Hypertensive heart and chronic kidney disease with heart failure and stage 1 through stage 4 chronic kidney disease, or unspecified chronic kidney disease 11/15/2017 02/14/2018 [facility] ELEVATED TROPONIN, HTN, SOB, RESP FAILUR Active 11/05/2017 [facility] Hypertension Resolved Problem 09/12/2018 [facility] Type II diabetes mellitus poorly controlled Active Problem 09/12/2018 [facility] Shortness of breath 02/14/2018 [facility] Acute respiratory failure with hypercapnia 02/14/2018 [facility] Acute respiratory failure with hypoxia 02/14/2018 [facility] Acute kidney failure, unspecified 02/14/2018 [facility] Morbid obesity due to excess calories 02/14/2018 [facility] Cardiomyopathy, unspecified 02/14/2018 [facility] Acute systolic heart failure 02/14/2018 [facility] Body mass index 36.0-36.9, adult 02/14/2018 [facility] Obstructive sleep apnea (pediatric) 02/14/2018 [facility] Chronic kidney disease, unspecified 02/14/2018 [facility] ACUTE RESPIRATORY FAILURE, UNSP W HYPOXI Active [facility] ABNORMAL LEVELS OF OTHER SERUM ENZYMES Active [facility] ESSENTIAL (PRIMARY) HYPERTENSION Active [facility] SHORTNESS OF BREATH Active [facility] ACIDOSIS Active [facility] HEART FAILURE, UNSPECIFIED Active [facility] [place] RESPIRATORY FAILURE, UNSPECIFIED WITH HY Active [facility] CHEST PAIN, UNSPECIFIED Active [facility] DYSPNEA, UNSPECIFIED Active [facility] CALCULUS OF GALLBLADDER W/O CHOLECYSTITI Active [facility] TRANSIENT CEREBRAL ISCHEMIC ATTACK, UNSP Active [facility] ACUTE RESPIRATORY FAILURE WITH HYPOXIA Active [facility] Medications Medication Details Route Status Patient Instructions Ordering Provider Order Date Source metoprolol extended release 25 mg, Route: PO, Drug form: ERTAB, Daily, Start date: 09/10/18 9:00:00 [employer], Duration: 30 day, Stop date: 10/09/18 9:00:00 [employer] No Longer Active 09/10/2018 [facility] Aspirin 81 MG Chewable Tablet 81 mg, Route: PO, Drug form: CHEWTAB, Daily, Dosing Weight 133.3, kg, Start date: 09/10/18 9:00:00 [employer], Duration: 30 day, Stop date: 10/09/18 9:00:00 [employer] No Longer Active 09/10/2018 [facility] atorvastatin 20 mg, 2 tab, Route: PO, Drug form: TAB, Bedtime, Dosing Weight 133.3, kg, Start date: 09/09/18 21:00:00 [employer], Duration: 30 day, Stop date: 10/08/18 21:00:00 CSTNotes: (Same As: Lipitor) Inactive 09/10/2018 [facility] Lasix 40 mg, Route: IVP, Drug form: INJ, BID Diuretic, Dosing Weight 133.3, kg, Start date: 09/09/18 16:00:00 [employer], Duration: 30 day, Stop date: 10/09/18 8:00:00 [employer] Inactive 09/09/2018 [facility] Sodium Chloride 0.9% IV 1,000 mL 1,000 mL, Rate: 75 ml/hr, Infuse over: 13.3 hr, Route: IV, Dosing Weight 133.3 kg, Total Volume: 1,000, Start date: 09/09/18 9:20:00 [employer], Duration: 30 day, Stop date: 10/09/18 9:19:00 [employer], 2.62, m2 Inactive 09/09/2018 [facility] carvedilol 12.5 mg, 1 tab, Route: PO, Drug form: TAB, Q12H, Dosing Weight 133.3, kg, Start date: 09/09/18 9:00:00 [employer], Duration: 30 day, Stop date: 10/08/18 21:00:00 CSTNotes: Give with food. (Same As: Coreg) Inactive 09/09/2018 [facility] Aspirin 81 MG Enteric Coated Tablet 81 mg, 1 tab, Route: PO, Drug form: ECTAB, Daily, Dosing Weight 133.3, kg, Start date: 09/09/18 9:00:00 [employer], Duration: 30 day, Stop date: 10/08/18 9:00:00 CSTNotes: Do not crush or chew. (Same As: Ecotrin) Inactive 09/09/2018 [facility] Furosemide 40 MG Oral Tablet [Lasix] 40 mg, 1 tab, Route: PO, Drug form: TAB, BID Diuretic, Dosing Weight 133.3, kg, Start date: 09/09/18 8:00:00 [employer], Duration: 30 day, Stop date: 10/08/18 16:00:00 CSTNotes: (Same as: Lasix) May cause GI upset. Give with food or milk. Inactive 09/09/2018 [facility] Lasix 40 mg, Route: IVP, Drug form: INJ, BID Diuretic, Dosing Weight 125.455, kg, Start date: 09/09/18 8:00:00 [employer], Duration: 30 day, Stop date: 10/08/18 16:00:00 [employer] No Longer Active 09/09/2018 [facility] heparin 5,000 unit, 1 mL, Route: SUB-Q, Drug form: INJ, Q8H, Dosing Weight 125.455, kg, Start date: 09/09/18 0:00:00 [employer], Duration: 30 day, Stop date: 10/08/18 16:00:00 CSTNotes: porcine heparin Inactive 09/09/2018 [facility] Lorazepam 1 MG Oral Tablet [Ativan] 1 mg=1 tab, PO, Q4H, PRN Anxiaty, 0 Refill(s) On Hold 09/09/2018 [facility] Pepcid 20 mg, 1 tab, Route: PO, Drug form: TAB, BID, Dosing Weight 125.455, kg, Start date: 09/08/18 17:00:00 [employer], Duration: 30 day, Stop date: 10/08/18 9:00:00 CSTNotes: (Same as: Pepcid) No Longer Active 09/08/2018 [facility] Budesonide 0.25 MG/ML Inhalant Solution 0.5 mg, 2 mL, Route: NEB, Drug form: SUSP, BID, Dosing Weight 125.455, kg, Start date: 09/08/18 17:00:00 [employer], Duration: 30 day, Stop date: 10/08/18 9:00:00 [employer], Notes: (Same As: Pulmicort) No Longer Active 09/08/2018 [facility] Morphine 2 mg, 0.5 mL, Route: IVP, Drug form: SOLN, Q4H, Dosing Weight 125.455, kg, PRN Pain Score 7-10, Start date: 09/08/18 16:05:00 [employer], Duration: 30 day, Stop date: 10/08/18 16:04:00 CSTNotes: (Same as:MORPhine Sulfate) No Longer Active 09/08/2018 [facility] Albuterol 0.833 MG/ML / Ipratropium Lincoln 0.167 MG/ML Inhalant Solution 3 mL, Route: NEB, Drug Form: SOLN, Dosing Weight 125.455, kg, Q4H, Start date: 09/08/18 16:00:00 [employer], Duration: 30 day, Stop date: 10/08/18 12:00:00 CSTNotes: (Same as: Duoneb) No Longer Active 09/08/2018 [facility] methylPREDNISolone SODium SUCCinate 40 mg, 1 mL, Route: IVP, Drug form: INJ, Q8H, Dosing Weight 125.455, kg, Start date: 09/08/18 16:00:00 [employer], Duration: 5 day, Stop date: 09/13/18 8:00:00 CSTNotes: (Same as:Solu-MEDROL, A-Methapred) Inactive 09/08/2018 [facility] Dextrose 50% Syringe 25 gm, 50 mL, Route: IVP, Drug Form: INJ, Dosing Weight 125.455, kg, PRN, PRN Blood Glucose Results, Start date: 09/08/18 15:29:00 [employer], Duration: 30 day, Stop date: 10/08/18 15:28:00 [employer] No Longer Active 09/08/2018 [facility] Glucagon 1 mg, Route: IM, Drug form: PDR/INJ, PRN, Dosing Weight 125.455, kg, PRN Blood Glucose Results, Start date: 09/08/18 15:29:00 [employer], Duration: 30 day, Stop date: 10/08/18 15:28:00 [employer] No Longer Active 09/08/2018 [facility] Insulin Lispro 2 unit, 0.02 mL, Route: SUB-Q, Drug form: SOLN, TID-Before Meals, Dosing Weight 125.455, kg, PRN Blood Glucose Results, Start date: 09/08/18 15:29:00 [employer], Duration: 30 day, Stop date: 10/08/18 15:28: [...] kg, Priority: STAT, Start date: 09/08/18 14:31:00 [employer], Stop date: 09/08/18 14:31:00 CSTNotes: (Same as: Lasix) MEDICATION WASTE Product Size: 40 mg Product Wasted: ___ mg Inactive 09/08/2018 [facility] Ativan 0.5 mg, Route: IVP, Drug form: INJ, ONCE, Dosing Weight 125.455, kg, Priority: STAT, Start date: 09/08/18 12:50:00 [employer], Stop date: 09/08/18 12:50:00 [employer] Inactive 09/08/2018 [facility] Fentanyl 50 microgram, Route: IVP, ONCE, Dosing Weight 125.455, kg, Priority: STAT, Start date: 09/08/18 9:52:00 [employer], Stop date: 09/08/18 9:52:00 [employer] Inactive 09/08/2018 [facility] Saline Flush 0.9% 10 mL, Route: IVP, Drug Form: INJ, Dosing Weight 131.182, kg, PRN, PRN Line Flush, Start date: 09/08/18 9:13:00 [employer], Duration: 30 day, Stop date: 10/08/18 9:12:00 CSTNotes: preservative free. No Longer Active 09/08/2018 [facility] Albuterol 0.83 MG/ML Inhalant Solution 2.49 mg=3 mL, INHALATION, Q6H, PRN wheezing, coughing, or shortness of breath, # 100 ea, 5 Refill(s), Pharmacy: [id number] Active 02/03/2018 [facility] Furosemide 40 MG Oral Tablet [Lasix] 40 mg=1 tab, PO, BID, # 60 tab, 5 Refill(s), Pharmacy: [id number] Active 02/03/2018 [facility] Metformin hydrochloride 500 MG Oral Tablet 500 mg, 1 tab, Route: PO, Drug form: TAB, BID, Dosing Weight 131, kg, Start date: 02/03/18 9:00:00 CDT, Duration: 30 day, Stop date: 03/04/18 17:00:00 CDTNotes: (Same as: Glucophage) Take with meal Inactive 02/03/2018 [facility] Insulin Lispro 2 unit, 0.02 mL, Route: [...] days from Date No Longer Active 02/03/2018 [facility] Enoxaparin 40 mg, 0.4 mL, Route: SUB-Q, Drug form: INJ, [id number], Dosing Weight 131, kg, Start date: 02/02/18 11:00:00 CDT, Duration: 30 day, Stop date: 03/03/18 23:00:00 CDTNotes: (Same as: Lovenox) No Longer Active 02/02/2018 [facility] Prednisone 20 mg, 1 tab, Route: PO, Drug form: TAB, Daily, Dosing Weight 131, kg, Start date: 02/02/18 9:00:00 CDT, Stop date: 03/03/18 9:00:00 CDTNotes: Take with food. No Longer Active 02/02/2018 [facility] Lasix 40 mg, 4 mL, Route: IVP, Drug form: INJ, BID, Dosing Weight 131, kg, Start date: 02/01/18 11:53:00 CDT, Duration: 30 day, Stop date: 03/03/18 9:00:00 CDTNotes: (Same as: Lasix) MEDICATION WASTE Product Size: 40 mg Product Wasted: ___ mg No Longer Active 02/01/2018 [facility] Acetaminophen 325 MG / Hydrocodone Bitartrate 10 MG Oral Tablet [Cubero 10/325] 1 tab, Route: PO, Drug Form: TAB, Dosing Weight 98.182, kg, Q6H, PRN Pain Score 4-6, Start date: 02/01/18 11:40:00 CDT, Duration: 30 day, Stop date: 03/03/18 11:39:00 CDTNotes: Do not exceed 4gm/day of acetaminophen. (Same as: Cubero 325/10) No Longer Active 02/01/2018 [facility] Morphine 6 mg, 3 mL, Route: PO, Drug form: SOLN, Q4H, Dosing Weight 131, kg, PRN Pain Score 7-10, Start date: 02/01/18 11:09:00 CDT, Duration: 30 day, Stop date: 03/03/18 11:08:00 CDTNotes: (Same as:MORPhine Sulfate) No Longer Active 02/01/2018 [facility] valsartan 240 mg, 3 tab, Route: PO, Drug form: TAB, Daily, Dosing Weight 98.182, kg, Start date: 02/01/18 9:00:00 CDT, Duration: 30 day, Stop date: 03/02/18 9:00:00 CDTNotes: Same as Diovan No Longer Active 02/01/2018 [facility] potassium chloride 10 mEq oral tablet, extended release 10 mEq, 1 tab, Route: PO, Drug form: ERTAB, Daily, Dosing Weight 98.182, kg, Start date: 02/01/18 9:00:00 CDT, Duration: 30 day, Stop date: 03/02/18 9:00:00 CDTNotes: (Same as: K-Dur 10) "Do Not Crush" With food and full glass of water No Longer Active 02/01/2018 [facility] NIFEdipine 30 mg oral tablet, extended release [...] Do not crush No Longer Active 02/01/2018 [facility] Aspirin 81 MG Enteric Coated Tablet 81 mg, 1 tab, Route: PO, Drug form: ECTAB, Daily, Dosing Weight 98.182, kg, Start date: 02/01/18 9:00:00 CDT, Duration: 30 day, Stop date: 03/02/18 9:00:00 CDTNotes: Do not crush or chew. (Same As: Ecotrin) No Longer Active 02/01/2018 [facility] Lasix 40 mg, Route: IVP, Drug form: INJ, BID Diuretic, Dosing Weight 98.182, kg, Start date: 02/01/18 8:00:00 CDT, Duration: 30 day, Stop date: 03/02/18 16:00:00 CDT No Longer Active 02/01/2018 [facility] Albuterol 0.833 MG/ML / Ipratropium Lincoln 0.167 MG/ML Inhalant Solution 3 mL, Route: NEB, Drug Form: SOLN, Dosing Weight 98.182, kg, RQ6H, Start date: 02/01/18 2:00:00 CDT, Duration: 30 day, Stop date: 03/02/18 20:00:00 CDTNotes: (Same as: Duoneb) No Longer Active 02/01/2018 [facility] methylPREDNISolone SODium SUCCinate 40 mg, 1 mL, Route: IVP, Drug form: INJ, Q8H, Dosing Weight 98.182, kg, Start date: 02/01/18 0:00:00 CDT, Duration: 5 day, Stop date: 02/05/18 16:00:00 CDTNotes: (Same as:Solu-MEDROL, A-Methapred) Inactive 02/01/2018 [facility] Acetaminophen 325 MG / Hydrocodone Bitartrate 10 MG Oral Tablet [Cubero 10/325] 1 tab, Route: PO, Drug Form: TAB, Dosing Weight 98.182, kg, Q6H, Start date: 02/01/18 0:00:00 CDT, Duration: 30 day, Stop date: 03/02/18 18:00:00 CDTNotes: Do not exceed 4gm/day of acetaminophen. (Same as: Cubero 325/10) Inactive 02/01/2018 [facility] Furosemide 40 MG Oral Tablet [Lasix] 40 mg=1 tab, PO, BID, 0 Refill(s) No Longer Active 02/01/2018 [facility] atorvastatin 20 mg oral tablet 20 mg=1 tab, PO, Bedtime, # 30 tab, 0 Refill(s) Active 02/01/2018 [facility] carvedilol 25 mg oral tablet 25 mg=1 tab, PO, BID, # 180 tab, 1 Refill(s) Active 02/01/2018 [facility] zolpidem 10 mg oral tablet 10 mg=1 tab, PO, Bedtime, # 14 tab, 0 Refill(s) No Longer Active 02/01/2018 [facility] Morphine 2 mg, 2 mL, Route: IVP, Drug form: SOLN, Q4H, Dosing Weight 98.182, kg, PRN Pain Score 7-10, Priority: STAT, Start date: 01/31/18 21:01:00 CDT, Duration: 30 day, Stop date: 03/02/18 21:00:00 CDTNotes: Preservative free. (Same as: Morphine Sulfate-PF) No Longer Active 02/01/2018 [facility] Levofloxacin 750 mg, 150 mL, Route: IVPB, Drug form: SOLN, [id number], Dosing Weight 98.182, kg, for CrCl >49 mL/min, Start date: 01/31/18 21:00:00 CDT, Duration: 5 day, Stop date: 02/04/18 21:00:00 CDT, ABX Indication: Non-PNA Respiratory Tract InfectionNotes: (Same as:Levaquin) No Longer Active 02/01/2018 [facility] Ambien 5 mg, 1 tab, Route: PO, Drug form: TAB, Bedtime, Dosing Weight 98.182, kg, Start date: 01/31/18 21:00:00 CDT, Duration: 30 day, Stop date: 03/01/18 21:00:00 CDTNotes: (Same As: Ambien) No Longer Active 02/01/2018 [facility] carvedilol 25 mg, 2 tab, Route: PO, Drug form: TAB, Q12H, Dosing Weight 98.182, kg, Start date: 01/31/18 21:00:00 CDT, Duration: 30 day, Stop date: 03/02/18 9:00:00 CDTNotes: Give with food. (Same As: Coreg) No Longer Active 02/01/2018 [facility] atorvastatin 20 mg, 2 tab, Route: PO, Drug form: TAB, Bedtime, Dosing Weight 98.182, kg, Start date: 01/31/18 21:00:00 CDT, Duration: 30 day, Stop date: 03/01/18 21:00:00 CDTNotes: (Same As: Lipitor) No Longer Active 02/01/2018 [facility] Insulin Lispro 15 unit, 0.15 mL, Route: [...] days from Date No Longer Active 02/01/2018 [facility] Glucagon 1 mg, Route: IM, Drug form: PDR/INJ, PRN, Dosing Weight 98.182, kg, PRN Blood Glucose Results, Start date: 01/31/18 20:38:00 CDT, Duration: 30 day, Stop date: 03/02/18 20:37:00 CDT No Longer Active 02/01/2018 [facility] Dextrose 50% Syringe 25 gm, 50 mL, Route: IVP, Drug Form: INJ, Dosing Weight 98.182, kg, PRN, PRN Blood Glucose Results, Start date: 01/31/18 20:38:00 CDT, Duration: 30 day, Stop date: 03/02/18 20:37:00 CDT No Longer Active 02/01/2018 [facility] Albuterol 0.83 MG/ML Inhalant Solution 2.5 mg, 3.01 mL, Route: NEB, Drug form: SOLN, RQ2H, Dosing Weight 98.182, kg, PRN Wheezing, Priority: Routine, Start date: 01/31/18 20:35:00 CDT, Duration: 30 day, Stop date: 03/02/18 20:34:00 CDTNotes: SEE RT DOCUMENTATION (Same as: Donnell) No Longer Active 02/01/2018 [facility] Sodium Chloride 0.9% (Bolus) IV 1,000 mL, 1000 ml/hr, Infuse Over: 1 hr, Route: IV, 1,000, Drug form: INJ, ONCE, Priority: STAT, Dosing Weight 98.182 kg, Start date: 01/31/18 18:05:00 CDT, Stop date: 01/31/18 18:05:00 CDT Inactive 01/31/2018 [facility] Naloxone 2 mg, 2 mL, Route: IVP, Drug form: INJ, ONCE, Dosing Weight 98.182, kg, Priority: STAT, Start date: 01/31/18 18:05:00 CDT, Stop date: 01/31/18 18:05:00 CDTNotes: (Same as: Narcan) MEDICATION WASTE Product Size: 2 mg Product Wasted: ___ mg Inactive 01/31/2018 [facility] Albuterol 0.833 MG/ML / Ipratropium Lincoln 0.167 MG/ML Inhalant Solution [DuoNeb] 9 mL, Route: NEB, Drug Form: SOLN, Dosing Weight 98.182, kg, PRN, PRN Respiratory Pathway, Start date: 01/31/18 18:04:00 CDT, Duration: 30 day, Stop date: 03/02/18 18:03:00 CDTNotes: (Same as: Duoneb) No Longer Active 01/31/2018 [facility] Solu-Medrol 125 mg, Route: IVP, ONCE, Dosing Weight 98.182, kg, Priority: STAT, Start date: 01/31/18 17:18:00 CDT, Stop date: 01/31/18 17:18:00 CDT Inactive 01/31/2018 [facility] Saline Flush 0.9% 10 mL, Route: IVP, Drug Form: INJ, Dosing Weight 98.182, kg, PRN, PRN Line Flush, Start date: 01/31/18 17:08:00 CDT, Duration: 30 day, Stop date: 03/02/18 17:07:00 CDTNotes: (Same as: BD Posiflush) No Longer Active 01/31/2018 [facility] Furosemide 40 MG Oral Tablet [Lasix] 40 mg=1 tab, PO, BID, # 60 tab, 0 Refill(s), Pharmacy: [facility] Active 01/09/2018 [facility] NIFEdipine 30 mg oral tablet, extended release 30 mg=1 tab, PO, Daily, # 30 tab, 0 Refill(s), Pharmacy: [id number] Active 01/09/2018 [facility] predniSONE 20 mg oral tablet 20 mg=1 tab, PO, Daily, X 5 day, # 5 tab, 0 Refill(s), Pharmacy: [id number] Active 01/09/2018 [facility] valsartan 80 mg oral tablet 240 mg=3 tab, PO, Daily, # 90 tab, 0 Refill(s), Pharmacy: [id number] Active 01/09/2018 [facility] carvedilol 25 mg oral tablet 25 mg=1 tab, PO, Q12H, # 60 tab, 0 Refill(s), Pharmacy: [id number] Active 01/09/2018 [facility] Furosemide 40 MG Oral Tablet [Lasix] 40 mg, 1 tab, Route: PO, Drug form: TAB, BID, Dosing Weight 134.4, kg, Start date: 01/09/18 10:00:00 CDT, Duration: 30 day, Stop date: 02/08/18 9:00:00 CDTNotes: (Same as: Lasix) May cause GI upset. Give with food or milk. Inactive 01/09/2018 [facility] Nifedical XL 30 mg, 1 tab, Route: PO, Drug form: ERTAB, Daily, Dosing Weight 134.4, kg, Priority: NOW, Start date: 01/08/18 18:06:00 CDT, Duration: 30 day, Stop date: 02/07/18 9:00:00 CDTNotes: (Same as: Adalat C C, Procardia XL) Give on empty stomach. Take 1 hour before or 2 hours after meal; "Avoid grapefruit and grapefruit juice". Do not crush No Longer Active 01/08/2018 [facility] Prednisone 20 mg, 1 tab, Route: PO, Drug form: TAB, Daily, Dosing Weight 134.4, kg, Start date: 01/08/18 9:00:00 CDT, Stop date: 02/06/18 9:00:00 CDTNotes: Take with food. No Longer Active 01/08/2018 [facility] valsartan 240 mg, 3 tab, Route: PO, Drug form: TAB, Daily, Dosing Weight 134.4, kg, Start date: 01/08/18 9:00:00 CDT, Duration: 30 day, Stop date: 02/06/18 9:00:00 CDTNotes: Same as Diovan No Longer Active 01/08/2018 [facility] carvedilol 25 mg, 2 tab, Route: PO, Drug form: TAB, Q12H, Dosing Weight 134.4, kg, Start date: 01/08/18 9:00:00 CDT, Duration: 30 day, Stop date: 02/06/18 21:00:00 CDTNotes: Give with food. (Same As: Coreg) No Longer Active 01/08/2018 [facility] carvedilol 12.5 mg, 1 tab, Route: PO, Drug form: TAB, Q12H, Dosing Weight 134.4, kg, Start date: 01/07/18 21:00:00 CDT, Duration: 30 day, Stop date: 02/06/18 9:00:00 CDTNotes: Give with food. (Same As: Coreg) Inactive 01/08/2018 [facility] atorvastatin 20 mg, 2 tab, Route: PO, Drug form: TAB, Bedtime, Dosing Weight 134.4, kg, Start date: 01/07/18 21:00:00 CDT, Duration: 30 day, Stop date: 02/05/18 21:00:00 CDTNotes: (Same As: Lipitor) No Longer Active 01/08/2018 [facility] Amitriptyline 25 mg, 1 tab, Route: PO, Drug form: TAB, Bedtime, Dosing Weight 134.4, kg, Start date: 01/07/18 21:00:00 CDT, Duration: 30 day, Stop date: 02/05/18 21:00:00 CDTNotes: (Same as: Elavil) No Longer Active 01/08/2018 [facility] valsartan 160 mg, 1 tab, Route: PO, Drug form: TAB, Daily, Dosing Weight 134.4, kg, Start date: 01/07/18 15:00:00 CDT, Duration: 30 day, Stop date: 02/06/18 9:00:00 CDTNotes: Same as Diovan Inactive 01/07/2018 [facility] Hydralazine 10 mg, 0.5 mL, Route: IVP, Drug form: INJ, Q6H, Dosing Weight 134.4, kg, PRN Hypertension, Start date: 01/07/18 13:56:00 CDT, Duration: 30 day, Stop date: 02/06/18 13:55:00 CDTNotes: (Same as: Joan price) Push over 5 minutes No Longer Active 01/07/2018 [facility] Insulin Lispro 3 unit, 0.03 mL, Route: [...] days from Date No Longer Active 01/07/2018 [facility] Insulin Glargine 100 UNT/ML Injectable Solution [Lantus] 20 unit, 0.2 mL, Route: SUB-Q, Drug form: SOLN, Daily, Dosing Weight 134.4, kg, Start date: 01/07/18 9:55:00 CDT, Duration: 30 day, Stop date: 02/06/18 9:00:00 CDTNotes: (Same as: Lantus) Do not hold insulin without contacting prescriber WASTE: F/P - Black; E - [employer]ash [employer] "single patient use only" No Longer Active 01/07/2018 [facility] Glucagon 1 mg, Route: IM, Drug form: PDR/INJ, PRN, Dosing Weight 134.4, kg, PRN Blood Glucose Results, Start date: 01/06/18 16:46:00 CDT, Duration: 30 day, Stop date: 02/05/18 16:45:00 CDT No Longer Active 01/06/2018 [facility] Dextrose 50% Syringe 25 gm, 50 mL, Route: IVP, Drug Form: INJ, Dosing Weight 134.4, kg, PRN, PRN Blood Glucose Results, Start date: 01/06/18 16:46:00 CDT, Duration: 30 day, Stop date: 02/05/18 16:45:00 CDT No Longer Active 01/06/2018 [facility] Insulin Lispro 2 unit, 0.02 mL, Route: [...] days from Date No Longer Active 01/06/2018 [facility] Acetaminophen 325 MG / Hydrocodone Bitartrate 5 MG Oral Tablet [Cubero 5/325] 1 tab, Route: PO, Drug Form: TAB, Dosing Weight 134.4, kg, Q4H, PRN Pain Score 4-6, Start date: 01/06/18 11:43:00 CDT, Duration: 30 day, Stop date: 02/05/18 11:42:00 CDTNotes: (Same as: Cubero 325/5) Do not exceed 4gm/day of acetaminophen. No Longer Active 01/06/2018 [facility] Tylenol 650 mg, 2 tab, Route: PO, Drug form: TAB, Q6H, Dosing Weight 134.4, kg, PRN Pain 1-3/Temp > 100.4 F, Start date: 01/06/18 11:43:00 CDT, Duration: 30 day, Stop date: 02/05/18 11:42:00 CDTNotes: Do not exceed 4 gm/day. (Same as: Tylenol) No Longer Active 01/06/2018 [facility] methylPREDNISolone SODium SUCCinate 40 mg, 1 mL, Route: IVP, Drug form: INJ, Q12H, Dosing Weight 134.4, kg, Start date: 01/06/18 9:00:00 CDT, Duration: 30 day, Stop date: 02/04/18 21:00:00 CDTNotes: (Same as:Solu-MEDROL, A-Methapred) No Longer Active 01/06/2018 [facility] Albuterol 0.833 MG/ML / Ipratropium Lincoln 0.167 MG/ML Inhalant Solution 3 mL, Route: NEB, Drug Form: SOLN, Dosing Weight 134.4, kg, RQ6H, Start date: 01/06/18 8:00:00 CDT, Duration: 30 day, Stop date: 02/05/18 2:00:00 CDTNotes: (Same as: Duoneb) No Longer Active 01/06/2018 [facility] Enoxaparin 40 mg, 0.4 mL, Route: SUB-Q, Drug form: INJ, [id number], Dosing Weight 134.4, kg, Consider for obese patients, Start date: 01/06/18 7:00:00 CDT, Duration: 30 day, Stop date: 02/04/18 19:00:00 CDTNotes: (Same as: Lovenox) No Longer Active 01/06/2018 [facility] Budesonide 0.25 MG/ML Inhalant Solution 0.5 mg, 2 mL, Route: NEB, Drug form: SUSP, RQ12H, Dosing Weight 134.4, kg, Start date: 01/06/18 6:52:00 CDT, Stop date: 02/04/18 20:00:00 CDT, Notes: (Same As: Pulmicort) No Longer Active 01/06/2018 [facility] Albuterol 0.833 MG/ML / Ipratropium Lincoln 0.167 MG/ML Inhalant Solution [DuoNeb] 3 ml, Route: NEB, Drug Form: SOLN, Dosing Weight 134.4, kg, PRN, PRN Respiratory Pathway, Start date: 01/06/18 6:52:00 CDT, Duration: 30 day, Stop date: 02/05/18 6:51:00 CDTNotes: (Same as: Duoneb) No Longer Active 01/06/2018 [facility] Lasix 40 mg, 4 mL, Route: IVP, Drug form: INJ, Q12H, Dosing Weight 134.4, kg, Start date: 01/06/18 6:52:00 CDT, Duration: 30 day, Stop date: 02/04/18 21:00:00 CDTNotes: (Same as: Lasix) MEDICATION WASTE Product Size: 40 mg Product Wasted: ___ mg No Longer Active 01/06/2018 [facility] Albuterol 0.833 MG/ML / Ipratropium Lincoln 0.167 MG/ML Inhalant Solution 3 mL, Route: NEB, Drug Form: SOLN, Dosing Weight 134, kg, ONCE, STAT, Start date: 01/06/18 5:38:00 CDT, Stop date: 01/06/18 5:38:00 CDTNotes: (Same as: Duoneb) Inactive 01/06/2018 [facility] Albuterol 0.83 MG/ML Inhalant Solution 10 mg, 12.05 mL, Route: NEB, Drug form: SOLN, Continuous, Dosing Weight 134, kg, Priority: STAT, Start date: 01/06/18 5:38:00 CDT, Duration: 30 day, Stop date: 02/05/18 5:37:00 CDTNotes: SEE RT DOCUMENTATION (Same as: Proventil) Inactive 01/06/2018 [facility] Aspirin 325 mg, 1 tab, Route: PO, Drug form: ECTAB, ONCE, Dosing Weight 134, kg, Priority: STAT, Start date: 01/06/18 5:09:00 CDT, Stop date: 01/06/18 5:09:00 CDTNotes: (Do Not Crush) Do not crush or chew. Inactive 01/06/2018 [facility] Zofran 4 mg, Route: IVP, Drug form: INJ, ONCE, Dosing Weight 142.591, kg, Priority: STAT, Start date: 01/06/18 3:36:00 CDT, Stop date: 01/06/18 3:36:00 CDT Inactive 01/06/2018 [facility] Morphine 4 mg, Route: IVP, ONCE, Dosing Weight 142.591, kg, Priority: STAT, Start date: 01/06/18 3:36:00 CDT, Stop date: 01/06/18 3:36:00 CDT Inactive 01/06/2018 [facility] Saline Flush 0.9% 10 mL, Route: IVP, Drug Form: INJ, Dosing Weight 142.591, kg, PRN, PRN Line Flush, Start date: 01/06/18 3:20:00 CDT, Duration: 30 day, Stop date: 02/05/18 3:19:00 CDTNotes: Same as: BD Posiflush Sterile No Longer Active 01/06/2018 [facility] potassium chloride 10 mEq oral capsule, extended release 10 mEq=1 cap, PO, Daily, # 30 cap, 0 Refill(s), Pharmacy: [id number] Active 12/04/2017 [facility] Furosemide 40 MG Oral Tablet [Lasix] 40 mg=1 tab, PO, BID, X 30 day, # 60 tab, 1 Refill(s), Pharmacy: [facility] [id number] Active 12/04/2017 [facility] valsartan 160 mg oral tablet 160 mg=1 tab, PO, Daily, X 30 day, # 30 tab, 0 Refill(s), Pharmacy: [facility] [id number] Active 12/04/2017 [facility] atorvastatin 20 mg oral tablet 20 mg=1 tab, PO, Bedtime, X 30 day, # 30 tab, 0 Refill(s), Pharmacy: [facility] [id number] Active 12/04/2017 [facility] Metformin hydrochloride 500 MG Oral Tablet 500 mg=1 tab, PO, BID-Meals, X 30 day, # 60 tab, 0 Refill(s), Pharmacy: [facility] [id number] Active 12/04/2017 [facility] Accu-Chek Guide Blood Glucose Test Strips 1 ea, MISC, Daily, Use for blood glucose monitoring., # 100 ea, Not insulin dependent, Does not use insulin pump, Last DM eval date 12/04/17, 0 Refill(s) Active 12/04/2017 [facility] Accu-Chek FastClix Lancets 1 ea, MISC, Daily, Use for blood glucose monitoring., # 30 ea, Not insulin dependent, Does not use insulin pump, Last DM eval date 12/04/17, 0 Refill(s) Active 12/04/2017 [facility] Nebulizer 1 ea, MISC, ONCALL, # 1 ea, 0 Refill(s) Active 12/04/2017 [facility] Albuterol 0.83 MG/ML Inhalant Solution 2.49 mg=3 mL, INHALATION, Q6H, PRN wheezing, coughing, or shortness of breath, # 100 ea, 0 Refill(s), Pharmacy: [facility] [id number] Active 12/04/2017 [facility] Accu-Chek Guide Blood Glucose Meter 1 ea, MISC, ONCE, Use for blood glucose monitoring, # 1 ea, Not insulin dependent, Does not use insulin pump, Last DM eval date 12/04/17, 0 Refill(s) Active 12/04/2017 [facility] potassium chloride 20 mEq oral tablet, extended release 20 mEq=1 tab, PO, Daily, X 30 day, # 30 tab, 0 Refill(s), Pharmacy: [facility] [id number] Active 12/04/2017 [facility] valsartan 160 mg, 1 tab, Route: PO, Drug form: TAB, Daily, Dosing Weight 133.8, kg, Start date: 12/03/17 9:00:00 CDT, Duration: 30 day, Stop date: 01/01/18 9:00:00 CDTNotes: Same as Diovan No Longer Active 12/03/2017 [facility] Sodium Chloride 0.111 MEQ/ML Nasal Hay [Sea Mist] 2 spray, Route: NASAL, BID, Drug form: SOLN, Start date: 12/02/17 18:30:00 CDT, Duration: 2 day, Stop date: 12/04/17 17:00:00 CDTNotes: (Same as: Fellows, Deep Sea Nasal Hay). No Longer Active 12/02/2017 [facility] valsartan 80 mg, 1 tab, Route: PO, Drug form: TAB, Daily, Dosing Weight 133.8, kg, Start date: 12/02/17 9:00:00 CDT, Duration: 30 day, Stop date: 12/31/17 9:00:00 CDTNotes: Same as Diovan No Longer Active 12/02/2017 [facility] Aspirin 81 MG Enteric Coated Tablet 81 mg, 1 tab, Route: PO, Drug form: ECTAB, Daily, Dosing Weight 133.8, kg, Start date: 12/02/17 9:00:00 CDT, Duration: 30 day, Stop date: 12/31/17 9:00:00 CDTNotes: Do not crush or chew. (Same As: Ecotrin) No Longer Active 12/02/2017 [facility] Ambien 10 mg, 2 tab, Route: PO, Drug form: TAB, Bedtime, Dosing Weight 133.8, kg, PRN Insomnia, Start date: 12/02/17 0:23:00 CDT, Duration: 30 day, Stop date: 01/01/18 0:22:00 CDTNotes: (Same As: Ambien) No Longer Active 12/02/2017 [facility] carvedilol 12.5 mg, 1 tab, Route: PO, Drug form: TAB, Q12H, Dosing Weight 133.8, kg, Start date: 12/01/17 21:00:00 CDT, Duration: 30 day, Stop date: 12/31/17 9:00:00 CDTNotes: Give with food. (Same As: Coreg) No Longer Active 12/02/2017 [facility] Amitriptyline 25 mg, 1 tab, Route: PO, Drug form: TAB, Bedtime, Dosing Weight 133.8, kg, Start date: 12/01/17 21:00:00 CDT, Duration: 30 day, Stop date: 12/30/17 21:00:00 CDTNotes: (Same as: Elavil) No Longer Active 12/02/2017 [facility] atorvastatin 20 mg, 2 tab, Route: PO, Drug form: TAB, Bedtime, Dosing Weight 127.273, kg, Start date: 12/01/17 21:00:00 CDT, Duration: 30 day, Stop date: 12/30/17 21:00:00 CDTNotes: (Same As: Lipitor) No Longer Active 12/02/2017 [facility] Metoprolol 5 mg, 5 mL, Route: IV, Drug form: INJ, Q6H, Dosing Weight 133.8, kg, PRN Tachycardia, Start date: 12/01/17 18:38:00 CDT, Duration: 30 day, Stop date: 12/31/17 18:37:00 CDTNotes: (Same as: Lopressor) Push over 2 minutes No Longer Active 12/01/2017 [facility] Nitroglycerin 0.4 MG Sublingual Tablet 0.4 mg, 1 tab, Route: SL, Drug form: TAB, Q5Min, Dosing Weight 133.8, kg, PRN Chest Pain, Start date: 12/01/17 18:38:00 CDT, Duration: 30 day, Stop date: 12/31/17 18:37:00 CDTNotes: (Same as:Nitroquick, Nitrostat) "Do Not Crush" Sublingual tablet No Longer Active 12/01/2017 [facility] Hydralazine 10 mg, 0.5 mL, Route: IVP, Drug form: INJ, Q4H, Dosing Weight 133.8, kg, PRN Hypertension, Start date: 12/01/17 18:38:00 CDT, Duration: 30 day, Stop date: 12/31/17 18:37:00 CDTNotes: (Same as: Apreso line) Push over 5 minutes No Longer Active 12/01/2017 [facility] Miralax 17 gm, 1 pkt, Route: PO, Drug form: PWDR, Daily, Dosing Weight 133.8, kg, Start date: 12/01/17 16:00:00 CDT, Duration: 30 day, Stop date: 12/31/17 9:00:00 CDTNotes: Dissolve in 8 oz of water or juice. (Same as: Miralax) No Longer Active 12/01/2017 [facility] Aspirin 81 mg, 1 tab, Route: PO, Drug form: ECTAB, Daily, Dosing Weight 127.273, kg, Start date: 12/01/17 9:00:00 CDT, Duration: 30 day, Stop date: 12/30/17 9:00:00 CDTNotes: Do not crush or chew. (Same As: Ecotrin) No Longer Active 12/01/2017 [facility] Glucagon 1 mg, Route: IM, Drug form: PDR/INJ, PRN, Dosing Weight 133.8, kg, PRN Blood Glucose Results, Start date: 12/01/17 0:29:00 CDT, Duration: 30 day, Stop date: 12/31/17 0:28:00 CDT No Longer Active 12/01/2017 [facility] Dextrose 50% Syringe 25 gm, 50 mL, Route: IVP, Drug Form: INJ, Dosing Weight 133.8, kg, PRN, PRN Blood Glucose Results, Start date: 12/01/17 0:29:00 CDT, Duration: 30 day, Stop date: 12/31/17 0:28:00 CDT No Longer Active 12/01/2017 [facility] Insulin Lispro 5 unit, 0.05 mL, Route: [...] days from Date No Longer Active 12/01/2017 [facility] hydrocortisone sodium phosphate INJ 40 mg, 0.8 mL, Route: IVP, Drug form: PDR/INJ, Q6H, Dosing Weight 133.8, kg, Start date: 12/01/17 0:00:00 CDT, Duration: 30 day, Stop date: 12/30/17 18:00:00 CDTNotes: (Same as: Hudson) Inactive 12/01/2017 [facility] Acetaminophen 325 MG / Hydrocodone Bitartrate 5 MG Oral Tablet [Cubero 5/325] 1 tab, Route: PO, Drug Form: TAB, Dosing Weight 133.8, kg, Q4H, PRN Pain Score 1-3, Start date: 11/30/17 23:36:00 CDT, Duration: 30 day, Stop date: 12/30/17 23:35:00 CDTNotes: (Same as: Cubero 325/5) Do not exceed 4gm/day of acetaminophen. No Longer Active 12/01/2017 [facility] Albuterol 0.833 MG/ML / Ipratropium [place] 0.167 MG/ML Inhalant Solution [DuoNeb] 3 ml, Route: NEB, Drug Form: SOLN, Dosing Weight 133.8, kg, Q6H, PRN Respiratory Protocol, Start date: 11/30/17 23:29:00 CDT, Duration: 30 day, Stop date: 12/30/17 23:28:00 CDTNotes: (Same as: Duoneb) No Longer Active 12/01/2017 [facility] tramadol hydrochloride 50 MG Oral Tablet 50 mg, 1 tab, Route: PO, Drug form: TAB, Q6H, Dosing Weight 127.273, kg, PRN Pain Score 1-3, Start date: 11/30/17 22:58:00 CDT, Duration: 30 day, Stop date: 12/30/17 22:57:00 CDTNotes: Not to exceed 400mg/day. (Same As: Ultram) No Longer Active 12/01/2017 [facility] Lasix 60 mg, 6 mL, Route: IV, Drug form: INJ, Q8Hnow, Dosing Weight 127.273, kg, Start date: 11/30/17 22:00:00 CDT, Duration: 30 day, Stop date: 12/30/17 14:00:00 CDTNotes: (Same as: Lasix) MEDICATION WASTE Product Size: 40 mg Product Wasted: ___ mg No Longer Active 12/01/2017 [facility] Enoxaparin 40 mg, 0.4 mL, Route: SUB-Q, Drug form: INJ, [id number], Dosing Weight 127.273, kg, Start date: 11/30/17 22:00:00 CDT, Duration: 30 day, Stop date: 12/29/17 22:00:00 CDTNotes: (Same as: Lovenox) No Longer Active 12/01/2017 [facility] Ondansetron 4 mg, 2 mL, Route: IVP, Drug form: INJ, Q6H, Dosing Weight 127.273, kg, PRN Nausea & Vomiting, Start date: 11/30/17 21:35:00 CDT, Duration: 30 day, Stop date: 12/30/17 21:34:00 CDTNotes: (Same as: Zofran) MEDICATION WASTE Product Size: 4 mg Product Wasted: ___ mg No Longer Active 12/01/2017 [facility] Acetaminophen 650 mg, 2 tab, Route: PO, Drug form: TAB, Q4H, Dosing Weight 127.273, kg, PRN Pain 1-3/Temp > 100.4 F, Start date: 11/30/17 21:35:00 CDT, Duration: 30 day, Stop date: 12/30/17 21:34:00 CDTNotes: Do not exceed 4 gm/day. (Same as: Tylenol) No Longer Active 12/01/2017 [facility] Aspirin 324 mg, 4 tab, Route: CHEW, Drug form: CHEWTAB, ONCE, Dosing Weight 127.273, kg, Priority: STAT, Start date: 11/30/17 21:10:00 CDT, Stop date: 11/30/17 21:10:00 CDTNotes: Take with food. Inactive 12/01/2017 [facility] Lasix 40 mg, 4 mL, Route: IVP, Drug form: INJ, ONCE, Dosing Weight 127.273, kg, Priority: STAT, Start date: 11/30/17 20:08:00 CDT, Stop date: 11/30/17 20:08:00 CDTNotes: (Same as: Lasix) MEDICATION WASTE Product Size: 40 mg Product Wasted: ___ mg Inactive 12/01/2017 [facility] Zofran ODT 4 mg, Route: PO, Drug form: TABDIS, ONCE, Dosing Weight 127.273, kg, Priority: STAT, Start date: 11/30/17 19:59:00 CDT, Stop date: 11/30/17 19:59:00 CDT Inactive 12/01/2017 [facility] Morphine 4 mg, Route: IVP, ONCE, Dosing Weight 127.273, kg, Priority: STAT, Start date: 11/30/17 19:59:00 CDT, Stop date: 11/30/17 19:59:00 CDT Inactive 12/01/2017 [facility] Ativan 1 mg, Route: IVP, Drug form: INJ, ONCE, Dosing Weight 127.273, kg, Priority: STAT, Start date: 11/30/17 19:58:00 CDT, Stop date: 11/30/17 19:58:00 CDT Inactive 12/01/2017 [facility] Saline Flush 0.9% 10 mL, Route: IVP, Drug Form: INJ, Dosing Weight 127.273, kg, PRN, PRN Line Flush, Start date: 11/30/17 19:46:00 CDT, Duration: 30 day, Stop date: 12/30/17 19:45:00 CDTNotes: (Same as: BD Posiflush) No Longer Active 12/01/2017 [facility] valsartan 80 mg oral tablet 40 mg=0.5 tab, PO, Q12H, # 30 tab, 0 Refill(s), Pharmacy: [facility] [id number] No Longer Active 11/08/2017 [facility] Furosemide 40 MG Oral Tablet [Lasix] 40 mg=1 tab, PO, Daily, # 30 tab, 1 Refill(s), Pharmacy: [facility] [id number] No Longer Active 11/08/2017 [facility] carvedilol 12.5 mg oral tablet 12.5 mg=1 tab, PO, Q12H, # 60 tab, 1 Refill(s), Pharmacy: [facility] [id number] No Longer Active 11/08/2017 [facility] Aspirin 81 MG Enteric Coated Tablet 81 mg=1 tab, PO, Daily, # 30 tab, 1 Refill(s), Pharmacy: [facility] [id number] Active 11/08/2017 [facility] Furosemide 40 MG Oral Tablet [Lasix] 40 mg, 1 tab, Route: PO, Drug form: TAB, Daily, Dosing Weight 119.545, kg, Start date: 11/07/17 9:57:00 CDT, Duration: 30 day, Stop date: 12/07/17 9:00:00 CDTNotes: (Same as: Lasix) May cause GI upset. Give with food or milk. No Longer Active 11/07/2017 [facility] valsartan 40 mg, 0.5 tab, Route: PO, Drug form: TAB, Q12H, Dosing Weight 119.545, kg, Start date: 11/07/17 9:56:00 CDT, Duration: 30 day, Stop date: 12/07/17 9:00:00 CDTNotes: Same as Diovan No Longer Active 11/07/2017 [facility] Nitroglycerin 0.4 mg, 1 tab, Route: SL, Drug form: TAB, Q5Min, Dosing Weight 119.545, kg, PRN Chest Pain, Start date: 11/07/17 9:46:00 CDT, Duration: 3 doses or times, Stop date: Limited # of timesNotes: (Same as: Nitroquick, Nitrostat) "Do Not Crush" Sublingual tablet No Longer Active 11/07/2017 [facility] Sodium Chloride 0.9% (Bolus) IV 250 mL, 250 ml/hr, Infuse Over: 1 hr, Route: IV, 250, Drug form: INJ, ONCALL, Priority: Routine, Dosing Weight 119.545 kg, Start date: 11/07/17 9:00:00 CDT, Duration: 1 doses or times No Longer Active 11/07/2017 [place] Sodium Chloride 0.9% IV 750 mL 750 mL, Rate: 75 ml/hr, Infuse over: 10 hr, Route: IV, Dosing Weight 119.545 kg, Total Volume: 750, Start date: 11/07/17 8:11:00 CDT, Duration: 24 hr, Stop date: 11/08/17 8:10:00 CDT, 2.47, m2 Inactive 11/07/2017 [facility] Aspirin 81 mg, 1 tab, Route: PO, Drug form: ECTAB, Daily, Dosing Weight 119.545, kg, Start date: 11/06/17 13:01:00 CDT, Duration: 30 day, Stop date: 12/06/17 9:00:00 CDTNotes: Do not crush or chew. (Same As: Ecotrin) No Longer Active 11/06/2017 [facility] Sodium Chloride 0.9% (titrate) 1,000 mL 1,000 mL, Rate: 50 ml/hr, Infuse over: 20 hr, Dosing Weight 119.545, kg, Route: IV, Total Volume: 1,000, Start Date: 11/06/17 12:22:00 CDT, Duration: 30 day, Stop date: 12/06/17 12:21:00 CDT, Replace Every: 20 hr No Longer Active 11/06/2017 [facility] sodium chloride nasal spray 1 spray, Route: Each Affected Nostril, PRN, Drug form: SOLN, PRN Congestion, Start date: 11/06/17 11:04:00 CDT, Duration: 30 day, Stop date: 12/06/17 11:03:00 CDTNotes: (Same as: Fellows, Deep Sea Nasal Hay). No Longer Active 11/06/2017 [facility] carvedilol 12.5 mg, 1 tab, Route: PO, Drug form: TAB, Q12H, Dosing Weight 119.545, kg, Start date: 11/05/17 21:00:00 CDT, Duration: 30 day, Stop date: 12/05/17 9:00:00 CDTNotes: Give with food. (Same As: Coreg) No Longer Active 11/06/2017 [facility] Albuterol 0.83 MG/ML Inhalant Solution 2.49 mg, 3 mL, Route: NEB, Drug form: SOLN, PRN, Dosing Weight 119.545, kg, PRN Respiratory Protocol, Start date: 11/05/17 14:59:00 CDT, Duration: 30 day, Stop date: 12/05/17 14:58:00 CDTNotes: SEE RT DOCUMENTATION (Same as: Proventil) No Longer Active 11/05/2017 [facility] Acetaminophen 325 MG / Hydrocodone Bitartrate 10 MG Oral Tablet [Cubero 10/325] 1 tab, PO, Q6H, knee and back pain, 0 Refill(s) Active 11/05/2017 [facility] amitriptyline 25 mg oral tablet 25 mg=1 tab, PO, Bedtime, # 30 tab, 1 Refill(s) Active 11/05/2017 [facility] Ambien 10 mg, PO, Bedtime, 0 Refill(s) Active 11/05/2017 [facility] meloxicam 15 mg oral tablet 15 mg=1 tab, PO, Daily, # 30 tab, 0 Refill(s) Active 11/05/2017 [facility] Hydrochlorothiazide 12.5 mg, 1 cap, Route: PO, Drug form: CAP, Daily, Dosing Weight 119.545, kg, Start date: 11/05/17 13:14:00 CDT, Duration: 30 day, Stop date: 12/05/17 9:00:00 CDTNotes: (Same as: Microzide) With food. No Longer Active 11/05/2017 [facility] Enoxaparin 40 mg, 0.4 mL, Route: SUB-Q, Drug form: INJ, [id number], Dosing Weight 119.545, kg, Start date: 11/05/17 11:00:00 CDT, Duration: 30 day, Stop date: 12/04/17 11:00:00 CDTNotes: (Same as: Lovenox) No Longer Active 11/05/2017 [facility] Lasix 40 mg, 4 mL, Route: IVP, Drug form: INJ, Daily, Dosing Weight 119.545, kg, Start date: 11/05/17 10:55:00 CDT, Duration: 30 day, Stop date: 12/05/17 9:00:00 CDTNotes: (Same as: Lasix) MEDICATION WASTE Product Size: 40 mg Product Wasted: ___ mg No Longer Active 11/05/2017 [facility] Acetaminophen 325 MG / Hydrocodone Bitartrate 5 MG Oral Tablet 1 tab, Route: PO, Drug Form: TAB, Dosing Weight 119.545, kg, Q4H, PRN Pain Score 4-6, Start date: 11/05/17 6:26:00 CDT, Duration: 30 day, Stop date: 12/05/17 6:25:00 CDTNotes: (Same as: Cubero 325/5) Do not exceed 4gm/day of acetaminophen. No Longer Active 11/05/2017 [facility] Morphine 2 mg, 2 mL, Route: IVP, Drug form: SOLN, Q4H, Dosing Weight 119.545, kg, PRN Pain Score 7-10, Start date: 11/05/17 6:26:00 CDT, Duration: 30 day, Stop date: 12/05/17 6:25:00 CDTNotes: Preservative free. (Same as: Morphine Sulfate-PF) No Longer Active 11/05/2017 [facility] Ondansetron 4 mg, 2 mL, Route: IVP, Drug form: INJ, Q6H, Dosing Weight 119.545, kg, PRN Nausea & Vomiting, Start date: 11/05/17 6:26:00 CDT, Duration: 30 day, Stop date: 12/05/17 6:25:00 CDTNotes: (Same as: Zofran) MEDICATION WASTE Product Size: 4 mg Product Wasted: ___ mg No Longer Active 11/05/2017 [facility] Lasix 20 mg, 2 mL, Route: IVP, Drug form: INJ, ONCE, Dosing Weight 119.545, kg, Start date: 11/05/17 6:26:00 CDT, Stop date: 11/05/17 6:26:00 CDTNotes: (Same as: Lasix) Inactive 11/05/2017 [facility] Albuterol 0.833 MG/ML / Ipratropium Lincoln 0.167 MG/ML Inhalant Solution [DuoNeb] 3 mL, Route: NEB, Drug Form: SOLN, Dosing Weight 119.545, kg, ONCE, Start date: 11/05/17 4:47:00 CDT, Stop date: 11/05/17 4:47:00 CDTNotes: (Same as: Duoneb) Inactive 11/05/2017 [facility] Sodium Chloride 0.9% (Bolus) IV 500 mL, Infuse Over: 1 hr, Route: IV, ONCE, Priority: STAT, Dosing Weight 119.545 kg, Start date: 11/05/17 4:21:00 CDT, Stop date: 11/05/17 4:21:00 CDT Inactive 11/05/2017 [facility] Albuterol 0.83 MG/ML Inhalant Solution 2.49 mg, Route: NEB, Drug form: SOLN, ONCE, Dosing Weight 119.545, kg, Priority: STAT, Start date: 11/05/17 3:50:00 CDT, Stop date: 11/05/17 3:50:00 CDT Inactive 11/05/2017 [facility] Albuterol 0.833 MG/ML / Ipratropium Lincoln 0.167 MG/ML Inhalant Solution [DuoNeb] 3 mL, Route: NEB, Dosing Weight 119.545, kg, ONCE, Start date: 11/05/17 3:49:00 CDT, Stop date: 11/05/17 3:49:00 CDT Inactive 11/05/2017 [facility] Nitroglycerin 0.4 mg, Route: SL, ONCE, Dosing Weight 119.545, kg, Priority: STAT, Start date: 11/05/17 3:48:00 CDT, Stop date: 11/05/17 3:48:00 CDT Inactive 11/05/2017 [facility] methylPREDNISolone SODium SUCCinate 125 mg, 2 mL, Route: IVP, Drug form: INJ, ONCE, Dosing Weight 119.545, kg, Priority: STAT, Start date: 11/05/17 3:32:00 CDT, Stop date: 11/05/17 3:32:00 CDTNotes: (Same as:Solu- MEDROL, A-Methapred) Inactive 11/05/2017 [facility] Saline Flush 0.9% 10 mL, Route: IVP, Drug Form: INJ, Dosing Weight 119.545, kg, PRN, PRN Line Flush, Start date: 11/05/17 3:32:00 CDT, Duration: 30 day, Stop date: 12/05/17 3:31:00 CDTNotes: (Same as: BD Posiflush) No Longer Active 11/05/2017 [facility] Nitroglycerin 0.4 mg, 1 tab, Route: SL, Drug form: TAB, ONCE, Dosing Weight 119.545, kg, Priority: STAT, Start date: 11/05/17 3:31:00 CDT, Stop date: 11/05/17 3:31:00 CDTNotes: (Same as:Nitroquick, Nitrostat) "Do Not Crush" Sublingual tablet Inactive 11/05/2017 [facility] Aspirin 325 mg, 1 tab, Route: PO, Drug form: TAB, ONCE, Dosing Weight 119.545, kg, Priority: STAT, Start date: 11/05/17 3:31:00 CDT, Stop date: 11/05/17 3:31:00 CDTNotes: Take with food. Inactive 11/05/2017 [facility] Allergies, Adverse Reactions, Alerts Substance Category Reaction Severity Reaction type Status Date Reported Comments Source penicillins Assertion Drug allergy Active [facility] lisinopril Assertion Drug allergy Active [facility] Immunizations Immunization Date Given Site Status Last Updated Comments Source pneumococcal 23-valent vaccine 02/01/2018 Left Deltoid completed Joann [facility] Results Order Name Results Value Reference Range [...] should be multiplied by the estimated BMI. [facility] CHEM PANEL Glucose Lvl 412 mg/dL 70 - 99 09/09/2018 Result Comment: Critical Result(s) called to CHARU _ at09/09/2018 06:03 _ by_pb. [facility] Chlor[facility] 95 meq/L 95 - 109 09/09/[address] [facility] CO2 33 meq/L 24 - 32 09/09/2018 [facility] CHEM PANEL BUN 19 mg/dL 7 - 22 09/09/[address] [facility] Creatinine Lvl 1.45 mg/dL 0.50 - 1.40 09/09/2018 [facility] CHEM PANEL Sodium Lvl 132 meq/L 135 - 145 09/09/2018 [facility] CHEM PANEL Potassium Lvl 5.0 meq/L 3.5 - 5.1 09/09/2018 [facility] CHEM PANEL AGAP 9.0 meq/L 10.0 - 20.0 09/09/2018 [facility] CHEM PANEL Calcium Lvl 9.1 mg/dL 8.5 - 10.5 09/09/2018 [facility] CHEM PANEL Magnesium Lvl 2.3 mg/dL 1.8 - 2.4 09/09/2018 [facility] CHEM PANEL Phosphorus 5.2 mg/dL 2.5 - 4.5 09/09/2018 [facility] HEMATOLOGY Lymphocytes 18.7 % 20.0 - 40.0 09/09/2018 [facility] HEMATOLOGY Monocytes 5.8 % 2.0 - 12.0 09/09/2018 [facility] HEMATOLOGY Basophils 0.4 % 0.0 - 1.0 09/09/2018 [facility] HEMATOLOGY Neutrophils # 5.2 K/CMM 1.5 - 8.1 09/09/2018 [facility] HEMATOLOGY Lymphocytes # 1.3 K/CMM 1.0 - 5.5 09/09/2018 [facility] HEMATOLOGY Segs 75.1 % 45.0 - 75.0 09/09/2018 [facility] HEMATOLOGY Monocytes # 0.4 K/CMM 0.0 - 0.8 09/09/2018 [facility] HEMATOLOGY WBC 6.9 K/CMM 3.7 - 10.4 09/09/2018 [facility] RDW 15.6 % 11.5 - 14.5 09/09/2018 [facility] Platelet 288 K/CMM 133 - 450 09/09/2018 [facility] MPV 7.7 fL 7.4 - 10.4 09/09/2018 [facility] RBC 5.05 M/CMM 4.70 - 6.10 09/09/2018 [facility] Hgb 15.0 g/dL 14.0 - 18.0 09/09/2018 [facility] Hct 46.4 % 42.0 - 54.0 09/09/2018 [facility] MCV 91.8 fL 80.0 - 94.0 09/09/2018 [facility] MCH 29.6 pg 27.0 - 31.0 09/09/2018 [facility] MCHC 32.2 g/dL 32.0 - 36.0 09/09/2018 [facility] CARDIAC ENZYMES CK MB 2.4 ng/mL 0.5 - 3.6 09/09/2018 [facility] CARDIAC ENZYMES Troponin-I 0.04 ng/mL 0.00 - 0.40 09/09/2018 [facility] BACTERIAL - SEROLOGY MRSA by PCR Negative (09/08/18 10:25 PM) 09/09/2018 [facility] CARDIAC ENZYMES CK MB 3.1 ng/mL 0.5 - 3.6 09/09/2018 [facility] CARDIAC ENZYMES Troponin-I 0.06 ng/mL 0.00 - 0.40 09/09/2018 [facility] CARDIAC ENZYMES Troponin-I 0.08 ng/mL 0.00 - 0.40 09/08/2018 [facility] Chest CTA Chest CTA Clinical Indication: - [...] pulmonary embolism or thoracic aortic dissection. SL: [id number] 09/08/2018 - - Read by: Jefry Villa MD Dictated Date/time: 09/08/18 17:40 Electronically Signed by: Jefry Villa MD 09/08/18 17:44 FINAL REPORT [facility] CARDIAC ENZYMES BNP 68 pg/mL <=100 pg/mL 09/08/2018 [facility] CARDIAC ENZYMES proBNP 265 pg/mL 0 - 125 09/08/2018 [facility] ELECTROLYTES AGAP 9.4 meq/L 10.0 - 20.0 09/08/2018 [facility] ELECTROLYTES Globulin 4.3 g/dL 2.7 - 4.2 09/08/2018 [facility] ELECTROLYTES A/G Ratio 0.9 0.7 - 1.6 09/08/2018 [facility] ELECTROLYTES B/C Ratio 14 6 - 25 09/08/2018 [facility] ELECTROLYTES eGFR 106 mL/min/1.73m2 09/08/2018 Result Comment: [...] should be multiplied by the estimated BMI. [facility] ELECTROLYTES Bili Total 0.5 mg/dL 0.2 - 1.3 09/08/2018 [facility] ELECTROLYTES BUN 13 mg/dL 7 - 22 09/08/2018 [facility] ELECTROLYTES Sodium Lvl 136 meq/L 135 - 145 09/08/2018 [facility] ELECTROLYTES Creatinine Lvl 0.96 mg/dL 0.50 - 1.40 09/08/2018 [facility] ELECTROLYTES Potassium Lvl 4.4 meq/L 3.5 - 5.1 09/08/2018 [facility] ELECTROLYTES Chloride Lvl 99 meq/L 95 - 109 09/08/2018 [facility] ELECTROLYTES CO2 32 meq/L 24 - 32 09/08/2018 [facility] ELECTROLYTES Glucose Lvl 235 mg/dL 70 - 99 09/08/2018 [facility] ELECTROLYTES AST 11 unit/L 0 - 37 09/08/2018 [facility] ELECTROLYTES Alk Phos 78 unit/L 39 - 136 09/08/2018 [facility] ELECTROLYTES Calcium Lvl 9.0 mg/dL 8.5 - 10.5 09/08/2018 [facility] ELECTROLYTES Albumin Lvl 3.9 g/dL 3.5 - 5.0 09/08/2018 [facility] ELECTROLYTES Total Protein 8.2 g/dL 6.4 - 8.4 09/08/2018 [facility] ELECTROLYTES ALT 21 unit/L 0 - 65 09/08/2018 [facility] HEMATOLOGY MCH 29.8 pg 27.0 - 31.0 09/08/2018 [facility] HEMATOLOGY RDW 15.2 % 11.5 - 14.5 09/08/2018 [facility] MCHC 33.6 g/dL 32.0 - 36.0 09/08/2018 [facility] HEMATOLOGY MCV 88.7 fL 80.0 - 94.0 09/08/2018 [facility] Platelet 246 K/CMM 133 - 450 09/08/2018 [facility] MPV 7.8 fL 7.4 - 10.4 09/08/2018 [facility] WBC 5.9 K/CMM 3.7 - 10.4 09/08/2018 [facility] RBC 5.32 M/CMM 4.70 - 6.10 09/08/2018 [facility] Hct 47.2 % 42.0 - 54.0 09/08/2018 [facility] Hgb 15.9 g/dL 14.0 - 18.0 09/08/2018 [facility] D-Dimer 0.34 ug/mL FEU 09/08/2018 [facility] Lymphocytes 35.5 % 20.0 - 40.0 09/08/2018 [facility] Monocytes 8.6 % 2.0 - 12.0 09/08/2018 [facility] Segs 53.5 % 45.0 - 75.0 09/08/2018 [facility] Monocytes # 0.5 K/CMM 0.0 - 0.8 09/08/2018 [facility] Eosinophils # 0.1 K/CMM 0.0 - 0.5 09/08/2018 [facility] Neutrophils # 3.2 K/CMM 1.5 - 8.1 09/08/2018 [facility] Basophils 0.6 % 0.0 - 1.0 09/08/2018 [facility] Lymphocytes # 2.1 K/CMM 1.0 - 5.5 09/08/2018 [facility] Eosinophils 1.8 % 0.0 - 4.0 09/08/2018 [facility] Chest 1view DX Chest 1view DX EXAM: Chest 1view DX DATE: 09/08/2018 9:13 [employer] INDICATION: - Chest pain shortness of breath COMPARISON: 05/29/2018. IMPRESSION: Stable cardiac silhouette and mediastinum. Low lung volume. No focal consolidation, significant pleural effusion or pneumothorax. SL: [id number] 09/08/2018 - - Read by: Florentino Hester MD Dictated Date/time: 09/08/18 09:48 Electronically Signed by: Florentino Hester MD 09/08/18 09:48 FINAL REPORT [facility] Carotid artery Doppler bilat US Carotid artery Doppler bilat US Patient Name: FABIO CUEVA : 1965; Age: 52 years y/o Male MR: [id number] CAROTID DOPPLER Clinical Indication: - Slurred speech; [...] MD 05/29/18 22:22 FINAL REPORT [facility] Brain wo contrast CT Brain wo contrast CT Patient Name: FABIO CUEVA : 1965; Age: 52 years Male MR: [id number] Study: Brain wo contrast CT 05/29/2018 1:52 [...] No mass, hemorrhage or subacute stroke. SL: [id number] 05/29/2018 - - Read by: Ben Fink MD Dictated Date/time: 05/29/18 14:12 Electronically Signed by: Ben Fink MD 05/29/18 14:19 FINAL REPORT [facility] Chest 1view DX Chest 1view DX Patient Name: FABIO CUEVA : 1965; Age: 52 years Male MR: [id number] Study: Chest 1view DX Order Time: 05/29/2018 1:09 PM CDT CLINICAL INDICATION: - Dyspnea on exertion, orthopnea COMPARISON: Chest radiograph on 05/03/2018 FINDINGS: Lines: None. Lungs: Low lung volumes and bibasilar atelectasis. No effusion or pneumothorax. Mediastinum: The cardiac silhouette is within normal limits of size. Midline trachea. Bones and soft tissues: No acute abnormalities. IMPRESSION: No acute cardiopulmonary abnormalities. SL: [id number] 05/29/2018 - - Read by: Luz Maria Ochoa MD Dictated Date/time: 05/29/18 13:23 Electronically Signed by: Luz Maria Ochoa MD 05/29/18 13:23 FINAL REPORT [facility] Abdomen RUQ US Abdomen RUQ US RIGHT [...] Beni Escobar MD 05/04/18 00:01 FINAL REPORT [facility] Chest 1view DX Chest 1view DX Clinical [...] Robyn Thomason MD 05/03/18 21:52 FINAL REPORT [facility] Chest 1view DX Chest 1view DX Clinical [...] IMPRESSION: No acute infiltrates or effusions. SL: [id number] 03/31/2018 - - Read by: Antonio Palm MD Dictated Date/time: 04/01/18 00:06 Electronically Signed by: Antonio Palm MD 04/01/18 00:08 FINAL REPORT [facility] Chest CTA Chest CTA Patient Name: FABIO CUEVA : 1965; Age: 52 years y/o Male MR: [id number] Study: Chest CTA 03/29/2018 10:46 AM CDT [...] size -Use of iterative reconstruction technique Dose: BRE=531.23 mGy-cm FINDINGS: LUNG PARENCHYMA AND PLEURA: The [...] MD 03/29/18 12:23 FINAL REPORT [facility] Chest 1view DX Chest 1view DX Study: [...] unremarkable. IMPRESSION: No acute cardiopulmonary disease. SL: [id number] 03/26/2018 - - Read by: Jackie Heller MD Dictated Date/time: 03/26/18 20:10 Electronically Signed by: Jackie Heller MD 03/26/18 20:10 FINAL REPORT [facility] ELECTROLYTES AGAP 13.2 meq/L 10.0 - 20.0 02/03/2018 [facility] ELECTROLYTES eGFR 89 mL/min/1.73m2 02/03/2018 Result Comment: [...] should be multiplied by the estimated BMI. [facility] ELECTROLYTES Sodium Lvl 137 meq/L 135 - 145 02/03/2018 [facility] ELECTROLYTES Creatinine Lvl 1.10 mg/dL 0.50 - 1.40 02/03/2018 [facility] ELECTROLYTES Glucose Lvl 160 mg/dL 70 - 99 02/03/2018 [facility] ELECTROLYTES BUN 26 mg/dL 7 - 22 02/03/2018 [facility] ELECTROLYTES Calcium Lvl 9.2 mg/dL 8.5 - 10.5 02/03/2018 [facility] ELECTROLYTES CO2 35 meq/L 24 - 32 02/03/2018 [facility] ELECTROLYTES Chloride Lvl 93 meq/L 95 - 109 02/03/2018 [facility] ELECTROLYTES Potassium Lvl 4.2 meq/L 3.5 - 5.1 02/03/2018 [facility] SPECIAL CHEMISTRY Hgb A1C 8.5 % <=5.6 % 02/03/2018 [facility] CHEM PANEL Magnesium Lvl 2.2 mg/dL 1.8 - 2.4 02/02/2018 [facility] CHEM PANEL Albumin Lvl 3.3 g/dL 3.5 - 5.0 02/02/2018 [facility] CHEM PANEL ALT 26 unit/L 0 - 65 02/02/2018 [facility] CHEM PANEL Potassium Lvl 4.5 meq/L 3.5 - 5.1 02/02/2018 [facility] CHEM PANEL Bili Total 0.4 mg/dL 0.2 - 1.3 02/02/2018 [facility] CHEM PANEL Alk Phos 69 unit/L 39 - 136 02/02/2018 [facility] CHEM PANEL AST 16 unit/L 0 - 37 02/02/2018 [facility] CHEM PANEL CO2 34 meq/L 24 - 32 02/02/2018 [facility] CHEM PANEL Chloride Lvl 95 meq/L 95 - 109 02/02/2018 [facility] CHEM PANEL eGFR 75 mL/min/1.73m2 02/02/2018 Result [...] should be multiplied by the estimated BMI. [facility] CHEM PANEL Total Protein 7.2 g/dL 6.4 - 8.4 02/02/2018 [facility] CHEM PANEL Calcium Lvl 9.2 mg/dL 8.5 - 10.5 02/02/2018 [facility] CHEM PANEL BUN 32 mg/dL 7 - 22 02/02/2018 [facility] CHEM PANEL Sodium Lvl 137 meq/L 135 - 145 02/02/2018 [facility] CHEM PANEL Creatinine Lvl 1.27 mg/dL 0.50 - 1.40 02/02/2018 [facility] CHEM PANEL Glucose Lvl 173 mg/dL 70 - 99 02/02/2018 [facility] CHEM PANEL AGAP 12.5 meq/L 10.0 - 20.0 02/02/2018 [facility] CHEM PANEL A/G Ratio 0.8 0.7 - 1.6 02/02/2018 [facility] CHEM PANEL Globulin 3.9 g/dL 2.7 - 4.2 02/02/2018 [facility] CHEM PANEL B/C Ratio 25 6 - 25 02/02/2018 [facility] HEMATOLOGY WBC 11.7 K/CMM 3.7 - 10.4 02/02/2018 [facility] HEMATOLOGY Platelet 258 K/CMM 133 - 450 02/02/2018 [facility] HEMATOLOGY RBC 4.71 M/CMM 4.70 - 6.10 02/02/2018 [facility] HEMATOLOGY MPV 7.6 fL 7.4 - 10.4 02/02/2018 [facility] HEMATOLOGY Hgb 14.1 g/dL 14.0 - 18.0 02/02/2018 [facility] MCH 29.9 pg 27.0 - 31.0 02/02/2018 [facility] HEMATOLOGY MCV 93.9 fL 80.0 - 94.0 02/02/2018 [facility] HEMATOLOGY Hct 44.3 % 42.0 - 54.0 02/02/2018 [facility] HEMATOLOGY RDW 14.1 % 11.5 - 14.5 02/02/2018 [facility] MCHC 31.9 g/dL 32.0 - 36.0 02/02/2018 [facility] HEMATOLOGY Eosinophils 0.1 % 0.0 - 4.0 02/02/2018 [facility] HEMATOLOGY Monocytes 8.6 % 2.0 - 12.0 02/02/2018 [facility] HEMATOLOGY Lymphocytes 20.8 % 20.0 - 40.0 02/02/2018 [facility] HEMATOLOGY Segs 70.2 % 45.0 - 75.0 02/02/2018 [facility] HEMATOLOGY Basophils 0.3 % 0.0 - 1.0 02/02/2018 [facility] HEMATOLOGY Segs-Bands # 8.2 K/CMM 1.5 - 8.1 02/02/2018 [facility] HEMATOLOGY Lymphocytes # 2.4 K/CMM 1.0 - 5.5 02/02/2018 [facility] HEMATOLOGY Monocytes # 1.0 K/CMM 0.0 - 0.8 02/02/2018 [facility] CARDIAC ENZYMES CK MB 5.4 ng/mL 0.5 - 3.6 02/01/2018 [facility] CARDIAC ENZYMES CK MB Index 1.3 0.0 - 2.5 02/01/2018 [facility] CARDIAC ENZYMES Troponin-I 0.05 ng/mL 0.00 - 0.40 02/01/2018 [facility] CARDIAC ENZYMES Total CK 422 unit/L 12 - 191 02/01/2018 [facility] BACTERIAL - SEROLOGY MRSA by PCR Negative (01/31/18 11:58 PM) 02/01/2018 [facility] DRUG SCREEN UDS Note See Note (01/31/18 11:58 PM) 02/01/2018 [facility] DRUG SCREEN U Phencyc Scr Negative *NA* (01/31/18 11:58 PM) Negative 02/01/2018 [facility] DRUG SCREEN U Opiate Scr Positive *ABN* (01/31/18 11:58 PM) Negative 02/01/2018 [facility] DRUG SCREEN U Elizabeth Scr Negative *NA* (01/31/18 11:58 PM) Negative 02/01/2018 [facility] DRUG SCREEN U Amph Scr Negative *NA* (01/31/18 11:58 PM) Negative 02/01/2018 [facility] DRUG SCREEN U Benzodia Scr Negative *NA* (01/31/18 11:58 PM) Negative 02/01/2018 [facility] DRUG SCREEN U Cannab Scr Negative *NA* (01/31/18 11:58 PM) Negative 02/01/2018 [facility] DRUG SCREEN U Cocaine Scr Negative *NA* (01/31/18 11:58 PM) Negative 02/01/2018 [facility] URINE AND STOOL UA Glucose null 02/01/2018 [facility] URINE AND STOOL UA Color STRAW 02/01/2018 [facility] URINE AND STOOL UA Urobilinogen <=1.0 mg/dL 0.1 - 1.0 02/01/2018 [facility] URINE AND STOOL UA Protein Negative mg/dL Negative mg/dL 02/01/2018 [facility] URINE AND STOOL UA Ketones Negative mg/dL Negative mg/dL 02/01/2018 [facility] URINE AND STOOL UA pH 6.0 5.0 - 8.0 02/01/2018 [facility] URINE AND STOOL UA Bili Negative *NA* (01/31/18 11:58 PM) Negative 02/01/2018 [facility] URINE AND STOOL UA Leuk Est Negative (01/31/18 11:58 PM) Negative 02/01/2018 [facility] URINE AND STOOL UA Blood Small *ABN* (01/31/18 11:58 PM) Negative 02/01/2018 [facility] URINE AND STOOL UA Nitrite Negative (01/31/18 11:58 PM) Negative 02/01/2018 [facility] URINE AND STOOL UA WBC 1 /HPF 0 - 5 02/01/2018 [facility] URINE AND STOOL UA RBC null 0 - 2 02/01/2018 [facility] URINE AND STOOL UA Sq Epi None Seen 02/01/2018 [facility] URINE AND STOOL UA Turbidity Clear (01/31/18 11:58 PM) Clear 02/01/2018 [facility] URINE AND STOOL UA Spec Grav 1.003 <=1.030 02/01/2018 [facility] CARDIAC ENZYMES Troponin-I 0.06 ng/mL 0.00 - 0.40 02/01/2018 [facility] CARDIAC ENZYMES Total CK 433 unit/L 12 - 02/01/2018 [facility] CARDIAC ENZYMES CK MB Index 1.4 0.0 - 2.5 02/01/2018 [facility] CARDIAC ENZYMES CK MB 5.9 ng/mL 0.5 - 3.6 02/01/2018 [facility] CARDIAC ENZYMES Total CK 534 unit/L 12 - 191 01/31/2018 [facility] CARDIAC ENZYMES Troponin-I 0.11 ng/mL 0.00 - 0.40 01/31/2018 [facility] CARDIAC ENZYMES CK MB Index 1.3 0.0 - 2.5 01/31/2018 [facility] CARDIAC ENZYMES proBNP 1159 pg/mL 0 - 125 01/31/2018 [facility] CARDIAC ENZYMES CK MB 6.9 ng/mL 0.5 - 3.6 01/31/2018 [facility] CHEM PANEL Lipase Lvl 146 unit/L 73 - 393 01/31/2018 [facility] CHEM PANEL eGFR 88 mL/min/1.73m2 01/31/2018 Result [...] should be multiplied by the estimated BMI. [facility] CHEM PANEL A/G Ratio 0.8 0.7 - 1.6 01/31/2018 [facility] CHEM PANEL Globulin 4.5 g/dL 2.7 - 4.2 01/31/2018 [facility] CHEM PANEL B/C Ratio 18 6 - 25 01/31/2018 [facility] CHEM PANEL AGAP 14.6 meq/L 10.0 - 20.0 01/31/[address] [facility] Alk Phos 80 unit/L 39 - 136 01/31/[address] [facility] Bili Total 0.7 mg/dL 0.2 - 1.3 01/31/[address] [facility] AST 35 unit/L 0 - 37 01/31/[address] [facility] BUN 20 mg/dL 7 - 22 01/31/[address] [facility] Glucose Lvl 133 mg/dL 70 - 99 01/31/2018 [facility] CHEM PANEL ALT 25 unit/L 0 - 65 01/31/2018 [facility] CHEM PANEL Chloride Lvl 91 meq/L 95 - 109 01/31/2018 [facility] CHEM PANEL Total Protein 8.3 g/dL 6.4 - 8.4 01/31/2018 [facility] CHEM PANEL CO2 27 meq/L 24 - 32 01/31/2018 [facility] CHEM PANEL Calcium Lvl 8.8 mg/dL 8.5 - 10.5 01/31/2018 [facility] CHEM PANEL Albumin Lvl 3.8 g/dL 3.5 - 5.0 01/31/2018 [facility] CHEM PANEL Creatinine Lvl 1.11 mg/dL 0.50 - 1.40 01/31/2018 [facility] CHEM PANEL Sodium Lvl 128 meq/L 135 - 145 01/31/2018 [facility] CHEM PANEL Potassium Lvl 4.6 meq/L 3.5 - 5.1 01/31/2018 [facility] HEMATOLOGY Monocytes 7.2 % 2.0 - 12.0 01/31/2018 [facility] HEMATOLOGY Segs 57.4 % 45.0 - 75.0 01/31/2018 [facility] HEMATOLOGY Lymphocytes 33.8 % 20.0 - 40.0 01/31/2018 [facility] HEMATOLOGY Lymphocytes # 2.6 K/CMM 1.0 - 5.5 01/31/2018 [facility] HEMATOLOGY Eosinophils 1.1 % 0.0 - 4.0 01/31/2018 [facility] HEMATOLOGY Segs-Bands # 4.5 K/CMM 1.5 - 8.1 01/31/2018 [facility] HEMATOLOGY Basophils 0.5 % 0.0 - 1.0 01/31/2018 [facility] HEMATOLOGY Eosinophils # 0.1 K/CMM 0.0 - 0.5 01/31/2018 [facility] HEMATOLOGY Monocytes # 0.6 K/CMM 0.0 - 0.8 01/31/2018 [facility] HEMATOLOGY Hgb 15.4 g/dL 14.0 - 18.0 01/31/2018 [facility] HEMATOLOGY Hct 45.4 % 42.0 - 54.0 01/31/2018 [facility] HEMATOLOGY RBC 5.03 M/CMM 4.70 - 6.10 01/31/2018 [facility] HEMATOLOGY WBC 7.8 K/CMM 3.7 - 10.4 01/31/2018 [facility] HEMATOLOGY MCV 90.3 fL 80.0 - 94.0 01/31/2018 [facility] HEMATOLOGY MCH 30.6 pg 27.0 - 31.0 01/31/2018 [facility] HEMATOLOGY Platelet 269 K/CMM 133 - 450 01/31/2018 [facility] HEMATOLOGY MPV 7.4 fL 7.4 - 10.4 01/31/2018 [facility] HEMATOLOGY RDW 13.8 % 11.5 - 14.5 01/31/2018 [facility] HEMATOLOGY MCHC 33.9 g/dL 32.0 - 36.0 01/31/2018 [facility] CHEM PANEL eGFR 87 mL/min/1.73m2 01/09/2018 Result [...] should be multiplied by the estimated BMI. [facility] CHEM PANEL BUN 24 mg/dL 7 - 22 01/09/[address] [facility] Creatinine Lvl 1.13 mg/dL 0.50 - 1.40 01/09/[address] [facility] Potassium Lvl 4.0 meq/L 3.5 - 5.1 01/09/2018 [facility] CHEM PANEL Sodium Lvl 139 meq/L 135 - 145 01/09/2018 [facility] CHEM PANEL Chloride Lvl 99 meq/L 95 - 109 01/09/2018 [facility] CHEM PANEL CO2 33 meq/L 24 - 32 01/09/2018 [facility] CHEM PANEL Calcium Lvl 9.0 mg/dL 8.5 - 10.5 01/09/[address] [facility] Glucose Lvl 162 mg/dL 70 - 99 01/09/[address] [facility] AGAP 11.0 meq/L 10.0 - 20.0 01/09/2018 [facility] CHEM PANEL Magnesium Lvl 2.1 mg/dL 1.8 - 2.4 01/09/2018 [facility] Hgb 15.0 g/dL 14.0 - 18.0 01/09/2018 [facility] RBC 4.88 M/CMM 4.70 - 6.10 01/09/2018 [facility] WBC 9.0 K/CMM 3.7 - 10.4 01/09/2018 [facility] Hct 44.1 % 42.0 - 54.0 01/09/2018 [facility] MCV 90.4 fL 80.0 - 94.0 01/09/2018 [facility] Platelet 254 K/CMM 133 - 450 01/09/2018 [facility] RDW 14.2 % 11.5 - 14.5 01/09/2018 [facility] MCH 30.8 pg 27.0 - 31.0 01/09/2018 [facility] MCHC 34.1 g/dL 32.0 - 36.0 01/09/2018 [facility] MPV 7.5 fL 7.4 - 10.4 01/09/2018 [facility] Segs 50.9 % 45.0 - 75.0 01/09/2018 [facility] Lymphocytes 39.2 % 20.0 - 40.0 01/09/2018 [facility] Monocytes 9.0 % 2.0 - 12.0 01/09/2018 [facility] Segs-Bands # 4.6 K/CMM 1.5 - 8.1 01/09/2018 [facility] Lymphocytes # 3.5 K/CMM 1.0 - 5.5 01/09/2018 [facility] Eosinophils 0.4 % 0.0 - 4.0 01/09/2018 [facility] Basophils 0.5 % 0.0 - 1.0 01/09/2018 [facility] Monocytes # 0.8 K/CMM 0.0 - 0.8 01/09/2018 [facility] CHEM PANEL Magnesium Lvl 2.1 mg/dL 1.8 - 2.4 01/08/2018 [facility] CHEM PANEL eGFR 87 mL/min/1.73m2 01/08/2018 Result [...] should be multiplied by the estimated [facility] Sodium Lvl 138 meq/L 135 - 145 01/08/[address] [facility] CO2 35 meq/L 24 - 32 01/08/2018 [facility] CHEM PANEL Potassium Lvl 3.9 meq/L 3.5 - 5.1 01/08/2018 [facility] CHEM PANEL Creatinine Lvl 1.13 mg/dL 0.50 - 1.40 01/08/2018 [facility] CHEM PANEL Chloride Lvl 98 meq/L 95 - 109 01/08/2018 [facility] CHEM PANEL BUN 27 mg/dL 7 - 22 01/08/2018 [facility] CHEM PANEL Glucose Lvl 187 mg/dL 70 - 99 01/08/2018 [facility] CHEM PANEL Calcium Lvl 9.1 mg/dL 8.5 - 10.5 01/08/2018 [facility] CHEM PANEL AGAP 8.9 meq/L 10.0 - 20.0 01/08/2018 [facility] HEMATOLOGY MPV 7.3 fL 7.4 - 10.4 01/08/2018 [facility] HEMATOLOGY RBC 4.64 M/CMM 4.70 - 6.10 01/08/2018 [facility] HEMATOLOGY Platelet 261 K/CMM 133 - 450 01/08/2018 [facility] HEMATOLOGY Hgb 14.2 g/dL 14.0 - 18.0 01/08/2018 [facility] HEMATOLOGY Hct 42.1 % 42.0 - 54.0 01/08/2018 [facility] HEMATOLOGY MCHC 33.7 g/dL 32.0 - 36.0 01/08/2018 [facility] HEMATOLOGY RDW 14.0 % 11.5 - 14.5 01/08/2018 [facility] HEMATOLOGY MCV 90.9 fL 80.0 - 94.0 01/08/2018 [facility] MCH 30.6 pg 27.0 - 31.0 01/08/2018 [facility] HEMATOLOGY WBC 8.8 K/CMM 3.7 - 10.4 01/08/2018 [facility] Monocytes # 0.8 K/CMM 0.0 - 0.8 01/08/2018 [facility] HEMATOLOGY Segs 59.3 % 45.0 - 75.0 01/08/2018 [facility] Lymphocytes 31.1 % 20.0 - 40.0 01/08/2018 [facility] Monocytes 8.9 % 2.0 - 12.0 01/08/2018 [facility] HEMATOLOGY Lymphocytes # 2.7 K/CMM 1.0 - 5.5 01/08/2018 [facility] Segs-Bands # 5.2 K/CMM 1.5 - 8.1 01/08/2018 [facility] Eosinophils 0.3 % 0.0 - 4.0 01/08/2018 [facility] Basophils 0.4 % 0.0 - 1.0 01/08/2018 [facility] Knee 1-2 Views unilateral DX Knee 1-2 Views unilateral DX Patient Name: FABIO CUEVA : 1965; Age: 52 years y/o Male MR: [id number] Study: 2 view right knee 01/07/2018 6:28 [...] 07:40 FINAL REPORT [facility] CHEM PANEL eGFR 81 mL/min/1.73m2 01/07/2018 Result [...] should be multiplied by the estimated BMI. [facility] CHEM PANEL Chloride Lvl 99 meq/L 95 - 109 01/07/2018 [facility] CHEM PANEL Sodium Lvl 137 meq/L 135 - 145 01/07/2018 [facility] CHEM PANEL Potassium Lvl 4.4 meq/L 3.5 - 5.1 01/07/2018 [facility] CHEM PANEL Calcium Lvl 9.4 mg/dL 8.5 - 10.5 01/07/2018 [facility] CHEM PANEL CO2 31 meq/L 24 - 32 01/07/2018 [facility] CHEM PANEL Glucose Lvl 308 mg/dL 70 - 99 01/07/2018 [facility] CHEM PANEL BUN 21 mg/dL 7 - 22 01/07/2018 [facility] CHEM PANEL Creatinine Lvl 1.19 mg/dL 0.50 - 1.40 01/07/2018 [facility] CHEM PANEL AGAP 11.4 meq/L 10.0 - 20.0 01/07/2018 [facility] HEMATOLOGY Monocytes # 0.4 K/CMM 0.0 - 0.8 01/07/2018 [facility] HEMATOLOGY Lymphocytes # 1.6 K/CMM 1.0 - 5.5 01/07/2018 [facility] HEMATOLOGY Segs-Bands # 8.1 K/CMM 1.5 - 8.1 01/07/2018 [facility] HEMATOLOGY Basophils 0.3 % 0.0 - 1.0 01/07/2018 [facility] HEMATOLOGY Segs 80.2 % 45.0 - 75.0 01/07/2018 [facility] HEMATOLOGY Lymphocytes 16.0 % 20.0 - 40.0 01/07/2018 [facility] HEMATOLOGY Monocytes 3.5 % 2.0 - 12.0 01/07/2018 [facility] HEMATOLOGY Platelet 268 K/CMM 133 - 450 01/07/2018 [facility] MPV 7.7 fL 7.4 - 10.4 01/07/2018 [facility] HEMATOLOGY WBC 10.1 K/CMM 3.7 - 10.4 01/07/2018 [facility] HEMATOLOGY RBC 4.78 M/CMM 4.70 - 6.10 01/07/2018 [facility] MCV 91.2 fL 80.0 - 94.0 01/07/2018 [facility] HEMATOLOGY Hgb 14.7 g/dL 14.0 - 18.0 01/07/2018 [facility] Hct 43.6 % 42.0 - 54.0 01/07/2018 [facility] MCHC 33.7 g/dL 32.0 - 36.0 01/07/2018 [facility] MCH 30.7 pg 27.0 - 31.0 01/07/2018 [facility] RDW 14.0 % 11.5 - 14.5 01/07/2018 [facility] CARDIAC ENZYMES Troponin-I 0.05 ng/mL 0.00 - 0.40 01/06/2018 [facility] CARDIAC ENZYMES Total CK 172 unit/L 12 - 01/06/2018 [facility] CARDIAC ENZYMES CK MB Index 2.4 0.0 - 2.5 01/06/2018 [facility] CARDIAC ENZYMES CK MB 4.1 ng/mL 0.5 - 3.6 01/06/2018 [facility] CHEM PANEL Magnesium Lvl 1.9 mg/dL 1.8 - 2.4 01/06/2018 [facility] CHEM PANEL Phosphorus 4.5 mg/dL 2.5 - 4.5 01/06/2018 [facility] CARDIAC ENZYMES CK MB Index 2.3 0.0 - 2.5 01/06/2018 [facility] CARDIAC ENZYMES CK MB 4.7 ng/mL 0.5 - 3.6 01/06/2018 [facility] CARDIAC ENZYMES Troponin-I 0.06 ng/mL 0.00 - 0.40 01/06/2018 [facility] CARDIAC ENZYMES Total CK 205 unit/L 12 - 191 01/06/2018 [facility] BACTERIAL - SEROLOGY MRSA by PCR Negative (6/3/18 6:47 AM) 01/06/2018 [facility] CARDIAC ENZYMES CK MB Index 2.1 0.0 - 2.5 01/06/2018 [facility] CARDIAC ENZYMES proBNP 219 pg/mL 0 - 125 01/06/2018 [facility] CARDIAC ENZYMES Total CK 249 unit/L 12 - 191 01/06/2018 [facility] CARDIAC ENZYMES Troponin-I 0.08 ng/mL 0.00 - 0.40 01/06/2018 [facility] CARDIAC ENZYMES CK MB 5.2 ng/mL 0.5 - 3.6 01/06/2018 [facility] CHEM PANEL B/C Ratio 15 6 - 25 01/06/2018 [facility] CHEM PANEL Globulin 4.6 g/dL 2.7 - 4.2 01/06/2018 [facility] CHEM PANEL A/G Ratio 0.8 0.7 - 1.6 01/06/2018 [facility] CHEM PANEL Bili Total 0.2 mg/dL 0.2 - 1.3 01/06/2018 [facility] CHEM PANEL AST 21 unit/L 0 - 37 01/06/2018 [facility] CHEM PANEL Alk Phos 81 unit/L 39 - 136 01/06/2018 [facility] CHEM PANEL ALT 30 unit/L 0 - 65 01/06/2018 [facility] CHEM PANEL Total Protein 8.4 g/dL 6.4 - 8.4 01/06/2018 [facility] CHEM PANEL Albumin Lvl 3.8 g/dL 3.5 - 5.0 01/06/2018 [facility] HEMATOLOGY Eosinophils 1.4 % 0.0 - 4.0 01/06/2018 [facility] HEMATOLOGY Eosinophils # 0.1 K/CMM 0.0 - 0.5 01/06/2018 [facility] HEMATOLOGY Basophils # 0.1 K/CMM 0.0 - 0.2 01/06/2018 [facility] HEMATOLOGY Plt Morph Normal (01/06/18 3:30 AM) 01/06/2018 [facility] HEMATOLOGY RBC Morph Normal (01/06/18 3:30 AM) 01/06/2018 [facility] HEMATOLOGY PTT 28.2 s 22.9 - 35.8 01/06/2018 [facility] HEMATOLOGY PT 12.4 s 12.0 - 14.7 01/06/2018 [facility] HEMATOLOGY INR 0.92 0.85 - 1.17 01/06/2018 [facility] Chest Pulmonary Embolism CTA Chest Pulmonary Embolism [...] 1. Unremarkable CTA of the chest. SL: [id number] 01/06/2018 - - Read by: Antonio Palm MD Dictated Date/time: 01/06/18 04:48 Electronically Signed by: Antonio Palm MD 01/06/18 04:52 FINAL REPORT [facility] Chest 1view DX Chest 1view DX Clinical Indication: - Shortness of breath Comparison: 11/30/2017 FINDINGS: AP chest radiograph was obtained. MEDIASTINUM: The cardiac silhouette is normal in size. The aorta is unremarkable. LUNGS: Lung volumes are maintained. There are no focal infiltrates or effusions. There are no pneumothoraces noted. BONES: The visualized osseous structures are unremarkable. IMPRESSION: No acute infiltrates or effusions. SL: [id number] 01/06/2018 - - Read by: Antonio Palm MD Dictated Date/time: 01/06/18 03:49 Electronically Signed by: Antonio Palm MD 01/06/18 03:50 FINAL REPORT [facility] CHEM PANEL eGFR 86 mL/min/1.73m2 12/04/2017 Result [...] should be multiplied by the estimated BMI. [facility] CHEM PANEL AGAP 8.7 meq/L 10.0 - 20.0 12/04/2017 [facility] CHEM PANEL CO2 34 meq/L 24 - 32 12/04/2017 [facility] CHEM PANEL Calcium Lvl 8.8 mg/dL 8.5 - 10.5 12/04/2017 [facility] CHEM PANEL Chloride Lvl 99 meq/L 95 - 109 12/04/2017 [facility] CHEM PANEL Potassium Lvl 3.7 meq/L 3.5 - 5.1 12/04/2017 [facility] CHEM PANEL Creatinine Lvl 1.14 mg/dL 0.50 - 1.40 12/04/2017 [facility] CHEM PANEL BUN 25 mg/dL 7 - 22 12/04/2017 [facility] CHEM PANEL Glucose Lvl 153 mg/dL 70 - 99 12/04/2017 [facility] CHEM PANEL Sodium Lvl 138 meq/L 135 - 145 12/04/2017 [facility] CHEM PANEL Magnesium Lvl 2.1 mg/dL 1.8 - 2.4 12/04/2017 [facility] CHEM PANEL Magnesium Lvl 2.1 mg/dL 1.8 - 2.4 12/03/2017 [facility] CHEM PANEL Calcium Lvl 8.8 mg/dL 8.5 - 10.5 12/03/2017 [facility] CHEM PANEL AGAP 11.0 meq/L 10.0 - 20.0 12/03/2017 [facility] CHEM PANEL CO2 33 meq/L 24 - 32 12/03/2017 [facility] CHEM PANEL Potassium Lvl 4.0 meq/L 3.5 - 5.1 12/03/2017 [facility] CHEM PANEL Chloride Lvl 99 meq/L 95 - 109 12/03/2017 [facility] CHEM PANEL Sodium Lvl 139 meq/L 135 - 145 12/03/2017 [facility] CHEM PANEL Glucose Lvl 153 mg/dL 70 - 99 12/03/2017 [facility] CHEM PANEL BUN 28 mg/dL 7 - 22 12/03/2017 [facility] CHEM PANEL Creatinine Lvl 1.30 mg/dL 0.50 - 1.40 12/03/2017 [facility] CHEM PANEL eGFR 73 mL/min/1.73m2 12/03/2017 Result [...] should be multiplied by the estimated BMI. [facility] CARDIAC ENZYMES BNP 28 pg/mL <=100 pg/mL 12/02/2017 [facility] CHEM PANEL Magnesium Lvl 2.2 mg/dL 1.8 - 2.4 12/02/2017 [facility] CHEM PANEL eGFR 81 mL/min/1.73m2 12/02/2017 Result [...] should [facility] the [facility] Sodium Lvl 139 meq/L 135 - 145 12/02/2017 [facility] CHEM PANEL Chloride Lvl 98 meq/L 95 - 109 12/02/2017 [facility] CHEM PANEL Potassium Lvl 3.9 meq/L 3.5 - 5.1 12/02/2017 [facility] CHEM PANEL Creatinine Lvl 1.19 mg/dL 0.50 - 1.40 12/02/2017 [facility] CHEM PANEL BUN 23 mg/dL 7 - 22 12/02/2017 [facility] CHEM PANEL AGAP 8.9 meq/L 10.0 - 20.0 12/02/2017 [facility] CHEM PANEL Calcium Lvl 9.0 mg/dL 8.5 - 10.5 12/02/2017 [facility] CHEM PANEL CO2 36 meq/L 24 - 32 12/02/2017 [facility] CHEM PANEL Glucose Lvl 167 mg/dL 70 - 99 12/02/2017 [facility] Abdomen AP DX Abdomen AP DX Patient Name: FABIO CUEVA : 1965; Age: 52 years y/o Male MR: [id number] * ABDOMEN, 1 view HISTORY: Acute generalized [...] MD 12/01/17 17:35 FINAL REPORT [facility] CARDIAC ENZYMES CK MB Index 2.1 0.0 - 2.5 12/01/2017 [facility] CARDIAC ENZYMES CK MB 3.8 ng/mL 0.5 - 3.6 12/01/2017 [facility] CARDIAC ENZYMES Troponin-I 0.03 ng/mL 0.00 - 0.40 12/01/2017 [facility] CARDIAC ENZYMES Total CK 185 unit/L 12 - 191 12/01/2017 [facility] CHEM PANEL B/C Ratio 16 6 - 25 12/01/2017 [facility] CHEM PANEL Globulin 4.8 g/dL 2.7 - 4.2 12/01/2017 [facility] CHEM PANEL A/G Ratio 0.8 0.7 - 1.6 12/01/2017 [facility] CHEM PANEL ALT 30 unit/L 0 - 65 12/01/2017 [facility] CHEM PANEL Total Protein 8.6 g/dL 6.4 - 8.4 12/01/2017 [facility] CHEM PANEL Albumin Lvl 3.8 g/dL 3.5 - 5.0 12/01/2017 [facility] CHEM PANEL Bili Total 0.4 mg/dL 0.2 - 1.3 12/01/2017 [facility] CHEM PANEL Alk Phos 79 unit/L 39 - 136 12/01/2017 [facility] CHEM PANEL AST 16 unit/L 0 - 37 12/01/2017 [facility] HEMATOLOGY Segs 58.6 % 45.0 - 75.0 12/01/2017 [facility] Lymphocytes 36.7 % 20.0 - 40.0 12/01/2017 [facility] HEMATOLOGY Segs-Bands # 4.1 K/CMM 1.5 - 8.1 12/01/2017 [facility] HEMATOLOGY Lymphocytes # 2.6 K/CMM 1.0 - 5.5 12/01/2017 [facility] HEMATOLOGY Eosinophils 0.3 % 0.0 - 4.0 12/01/2017 [facility] HEMATOLOGY Monocytes 4.1 % 2.0 - 12.0 12/01/2017 [facility] HEMATOLOGY Basophils 0.3 % 0.0 - 1.0 12/01/2017 [facility] HEMATOLOGY Monocytes # 0.3 K/CMM 0.0 - 0.8 12/01/2017 [facility] HEMATOLOGY PTT 30.7 s 22.9 - 35.8 12/01/2017 [facility] HEMATOLOGY PT 13.3 s 12.0 - 14.7 12/01/2017 [facility] HEMATOLOGY INR 1.01 0.85 - 1.17 12/01/2017 [facility] MCH 30.2 pg 27.0 - 31.0 12/01/2017 [facility] HEMATOLOGY MCV 91.7 fL 80.0 - 94.0 12/01/2017 [facility] HEMATOLOGY Hct 44.8 % 42.0 - 54.0 12/01/2017 [facility] HEMATOLOGY MCHC 33.0 g/dL 32.0 - 36.0 12/01/2017 [facility] HEMATOLOGY RDW 14.5 % 11.5 - 14.5 12/01/2017 [facility] HEMATOLOGY Platelet 273 K/CMM 133 - 450 12/01/2017 [facility] HEMATOLOGY MPV 7.8 fL 7.4 - 10.4 12/01/2017 [facility] HEMATOLOGY Hgb 14.8 g/dL 14.0 - 18.0 12/01/2017 [facility] HEMATOLOGY WBC 7.0 K/CMM 3.7 - 10.4 12/01/2017 [facility] HEMATOLOGY RBC 4.89 M/CMM 4.70 - 6.10 12/01/2017 [facility] SPECIAL CHEMISTRY Hgb A1C 7.3 % <=5.6 % 12/01/2017 [facility] Knee 1-2 Views unilateral DX Knee 1-2 [...] seen. IMPRESSION: Severe osteoarthritis. No fracture. SL: [id number] 12/01/2017 - - Read by: Angel Carson MD Dictated Date/time: 12/01/17 09:31 Electronically Signed by: Angel Carson MD 12/01/17 09:32 FINAL REPORT [facility] Pelvis AP DX Pelvis AP DX Study: Pelvis AP DX portable 11/23/2017 0543 hours Clinical Indication: - pain in lower back and pelvis after fall; Comparison: None FINDINGS: Image quality is severely compromised by the large patient size. No gross fracture or dislocation is identified. Sacroiliac and hip joints are maintained. SL: [id number] 12/01/2017 - - Read by: Angel Carson MD Dictated Date/time: 12/01/17 09:32 Electronically Signed by: Angel Carson MD 12/01/17 09:33 FINAL REPORT [facility] CARDIAC ENZYMES CK MB 3.5 ng/mL 0.5 - 3.6 12/01/2017 [facility] CARDIAC ENZYMES CK MB Index 1.9 0.0 - 2.5 12/01/2017 [facility] CARDIAC ENZYMES Troponin-I 0.04 ng/mL 0.00 - 0.40 12/01/2017 [facility] CARDIAC ENZYMES Total CK 189 unit/L 12 - 191 12/01/2017 [facility] CARDIAC ENZYMES CK MB Index 1.8 0.0 - 2.5 12/01/2017 [facility] CARDIAC ENZYMES Troponin-I 0.05 ng/mL 0.00 - 0.40 12/01/2017 [facility] CARDIAC ENZYMES proBNP 318 pg/mL 0 - 125 12/01/2017 [facility] CARDIAC ENZYMES Total CK 217 unit/L 12 - 191 12/01/2017 [facility] CARDIAC ENZYMES CK MB 4.0 ng/mL 0.5 - 3.6 12/01/2017 [facility] CHEM PANEL Bili Total 0.3 mg/dL 0.2 - 1.3 12/01/2017 [facility] CHEM PANEL A/G Ratio 0.8 0.7 - 1.6 12/01/2017 [facility] CHEM PANEL Globulin 4.6 g/dL 2.7 - 4.2 12/01/2017 [facility] CHEM PANEL Alk Phos 83 unit/L 39 - 136 12/01/2017 [facility] CHEM PANEL B/C Ratio 14 6 - 25 12/01/2017 [facility] CHEM PANEL Total Protein 8.4 g/dL 6.4 - 8.4 12/01/2017 [facility] CHEM PANEL Albumin Lvl 3.8 g/dL 3.5 - 5.0 12/01/2017 [facility] CHEM PANEL ALT 30 unit/L 0 - 65 12/01/2017 [facility] CHEM PANEL AST 20 unit/L 0 - 37 12/01/2017 [facility] HEMATOLOGY Eosinophils 1.3 % 0.0 - 4.0 12/01/2017 [facility] HEMATOLOGY Monocytes 7.0 % 2.0 - 12.0 12/01/2017 [facility] HEMATOLOGY Lymphocytes 38.5 % 20.0 - 40.0 12/01/2017 [facility] HEMATOLOGY Segs 52.7 % 45.0 - 75.0 12/01/2017 [facility] HEMATOLOGY Eosinophils # 0.1 K/CMM 0.0 - 0.5 12/01/2017 [facility] HEMATOLOGY Monocytes # 0.5 K/CMM 0.0 - 0.8 12/01/2017 [facility] HEMATOLOGY Lymphocytes # 2.9 K/CMM 1.0 - 5.5 12/01/2017 [facility] Segs-Bands # 4.0 K/CMM 1.5 - 8.1 12/01/2017 [facility] Basophils 0.5 % 0.0 - 1.0 12/01/2017 [facility] PTT 28.9 s 22.9 - 35.8 12/01/2017 [facility] PT 13.1 s 12.0 - 14.7 12/01/2017 [facility] INR 0.99 0.85 - 1.17 12/01/2017 [facility] Hct 44.6 % 42.0 - 54.0 12/01/2017 [facility] Hgb 14.8 g/dL 14.0 - 18.0 12/01/2017 [facility] RBC 4.93 M/CMM 4.70 - 6.10 12/01/2017 [facility] MPV 7.9 fL 7.4 - 10.4 12/01/2017 [facility] Platelet 266 K/CMM 133 - 450 12/01/2017 [facility] RDW 14.4 % 11.5 - 14.5 12/01/2017 [facility] MCHC 33.2 g/dL 32.0 - 36.0 12/01/2017 [facility] MCH 30.1 pg 27.0 - 31.0 12/01/2017 [facility] WBC 7.6 K/CMM 3.7 - 10.4 12/01/2017 [facility] MCV 90.6 fL 80.0 - 94.0 12/01/2017 [facility] Chest 1view DX Chest 1view DX Clinical [...] IMPRESSION: Left midlung scarring or atelectasis. SL: [id number] 11/30/2017 - - Read by: Fidencio Eli MD Dictated Date/time: 11/30/17 20:22 Electronically Signed by: Fidencio Eli MD 11/30/17 20:25 FINAL REPORT [facility] CHEM PANEL Magnesium Lvl 2.2 mg/dL 1.8 - 2.4 11/08/2017 [facility] CHEM PANEL Phosphorus 4.1 mg/dL 2.5 - 4.5 11/08/2017 [facility] ELECTROLYTES AGAP 9.2 meq/L 10.0 - 20.0 11/08/2017 [facility] ELECTROLYTES B/C Ratio 19 6 - 25 11/08/2017 [facility] ELECTROLYTES Globulin 4.3 g/dL 2.7 - 4.2 11/08/2017 [facility] ELECTROLYTES A/G Ratio 0.8 0.7 - 1.6 11/08/2017 [facility] ELECTROLYTES eGFR 85 mL/min/1.73m2 11/08/2017 Result Comment: [...] should be multiplied by the estimated BMI. [facility] ELECTROLYTES Total Protein 7.8 g/dL 6.4 - 8.4 11/08/2017 [facility] ELECTROLYTES ALT 28 unit/L 0 - 65 11/08/2017 [facility] ELECTROLYTES Albumin Lvl 3.5 g/dL 3.5 - 5.0 11/08/2017 [facility] ELECTROLYTES AST 14 unit/L 0 - 37 11/08/2017 [facility] ELECTROLYTES Alk Phos 72 unit/L 39 - 136 11/08/2017 [facility] ELECTROLYTES Bili Total 0.5 mg/dL 0.2 - 1.3 11/08/2017 [facility] ELECTROLYTES Calcium Lvl 9.0 mg/dL 8.5 - 10.5 11/08/2017 [facility] ELECTROLYTES Glucose Lvl 117 mg/dL 70 - 99 11/08/2017 [facility] ELECTROLYTES BUN 22 mg/dL 7 - 22 11/08/2017 [facility] ELECTROLYTES Creatinine Lvl 1.15 mg/dL 0.50 - 1.40 11/08/2017 [facility] ELECTROLYTES CO2 31 meq/L 24 - 32 11/08/2017 [facility] ELECTROLYTES Potassium Lvl 4.2 meq/L 3.5 - 5.1 11/08/2017 [facility] ELECTROLYTES Sodium Lvl 138 meq/L 135 - 145 11/08/2017 [facility] ELECTROLYTES Chloride Lvl 102 meq/L 95 - 109 11/08/2017 [facility] HEMATOLOGY MCHC 34.3 g/dL 32.0 - 36.0 11/08/2017 [facility] HEMATOLOGY MCV 89.9 fL 80.0 - 94.0 11/08/2017 [facility] MCH 30.8 pg 27.0 - 31.0 11/08/2017 [facility] HEMATOLOGY RDW 14.7 % 11.5 - 14.5 11/08/2017 [facility] HEMATOLOGY Platelet 296 K/CMM 133 - 450 11/08/2017 [facility] HEMATOLOGY MPV 7.7 fL 7.4 - 10.4 11/08/2017 [facility] HEMATOLOGY WBC 7.2 K/CMM 3.7 - 10.4 11/08/2017 [facility] HEMATOLOGY Hct 43.3 % 42.0 - 54.0 11/08/2017 [facility] RBC 4.81 M/CMM 4.70 - 6.10 11/08/2017 [facility] Hgb 14.8 g/dL 14.0 - 18.0 11/08/2017 [facility] HEMATOLOGY Eosinophils 1.5 % 0.0 - 4.0 11/08/2017 [facility] HEMATOLOGY Eosinophils # 0.1 K/CMM 0.0 - 0.5 11/08/2017 [facility] HEMATOLOGY Monocytes # 0.6 K/CMM 0.0 - 0.8 11/08/2017 [facility] HEMATOLOGY Lymphocytes # 3.1 K/CMM 1.0 - 5.5 11/08/2017 [facility] HEMATOLOGY Segs-Bands # 3.3 K/CMM 1.5 - 8.1 11/08/2017 [facility] Basophils 0.5 % 0.0 - 1.0 11/08/2017 [facility] HEMATOLOGY Segs 45.7 % 45.0 - 75.0 11/08/2017 [facility] HEMATOLOGY Monocytes 8.9 % 2.0 - 12.0 11/08/2017 [facility] HEMATOLOGY Lymphocytes 43.4 % 20.0 - 40.0 11/08/[address] [facility] Magnesium Lvl 2.2 mg/dL 1.8 - 2.4 11/07/2017 [facility] CHEM PANEL Phosphorus 3.6 mg/dL 2.5 - 4.5 11/07/2017 [facility] CHEM PANEL eGFR 93 mL/min/1.73m2 11/07/2017 Result [...] should be multiplied by the estimated BMI. [facility] CHEM PANEL Calcium Lvl 8.6 mg/dL 8.5 - 10.5 11/07/2017 [facility] CHEM PANEL AGAP 9.5 meq/L 10.0 - 20.0 11/07/[address] [facility] Potassium Lvl 4.5 meq/L 3.5 - 5.1 11/07/[address] [facility] CO2 32 meq/L 24 - 32 11/07/[address] [facility] Chloride Lvl 100 meq/L 95 - 109 11/07/[address] [facility] Sodium Lvl 137 meq/L 135 - 145 11/07/2017 [facility] CHEM PANEL BUN 25 mg/dL 7 - 22 11/07/[address] [facility] Glucose Lvl 121 mg/dL 70 - 99 11/07/[address] [facility] Creatinine Lvl 1.06 mg/dL 0.50 - 1.40 11/07/[address] [facility] Alk Phos 70 unit/L 39 - 136 11/06/2017 [facility] CHEM PANEL Bili Total 0.5 mg/dL 0.2 - 1.3 11/06/2017 [facility] CHEM PANEL eGFR 65 mL/min/1.73m2 11/06/2017 Result [...] should be multiplied by the estimated BMI. [facility] CHEM PANEL Potassium Lvl 4.2 meq/L 3.5 - 5.1 11/06/2017 [facility] CHEM PANEL Sodium Lvl 137 meq/L 135 - 145 11/06/2017 [facility] CHEM PANEL Creatinine Lvl 1.44 mg/dL 0.50 - 1.40 11/06/2017 [facility] CHEM PANEL Chloride Lvl 102 meq/L 95 - 109 11/06/2017 [facility] CHEM PANEL CO2 29 meq/L 24 - 32 11/06/2017 [facility] CHEM PANEL Glucose Lvl 158 mg/dL 70 - 99 11/06/2017 [facility] CHEM PANEL BUN 30 mg/dL 7 - 22 11/06/2017 [facility] CHEM PANEL Albumin Lvl 3.8 g/dL 3.5 - 5.0 11/06/2017 [facility] CHEM PANEL Total Protein 8.1 g/dL 6.4 - 8.4 11/06/2017 [facility] CHEM PANEL Calcium Lvl 9.1 mg/dL 8.5 - 10.5 11/06/2017 [facility] CHEM PANEL ALT 30 unit/L 0 - 65 11/06/2017 [facility] CHEM PANEL AST 21 unit/L 0 - 37 11/06/2017 [facility] CHEM PANEL A/G Ratio 0.9 0.7 - 1.6 11/06/2017 [facility] CHEM PANEL B/C Ratio 21 6 - 25 11/06/2017 [facility] CHEM PANEL AGAP 10.2 meq/L 10.0 - 20.0 11/06/2017 [facility] CHEM PANEL Globulin 4.3 g/dL 2.7 - 4.2 11/06/2017 [facility] CHEM PANEL Phosphorus 4.6 mg/dL 2.5 - 4.5 11/06/2017 [facility] CHEM PANEL Magnesium Lvl 2.3 mg/dL 1.8 - 2.4 11/06/2017 [facility] HEMATOLOGY Lymphocytes # 3.2 K/CMM 1.0 - 5.5 11/06/2017 [facility] Segs-Bands # 7.0 K/CMM 1.5 - 8.1 11/06/2017 [facility] Monocytes # 0.8 K/CMM 0.0 - 0.8 11/06/2017 [facility] Basophils # 0.1 K/CMM 0.0 - 0.2 11/06/2017 [facility] Monocytes 7.5 % 2.0 - 12.0 11/06/2017 [facility] Basophils 0.6 % 0.0 - 1.0 11/06/2017 [facility] Eosinophils 0.3 % 0.0 - 4.0 11/06/2017 [facility] Segs 63.2 % 45.0 - 75.0 11/06/2017 [facility] Lymphocytes 28.4 % 20.0 - 40.0 11/06/2017 [facility] Platelet 317 K/CMM 133 - 450 11/06/2017 [facility] MPV 7.5 fL 7.4 - 10.4 11/06/2017 [facility] RDW 14.7 % 11.5 - 14.5 11/06/2017 [facility] MCHC 33.7 g/dL 32.0 - 36.0 11/06/2017 [facility] WBC 11.1 K/CMM 3.7 - 10.4 11/06/2017 [facility] Hct 43.6 % 42.0 - 54.0 11/06/2017 [facility] MCV 90.4 fL 80.0 - 94.0 11/06/2017 [facility] MCH 30.4 pg 27.0 - 31.0 11/06/2017 [facility] Hgb 14.7 g/dL 14.0 - 18.0 11/06/2017 [facility] HEMATOLOGY RBC 4.82 M/CMM 4.70 - 6.10 11/06/2017 [facility] CARDIAC ENZYMES Troponin-I 0.04 ng/mL 0.00 - 0.40 11/05/2017 [facility] CARDIAC ENZYMES Troponin-I 0.09 ng/mL 0.00 - 0.40 11/05/2017 [facility] Ext Lower Venous Doppler Bilat US Ext [...] the right or left lower extremity. SL: [id number] 11/05/2017 - - Read by: Roger Villela MD Dictated Date/time: 11/05/17 11:57 Electronically Signed by: Roger Villela MD 11/05/17 11:57 FINAL REPORT [facility] CARDIAC ENZYMES Troponin-I 0.12 ng/mL 0.00 - 0.40 11/05/2017 [facility] DRUG SCREEN U Amph Scr Negative *NA* (11/05/17 4:52 AM) Negative 11/05/2017 [facility] DRUG SCREEN U Cannab Scr Negative *NA* (11/05/17 4:52 AM) Negative 11/05/2017 [facility] DRUG SCREEN U Cocaine Scr Negative *NA* (11/05/17 4:52 AM) Negative 11/05/2017 [facility] DRUG SCREEN U Opiate Scr Negative *NA* (11/05/17 4:52 AM) Negative 11/05/2017 [facility] DRUG SCREEN U Benzodia Scr Negative *NA* (11/05/17 4:52 AM) Negative 11/05/2017 [facility] DRUG SCREEN U Elizabeth Scr Negative *NA* (11/05/17 4:52 AM) Negative 11/05/2017 [facility] DRUG SCREEN UDS Note See Note *NA* (11/05/17 4:52 AM) 11/05/2017 [facility] DRUG SCREEN U Phencyc Scr Negative *NA* (11/05/17 4:52 AM) Negative 11/05/2017 [facility] URINE AND STOOL UA Mucus Few /LPF None Seen /LPF 11/05/2017 [facility] URINE AND STOOL UA WBC 2 /HPF 0 - 5 11/05/2017 [facility] URINE AND STOOL UA Leuk Est Negative (11/05/17 4:52 AM) Negative 11/05/2017 [facility] URINE AND STOOL UA Sq Epi Occasional /LPF Few /LPF 11/05/2017 [facility] URINE AND STOOL UA Blood Negative (11/05/17 4:52 AM) Negative 11/05/2017 [facility] URINE AND STOOL UA RBC 4 /HPF 0 - 2 11/05/2017 [facility] URINE AND STOOL UA Bili Negative *NA* (11/05/17 4:52 AM) Negative 11/05/2017 [facility] URINE AND STOOL UA Urobilinogen 4.0 mg/dL 0.1 - 1.0 11/05/2017 [facility] URINE AND STOOL UA Ketones Negative mg/dL Negative mg/dL 11/05/2017 [facility] URINE AND STOOL UA Nitrite Negative (11/05/17 4:52 AM) Negative 11/05/2017 [facility] URINE AND STOOL UA Protein 100 mg/dL Negative mg/dL 11/05/2017 [facility] URINE AND STOOL UA pH 5.0 5.0 - 8.0 11/05/2017 [facility] URINE AND STOOL UA Spec Grav 1.038 <=1.030 11/05/2017 [facility] URINE AND STOOL UA Turbidity Clear (11/05/17 4:52 AM) Clear 11/05/2017 [facility] URINE AND STOOL UA Glucose Negative mg/dL Negative mg/dL 11/05/2017 [facility] URINE AND STOOL UA Color Yellow *NA* (11/05/17 4:52 AM) Yellow 11/05/2017 [facility] CHEM PANEL Lactic Acid Lvl 1.7 mMol/L 0.5 - 2.2 11/05/2017 [facility] CARDIAC ENZYMES CK MB Index 1.1 0.0 - 2.5 11/05/2017 [facility] CARDIAC ENZYMES CK MB 7.4 ng/mL 0.5 - 3.6 11/05/2017 [facility] CARDIAC ENZYMES Total CK 666 unit/L 12 - 191 11/05/2017 [facility] CARDIAC ENZYMES proBNP 204 pg/mL 0 - 125 11/05/2017 [facility] CHEM PANEL A/G Ratio 0.8 0.7 - 1.6 11/05/2017 [facility] CHEM PANEL Alk Phos 78 unit/L 39 - 136 11/05/2017 [facility] CHEM PANEL AST 30 unit/L 0 - 37 11/05/2017 [facility] [facility] CHEM PANEL Total Protein 8.6 g/dL 6.4 - 8.4 11/05/2017 [facility] CHEM PANEL ALT 35 unit/L 0 - 65 11/05/2017 [facility] CHEM PANEL Albumin Lvl 3.7 g/dL 3.5 - 5.0 11/05/2017 [facility] CHEM PANEL Bili Total 0.4 mg/dL 0.2 - 1.3 11/05/2017 [facility] CHEM PANEL B/C Ratio 17 6 - 25 11/05/2017 [facility] CHEM PANEL Globulin 4.9 g/dL 2.7 - 4.2 11/05/2017 [facility] CHEM PANEL Lipase Lvl 197 unit/L 73 - 393 11/05/2017 [facility] HEMATOLOGY Lymphocytes 45.2 % 20.0 - 40.0 11/05/2017 [facility] HEMATOLOGY Segs 45.2 % 45.0 - 75.0 11/05/2017 [facility] HEMATOLOGY Eosinophils 1.9 % 0.0 - 4.0 11/05/2017 [facility] HEMATOLOGY Monocytes 7.1 % 2.0 - 12.0 11/05/2017 [facility] HEMATOLOGY Segs-Bands # 3.4 K/CMM 1.5 - 8.1 11/05/2017 [facility] HEMATOLOGY Basophils 0.6 % 0.0 - 1.0 11/05/2017 [facility] HEMATOLOGY Lymphocytes # 3.4 K/CMM 1.0 - 5.5 11/05/2017 [facility] HEMATOLOGY Monocytes # 0.5 K/CMM 0.0 - 0.8 11/05/2017 [facility] HEMATOLOGY Eosinophils # 0.1 K/CMM 0.0 - 0.5 11/05/2017 [facility] MPV 7.6 fL 7.4 - 10.4 11/05/2017 [facility] RBC 5.19 M/CMM 4.70 - 6.10 11/05/2017 [facility] WBC 7.5 K/CMM 3.7 - 10.4 11/05/2017 [facility] Hgb 15.9 g/dL 14.0 - 18.0 11/05/2017 [facility] MCV 89.6 fL 80.0 - 94.0 11/05/2017 [facility] Hct 46.6 % 42.0 - 54.0 11/05/2017 [facility] RDW 14.7 % 11.5 - 14.5 11/05/2017 [facility] MCHC 34.2 g/dL 32.0 - 36.0 11/05/2017 [facility] MCH 30.6 pg 27.0 - 31.0 11/05/2017 [facility] Platelet 298 K/CMM 133 - 450 11/05/2017 [facility] PTT 28.1 s 22.9 - 35.8 11/05/2017 [facility] INR 0.97 0.85 - 1.17 11/05/2017 [facility] PT 12.9 s 12.0 - 14.7 11/05/2017 [facility] Chest CTA Chest CTA CT THORAX: PE [...] material was used for the exam. Dose: TQW=062 mGy-cm FINDINGS: PULMONARY EMBOLISM: Extensive respiratory motion [...] MD 11/05/17 05:27 FINAL REPORT [facility] Chest 1view DX Chest 1view DX Clinical [...] MD 11/05/17 04:12 FINAL REPORT [facility] Vital Signs Vital Sign Value Date Comments Source Respitory Rate 29 09/09/2018 [facility] Systolic (mm Hg) 133 09/09/2018 [facility] Diastolic (mm Hg) 96 09/09/2018 [facility] Respitory Rate 29 09/09/2018 [facility] Systolic (mm Hg) 150 09/09/2018 [facility] Diastolic (mm Hg) 101 09/09/2018 [facility] Respitory Rate 45 09/09/2018 [facility] Systolic (mm Hg) 137 09/09/2018 [facility] Diastolic (mm Hg) 95 09/09/2018 [facility] Temperature Oral (F) 98.7 F 09/09/2018 [facility] Temperature Oral (F) 98.7 F 09/09/2018 [facility] Height 180.34 cm 09/09/2018 [facility] Weight 133.3 09/09/2018 [facility] BMI Calculated 40.99 09/09/2018 [facility] Temperature Oral (F) 98.0 F 09/09/2018 [facility] Heart Rate 88 09/08/2018 [facility] Heart Rate 82 09/08/2018 [facility] Heart Rate 78 09/08/2018 [facility] BMI Calculated 38.57 09/08/2018 [facility] Height 180.34 cm 09/08/2018 [facility] Weight 125.455 09/08/2018 [facility] Systolic (mm Hg) 106 02/03/2018 [facility] Diastolic (mm Hg) 71 02/03/2018 [facility] Temperature Oral (F) 97.7 F 02/03/2018 [facility] Respitory Rate 18 02/03/2018 [facility] Heart Rate 85 02/03/2018 [facility] Heart Rate 69 02/03/2018 [facility] Temperature Oral (F) 98.5 F 02/03/2018 [facility] Respitory Rate 18 02/03/2018 [facility] Systolic (mm Hg) 86 02/03/2018 [facility] Diastolic (mm Hg) 52 02/03/2018 [facility] Respitory Rate 82 02/03/2018 [facility] Temperature Oral (F) 98.0 F 02/03/2018 [facility] Heart Rate 67 02/03/2018 [facility] Systolic (mm Hg) 125 02/03/2018 [facility] Diastolic (mm Hg) 75 02/03/2018 [facility] Weight 133.182 02/03/2018 [facility] Weight 131 02/01/2018 [facility] BMI Calculated 40.28 02/01/2018 [facility] Height 180.34 cm 02/01/2018 [facility] BMI Calculated 40.28 02/01/2018 [facility] Height 180.34 cm 02/01/2018 [facility] Weight 131 02/01/2018 [facility] BMI Calculated 30.19 01/31/2018 [facility] Height 180.34 cm 01/31/2018 [facility] Respitory Rate 18 01/09/2018 [facility] Heart Rate 78 01/09/2018 [facility] Systolic (mm Hg) 133 01/09/2018 [facility] Diastolic (mm Hg) 83 01/09/2018 [facility] Temperature Oral (F) 98.4 F 01/09/2018 [facility] Temperature Oral (F) 98.1 F 01/09/2018 [facility] Heart Rate 75 01/09/2018 [facility] Respitory Rate 18 01/09/2018 [facility] Systolic (mm Hg) 139 01/09/2018 [facility] Diastolic (mm Hg) 96 01/09/2018 [facility] Respitory Rate 16 01/09/2018 [facility] Temperature Oral (F) 97.8 F 01/09/2018 [facility] Systolic (mm Hg) 139 01/09/2018 [facility] Diastolic (mm Hg) 87 01/09/2018 [facility] Heart Rate 76 01/09/2018 [facility] BMI Calculated 43.76 01/06/2018 [facility] Weight 134.4 01/06/2018 [facility] Height 175.26 cm 01/06/2018 [facility] Height 180.34 cm 01/06/2018 [facility] BMI Calculated 41.2 01/06/2018 [facility] Weight 134 01/06/2018 [facility] Temperature Oral (F) 98.2 F 12/04/2017 [facility] Heart Rate 86 12/04/2017 [facility] Respitory Rate 18 12/04/2017 [facility] Systolic (mm Hg) 134 12/04/2017 [facility] Diastolic (mm Hg) 84 12/04/2017 [facility] Respitory Rate 18 12/04/2017 [facility] Systolic (mm Hg) 119 12/04/2017 [facility] Diastolic (mm Hg) 74 12/04/2017 [facility] Temperature Oral (F) 98.1 F 12/04/2017 [facility] Heart Rate 79 12/04/2017 [facility] Respitory Rate 18 12/04/2017 [facility] Temperature Oral (F) 98.4 F 12/04/2017 [facility] Systolic (mm Hg) 121 12/04/2017 [facility] Diastolic (mm Hg) 85 12/04/2017 [facility] Heart Rate 79 12/04/2017 [facility] Weight 142.591 12/03/2017 [facility] Height 180.34 cm 12/01/2017 [facility] Weight 133.8 12/01/2017 [facility] BMI Calculated 41.14 12/01/2017 [facility] Height 180.34 cm 12/01/2017 [facility] BMI Calculated 39.13 12/01/2017 [facility] Weight 127.273 12/01/2017 [facility] Systolic (mm Hg) 144 11/08/2017 [facility] Diastolic (mm Hg) 97 11/08/2017 [facility] Respitory Rate 19 11/08/2017 [facility] Heart Rate 82 11/08/2017 [facility] Temperature Oral (F) 98.5 F 11/08/2017 [facility] Respitory Rate 17 11/08/2017 [facility] Systolic (mm Hg) 145 11/08/2017 [facility] Diastolic (mm Hg) 94 11/08/2017 [facility] Heart Rate 82 11/08/2017 [facility] Respitory Rate 16 11/08/2017 [facility] Temperature Oral (F) 97.9 F 11/08/2017 [facility] Systolic (mm Hg) 125 11/08/2017 [facility] Diastolic (mm Hg) 84 11/08/2017 [facility] Temperature Oral (F) 98.1 F 11/08/2017 [facility] Heart Rate 76 11/08/2017 [facility] Weight 119.545 11/05/2017 [facility] BMI Calculated 36.76 11/05/2017 [facility] Height 180.34 cm 11/05/2017 [facility] Encounters Location Location Details Encounter Type Encounter Number Reason For Visit Attending Provider ADM Date DC Date Status Source [facility] Inpatient [id number] Ramos Dhamotharan 11/05/2017 11/08/2017 [facility] Inpatient [id number] Sunny Ajibade 12/01/2017 12/04/2017 [facility] Inpatient [id number] Sunny Ajibade 01/06/2018 01/09/2018 [facility] Inpatient [id number] Jonathan Warren 01/31/2018 02/04/2018 [facility] Inpatient [id number] Ramos Dhamotharan 09/08/2018 09/09/2018 [facility] Procedures Procedure Code Date Perfomer Comments Source Ankle joint operations [id number] [facility] Knee joint operation [id number] Jair
--- NOTE | 2018-10-13 04:31 | Diagnostic Imaging Report ---
EXAMINATION: CHEST 2 VIEWS INDICATION: SOB X1 DAY COMPARISON: Chest x-ray 09/21/2018 FINDINGS: PA and lateral views TUBES and LINES: None. LUNGS: Stable scarring in the left midlung. There is no evidence of pneumonia or pulmonary edema. PLEURA: No pleural effusion or pneumothorax. HEART AND MEDIASTINUM: The cardiomediastinal silhouette is unremarkable. BONES AND SOFT TISSUES: There are degenerative changes in the thoracic spine. Soft tissues are unremarkable. UPPER ABDOMEN: No free air under the diaphragm. IMPRESSION: No acute thoracic abnormality. Signed by: DR. Deepak Tamez MD on 10/13/2018 4:27 AM
[2018-10-13 04:43] LABS: BASOPHILS % 0.4 % (0.0-1.0); EOSINOPHILS # (AUTO) 0.1 (0.0-0.4); EOSINOPHILS % 1.3 % (0.0-6.0); HEMATOCRIT 47.2 % (38.2-49.6); LYMPHOCYTES # (AUTO) 3.1 (1.0-3.2); LYMPHOCYTES % 44.4 % (18.0-39.1); MEAN CORPUSCULAR HEMOGLOBIN 29.3 pg (28-32); MEAN CORPUSCULAR HGB CONC 31.8 g/dL (31-35); MEAN CORPUSCULAR VOLUME 92.2 fL (81-99); MONOCYTES # (AUTO) 0.6 (0.2-0.8); MONOCYTES % 9.1 % (4.4-11.3); NEUTROPHILS # (AUTO) 3.1 (2.1-6.9); NEUTROPHILS % 44.7 % (38.7-80.0); PLATELET COUNT 281 x10e3/uL (140-360); RED BLOOD COUNT 5.12 x10e6/uL (4.3-5.7); RED CELL DISTRIBUTION WIDTH 13.7 % (11.7-14.4)
[2018-10-13] MEDS ORDERED: LORAZEPAM1 MG PO (04:49)
[2018-10-13] MEDS ORDERED: MELOXICAM15 MG PO (04:49)
[2018-10-13] MEDS ORDERED: HYDROCODON-ACE1 EAC9 PO (04:49)
[2018-10-13] MEDS ORDERED: ZOLPIDEM TARTRA10 MG PO (04:49)
[2018-10-13 05:02] LABS: ALANINE AMINOTRANSFERASE 17 IU/L (0-55); ALBUMIN 3.9 g/dL (3.5-5.0); ALKALINE PHOSPHATASE 91 IU/L (40-150); ANION GAP 15.2 mmol/L (8-16); BLOOD UREA NITROGEN 24 mg/dL (7-26); BUN/CREATININE RATIO 20 (6-25); CALCIUM 10.1 mg/dL (8.4-10.2); CARBON DIOXIDE 30 mmol/L (22-29); CHLORIDE 93 mmol/L (98-107); CREATINE KINASE 114 IU/L (30-200); CREATININE, SERUM 1.23 mg/dL (0.72-1.25); EST GLOMERULAR FILTRATION RATE > 60 ML/MIN (60-); GLUCOSE 355 mg/dL (74-118); LIPASE 43 U/L (8-78); MAGNESIUM 1.9 MG/DL (1.3-2.1); POTASSIUM 4.2 mmol/L (3.5-5.1); SODIUM 134 mmol/L (136-145)
[2018-10-13 05:21] LABS: ABG HCO3 33 mmol/L (23-28); ABG PCO2 64 mmHg (41-51); ABG PH 7.23 (7.31-7.41); ABG PO2 103 mmHg (80-105)
[2018-10-13] MEDS ORDERED: PROAIR HFA INH8.5 GM INH (06:11)
--- NOTE | 2018-10-13 06:56 | NUR ---
RECEIVED REPORT FROM JAIDA CHROME [employer]IENT EXECUTIVE NURSE.
--- NOTE | 2018-10-13 06:56 | NUR ---
REPORT TO JEROME HERNANDEZ
[2018-10-13] MEDS ORDERED: ASPIRIN 81 MG CHEW TAB PO ONE (07:15)
[2018-10-13] MEDS ORDERED: DEXTROSE 50% SYRINGE 50 ML IV PRN (07:45)
[2018-10-13] MEDS ORDERED: DEXTROSE 5%/0.45% SOD CHL 1,000 ML IV ONE (07:45)
[2018-10-13] MEDS: INSULIN REGULAR, HUMAN 100 UNIT/1 ML 3ML VIAL SQ SCH ×4 (08:16→21:30)
[2018-10-13 08:54] LABS: ABG HCO3 30 mmol/L (23-28); ABG PCO2 59 mmHg (41-51); ABG PH 7.31 (7.31-7.41); ABG PO2 61 mmHg (80-105)
[2018-10-13] MEDS ORDERED: INSULIN REGULAR, HUMAN 100 UNIT/1 ML 3ML VIAL SQ SCH (11:30)
[2018-10-13 11:34] LABS: CREATINE KINASE MB 1.4 ng/mL (0-5.0)
[2018-10-13 11:44] LABS: COLOR,URINE YELLOW (YELLOW)
[2018-10-13 11:45] LABS: BILIRUBIN,URINE NEGATIVE (NEGATIVE); CLARITY,URINE CLEAR (CLEAR); KETONES,URINE NEGATIVE (NEGATIVE); LEUKOCYTE ESTERASE ,URINE NEGATIVE (NEGATIVE); NITRITE,URINE NEGATIVE (NEGATIVE); PROTEIN,URINE DIPSTICK 1+ (NEGATIVE); RBC,URINE 0-5 /HPF (0-5); URINE UROBILINOGEN 1 mg/dL (0.2 - 1); WBC,URINE (MAN) 0-5 /HPF (0-5)
[2018-10-13] MEDS ORDERED: ALBUTEROL SULFATE HFA 8GM INHALATION AEROSOL INH PRN (12:30)
[2018-10-13] MEDS ORDERED: HYDROCODONE/APAP 10MG-325MG TAB PO PRN (12:30)
[2018-10-13] MEDS ORDERED: ZOLPIDEM TARTRATE 10 MG TAB PO PRN (13:15)
[2018-10-13] MEDS: BUSPIRONE HCL 5 MG TAB PO SCH ×2 (15:19→21:26)
[2018-10-13] MEDS: DOXYCYCLINE 100MG/NS 100ML 100 ML IV SCH (15:19)
[2018-10-13] MEDS: HYDROCODONE/APAP 10MG-325MG TAB PO PRN ×2 (15:30→21:51)
[2018-10-13] MEDS: HYDRALAZINE HCL 25 MG TAB PO SCH (16:03)
[2018-10-13] MEDS: NIFEDIPINE CR 30 MG TAB PO SCH (16:04)
[2018-10-13] MEDS: FUROSEMIDE 40 MG TAB PO SCH (16:04)
[2018-10-13] MEDS: CARVEDILOL 12.5 MG TAB PO SCH (16:04)
[2018-10-13] MEDS ORDERED: METFORMIN HCL 500 MG TAB PO SCH (17:00)
[2018-10-13 19:17] LABS: CREATINE KINASE MB 1.6 ng/mL (0-5.0)
[2018-10-13] MEDS ORDERED: INSULIN GLARGINE 100 UNITS/ML VIAL SQ SCH (21:00)
[2018-10-13] MEDS ORDERED: ATORVASTATIN 20 MG TAB PO SCH (21:00)
[2018-10-13] MEDS: METHYLPREDNISOLONE SOD SUCC 125 MG/2ML VIAL IV SCH (21:26)
[2018-10-14] VITALS (11 sets, daily range): BP systolic 115–145; BP diastolic 66–102
[2018-10-14] MEDS: DOXYCYCLINE 100MG/NS 100ML 100 ML IV SCH ×2 (02:45→14:30)
--- NOTE | 2018-10-14 02:46 | Consultation ---
DATE OF CONSULTATION: Pulmonary Critical Care Consultation CHIEF COMPLAINT: Dyspnea and back pain. HISTORY OF PRESENT ILLNESS: The patient is a 53-year-old man. He has a history of chronic back pain and takes Greer at home. He also has a history of obesity hypoventilation syndrome and COPD. He reports worsening dyspnea over the past several days. He also states he fell out of bed and re-injured his back, making it worse. He has now had more pain in the lower back. He does not note any cough or phlegm production. He denies any fevers. PAST MEDICAL HISTORY: 1. Chronic back pain and chronic pain. 2. Hypertension. 3. Diabetes. 4. Obstructive sleep apnea. PAST SURGICAL HISTORY: 1. Prior knee surgery. 2. Prior ankle surgery. SOCIAL HISTORY: The patient is not a smoker. He is not a drinker. ALLERGIES: THE PATIENT IS ALLERGIC TO LISINOPRIL. FAMILY HISTORY: Family history is noncontributory. REVIEW OF SYSTEMS: The patient is afebrile. The patient has no headache. He has no neck pain. He has no sore throat. He is not complaining of any chest pain. He does note lower back pain. He has no nausea or vomiting. He denies any leg swelling. PHYSICAL EXAMINATION: VITAL SIGNS: The patient is afebrile. Blood pressure is 101/64, respiratory rate is 20, saturation is 99% on 3 L. HEENT: Shows no facial swelling or erythema. Nasal mucosa is normal. The oropharynx is normal. LYMPHATIC: Shows no submandibular, cervical, or supraclavicular adenopathy. NECK: Shows no JVD or thyromegaly. There is no nuchal rigidity. CARDIAC: Reveals regular rate and rhythm with normal S1 and S2. There are no murmurs or rubs. LUNGS: Auscultation of lungs show clear breath sounds bilaterally. There is no wheezing. ABDOMEN: Soft and nontender. There is no rebound or guarding. EXTREMITIES: Examination of extremity shows no leg edema or calf tenderness. There is no cyanosis or clubbing. SKIN: Shows no rashes. NEUROLOGIC: Shows no focal abnormalities. LABORATORY DATA: The white blood cell count is 6.8 and hemoglobin is 15. The platelet count is normal. The BUN to creatinine ratio is 24 to 1.23 and the other electrolytes are within normal limits. The blood sugar is 300 to 350. IMPRESSION: 1. [id number] hypercapnic respiratory failure. 2. Chronic obstructive asthma. 3. Obesity hypoventilation syndrome. 4. Chronic back pain. 5. Diabetes. PLAN: 1. The patient will be started on IV Solu-Medrol along with doxycycline. 2. Continue bronchodilators. 3. BiPAP at night and as needed during the day. 4. The patient will need insulin temporarily while on the Solu-Medrol to prevent worsening hypoglycemia. 5. Continue diuretics. 6. The patient may be a candidate for a noninvasive ventilator at home to prevent recurrent CO2 retention. Jhoan Lott MD [facility] /[id number]
[2018-10-14] MEDS: ALBUTEROL/IPRATROPIUM 3 ML NEB NEB PRN ×5 (03:30→20:00)
[2018-10-14 05:04] LABS: BASOPHILS % 0.1 % (0.0-1.0); HEMATOCRIT 45.3 % (38.2-49.6); HEMOGLOBIN 14.2 g/dL (14.0-18.0); LYMPHOCYTES # (AUTO) 1.4 (1.0-3.2); LYMPHOCYTES % 19.9 % (18.0-39.1); MEAN CORPUSCULAR HEMOGLOBIN 29.2 pg (28-32); MEAN CORPUSCULAR HGB CONC 31.3 g/dL (31-35); MEAN CORPUSCULAR VOLUME 93.2 fL (81-99); MONOCYTES # (AUTO) 0.1 (0.2-0.8); MONOCYTES % 1.5 % (4.4-11.3); NEUTROPHILS # (AUTO) 5.3 (2.1-6.9); NEUTROPHILS % 77.9 % (38.7-80.0); PLATELET COUNT 256 x10e3/uL (140-360); RED BLOOD COUNT 4.86 x10e6/uL (4.3-5.7); RED CELL DISTRIBUTION WIDTH 13.6 % (11.7-14.4)
[2018-10-14 05:29] LABS: ALANINE AMINOTRANSFERASE 15 IU/L (0-55); ALBUMIN 3.6 g/dL (3.5-5.0); ALKALINE PHOSPHATASE 79 IU/L (40-150); ANION GAP 14.9 mmol/L (8-16); BLOOD UREA NITROGEN 23 mg/dL (7-26); BUN/CREATININE RATIO 21 (6-25); CALCIUM 9.7 mg/dL (8.4-10.2); CARBON DIOXIDE 26 mmol/L (22-29); CHLORIDE 96 mmol/L (98-107); CREATININE, SERUM 1.09 mg/dL (0.72-1.25); EST GLOMERULAR FILTRATION RATE > 60 ML/MIN (60-); GLUCOSE 398 mg/dL (74-118); POTASSIUM 4.9 mmol/L (3.5-5.1); SODIUM 132 mmol/L (136-145)
[2018-10-14] MEDS: INSULIN REGULAR, HUMAN 100 UNIT/1 ML 3ML VIAL SQ SCH ×3 (08:13→16:20)
[2018-10-14 08:30] LABS: CREATINE KINASE MB 1.7 ng/mL (0-5.0)
[2018-10-14] MEDS: METHYLPREDNISOLONE SOD SUCC 125 MG/2ML VIAL IV SCH (08:46)
[2018-10-14] MEDS: BUSPIRONE HCL 5 MG TAB PO SCH ×2 (08:46→17:21)
[2018-10-14] MEDS: HYDROCODONE/APAP 10MG-325MG TAB PO PRN (08:47)
[2018-10-14] MEDS: CARVEDILOL 12.5 MG TAB PO SCH ×2 (08:48→16:12)
[2018-10-14] MEDS: FUROSEMIDE 40 MG TAB PO SCH ×2 (08:48→16:12)
[2018-10-14] MEDS: NIFEDIPINE CR 30 MG TAB PO SCH ×2 (08:49→16:12)
[2018-10-14] MEDS: HYDRALAZINE HCL 25 MG TAB PO SCH ×2 (08:49→16:12)
[2018-10-14] MEDS ORDERED: PREDNISONE 20 MG TAB PO SCH (09:00)
[2018-10-14] MEDS ORDERED: MELOXICAM 7.5 MG TAB PO SCH (09:00)
[2018-10-14] MEDS ORDERED: LORATADINE 10 MG TAB PO SCH (09:00)
--- NOTE | 2018-10-14 11:33 | NUR ---
dr gallego making rounds, ok for pt to go home when cpap machine is set and is ok with dr macdonald
--- NOTE | 2018-10-14 14:00 | NUR ---
Pt Perla called me today here at the sleep lab at 1321. She stated that her husbands pulmonogist had told them this morning that someone from the sleep center would be calling them to come change their settings. 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 I recommended to the patient that they would probably have to get an order from the doctor and take it to the DME company that issued the equipment and have them change it. She stated that they had bought the equipment online used. I told them that I would check into it and get back with them. I spoke with Nidhi from case management and explained the situtaion. I was not sure if she could reach out to local DME companies and find one that would change it for them with an order. She said she would check into it later. I went to the patients room to let them know i had spoken with Nidhi and she would see what she could do. The patient stated that they had looked on youtube and figured out how to change the settings. I told them that i could not comment on that but that I do not recommend it, but if they chose to go that route they needed to make sure that they take it to a DME company and have them check the pressure because you want to make sure that you are getting the proper pressure and if you do not have a licenced therapist change it for you then you might not be getting what pressure you need. The patient asked me what happens if you do not get the proper pressure and i stated that you may not be getting the proper therapy you need to keep you well. He said he understood.
--- NOTE | 2018-10-14 16:21 | NUR ---
called dr gallego after administration of insulin per protocol for bs 453.
[2018-10-14] MEDS ORDERED: METFORMIN HCL 500 MG TAB PO SCH (17:00)
[2018-10-14] MEDS ORDERED: INSULIN REGULAR, HUMAN 100 UNIT/1 ML 3ML VIAL SQ ONE (17:15)
--- NOTE | 2018-10-14 18:19 | NUR ---
CM APPROACHED BY Chitra STATING PT'S NEEDS PT'S BIPAP SETTINGS READJUSTED R.Benny STATES THEY CANNOT ADJUST HOME BIPAP'S PT PURCHASED HER BIPAP ON LINE SO HAS NO [employer] EXPLAINED TO PT'S NURSE TO HAVE PT'S BRING BIPAP TO HOSPITAL SO PULMONARY DOCTOR COULD SET BIPAP ON APPROPRIATE SETTINGS
--- NOTE | 2018-10-14 19:25 | NUR ---
Spoke with Dr. Rivera, he is unavailable to round at this time. Discussed Dr. Sapp decision that patient was cleared for discharge if okay with Dr. Rivera. Discussed patient current status, Dr. Rivera is not concerned that patient's home bi-pap is an issue, states that more importantly patient be on oral steroids and that he had previously prescribed them. States that if patient has medication available at home he is okay with patient discharging. Patient states that he has steroids at home and had just refilled the prescription.
--- NOTE | 2018-10-14 19:47 | NUR ---
CALL PLACED FOR DR Harriet ARANA TO CONFIRM THAT HE IS STILL OKAY WITH PATIENT DISCHARGE
--- NOTE | 2018-10-14 20:12 | NUR ---
SECOND CALL PLACED FOR DR Harriet ARANA
--- NOTE | 2018-10-14 20:25 | NUR ---
DR Harriet ARANA RETURNED CALL, OK WITH DISCHARGE.
--- NOTE | 2018-10-14 20:52 | NUR ---
IV ACCESS DISCONTINUED, DISCHARGE PRESCRIPTIONS AND INSTRUCTIONS PROVIDED TO PATIENT, ESCORTED TO PRIVATE VEHICLE PER W/C AND DISCHARGED HOME TO SELF CARE
[2018-10-14] MEDS ORDERED: INSULIN GLARGINE 100 UNITS/ML VIAL SQ SCH (21:00)
[2018-10-15] MEDS ORDERED: INSULIN GLARGINE 100 UNITS/ML VIAL SC SCH (09:00)
== END 2018-10-14 20:54 | disposition home or self-care (01) | DRG 189 ==
LOC: ER 03:22 → ERHOLD 09:53 → ICU 11:46
DX: J96.22 Acute and chronic respiratory failure with hypercapnia (principal); J44.1 Chronic obstructive pulmonary disease with (acute) exacerbation; E66.2 Morbid (severe) obesity with alveolar hypoventilation; Z68.41 Body mass index [BMI] 40.0-44.9, adult; J45.901 Unspecified asthma with (acute) exacerbation; M54.9 Dorsalgia, unspecified; G89.29 Other chronic pain; G47.33 Obstructive sleep apnea (adult) (pediatric)
CPT/HCPCS: 36415; 36600; 71046; 80053; 81001; 82550; 82553; 82805; 82948; 83690; 83735; 83880; 84484; 85025; 87040; 94640; 94660; 96372; 99284; J1815; J2930

== ENCOUNTER 2018-11-27 04:04 | Emergency (ER) | payer MEDICARE ==
[~2018-11-27] VITALS: Ht 180.3 cm; Wt 133.4 kg
[~2018-11-27 04:04] MED LIST changes: +HYDROCODON-ACE1 EAC9 PO; +LORAZEPAM1 MG PO; +MELOXICAM15 MG PO; +PROAIR HFA INH8.5 GM INH; +ZOLPIDEM TARTRA10 MG PO
[2018-11-27] MEDS ORDERED: KETOROLAC TROMETHAMINE 60 MG/2 ML VIAL IM ONE (04:30)
--- NOTE | 2018-11-27 05:18 | Diagnostic Imaging Report ---
EXAMINATION: CHEST 2 VIEWS INDICATION: Slip and fall. COMPARISON: 10/13/2018. FINDINGS: TUBES and LINES: None. LUNGS: Lungs are not well inflated. Bibasilar subsegmental atelectasis. There is no evidence of pneumonia or pulmonary edema. PLEURA: No pleural effusion or pneumothorax. HEART AND MEDIASTINUM: The cardiomediastinal silhouette is unremarkable. BONES AND SOFT TISSUES: No acute osseous lesion. Mild anterior wedging of is stable. Multilevel spondylosis. UPPER ABDOMEN: No free air under the diaphragm. IMPRESSION: No acute thoracic abnormality. Bibasilar subsegmental atelectasis. Signed by: Dr. Gabino Tyson M.D. on 11/27/2018 5:14 AM
--- NOTE | 2018-11-27 05:20 | Diagnostic Imaging Report ---
KNEE RIGHT THREE VIEWS - 3 views HISTORY: Pain status post fall. COMPARISON: None available. FINDINGS: Bones: No acute displaced fracture. Osseous alignment is within normal limits. Joints: Moderate to severe tricompartmental degenerative osteoarthrosis. Soft tissues: Trace joint effusion. IMPRESSION: Moderate to severe tricompartmental degenerative osteoarthrosis. Signed by: Dr. Gabino Tyson M.D. on 11/27/2018 5:16 AM
[2018-11-27 06:54] VITALS: BP 144/61
== END 2018-11-27 06:57 | disposition home or self-care (01) ==
LOC: ER 04:04
DX: S80.01XA Contusion of right knee, initial encounter (principal); M25.461 Effusion, right knee; S20.211A Contusion of right front wall of thorax, initial encounter; W01.0XXA Fall on same level from slipping, tripping and stumbling without subsequent striking against object, initial encounter; Y92.002 Bathroom of unspecified non-institutional (private) residence as the place of occurrence of the external cause; I10 Essential (primary) hypertension; E11.9 Type 2 diabetes mellitus without complications; J44.9 Chronic obstructive pulmonary disease, unspecified; I50.9 Heart failure, unspecified; F41.9 Anxiety disorder, unspecified
CPT/HCPCS: 71046; 73562; 99283; J1885

== ENCOUNTER 2018-12-18 21:55 | Emergency (ER) | payer MEDICARE ==
[~2018-12-18] VITALS: Ht 180.3 cm; Wt 133.4 kg
== END 2018-12-18 22:45 | disposition left against medical advice (07) ==
LOC: ER 21:55
DX: M25.561 Pain in right knee (principal)

== ENCOUNTER 2019-01-24 02:09 | Emergency (ER) | payer MEDICARE ==
[~2019-01-24] VITALS: Ht 180.3 cm; Wt 133.4 kg
[2019-01-24 02:54] LABS: BASOPHILS % 0.2 % (0.0-1.0); EOSINOPHILS # (AUTO) 0.1 (0.0-0.4); EOSINOPHILS % 1.1 % (0.0-6.0); HEMOGLOBIN 15.4 g/dL (14.0-18.0); LYMPHOCYTES # (AUTO) 2.9 (1.0-3.2); LYMPHOCYTES % 45.6 % (18.0-39.1); MEAN CORPUSCULAR HEMOGLOBIN 29.3 pg (28-32); MEAN CORPUSCULAR HGB CONC 32.8 g/dL (31-35); MEAN CORPUSCULAR VOLUME 89.4 fL (81-99); MONOCYTES # (AUTO) 0.4 (0.2-0.8); MONOCYTES % 6.8 % (4.4-11.3); NEUTROPHILS % 46.1 % (38.7-80.0); PLATELET COUNT 254 x10e3/uL (140-360); RED BLOOD COUNT 5.26 x10e6/uL (4.3-5.7); RED CELL DISTRIBUTION WIDTH 13.1 % (11.7-14.4)
[2019-01-24 03:12] LABS: ALANINE AMINOTRANSFERASE 14 IU/L (0-55); ALBUMIN 3.9 g/dL (3.5-5.0); ALKALINE PHOSPHATASE 75 IU/L (40-150); ANION GAP 16.1 mmol/L (8-16); BLOOD UREA NITROGEN 16 mg/dL (7-26); BUN/CREATININE RATIO 16 (6-25); CARBON DIOXIDE 29 mmol/L (22-29); CHLORIDE 90 mmol/L (98-107); CREATINE KINASE 82 IU/L (30-200); CREATININE, SERUM 0.97 mg/dL (0.72-1.25); EST GLOMERULAR FILTRATION RATE > 60 ML/MIN (60-); GLUCOSE 309 mg/dL (74-118); POTASSIUM 4.1 mmol/L (3.5-5.1); SODIUM 131 mmol/L (136-145)
--- NOTE | 2019-01-24 03:14 | Diagnostic Imaging Report ---
EXAMINATION: CHEST 2 VIEWS INDICATION: ^sob ^[id number] ^[id number] ^Y COMPARISON: 11/27/2018 FINDINGS: PA and lateral views TUBES and LINES: None. LUNGS: Limited by body habitus and low lung volumes. Patient's chin obscures extreme apices. Mild central vascular congestion. Unchanged left midlung linear atelectasis/scarring. PLEURA: No significant pleural effusion or pneumothorax. HEART AND MEDIASTINUM: Normal cardiac silhouette. Aorta is tortuous. BONES AND SOFT TISSUES: No acute osseous lesion. Soft tissues are unremarkable. UPPER ABDOMEN: No free air under the diaphragm. IMPRESSION: Limited as above. Mild central vascular congestion. No definite focal consolidation. Signed by: Dr. Vinod Copeland MD on 01/24/2019 3:11 AM
--- NOTE | 2019-01-24 04:32 | Diagnostic Imaging Report ---
FOOT LEFT COMPLETE - 3 views HISTORY: Pain COMPARISON: None available. FINDINGS: No acute displaced fracture or dislocation. No periosteal reaction, erosion, or abnormal soft tissue calcification. Mild hallux valgus deformity. Lateral malleolar plate and screw and medial malleolar screw fixations. Tibiotalar degenerative changes. IMPRESSION: No acute radiographic abnormality. Signed by: Dr. Vinod Copeland MD on 01/24/2019 4:29 AM
[2019-01-24 04:52] VITALS: BP 132/82
== END 2019-01-24 05:10 | disposition home or self-care (01) ==
LOC: ER 02:09
DX: R06.09 Other forms of dyspnea (principal); M79.672 Pain in left foot; R60.9 Edema, unspecified
CPT/HCPCS: 36415; 71046; 80053; 82550; 82553; 83880; 84484; 85025; 93005; 99283

== ENCOUNTER 2019-02-04 00:17 | Inpatient (IN) | payer MEDICARE ==
[~2019-02-04] VITALS: Ht 180.3 cm; Wt 127.0 kg
[2019-02-04] MEDS ORDERED: ALBUTEROL/IPRATROPIUM 3 ML NEB NEB ONE ×2 (00:30→01:30)
[2019-02-04] MEDS ORDERED: METHYLPREDNISOLONE SOD SUCC 125 MG/2ML VIAL IV ONE (01:15)
[2019-02-04 01:46] LABS: ABG HCO3 31 mmol/L (23-28); ABG PCO2 53 mmHg (41-51); ABG PH 7.37 (7.31-7.41); ABG PO2 97 mmHg (80-105)
--- NOTE | 2019-02-04 02:16 | Diagnostic Imaging Report ---
EXAMINATION: CHEST SINGLE (PORTABLE) COMPARISON: Chest x-ray 01/24/2019 INDICATION: Shortness of breath ^Dyspnea ^[id number] ^[id number] DISCUSSION: Frontal view of the chest obtained at 0150 hours. HEART AND MEDIASTINUM: Lung volumes are low which accentuates the cardiac size LINES: None. LUNGS: Subsegmental atelectasis in the left midlung field. Poor visualization of the left diaphragm. Right lung is clear. Pulmonary vascular markings are normal. PLEURA: No pleural effusion or pneumothorax. BONES AND SOFT TISSUES: Degenerative changes of the spine. No focal osseous lesion. The soft tissues are normal. IMPRESSION: Low lung volumes with poor visualization left diaphragm suggestive of subsegmental atelectasis. Signed by: Dr. Mila Treadwell MD on 02/04/2019 2:13 AM
[2019-02-04] MEDS ORDERED: ASPIRIN 81 MG CHEW TAB PO ONE (02:45)
[2019-02-04] MEDS ORDERED: SODIUM CHLORIDE FLUSH 10 ML SYR INJ PRN (02:45)
[2019-02-04] MEDS: ALBUTEROL/IPRATROPIUM 3 ML NEB NEB SCH ×7 (03:00→23:02)
[2019-02-04 03:37] LABS: BASOPHILS % 0.3 % (0.0-1.0); EOSINOPHILS # (AUTO) 0.1 (0.0-0.4); EOSINOPHILS % 1.4 % (0.0-6.0); HEMATOCRIT 43.3 % (38.2-49.6); LYMPHOCYTES # (AUTO) 2.4 (1.0-3.2); LYMPHOCYTES % 40.2 % (18.0-39.1); MEAN CORPUSCULAR HEMOGLOBIN 29.2 pg (28-32); MEAN CORPUSCULAR HGB CONC 32.3 g/dL (31-35); MEAN CORPUSCULAR VOLUME 90.2 fL (81-99); MONOCYTES # (AUTO) 0.5 (0.2-0.8); MONOCYTES % 8.6 % (4.4-11.3); NEUTROPHILS # (AUTO) 2.9 (2.1-6.9); NEUTROPHILS % 49.3 % (38.7-80.0); PLATELET COUNT 261 x10e3/uL (140-360); RED CELL DISTRIBUTION WIDTH 13.2 % (11.7-14.4)
[2019-02-04 03:55] LABS: ALANINE AMINOTRANSFERASE 14 IU/L (0-55); ALBUMIN 3.7 g/dL (3.5-5.0); ALBUMIN/GLOBULIN RATIO 1.1 (0.8-2.0); ALKALINE PHOSPHATASE 63 IU/L (40-150); ANION GAP 16.3 mmol/L (8-16); BLOOD UREA NITROGEN 18 mg/dL (7-26); BUN/CREATININE RATIO 15 (6-25); CALCIUM 9.6 mg/dL (8.4-10.2); CARBON DIOXIDE 27 mmol/L (22-29); CHLORIDE 96 mmol/L (98-107); CREATININE, SERUM 1.19 mg/dL (0.72-1.25); EST GLOMERULAR FILTRATION RATE > 60 ML/MIN (60-); POTASSIUM 4.3 mmol/L (3.5-5.1); SODIUM 135 mmol/L (136-145)
[2019-02-04 04:00] LABS: GLUCOSE 429 mg/dL (74-118)
[2019-02-04 04:03] LABS: CREATINE KINASE MB 1.9 ng/mL (0-5.0)
[2019-02-04] MEDS ORDERED: DEXTROSE 50% SYRINGE 50 ML IV PRN (04:15)
[2019-02-04] MEDS ORDERED: HYDROCODONE/APAP 10MG-325MG TAB PO PRN (04:15)
[2019-02-04] MEDS: MORPHINE SULFATE INJ 4 MG/ML INJ 1ML IV PRN ×2 (04:40→13:05)
[2019-02-04] MEDS: ONDANSETRON HCL INJ 2MG/ML 2ML 2 MG/ML VIAL IV PRN ×2 (04:41→18:39)
[2019-02-04] MEDS ORDERED: FUROSEMIDE INJ 10 MG/ML 4 ML VIAL IV ONE (04:45)
[2019-02-04] MEDS ORDERED: FUROSEMIDE INJ 10 MG/ML 2 ML VIAL ONE (04:48)
[2019-02-04] MEDS ORDERED: INSULIN REGULAR, HUMAN 100 UNIT/1 ML 3ML VIAL ONE (04:48)
[2019-02-04] MEDS: INSULIN REGULAR, HUMAN 100 UNIT/1 ML 3ML VIAL SQ SCH ×5 (04:56→17:47)
[2019-02-04] MEDS ORDERED: METHYLPREDNISOLONE SOD SUCC 125 MG/2ML VIAL IV SCH (06:00)
--- NOTE | 2019-02-04 09:07 | NUR ---
PAGED DR. ARANA REGARGING BS [id number] AND ORDERED DOSE OF SOLUMEDROL. AWAITING CALL BACK
--- NOTE | 2019-02-04 09:34 | NUR ---
SPOKE WITH DR. GUALLPA, ADMITTING DOC CHANGED DUE TO [facility]; PROVIDED BACKGROUND INFO OF PATIENT TO DOCTOR. INFORMED OF CURRENT BLOOD SUGAR AND PENDING DOSE OF SOLUMEDROL. PER DR. GUALLPA, OK TO GIVE SOLU-MEDROL.
[2019-02-04 11:05] LABS: CREATINE KINASE MB 2.5 ng/mL (0-5.0)
[2019-02-04] MEDS ORDERED: HYDRALAZINE HCL 20 MG/ML VIAL IV PRN (12:00)
--- NOTE | 2019-02-04 12:13 | NUR ---
ATTEMPTED TO NOTIFY DR. GUALLPA OF BLOOD SUGAR; NO ANSWER; PATIENT MEDICATED, PER ORDER
[2019-02-04] MEDS: FUROSEMIDE INJ 10 MG/ML 4 ML VIAL IV SCH ×3 (12:18→23:23)
--- NOTE | 2019-02-04 14:29 | History and Physical ---
CHIEF COMPLAINT: Shortness of breath, orthopnea, dyspnea on exertion. HISTORY OF PRESENT ILLNESS: This is a 53-year-old male, morbidly obese, history of hypertension, chronic shortness of breath from hospice COPD, CAD, heart failure unknown dysfunction, presents to the ED with complaints of worsening lower extremity edema, orthopnea, and dyspnea on exertion that has been ongoing for the last several days. The patient reports that he is on oral Lasix and he has run out of his Lasix for several days now. He does not follow up with a perinatal social worker. He was diagnosed with an unknown dysfunction heart failure back in [facility]. He follows with Pulmonary as well. The patient denies any chest pain, palpitation, nausea, or vomiting. The patient is seen and evaluated at bedside on the medical floor. In the ER, he is currently doing well, he is on nasal cannula, vital signs were stable when I evaluated him. He states that he is breathing much better now after given IV diuretics in the ER. REVIEW OF SYSTEMS: Pertinent positives: Shortness of breath, dyspnea on exertion, lower extremity edema. Pertinent negatives: Denies any chest pain, palpitation, nausea, vomiting, diarrhea, dysuria, hematuria, frequency, urgency, lightheadedness, dizziness, abdominal pain, headache, cough, congestion, fever, or any other complaints. The rest of 14-point review of systems have been reviewed with the patient and are negative. ALLERGIES: LISINOPRIL. HOME MEDICATIONS: Lipitor 20 mg at bedtime, buspirone 5 mg p.o. b.i.d., Coreg 12.5 mg p.o. b.i.d., hydralazine 25 mg b.i.d., loratadine, nifedipine ER 30 mg b.i.d., takes [place] at home, Lasix 40 mg p.o. b.i.d., metformin 500 mg p.o. b.i.d., prednisone 20 mg daily, Meloxicam and Ambien. PAST MEDICAL HISTORY: History of heart failure, unknown dysfunction; hypertension; type 2 diabetes; history of chronic shortness of breath; COPD; history of depression. PAST SURGICAL HISTORY: Reports none. FAMILY HISTORY: Hypertension and diabetes. SOCIAL HISTORY: No drugs. No alcohol. Does not smoke. Good social support. PHYSICAL EXAMINATION: VITAL SIGNS: Temperature recorded at 99.5, pulse 98, respiratory rate is 16, blood pressure 129/85, and pulse ox is 99% on 2 L nasal cannula. GENERAL: Not in acute distress. Alert and oriented x3. Cooperative on examination. HEENT: Head is normocephalic and atraumatic. Eyes; pupils are equal, round, and reactive to light bilaterally. Extraocular movements are intact bilaterally. Throat, no evidence of any erythema or exudates in the posterior pharynx. Has poor dentition. NECK: Supple. Good range of motion. PULMONARY: Clear to auscultation bilaterally. Positive rales. No expiratory wheezing appreciated. Fine crackles appreciated. CARDIOVASCULAR: Positive S1, S2. No murmurs, rubs, or gallops appreciated. ABDOMEN: Soft, nondistended, and nontender to palpation. Bowel sounds present. MUSCULOSKELETAL: Strength is 5/5 throughout. No evidence of any muscle deficits on examination. No weakness appreciated. NEUROLOGICAL: Cranial nerves 2 through 12 grossly intact. No evidence of any neurological deficits on exam. SKIN: Intact. Warm to touch. Good cap refill. PSYCHIATRIC: Normal affect and mood. EXTREMITIES: He does have trace to 1+ pedal edema. LABORATORY DATA: Lab findings show white count 5.9, hemoglobin 14, hematocrit is 43, platelets of 261. Blood gas shows ABG; pH 7.3, pCO2 of 53, PaO2 of 97, bicarbonate is 31. Sodium 135, potassium is 4.3, chloride 96, bicarb is 27, anion gap of 16, BUN 18, creatinine is 1.1, his glucose was 429, calcium is 9.6. Total bilirubin is 0.3, AST 15, ALT of 14, and alkaline phosphatase 63. Troponins were negative. Albumin 3.7. BNP 62. IMAGING STUDIES: Chest x-ray represent poor visualization of left diaphragm suggestive of subsegmental atelectasis. IMPRESSION: 1. Exacerbation of congestive heart failure with unknown dysfunction. 2. History of chronic obstructive pulmonary disease. 3. Type 2 diabetes. 4. Hypertension. 5. Shortness of breath could be secondary to volume overload from congestive heart failure exacerbation. 6. Morbid obesity. PLAN: At this time, continue with IV diuretics, Lasix 40 mg IV q.6 hours. Decrease mg b.i.d. neb treatments. Pulmonary and Cardiology consulted. Put on insulin sliding scale. Hemoglobin A1c in the morning. Resume same antihypertensive medications. Encourage ambulation. Heart healthy diet. Restarted all his home medications except for metformin. We will continue same plan of care and follow up with consultants. MD HERMES Freeman/MODL /[id number]
[2019-02-04] MEDS ORDERED: IPRATROPIUM BROMIDE 0.06% 42 MCG NASPR NS SCH (15:00)
--- NOTE | 2019-02-04 15:24 | Consultation ---
DATE OF CONSULTATION: 02/04/2019 Pulmonary Medicine Consult PRIMARY CARE DOCTOR: Dr. Omi Sapp. CHIEF COMPLAINT: Shortness of breath. HISTORY OF PRESENT ILLNESS: Mr. Mcqueen is a pleasant 53-year-old gentleman with shortness of breath. The patient was in usual state of health until a couple of days ago. He started to get increased nasal congestion. The nasal congestion ran down into his lungs. He is having more difficulty breathing. He does not recall any explicit exposures that he has that triggered this worsening. The patient was getting progressively short of breath and his oxygen was not helping him at home. He came to emergency room. He was given emergency BiPAP to help him breathe. He was given high doses of steroids and he is starting to feel a little bit better. He has been just taken off BiPAP. I am consulted. PAST MEDICAL HISTORY: Hypertension, diabetes, asthma probably nonallergic, obesity, bronchitis, obstructive sleep apnea, and knee and ankle surgery. MEDICATIONS: Medication list reviewed per the chart record. ALLERGIES: LISINOPRIL. SOCIAL HISTORY: The patient does not drink, does not use drugs. He is a nonsmoker. Fiancee is present at bedside. REVIEW OF SYSTEMS: GENERAL: No weight changes. OPHTHALMOLOGIC: No double vision. ENT: No mouth ulcers. ENDOCRINE: No thyroid disease known. PULMONARY: No hemoptysis. CARDIAC: No heart attacks. GI: No constipation. : No blood in urine. MUSCULOSKELETAL: Only mild arthritis. NEUROLOGIC: No seizures. DERMATOLOGIC: No rashes. OBJECTIVE: VITAL SIGNS: Afebrile, vital signs noted per the chart record. GENERAL: In no acute distress, alert and calm right now, now off BiPAP. HEENT: Normocephalic, atraumatic. NECK: Supple. Throat midline. LUNGS: Bilateral air entry is limited, decreased breath sounds especially at the left side. CARDIOVASCULAR: S1, S2. No murmurs, rubs, or gallops. ABDOMEN: Soft, nontender. EXTREMITIES: No clubbing, no cyanosis. There is only trace edema in the legs. INTEGUMENT: No rash, no purpura. LABORATORY DATA: Labs reviewed per the chart record. RADIOGRAPHY: Low lung volumes, mostly clear. IMPRESSION AND PLAN: 1. Acute respiratory failure, status post BiPAP salvage. 2. Acute on chronic bronchitis. 3. Nonallergic asthma with exacerbation. 4. Obesity hypoventilation. 5. Obstructive sleep apnea. 6. Hypertension. 7. Diabetes. Reviewed chart. The patient never had eosinophilic levels in the serum and we will consider recheck in one day when he is off steroids. IgE level was 6 in the past, HIV negative, rheumatoid factor negative, JAZMIN negative, C3 and C4 negative. Treat with some steroids and wean. The patient may need consideration for allergy panel by RAST and consideration for immunotherapy by this means. The patient will be added on outpatient theophylline and he needs consideration of Daliresp if better after PFTs. He has switched insurance, so I will have to switch his oxygen over if he qualifies. I will have to get him a new sleep apnea device with his new insurance now. N-acetylcysteine is recommended. Means to decrease nasal congestion are also recommended and we will start with Atrovent nasal sprays and saline nose sprays. Thank you very much, Dr. Qureshi and Dr. Omi Sapp for allowing me a chance to participate in care of Mr. Jaime Mcqueen. Please call for questions. MD ALBANIA Alanis/SATHYA /[id number]
[2019-02-04] MEDS: MUPIROCIN 2% OINT 22 GM TUBE TOP SCH (17:00)
[2019-02-04] MEDS: BUSPIRONE HCL 5 MG TAB PO SCH ×2 (17:00→19:03)
[2019-02-04] MEDS: CARVEDILOL 12.5 MG TAB PO SCH (18:05)
[2019-02-04] MEDS: HYDRALAZINE HCL 25 MG TAB PO SCH (18:06)
[2019-02-04] MEDS: ENOXAPARIN SOD INJ 40 MG/0.4 ML SYR SC SCH (18:07)
[2019-02-04] MEDS: NIFEDIPINE CR 30 MG TAB PO SCH (18:07)
--- NOTE | 2019-02-04 18:10 | NUR ---
RN from ER reported that pt came for SOB lasting for 2 days, HX: COPD, CHF, DM, HTN, HLD, and morbid obesity. received pt from ER via wheelchair, no s/s of distress. pt is AOx3, on 3-4 L O2 via nc, has a R FA piv 20g SL, asymptomatic. pt complains of back pain and is requesting pain medicine. is at the bedside.
[2019-02-04] MEDS: HYDROCODONE/APAP 10MG-325MG TAB PO PRN (18:39)
[2019-02-04 18:40] VITALS: BP 135/91
[2019-02-04 18:47] VITALS: BP 135/91
[2019-02-04 19:30] VITALS: BP 140/88
[2019-02-04 20:00] VITALS: BP 140/88
[2019-02-04 20:18] LABS: CREATINE KINASE MB 3.9 ng/mL (0-5.0)
[2019-02-04] MEDS: ATORVASTATIN 20 MG TAB PO SCH (21:47)
[2019-02-04] MEDS: METHYLPREDNISOLONE SOD SUCC 40 MG/ML VIAL 1ML IV SCH (21:47)
[2019-02-04] MEDS: INSULIN GLARGINE 100 UNITS/ML VIAL SQ SCH (21:53)
--- NOTE | 2019-02-04 22:02 | NUR ---
CALLED DR. Agatha ARANA ANSWERING SERVICE TO ORDER AMBIEN 10 MG PO FOR PATIENT'S HOME MEDICATION. WAITING FOR CALL BACK.
--- NOTE | 2019-02-04 23:07 | NUR ---
PER DR. GUALLPA, PATIENT CAN NOT HAVE AMBIEN BUT CAN HAVE MELATONIN 5 MG PO HS PRN.
[2019-02-04] MEDS: MELATONIN 5 MG TABLET PO PRN (23:23)
[2019-02-05] VITALS (8 sets, daily range): BP systolic 108–151; BP diastolic 64–92
[2019-02-05] MEDS: ALBUTEROL/IPRATROPIUM 3 ML NEB NEB SCH ×6 (02:50→23:22)
[2019-02-05] MEDS: HYDROCODONE/APAP 10MG-325MG TAB PO PRN ×3 (05:37→23:32)
[2019-02-05] MEDS: FUROSEMIDE INJ 10 MG/ML 4 ML VIAL IV SCH (05:37)
[2019-02-05 06:31] LABS: ANION GAP 18.1 mmol/L (8-16); BLOOD UREA NITROGEN 25 mg/dL (7-26); BUN/CREATININE RATIO 18 (6-25); CALCIUM 9.8 mg/dL (8.4-10.2); CARBON DIOXIDE 29 mmol/L (22-29); CHLORIDE 92 mmol/L (98-107); CREATININE, SERUM 1.36 mg/dL (0.72-1.25); EST GLOMERULAR FILTRATION RATE > 60 ML/MIN (60-); GLUCOSE 386 mg/dL (74-118); POTASSIUM 4.1 mmol/L (3.5-5.1); SODIUM 135 mmol/L (136-145)
[2019-02-05 07:06] LABS: BASOPHILS % 0.1 % (0.0-1.0); HEMATOCRIT 43.9 % (38.2-49.6); HEMOGLOBIN 14.5 g/dL (14.0-18.0); LYMPHOCYTES % 15.2 % (18.0-39.1); MEAN CORPUSCULAR HEMOGLOBIN 29.5 pg (28-32); MEAN CORPUSCULAR VOLUME 89.4 fL (81-99); MONOCYTES # (AUTO) 0.5 (0.2-0.8); MONOCYTES % 3.5 % (4.4-11.3); NEUTROPHILS # (AUTO) 10.4 (2.1-6.9); NEUTROPHILS % 80.7 % (38.7-80.0); PLATELET COUNT 297 x10e3/uL (140-360); RED BLOOD COUNT 4.91 x10e6/uL (4.3-5.7); RED CELL DISTRIBUTION WIDTH 13.2 % (11.7-14.4)
--- NOTE | 2019-02-05 07:40 | NUR ---
RECEIVED PATIENT AWAKE RESTING IN BED NO S/S OF DISTRESS. CALL LIGHT IN REACH, BED LOW, WHEELS LOCKED, WILL CONTINUE TO MONITOR PATIENT.
[2019-02-05] MEDS: BUSPIRONE HCL 5 MG TAB PO SCH ×2 (08:51→16:18)
[2019-02-05] MEDS: NIFEDIPINE CR 30 MG TAB PO SCH ×2 (08:51→17:23)
[2019-02-05] MEDS: THEOPHYLLINE 200 MG TABCR PO SCH (08:51)
[2019-02-05] MEDS: HYDRALAZINE HCL 25 MG TAB PO SCH ×2 (08:51→17:23)
[2019-02-05] MEDS: METHYLPREDNISOLONE SOD SUCC 40 MG/ML VIAL 1ML IV SCH (08:51)
[2019-02-05] MEDS: CARVEDILOL 12.5 MG TAB PO SCH ×2 (08:51→17:23)
[2019-02-05] MEDS: MUPIROCIN 2% OINT 22 GM TUBE TOP SCH ×2 (08:51→16:18)
[2019-02-05] MEDS ORDERED: LORATADINE 10 MG TAB PO PRN (09:00)
[2019-02-05] MEDS ORDERED: LORATADINE 10 MG TAB PO SCH (09:00)
[2019-02-05] MEDS: INSULIN REGULAR, HUMAN 100 UNIT/1 ML 3ML VIAL SQ SCH ×4 (09:09→21:10)
--- NOTE | 2019-02-05 09:50 | NUR ---
NOTIFIED DR. GUALLPA REGARDING MORNING BLOOD SUGAR 408. ORDER TO CHANGE SOLU-MEDROL TO DAILY. GAVE 26 UNITS ACCORDING TO SLIDING SCALE. WILL CONTINUE TO MONITOR.
--- NOTE | 2019-02-05 12:36 | NUR ---
Pulmonary Medicine Consult DATE OF ENCOUNTER: 02/05/19 SUBJECTIVE: No bipap last night, on standby 2.5 L/min oxygen flow BM eats REVIEW OF SYSTEMS: no rashes, no headaches OBJECTIVE: VITAL SIGNS: vital signs noted per the chart record. GENERAL: In no acute distress, alert and calm right now, now off BiPAP. HEENT: Normocephalic, atraumatic. NECK: Supple. Throat midline. LUNGS: Bilateral air entry, decreased breath sounds at bases CARDIOVASCULAR: S1, S2. No murmurs, rubs, or gallops. ABDOMEN: Soft, nontender. EXTREMITIES: No clubbing, no cyanosis. trace edema INTEGUMENT: No rash, no purpura. LABORATORY DATA: Labs reviewed per the chart record. 4.1 k, 1.36 cr, bun 25. wbc 13, 44 hct, 297 plt IMPRESSION AND PLAN: 1. Acute respiratory failure, s/p BiPAP salvage. 2. Acute on chronic bronchitis. 3. Nonallergic asthma with exacerbation. 4. Obesity hypoventilation. 5. Obstructive sleep apnea. 6. Hypertension. 7. Diabetes. No significant serum eosinophilic levels, consider future reassessment when off steroids. IgE level 6 HIV negative rheumatoid factor negative JAZMIN negative C3 / C4 negative Steroids wean outpatient consideration for allergy panel by RAST and immunotherapy if qualifies started theophylline (vs Daliresp if qualifies) Home oxygen if he qualifies. Will need a new sleep apnea device with his new insurance, will arrange. PO N-acetylcysteine nasal congestion treatment with Atrovent and saline nose sprays. Thank you very much, Dr. Qureshi and Dr. Omi Sapp for allowing me a chance to participate in care of Mr. aJime Mcqueen. Please call for questions.
[2019-02-05] MEDS ORDERED: NAC600 MG PO (12:41)
[2019-02-05] MEDS ORDERED: PREDNISONE10 MG PO (12:41)
[2019-02-05] MEDS ORDERED: THEO-24400 MG PO (12:41)
[2019-02-05] MEDS ORDERED: THEOPHYLLINE A200 MG PO (12:41)
--- NOTE | 2019-02-05 13:14 | Progress Note ---
DATE: 02/05/2019 Medicine Progress Note SUBJECTIVE: The patient is still on oxygen. He reports doing much better now. He is breathing better. No overnight events. He denies being orthopneic or dyspneic on exertion. His edema improved tremendously. Still awaiting on Cardiology recommendations. PHYSICAL EXAMINATION: VITAL SIGNS: Temperature 97, pulse 92, respiratory rate is 18, blood pressure 118/73, pulse ox 92% on 2.5 L nasal cannula. GENERAL: Not in acute distress. Alert and oriented x3. Cooperative on examination. HEENT: Head is normocephalic and atraumatic. Eyes; pupils are equal, round, and reactive to light bilaterally. Extraocular movements are intact bilaterally. Throat, no evidence of any erythema or exudates in the posterior pharynx. Has poor dentition. NECK: Supple. Good range of motion throughout. PULMONARY: Clear to auscultation bilaterally. He does have positive rales and mild crackles appreciated. No wheezing or rhonchi. CARDIOVASCULAR: Positive S1, S2. No murmurs, rubs, or gallops appreciated. ABDOMEN: Soft, nondistended, and nontender to palpation. Bowel sounds present. MUSCULOSKELETAL: Strength is 5/5 throughout. No evidence of any muscle deficits on examination. No weakness appreciated. NEUROLOGICAL: Cranial nerves II through XII grossly intact. No evidence of any neurological deficits on exam. SKIN: Intact. Warm to touch. Good cap refill. PSYCHIATRIC: Normal affect and mood. EXTREMITIES: No edema. Good range of motion throughout. LAB FINDINGS: Show a white count of 12.8, hemoglobin 14.5, hematocrit is 44, platelets of 297. His chemistry; sodium 135, potassium 4.1, chloride 92, bicarb 28, anion gap of 18, BUN is 25, creatinine 1.3, glucose is 386, calcium is 9.8. Troponins are all negative. Albumin was 3.7. Microbiology, none. IMAGING STUDIES: None. IMPRESSION: 1. Acute exacerbation of congestive heart failure with unknown dysfunction, possibly diastolic in nature. 2. History of chronic obstructive pulmonary disease. 3. Type 2 diabetes. 4. Hypertension. 5. Shortness of breath secondary to volume overload from congestive heart failure exacerbation. 6. Morbid obesity. PLAN: At this time, awaiting for Cardiology consultation and evaluation. Put him on Bumex 1 mg p.o. b.i.d. He reports breathing much better now. We will reassess for home O2 evaluation, I discussed this with the nurse already. Apparently, he is qualified as an outpatient, but must be tested here and document and submit to insurance company. Pulmonary/Critical Care is following him and we will continue with IV steroids, but we will decrease the dose to 40 daily due to uncontrolled diabetes. Continue with insulin sliding scale. The patient was given 26 units of insulin this morning due to a glucose of greater than 400. Same antihypertensive medications. His blood pressure is stable. His hemoglobin A1c is 12.2. He will likely need to be on insulin upon discharge. He is already on Lantus 10 units subcu at bedtime, which we will go ahead and continue with that order. We will put him on Lovenox for DVT prophylaxis. MD HERMES Freeman/SATHYA /[id number]
[2019-02-05] MEDS: ENOXAPARIN SOD INJ 40 MG/0.4 ML SYR SC SCH (17:23)
[2019-02-05] MEDS: BUMETANIDE 1 MG TAB PO SCH (17:23)
[2019-02-05] MEDS: INSULIN GLARGINE 100 UNITS/ML VIAL SQ SCH (21:10)
[2019-02-05] MEDS: MELATONIN 5 MG TABLET PO PRN (21:36)
[2019-02-05] MEDS: ATORVASTATIN 20 MG TAB PO SCH (21:37)
--- NOTE | 2019-02-05 23:21 | NUR ---
Assessment done.no resp.distress.snacks provided.on o2 3l nasal cannula.bed locked and in lowest position.phone and call light within reach.instructed to call for assistance as needed.
[2019-02-06] VITALS (8 sets, daily range): BP systolic 114–142; BP diastolic 66–92
[2019-02-06 06:05] LABS: BASOPHILS % 0.1 % (0.0-1.0); EOSINOPHILS % 0.2 % (0.0-6.0); HEMATOCRIT 44.9 % (38.2-49.6); HEMOGLOBIN 14.4 g/dL (14.0-18.0); LYMPHOCYTES # (AUTO) 2.9 (1.0-3.2); LYMPHOCYTES % 26.6 % (18.0-39.1); MEAN CORPUSCULAR HEMOGLOBIN 29.3 pg (28-32); MEAN CORPUSCULAR HGB CONC 32.1 g/dL (31-35); MEAN CORPUSCULAR VOLUME 91.3 fL (81-99); MONOCYTES # (AUTO) 0.8 (0.2-0.8); MONOCYTES % 7.3 % (4.4-11.3); NEUTROPHILS # (AUTO) 7.2 (2.1-6.9); NEUTROPHILS % 65.4 % (38.7-80.0); PLATELET COUNT 301 x10e3/uL (140-360); RED BLOOD COUNT 4.92 x10e6/uL (4.3-5.7); RED CELL DISTRIBUTION WIDTH 13.4 % (11.7-14.4)
[2019-02-06 06:17] LABS: ANION GAP 14.1 mmol/L (8-16); BLOOD UREA NITROGEN 28 mg/dL (7-26); BUN/CREATININE RATIO 25 (6-25); CALCIUM 9.5 mg/dL (8.4-10.2); CARBON DIOXIDE 32 mmol/L (22-29); CHLORIDE 93 mmol/L (98-107); CREATININE, SERUM 1.11 mg/dL (0.72-1.25); EST GLOMERULAR FILTRATION RATE > 60 ML/MIN (60-); GLUCOSE 296 mg/dL (74-118); POTASSIUM 4.1 mmol/L (3.5-5.1); SODIUM 135 mmol/L (136-145)
--- NOTE | 2019-02-06 06:55 | NUR ---
Bed side shift report given to the oncoming rn.stable condition.
[2019-02-06] MEDS: ALBUTEROL/IPRATROPIUM 3 ML NEB NEB SCH ×5 (07:16→23:10)
--- NOTE | 2019-02-06 07:17 | NUR ---
RECEIVED PATIENT RESTING IN BED NO S/S OF DISTRESS. BED LOW, WHEELS LOCKED, SIDE RAILS X2. CALL LIGHT IN REACH WILL CONTINUE TO MONITOR.
[2019-02-06] MEDS: MUPIROCIN 2% OINT 22 GM TUBE TOP SCH ×2 (07:29→16:11)
[2019-02-06] MEDS: BUSPIRONE HCL 5 MG TAB PO SCH ×2 (07:29→16:00)
--- NOTE | 2019-02-06 07:56 | NUR ---
RT APPROACHED CM AND STATES O2 FOR THIS PT IS AT 88%, STATES LEFT FORM IN CHART.
[2019-02-06] MEDS: INSULIN REGULAR, HUMAN 100 UNIT/1 ML 3ML VIAL SQ SCH ×4 (08:00→20:44)
--- NOTE | 2019-02-06 09:15 | NUR ---
PATIENT A/O X3, EVEN RESPIRATIONS ON 2.5LNC. BOWEL SOUNDS ACTIVE, SKIN INTACT, 1+ COMPUTER HARDWARE ENGINEER EDEMA BILATERAL LOWER EXTREMITIES. RIGHT FA 20 GAUGE IV SL. IV INTACT AND PATENT. TELEMETRY #32 SR. VITAL SIGNS STABLE. CALL LIGHT IN REACH, WILL CONTINUE TO MONITOR PATIENT.
[2019-02-06] MEDS: METHYLPREDNISOLONE SOD SUCC 40 MG/ML VIAL 1ML IV SCH (09:20)
[2019-02-06] MEDS: BUMETANIDE 1 MG TAB PO SCH (09:21)
[2019-02-06] MEDS: HYDRALAZINE HCL 25 MG TAB PO SCH ×2 (09:21→17:09)
[2019-02-06] MEDS: THEOPHYLLINE 200 MG TABCR PO SCH (09:21)
[2019-02-06] MEDS: NIFEDIPINE CR 30 MG TAB PO SCH ×2 (09:21→17:09)
[2019-02-06] MEDS: CARVEDILOL 12.5 MG TAB PO SCH ×2 (09:21→17:00)
[2019-02-06] MEDS: HYDROCODONE/APAP 10MG-325MG TAB PO PRN ×2 (11:29→19:32)
--- NOTE | 2019-02-06 13:00 | NUR ---
GOT CHOICE SIGNED FOR [facility] FOR OXYGEN AND ALERTED REP, WAITING ON RESPONSE.
[2019-02-06] MEDS ORDERED: ZITHROMAX250 MG PO (13:08)
--- NOTE | 2019-02-06 13:41 | NUR ---
Pulmonary Medicine DATE OF ENCOUNTER: 02/06/19 SUBJECTIVE: BM eats slept better 02/05/19 patient with 88% RA oxygen saturation at rest REVIEW OF SYSTEMS: no rashes, no headaches OBJECTIVE: VITAL SIGNS: vital signs noted per the chart record. GENERAL: NAD, alert and calm HEENT: Normocephalic, atraumatic. NECK: Supple. Throat midline. LUNGS: Bilateral air entry, decreased breath sounds at bases CARDIOVASCULAR: S1, S2. No murmurs, rubs, or gallops. ABDOMEN: Soft, nontender. EXTREMITIES: No clubbing, no cyanosis. trace edema INTEGUMENT: No rash, no purpura. LABORATORY DATA: Labs reviewed per the chart record. 4.1 k, 1.1 cr. 11 wbc, 45 hct. IMPRESSION AND PLAN: 1. Acute respiratory failure, s/p BiPAP salvage. 2. Acute on chronic bronchitis. 3. Nonallergic asthma with exacerbation. 4. Obesity hypoventilation. 5. Obstructive sleep apnea. 6. Hypertension. 7. Diabetes. No significant serum eosinophilic levels, consider future reassessment when off steroids. IgE level 6 HIV negative rheumatoid factor negative JAZMIN negative C3 / C4 negative Steroids wean outpatient consideration for allergy panel by RAST and immunotherapy if qualifies continue theophylline (vs Daliresp if qualifies) Home oxygen if he qualifies. Will need a new sleep apnea device with his new insurance, will arrange from clinic. PO N-acetylcysteine nasal congestion treatment with Atrovent and saline nose sprays. azithromycin Thank you very much, Dr. Qureshi and Dr. Omi Sapp for allowing me a chance to participate in care of Mr. Jaime Mcqueen. Please call for questions.
--- NOTE | 2019-02-06 13:44 | Progress Note ---
DATE: 02/06/2019 Medicine Progress Note SUBJECTIVE: The patient is doing well today with no complaints. He does qualify for home O2, which was evaluated this morning. We are going to work on getting him home O2. Cardiology still has not evaluated the patient. PHYSICAL EXAMINATION: VITAL SIGNS: Temperature 98.6, pulse 87, respiratory rate is 20, blood pressure 114/75, pulse ox is 95%, he is on 2.5 L of nasal cannula. GENERAL: Not in acute distress. Alert and oriented x3. Cooperative on examination. HEENT: Head is normocephalic and atraumatic. Eyes; pupils are equal, round, and reactive to light bilaterally. Extraocular movements are intact bilaterally. Throat, no evidence of erythema or exudates in the posterior pharynx. Has poor dentition. NECK: Supple. Good range of motion. PULMONARY: Clear to auscultation bilaterally. No wheezing, no rales, no rhonchi, no crackles appreciated. CARDIOVASCULAR: Positive S1, S2. No murmurs, rubs, or gallops appreciated. ABDOMEN: Soft, nondistended, and nontender to palpation. Bowel sounds present. MUSCULOSKELETAL: Strength is 5/5 throughout. No evidence of any muscle deficits on examination. No weakness appreciated. NEUROLOGICAL: Cranial nerves 2 through 12 grossly intact. No evidence of any neurological deficits on exam. SKIN: Intact. Warm to touch. Good cap refill. PSYCHIATRIC: Normal affect and mood. EXTREMITIES: No edema. Good range of motion throughout. LABORATORY DATA: Lab findings show white count 11, hemoglobin 14, hematocrit is 44.9, platelets of 301. His chemistry; sodium 135, potassium is 4.1, chloride 93, bicarbonate 32, anion gap of 14, BUN is 28, creatinine is 1.1, glucose 296, and his calcium is 9.5. MICROBIOLOGY: None. IMAGING STUDIES: None. IMPRESSION: 1. Acute exacerbation of congestive heart failure with unknown dysfunction, possibly diastolic dysfunction. 2. History of chronic obstructive pulmonary disease. 3. Type 2 diabetes. 4. Hypertension. 5. Shortness of breath secondary to volume overload from congestive heart failure exacerbation. 6. Morbid obesity. PLAN: At this time, I am still waiting on Cardiology evaluation. A 2D echo was pending. He is on Bumex orally, which we will continue. He did qualify for home O2, which will be arranged by Case Management hopefully tomorrow. Pulmonary Critical Care is following as well. He will continue with steroids as per Pulmonary recommendations. His glucose is still elevated, but insulin was adjusted accordingly. Continue with Lovenox for DVT prophylaxis. Encourage ambulation. Heart healthy diet. MD HERMES Freeman/MODL /[id number]
[2019-02-06] MEDS: AZITHROMYCIN 500MG/NS 250 ML 250 ML IV SCH (13:53)
--- NOTE | 2019-02-06 16:02 | NUR ---
NOTIFIED DR. GUALLPA REGARDING BLOOD SUGAR 417. ORDER TO GIVE 26 UNITS ACCORDING TO SLIDING SCALE.
[2019-02-06] MEDS: ENOXAPARIN SOD INJ 40 MG/0.4 ML SYR SC SCH (17:09)
[2019-02-06] MEDS: FUROSEMIDE 40 MG TAB PO SCH (17:09)
[2019-02-06] MEDS: POTASSIUM CHLORIDE 20 MEQ TAB CR PO SCH (17:09)
--- NOTE | 2019-02-06 17:49 | Consultation ---
DATE OF CONSULTATION: 02/06/2019 Cardiology Consultation REASON FOR CONSULTATION: Worsening shortness of breath. HISTORY OF PRESENT ILLNESS: Mr. Mcqueen is a 53-year-old male, who reports he has a pertinent past medical history of heart failure, hypertension, COPD and sleep apnea. He reports that he sought emergency services due to worsening shortness of breath, fluid retention, inability to lie flat, and also bilateral lower extremity edema. He reports that he was diagnosed with congestive heart failure one year ago at [facility]. 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 He also is supposed to be utilizing oxygen at home and at night, however, he reports he has not been doing so. At this present time, he denies any chest pain, does endorse shortness of breath and anxiety and also bilateral lower extremity edema and fatigue. He denies any fever, chills, dizziness, syncope, or palpitations. REVIEW OF SYSTEMS: Negative except as mentioned above. PAST MEDICAL HISTORY: As stated above. ALLERGIES: TO LISINOPRIL RESULTING TO ANGIOEDEMA. PAST SURGICAL HISTORY: None reported. FAMILY HISTORY: Hypertension and diabetes. SOCIAL HISTORY: Denies any drug use, alcohol use and does not smoke. However, he does endorse that he has been exposed to secondhand smoke, hence his COPD. PHYSICAL EXAMINATION: VITAL SIGNS: Temperature 96.5, pulse 89, respiratory rate 20, blood pressure 134/80, and oxygen saturation 90% on 2.5 L nasal cannula. GENERAL: Alert and oriented x3, resting comfortably in bed, does not appear to be in any acute distress. NECK: Supple. No JVD noted. CARDIOVASCULAR: Regular rate and rhythm. Systolic murmur present. S4 noted. LUNGS: Diminished breath sounds throughout. No wheezing. No crackles noted. ABDOMEN: Rounded, soft, nontender. Normoactive bowel sounds. LOWER EXTREMITIES: 2+ nonpitting edema. CARDIOVASCULAR MEDICATIONS: Bumex 1 mg p.o. b.i.d., nifedipine 30 mg p.o. b.i.d., Coreg 12.5 mg p.o. b.i.d., losartan 20 mg p.o. h.s., and Lovenox 40 mg subcu daily. LABORATORY DATA: WBC 11.06, hemoglobin 14.4, hematocrit 44.9, platelets 301. Sodium 135, potassium 4.1, BUN 28, creatinine 1.11. IMPRESSION: 1. Acute on chronic diastolic heart failure. 2. Hypertension. 3. Chronic obstructive pulmonary disease. 4. Morbid obesity. RECOMMENDATIONS: Echocardiogram has been obtained. Ejection fraction noted to be 57% with normal diastolic filling patterns. Continue with the above-listed cardiac medication. Uptitrate diuretics. Plan for stress test tomorrow. N.p.o. midnight. We will continue to follow this patient very closely. Thank you for this consultation. Dictated by Princess Ramos NP Dagoberto Cheung MD JWV/SATHYA /[id number]
--- NOTE | 2019-02-06 17:54 | NUR ---
SPOKE WITH PATIENT REGARDING ORDER FOR STRESS TEST. PATIENT STATED THAT HE WAS GIVEN OPTION TO DO THE STRESS TEST OUTPATIENT AND WANTS TO DO IT OUTPATIENT. PLACED CALL TO HYDRAULICS TEACHER PREMA CABALLERO, ANSWERING SERVICE WAS UNAVAILABLE. WILL PASS ON MESSAGE TO MANAGER WIRELESS RN.
--- NOTE | 2019-02-06 20:10 | NUR ---
Report taken from morning rn.walking rounds done.aaox4.ambulates . cancelled stress test and npo status.on nasal canula o2 2litre.bed locked and in lowest position.phone and call light within reach.keep monitor the pt.
[2019-02-06] MEDS: ATORVASTATIN 20 MG TAB PO SCH (20:42)
[2019-02-06] MEDS ORDERED: INSULIN GLARGINE 100 UNITS/ML VIAL SQ SCH (21:00)
--- NOTE | 2019-02-06 22:17 | NUR ---
Report given to Charissa CANO.waking rounds done.stable condition.
--- NOTE | 2019-02-06 22:18 | NUR ---
RECEIVED REPORT. PATIENT AAOX4, NO NEEDS VOICED. CONDITION STABLE. FAMILY MEMBER AT BEDSIDE. WILL CONTINUE TO MONITOR. CALL LIGHT WITHIN REACH.
[2019-02-07 00:22] VITALS: BP 121/75
[2019-02-07] MEDS: ALBUTEROL/IPRATROPIUM 3 ML NEB NEB SCH ×4 (03:00→15:10)
[2019-02-07 04:00] VITALS: BP 126/78
[2019-02-07] MEDS: HYDROCODONE/APAP 10MG-325MG TAB PO PRN (05:44)
[2019-02-07 05:55] LABS: BASOPHILS % 0.2 % (0.0-1.0); EOSINOPHILS % 0.4 % (0.0-6.0); HEMOGLOBIN 14.1 g/dL (14.0-18.0); LYMPHOCYTES # (AUTO) 3.8 (1.0-3.2); LYMPHOCYTES % 36.6 % (18.0-39.1); MEAN CORPUSCULAR HEMOGLOBIN 28.7 pg (28-32); MEAN CORPUSCULAR HGB CONC 31.3 g/dL (31-35); MEAN CORPUSCULAR VOLUME 91.5 fL (81-99); MONOCYTES % 9.1 % (4.4-11.3); NEUTROPHILS # (AUTO) 5.6 (2.1-6.9); NEUTROPHILS % 53.4 % (38.7-80.0); PLATELET COUNT 265 x10e3/uL (140-360); RED BLOOD COUNT 4.92 x10e6/uL (4.3-5.7); RED CELL DISTRIBUTION WIDTH 13.2 % (11.7-14.4)
[2019-02-07 06:14] LABS: ANION GAP 15.2 mmol/L (8-16); BLOOD UREA NITROGEN 22 mg/dL (7-26); BUN/CREATININE RATIO 22 (6-25); CALCIUM 9.5 mg/dL (8.4-10.2); CARBON DIOXIDE 29 mmol/L (22-29); CHLORIDE 95 mmol/L (98-107); EST GLOMERULAR FILTRATION RATE > 60 ML/MIN (60-); GLUCOSE 181 mg/dL (74-118); POTASSIUM 4.2 mmol/L (3.5-5.1); SODIUM 135 mmol/L (136-145)
--- NOTE | 2019-02-07 07:00 | NUR ---
BEDSIDE ROUNDS COMPLETE NO DISTRESS NOTED,PT IN STABLE CONDITION UPDATED ON POC VOCIED UNDERSTANDING, R AC 20G NO SS OF INFILTRATION NOTED, NO OTHER CO VOICED CALL LIGHT IN REACH WILL CONTINUE TO MONITOR
[2019-02-07] MEDS: INSULIN REGULAR, HUMAN 100 UNIT/1 ML 3ML VIAL SQ SCH ×3 (07:30→16:30)
[2019-02-07 07:50] VITALS: BP 127/74
[2019-02-07 08:44] VITALS: BP 127/74
[2019-02-07] MEDS: FUROSEMIDE 40 MG TAB PO SCH ×2 (08:44→16:52)
[2019-02-07] MEDS: NIFEDIPINE CR 30 MG TAB PO SCH ×2 (08:44→16:52)
[2019-02-07] MEDS: THEOPHYLLINE 200 MG TABCR PO SCH (08:44)
[2019-02-07] MEDS: CARVEDILOL 12.5 MG TAB PO SCH ×2 (08:44→16:51)
[2019-02-07] MEDS: HYDRALAZINE HCL 25 MG TAB PO SCH ×2 (08:44→16:51)
[2019-02-07] MEDS: POTASSIUM CHLORIDE 20 MEQ TAB CR PO SCH (08:44)
[2019-02-07] MEDS: METHYLPREDNISOLONE SOD SUCC 40 MG/ML VIAL 1ML IV SCH (08:44)
[2019-02-07] MEDS: BUSPIRONE HCL 5 MG TAB PO SCH ×2 (08:45→16:51)
[2019-02-07] MEDS: MUPIROCIN 2% OINT 22 GM TUBE TOP SCH ×2 (09:00→16:52)
--- NOTE | 2019-02-07 09:21 | NUR ---
JUAN MANUEL SPOKE TO RT RACHEL REGARDING HOME O2 EVAL FOR PATIENT. PATIENT PENDING HOME O2 EVAL RESULTS TO INITIATE HOME O2 EVAL. RACHEL TO DO HOME O2 EVAL THIS AM SO CLINICAL CAN BE SENT TO [facility] THIS AM AND O2 CAN BE DELIVERED THIS AFTERNOON. JUAN MANUEL SPOKE TO JENI GIBSON WITH [facility]. SOON HE GETS CLINICAL, HE CAN DELIVER HOME O2 TO BEDSIDE FOR DISCHARGE.
--- NOTE | 2019-02-07 10:35 | NUR ---
CW RECEIVED CHOICE FOR [facility] FOR HOME O2 ON 02/06. CHOICE LETTER IN FRONT IN CHART. HOME O2 EVAL COMPLETED 02/07. CM SENT CLINICAL TO [facility] 02/07. PENDING AUTH AND DELIVERY TO BEDSIDE FOR DISCHARGE. [facility] (P) [phone] (F) [phone] LIAISON: ARTHUR
[2019-02-07 12:57] VITALS: BP 132/74
[2019-02-07] MEDS: AZITHROMYCIN 500MG/NS 250 ML 250 ML IV SCH (14:08)
--- NOTE | 2019-02-07 16:03 | Progress Note ---
DATE: 02/07/2019 Pulmonary Progress Note SUBJECTIVE: The patient feels better. He had elevated blood sugar. He is still on oxygen. PHYSICAL EXAMINATION: VITAL SIGNS: The patient is afebrile. The vital signs are stable. HEENT: Shows no facial swelling or erythema. CARDIAC: Reveals regular rate and rhythm with normal S1 and S2. PULMONARY: Auscultation of lungs reveal clear breath sounds bilaterally. There is no wheezing. ABDOMEN: Soft and nontender. There is no rebound or guarding. EXTREMITIES: Show no leg edema or calf tenderness. IMPRESSION: 1. Asthma with acute exacerbation. 2. Obesity hypoventilation syndrome. 3. Obstructive sleep apnea. 4. Hypertension. 5. Diabetes. PLAN: 1. The patient will be discharged home. 2. He will continue his prior inhaler regimen. 3. The patient will be evaluated for biological therapy as an outpatient with a RAST panel and eosinophil count. Jhoan Lott MD [facility]/SATHYA /[id number]
[2019-02-07 16:24] VITALS: BP 146/99
--- NOTE | 2019-02-07 16:30 | NUR ---
spoke with dr hernandez, informed of pt blood sugar 337 and coverage given of 20u of regular insulin per sliding scale, oxygen delivered to bedside pt and instructed on usage. informed this nurse ok for patient to dc home after dinner
[2019-02-07] MEDS: ENOXAPARIN SOD INJ 40 MG/0.4 ML SYR SC SCH (16:52)
[2019-02-07] MEDS ORDERED: BUMETANIDE1 MG PO (17:19)
[2019-02-07] MEDS ORDERED: ALDACTONE25 MG PO (17:20)
[2019-02-07] MEDS ORDERED: LEVEMIR100 UNIT/1 SQ (17:21)
[2019-02-07] MEDS ORDERED: HUMALOG100 UNIT/3 SQ (17:22)
--- NOTE | 2019-02-07 17:30 | NUR ---
PT EDUCATED AND DEMONSTRATION RETURNED ON HOW TO ADMINISTER SELF INSULIN SHOTS, AND CHECK BLOOD GLUCOSE. PT GIVEN EDUCATION ON DIABETES AND DIET VOICED UNDERSTANDING. ALL QUESTIONS AND CONCERNS ANSWERED
--- NOTE | 2019-02-07 20:40 | Discharge Summary ---
FINAL DISCHARGE DIAGNOSES: 1. Acute exacerbation of congestive heart failure with diastolic dysfunction. 2. Asthma exacerbation. 3. Hypertension. 4. Morbid obesity. 5. Uncontrolled type 2 diabetes. 6. Acute on chronic bronchitis. CONSULTANTS: Pulmonary and Cardiology. VITAL SIGNS: Temperature 97.6, pulse 77, respiratory rate is 20, blood pressure 132/74, pulse ox 99% on 2.5 L of oxygen nasal cannula. LABORATORY DATA: White count 10.4, hemoglobin 14, hematocrit is 45, platelets of 265. Chemistry; sodium 135, potassium 4.2, chloride 95, bicarb 29, anion gap of 15, BUN is 22, creatinine is 1, glucose is 181, calcium 9.5. Total bilirubin is 0.3, AST 15, ALT 14. Troponins are negative x3. Albumin 3.7. MICROBIOLOGY: None. IMAGING STUDIES: Chest x-ray shows low lung volumes with poor visualization of the left diaphragm suggestive of subsegmental atelectasis. HOSPITAL COURSE: This is a 53-year-old male, morbidly obese with known history of COPD, also obstructive sleep apnea, type 2 diabetes, uncontrolled hypertension, also known history of heart failure, comes into the ED with complaints of shortness of breath and underlying edema. The patient was also being treated for underlying acute on chronic bronchitis as well as asthma exacerbation. Pulmonary was consulted for further management and care. The patient was on steroids, neb treatments, and antibiotics. The patient's symptoms improved tremendously. From his respiratory standpoint, he did qualify for home O2, which was arranged for home. He was advised to follow up with the lung doctor sometime this month and according to the is March 04, 2019. The patient also was being treated for acute exacerbation of CHF with diastolic dysfunction. He was given IV diuretics with much improvement too. A 2D echo consistent with diastolic dysfunction with an EF of 57%. The patient did well with IV diuretics. Diet modification as well was performed while he was here in the hospital stay. His blood pressure was extremely elevated while here in the hospital and which the medications were adjusted accordingly. He was also found to have an A1c of 12, when he was started on long-acting insulin as well as premeal insulin. He is educated on how to give himself the insulin injections by the nursing staff. While here, Cardiology recommended cardiac stress test, but the patient refused and he wants to do as an outpatient. The patient was cleared for discharge by Pulmonary and Cardiology for discharge home. He is currently doing well at baseline with no other issues prior to being discharged home. On the day of discharge, vital signs were stable. Labs reviewed and stable. The patient is seen and evaluated, examined thoroughly on the day of discharge. No other complaints. The patient verbalized understanding and agrees to plan of care to follow up as an outpatient with the primary care physician in 1 week, electric truck operator and 2 weeks' time for cardiac stress test and Pulmonary on March 04, 2019, for followup appointment. MEDICATIONS: See med reconciliation form includin. Levemir FlexPen 12 units subcu at bedtime only, one month supply. 2. Humalog 8 units subcu t.i.d. with meals. He was also given a glucose meter for home. 3. Lipitor 20 mg daily. 4. Losartan 25 mg daily. 5. Coreg 12.5 mg p.o. b.i.d. 6. Nifedipine XL 30 mg one tab daily. 7. Bumex 1 mg p.o. b.i.d. 8. Aldactone 12.5 mg daily. He was also sent home on: 1. Azithromycin 250 mg daily for 5 more days. 2. Theophylline 200 mg daily. 3. Ramin-24, 400 mg daily. 4. Acetylcysteine 600 mg p.o. b.i.d. 5. Prednisone 10 mg daily. DISPOSITION: Home. CONDITION: Stable. DIET: Heart healthy. In the event of any worsening symptoms, the patient advised to come back to the ED for further evaluation. Discharge summary took greater than 35 minutes. Once again, the patient was educated on followup with the electric truck operator, mattress specialist and primary care physician as described above. MD HERMES Freeman/SATHYA /[id number]
== END 2019-02-07 17:52 | disposition home or self-care (01) | DRG 292 ==
LOC: ER 00:17 → ERHOLD 02:53 → IMCU 03:47 → ERHOLD 04:15 → MED/SURG 18:07 → OBSVTOIN 02-05 15:19
PROVIDERS: ADMIT Internal Medicine; ATTEND Internal Medicine
DX: I11.0 Hypertensive heart disease with heart failure (principal); E66.2 Morbid (severe) obesity with alveolar hypoventilation; J45.901 Unspecified asthma with (acute) exacerbation; J44.0 Chronic obstructive pulmonary disease with (acute) lower respiratory infection; I50.33 Acute on chronic diastolic (congestive) heart failure; Z68.39 Body mass index [BMI] 39.0-39.9, adult; G47.33 Obstructive sleep apnea (adult) (pediatric); Z99.81 Dependence on supplemental oxygen; I25.10 Atherosclerotic heart disease of native coronary artery without angina pectoris; E11.65 Type 2 diabetes mellitus with hyperglycemia; F32.9 Major depressive disorder, single episode, unspecified; J20.9 Acute bronchitis, unspecified; Z77.22 Contact with and (suspected) exposure to environmental tobacco smoke (acute) (chronic); T50.1X6A Underdosing of loop [high-ceiling] diuretics, initial encounter; Z91.138 Patient's unintentional underdosing of medication regimen for other reason; Z79.4 Long term (current) use of insulin; Z79.52 Long term (current) use of systemic steroids; Z88.8 Allergy status to other drugs, medicaments and biological substances
CPT/HCPCS: 36415; 71045; 80048; 80053; 82550; 82553; 82805; 82948; 83036; 83880; 84484; 85025; 93005; 93306; 94640; 94660; 96374; 96375; 99284; G0378; J0456; J1650; J1815; J1817; J1940; J2270; J2405; J2920; J2930

== ENCOUNTER 2019-02-28 09:20 | Emergency (ER) | payer MEDICARE ==
[~2019-02-28] VITALS: Ht 180.3 cm; Wt 127.0 kg
[~2019-02-28 09:20] MED LIST changes: +ALDACTONE25 MG PO; +BUMETANIDE1 MG PO; +HUMALOG100 UNIT/3 SQ; +LEVEMIR100 UNIT/1 SQ; +NAC600 MG PO; +THEO-24400 MG PO; +THEOPHYLLINE A200 MG PO; +ZITHROMAX250 MG PO
[2019-02-28] MEDS ORDERED: ASPIRIN 81 MG CHEW TAB PO ONE (10:00)
[2019-02-28 10:03] LABS: BASOPHILS % 0.3 % (0.0-1.0); EOSINOPHILS # (AUTO) 0.1 (0.0-0.4); EOSINOPHILS % 1.7 % (0.0-6.0); HEMATOCRIT 43.6 % (38.2-49.6); HEMOGLOBIN 13.8 g/dL (14.0-18.0); LYMPHOCYTES # (AUTO) 2.4 (1.0-3.2); LYMPHOCYTES % 36.4 % (18.0-39.1); MEAN CORPUSCULAR HEMOGLOBIN 29.2 pg (28-32); MEAN CORPUSCULAR HGB CONC 31.7 g/dL (31-35); MEAN CORPUSCULAR VOLUME 92.4 fL (81-99); MONOCYTES # (AUTO) 0.5 (0.2-0.8); MONOCYTES % 7.6 % (4.4-11.3); NEUTROPHILS # (AUTO) 3.5 (2.1-6.9); NEUTROPHILS % 53.8 % (38.7-80.0); PLATELET COUNT 286 x10e3/uL (140-360); RED BLOOD COUNT 4.72 x10e6/uL (4.3-5.7); RED CELL DISTRIBUTION WIDTH 13.4 % (11.7-14.4)
[2019-02-28 10:24] LABS: INR 0.92; PROTHROMBIN TIME 12.9 seconds (11.9-14.5)
[2019-02-28 10:25] LABS: PARTIAL THROMBOPLASTIN TIME 30.5 seconds (23.8-35.5)
--- NOTE | 2019-02-28 10:29 | Diagnostic Imaging Report ---
EXAMINATION: CHEST SINGLE (PORTABLE) INDICATION: Chest pain COMPARISON: Chest radiograph of 02/04/2019 FINDINGS: Images limited by portable technique, underpenetration, and patient body habitus. TUBES and LINES: EKG leads overlie the chest. LUNGS: The lung volumes are low. No focal consolidation or pulmonary edema. Mild subsegmental atelectasis at the left lung base. PLEURA: No pleural effusion or pneumothorax. HEART AND MEDIASTINUM: The cardiomediastinal silhouette is unchanged in size and contour. BONES AND SOFT TISSUES: No acute fracture or dislocation. UPPER ABDOMEN: No free air under the diaphragm. IMPRESSION: Low lung volumes. No focal consolidation or pulmonary edema. Signed by: Izzy Gonsalez MD on 02/28/2019 10:25 AM
[2019-02-28 10:30] LABS: ALANINE AMINOTRANSFERASE 14 IU/L (0-55); ALBUMIN 3.6 g/dL (3.5-5.0); ALBUMIN/GLOBULIN RATIO 1.1 (0.8-2.0); ALKALINE PHOSPHATASE 57 IU/L (40-150); ANION GAP 14.2 mmol/L (8-16); BLOOD UREA NITROGEN 16 mg/dL (7-26); BUN/CREATININE RATIO 16 (6-25); CALCIUM 9.3 mg/dL (8.4-10.2); CARBON DIOXIDE 29 mmol/L (22-29); CHLORIDE 95 mmol/L (98-107); CREATINE KINASE 178 IU/L (30-200); CREATININE, SERUM 1.03 mg/dL (0.72-1.25); EST GLOMERULAR FILTRATION RATE > 60 ML/MIN (60-); GLUCOSE 332 mg/dL (74-118); POTASSIUM 4.2 mmol/L (3.5-5.1); SODIUM 134 mmol/L (136-145)
[2019-02-28] MEDS ORDERED: ASPIRIN81 MG PO (11:09)
== END 2019-02-28 11:51 | disposition home or self-care (01) ==
LOC: ER 09:20
DX: R07.89 Other chest pain (principal); I10 Essential (primary) hypertension; E11.9 Type 2 diabetes mellitus without complications; I50.9 Heart failure, unspecified; F41.9 Anxiety disorder, unspecified
CPT/HCPCS: 36415; 71045; 80053; 82550; 82553; 83880; 84484; 85025; 85610; 85730; 93005; 99284

== ENCOUNTER → 2019-04-15 | Outpatient (CLI) | payer MEDICARE ==
[~2019-04-15] MED LIST changes: +ALBUTEROL SULF 0.083% NEB SOLN 3 ML NEB ONE; +ASPIRIN81 MG PO
--- NOTE | 2019-04-20 11:52 | Pulmonary Function Test ---
DATE OF STUDY: 04/15/2019 REFERRING PHYSICIAN: SPIROMETRY: Spirometry demonstrates evidence of hxvuxbde-vm-fopkzk restriction. FEV1 was 1.83 L or 53% predicted and FVC was 2.42 L or 56% predicted in the setting of normal FEV1/FVC ratio. After bronchodilator administration, there was a mild 11%, but not statistically significant change in FVC after albuterol administration. Lung volumes attempted with nitrogen washout method twice, but with poor reliability due to leakage. DIFFUSION CAPACITY: Diffusion capacity when adjusted for alveolar volume was severely low at 11.45 mL/mmHg/minute or 32.8% predicted. SUMMARY: Qurllnbh-wb-uunqfr restriction, severe diffusion impairment. The is most often seen in alveolar interstitial lung disease. Clinical correlation is recommended noting that the diffusion may be unreliable here. The patient had difficulty performing lung volumes, diffusion capacity, and could not do 6-minute walk due to back injury. MD ALBANIA Alansi/MODL /[id number] MTDD
== END ==
LOC: RESP 12:42
PROVIDERS: ATTEND Internal Medicine Critical Care Medicine
DX: J96.10 Chronic respiratory failure, unspecified whether with hypoxia or hypercapnia (principal); J45.909 Unspecified asthma, uncomplicated; I10 Essential (primary) hypertension; E66.9 Obesity, unspecified; E66.2 Morbid (severe) obesity with alveolar hypoventilation
CPT/HCPCS: 94060; 94640; 94727; 94729

== ENCOUNTER 2019-05-03 04:00 | Inpatient (IN) | payer MEDICARE ==
[~2019-05-03] VITALS: Ht 180.3 cm; Wt 137.9 kg
[2019-05-03] VITALS (16 sets, daily range): BP systolic 125–179; BP diastolic 79–123
[~2019-05-03 04:00] MED LIST changes: -ALBUTEROL SULF 0.083% NEB SOLN 3 ML NEB ONE
--- NOTE | 2019-05-03 04:20 | NUR ---
RT NOTIFIED AND AWARE STAT DUONEB TX.
--- NOTE | 2019-05-03 04:21 | NUR ---
RT NOTIFIED AND AWARE OF STAT BIPAP PLACEMENT ON PT.
[2019-05-03 04:41] LABS: BASOPHILS % 0.2 % (0.0-1.0); EOSINOPHILS # (AUTO) 0.1 (0.0-0.4); EOSINOPHILS % 1.3 % (0.0-6.0); LYMPHOCYTES # (AUTO) 3.2 (1.0-3.2); LYMPHOCYTES % 37.5 % (18.0-39.1); MEAN CORPUSCULAR HEMOGLOBIN 29.1 pg (28-32); MEAN CORPUSCULAR HGB CONC 30.2 g/dL (31-35); MEAN CORPUSCULAR VOLUME 96.4 fL (81-99); MONOCYTES # (AUTO) 0.7 (0.2-0.8); NEUTROPHILS # (AUTO) 4.6 (2.1-6.9); NEUTROPHILS % 52.8 % (38.7-80.0); PLATELET COUNT 260 x10e3/uL (140-360); RED BLOOD COUNT 4.46 x10e6/uL (4.3-5.7); RED CELL DISTRIBUTION WIDTH 13.2 % (11.7-14.4)
[2019-05-03] MEDS ORDERED: ALBUTEROL/IPRATROPIUM 3 ML NEB NEB ONE (04:45)
[2019-05-03 04:55] LABS: INR 0.87; PROTHROMBIN TIME 12.3 seconds (11.9-14.5)
[2019-05-03 04:56] LABS: PARTIAL THROMBOPLASTIN TIME 29.7 seconds (23.8-35.5)
[2019-05-03] MEDS ORDERED: NITROGLYCERIN 2% OINT 1 GM PKT ONE (04:59)
--- NOTE | 2019-05-03 05:00 | NUR ---
RESPIRATORY CALLED AND NOTIFIED OF STAT ABG
[2019-05-03 05:05] LABS: ALANINE AMINOTRANSFERASE 26 IU/L (0-55); ALBUMIN 3.9 g/dL (3.5-5.0); ALBUMIN/GLOBULIN RATIO 1.1 (0.8-2.0); ALKALINE PHOSPHATASE 66 IU/L (40-150); BLOOD UREA NITROGEN 19 mg/dL (7-26); BUN/CREATININE RATIO 19 (6-25); CALCIUM 9.9 mg/dL (8.4-10.2); CARBON DIOXIDE 34 mmol/L (22-29); CHLORIDE 96 mmol/L (98-107); CREATINE KINASE 140 IU/L (30-200); EST GLOMERULAR FILTRATION RATE > 60 ML/MIN (60-); GLUCOSE 168 mg/dL (74-118); SODIUM 139 mmol/L (136-145)
[2019-05-03] MEDS ORDERED: NITROGLYCERIN 2% OINT 1 GM PKT TOP ONE (05:15)
--- NOTE | 2019-05-03 05:35 | NUR ---
CALLED AND SPOKE WITH ROBIN WITH RESPIRATORY AGAIN FOR STAT ABG ORDER;
--- NOTE | 2019-05-03 05:43 | NUR ---
RESPIRATORY AT BEDSIDE FOR ABG
--- NOTE | 2019-05-03 05:48 | Diagnostic Imaging Report ---
EXAMINATION: CHEST SINGLE (PORTABLE) INDICATION: ^CHEST PAIN ^[id number] ^0430 ^Y COMPARISON: 02/28/2019 FINDINGS: AP view TUBES and LINES: None. LUNGS: Limited by body habitus and low lung volumes. Mild left mid to lower lung field and right lower lung field opacities. PLEURA: No pleural effusion or pneumothorax. HEART AND MEDIASTINUM: The cardiomediastinal silhouette is unremarkable. BONES AND SOFT TISSUES: No acute osseous lesion. Soft tissues are unremarkable. UPPER ABDOMEN: No free air under the diaphragm. IMPRESSION: Limited as above. Mild bilateral lower lung field opacities, representing atelectasis and/or developing pneumonia in the appropriate clinical context. Signed by: Dr. Vinod Copeland MD on 05/03/2019 5:44 AM
[2019-05-03 06:17] LABS: ABG PH 7.29 (7.31-7.41)
[2019-05-03 06:18] LABS: ABG HCO3 38 mmol/L (23-28); ABG PCO2 80 mmHg (41-51); ABG PO2 80 mmHg (80-105)
[2019-05-03] MEDS ORDERED: AZITHROMYCIN 250 MG TAB PO SCH (06:30)
[2019-05-03] MEDS ORDERED: ASPIRIN 81 MG CHEW TAB PO ONE (06:30)
--- NOTE | 2019-05-03 07:14 | NUR ---
respiratory notified of rpt ABG at 0730
[2019-05-03 07:52] LABS: BILIRUBIN,URINE NEGATIVE (NEGATIVE); CLARITY,URINE CLEAR (CLEAR); COLOR,URINE YELLOW (YELLOW); KETONES,URINE NEGATIVE (NEGATIVE); LEUKOCYTE ESTERASE ,URINE NEGATIVE (NEGATIVE); NITRITE,URINE NEGATIVE (NEGATIVE); PROTEIN,URINE DIPSTICK 2+ (NEGATIVE); URINE UROBILINOGEN 0.2 mg/dL (0.2 - 1)
[2019-05-03 07:58] LABS: AMPHETAMINES SCREEN,URINE NEGATIVE (NEGATIVE); BENZODIAZEPINES SCREEN,URINE POSITIVE (NEGATIVE); PHENCYCLIDINE SCREEN,URINE NEGATIVE (NEGATIVE)
[2019-05-03 08:17] LABS: ABG PCO2 78 mmHg (41-51); ABG PH 7.29 (7.31-7.41); ABG PO2 103 mmHg (80-105)
[2019-05-03 08:18] LABS: ABG HCO3 38 mmol/L (23-28)
[2019-05-03 08:23] LABS: BACTERIA,URINE FEW /HPF; EPITHELIAL CELLS,URINE FEW /LPF; RBC,URINE 0-5 /HPF (0-5)
[2019-05-03] MEDS: AZITHROMYCIN 500MG/NS 250 ML 250 ML IV SCH (09:04)
[2019-05-03] MEDS ORDERED: ALBUTEROL SULFATE HFA 8GM INHALATION AEROSOL INH PRN ×2 (09:45→10:00)
[2019-05-03] MEDS: CARVEDILOL 12.5 MG TAB PO SCH ×2 (10:11→18:34)
[2019-05-03] MEDS: BUMETANIDE 1 MG TAB PO SCH (10:11)
[2019-05-03] MEDS: ZOLPIDEM TARTRATE 10 MG TAB PO SCH ×2 (10:12→21:27)
[2019-05-03] MEDS: NIFEDIPINE CR 30 MG TAB PO SCH (10:17)
[2019-05-03] MEDS: HYDROCODONE/APAP 10MG-325MG TAB PO PRN ×2 (10:41→20:13)
--- NOTE | 2019-05-03 11:00 | NUR ---
Dr Norris notified of consult.
[2019-05-03] MEDS: INSULIN LISPRO 100 UNIT/1 ML 3ML VIAL SQ SCH ×3 (11:30→21:25)
[2019-05-03 11:50] LABS: CREATINE KINASE MB 3.8 ng/mL (0-5.0)
[2019-05-03] MEDS ORDERED: INSULIN LISPRO 100 UNIT/1 ML 3ML VIAL SQ SCH (12:00)
[2019-05-03] MEDS: ALBUTEROL/IPRATROPIUM 3 ML NEB NEB SCH ×4 (12:00→22:05)
[2019-05-03] MEDS ORDERED: BUSPIRONE HCL 5 MG TAB PO PRN (13:30)
[2019-05-03] MEDS: METHYLPREDNISOLONE SOD SUCC 125 MG/2ML VIAL IV SCH ×2 (13:54→21:27)
[2019-05-03] MEDS: CEFTRIAXONE SOD 2 GM/NS 100 ML 100 ML IV SCH (14:59)
[2019-05-03] MEDS: LORAZEPAM 0.5 MG TAB PO PRN (15:05)
--- NOTE | 2019-05-03 15:16 | History and Physical ---
HISTORY OF PRESENT ILLNESS: The patient is a 53-year-old male with past medical history positive for hypertension, questionable COPD, hypercholesterolemia, diabetes mellitus, still complaining of chest pain and shortness of breath. The patient was admitted to the hospital. REVIEW OF SYSTEMS: CARDIOVASCULAR: He had one episode of chest pain after taking prednisone, described it as a tightness in the middle of the chest with no radiation. RESPIRATORY: He did have shortness of breath and cough. GASTROINTESTINAL: No nausea, vomiting, or diarrhea. GENITOURINARY: No urinary frequency. No dysuria. PAST MEDICAL HISTORY: Hypertension, diabetes, questionable COPD. PHYSICAL EXAMINATION: VITAL SIGNS: We had a blood pressure of 142/102, heart rate 85 per minute, respiratory rate 18 per minute, oxygen saturation 100%. HEART: Showed regular rhythm. Normal S1, S2 sound. LUNGS: Clear bilaterally. ABDOMEN: Soft. EXTREMITIES: Show no evidence of cyanosis or hematoma. LABORATORY DATA: On the CMP; we have sodium 139, potassium 4.0, chloride 96, CO2 34, BUN 19, creatinine 1.0, glucose 168, calcium 9.9, total bilirubin 0.5, AST 24, ALT 26, alkaline phosphatase 66. Creatine kinase 140, CK-MB negative. Troponin x2 is negative. Total protein 7.6, albumin 3.9, globulin 3.7. Toxicology showed the patient has positive test for opiates and benzodiazepine. PT 12.3, INR 0.87, PTT 29.7. Urinalysis came back with no evidence of any leukocytes. Chest x-ray was done also show evidence of bilateral lower lung opacities reflecting atelectasis and/or developing pneumonia in the appropriate clinical context. FINAL DIAGNOSES: 1. Chest pain. 2. Hypercapnic respiratory failure. 3. Morbid obesity. 4. Bilateral pneumonia. PLAN OF TREATMENT: We are going to continue with albuterol and Atrovent q.4 hours, Zithromax 250 mg IV once a day. Continue Solu-Medrol 60 mg IV q.8 hours. Continue bumetanide 1 mg daily, albuterol q.4 hours, nifedipine 30 mg in the morning, theophylline 200 mg twice a day, Lipitor 20 mg daily, Claritin 10 mg daily, Ambien 10 mg at bedtime, [place] 1 tablet q.8 hours as needed for severe pain, aspirin 81 mg daily, Aldactone 12.5 mg daily. Continue with Lantus 12 units at bedtime. Monitor blood sugar before meals and at bedtime. Carvedilol 12.5 mg twice a day, Humalog 8 units before each meal. We are going to consult Dr. Rivera for Pulmonary, Dr. Kathi Norris for Cardiology. The patient will be admitted to intensive care unit. Time spent around 45 minutes. I am going to order also an EKG and echocardiogram. MD MIAH Nesbitt/SATHYA /[id number]
--- NOTE | 2019-05-03 18:12 | Consultation ---
DATE OF CONSULTATION: 05/03/2019 Cardiac Consultation. REASON FOR CONSULTATION: Respiratory distress. HISTORY OF PRESENT ILLNESS: A 53-year-old gentleman, who is very well known to me seen and evaluated several times in the past. He is morbidly obese, hypertensive, chronic lung disease, was known to be hypercapnic CO2 retainer on CPAP at home. There is probably history of diastolic CHF with his severe hypertension. In fact, the patient does not have coronary artery disease. As per his he had a cardiac catheterization done last year, which showed normal coronary. Regardless, the patient does have severe exacerbation of his shortness of breath. He is on appropriate medication. He came here because he cannot breathe. He was in severe respiratory distress. He is almost at verge of to be intubated. He was given breathing treatment, diuretics, and he felt better. He is admitted for further management. Of note, on more than one occasion it documented pCO2 of 80 on him. His BNP at this admission is 223. His cardiac enzymes are normal. The patient does have easy fatigability and shortness of breath on minimal activity. He does have oxygen at home as well as CPAP. He is followed in Dr. Rivera's clinic. REVIEW OF SYSTEMS: Extensive to all systems, will be summarized for clarity. GENERAL: No fever, no chills. No recent upper respiratory tract infection. HEENT: Repeated congestion. PULMONARY: Easy fatigability, shortness of breath and cough. CARDIAC: No angina, orthopnea, cough, and possible paroxysmal nocturnal dyspnea, swelling of the lower extremities at time. GI: Poor appetite at time with severe shortness of breath. No hematemesis, no melena. : No hematuria, no dysuria. MUSCULOSKELETAL: No aches, no pain. SOCIAL HISTORY: He is . He is nonsmoker and non-alcohol drinker. HOME MEDICATIONS: Include Lipitor 20 mg a day, nifedipine 30 mg a day, carvedilol 12.5 mg twice a day, Bumex 1 mg a day, Aldactone 12.5 mg a day, aspirin 81 mg a day, inhalers theophylline 200 mg twice a day, loratadine 10 mg a day and insulin. ALLERGIES: LISINOPRIL. PAST MEDICAL HISTORY: 1. Advanced lung disease known with hypercapnic CO2 retainer. 2. Morbid obesity. 3. Hypoventilation. 4. Diabetes mellitus. 5. Hypertension. 6. Past history of depression. FAMILY HISTORY: Positive for diabetes mellitus and hypertension. PHYSICAL EXAMINATION: GENERAL: Morbidly obese gentleman. VITAL SIGNS: Height of 5 feet 11 inches, weight of 208 pounds. Blood pressure 140/80, heart rate of 80, respiratory rate of 18. HEENT: Pupils are reactive. NECK: No elevation of jugular venous pulsation. CHEST: Decreased lung expansion. HEART: Unable to palpate the apex. Normal first and second heart sound. ABDOMEN: Soft. There is no organomegaly. EXTREMITIES: No cyanosis, no clubbing, no edema. NEUROLOGIC: Nonfocal. LABORATORY DATA: BNP of only 223. Cardiac enzymes are normal. Sodium of 139, potassium of 4, BUN of 19, creatinine of 1.0, glucose of 168. White blood cell count of 8.6, hemoglobin of 13, hematocrit 43%, platelet count of 260,000. EKG normal sinus rhythm, nonspecific ST changes. Chest x-ray by report showing hyperinflated lung with atelectatic changes and opacities. IMPRESSION: 1. Exacerbation of COPD. 2. Hypercapnic respiratory failure. 3. Diabetes mellitus. 4. Hypertension. 5. Diastolic congestive heart failure. 6. Morbid obesity. Cardiac almeida, the patient is on appropriate cardiac medication with calcium channel stan, Coreg, Lipitor, aspirin, and diuretics. Supportive care to be done. Case discussed with the patient and his and discussed with nursing staff and Dr. Coopers. MD BEULAH Rodríguez/MODL /[id number]
[2019-05-03] MEDS: THEOPHYLLINE 200 MG TABCR PO SCH (18:35)
--- NOTE | 2019-05-03 19:52 | Consultation ---
DATE OF CONSULTATION: 05/03/2019 Pulmonary Medicine Consult REASON FOR REFERRAL: Respiratory failure. HISTORY OF PRESENT ILLNESS: Mr. Mcqueen is a pleasant 53-year-old gentleman, well known to me with respiratory failure. The patient known to have baseline obesity hypoventilation syndrome. On April 15, 2019, his PFTs demonstrate FEV1 of 1.83 L or 53% predicted, FVC 2.42 L or 56% predicted with 11% bronchodilator response, normal FEV1 over FVC ratio. Diffusion capacity was very limited due to technique. The patient has been on prednisone every other day for his chronic lung condition. The patient with worsening shortness of breath. Onset was for 1 day prior to admission. He has chest tightness. He was getting tachypneic. He came to the emergency room due to worsening impairment. In the emergency room, labs were nonspecific. Chest x-ray with low lung volumes, carotid markings suggestive of atelectasis versus pneumonia. Shows a [id number] amount of findings. Due to the significant shortness of breath, he was placed on BiPAP and sent to the ICU and hospitalized. PAST MEDICAL HISTORY: Hypertension, diabetes, probable nonallergic asthma, obesity hypoventilation, obstructive sleep apnea, knee and ankle surgery. MEDICATIONS: Medication list reviewed per the chart record. ALLERGIES: LISINOPRIL, . SOCIAL HISTORY: No drinking. No drugs. No smoking. FAMILY HISTORY: Noncontributory to this. REVIEW OF SYSTEMS: GENERAL: No weight changes. OPHTHALMOLOGIC: No double vision. ENT: No thyroid condition. LUNGS: No hemoptysis. CARDIAC: No heart attack. GI: No diarrhea. : No kidney surgeries. MUSCULOSKELETAL: Moderate arthritis. NEUROLOGIC: No seizures. DERMATOLOGIC: No cuts. OBJECTIVE: VITAL SIGNS: Noted, reviewed per the chart record. Now more stable breathing. He is off BiPAP. HEENT: Normocephalic and atraumatic. NECK: Supple. Throat midline. LUNGS: Bilateral air entry is decreased, no wheezes. CARDIOVASCULAR: S1, S2. No murmurs, rubs, or gallops. ABDOMEN: Soft and nontender. EXTREMITIES: No clubbing. No cyanosis. There is only trace edema to legs. INTEGUMENT: No rash. No purpura. LABORATORY DATA: 4.0 potassium, 19 BUN, creatinine 1.0. White blood count 9, 43 hematocrit, platelets 260. June 2018, IgG level 6, rheumatoid factor negative, JAZMIN negative, complement screening unremarkable, normal mostly. IMPRESSION: 1. Acute respiratory failure, status post BiPAP salvage. 2. Acute on chronic bronchitis. 3. Nonallergic asthma with exacerbation on April 09. 4. Obesity hypoventilation syndrome. 5. Obstructive sleep apnea. 6. Hypertension. 7. Diabetes. 8. Chronic prednisone maintenance every other day. Continue steroids for now. Wean him towards 10 every other day. The patient will continue bronchodilators. Continue weaning BiPAP during wakefulness, but definitely given BiPAP for sleep apnea while he is inpatient. Mobilize the patient as tolerated. The patient should continue all other respiratory medicines such as theophylline. We will follow along closely. Empiric antibiotics for this possibility of pneumonia per x-ray. We wish to order two-view chest x-ray . Thank you very much, Dr. Sapp, for allowing me a chance to participate in the care of Mr. Mcqueen. Please call for questions. MD ALBANIA Alanis/MODPenny /[id number]
[2019-05-03] MEDS ORDERED: ATORVASTATIN 20 MG TAB PO SCH (21:00)
[2019-05-03] MEDS: INSULIN GLARGINE 100 UNITS/ML VIAL SQ SCH (21:25)
[2019-05-04] VITALS (18 sets, daily range): BP systolic 116–166; BP diastolic 67–109
[2019-05-04] MEDS: ALBUTEROL/IPRATROPIUM 3 ML NEB NEB SCH ×6 (02:13→23:00)
[2019-05-04 05:44] LABS: BASOPHILS % 0.1 % (0.0-1.0); EOSINOPHILS # (AUTO) 0.1 (0.0-0.4); EOSINOPHILS % 1.8 % (0.0-6.0); HEMOGLOBIN 12.6 g/dL (14.0-18.0); LYMPHOCYTES # (AUTO) 1.6 (1.0-3.2); LYMPHOCYTES % 20.7 % (18.0-39.1); MEAN CORPUSCULAR HGB CONC 30.7 g/dL (31-35); MEAN CORPUSCULAR VOLUME 94.5 fL (81-99); MONOCYTES # (AUTO) 0.2 (0.2-0.8); NEUTROPHILS # (AUTO) 5.7 (2.1-6.9); PLATELET COUNT 258 x10e3/uL (140-360); RED BLOOD COUNT 4.34 x10e6/uL (4.3-5.7); RED CELL DISTRIBUTION WIDTH 12.9 % (11.7-14.4)
[2019-05-04 06:06] LABS: ANION GAP 13.2 mmol/L (8-16); BLOOD UREA NITROGEN 18 mg/dL (7-26); BUN/CREATININE RATIO 20 (6-25); CARBON DIOXIDE 34 mmol/L (22-29); CHLORIDE 93 mmol/L (98-107); CREATININE, SERUM 0.88 mg/dL (0.72-1.25); EST GLOMERULAR FILTRATION RATE > 60 ML/MIN (60-); GLUCOSE 228 mg/dL (74-118); POTASSIUM 4.2 mmol/L (3.5-5.1); SODIUM 136 mmol/L (136-145)
[2019-05-04 06:28] LABS: CREATINE KINASE MB 1.6 ng/mL (0-5.0)
[2019-05-04] MEDS: METHYLPREDNISOLONE SOD SUCC 125 MG/2ML VIAL IV SCH ×2 (06:40→13:41)
[2019-05-04] MEDS: HYDROCODONE/APAP 10MG-325MG TAB PO PRN ×3 (06:45→22:48)
--- NOTE | 2019-05-04 07:25 | Diagnostic Imaging Report ---
Frontal and lateral views of the chest. HISTORY: Acute respiratory, pneumonia COMPARISON: Chest radiograph May 03, 2019. DISCUSSION: See impression IMPRESSION: 1. Mildly increased bibasilar atelectasis. 2. Superimposed multifocal pneumonia or aspiration is a consideration in the appropriate setting. Signed by: Dr. Elan Kwon D.O., M.M.M. on 05/04/2019 7:22 AM
[2019-05-04] MEDS: NIFEDIPINE CR 30 MG TAB PO SCH (08:32)
[2019-05-04] MEDS: THEOPHYLLINE 200 MG TABCR PO SCH ×2 (08:32→17:03)
[2019-05-04] MEDS: CARVEDILOL 12.5 MG TAB PO SCH ×2 (08:33→17:03)
[2019-05-04] MEDS: BUMETANIDE 1 MG TAB PO SCH (08:33)
[2019-05-04] MEDS: INSULIN LISPRO 100 UNIT/1 ML 3ML VIAL SQ SCH ×4 (08:34→20:55)
[2019-05-04] MEDS: AZITHROMYCIN 500MG/NS 250 ML 250 ML IV SCH (08:36)
[2019-05-04] MEDS: SPIRONOLACTONE 25 MG TAB PO SCH (10:22)
[2019-05-04] MEDS: ASPIRIN 81 MG CHEW TAB PO SCH (10:22)
[2019-05-04] MEDS: LORATADINE 10 MG TAB PO SCH (10:23)
--- NOTE | 2019-05-04 13:40 | NUR ---
OK to transfer. Dr Rivera, Dr Norris, and Dr Faith agree pt can transfer to med-surg with telemetry and pulse ox. Addendum: 05/04/19 at 1456 by Tyler Rojo RN Transfer conditional to must have the bipap for night time, sleep, or dyspnea per Dr Rivera.
[2019-05-04] MEDS: CEFTRIAXONE SOD 2 GM/NS 100 ML 100 ML IV SCH (14:17)
--- NOTE | 2019-05-04 16:11 | Progress Note ---
DATE: Internal Medicine Progress Note SUBJECTIVE: The patient is doing better today. PHYSICAL EXAMINATION: VITAL SIGNS: Blood pressure 139/77, temperature 98.7, heart rate 70 per minute, respiratory rate 22 per minute, oxygen saturation 97%. HEART: Showed regular rhythm. Normal S1, S2 sound. LUNGS: Clear bilaterally. ABDOMEN: Soft. LABORATORY DATA: On the BMP; sodium 136, potassium 4.2, chloride 93, CO2 34, BUN 18, creatinine 0.88, glucose 228. On the CBC; white blood count 7.67, hemoglobin 12.6, hematocrit 41.0, platelet count 258,000. PT 12.3, INR 0.87, PTT 29.7. AST 24, ALT 26, total bilirubin 0.5, alkaline phosphatase 66. FINAL IMPRESSION: 1. Chronic obstructive pulmonary disease exacerbation. 2. Questionable pneumonia. 3. CO2 retention. 4. Morbid obesity. 5. Hypertension. 6. Uncontrolled diabetes mellitus type 2 with hyperglycemia. 7. Morbid obesity. PLAN OF TREATMENT: Continue albuterol and Atrovent q.4 hours as needed for shortness of breath, Zithromax 250 mg IV q.24 hours, ceftriaxone 2 g IV once a day, Solu-Medrol 60 mg IV q.8 hours, carvedilol 12.5 mg twice a day. Continue monitoring blood sugar before meals and at bedtime. Continue theophylline 200 mg twice a day, albuterol q.4 hours around the clock, nifedipine 30 mg in the morning, [place] 1 tab q.8 hours as needed, Lipitor 20 mg daily, Claritin 10 mg daily, Ambien 10 mg at bedtime, lorazepam 0.5 mg q.8 hours as needed, aspirin 81 mg daily, Aldactone 12.5 mg daily. Continue with Lantus 12 units at bedtime. The patient is doing better. He is going to be transferred out of ICU. MD MIAH Nesbitt/SATHYA /[id number]
--- NOTE | 2019-05-04 17:36 | NUR ---
Pt transferred to [facility] 198, without complications.
--- NOTE | 2019-05-04 17:41 | NUR ---
Recvd patient from ICU, AAOx3, Assisted him to bed, no distress noted
--- NOTE | 2019-05-04 18:50 | NUR ---
Bedside report received from Ke Nichols RN. Care plan reviewed with pt and pt at the bedside. Pt reports no pain or discomfort at this time. Pt eating sandwich provided by with no signs of distress noted at this time.
[2019-05-04] MEDS: LORAZEPAM 0.5 MG TAB PO PRN (19:50)
[2019-05-04] MEDS: INSULIN GLARGINE 100 UNITS/ML VIAL SQ SCH (20:55)
[2019-05-04] MEDS: ZOLPIDEM TARTRATE 10 MG TAB PO SCH (20:55)
--- NOTE | 2019-05-04 22:31 | NUR ---
PULMONARY MEDICINE DATE OF CONSULTATION: 05/04/2019 SUBJECTIVE: FEELS better 95% saturation 4 L/min oxygen bipap at night REVIEW OF SYSTEMS: no headaches, no bleeding OBJECTIVE: VITAL SIGNS: Noted, reviewed per the chart record. HEENT: Normocephalic and atraumatic. NECK: Supple. Throat midline. LUNGS: Bilateral air entry is decreased, no wheezes. CARDIOVASCULAR: S1, S2. No murmurs, rubs, or gallops. ABDOMEN: Soft and nontender. EXTREMITIES: No clubbing. No cyanosis. trace edema to legs. INTEGUMENT: No rash. No purpura. LABORATORY DATA: per EMR k 4.2 cr 0.88 IMPRESSION: 1. Acute respiratory failure, status post BiPAP salvage. 2. Acute on chronic bronchitis. 3. Nonallergic asthma with exacerbation on April 09. 4. Obesity hypoventilation syndrome. 5. Obstructive sleep apnea. 6. Hypertension. 7. Diabetes. Steroids wean Chronic prednisone maintenance every other day as outpatient. Wean him towards 10 every other day. continue bronchodilators. given BiPAP for sleep apnea while he is inpatient. Mobilize the patient as tolerated. continue all other respiratory medicines such as theophylline. Empiric antibiotics for this possibility of pneumonia 2 view CXR today noted- cant rule out pneumonia Thank you very much, Dr. Sapp, for allowing me a chance to participate in the care of Mr. Mcqueen. Please call for questions.
[2019-05-05] MEDS ORDERED: METHYLPREDNISOLONE SOD SUCC 125 MG/2ML VIAL IV SCH (02:00)
[2019-05-05] MEDS: ALBUTEROL/IPRATROPIUM 3 ML NEB NEB SCH ×7 (02:43→23:35)
[2019-05-05] MEDS: METHYLPREDNISOLONE SOD SUCC 40 MG/ML VIAL 1ML IV SCH ×2 (03:17→14:08)
[2019-05-05 05:41] LABS: CREATINE KINASE MB 3.9 ng/mL (0-5.0)
[2019-05-05] MEDS: HYDROCODONE/APAP 10MG-325MG TAB PO PRN (07:31)
[2019-05-05 07:58] VITALS: BP 136/92
[2019-05-05 08:30] VITALS: BP 136/92
[2019-05-05] MEDS: INSULIN LISPRO 100 UNIT/1 ML 3ML VIAL SQ SCH ×4 (08:30→20:34)
[2019-05-05] MEDS: AZITHROMYCIN 500MG/NS 250 ML 250 ML IV SCH (08:46)
[2019-05-05] MEDS: ASPIRIN 81 MG CHEW TAB PO SCH (08:53)
[2019-05-05] MEDS: LORATADINE 10 MG TAB PO SCH (08:53)
[2019-05-05] MEDS: BUMETANIDE 1 MG TAB PO SCH (08:53)
[2019-05-05] MEDS: SPIRONOLACTONE 25 MG TAB PO SCH (08:53)
[2019-05-05] MEDS: CARVEDILOL 12.5 MG TAB PO SCH (08:54)
[2019-05-05] MEDS: THEOPHYLLINE 200 MG TABCR PO SCH ×2 (08:54→16:32)
[2019-05-05] MEDS: NIFEDIPINE CR 30 MG TAB PO SCH (08:54)
[2019-05-05] MEDS ORDERED: GUAIFENESIN 200 MG/10 ML UDC PO PRN (11:45)
[2019-05-05 11:58] VITALS: BP 135/88
[2019-05-05] MEDS: CEFTRIAXONE SOD 2 GM/NS 100 ML 100 ML IV SCH (14:08)
[2019-05-05] MEDS: BENZONATATE 100 MG CAP PO SCH ×2 (14:13→20:26)
[2019-05-05 16:24] VITALS: BP 137/89
--- NOTE | 2019-05-05 17:39 | NUR ---
informed Dr. Qureshi of new patient, no new orders at this time
[2019-05-05 18:10] VITALS: BP 140/92
--- NOTE | 2019-05-05 18:15 | NUR ---
PATIENT RECEIVED FROM [facility] PER WHEEL CHAIR. ALERT AND VERBALLY RESPONSIVE. O2 IN PLACE VIA N/C. TELEMETRY BOX [address] REQUESTED AND RECEIVED A CUP OF ICE WATER. TRANSFERRED SELF FROM CHAIR TO BED. ALL PERSONAL ITEMS CLOSE TO PATIENT. CALL LIGHT AT REACH.
[2019-05-05] MEDS: ZOLPIDEM TARTRATE 10 MG TAB PO SCH (20:26)
[2019-05-05 20:35] VITALS: BP 140/92
[2019-05-05] MEDS: INSULIN GLARGINE 100 UNITS/ML VIAL SQ SCH (20:35)
[2019-05-06] VITALS (7 sets, daily range): BP systolic 122–144; BP diastolic 58–95
--- NOTE | 2019-05-06 00:04 | NUR ---
PULMONARY MEDICINE DATE OF CONSULTATION: 05/05/2019 SUBJECTIVE: FEELS better again walked up the stairs with difficulty eating BM REVIEW OF SYSTEMS: no headaches, no bleeding OBJECTIVE: VITAL SIGNS: Noted, reviewed per the chart record. HEENT: Normocephalic and atraumatic. NECK: Supple. Throat midline. LUNGS: Bilateral air entry is decreased, no wheezes. CARDIOVASCULAR: S1, S2. No murmurs, rubs, or gallops. ABDOMEN: Soft and nontender. EXTREMITIES: No clubbing. No cyanosis. trace edema to legs. INTEGUMENT: No rash. No purpura. LABORATORY DATA: no new updates IMPRESSION: 1. Acute respiratory failure, status post BiPAP salvage. 2. Acute on chronic bronchitis. 3. Nonallergic asthma with exacerbation on April 09. 4. Obesity hypoventilation syndrome. 5. Obstructive sleep apnea. 6. Hypertension. 7. Diabetes. 8. immunosuppressed state 9 . CAP pneumonia, acquired prior to hospitalization Steroids wean Chronic prednisone maintenance every other day as outpatient. Wean him towards 10 every other day. continue bronchodilators. given BiPAP for sleep apnea while he is inpatient. Mobilize the patient as tolerated. continue all other respiratory medicines such as theophylline. Empiric antibiotics for this possibility of pneumonia 2 view CXR today noted- cant rule out pneumonia Thank you very much, Dr. Sapp, for allowing me a chance to participate in the care of Mr. Mcqueen. Please call for questions.
[2019-05-06] MEDS: ALBUTEROL/IPRATROPIUM 3 ML NEB NEB SCH ×5 (03:22→19:45)
[2019-05-06] MEDS: HYDROCODONE/APAP 10MG-325MG TAB PO PRN ×2 (07:24→17:21)
[2019-05-06] MEDS: NIFEDIPINE CR 30 MG TAB PO SCH (08:53)
[2019-05-06] MEDS: BUMETANIDE 1 MG TAB PO SCH (08:53)
[2019-05-06] MEDS: LORATADINE 10 MG TAB PO SCH (08:53)
[2019-05-06] MEDS: ASPIRIN 81 MG CHEW TAB PO SCH (08:54)
[2019-05-06] MEDS: BENZONATATE 100 MG CAP PO SCH ×3 (08:54→20:40)
[2019-05-06] MEDS: THEOPHYLLINE 200 MG TABCR PO SCH ×2 (08:54→17:09)
[2019-05-06] MEDS: SPIRONOLACTONE 25 MG TAB PO SCH (08:56)
[2019-05-06] MEDS: AZITHROMYCIN 500MG/NS 250 ML 250 ML IV SCH (08:57)
[2019-05-06] MEDS ORDERED: PREDNISONE 20 MG TAB PO SCH (09:00)
[2019-05-06] MEDS ORDERED: SODIUM CHLORIDE 0.9% 250ML 250 ML ONE (09:11)
[2019-05-06] MEDS: INSULIN LISPRO 100 UNIT/1 ML 3ML VIAL SQ SCH ×4 (09:31→20:41)
[2019-05-06] MEDS: CEFTRIAXONE SOD 2 GM/NS 100 ML 100 ML IV SCH (13:39)
--- NOTE | 2019-05-06 15:18 | Progress Note ---
DATE: 05/06/2019 Medicine Progress Note SUBJECTIVE: The patient was transferred to my service due to insurance purposes. He was under the service of Dr. Sapp. The patient was being admitted for underlying COPD exacerbation. He has also a history of type 2 diabetes, hypertension, morbidly obese. He has a history of hypercapnic respiratory failure in the past. He is being managed by Cardiology as well as Pulmonary. Currently, he is doing well. He is on nasal cannula. He is on oxygen at home as well. PHYSICAL EXAMINATION: VITAL SIGNS: Temperature is 97.1, pulse 77, respiratory rate is 17, blood pressure 141/91, and pulse ox 97% on 4 L nasal cannula. GENERAL: Not in acute distress. Alert and oriented x3. Cooperative on examination. HEENT: Head; normocephalic, atraumatic. Eyes; pupils are equal, round, and reactive to light bilaterally. Extraocular movements are intact bilaterally. Throat; no evidence of erythema or exudates in the posterior pharynx. Has poor dentition. NECK: Supple. Good range of motion. PULMONARY: Clear to auscultation bilaterally. No wheezing, no rales, no rhonchi, no crackles appreciated. CARDIOVASCULAR: Positive S1 and S2. No murmurs, rubs, or gallops appreciated. ABDOMEN: Soft, nondistended, and nontender to palpation. Bowel sounds present. MUSCULOSKELETAL: Strength is 5/5 throughout. No evidence of any muscle deficits on examination. No weakness appreciated. NEUROLOGIC: Cranial nerve 2 through 12 grossly intact. No evidence of any neurological deficits on exam. SKIN: Intact. Warm to touch. Good cap refill. PSYCHIATRIC: Normal affect and mood. EXTREMITIES: No edema. Good range of motion throughout. LABORATORY DATA: Lab findings show white count 7.6, hemoglobin 12.6, hematocrit is 41, and platelets of 258. Chemistries; sodium 136, potassium 4.2, chloride is 93, bicarbonate is 34, anion gap of 13, BUN is 18, creatinine is 0.88. LFTs are within normal range. Albumin is 3.9. Urinalysis negative. Urine drug screen positive for benzos and opioids. IMAGING STUDIES: Chest x-ray. Mild increased bibasilar atelectasis. Superimposed multifocal pneumonia or aspiration consideration. IMPRESSION: 1. Acute exacerbation of chronic obstructive pulmonary disease. 2. Probable community-acquired pneumonia with underlying bronchitis. 3. Type 2 diabetes. 4. Hypertension. 5. Morbid obesity. 6. Obstructive sleep apnea. PLAN: At this time, continue with neb treatments, theophylline and steroids. Being managed by Pulmonary. In terms of his history of heart failure, Cardiology is following. He is on cardioprotective medications. Continue with his insulin, Lantus insulin sliding scale. Continue with same antihypertensive medications p.r.n. hydralazine. Also continue with aggressive IV antibiotic therapy. There are no cultures collected. Encourage ambulation. Once the patient improves, the patient can be discharged to home. We will monitor the patient very closely. MD HERMES Freeman/MODL /[id number]
--- NOTE | 2019-05-06 19:00 | NUR ---
patient received awake, alert, lying quietly in bed. respirations even and unlabored. /4l/nc in use. pm assessment complete. patient instructed to call for assistance when needed.
[2019-05-06] MEDS: ZOLPIDEM TARTRATE 10 MG TAB PO SCH (20:40)
[2019-05-06] MEDS: INSULIN GLARGINE 100 UNITS/ML VIAL SQ SCH (20:41)
[2019-05-07] VITALS (8 sets, daily range): BP systolic 128–169; BP diastolic 62–98
[2019-05-07] MEDS: ALBUTEROL/IPRATROPIUM 3 ML NEB NEB SCH ×6 (00:24→20:11)
--- NOTE | 2019-05-07 01:00 | NUR ---
patient appears to be resting quietly. no c/o pain noted at this time. remains at the bedside.
--- NOTE | 2019-05-07 01:21 | NUR ---
PULMONARY MEDICINE DATE OF CONSULTATION: 05/06/2019 SUBJECTIVE: FEELS better mildly eating BM oxygen 4 L/min by MS expectorating phlegm REVIEW OF SYSTEMS: no headaches, no bleeding OBJECTIVE: VITAL SIGNS: Noted, reviewed per the chart record. HEENT: Normocephalic and atraumatic. NECK: Supple. Throat midline. LUNGS: Bilateral air entry is decreased, no wheezes. CARDIOVASCULAR: S1, S2. No murmurs, rubs, or gallops. ABDOMEN: Soft and nontender. EXTREMITIES: No clubbing. No cyanosis. trace edema to legs. INTEGUMENT: No rash. No purpura. LABORATORY DATA: no new updates IMPRESSION: 1. Acute respiratory failure, s/p BiPAP salvage. 2. Acute on chronic bronchitis. 3. Nonallergic asthma with exacerbation on April 09. 4. Obesity hypoventilation syndrome. 5. Obstructive sleep apnea. 6. Hypertension. 7. Diabetes. 8. immunosuppressed state 9. CAP pneumonia, acquired prior to hospitalization Steroids wean Chronic prednisone maintenance every other day as outpatient. Wean him towards 10 mg every other day maintenance. continue bronchodilators. given BiPAP for sleep apnea while he is inpatient. Mobilize the patient as tolerated. continue all other respiratory medicines such as theophylline. Empiric antibiotics for pneumonia 2 view CXR noted- c/w pneumonia Thank you very much, Dr. Sapp, for allowing me a chance to participate in the care of Mr. Mcqueen. Please call for questions.
[2019-05-07 05:53] LABS: BASOPHILS % 0.1 % (0.0-1.0); EOSINOPHILS # (AUTO) 0.1 (0.0-0.4); EOSINOPHILS % 0.8 % (0.0-6.0); HEMOGLOBIN 13.8 g/dL (14.0-18.0); LYMPHOCYTES % 35.4 % (18.0-39.1); MEAN CORPUSCULAR HEMOGLOBIN 29.1 pg (28-32); MEAN CORPUSCULAR HGB CONC 31.4 g/dL (31-35); MEAN CORPUSCULAR VOLUME 92.8 fL (81-99); MONOCYTES # (AUTO) 0.8 (0.2-0.8); MONOCYTES % 7.1 % (4.4-11.3); NEUTROPHILS # (AUTO) 6.4 (2.1-6.9); NEUTROPHILS % 56.2 % (38.7-80.0); PLATELET COUNT 270 x10e3/uL (140-360); RED BLOOD COUNT 4.74 x10e6/uL (4.3-5.7); RED CELL DISTRIBUTION WIDTH 13.2 % (11.7-14.4)
[2019-05-07 06:16] LABS: ANION GAP 15.9 mmol/L (8-16); BLOOD UREA NITROGEN 20 mg/dL (7-26); BUN/CREATININE RATIO 19 (6-25); CALCIUM 9.7 mg/dL (8.4-10.2); CARBON DIOXIDE 30 mmol/L (22-29); CHLORIDE 95 mmol/L (98-107); CREATININE, SERUM 1.07 mg/dL (0.72-1.25); EST GLOMERULAR FILTRATION RATE > 60 ML/MIN (60-); POTASSIUM 3.9 mmol/L (3.5-5.1); SODIUM 137 mmol/L (136-145)
[2019-05-07 06:34] LABS: GLUCOSE 160 mg/dL (74-118)
--- NOTE | 2019-05-07 06:53 | NUR ---
received bedside report from nightclub manager RN, pt sitting up in bed, awake, alert, oriented, no distress noted, will continue to monitor.
[2019-05-07] MEDS: INSULIN LISPRO 100 UNIT/1 ML 3ML VIAL SQ SCH ×4 (09:15→21:45)
[2019-05-07] MEDS: AZITHROMYCIN 500MG/NS 250 ML 250 ML IV SCH ×2 (09:15→14:00)
[2019-05-07] MEDS: HYDROCODONE/APAP 10MG-325MG TAB PO PRN (09:29)
[2019-05-07] MEDS: SPIRONOLACTONE 25 MG TAB PO SCH (09:30)
[2019-05-07] MEDS: BUMETANIDE 1 MG TAB PO SCH (09:31)
[2019-05-07] MEDS: LORATADINE 10 MG TAB PO SCH (09:31)
[2019-05-07] MEDS: ASPIRIN 81 MG CHEW TAB PO SCH (09:31)
[2019-05-07] MEDS: PREDNISONE 20 MG TAB PO SCH (09:32)
[2019-05-07] MEDS: NIFEDIPINE CR 30 MG TAB PO SCH (09:33)
[2019-05-07] MEDS: BENZONATATE 100 MG CAP PO SCH ×3 (09:33→21:45)
[2019-05-07] MEDS: THEOPHYLLINE 200 MG TABCR PO SCH ×2 (09:34→17:07)
[2019-05-07] MEDS: GUAIFENESIN/CODEINE 10 ML CUP PO PRN (13:50)
--- NOTE | 2019-05-07 14:25 | Progress Note ---
DATE: 05/07/2019 Medicine Progress Note SUBJECTIVE: The patient reports feeling much better today. He does report having some cough, which I will go ahead and order some Robitussin with codeine and Tessalon Perles. He states that he will feel much better, possibly tomorrow for discharge. He does have Tessalon Perles already scheduled. Based on the MAR, we will just add some Robitussin with codeine. PHYSICAL EXAMINATION: VITAL SIGNS: Temperature 96.5, pulse 97, respiratory rate is 18, blood pressure 134/76, and pulse ox is 94% on 3.5 L nasal cannula chronically. GENERAL: Not in acute distress. Alert and oriented x3. Cooperative on examination. HEENT: Head; normocephalic, atraumatic. Eyes; pupils are equal, round, and reactive to light bilaterally. Extraocular movements intact bilaterally. Throat; no evidence of erythema or exudates in the posterior pharynx. Has poor dentition. NECK: Supple. Good range of motion. PULMONARY: Clear to auscultation bilaterally. No wheezing, no rales, no rhonchi, no crackles appreciated. CARDIOVASCULAR: Positive S1 and S2. No murmurs, rubs, or gallops appreciated. ABDOMEN: Soft, nondistended, and nontender to palpation. Bowel sounds present. MUSCULOSKELETAL: Strength is 5/5 throughout. No evidence of any muscle deficits on examination. No weakness appreciated. NEUROLOGIC: Cranial nerve II through XII grossly intact. No evidence of any neurological deficits on exam. SKIN: Intact. Warm to touch. Good cap refill. PSYCHIATRIC: Normal affect and mood. EXTREMITIES: No edema. Good range of motion throughout. LABORATORY FINDINGS: Show white count 11.3. He is currently on steroids. Hemoglobin 13.8, hematocrit is 44, and platelets of 270. Chemistry; sodium 137, potassium 3.9, chloride 95, bicarb 30, anion gap of 15, BUN is 20, creatinine is 1, glucose 160, calcium 9.7. MICROBIOLOGY: None. IMAGING STUDIES: None. IMPRESSION: 1. Nonallergic asthma with exacerbation. 2. Acute respiratory failure, now on nasal cannula chronically. 3. Lxfoz-wz-hjxntaq bronchitis. 4. Obesity hypoventilation syndrome. 5. Type 2 diabetes. 6. Hypertension. 7. Probable pneumonia. PLAN: At this time, continue with neb treatments, theophylline, and steroids, being managed by Pulmonary. Cardiology is following as well, recommend cardioprotective medications. He is on Lantus and insulin sliding scale. I did add Robitussin with codeine for the cough. Continue with same plan of care. Monitor closely. Plan is to discharge home tomorrow. I discussed this with the patient and the nurse at bedside and he verbalized understanding. MD HERMES Freeman/SATHYA /[id number]
[2019-05-07] MEDS ORDERED: SODIUM CHLORIDE 0.9% 250ML 250 ML ONE (16:03)
[2019-05-07] MEDS: CEFTRIAXONE SOD 2 GM/NS 100 ML 100 ML IV SCH (16:27)
--- NOTE | 2019-05-07 19:10 | NUR ---
BS rounds completed with morning nurse. Pt alert to name. Sitting up in bed HOB 75 degrees. Denies pain at this time. Call horne within reach. Bed low and locked. Will continue to monitor.
--- NOTE | 2019-05-07 21:32 | NUR ---
PULMONARY MEDICINE DATE OF CONSULTATION: 05/07/2019 SUBJECTIVE: steady progress SOB readily on exertion, but getting closer to baseline oxygen 4 L/min by NC eats well REVIEW OF SYSTEMS: no headaches, no bleeding OBJECTIVE: VITAL SIGNS: Noted, reviewed per the chart record. HEENT: Normocephalic and atraumatic. NECK: Supple. Throat midline. LUNGS: Bilateral air entry is decreased, no wheezes. CARDIOVASCULAR: S1, S2. No murmurs, rubs, or gallops. ABDOMEN: Soft and nontender. EXTREMITIES: No clubbing. No cyanosis. trace edema to legs. INTEGUMENT: No rash. No purpura. LABORATORY DATA: no new updates IMPRESSION: 1. Acute respiratory failure, s/p BiPAP salvage. 2. Acute on chronic bronchitis. 3. CAP pneumonia, acquired prior to hospitalization 4. Nonallergic asthma 4. Obesity hypoventilation syndrome. 5. Obstructive sleep apnea. 6. Hypertension. 7. Diabetes. 8. immunosuppressed state Steroids wean Chronic prednisone maintenance every other day as outpatient. Wean him towards 10 mg every other day maintenance. continue bronchodilators. given BiPAP for sleep apnea while he is inpatient. Mobilize the patient as tolerated. continue all other respiratory medicines such as theophylline. Empiric antibiotics for pneumonia 2 view CXR noted- c/w pneumonia Thank you very much, Dr. Sapp, for allowing me a chance to participate in the care of Mr. Mcqueen. Please call for questions.
[2019-05-07] MEDS ORDERED: AZITHROMYCIN500 MG PO (21:42)
[2019-05-07] MEDS ORDERED: NAC600 MG PO (21:42)
[2019-05-07] MEDS ORDERED: PREDNISONE10 MG PO ×2 (21:42)
[2019-05-07] MEDS: ZOLPIDEM TARTRATE 10 MG TAB PO SCH (21:45)
[2019-05-07] MEDS: INSULIN GLARGINE 100 UNITS/ML VIAL SQ SCH (21:45)
[2019-05-08] VITALS: BP 148/84
[2019-05-08] MEDS: ALBUTEROL/IPRATROPIUM 3 ML NEB NEB SCH ×3 (03:21→11:16)
[2019-05-08 04:00] VITALS: BP 131/85
--- NOTE | 2019-05-08 07:00 | NUR ---
received bedside report from night shift manager RN, pt awake, alert, respirations even, nonlabored, no distress noted. will continue to monitor
[2019-05-08 08:20] VITALS: BP 160/100
[2019-05-08] MEDS: AZITHROMYCIN 500MG/NS 250 ML 250 ML IV SCH (08:28)
[2019-05-08] MEDS: ASPIRIN 81 MG CHEW TAB PO SCH (08:30)
[2019-05-08] MEDS: LORATADINE 10 MG TAB PO SCH (08:30)
[2019-05-08] MEDS: BUMETANIDE 1 MG TAB PO SCH (08:30)
[2019-05-08] MEDS: SPIRONOLACTONE 25 MG TAB PO SCH (08:30)
[2019-05-08] MEDS: NIFEDIPINE CR 30 MG TAB PO SCH (08:31)
[2019-05-08] MEDS: PREDNISONE 20 MG TAB PO SCH (08:31)
[2019-05-08] MEDS: BENZONATATE 100 MG CAP PO SCH (08:32)
[2019-05-08] MEDS: THEOPHYLLINE 200 MG TABCR PO SCH (08:33)
[2019-05-08] MEDS: INSULIN LISPRO 100 UNIT/1 ML 3ML VIAL SQ SCH (08:40)
[2019-05-08 09:37] VITALS: BP 180/100
[2019-05-08] MEDS: GUAIFENESIN/CODEINE 10 ML CUP PO PRN (09:59)
--- NOTE | 2019-05-08 10:42 | NUR ---
ORDER FOR HUMIDIFIER FOR HOME O2 FAXED TO [facility] @ FAX: [phone].
[2019-05-08] MEDS ORDERED: ROBITUSSIN COU118 ML PO (11:12)
[2019-05-08 11:29] VITALS: BP 128/87
--- NOTE | 2019-05-09 07:35 | Discharge Summary ---
FINAL DISCHARGE DIAGNOSES: 1. Nonallergic asthma with exacerbation. 2. Acute respiratory failure, now on nasal cannula chronically. 3. Jmihm-qf-zqpvmmp bronchitis. 4. Obesity hypoventilation syndrome. 5. Type 2 diabetes. 6. Hypertension. 7. Probable pneumonia. 8. Morbidly obese. 9. Hypertension. CONSULTANTS: We had Pulmonary and Cardiology. PHYSICAL EXAMINATION: VITAL SIGNS: Temperature is 97.2, pulse 86, respiratory rate is 18, blood pressure 131/85, and pulse ox 95% and he is on 3 L nasal cannula chronically. LABORATORY DATA: Labs show white count 11.3, hemoglobin 13.8, hematocrit is 44, and platelets of 270. Coagulation; PT 12, INR 0.87, PTT 29.7. Chemistry; sodium 137, potassium is 3.9, chloride 95, bicarbonate 30, anion gap of 15, BUN is 20, creatinine is 1, point of care glucose 155, calcium is 9.7, total bilirubin is 0.5, AST 24, ALT 26, alkaline phosphatase 66. Troponins were all negative. Albumin 3.9. Urinalysis negative. Urine drug screen shows positive opiates, positive benzodiazepines. MICROBIOLOGY: None. IMAGING STUDIES: Chest x-ray on 05/04/2019, shows mildly increased bibasilar atelectasis. Superimposed multifocal pneumonia or aspiration consideration. HOSPITAL COURSE: This is a 53-year-old male with multiple comorbidities, comes into the emergency room with underlying respiratory failure due to his underlying nonallergic asthma with exacerbation and he required BiPAP and was sent to the ICU. He was treated also for amhcp-rz-emzqfir bronchitis. While here, Pulmonary Critical Care was consulted and managed him accordingly. He was on broad-spectrum IV antibiotics, steroids as well as inhalers with much improvement. The patient was eventually weaned off BiPAP, back on his normal chronic nasal cannula, and transferred to the medical floor. The patient improved tremendously while on the medical floor. Cardiology was consulted due to history of diastolic heart failure. The patient was on cardioprotective medications as well as diuretics with much improvement. Cardiology evaluated the patient and cleared the patient for discharge to home. The patient improved throughout the hospital course, back to his normal baseline with no other issues. The patient was cleared for discharge by Pulmonary and Cardiology. The patient will be discharged on some antibiotics and acetylcysteine as well as prednisone as per Pulmonary recommendations. He also be discharged on his other home medications. The patient was cleared for discharge by all consultants. On the day of discharge, vital signs were stable, labs reviewed and stable. The patient was seen, evaluated, and examined thoroughly on the day of discharge. No other complaints. 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 MEDICATIONS: See med reconciliation form. The patient will be discharged on: 1. Levemir FlexPen 12 units at bedtime. 2. Humalog KwikPen 8 units t.i.d. with meals. 3. Robitussin with codeine, take 5 mL every 4 hours as needed for cough, quantity sufficient for 10 days only. DISPOSITION: To home. CONDITION: Stable. DIET: Heart healthy. In the event of any worsening symptoms, the patient advised the patient came back to the ED for further evaluation. Discharge summary took greater than 35 minutes. MD HERMES Freeman/SATHYA /[id number]
== END 2019-05-08 12:00 | disposition home or self-care (01) | DRG 193 ==
LOC: ER 04:00 → ERHOLD 06:26 → ICU 08:19 → IMCU 05-04 17:27 → MED/SURG3 05-05 18:25
PROVIDERS: ADMIT Internal Medicine; ATTEND Internal Medicine
DX: J18.9 Pneumonia, unspecified organism (principal); J96.02 Acute respiratory failure with hypercapnia; J44.0 Chronic obstructive pulmonary disease with (acute) lower respiratory infection; Z68.41 Body mass index [BMI] 40.0-44.9, adult; I50.30 Unspecified diastolic (congestive) heart failure; J45.901 Unspecified asthma with (acute) exacerbation; E66.2 Morbid (severe) obesity with alveolar hypoventilation; J44.1 Chronic obstructive pulmonary disease with (acute) exacerbation; E66.01 Morbid (severe) obesity due to excess calories; E11.65 Type 2 diabetes mellitus with hyperglycemia; J20.9 Acute bronchitis, unspecified; I11.0 Hypertensive heart disease with heart failure
CPT/HCPCS: 36415; 36600; 71045; 71046; 80048; 80053; 80307; 81001; 82550; 82553; 82805; 82948; 83880; 84484; 85025; 85610; 85730; 93005; 93307; 94640; 94660; 96372; 99284; J0456; J0696; J1815; J2920; J2930; J7050; J7512

== ENCOUNTER 2019-07-08 12:21 | Emergency (ER) | payer MEDICARE ==
[~2019-07-08] VITALS: Ht 172.7 cm; Wt 144.7 kg
[~2019-07-08 12:21] MED LIST changes: +AZITHROMYCIN500 MG PO; +ROBITUSSIN COU118 ML PO
[2019-07-08] MEDS ORDERED: OXYMETAZOLINE HCL 0.05% NAS 1 SPRAY BTL ONE ×2 (13:15→13:18)
[2019-07-08] MEDS ORDERED: AUGMENTIN 875-1 EACH PO (13:41)
== END 2019-07-08 13:50 | disposition home or self-care (01) ==
LOC: FSED 12:21
DX: R04.0 Epistaxis (principal); I10 Essential (primary) hypertension; J30.89 Other allergic rhinitis; I50.42 Chronic combined systolic (congestive) and diastolic (congestive) heart failure
CPT/HCPCS: 99284

== ENCOUNTER 2019-07-27 19:25 | Inpatient (IN) | payer MEDICARE ==
[~2019-07-27] VITALS: Ht 180.3 cm; Wt 139.5 kg
[~2019-07-27 19:25] MED LIST changes: +AUGMENTIN 875-1 EACH PO
[2019-07-27] MEDS ORDERED: ASPIRIN 81 MG CHEW TAB PO ONE (20:00)
[2019-07-27 20:15] LABS: BASOPHILS % 0.1 % (0.0-1.0); EOSINOPHILS # (AUTO) 0.1 (0.0-0.4); EOSINOPHILS % 1.2 % (0.0-6.0); HEMATOCRIT 39.4 % (38.2-49.6); HEMOGLOBIN 12.2 g/dL (14.0-18.0); LYMPHOCYTES # (AUTO) 2.7 (1.0-3.2); LYMPHOCYTES % 32.2 % (18.0-39.1); MEAN CORPUSCULAR HEMOGLOBIN 28.6 pg (28-32); MEAN CORPUSCULAR VOLUME 92.5 fL (81-99); MONOCYTES # (AUTO) 0.7 (0.2-0.8); MONOCYTES % 8.1 % (4.4-11.3); NEUTROPHILS # (AUTO) 4.8 (2.1-6.9); NEUTROPHILS % 58.3 % (38.7-80.0); PLATELET COUNT 313 x10e3/uL (140-360); RED BLOOD COUNT 4.26 x10e6/uL (4.3-5.7); RED CELL DISTRIBUTION WIDTH 13.8 % (11.7-14.4)
[2019-07-27 20:26] LABS: INR 0.9; PROTHROMBIN TIME 12.6 seconds (11.9-14.5)
[2019-07-27 20:27] LABS: PARTIAL THROMBOPLASTIN TIME 28.6 seconds (23.8-35.5)
[2019-07-27 20:36] LABS: ALANINE AMINOTRANSFERASE 20 IU/L (0-55); ALBUMIN 3.7 g/dL (3.5-5.0); ALKALINE PHOSPHATASE 78 IU/L (40-150); BLOOD UREA NITROGEN 16 mg/dL (7-26); BUN/CREATININE RATIO 13 (6-25); CALCIUM 10.1 mg/dL (8.4-10.2); CHLORIDE 98 mmol/L (98-107); CREATINE KINASE 141 IU/L (30-200); CREATININE, SERUM 1.22 mg/dL (0.72-1.25); EST GLOMERULAR FILTRATION RATE > 60 ML/MIN (60-); GLUCOSE 190 mg/dL (74-118); MAGNESIUM 1.8 MG/DL (1.3-2.1); SODIUM 139 mmol/L (136-145)
--- NOTE | 2019-07-27 20:50 | Diagnostic Imaging Report ---
EXAMINATION: CHEST 2 VIEWS INDICATION: Shortness of breath. ^ORDER PLACED BY ^[id number] ^2014 ^Y COMPARISON: None FINDINGS: PA and lateral views TUBES and LINES: None. LUNGS: Low lung volumes. Central vascular congestion. Left midlung linear opacity, representing atelectasis/scarring. PLEURA: No significant pleural effusion or pneumothorax. HEART AND MEDIASTINUM: The cardiomediastinal silhouette is unremarkable. BONES AND SOFT TISSUES: No acute osseous lesion. Degenerative changes of thoracic spine. Soft tissues are unremarkable. UPPER ABDOMEN: No free air under the diaphragm. IMPRESSION: Mild central vascular congestion. Left midlung linear opacity, representing atelectasis/scarring. Signed by: Dr. Vinod Copeland MD on 07/27/2019 8:47 PM
[2019-07-27 20:52] LABS: ANION GAP 16.9 mmol/L (8-16); CARBON DIOXIDE 28 mmol/L (22-29)
[2019-07-27] MEDS ORDERED: FUROSEMIDE INJ 10 MG/ML 4 ML VIAL ONE (22:14)
[2019-07-27] MEDS ORDERED: FUROSEMIDE INJ 10 MG/ML 4 ML VIAL IV ONE (22:15)
[2019-07-28] VITALS (8 sets, daily range): BP systolic 121–146; BP diastolic 65–96
[2019-07-28 00:10] LABS: CREATINE KINASE MB 1.8 ng/mL (0-5.0)
[2019-07-28] MEDS ORDERED: HYDROCODONE/APAP 10MG-325MG TAB PO ONE (01:15)
[2019-07-28] MEDS ORDERED: HYDROCODONE/APAP 10MG-325MG TAB ONE (01:32)
[2019-07-28 06:59] LABS: BILIRUBIN,URINE NEGATIVE (NEGATIVE); CLARITY,URINE CLEAR (CLEAR); COLOR,URINE YELLOW (YELLOW); KETONES,URINE NEGATIVE (NEGATIVE); LEUKOCYTE ESTERASE ,URINE NEGATIVE (NEGATIVE); NITRITE,URINE NEGATIVE (NEGATIVE); PROTEIN,URINE DIPSTICK NEGATIVE (NEGATIVE); URINE UROBILINOGEN 0.2 mg/dL (0.2 - 1)
--- NOTE | 2019-07-28 07:00 | NUR ---
received report from off going nurse. patient in room in bed resting quietly with eyes closed. pending room assignment for admit
[2019-07-28 07:06] LABS: BACTERIA,URINE FEW /HPF; EPITHELIAL CELLS,URINE MODERATE /LPF; RBC,URINE 0-5 /HPF (0-5)
[2019-07-28 07:30] LABS: CREATINE KINASE MB 1.1 ng/mL (0-5.0)
--- NOTE | 2019-07-28 09:17 | NUR ---
RECEIVED PATIENT FROM ER. PATIENT A/O X3, EVEN RESPIRATIONS ON 2LNC. LUNG SOUNDS CLEAR TO AUSCULTATION. TELEMETRY #26 SR. PATIENT AMBULATES INDEPENDENTLY. CHEST PAIN 01/13. ORIENTED PATIENT TO ROOM AND CALL LIGHT. BED LOW, WHEELS LOCKED, SIDE RAILS X2. CALL LIGHT IN REACH WILL CONTINUE TO MONITOR PATIENT.
[2019-07-28] MEDS ORDERED: DEXTROSE 50% SYRINGE 50 ML IV PRN (12:00)
[2019-07-28] MEDS: INSULIN LISPRO 100 UNIT/1 ML 3ML VIAL SQ SCH ×3 (12:22→20:31)
[2019-07-28] MEDS ORDERED: ACETAMINOPHEN 325 MG TAB PO PRN (13:30)
[2019-07-28] MEDS ORDERED: ONDANSETRON HCL INJ 2MG/ML 2ML 2 MG/ML VIAL IV PRN (13:30)
[2019-07-28] MEDS ORDERED: SODIUM CHLORIDE 0.9% 250ML 250 ML ONE (14:19)
[2019-07-28] MEDS: FUROSEMIDE INJ 100 MG in SODIUM CHLORIDE 0.9% 100 ML 90 ML IV SCH (14:27)
[2019-07-28] MEDS: HYDROCODONE/APAP 5MG-325MG TAB PO PRN ×2 (15:15→22:09)
[2019-07-28 15:32] LABS: CREATINE KINASE 94 IU/L (30-200)
[2019-07-28] MEDS ORDERED: INSULIN LISPRO 100 UNIT/1 ML 3ML VIAL SQ SCH (16:30)
[2019-07-28] MEDS: CARVEDILOL 12.5 MG TAB PO SCH (16:47)
--- NOTE | 2019-07-28 18:54 | Consultation ---
DATE OF CONSULTATION: Cardiology Consultation HISTORY OF PRESENT ILLNESS: This is a 53-year-old man with a history of chronic respiratory failure, COPD, hypertension, diabetes mellitus, diastolic heart failure, and morbid obesity, who presented to the emergency department with progressively worsening shortness of breath. The patient also reports chest discomfort also associated with some lower extremity swelling. The patient states that he is on Bumex 1 mg p.o. b.i.d. He states that he had a heart catheterization last year at [facility], which was normal. Upon arrival here, he ruled out for acute myocardial infarction. He is currently on Lasix drip and feeling better. REVIEW OF SYSTEMS: A 12-point review of system was conducted and is negative except as stated above in the HPI. PAST MEDICAL HISTORY: As stated above in the HPI. PAST SURGICAL HISTORY: None recent. PAST FAMILY HISTORY: Noncontributory. SOCIAL HISTORY: No illicit drug, alcohol, or tobacco use. ALLERGIES: LISINOPRIL. MEDICATIONS: See medication reconciliation form. PHYSICAL EXAMINATION: VITAL SIGNS: Temperature is 97.2, heart rate is 73, respirations are 18, blood pressure is 153/93, and oxygen saturation is 98% on 3.5 L nasal cannula. GENERAL: Well-appearing, in no apparent distress. Alert and oriented x3. HEAD: Normocephalic and atraumatic. EYES: The extraocular muscles are intact. Conjunctivae are clear. NECK: No JVD. No bruits. CARDIOVASCULAR: Regular rate and rhythm. LUNGS: Clear to auscultation. ABDOMEN: Soft, nontender, and nondistended. EXTREMITIES: No clubbing, cyanosis, or edema. LABORATORY DATA: Reviewed. Troponin negative x2. Creatinine is 1.22. Chest x-ray shows mild central vascular congestion. IMPRESSION: 1. Iljgn-qc-yswadnl respiratory failure with hypoxia. 2. Dixse-ue-wmcydcn diastolic heart failure. 3. Hypertension. 4. Hyperlipidemia. 5. Diabetes mellitus. 6. Chronic obstructive pulmonary disease. RECOMMENDATIONS: This patient is ruled out for acute myocardial infarction. He states that he had a prior catheterization, which showed no significant disease. Continue diuresis with Lasix drip. Resume all other antihypertensives. Wean oxygen as tolerated. COPD treatment per primary team. Nitish [place], DO BM/MARKIEL /[id number]
[2019-07-28] MEDS: IPRATROPIUM BROMIDE 0.02% 2.5 ML NEB NEB SCH (19:40)
[2019-07-28] MEDS: INSULIN GLARGINE 100 UNITS/ML VIAL SQ SCH (20:30)
[2019-07-28] MEDS: ATORVASTATIN 20 MG TAB PO SCH (20:31)
[2019-07-28] MEDS: METHYLPREDNISOLONE SOD SUCC 40 MG/ML VIAL 1ML IV SCH (20:31)
[2019-07-28] MEDS: ENOXAPARIN SOD INJ 40 MG/0.4 ML SYR SC SCH (22:31)
[2019-07-28] MEDS ORDERED: AZITHROMYCIN 500MG/NS 250 ML 250 ML IV SCH (23:00)
--- NOTE | 2019-07-28 23:26 | Consultation ---
DATE OF CONSULTATION: 07/28/2019 Pulmonary Medicine Consult REFERRING PHYSICIAN: Dr. Sanchez. REASON FOR REFERRAL: Respiratory failure. HISTORY OF PRESENT ILLNESS: Mr. Mcqueen is a pleasant 53-year-old gentleman with acute respiratory failure. The patient was in his usual state of health until today. He experienced chest pain/tightness when he woke up. He was in central chest. No known inciting factors, no sick contacts known. The patient was having associated shortness of breath. The patient came to emergency room for further evaluation. In the emergency room, he was seemed to be very dyspneic. Chest x-ray with mild vascular congestion pattern, atelectasis surmise. The patient was admitted. The patient well known to me with chronic bronchitis. The patient with obesity hypoventilation syndrome as well. Due to recurrent hospitalization, he has been on medications including theophylline and prednisone 20 mg a day recently. He has been treating as nonallergic asthma. PAST MEDICAL HISTORY: Asthma, nonallergic type, hypertension, diabetes, obesity hypoventilation syndrome, obstructive sleep apnea, history of knee and ankle surgery. MEDICATIONS: Medication list reviewed per the chart record. ALLERGIES: LISINOPRIL. SOCIAL HISTORY: No drinking, no drugs, no smoking. FAMILY HISTORY: Noncontributory to this. REVIEW OF SYSTEMS: GENERAL: There are no weight changes. OPHTHALMOLOGIC: No floaters. ENDOCRINE: No known thyroid disease recently. PULMONARY: No hemoptysis. CARDIAC: No heart attack. GI: No constipation. : No blood in urine. NEUROLOGIC: No seizures. DERMATOLOGIC: No rash. PSYCHIATRIC: No depression. OBJECTIVE: VITAL SIGNS: Afebrile, vital signs noted and reviewed per the chart record. GENERAL: In no acute distress, alert and calm. HEENT: Normocephalic, atraumatic. NECK: Supple. Throat midline. LUNGS: Bilateral air entry, decreased breath sounds mildly, but few rhonchi. CARDIOVASCULAR: S1, S2. No murmurs, rubs, or gallops. ABDOMEN: Soft, nontender, and obese. EXTREMITIES: No clubbing. No cyanosis. There is 1+ edema to legs. INTEGUMENT: No rash. No purpura. LABORATORY DATA: Labs and radiography reviewed per the chart record. IMPRESSION AND PLAN: 1. Fluid overload, acute on chronic diastolic dysfunction. 2. Obesity hypoventilation syndrome. 3. Acute respiratory failure, BiPAP salvage. 4. Obstructive sleep apnea. 5. Nonallergic asthma. 6. Hypertension. 7. Diabetes. 8. Low doses of steroid boost. Continue bronchodilators. Diuretic drip was ordered and I am sure if he improves, continue BiPAP weaning off as he gets better. We will follow along closely. BiPAP can also be given for his sleep apnea. Thank you very much, Dr. Sanchez and Dr. Qureshi for this consult. Please call for questions. MD [place] Alanis/MODL /[id number]
[2019-07-29] VITALS (7 sets, daily range): BP systolic 119–152; BP diastolic 68–85
--- NOTE | 2019-07-29 00:41 | History and Physical ---
CHIEF COMPLAINT: Shortness of breath. HISTORY OF PRESENT ILLNESS: The patient was seen and evaluated earlier this morning on 07/28/2019, but the chart was dictated later in the day. This is a 53-year-old male, very noncompliant with his medical care, has a history of heart failure, hyperlipidemia, type 2 diabetes, hypertension, as well as type 2 diabetes, comes into the ED with complaints of underlying shortness of breath as well as some chest discomfort. The patient reports that he was taking the diuretics at home, but did not help at all. He denies any current chest pain, palpitation, nausea, or vomiting. He does state that he is very noncompliant with the salt intake. The patient was seen and evaluated at bedside on the medical floor. Currently, he is doing well. Cardiology and Pulmonary have been consulted. REVIEW OF SYSTEMS: Pertinent Positives: Orthopnea, dyspnea on exertion, lower extremity edema. Pertinent Negatives: Denies any chest pain, palpitation, nausea, vomiting, diarrhea, dysuria, hematuria, frequency, urgency, lightheadedness, dizziness, abdominal pain, headaches, cough, congestion, fever, or any other complaints. The rest of the 14-point review of systems are reviewed with the patient and are negative. ALLERGIES: NO KNOWN DRUG ALLERGIES. HOME MEDICATIONS: He takes acetylcysteine, Lipitor, Coreg, Levemir, nifedipine, prednisone, theophylline, aspirin, Bumex, Jackson. PAST SURGICAL HISTORY: Reports none. FAMILY HISTORY: Hypertension and diabetes. SOCIAL HISTORY: No drugs. No alcohol. Does not smoke. Good social support. PHYSICAL EXAMINATION: VITAL SIGNS: Temperature is 97.7, pulse is 70, respiratory rate is 19, blood pressure is 121/65, pulse ox 96% on 3 L nasal cannula chronically. GENERAL: No acute distress. Alert and oriented x3. Cooperative on examination. HEENT: Head is atraumatic and atraumatic. Eyes; pupils are equal, round, and reactive to light bilaterally. Extraocular movements are intact bilaterally. Throat, no evidence of erythema or exudates in the posterior pharynx. Has poor dentition. NECK: Supple. Good range of motion. PULMONARY: He has positive rales. Positive crackles. CARDIOVASCULAR: Positive S1, S2. No murmurs, rubs, or gallops appreciated. ABDOMEN: Soft, nontender to palpation. Bowel sounds present. MUSCULOSKELETAL: Strength is 5/5 throughout. No evidence of muscle deficits on examination. No weakness appreciated. NEUROLOGIC: Cranial nerves II through XII grossly intact. No evidence of any neurological deficits on exam. SKIN: Intact. Warm to touch. Good cap refill. PSYCHIATRIC: Normal affect and mood. EXTREMITIES: He does have 1 to 2+ pedal edema in bilateral lower extremities. LABORATORY DATA: Labs showed white count 8.2, hemoglobin 12, hematocrit 39, and platelets of 313. Chemistry shows sodium 139, potassium 4, chloride 98, bicarbonate 28, BUN 16, creatinine 1.2. The rest of the LFTs were normal. Troponins were negative. Albumin 3.7. Urinalysis negative. MICROBIOLOGY: None. IMAGING: Chest x-ray shows some central vascular congestion. IMPRESSION: 1. Acute exacerbation of congestive heart failure with diastolic dysfunction. 2. Wcdzf-tf-nebveuo respiratory failure with underlying hypoxia. 3. Hypertension. 4. Hyperlipidemia. 5. Type 2 diabetes. 6. Chronic obstructive pulmonary disease. PLAN: At this time, I will put on Lasix drip 10 mg/hour cardioprotective medications. Replace electrolytes accordingly. Cardiology has been consulted. As for his pulmonary status, I did consult with Pulmonary to come evaluate and treat. Resume same antihypertensive medications. Insulin sliding scale, Accu-Cheks, long-acting insulin. Encourage ambulation. Put on a heart-healthy diet. Lovenox for DVT prophylaxis. MD HERMES Freeman/MODL /[id number]
[2019-07-29] MEDS: IPRATROPIUM BROMIDE 0.02% 2.5 ML NEB NEB SCH ×4 (01:05→20:45)
[2019-07-29] MEDS: FUROSEMIDE INJ 100 MG in SODIUM CHLORIDE 0.9% 100 ML 90 ML IV SCH ×3 (03:46→21:03)
[2019-07-29 05:54] LABS: BASOPHILS % 0.1 % (0.0-1.0); HEMATOCRIT 38.8 % (38.2-49.6); LYMPHOCYTES # (AUTO) 1.2 (1.0-3.2); LYMPHOCYTES % 15.9 % (18.0-39.1); MEAN CORPUSCULAR HEMOGLOBIN 28.5 pg (28-32); MEAN CORPUSCULAR HGB CONC 30.9 g/dL (31-35); MEAN CORPUSCULAR VOLUME 92.2 fL (81-99); MONOCYTES # (AUTO) 0.1 (0.2-0.8); MONOCYTES % 1.5 % (4.4-11.3); NEUTROPHILS # (AUTO) 5.9 (2.1-6.9); NEUTROPHILS % 82.1 % (38.7-80.0); PLATELET COUNT 305 x10e3/uL (140-360); RED BLOOD COUNT 4.21 x10e6/uL (4.3-5.7); RED CELL DISTRIBUTION WIDTH 13.4 % (11.7-14.4)
[2019-07-29 06:16] LABS: ANION GAP 16.3 mmol/L (8-16); BLOOD UREA NITROGEN 19 mg/dL (7-26); BUN/CREATININE RATIO 16 (6-25); CALCIUM 10.1 mg/dL (8.4-10.2); CARBON DIOXIDE 29 mmol/L (22-29); CHLORIDE 92 mmol/L (98-107); EST GLOMERULAR FILTRATION RATE > 60 ML/MIN (60-); GLUCOSE 366 mg/dL (74-118); POTASSIUM 4.3 mmol/L (3.5-5.1); SODIUM 133 mmol/L (136-145)
--- NOTE | 2019-07-29 06:58 | Diagnostic Imaging Report ---
Examination: Single AP view of the chest. COMPARISON: Chest 2 views 07/27/2019 INDICATION: Shortness of breath, CHF IMPRESSION: 1. Lines and Tubes: None 2. Mildly hypoinflated lungs. Linear opacities are again noted in the left mid and lower lung, likely representing subsegmental atelectasis. Mild atelectatic changes are also seen in the right lower lung. No effusion or pneumothorax. No consolidation. 3. Cardiomediastinal silhouette is normal. Central vascular congestion. 4. No acute bony abnormalities. Signed by: Dr. Eduardo House M.D. on 07/29/2019 6:55 AM
[2019-07-29] MEDS ORDERED: ONDANSETRON HCL 4 MG ORAL DISINTEGRATING TAB PO PRN (08:15)
[2019-07-29] MEDS: CARVEDILOL 12.5 MG TAB PO SCH ×2 (08:26→17:36)
[2019-07-29] MEDS: NIFEDIPINE CR 30 MG TAB PO SCH (08:28)
[2019-07-29] MEDS: ASPIRIN 81 MG ENTERIC COATED PO SCH (08:29)
[2019-07-29] MEDS: HYDROCODONE/APAP 5MG-325MG TAB PO PRN (08:30)
[2019-07-29] MEDS: INSULIN LISPRO 100 UNIT/1 ML 3ML VIAL SQ SCH ×4 (08:52→21:12)
[2019-07-29] MEDS ORDERED: PREDNISONE 10 MG TAB PO SCH (09:00)
--- NOTE | 2019-07-29 09:17 | NUR ---
obs review done, sent to outside md review group for >24 hr obs
[2019-07-29] MEDS: METHYLPREDNISOLONE SOD SUCC 40 MG/ML VIAL 1ML IV SCH (10:07)
[2019-07-29] MEDS: THEOPHYLLINE 200 MG TABCR PO SCH (10:08)
--- NOTE | 2019-07-29 11:34 | Progress Note ---
DATE: Cardiology Progress Note SUBJECTIVE: The patient reports mild improvement in his shortness of breath. No chest pain. OBJECTIVE: VITAL SIGNS: Temperature is 98, heart rate is 92, respirations are 20, blood pressure is 119/73, and oxygen saturation is 98% on 3 L nasal cannula. GENERAL: He is well-appearing, man, seated at bedside. HEAD: Normocephalic and atraumatic. CARDIOVASCULAR: Regular rate and rhythm. LUNGS: Diminished breath sounds with scattered rales. ABDOMEN: Soft, nontender, and nondistended. EXTREMITIES: 1+ edema. CARDIOVASCULAR MEDICATIONS: Reviewed include nifedipine, carvedilol, Lasix drip, atorvastatin, and aspirin. LABORATORY DATA: Reviewed. Hemoglobin 12. Creatinine 1.2. Negative troponins. Telemetry monitoring revealed normal sinus rhythm. IMPRESSION: 1. Xoxfa-jt-maxteot diastolic heart failure. 2. Tofem-yn-wwjijtz respiratory failure with hypoxia. 3. Hypertension. 4. Hyperlipidemia. 5. Diabetes mellitus. 6. Chronic obstructive pulmonary disease. RECOMMENDATIONS: The patient ruled out for acute myocardial infarction. Cardiac catheterization in November 2017 at [facility] showed no significant obstructive disease. Continue with diuresis with his Lasix drip. Continue all other antihypertensives. Wean oxygen as tolerated. COPD treatment per primary team. DO VAHE Núñez/MODL /[id number]
--- NOTE | 2019-07-29 13:50 | Progress Note ---
DATE: 07/29/2019 Medicine Progress Note SUBJECTIVE: The patient states breathing much better today. Lower extremity edema improved tremendously. PHYSICAL EXAMINATION: VITAL SIGNS: Temperature is 97.6, pulse 71, respiratory rate is 20, blood pressure is 134/76, pulse ox 94% on 2 L nasal cannula chronically. GENERAL: Not in acute distress. Alert and oriented x3. Cooperative on examination. HEENT: Head; atraumatic and atraumatic. Eyes; pupils are equal, round, and reactive to light bilaterally. Extraocular movements are intact bilaterally. Throat, no evidence of erythema or exudates in the posterior pharynx. Has poor dentition. NECK: Supple. Good range of motion. PULMONARY: Clear to auscultation bilaterally. No wheezing, rales, or rhonchi. No crackles appreciated. CARDIOVASCULAR: Positive S1, S2. No murmurs, rubs, or gallops appreciated. ABDOMEN: Soft, nontender to palpation. Bowel sounds present. MUSCULOSKELETAL: Strength is 5/5 throughout. No evidence of muscle deficits on examination. No weakness appreciated. NEUROLOGIC: Cranial nerves 2 through 12 grossly intact. No evidence of any neurological deficits on exam. SKIN: Intact. Warm to touch. Good cap refill. PSYCHIATRIC: Normal affect and mood. EXTREMITIES: No edema. Good range of motion throughout. LABORATORY DATA: Labs show white count 7.2, hemoglobin 12, hematocrit is 38, and platelets of 305. Coagulation noted. Chemistry; sodium 133, potassium 4.3, chloride 92, bicarb 29, anion gap is 16, BUN is 19, creatinine is 1.2, glucose was 342. Troponins were negative. MICROBIOLOGY: None. IMAGING STUDIES: Chest x-ray shows no consolidation, no effusion, or pneumothorax. Otherwise stable. There is some central vascular congestion, but improved. IMPRESSION: 1. Acute exacerbation of congestive heart failure with diastolic dysfunction. 2. Acute on chronic respiratory failure with underlying hypoxia on nasal cannula chronically. 3. Hypertension. 4. Hyperlipidemia. 5. Type 2 diabetes. 6. Chronic obstructive pulmonary disease. PLAN: At this time, continue with Lasix drip at 10 mg/h. Continue with cardioprotective medications. Replace electrolytes accordingly. Cardiology has been following. As per Pulmonary, the patient will continue on nasal cannula and monitored by Pulmonary. Continue antihypertensive medications. Insulin sliding scale, Accu-Cheks. Otherwise, we will continue with same plan of care and monitor very closely. The patient had a left heart catheterization back in November 2017, it showed no significant obstructive disease. We will continue with same plan of care. Monitor closely. MD HERMES Freeman/MODL /[id number]
--- NOTE | 2019-07-29 15:09 | NUR ---
Pulmonary Medicine DATE 07/29/2019 SUBJECTIVE: CXR WITH MILd overload still urinating a lot, on lasix drip 10/hr patient with better breathing eating well used bipap REVIEW OF SYSTEMS: no headaches, no rash OBJECTIVE: VITAL SIGNS: vital signs noted and reviewed per the chart record. GENERAL: no acute distress, alert and calm. HEENT: Normocephalic, atraumatic. NECK: Supple. Throat midline. LUNGS: Bilateral air entry, decreased breath sounds mildly, but few rhonchi. CARDIOVASCULAR: S1, S2. No murmurs, rubs, or gallops. ABDOMEN: Soft, nontender, and obese. EXTREMITIES: No clubbing. No cyanosis. 1+ edema to legs. INTEGUMENT: No rash. No purpura. LABORATORY DATA: 4.3 k, cr 1.2. wbc 7.23, hct 39, plt 305 IMPRESSION AND PLAN: 1. Fluid overload, acute on chronic diastolic dysfunction. 2. Obesity hypoventilation syndrome. 3. Acute respiratory failure, BiPAP salvage. 4. Obstructive sleep apnea. 5. Nonallergic asthma. 6. Hypertension. 7. Diabetes. wean steroids Continue bronchodilators. continue lasix drip bipap at night for his sleep apnea. Thank you very much, Dr. Sanchez and Dr. Qureshi for this consult. Please call for questions.
[2019-07-29] MEDS: ENOXAPARIN SOD INJ 40 MG/0.4 ML SYR SC SCH (17:00)
[2019-07-29] MEDS: ATORVASTATIN 20 MG TAB PO SCH (21:10)
[2019-07-29] MEDS: INSULIN GLARGINE 100 UNITS/ML VIAL SQ SCH (21:13)
[2019-07-30] VITALS (7 sets, daily range): BP systolic 124–136; BP diastolic 58–78
[2019-07-30] MEDS: IPRATROPIUM BROMIDE 0.02% 2.5 ML NEB NEB SCH ×3 (01:30→13:50)
[2019-07-30 05:46] LABS: BASOPHILS % 0.2 % (0.0-1.0); EOSINOPHILS % 0.2 % (0.0-6.0); HEMATOCRIT 37.2 % (38.2-49.6); HEMOGLOBIN 11.9 g/dL (14.0-18.0); LYMPHOCYTES # (AUTO) 3.3 (1.0-3.2); LYMPHOCYTES % 25.9 % (18.0-39.1); MEAN CORPUSCULAR HEMOGLOBIN 29.2 pg (28-32); MEAN CORPUSCULAR VOLUME 91.2 fL (81-99); MONOCYTES # (AUTO) 1.1 (0.2-0.8); MONOCYTES % 8.6 % (4.4-11.3); NEUTROPHILS # (AUTO) 8.4 (2.1-6.9); NEUTROPHILS % 64.9 % (38.7-80.0); PLATELET COUNT 291 x10e3/uL (140-360); RED BLOOD COUNT 4.08 x10e6/uL (4.3-5.7); RED CELL DISTRIBUTION WIDTH 13.5 % (11.7-14.4)
[2019-07-30 06:07] LABS: ANION GAP 15.7 mmol/L (8-16); BLOOD UREA NITROGEN 19 mg/dL (7-26); BUN/CREATININE RATIO 17 (6-25); CALCIUM 10.1 mg/dL (8.4-10.2); CARBON DIOXIDE 32 mmol/L (22-29); CHLORIDE 93 mmol/L (98-107); EST GLOMERULAR FILTRATION RATE > 60 ML/MIN (60-); GLUCOSE 179 mg/dL (74-118); POTASSIUM 3.7 mmol/L (3.5-5.1); SODIUM 137 mmol/L (136-145)
--- NOTE | 2019-07-30 06:19 | Diagnostic Imaging Report ---
Examination: Single AP view of the chest. COMPARISON: AP chest 07/29/2019 INDICATION: Chest pain, shortness of breath IMPRESSION: 1. Lines and Tubes: None 2. Mildly hypoinflated lungs. Worsening linear opacity in the left lower lung and stable linear opacity in the right midlung, likely representing subsegmental atelectasis. Atelectatic changes are also seen in the right lower lung. No effusion or pneumothorax. No consolidation. 3. Cardiomediastinal silhouette is normal. Central vascular congestion. 4. No acute bony abnormalities. Signed by: Dr. Eduardo House M.D. on 07/30/2019 6:15 AM
--- NOTE | 2019-07-30 06:24 | NUR ---
Rosalinda Degroot notified of patient WBC 12.86 this morning, notified by phone, doctor stated "You woke me up for that, this tis ridiculous", then hung up on me, assume NNO, patient seen resting in room, sitting up in bed, afebrile, at bedside, reports no pain or discomfort at this time
--- NOTE | 2019-07-30 07:12 | NUR ---
SBAR report given to JEROME Farrar
[2019-07-30] MEDS: INSULIN LISPRO 100 UNIT/1 ML 3ML VIAL SQ SCH ×2 (07:30→12:55)
[2019-07-30] MEDS: ASPIRIN 81 MG ENTERIC COATED PO SCH (09:00)
[2019-07-30] MEDS ORDERED: PREDNISONE 20 MG TAB PO SCH (09:00)
[2019-07-30] MEDS: FUROSEMIDE INJ 100 MG in SODIUM CHLORIDE 0.9% 100 ML 90 ML IV SCH (09:16)
[2019-07-30] MEDS: CARVEDILOL 12.5 MG TAB PO SCH (09:19)
[2019-07-30] MEDS: NIFEDIPINE CR 30 MG TAB PO SCH (09:20)
[2019-07-30] MEDS: THEOPHYLLINE 200 MG TABCR PO SCH (09:20)
[2019-07-30] MEDS ORDERED: PREDNISONE20 MG PO (14:42)
[2019-07-30] MEDS ORDERED: POTASSIUM CHLORIDE 20 MEQ TAB CR PO ONE (15:08)
[2019-07-30] MEDS ORDERED: INFLUENZA VIRUS VAC SPLIT INJ 0.5 ML SYR IM ONE (15:15)
--- NOTE | 2019-07-30 19:01 | Progress Note ---
DATE: 07/30/2019 Cardiology Progress Note SUBJECTIVE: The patient denies chest pain. Reports his shortness of breath is better. OBJECTIVE: VITAL SIGNS: Temperature 97 degrees, pulse 81, respiratory rate 18, blood pressure 136/73, oxygen saturation 98% on 3 L nasal cannula. GENERAL: Awake, alert, no acute distress. LUNGS: Clear to auscultation bilaterally. No wheezes or crackles. CARDIOVASCULAR: Normal rate, regular rhythm. No murmur. Normal S1, S2. ABDOMEN: Soft, nontender. EXTREMITIES: 1+ pitting edema. CARDIAC MEDICATIONS: Nifedipine 30 mg p.o. daily, carvedilol 12.5 mg p.o. b.i.d., Lasix drip, atorvastatin 20 mg p.o. every night at bedtime. LABORATORY DATA: WBC 12.86, hemoglobin 0.9, hematocrit 37.2, platelets 291. Sodium 137, potassium 3.7, chloride 93, CO2 of 32, BUN 19, and creatinine 1.1. TELEMETRY: Normal sinus rhythm. IMPRESSION: 1. Qqejy-uy-yrpdica diastolic heart failure. 2. Acute on chronic hypoxic respiratory failure. 3. Hypertension. 4. Hyperlipidemia. 5. Diabetes mellitus. 6. Chronic obstructive pulmonary disease. RECOMMENDATIONS: The patient ruled out for myocardial infarction. Cardiac catheterization November 2017 at [facility] showed no significant obstructive disease. Continue diuresis. Continue current cardiac medications. Management of COPD per Pulmonary. Thank you for this consult. We will continue to follow. Mee Lu MD ABS/MODL /[id number]
--- NOTE | 2019-07-31 02:09 | NUR ---
Pulmonary Medicine DATE 07/30/2019 SUBJECTIVE: steady progress lasix drip lownormal k REVIEW OF SYSTEMS: no headaches, no rash OBJECTIVE: VITAL SIGNS: vital signs noted and reviewed per the chart record. GENERAL: no acute distress, alert and calm. HEENT: Normocephalic, atraumatic. NECK: Supple. Throat midline. LUNGS: Bilateral air entry, decreased breath sounds mildly, but few rhonchi. CARDIOVASCULAR: S1, S2. No murmurs, rubs, or gallops. ABDOMEN: Soft, nontender, and obese. EXTREMITIES: No clubbing. No cyanosis. 1+ edema to legs. INTEGUMENT: No rash. No purpura. LABORATORY DATA: k 3.7, cr 1.1. wbc 13, IMPRESSION AND PLAN: 1. Fluid overload, acute on chronic diastolic dysfunction. 2. Obesity hypoventilation syndrome. 3. Acute respiratory failure, BiPAP salvage. 4. Obstructive sleep apnea. 5. Nonallergic asthma. 6. Hypertension. 7. Diabetes. wean steroids Continue bronchodilators. dc jaminix phong home rx k bipap at night for his sleep apnea. Thank you very much, Dr. Sanchez and Dr. Qureshi for this consult. Please call for questions.
--- NOTE | 2019-07-31 20:01 | Discharge Summary ---
FINAL DISCHARGE DIAGNOSES: 1. Acute exacerbation of congestive heart failure with diastolic dysfunction. 2. Dpevi-jt-qdkpovg respiratory failure, on nasal cannula chronically. 3. Obstructive sleep apnea. 4. Hypertension. 5. Hyperlipidemia. 6. Type 2 diabetes. 7. Steroid-induced leukocytosis. CONSULTANTS: Pulmonary and Cardiology. PHYSICAL EXAMINATION: VITAL SIGNS: Temperature is 97.4, pulse 94, respiratory rate is 20, blood pressure 125/58, and pulse ox 97% on 3 L nasal cannula chronically. LABORATORY DATA: White count was 12.8, hemoglobin 11.8, hematocrit 37, and platelets of 291. Coagulation; PT 12, INR 0.91, and PTT 28. Chemistry; sodium 137, potassium 3.7, chloride 93, bicarb 32, anion gap is 15, BUN is 19, creatinine is 1.1, glucose 179, and calcium is 10.1. His troponins were all negative. Albumin was 3.7. Urinalysis was negative. MICROBIOLOGY: None. IMAGING STUDIES: Chest x-ray on discharge 07/30/2019, shows no effusion or pneumothorax. He does have chronic atelectatic changes. He does have a chronic stable opacity seen. HOSPITAL COURSE: This is a 53-year-old male with known history of CHF with diastolic dysfunction, medical noncompliance, and also has chronic O2 usage, comes into the ED with complaints of underlying lower extremity edema and shortness of breath. While here, the patient was started on Lasix drip at 10 mg/hour and had significant amount of diuresing. Good urine output was produced. Pulmonary and Cardiology were consulted. As per Cardiology, the patient did not establish care with outside quality control clerk, in which they were consulted here to establish care. The patient maintained on cardioprotective medications, Lasix drip. The patient is doing well after diuresing him. Pulmonary was consulted and he was started on his steroids that he takes chronically at home. He was on neb treatments as well. The patient has been cleared for discharge by Cardiology and Pulmonary for discharge to home. He needs close followup with the appropriate consultants as an outpatient. On the day of discharge, vital signs were stable, labs reviewed and stable. The patient is seen and evaluated, and examined thoroughly on the day of discharge. No other complaints. The patient verbalized understanding and agreed to plan of care to follow up accordingly as an outpatient with the primary care physician in 1 week and Cardiology and Pulmonary in 2 weeks' time. The patient was on steroids and his white count was elevated. This is likely secondary to steroid-induced leukocytosis. He was afebrile and normotensive. He was doing well. He had no other issues prior to being discharged to home. MEDICATIONS: See med reconciliation form. DISPOSITION: Home. CONDITION: Stable. DIET: Heart healthy. In the event of any worsening symptoms, the patient was advised to come back to the ED for further evaluation. Discharge summary took greater than 35 minutes. MD HERMES Freeman/MODL /[id number]
== END 2019-07-30 15:50 | disposition home or self-care (01) | DRG 291 ==
LOC: ER 19:25 → ERHOLD 07-28 03:59 → MED/SURG 07-28 09:17 → OBSVTOIN 07-29 12:02
PROVIDERS: ADMIT Internal Medicine; ATTEND Internal Medicine
DX: I11.0 Hypertensive heart disease with heart failure (principal); J96.21 Acute and chronic respiratory failure with hypoxia; Z68.41 Body mass index [BMI] 40.0-44.9, adult; I50.33 Acute on chronic diastolic (congestive) heart failure; G47.33 Obstructive sleep apnea (adult) (pediatric); E78.5 Hyperlipidemia, unspecified; E11.9 Type 2 diabetes mellitus without complications; D72.829 Elevated white blood cell count, unspecified; T38.0X5A Adverse effect of glucocorticoids and synthetic analogues, initial encounter; R60.0 Localized edema; J44.9 Chronic obstructive pulmonary disease, unspecified; E66.01 Morbid (severe) obesity due to excess calories; J45.909 Unspecified asthma, uncomplicated
CPT/HCPCS: 36415; 71045; 71046; 80048; 80053; 81001; 82550; 82553; 82948; 83735; 83880; 84484; 85025; 85610; 85730; 93005; 94640; 96372; 99284; G0378; J0456; J1650; J1815; J1940; J2920; J7050; J7512

== ENCOUNTER 2019-10-28 12:58 | Inpatient (IN) | payer MEDICARE, OTHER ==
[~2019-10-28] VITALS: Ht 180.3 cm; Wt 145.1 kg
[2019-10-28] MEDS ORDERED: METHYLPREDNISOLONE SOD SUCC 125 MG/2ML VIAL IV STA (13:07)
[2019-10-28] MEDS ORDERED: ALBUTEROL SULF 0.083% NEB SOLN 3 ML NEB NEB STA (13:07)
[2019-10-28] MEDS ORDERED: IPRATROPIUM BROMIDE 0.02% 2.5 ML NEB NEB STA (13:07)
[2019-10-28] MEDS ORDERED: ASPIRIN 81 MG CHEW TAB PO ONE (13:15)
[2019-10-28] MEDS ORDERED: PIPER-TAZ 3.375 GM 50 ML IV SCH (14:00)
[2019-10-28] MEDS ORDERED: ACETAMINOPHEN 325 MG TAB PO ONE (14:10)
--- NOTE | 2019-10-28 14:15 | NUR ---
pt refused covid testing stating he knows he doesn't have it and wanted in the room but due to covid isolation it was explained to pt that he could not have visitors for his and her protection pt states that wasn't going to work for him due to issues at home stating his home isn't set up for him to be away and once again refused covid testing; dr mitchell spoke with pt about getting tested and pt again refuses stating he would like to leave and get his home situated then come back; it was explained to pt that is not almeida and if he left he would be leaving ama
[2019-10-28 15:05] LABS: ABG PH 7.34 (7.31-7.41)
--- NOTE | 2019-10-28 15:05 | Diagnostic Imaging Report ---
Examination: Single AP view of the chest. COMPARISON: 2 view chest 08/14/2019 INDICATION: Shortness of breath, fatigue, bodyaches DISCUSSION: The lungs are well-inflated. Linear opacity in the left mid and lower lung compatible with subsegmental atelectasis or fibrotic change, without significant interval change compared to prior. No new consolidation. Tortuous thoracic aorta with otherwise normal cardiomediastinal contour when accounting for portable, AP technique. No acute osseous abnormality. IMPRESSION: Stable linear opacity in the left mid and lower lung, likely atelectasis or fibrotic change. No new consolidations. Signed by: Dr. Enrique Peterson M.D. on 10/28/2019 3:02 PM
[2019-10-28 15:06] LABS: ABG HCO3 40 mmol/L (23-28); ABG PCO2 75 mmHg (41-51)
[2019-10-28 15:41] LABS: BASOPHILS % 0.2 % (0.0-1.0); EOSINOPHILS # (AUTO) 0.1 (0.0-0.4); EOSINOPHILS % 1.3 % (0.0-6.0); HEMATOCRIT 40.5 % (38.2-49.6); HEMOGLOBIN 12.3 g/dL (14.0-18.0); LYMPHOCYTES # (AUTO) 1.8 (1.0-3.2); LYMPHOCYTES % 19.8 % (18.0-39.1); MEAN CORPUSCULAR HEMOGLOBIN 28.1 pg (28-32); MEAN CORPUSCULAR HGB CONC 30.4 g/dL (31-35); MEAN CORPUSCULAR VOLUME 92.7 fL (81-99); MONOCYTES # (AUTO) 0.7 (0.2-0.8); MONOCYTES % 8.1 % (4.4-11.3); NEUTROPHILS # (AUTO) 6.3 (2.1-6.9); NEUTROPHILS % 70.4 % (38.7-80.0); PLATELET COUNT 206 x10e3/uL (140-360); RED BLOOD COUNT 4.37 x10e6/uL (4.3-5.7)
[2019-10-28 15:52] LABS: ALANINE AMINOTRANSFERASE 18 IU/L (0-55); ALBUMIN 3.6 g/dL (3.5-5.0); ALKALINE PHOSPHATASE 66 IU/L (40-150); ANION GAP 9.3 mmol/L (8-16); BLOOD UREA NITROGEN 10 mg/dL (7-26); BUN/CREATININE RATIO 11 (6-25); CALCIUM 9.4 mg/dL (8.4-10.2); CARBON DIOXIDE 39 mmol/L (22-29); CHLORIDE 94 mmol/L (98-107); CREATINE KINASE 113 IU/L (30-200); CREATININE, SERUM 0.88 mg/dL (0.72-1.25); EST GLOMERULAR FILTRATION RATE > 60 ML/MIN (60-); GLUCOSE 197 mg/dL (74-118); MAGNESIUM 2.1 MG/DL (1.3-2.1); POTASSIUM 4.3 mmol/L (3.5-5.1); SODIUM 138 mmol/L (136-145)
[2019-10-28 15:59] LABS: INFLUENZAE A&B ANTIGEN (RAPID) NEGATIVE (NEGATIVE)
[2019-10-28 16:04] LABS: STREPTOCOCCUS GRP A ANTIGEN POSITIVE (NEGATIVE)
[2019-10-28 16:12] LABS: THYROID STIMULATING HORMONE 1.101 uIU/mL (0.350-4.940)
--- NOTE | 2019-10-28 16:24 | NUR ---
francis from radiology informs nurse and md that pt refused ct scan stating his shoulders are too broad to fit into the machine
[2019-10-28 16:30] LABS: INR 0.96; PARTIAL THROMBOPLASTIN TIME 28.7 seconds (23.8-35.5); PROTHROMBIN TIME 13.4 seconds (11.9-14.5)
[2019-10-28 20:00] VITALS: BP 155/95
[2019-10-28] MEDS: INSULIN GLARGINE 100 UNITS/ML VIAL SQ SCH (21:00)
[2019-10-28] MEDS ORDERED: THEOPHYLLINE A200 MG PO (21:07)
[2019-10-28 21:30] VITALS: BP 155/95
--- NOTE | 2019-10-28 21:51 | Consultation ---
DATE OF CONSULTATION: REASON FOR CONSULTATION: Pneumonia, sepsis, acute congestive heart failure, and shortness of breath. HISTORY OF PRESENT ILLNESS: This patient, who is a 54-year-old male, who has history of obesity, history of congestive heart failure, history of hypertension. The patient, who was on home oxygen sometimes. He tells me that he takes care of it with Bumex, but sometimes he comes to the emergency room because he is short of breath. The patient for the last 2 days has been having more shortness of breath than usual. He denies any cough. He denies any fever. He came to the emergency room. Workup resulted and found to have Streptococcus antigen positive and he is being admitted. PAST MEDICAL HISTORY: The patient, who does have underlying history of obesity, hypertension, diabetes, COPD, congestive heart failure, end-stage renal disease, anxiety, hyperlipidemia, chronic back pain, cardiomyopathy, chronic systolic congestive heart failure, and sleep apnea. PAST SURGICAL HISTORY: Total knee replacement on the left. ALLERGIES: LISINOPRIL. SOCIAL HISTORY: There is no smoking, drug abuse, or alcohol abuse. FAMILY HISTORY: Hypertension. MEDICATIONS: At home reviewed. Discussed the case with the ER physician. PHYSICAL EXAMINATION: GENERAL: He is currently alert, but a little bit short of breath. VITAL SIGNS: Stable, currently temperature 100.6, heart rate 110, respiration 26, and blood pressure 145/108. HEENT: He is not icteric. NECK: Supple. CHEST: Clear. Few crackles at the bases. COR: S1 and S2. No S3, S4, or murmur. ABDOMEN: Soft. IMPRESSION: 1. I think the patient has sepsis, on admission due to Streptococcus pneumoniae. 2. Kprrj-ka-umwdkph congestive heart failure. 3. Obesity. 4. From Infectious Disease point of view, would recommend to put the patient on Rocephin 2 g daily and to give diuresis as ordered. We will give Lasix at 20 IV now. Consider Cardiology evaluation. 5. Other medical problem per Internal Medicine. Discussed with the patient. We will follow. The patient need to be up-to-date on his vaccinations for pneumonia and influenza. MD JOSÉ MIGUEL Hermosillo/SATHYA /[id number]
[2019-10-28] MEDS ORDERED: DOCUSATE SODIUM 100 MG CAP PO PRN (22:00)
[2019-10-28] MEDS ORDERED: ONDANSETRON HCL INJ 2MG/ML 2ML 2 MG/ML VIAL IV PRN (22:00)
[2019-10-28] MEDS ORDERED: ACETAMINOPHEN 325 MG TAB PO PRN (22:00)
[2019-10-28 22:09] LABS: CHOL/HDL RATIO 5.2 (3.9-4.7)
[2019-10-28] MEDS ORDERED: NIFEDIPINE CR 30 MG TAB PO STA (22:57)
[2019-10-29] VITALS (8 sets, daily range): BP systolic 123–139; BP diastolic 62–86
[2019-10-29] MEDS: ZOLPIDEM TARTRATE 10 MG TAB PO SCH (00:47)
[2019-10-29] MEDS: HYDROCODONE/APAP 10MG-325MG TAB PO PRN ×3 (00:48→22:40)
[2019-10-29] MEDS: CEFTRIAXONE SOD 2 GM/NS 100 ML 100 ML IV SCH ×2 (00:50→22:40)
[2019-10-29 06:31] LABS: HEMATOCRIT 37.5 % (38.2-49.6); HEMOGLOBIN 11.5 g/dL (14.0-18.0); LYMPHOCYTES # (AUTO) 1.3 (1.0-3.2); LYMPHOCYTES % 15.1 % (18.0-39.1); MEAN CORPUSCULAR HGB CONC 30.7 g/dL (31-35); MEAN CORPUSCULAR VOLUME 91.2 fL (81-99); MONOCYTES # (AUTO) 0.5 (0.2-0.8); MONOCYTES % 5.4 % (4.4-11.3); NEUTROPHILS # (AUTO) 6.8 (2.1-6.9); NEUTROPHILS % 79.3 % (38.7-80.0); PLATELET COUNT 219 x10e3/uL (140-360); RED BLOOD COUNT 4.11 x10e6/uL (4.3-5.7)
--- NOTE | 2019-10-29 06:32 | NUR ---
H&P cc: fever/sob HPI: 54yoM, PCP pt does not recall, developed fever/sob, with resp failure needing BIPAP support. PMH: DM2, HTN, HLD, Diastolic CHF, ZION, Obesity Hypoventilation Syndrome, Severe obesity, BMI 40s, acute resp failure, Asthma/COPD, PSHx: unknown ALlergies; see emr FH/SH: no illicits meds; see MAR ROS: unreliable v/s; revd PE tired appearing; BIPAP anicteric ns1s2 Reduced BS soft nt nd no e/t skin dry flat affect awake labs/meds revd A/P: Acute URI- antimicrobials; f/u serologies; Group A Strep infection- ceftriaxone Hypercapneic Chr resp failure- use BIPAP OHS/ZION- use BIPAP Severe obesity- use ADA diet BMI 44.6- as above DM2- Hba1c/LDL 9.8/120; ADA diet Diastolic CHF- monitor fluid balance HTN- home meds Prop: scd dispo: f/u testing Hussein Sanchez MD, PhD.
[2019-10-29 07:01] LABS: CREATINE KINASE MB 2.6 ng/mL (0-5.0)
--- NOTE | 2019-10-29 07:35 | NUR ---
PATIENT IN BED RESTING WITH HEAD OF BED ELEVATED, CPAP IN PLACE. BED IN LOWER POSITION, CALL LIGHT AT REACH.
[2019-10-29] MEDS: INSULIN LISPRO 100 UNIT/1 ML 3ML VIAL SQ SCH ×3 (08:00→17:30)
[2019-10-29] MEDS: CARVEDILOL 12.5 MG TAB PO SCH ×2 (09:19→17:15)
[2019-10-29] MEDS: ASPIRIN 81 MG CHEW TAB PO SCH (09:19)
[2019-10-29] MEDS: THEOPHYLLINE 200 MG TABCR PO SCH (10:20)
--- NOTE | 2019-10-29 11:30 | NUR ---
DR DYER IN TO SEE PATIENT, NO NEW ORDER RECEIVED.
--- NOTE | 2019-10-29 12:19 | Consultation ---
DATE OF CONSULTATION: 10/29/2019 Pulmonary Medicine Consult HISTORY OF PRESENT ILLNESS: Mr. Mcqueen is a pleasant 54-year-old gentleman with shortness of breath. The patient with [facility] ER presentation on October 28, 2019. At that time, the patient had complained of chest pain and shortness of breath. The patient was having some myalgias. He denies any throat pain. Some very mild congestion in the lungs. He had some subjective fever that day and had 100.6 measured in the emergency room. Subsequently, this is his maximum temperature so far. He is well known to me and I am consulted. The patient with 7.34/75/94% on oxygenation on ABG. The patient with BNP of 81. Of note, the patient with a throat group A streptococcal screen positive. Influenza screen was negative on antigen. PAST MEDICAL HISTORY: Asthma, nonallergic. Hypertension, diabetes, obesity hypoventilation syndrome, obstructive sleep apnea, history of knee and ankle surgery. MEDICATIONS: Medication list reviewed per the chart record. ALLERGIES: LISINOPRIL. SOCIAL HISTORY: No smoking, no drinking, no drugs. FAMILY HISTORY: Noncontributory. REVIEW OF SYSTEMS: GENERAL: No weight changes. OPHTHALMOLOGIC: No double vision. ENT: No mouth ulcers. ENDOCRINE: No known thyroid disease. PULMONARY: No hemoptysis. CARDIAC: No heart attack. GI: No GI polyps known. UROLOGY: No blood in urine. NEUROLOGIC: No seizures. DERMATOLOGIC: No rash. PSYCHIATRIC: No depression. OBJECTIVE: VITAL SIGNS: Afebrile, vital signs noted, reviewed per the chart record. GENERAL: In no acute distress, alert and calm now, looks little better. HEENT: Normocephalic, atraumatic. NECK: Supple. Throat midline. LUNGS: Bilateral air entry, decreased breath sounds, mostly clear with rare rhonchi. CARDIOVASCULAR: S1, S2. No murmurs, rubs, or gallops. ABDOMEN: Soft, nontender. EXTREMITIES: No clubbing. No cyanosis. There is 1+ edema to the legs. INTEGUMENT: No rash. No purpura. LABORATORY DATA: 8.5 white count, 37 hematocrit, and platelets 219. 4.3 potassium, 10 BUN, 0.88 creatinine. IMPRESSION AND PLAN: 1. Acute hypercapnic respiratory failure. 2. Mild fluid overload. 3. Unclear prodrome, possible viral syndrome with chills and myalgias. 4. Obesity hypoventilation syndrome. 5. Nonallergic asthma. 6. Hypertension. 7. Diabetes. BiPAP given, now off. Continue oxygen. Continue bronchodilators. Low-dose steroids wean. Follow along closely. Thank you very much for this consult, Dr. Sanchez. Please call for questions. MD ALBANIA Alanis/MODL /[id number]
[2019-10-29] MEDS: FUROSEMIDE 40 MG TAB PO SCH (12:33)
[2019-10-29] MEDS: IPRATROPIUM BROMIDE 0.02% 2.5 ML NEB NEB SCH (12:40)
[2019-10-29] MEDS: ALBUTEROL SULF 0.083% NEB SOLN 3 ML NEB NEB PRN (12:45)
[2019-10-29 15:06] LABS: CREATINE KINASE MB 1.7 ng/mL (0-5.0)
--- NOTE | 2019-10-29 16:17 | NUR ---
O2 EXTENSION CORD APPLIED. SITTING AT BED SIDE WATCHING TV, CALL LIGHT AT REACH.
[2019-10-29] MEDS ORDERED: INSULIN GLARGINE 100 UNITS/ML VIAL SQ SCH (21:00)
[2019-10-29] MEDS ORDERED: ZOLPIDEM TARTRATE 10 MG TAB PO SCH (21:00)
[2019-10-29] MEDS: NIFEDIPINE CR 30 MG TAB PO SCH (22:30)
[2019-10-29] MEDS: ATORVASTATIN 20 MG TAB PO SCH (22:30)
--- NOTE | 2019-10-29 22:30 | NUR ---
PATIENT RESTING IN RECLINER IN STABLE CONDITION, NO SIGNS OF DISTRESS NOTED. NASAL CANNULA INTACT AND RUNNING AT 4 LITERS, PATIENT VOICES PAIN AT A LEVEL OF 7 AND WAS MEDICATED ORDERED. IV ANTIBIOTICS ARE RUNNING AT ORDERED RATE, PATIENT IS PLACED ON DROPLET PRECAUTIONS, PPE HAS BEEN USED. BED IS IN LOWEST POSITION, BOTH SIDE RAILS ARE UP, CALL LIGHT IS WITHIN REACH, WILL CONTINUE TO MONITOR.
[2019-10-30] VITALS (8 sets, daily range): BP systolic 108–136; BP diastolic 55–93
[2019-10-30] MEDS: IPRATROPIUM BROMIDE 0.02% 2.5 ML NEB NEB SCH ×4 (02:00→19:36)
--- NOTE | 2019-10-30 07:28 | NUR ---
IM- progress note O/N: see below ROS: unreliable v/s; revd PE tired appearing; BIPAP anicteric [id number] Reduced BS soft nt nd no e/t skin dry flat affect awake labs/meds revd A/P: Acute URI- antimicrobials; f/u serologies; Group A Strep infection- ceftriaxone Hypercapneic Chr resp failure- use BIPAP OHS/ZION- use BIPAP Severe obesity- use ADA diet BMI 44.6- as above DM2- Hba1c/LDL 9.8/120; ADA diet Diastolic CHF- monitor fluid balance HTN- home meds Prop: scd dispo: f/u testing Hussein Sanchez MD, PhD.
[2019-10-30] MEDS: ALBUTEROL SULF 0.083% NEB SOLN 3 ML NEB NEB PRN ×2 (07:45→19:36)
[2019-10-30] MEDS: HYDROCODONE/APAP 10MG-325MG TAB PO PRN ×2 (08:00→21:15)
[2019-10-30] MEDS: FUROSEMIDE 40 MG TAB PO SCH (08:05)
[2019-10-30] MEDS: THEOPHYLLINE 200 MG TABCR PO SCH (08:05)
[2019-10-30] MEDS: ASPIRIN 81 MG CHEW TAB PO SCH (08:05)
[2019-10-30] MEDS: CARVEDILOL 12.5 MG TAB PO SCH ×2 (08:05→16:59)
[2019-10-30] MEDS: INSULIN LISPRO 100 UNIT/1 ML 3ML VIAL SQ SCH ×3 (08:05→16:49)
--- NOTE | 2019-10-30 09:22 | NUR ---
Bedside shift report received from night nurse. Patient is resting in recliner. No acute distress noted. Call light within reach.
[2019-10-30] MEDS ORDERED: LEVAQUIN500 MG PO (12:06)
--- NOTE | 2019-10-30 13:36 | NUR ---
Pulmonary Medicine DATE 10/30/2019 SUBJECTIVE: Patient with steady progress No fevers No recurrent myalgias Remains on oxygen by [place] REVIEW OF SYSTEMS: no headaches, no rash OBJECTIVE: VITAL SIGNS: vital signs noted, reviewed per the chart record. GENERAL: NAD, alert and calm now HEENT: Normocephalic, atraumatic. NECK: Supple. Throat midline. LUNGS: Bilateral air entry, decreased breath sounds, mostly clear with rare rhonchi. CARDIOVASCULAR: S1, S2. No murmurs, rubs, or gallops. ABDOMEN: Soft, nontender. EXTREMITIES: No clubbing. No cyanosis. 1-2+ leg edema INTEGUMENT: No rash. No purpura. LABORATORY DATA: no new updates IMPRESSION AND PLAN: 1. Acute hypercapnic respiratory failure. off rescue BIPAP now 2. Mild fluid overload. 3. Unclear prodrome, possible viral syndrome with chills and myalgias. 4. Obesity hypoventilation syndrome. 5. Nonallergic asthma. 6. Hypertension. 7. Diabetes. BiPAP for sleep Continue oxygen by [place] Continue bronchodilators Antibiotics Gentle diuretics Follow along closely. Thank you very much for this consult, Dr. Sanchez. Please call for questions.
[2019-10-30] MEDS ORDERED: BISACODYL 5 MG TAB EC PO PRN (15:30)
[2019-10-30] MEDS: BUMETANIDE 1 MG TAB PO SCH (16:59)
[2019-10-30] MEDS ORDERED: ONDANSETRON HCL 4 MG ORAL DISINTEGRATING TAB PO PRN (17:15)
--- NOTE | 2019-10-30 18:58 | NUR ---
Bedside shift report given to oncoming nurse. Patient is resting in bed. No acute distress noted at this time. Call light within reach. Bed in the lowest position.
[2019-10-30] MEDS: INSULIN GLARGINE 100 UNITS/ML VIAL SQ SCH (21:15)
[2019-10-30] MEDS: NIFEDIPINE CR 30 MG TAB PO SCH (21:15)
[2019-10-30] MEDS: ZOLPIDEM TARTRATE 10 MG TAB PO SCH (21:15)
[2019-10-30] MEDS: ATORVASTATIN 20 MG TAB PO SCH (21:15)
[2019-10-30] MEDS: CEFTRIAXONE SOD 2 GM/NS 100 ML 100 ML IV SCH (22:11)
[2019-10-31] VITALS: BP 124/84
[2019-10-31] MEDS: IPRATROPIUM BROMIDE 0.02% 2.5 ML NEB NEB SCH ×2 (00:35→07:19)
[2019-10-31 04:00] VITALS: BP 115/60
--- NOTE | 2019-10-31 07:18 | NUR ---
D/C summary Principal Dx: Acute URI- antimicrobials; f/u serologies; Group A Strep infection- ceftriaxone Hypercapneic Chr resp failure- use BIPAP OHS/ZION- use BIPAP Severe obesity- use ADA diet BMI 44.6- as above Secondary Dx: DM2- Hba1c/LDL 9.8/120; ADA diet Diastolic CHF- monitor fluid balance HTN- home meds Prop: scd dispo: f/u testing 3-27 d/c planning; dc home stable f/u pcp 1 week d/c>35mins Hussein Sanchez MD, PhD.
[2019-10-31] MEDS: ALBUTEROL SULF 0.083% NEB SOLN 3 ML NEB NEB PRN (07:19)
--- NOTE | 2019-10-31 07:31 | NUR ---
PATIENT IN BED WITH HEAD OF BED ELEVATED WATCHING TV, NO DISTRESS NOTED. O2 IN PLACE VIA N/C. CALL LIGHT AT REACH.
[2019-10-31 07:40] VITALS: BP 137/75
[2019-10-31 08:00] VITALS: BP 137/75
[2019-10-31] MEDS: INSULIN LISPRO 100 UNIT/1 ML 3ML VIAL SQ SCH ×2 (08:00→12:00)
[2019-10-31] MEDS: CARVEDILOL 12.5 MG TAB PO SCH (09:23)
[2019-10-31] MEDS: BUMETANIDE 1 MG TAB PO SCH (09:23)
[2019-10-31] MEDS: ASPIRIN 81 MG CHEW TAB PO SCH (09:23)
[2019-10-31] MEDS: THEOPHYLLINE 200 MG TABCR PO SCH (09:24)
[2019-10-31] MEDS: HYDROCODONE/APAP 10MG-325MG TAB PO PRN (11:20)
--- NOTE | 2019-10-31 11:22 | NUR ---
PATIENT C/O PAIN AND WAS MEDICTED ORDERED. OUT OF BED TO CHAIR WITH CALL LIGHT AT REACH.
--- NOTE | 2019-10-31 11:40 | NUR ---
PT ON ISOLATION, GAVE IMM TO NURSE TO OBTAIN SIGNATURES AND PUT IN CHART.
[2019-10-31 12:00] VITALS: BP 127/71
--- NOTE | 2019-10-31 13:30 | NUR ---
PATIENT DISCHARGED HOME. DISCHARGE INSTRUCTIONS, PRESCRIPTION, AND FOLLOW UP GIVEN TO PATIENT, HE VERBALIZED UNDERSTANDING. IV TO LEFT AC REMOVED WITH TIP INTACT. ALL PERSONAL ITEMS TAKEN WITH PATIENT. LEFT UNIT PER WHEEL CHAIR TO FRONT LOBBY IN STABLE CONDITION.
--- NOTE | 2019-10-31 15:30 | NUR ---
Pulmonary Medicine DATE 10/31/2019 SUBJECTIVE: BETTER AGAIN 5 L/min oxygen bipap on standby used biappa at night REVIEW OF SYSTEMS: no headaches, no rash OBJECTIVE: VITAL SIGNS: vital signs noted, reviewed per the chart record. GENERAL: NAD, alert and calm now HEENT: Normocephalic, atraumatic. NECK: Supple. Throat midline. LUNGS: Bilateral air entry, decreased breath sounds, mostly clear with rare rhonchi. CARDIOVASCULAR: S1, S2. No murmurs, rubs, or gallops. ABDOMEN: Soft, nontender. EXTREMITIES: No clubbing. No cyanosis. 1-2+ leg edema INTEGUMENT: No rash. No purpura. LABORATORY DATA: no new updates IMPRESSION AND PLAN: 1. Acute hypercapnic respiratory failure. off rescue BIPAP now 2. Mild fluid overload. 3. Unclear prodrome, possible viral syndrome with chills and myalgias. 4. Obesity hypoventilation syndrome. 5. Nonallergic asthma. 6. Hypertension. 7. Diabetes. BiPAP for sleep Continue oxygen by [place] Continue bronchodilators Antibiotics Gentle diuretics Follow along closely. discharge planning Thank you very much for this consult, Dr. Sanchez. Please call for questions.
== END 2019-10-31 13:25 | disposition home or self-care (01) | DRG 871 ==
LOC: ER 12:58 → ERHOLD 16:09 → MED/SURG3 20:15 → OBSVTOIN 10-29 06:35
PROVIDERS: ADMIT Internal Medicine; ATTEND Internal Medicine
PROC: 5A09357 Assistance with Respiratory Ventilation, Less than 24 Consecutive Hours, Continuous Positive Airway Pressure (ICD-10-PCS; principal; 2019-10-29)
DX: A41.9 Sepsis, unspecified organism (principal); J18.9 Pneumonia, unspecified organism; J96.02 Acute respiratory failure with hypercapnia; I50.33 Acute on chronic diastolic (congestive) heart failure; Z68.41 Body mass index [BMI] 40.0-44.9, adult; J44.0 Chronic obstructive pulmonary disease with (acute) lower respiratory infection; E66.2 Morbid (severe) obesity with alveolar hypoventilation; I11.0 Hypertensive heart disease with heart failure; E11.9 Type 2 diabetes mellitus without complications; B95.0 Streptococcus, group A, as the cause of diseases classified elsewhere; Z99.81 Dependence on supplemental oxygen
CPT/HCPCS: 36415; 36600; 71045; 80053; 80061; 82550; 82553; 82805; 82948; 82977; 83036; 83518; 83605; 83735; 83880; 84443; 84484; 85025; 85610; 85730; 87040; 87400; 87633; 87635; 93005; 94640; 94660; 99284; G0378; J0696; J1815; J2543; J2930

== ENCOUNTER → 2020-01-27 | Outpatient (CLI) | payer MEDICARE ==
[~2020-01-27] MED LIST changes: +LEVAQUIN500 MG PO
== END ==
LOC: RESP 13:17
PROVIDERS: ATTEND Internal Medicine Critical Care Medicine
DX: J45.909 Unspecified asthma, uncomplicated (principal); J96.10 Chronic respiratory failure, unspecified whether with hypoxia or hypercapnia; I10 Essential (primary) hypertension; E66.2 Morbid (severe) obesity with alveolar hypoventilation
CPT/HCPCS: 94060; 94727; 94729